=== PATIENT | male | born 1940 | race Caucasian/White ===

== ENCOUNTER 2023-02-27 12:58 | Observation (INO) | payer MEDICARE, SELFPAY ==
[2023-02-27] VITALS (31 sets, daily range): BP systolic 67–111; BP diastolic 37–73; PULSE 59–76; RESP 12–28; TEMP 36.7–37; O2SAT 77–100; BMI 24.9; BMI 25.5
--- NOTE | 2023-02-27 13:19 | XR_ITS ---
The [address] [address] Patient Name: JESÚS BARR MRN: [id number] date: 1940 Sex: M Assigned Patient Location: ER Current Patient Location: ER Accession/Order Number: [id number] Exam Date: 02/27/2023 13:30 Report Date: 02/27/2023 13:47 At the request of: SRINIVASAN SALDANA Procedure: XR chest 1V EXAM: XR chest 1V HISTORY: Dizziness COMPARISON: None. TECHNIQUE: Chest X-ray, 1 view. FINDINGS: Support devices: None. Lungs/pleura: No radiographic evidence of edema or infiltrate. No consolidation, effusion, or pneumothorax. Heart and mediastinum: Normal contours. Bones: No acute abnormality identified. XR/XR chest 1V IMPRESSION: No active disease. Electronically authenticated by: DENNIS SANABRIA Date: 02/27/2023 13:47
--- NOTE | 2023-02-27 13:19 | CT_ITS ---
The [address] [address] Patient Name: JESÚS BARR MRN: [id number] date: 1940 Sex: M Assigned Patient Location: ER Current Patient Location: ER Accession/Order Number: [id number] Exam Date: 02/27/2023 13:27 Report Date: 02/27/2023 13:48 At the request of: SRINIVASAN SALDANA Procedure: CT stroke head/brain wo con EXAM: CT stroke head/brain wo con; [id number] REASON FOR EXAM: Confusion COMPARISON: None. TECHNIQUE: Axial CT images of the head obtained without contrast. Multiplanar reformats generated at the scanner. Dose reduction technique used: Automated exposure control and/or adjustment of the mA and/or kV according to patient size and/or use of iterative reconstruction technique. FINDINGS: Parenchyma: -Mild generalized cerebral volume loss. -No midline shift or mass effect. Basilar cisterns are patent. -No acute intracranial hemorrhage. -No loss of cortical howell-white differentiation to indicate acute cortical infarct. -Moderate multifocal and bilateral periventricular white matter predominant hypoattenuation, nonspecific though commonly seen in the setting of chronic microvascular ischemic disease. Extra-axial spaces: No extra-axial fluid collection or hemorrhage. Ventricles: Normal in size and symmetric. Paranasal sinuses: Visualized paranasal sinuses are clear. Mastoid air cells: Visualized mastoids are clear. Orbits: No acute abnormality. Osseous: No acute findings. Soft tissues: No acute abnormality. CT/CT stroke head/brain wo con IMPRESSION: No acute intracranial abnormality. Electronically authenticated by: ZIA DENT Date: 02/27/2023 13:48
--- NOTE | 2023-02-27 13:24 | PC.NURSE ---
ortho BP standing 96/51, hr 68, pt denies dizziness with changing positions
--- NOTE | 2023-02-27 13:28 | PC.NURSE ---
reports low blood pressure started recently and it was reported that BP low this morning 1 - 1.5 hrs prior to feeling dizzy and confused
--- NOTE | 2023-02-27 13:35 | ED.GENADUL1 ---
Documented by User: MABEL Hilliard 02/27/23 15:11 HPI - General Adult General Chief complaint: Dizziness Stated complaint: DIZZINESS Time Seen by Provider: 02/27/23 13:18 Source: patient Mode of arrival: Wheelchair History of Present Illness HPI narrative: patient is an 82-year-old male who presents to the emergency department for dizziness and an episode of confusion at home prior to arrival. Patient had a colonoscopy yesterday at [facility]. He states he tolerated a colonoscopy well, he had a sandwich last night and had coffee and a doughnut this morning. He states he was feeling dizzy after taking his blood pressure medication this morning although dizziness is resolved at this time. He denies headache, visual changes. 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 He had an episode of confusion lasting approximately one hour at home, he states that he was blank and couldn't remember the name of his PCP who he has seen for many years or the name of his 's sister. believes that his speech may have been mildly slurred although he did not have any unilateral weakness or facial drooping. After the confusion resolved, the patient is at his baseline with no focal medical complaints at this time. he has no history of coronary artery disease, CVA. He does not take any blood thinners although his gave him a baby aspirin this morning. Related Data Home Medications Medication Instructions Recorded Confirmed aspirin 81 mg tablet,delayed 81 mg PO DAILY 02/27/23 02/27/23 release (Adult Aspirin Regimen) lisinopril 10 1 tab PO DAILY 02/27/23 02/27/23 mg-hydrochlorothiazide 12.5 mg tablet metoprolol succinate 25 mg 25 mg PO DAILY 02/27/23 02/27/23 tablet,extended release 24 hr multivitamin (Daily Multi-Vitamin 1 tab PO DAILY 02/27/23 02/27/23 tablet) omeprazole 40 mg capsule,delayed 40 mg PO DAILY 02/27/23 02/27/23 release saw palmetto 450 mg capsule 900 mg PO DAILY 02/27/23 02/27/23 tamsulosin 0.4 mg capsule 0.8 mg PO Q24H 02/27/23 02/27/23 Allergies Allergy/AdvReac Type Severity Reaction Status Date / Time ciprofloxacin [From Cipro] Allergy Severe Verified 02/27/23 13:05 Review of Systems ROS Constitutional Denies: fever or chills Eyes Denies: change in vision Ears, nose, mouth, and throat Denies: throat pain Cardiovascular Denies: chest pain Respiratory Denies: shortness of breath or cough Gastrointestinal Denies: abdominal pain, nausea or vomiting Genitourinary Reports: urinary dribbling; Denies: painful urination Musculoskeletal Denies: back pain or neck pain Integumentary/Breast Denies: rash Neurological Reports: numbness in extremities and dizziness; Denies: headache or weakness in extremities Psychiatric Denies: anxiety Allergic/Immunologic Denies: hives [facility] Medical History (Updated 02/27/23 @ 16:47 by Angely Tamayo) Surgical History (Updated 02/27/23 @ 16:43 by Angely Tamayo) (~02/26/23) (~02/26/23) Social History (Updated 02/27/23 @ 16:48 by Angely Tamayo) Within the past year, how often did you have a drink containing alcohol: monthly or less Smoking status: Current every day smoker What tobacco products do you use: cigars Non-prescribed substance use: denies use 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 Clear speech Respiratory: No respiratory distress, lungs clear bilaterally Cardio: Regular rate and rhythm Gastrointestinal: Abdomen is soft, nondistended and nontender to palpation Extremities: Moves extremities equally Psych: Normal mood and affect Neuro: No focal neuro deficit; NIH stroke scale is 0 at time of exam Skin: Warm, dry, intact Constitutional Vital Signs, click to edit/add: Last Vital Signs Temp 98.1 F 02/27/23 16:39 Pulse 66 02/27/23 19:42 Resp 18 02/27/23 16:39 BP 99/51 02/27/23 16:39 Pulse Ox 95 02/27/23 19:21 O2 Del Method Room Air 02/27/23 19:21 Course Vital Signs Vital signs: Vital Signs Temperature 98.1 F 02/27/23 13:05 Pulse Rate 70 02/27/23 13:05 Respiratory Rate 16 02/27/23 13:05 Blood Pressure 111/59 02/27/23 13:05 Pulse Oximetry 98 02/27/23 13:05 Oxygen Delivery Method Room Air 02/27/23 13:05 Temperature 98.1 F 02/27/23 16:39 Pulse Rate 66 02/27/23 19:42 Respiratory Rate 18 02/27/23 16:39 Blood Pressure 99/51 02/27/23 16:39 Pulse Oximetry 95 02/27/23 19:21 Oxygen Delivery Method Room Air 02/27/23 19:21 Medical Decision Making MDM Narrative Medical decision making narrative: patient was treated with IV fluids for hypotension, he has an NIH stroke scale of zero in the Emergency Room. CT of the brain was stroke protocol, chest x-ray are unremarkable. A 2nd liter of IV fluids were given for hypotension in the Emergency Room although the patient's mentation remained stable. Labs are grossly normal. Discussed with Dr. Salinas (1445pm) for admission to hospitalist service for transient ischemic attack/hypotension. patient requested medication for pain in the left arm, consistent with his chronic polyneuropathy. He was treated with Tylenol in the Emergency Room. Discussed the case with Dr. Lal (1500pm) for [facility] Neu[facility] who is in agreement with treatment plan and admission to this facility for further workup and teleneurology consult as needed. Patient is stable at time of admission, given 324mg of aspirin prior to admission. Blood pressure is 96/55. Patient reevaluated by attending physician prior to admission Medical Records Medical records reviewed: Yes I reviewed the patient's medical records Lab Data Lab results reviewed: Yes I reviewed the patient's lab results Labs: Lab Results 02/27/23 Range/Units 13:30 WBC 11.2 H (4.0-11.0) 10^3/uL RBC 4.02 L (4.70-6.10) 10^6/uL Hgb 12.8 L (14.0-18.0) g/dL Hct 38.4 L (42.0-54.0) % MCV 95.5 H (80.0-94.0) fL MCH 31.8 (25.9-34.0) pg MCHC 33.3 (29.9-35.2) g/dL RDW 13.3 (11.0-15.0) % Plt Count 187 (150-450) 10^3/uL MPV 10.8 (9.5-13.5) fL Neut % (Auto) 76.5 H (43.0-75.0) % Lymph % (Auto) 13.0 L (20.5-60.0) % [place] % (Auto) 8.9 (1.7-12.0) % Eos % (Auto) 0.8 L (0.9-7.0) % Baso % (Auto) 0.4 (0.2-2.0) % Neut # (Auto) 8.6 H (1.4-6.5) 10^3/uL Lymph # (Auto) 1.5 (1.2-3.8) 10^3/uL [place] # (Auto) 1.0 H (0.3-0.8) 10^3/uL Eos # (Auto) 0.1 (0.0-0.7) 10^3/uL Baso # (Auto) 0.0 (0.0-0.1) 10^3/uL Abs Immat Gran (auto) 0.04 H (0.00-0.03) 10^3/uL Imm/Tot Granulo (auto) 0.4 (0.0-0.5) % PT 10.9 (9.0-11.6) sec INR 1.03 Sodium 138 (136-145) mmol/L Potassium 3.6 (3.5-5.1) mmol/L Chloride 100 (98-107) mmol/L Carbon Dioxide 31.8 (21.0-32.0) mmol/L Anion Gap 9.8 BUN 19.0 H (7.0-18.0) mg/dL Creatinine 1.02 (0.70-1.30) mg/dL Est GFR ( Amer) >60 (>=60) Est GFR (Non-Af Amer) >60 (>=60) BUN/Creatinine Ratio 18.6 Glucose 103 (74-106) mg/dL Lactate 1.0 (0.4-2.0) mmol/L Calcium 9.0 (8.5-10.1) mg/dL Total Bilirubin 1.2 H (0.2-1.0) mg/dL AST 30 (15-37) U/L ALT 26 (16-63) U/L Alkaline Phosphatase 167 H (46-116) U/L Troponin I High Sens 7.2 (4.0-76.1) pg/mL Total Protein 6.7 (6.4-8.2) g/dL Albumin 3.5 (3.4-5.0) g/dL Globulin 3.2 g/dL Albumin/Globulin Ratio 1.1 TSH 1.203 (0.358-3.740) uIU/mL Imaging Data CT scan - head: Attestation: I have reviewed the pertinent imaging results. Radiologist's impression: Procedure: CT stroke head/brain wo con EXAM: CT stroke head/brain wo con; [id number] REASON FOR EXAM: Confusion COMPARISON: None. TECHNIQUE: Axial CT images of the head obtained without contrast. Multiplanar reformats generated at the scanner. Dose reduction technique used: Automated exposure control and/or adjustment of the mA and/or kV according to patient size and/or use of iterative reconstruction technique. FINDINGS: Parenchyma: -Mild generalized cerebral volume loss. -No midline shift or mass effect. Basilar cisterns are patent. -No acute intracranial hemorrhage. -No loss of cortical howell-white differentiation to indicate acute cortical infarct. -Moderate multifocal and bilateral periventricular white matter predominant hypoattenuation, nonspecific though commonly seen in the setting of chronic microvascular ischemic disease. Extra-axial spaces: No extra-axial fluid collection or hemorrhage. Ventricles: Normal in size and symmetric. Paranasal sinuses: Visualized paranasal sinuses are clear. Mastoid air cells: Visualized mastoids are clear. Orbits: No acute abnormality. Osseous: No acute findings. Soft tissues: No acute abnormality. IMPRESSION: No acute intracranial abnormality. Electronically authenticated by: ZIA DENT Date: 02/27/2023 13:48 Chest x-ray: Attestation: I have reviewed the pertinent imaging results. Radiologist's impression: Procedure: XR chest 1V EXAM: XR chest 1V HISTORY: Dizziness COMPARISON: None. TECHNIQUE: Chest X-ray, 1 view. FINDINGS: Support devices: None. Lungs/pleura: No radiographic evidence of edema or infiltrate. No consolidation, effusion, or pneumothorax. Heart and mediastinum: Normal contours. Bones: No acute abnormality identified. IMPRESSION: No active disease. Electronically authenticated by: DENNIS SANABRIA Date: 02/27/2023 13:47 ECG Data Attestation: I personally reviewed and interpreted this ECG as follows: (normal sinus rhythm at a rate of sixty, artifact noted with first-degree AV block and right bundle branch block. No acute ST elevation or ectopy. EKG is reviewed by attending physician) Discharge Plan Discharge Chief Complaint: Dizziness Clinical Impression: Acute hypotension, TIA (transient ischemic attack), Acute confusion Patient Disposition: Admitted as Observation Time of Disposition Decision: 14:53 Condition: Good Discharge Date/Time: 02/27/23 16:15 Documented by User: Joel Nayak MD 02/27/23 20:04 HPI - General Adult General Chief complaint: Dizziness Stated complaint: DIZZINESS Time Seen by Provider: 02/27/23 13:18 Related Data Home Medications Medication Instructions Recorded Confirmed aspirin 81 mg tablet,delayed 81 mg PO DAILY 02/27/23 02/27/23 release (Adult Aspirin Regimen) lisinopril 10 1 tab PO DAILY 02/27/23 02/27/23 mg-hydrochlorothiazide 12.5 mg tablet metoprolol succinate 25 mg 25 mg PO DAILY 02/27/23 02/27/23 tablet,extended release 24 hr multivitamin (Daily Multi-Vitamin 1 tab PO DAILY 02/27/23 02/27/23 tablet) omeprazole 40 mg capsule,delayed 40 mg PO DAILY 02/27/23 02/27/23 release saw palmetto 450 mg capsule 900 mg PO DAILY 02/27/23 02/27/23 tamsulosin 0.4 mg capsule 0.8 mg PO Q24H 02/27/23 02/27/23 Allergies Allergy/AdvReac Type Severity Reaction Status Date / Time ciprofloxacin [From Cipro] Allergy Severe Verified 02/27/23 13:05 [facility] Medical History (Updated 02/27/23 @ 16:47 by Angely Tamayo) Surgical History (Updated 02/27/23 @ 16:43 by Angely Tamayo) (~02/26/23) (~02/26/23) Social History (Updated 02/27/23 @ 16:48 by Angely Tamayo) Within the past year, how often did you have a drink containing alcohol: monthly or less Smoking status: Current every day smoker What tobacco products do you use: cigars Non-prescribed substance use: denies use 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 Highest level of school completed/degree received: high school graduate Exam Constitutional Vital Signs, click to edit/add: Last Vital Signs Temp 98.1 F 02/27/23 16:39 Pulse 66 02/27/23 19:42 Resp 18 02/27/23 16:39 BP 99/51 02/27/23 16:39 Pulse Ox 95 02/27/23 19:21 O2 Del Method Room Air 02/27/23 19:21 Course Vital Signs Vital signs: Vital Signs Temperature 98.1 F 02/27/23 13:05 Pulse Rate 70 02/27/23 13:05 Respiratory Rate 16 02/27/23 13:05 Blood Pressure 111/59 02/27/23 13:05 Pulse Oximetry 98 02/27/23 13:05 Oxygen Delivery Method Room Air 02/27/23 13:05 Temperature 98.1 F 02/27/23 16:39 Pulse Rate 66 02/27/23 19:42 Respiratory Rate 18 02/27/23 16:39 Blood Pressure 99/51 02/27/23 16:39 Pulse Oximetry 95 02/27/23 19:21 Oxygen Delivery Method Room Air 02/27/23 19:21 Medical Decision Making MDM Narrative Medical decision making narrative: patient was treated with IV fluids for hypotension, he has an NIH stroke scale of zero in the Emergency Room. CT of the brain was stroke protocol, chest x-ray are unremarkable. A 2nd liter of IV fluids were given for hypotension in the Emergency Room although the patient's mentation remained stable. Labs are grossly normal. Discussed with Dr. Salinas (1445pm) for admission to hospitalist service for transient ischemic attack/hypotension. patient requested medication for pain in the left arm, consistent with his chronic polyneuropathy. He was treated with Tylenol in the Emergency Room. Discussed the case with Dr. Lal (1500pm) for [facility] Neurology who is in agreement with treatment plan and admission to this facility for further workup and teleneurology consult as needed. Patient is stable at time of admission, given 324mg of aspirin prior to admission. Blood pressure is 96/55. Patient reevaluated by attending physician prior to admission I, Dr Nayak, have reviewed the above progress note and course of action in the ER; agree with the above. I have personally seen and evaluated this patient, gone over history and physical, and discussed disposition and treatment plan with the patient. Lab Data Labs: Lab Results 02/27/23 Range/Units 13:30 WBC 11.2 H (4.0-11.0) 10^3/uL RBC 4.02 L (4.70-6.10) 10^6/uL Hgb 12.8 L (14.0-18.0) g/dL Hct 38.4 L (42.0-54.0) % MCV 95.5 H (80.0-94.0) fL MCH 31.8 (25.9-34.0) pg MCHC 33.3 (29.9-35.2) g/dL RDW 13.3 (11.0-15.0) % Plt Count 187 (150-450) 10^3/uL MPV 10.8 (9.5-13.5) fL Neut % (Auto) 76.5 H (43.0-75.0) % Lymph % (Auto) 13.0 L (20.5-60.0) % [place] % (Auto) 8.9 (1.7-12.0) % Eos % (Auto) 0.8 L (0.9-7.0) % Baso % (Auto) 0.4 (0.2-2.0) % Neut # (Auto) 8.6 H (1.4-6.5) 10^3/uL Lymph # (Auto) 1.5 (1.2-3.8) 10^3/uL [place] # (Auto) 1.0 H (0.3-0.8) 10^3/uL Eos # (Auto) 0.1 (0.0-0.7) 10^3/uL Baso # (Auto) 0.0 (0.0-0.1) 10^3/uL Abs Immat Gran (auto) 0.04 H (0.00-0.03) 10^3/uL Imm/Tot Granulo (auto) 0.4 (0.0-0.5) % PT 10.9 (9.0-11.6) sec INR 1.03 Sodium 138 (136-145) mmol/L Potassium 3.6 (3.5-5.1) mmol/L Chloride 100 (98-107) mmol/L Carbon Dioxide 31.8 (21.0-32.0) mmol/L Anion Gap 9.8 BUN 19.0 H (7.0-18.0) mg/dL Creatinine 1.02 (0.70-1.30) mg/dL Est GFR ( Amer) >60 (>=60) Est GFR (Non-Af Amer) >60 (>=60) BUN/Creatinine Ratio 18.6 Glucose 103 (74-106) mg/dL Lactate 1.0 (0.4-2.0) mmol/L Calcium 9.0 (8.5-10.1) mg/dL Total Bilirubin 1.2 H (0.2-1.0) mg/dL AST 30 (15-37) U/L ALT 26 (16-63) U/L Alkaline Phosphatase 167 H (46-116) U/L Troponin I High Sens 7.2 (4.0-76.1) pg/mL Total Protein 6.7 (6.4-8.2) g/dL Albumin 3.5 (3.4-5.0) g/dL Globulin 3.2 g/dL Albumin/Globulin Ratio 1.1 TSH 1.203 (0.358-3.740) uIU/mL Discharge Plan Discharge Chief Complaint: Dizziness Clinical Impression: Acute hypotension, TIA (transient ischemic attack), Acute confusion Patient Disposition: Admitted as Observation Time of Disposition Decision: 14:53 Condition: Good Discharge Date/Time: 02/27/23 16:15
[2023-02-27 13:53] LABS: Basophils Percent Auto 0.4 % (0.2-2.0); Eosinophils Absolute Auto 0.1 10^3/uL (0.0-0.7); Eosinophils Percent Auto 0.8 % (0.9-7.0); Hematocrit 38.4 % (42.0-54.0); Hemoglobin 12.8 g/dL (14.0-18.0); Immature Granulocytes Abs Auto 0.04 10^3/uL (0.00-0.03); Immature Granulocytes Pct Auto 0.4 % (0.0-0.5); Lymphocytes Absolute Auto 1.5 10^3/uL (1.2-3.8); Mean Corpuscular HGB Conc 33.3 g/dL (29.9-35.2); Mean Corpuscular Hemoglobin 31.8 pg (25.9-34.0); Mean Corpuscular Volume 95.5 fL (80.0-94.0); Mean Platelet Volume 10.8 fL (9.5-13.5); Monocytes Percent Auto 8.9 % (1.7-12.0); Neutrophils Absolute Auto 8.6 10^3/uL (1.4-6.5); Neutrophils Percent Auto 76.5 % (43.0-75.0); Platelet Count 187 10^3/uL (150-450); Red Blood Count 4.02 10^6/uL (4.70-6.10); Red Cell Distribution Width 13.3 % (11.0-15.0); White Blood Count 11.2 10^3/uL (4.0-11.0)
[2023-02-27] MEDS: 0.9 % SODIUM CHLORIDE 1,000 ML 100 ML IV (13:57)
[2023-02-27 14:02] LABS: INR 1.03; Prothrombin Time 10.9 sec (9.0-11.6)
[2023-02-27 14:15] LABS: Alanine Aminotransferase 26 U/L (16-63); Albumin Globulin Ratio 1.1; Albumin Level 3.5 g/dL (3.4-5.0); Alkaline Phosphatase 167 U/L (46-116); Anion Gap 9.8; Aspartate Amino Transferase 30 U/L (15-37); BUN Creatinine Ratio 18.6; Bilirubin Total 1.2 mg/dL (0.2-1.0); Carbon Dioxide 31.8 mmol/L (21.0-32.0); Chloride 100 mmol/L (98-107); Estimated GFR (African America >60 (>=60); Estimated GFR (Non-African Ame >60 (>=60); Globulin 3.2 g/dL; Glucose 103 mg/dL (74-106); Potassium 3.6 mmol/L (3.5-5.1); Sodium 138 mmol/L (136-145); Thyroid Stimulating Hormone 1.203 uIU/mL (0.358-3.740); Total Protein 6.7 g/dL (6.4-8.2); Troponin I High Sensitivity 7.2 pg/mL (4.0-76.1)
[2023-02-27] MEDS: 0.9 % SODIUM CHLORIDE 1,000 ML 1000 ML IV (14:35)
--- NOTE | 2023-02-27 14:48 | ECG_ITS ---
The [facility] Test Date: 2023-02-27 Pat Name: JESÚS BARR Department: Room: - Gender: Male R And D Lab Technician: : 1940 Requested By: ARIELLA CHAMBERS Order Number: [id number] Reading MD: ARIELLA CHAMBERS Measurements Intervals [place] Rate: 60 P: 81 SD: 272 QRS: 84 QRSD: 148 T: 48 QT: 468 QTc: 468 Interpretive Statements 1100 Sinus rhythm 2231 First degree AV block 2450 Right bundle branch block 9150 abnormal ECG No previous ECG available for comparison Electronically Signed On 02-28-2023 7:09:04 EDT by ARIELLA CHAMBERS
[2023-02-27] MEDS: ACETAMINOPHEN 325 MG TABLET 650 MG PO (15:13)
[2023-02-27] MEDS: ASPIRIN 81 MG TAB.CHEW 324 MG PO (15:13)
[2023-02-27] MEDS: HYDROXYZINE PAMOATE 25 MG CAPSULE PO (15:47)
[2023-02-27] MEDS: GABAPENTIN 100 MG CAPSULE PO (15:47)
[2023-02-27] MEDS: LACTATED RINGER'S SOLUTION 1,000 ML 100 ML IV (18:19)
[2023-02-27 18:27] LABS: Anion Gap 7.3; BUN Creatinine Ratio 17.3; Calcium 8.5 mg/dL (8.5-10.1); Chloride 103 mmol/L (98-107); Estimated GFR (African America >60 (>=60); Estimated GFR (Non-African Ame >60 (>=60); Glucose 174 mg/dL (74-106); Potassium 3.3 mmol/L (3.5-5.1); Sodium 139 mmol/L (136-145)
[2023-02-27 18:50] LABS: Bilirubin Urine NEGATIVE (NEGATIVE); Blood Urine NEGATIVE (NEGATIVE); Clarity Urine CLEAR (CLEAR); Color Urine DK. YELLOW (YELLOW); Glucose Urine UA NEGATIVE (NEGATIVE); Ketones Urine 15 mg/dL (NEGATIVE); Leukocyte Esterase Urine NEGATIVE (NEGATIVE); Nitrite Urine NEGATIVE (NEGATIVE); Protein Urine NEGATIVE (NEG/TRACE); Specific Gravity Urine 1.015 (1.005-1.025); Urobilinogen Urine 0.2 EU/dL (0.2-1.0); pH Urine 6.5 (5.0-9.0)
[2023-02-27 18:57] LABS: Bacteria Urine TRACE #/HPF (NONE SEEN); Cast Seen? NONE SEEN #/LPF (NONE SEEN); Crystals Seen? None Seen #/HPF (None Seen); Mucus Urine LARGE (NONE SEEN); Squamous Epithelial Cell Urine FEW #/LPF (NONE/RARE); Urine Culture Indicated YES
[2023-02-28] VITALS (10 sets, daily range): BP systolic 130–143; BP diastolic 60–79; PULSE 57–92; RESP 18; TEMP 36.7; O2SAT 95–98
[2023-02-28] MEDS: LACTATED RINGER'S SOLUTION 1,000 ML 100 ML IV (04:01)
[2023-02-28 05:35] LABS: Basophils Percent Auto 0.5 % (0.2-2.0); Eosinophils Absolute Auto 0.2 10^3/uL (0.0-0.7); Hematocrit 34.5 % (42.0-54.0); Hemoglobin 11.6 g/dL (14.0-18.0); Immature Granulocytes Abs Auto 0.03 10^3/uL (0.00-0.03); Immature Granulocytes Pct Auto 0.4 % (0.0-0.5); Lymphocytes Absolute Auto 1.4 10^3/uL (1.2-3.8); Lymphocytes Percent Auto 16.6 % (20.5-60.0); Mean Corpuscular HGB Conc 33.6 g/dL (29.9-35.2); Mean Corpuscular Hemoglobin 32.1 pg (25.9-34.0); Mean Corpuscular Volume 95.6 fL (80.0-94.0); Mean Platelet Volume 11.3 fL (9.5-13.5); Monocytes Absolute Auto 0.9 10^3/uL (0.3-0.8); Monocytes Percent Auto 10.7 % (1.7-12.0); Neutrophils Absolute Auto 5.7 10^3/uL (1.4-6.5); Neutrophils Percent Auto 69.8 % (43.0-75.0); Platelet Count 167 10^3/uL (150-450); Red Blood Count 3.61 10^6/uL (4.70-6.10); Red Cell Distribution Width 13.5 % (11.0-15.0); White Blood Count 8.2 10^3/uL (4.0-11.0)
[2023-02-28] MEDS: OMEPRAZOLE 40 MG CAPSULE.DR PO (08:30)
[2023-02-28] MEDS: POTASSIUM CHLORIDE 10 MEQ ER TABLET 20 MEQ PO (08:30)
[2023-02-28] MEDS: TAMSULOSIN HCL 0.4 MG CAPSULE 0.8 MG PO (08:30)
[2023-02-28] MEDS: METOPROLOL SUCCINATE 25 MG TAB.ER.24H PO (08:30)
[2023-02-28] MEDS: ASPIRIN 81 MG TABLET.DR PO (08:31)
[2023-02-28] MEDS: MULTIVITAMIN TABLET 1 TAB PO (08:31)
--- NOTE | 2023-02-28 09:05 | P.HP_ITS ---
H&P: HPI History of Present Illness Chief complaint: DIZZINESS, TIA, Hypotension Narrative: Patient was admitted from the emergency room after near syncopal episode. Does not sound typical for TIA. No focal neurological deficits. Had recent procedure. Not taking good poor p.o. intake as he typically does not. This is a gentleman that I have met by accident in the past. 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 Highest level of school completed/degree received: high school graduate Meds Home Medications and Allergies Home Medications Medication Instructions Recorded Confirmed Type aspirin 81 mg tablet,delayed 81 mg PO DAILY 02/27/23 02/27/23 History release (Adult Aspirin Regimen) lisinopril 10 1 tab PO DAILY 02/27/23 02/27/23 History mg-hydrochlorothiazide 12.5 mg tablet metoprolol succinate 25 mg 25 mg PO DAILY 02/27/23 02/27/23 History tablet,extended release 24 hr multivitamin (Daily Multi-Vitamin 1 tab PO DAILY 02/27/23 02/27/23 History tablet) omeprazole 40 mg capsule,delayed 40 mg PO DAILY 02/27/23 02/27/23 History release saw palmetto 450 mg capsule 900 mg PO DAILY 02/27/23 02/27/23 History tamsulosin 0.4 mg capsule 0.8 mg PO Q24H 02/27/23 02/27/23 History Allergies Allergy/AdvReac Type Severity Reaction Status Date / Time ciprofloxacin [From Cipro] Allergy Severe Verified 02/27/23 13:05 Exam Constitutional Vital Signs, click to edit/add: Last Vital Signs Temp 98.1 F 02/28/23 05:00 Pulse 62 02/28/23 08:13 Resp 18 02/28/23 05:00 BP 130/60 02/28/23 05:00 Pulse Ox 95 02/28/23 05:00 O2 Del Method Room Air 02/28/23 05:00 Common normals: no apparent distress and average body habitus [facility] Common normals: normocephalic Respiratory Common normals: normal respiratory effort, no retractions and clear to auscultation bilaterally Cardio Common normals: regular rate and regular rhythm Neuro Common normals: oriented x3, CN's II-XII intact bilaterally, moves all extremities and no focal motor deficits Results Labs Labs: Short CBC 02/27/23 02/28/23 Range/Units 13:30 04:35 WBC 11.2 H 8.2 (4.0-11.0) 10^3/uL Hgb 12.8 L 11.6 L (14.0-18.0) g/dL Hct 38.4 L 34.5 L (42.0-54.0) % Plt Count 187 167 (150-450) 10^3/uL BMP 02/27/23 02/27/23 13:30 18:11 Sodium 138 139 Potassium 3.6 3.3 L Chloride 100 103 Carbon Dioxide 31.8 32.0 BUN 19.0 H 18.0 Creatinine 1.02 1.04 Glucose 103 174 H Calcium 9.0 8.5 Liver Function 02/27/23 Range/Units 13:30 Total Bilirubin 1.2 H (0.2-1.0) mg/dL AST 30 (15-37) U/L ALT 26 (16-63) U/L Alkaline Phosphatase 167 H (46-116) U/L Albumin 3.5 (3.4-5.0) g/dL Urine 02/27/23 Range/Units 18:30 Urine Color Dk. yellow (YELLOW) Urine Clarity Clear (CLEAR) Urine pH 6.5 (5.0-9.0) Ur Specific [place] 1.015 (1.005-1.025) Urine Protein Negative (NEG/TRACE) mg/dL Urine Glucose (UA) Negative (NEGATIVE) mg/dL Assessment and Plan Assessment and Plan (1) Acute hypotension: (2) Acute confusion: Plan Patient with altered mental status with hypotension this is likely secondary to fluid status. Medications were adjusted. He was given fluids overnight. He feels back to his baseline. At this point he prefer to be discharged home and continue with work-up as an outpatient, encourage p.o. intake, hold off on diuretics Iron deficiency anemia-this may supplement as an outpatient
--- NOTE | 2023-02-28 10:05 | CM.NOTE ---
Rounds made with Dr. Salinas. Plan for discharge today. Dr. Salinas will add an antacid to discharge medications. Mr. Babcock verbalizes understanding.
--- NOTE | 2023-02-28 12:02 | SWNOTE1 ---
SW met with pt to discuss dc needs. Pt was in bathroom, SW spoke with daughter and . Pt uses a rollator at home, it is a 1 story home. Daughter talks with pt and his daily. They have removed all rugs from the home as well. Nephew lives with pt and in the home. Pt is not current with Home health. SW did speak with physical therapy and no needs. At this time pt and family have no concerns about discharge. SW to follow as needed. SW reviewed [facility] form with family. voiced understanding, no questions. Pt's signed form, original given to pt and copy placed on chart.
--- NOTE | 2023-03-05 16:11 | CM.DCFOLLOWU ---
Person spoke with:patient How are you feeling? well How is your pain? no pain Did you understand your discharge instructions? yes Do you have any questions about your discharge instructions? no Were you given any prescriptions at discharge? no Were you able to get your prescriptions filled? N/A Do you understand how to take your medications as ordered? Yes, no new meds Do you have any questions about your follow up appointment and do you plan to keep your follow up appointment? follow up with PCP scheduled 03/08 Is there anything else that you would like to discuss? no Questions/Comments/Concerns/Other:
== END 2023-02-28 11:55 | disposition home or self-care (01) ==
LOC: ER 15:41 → MS 16:38
PROVIDERS: Physician Assistant; Admitting Provider Family Medicine; Emergency Provider Emergency Medicine; PCP Internal Medicine; Visit Provider Family Medicine
DX: I95.9 Hypotension, unspecified (principal); R41.0 Disorientation, unspecified; D50.9 Iron deficiency anemia, unspecified; Z79.82 Long term (current) use of aspirin; Z79.899 Other long term (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; F17.290 Nicotine dependence, other tobacco product, uncomplicated; G62.9 Polyneuropathy, unspecified
CPT/HCPCS: 36415; 70450; 71045; 80048; 80053; 81001; 81003; 83605; 84443; 84484; 85025; 85610; 87086; 87150; 87186; 93005; 94761; 96360; 96361; 97162; 99285; G0378

== ENCOUNTER 2023-11-28 14:10 | Emergency (ER) | payer MEDICARE, SELFPAY ==
[2023-11-28] VITALS (48 sets, daily range): BP systolic 129–148; BP diastolic 62–93; PULSE 67–92; TEMP 37.1; O2SAT 94–98; BMI 25.1
--- NOTE | 2023-11-28 14:30 | ECG_ITS ---
The [facility] Test Date: 2023-11-28 Pat Name: JESÚS BARR Department: Room: - Gender: Male Director Of Hospitality: : 1940 Requested By: Order Number: [id number] Reading MD: ARIELLA CHAMBERS Measurements Intervals [place] Rate: 78 P: 90 ND: 218 QRS: 88 QRSD: 150 T: 68 QT: 442 QTc: 475 Interpretive Statements 1100 Sinus rhythm 2231 First degree AV block 2450 Right bundle branch block 9150 abnormal ECG Compared to ECG 02/27/2023 13:14:16 No significant changes Electronically Signed On 11-29-2023 14:24:10 EDT by ARIELLA CHAMBERS
--- NOTE | 2023-11-28 14:37 | CT_ITS ---
The [address] [address] Patient Name: JESÚS BARR MRN: [id number] date: 1940 Sex: M Assigned Patient Location: ER Current Patient Location: ER Accession/Order Number: [id number] Exam Date: 11/28/2023 15:25 Report Date: 11/28/2023 15:59 At the request of: SRINIVASAN SALDANA Procedure: CT abdomen pelvis w con EXAMINATION: CT abdomen pelvis w con, 11/28/2023 12:25 PM PDT HISTORY: rectal bleeding COMPARISON: None. TECHNIQUE: CT scan of the abdomen and pelvis was performed with IV contrast. CT dose reduction technique was used, including Automated Exposure Control. FINDINGS: Lung: No significant finding. Liver: No significant finding. Gallbladder: Cholelithiasis. Spleen: No significant finding. Pancreas: No significant finding. Adrenal glands: No significant finding. Kidneys, ureters and bladder: Simple left renal cyst. No hydronephrosis. Mild circumferential bladder wall thickening. Bowel: Colonic diverticulosis without diverticulitis. Intraluminal contrast density involving a sigmoid colon diverticula and layering in the sigmoid colon, for example series 3 image 75 through 83. Normal appendix. Distal esophageal wall thickening. Peritoneum/retroperitoneum: No significant finding. Lymph nodes: No significant finding. Vessels: Mild scattered atherosclerotic calcification. Body wall: No significant finding. Reproductive: Markedly prostatomegaly. Bones: Bony enlargement, cortical thickening and increased trabeculation involving the sacrum and right pelvis, likely Paget's disease. CT/CT abdomen pelvis w con IMPRESSION: Colonic diverticulosis with evidence of active bleeding involving a sigmoid colon diverticula. Cholelithiasis. Markedly prostatomegaly and mild bladder wall hypertrophy. Distal esophageal wall thickening, likely esophagitis. Paget's disease of the pelvis. Critical findings discussed with Srinivasan MONROE 11/28/2023 at 12:58 PM PDT. Electronically authenticated by: LANEY SOSA Date: 11/28/2023 15:59
--- NOTE | 2023-11-28 14:38 | ED_ITS ---
HPI HPI - General Adult General Chief complaint: Abdominal Pain Stated complaint: BLEEDING FROM RECTUM AREA Time Seen by Provider: 11/28/23 14:13 Source: patient Source information: per pt he has had 5 bouts of rectal bleeding that started yesterday night around 2330 Mode of arrival: walk-in Limitations: no limitations History of Present Illness HPI narrative: Patient is an 83-year-old male who presents to the emergency department with his for the evaluation of rectal bleeding that began last night. Patient states initially he had a bowel movement and noted red blood, but he has continued to have multiple episodes today where he does not pass any stool but has the urge to have a bowel movement and passes only maroon blood. He has passed clots. He has saturated a diaper in the car on the way over to the hospital. He states he had a colonoscopy 1 year ago that was unremarkable. He takes an 81 mg aspirin daily, no other blood thinners. He denies any abdominal pain, fevers, chills, nausea, vomiting. He has never had similar symptoms previously. Related Data Home Medications ?Medication ?Instructions ?Recorded ?Confirmed aspirin 81 mg tablet,delayed 81 mg PO DAILY 02/27/23 11/28/23 release (Adult Aspirin Regimen) lisinopril 10 1 tab PO DAILY 02/27/23 11/28/23 mg-hydrochlorothiazide 12.5 mg tablet metoprolol succinate 25 mg 25 mg PO DAILY 02/27/23 11/28/23 tablet,extended release 24 hr multivitamin (Daily Multi-Vitamin 1 tab PO DAILY 02/27/23 11/28/23 tablet) omeprazole 40 mg capsule,delayed 40 mg PO DAILY 02/27/23 11/28/23 release saw palmetto 450 mg capsule 900 mg PO DAILY 02/27/23 11/28/23 tamsulosin 0.4 mg capsule 0.8 mg PO Q24H 02/27/23 11/28/23 Allergies Allergy/AdvReac Type Severity Reaction Status Date / Time ciprofloxacin [From Cipro] Allergy Severe Verified 11/28/23 14:29 Opioid HPI Opioid Management Most Recent Opioid Data: No Data to Display Review of Systems ROS Constitutional Denies: fever or chills Ears, nose, mouth, and throat Denies: throat pain or nasal congestion Cardiovascular Denies: chest pain Respiratory Denies: shortness of breath or cough Gastrointestinal Reports: blood in stool; Denies: abdominal pain, nausea or vomiting Musculoskeletal Denies: back pain Integumentary/Breast Denies: rash Neurological Denies: headache Hematologic/Lymphatic Denies: easy bruising or easy bleeding [facility] Medical History (Updated 11/28/23 @ 16:43 by MABEL Hilliard) Cervical vertebral collapse ?M48.52XA - Collapsed vertebra, not elsewhere classified, cervical region, initial encounter for fracture (ICD-10) Leg fracture, left ?S82.92XA - Unspecified fracture of left lower leg, initial encounter for closed fracture (ICD-10) GERD (gastroesophageal reflux disease) ?K21.9 - Gastro-esophageal reflux disease without esophagitis (ICD-10) Acute confusion ?R41.0 - Disorientation, unspecified (ICD-10) TIA (transient ischemic attack) ?G45.9 - Transient cerebral ischemic attack, unspecified (ICD-10) Hypertension ?I10 - Essential (primary) hypertension (ICD-10) Active Meniere's disease ?H81.09 - Meniere's disease, unspecified ear (ICD-10) Surgical History (Updated 02/27/23 @ 16:43 by Angely Tamayo) History of tonsillectomy ?Z90.89 - Acquired absence of other organs (ICD-10) H/O colonoscopy (~02/26/23) ?Z98.890 - Other specified postprocedural states (ICD-10) H/O esophagogastroduodenoscopy (~02/26/23) ?Z98.890 - Other specified postprocedural states (ICD-10) Social History Within the past year, how often did you have a drink containing alcohol: monthly or less Smoking status: Current every day smoker What tobacco products do you use: cigars Non-prescribed substance use: denies use 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 Small hemorrhoid that is not thrombosed or actively bleeding is noted, no stool noted. Extremities: Moves extremities equally Psych: Normal mood and affect Neuro: No focal neuro deficit Skin: Warm, dry, intact Constitutional Vital Signs, click to edit/add: Last Vital Signs Temp 98.8 F 11/28/23 14:25 Pulse 73 11/28/23 16:30 Resp 18 11/28/23 16:30 BP 148/79 H 11/28/23 16:30 Pulse Ox 98 11/28/23 16:30 O2 Del Method Room Air 11/28/23 16:30 Course Vital Signs Vital signs: Vital Signs Temperature 98.8 F 11/28/23 14:25 Pulse Rate 85 11/28/23 14:25 Respiratory Rate 18 11/28/23 14:25 Blood Pressure 132/64 11/28/23 14:25 Pulse Oximetry 97 11/28/23 14:25 Oxygen Delivery Method Room Air 11/28/23 14:25 Temperature 98.8 F 11/28/23 14:25 Pulse Rate 73 11/28/23 16:30 Respiratory Rate 18 11/28/23 16:30 Blood Pressure 148/79 H 11/28/23 16:30 Pulse Oximetry 98 11/28/23 16:30 Oxygen Delivery Method Room Air 11/28/23 16:30 Medical Decision Making MDM Narrative Medical decision making narrative: IV established, labs and type and screen were drawn for the patient. He is hemodynamically stable in the emergency department. He has no complaints of pain or nausea. Labs show the patient has hemoglobin 12.7 which is stable for him. BUN is mildly elevated at [address] with unremark[address] other labs. CT was reviewed by the radiologist who contacted the ER stating that the patient has a critical result of active bleeding from a sigmoid diverticula. There is no evidence of diverticulitis at this time. Discussed with general surgery, Dr. Jefferson who requested the patient be transferred where he has seen GI previously. Patient has been seen by Dr. Hall for GI at [facility]. I contacted Dr. Mathur who accepted the patient as a GI consult and the patient will be transferred to [facility] to the hospitalist service to Dr. Brasher. Medical Records Medical records reviewed: Yes I reviewed the patient's medical records Lab Data Lab results reviewed: Yes I reviewed the patient's lab results Labs: Lab Results 11/28/23 Range/Units 14:42 WBC 11.1 H (4.0-11.0) 10^3/uL RBC 3.93 L (4.70-6.10) 10^6/uL Hgb 12.7 L (14.0-18.0) g/dL Hct 38.0 L (42.0-54.0) % MCV 96.7 H (80.0-94.0) fL MCH 32.3 (25.9-34.0) pg MCHC 33.4 (29.9-35.2) g/dL RDW 13.3 (11.0-15.0) % Plt Count 223 (150-450) 10^3/uL MPV 10.4 (9.5-13.5) fL Neut % (Auto) 83.1 H (43.0-75.0) % Lymph % (Auto) 9.6 L (20.5-60.0) % Union % (Auto) 6.0 (1.7-12.0) % Eos % (Auto) 0.4 L (0.9-7.0) % Baso % (Auto) 0.4 (0.2-2.0) % Neut # (Auto) 9.2 H (1.4-6.5) 10^3/uL Lymph # (Auto) 1.1 L (1.2-3.8) 10^3/uL Union # (Auto) 0.7 (0.3-0.8) 10^3/uL Eos # (Auto) 0.0 (0.0-0.7) 10^3/uL Baso # (Auto) 0.0 (0.0-0.1) 10^3/uL Abs Immat Gran (auto) 0.06 H (0.00-0.03) 10^3/uL Imm/Tot Granulo (auto) 0.5 (0.0-0.5) % PT 10.8 (9.0-11.6) sec INR 1.02 Sodium 140 (136-145) mmol/L Potassium 3.9 (3.5-5.1) mmol/L Chloride 102 (98-107) mmol/L Carbon Dioxide 28.7 (21.0-32.0) mmol/L Anion Gap 13.2 BUN 23.0 H (7.0-18.0) mg/dL Creatinine 1.19 (0.70-1.30) mg/dL Est GFR ( Amer) >60 (>=60) Est GFR (Non-Af Amer) 58 L (>=60) BUN/Creatinine Ratio 19.3 Glucose 114 H (74-106) mg/dL Lactate 1.4 (0.4-2.0) mmol/L Calcium 9.4 (8.5-10.1) mg/dL Total Bilirubin 1.1 H (0.2-1.0) mg/dL AST 24 (15-37) U/L ALT 24 (16-63) U/L Alkaline Phosphatase 175 H (46-116) U/L Total Protein 6.7 (6.4-8.2) g/dL Albumin 3.7 (3.4-5.0) g/dL Globulin 3.0 g/dL Albumin/Globulin Ratio 1.2 Blood Type O Negative Antibody Screen Negative Imaging Data CT scan - abdomen: Attestation: I have reviewed the pertinent imaging results. Radiologist's impression: ITS Impressions Abdomen/Pelvis CT 11/28/23 14:37 IMPRESSION: Colonic diverticulosis with evidence of active bleeding involving a sigmoid colon diverticula. Cholelithiasis. Markedly prostatomegaly and mild bladder wall hypertrophy. Distal esophageal wall thickening, likely esophagitis. Paget's disease of the pelvis. Critical findings discussed with Catie MONROE 11/28/2023 at 12:58 PM PDT. Electronically authenticated by: LANEY SOSA Date: 11/28/2023 15:59 ECG Data Attestation: I personally reviewed and interpreted this ECG as follows: (Normal sinus rhythm at a rate of 78, first-degree AV block with right bundle branch block, no acute ST elevation. EKG reviewed by attending physician) Discharge Plan Discharge Chief Complaint: Abdominal Pain Clinical Impression: Rectal bleeding Patient Disposition: [facility] Time of Disposition Decision: 16:47 Discharge Location: [facility] Mode of Transportation: EMS
[2023-11-28 14:52] LABS: Basophils Percent Auto 0.4 % (0.2-2.0); Eosinophils Percent Auto 0.4 % (0.9-7.0); Hemoglobin 12.7 g/dL (14.0-18.0); Immature Granulocytes Abs Auto 0.06 10^3/uL (0.00-0.03); Immature Granulocytes Pct Auto 0.5 % (0.0-0.5); Lymphocytes Absolute Auto 1.1 10^3/uL (1.2-3.8); Lymphocytes Percent Auto 9.6 % (20.5-60.0); Mean Corpuscular HGB Conc 33.4 g/dL (29.9-35.2); Mean Corpuscular Hemoglobin 32.3 pg (25.9-34.0); Mean Corpuscular Volume 96.7 fL (80.0-94.0); Mean Platelet Volume 10.4 fL (9.5-13.5); Monocytes Absolute Auto 0.7 10^3/uL (0.3-0.8); Neutrophils Absolute Auto 9.2 10^3/uL (1.4-6.5); Neutrophils Percent Auto 83.1 % (43.0-75.0); Platelet Count 223 10^3/uL (150-450); Red Blood Count 3.93 10^6/uL (4.70-6.10); Red Cell Distribution Width 13.3 % (11.0-15.0); White Blood Count 11.1 10^3/uL (4.0-11.0)
[2023-11-28] MEDS: 0.9 % SODIUM CHLORIDE 1,000 ML 500 ML IV (14:54)
[2023-11-28 15:08] LABS: INR 1.02; Prothrombin Time 10.8 sec (9.0-11.6)
[2023-11-28 15:10] LABS: Alanine Aminotransferase 24 U/L (16-63); Albumin Globulin Ratio 1.2; Albumin Level 3.7 g/dL (3.4-5.0); Alkaline Phosphatase 175 U/L (46-116); Anion Gap 13.2; Aspartate Amino Transferase 24 U/L (15-37); BUN Creatinine Ratio 19.3; Bilirubin Total 1.1 mg/dL (0.2-1.0); Calcium 9.4 mg/dL (8.5-10.1); Carbon Dioxide 28.7 mmol/L (21.0-32.0); Chloride 102 mmol/L (98-107); Estimated GFR (African America >60 (>=60); Estimated GFR (Non-African Ame 58 (>=60); Glucose 114 mg/dL (74-106); Potassium 3.9 mmol/L (3.5-5.1); Sodium 140 mmol/L (136-145); Total Protein 6.7 g/dL (6.4-8.2)
[2023-11-28 15:15] LABS: Lactate/Lactic Acid 1.4 mmol/L (0.4-2.0)
[2023-11-28] MEDS: 0.9 % SODIUM CHLORIDE 1,000 ML 100 ML IV (16:29)
[2023-11-28 18:57] LABS: Basophils Absolute Auto 0.1 10^3/uL (0.0-0.1); Basophils Percent Auto 0.5 % (0.2-2.0); Eosinophils Percent Auto 0.3 % (0.9-7.0); Hematocrit 33.2 % (42.0-54.0); Hemoglobin 11.2 g/dL (14.0-18.0); Immature Granulocytes Abs Auto 0.04 10^3/uL (0.00-0.03); Immature Granulocytes Pct Auto 0.4 % (0.0-0.5); Lymphocytes Absolute Auto 1.4 10^3/uL (1.2-3.8); Lymphocytes Percent Auto 15.2 % (20.5-60.0); Mean Corpuscular HGB Conc 33.7 g/dL (29.9-35.2); Mean Corpuscular Hemoglobin 32.7 pg (25.9-34.0); Mean Corpuscular Volume 96.8 fL (80.0-94.0); Mean Platelet Volume 10.5 fL (9.5-13.5); Monocytes Absolute Auto 0.5 10^3/uL (0.3-0.8); Monocytes Percent Auto 5.8 % (1.7-12.0); Neutrophils Absolute Auto 7.2 10^3/uL (1.4-6.5); Neutrophils Percent Auto 77.8 % (43.0-75.0); Platelet Count 208 10^3/uL (150-450); Red Blood Count 3.43 10^6/uL (4.70-6.10); Red Cell Distribution Width 13.5 % (11.0-15.0); White Blood Count 9.2 10^3/uL (4.0-11.0)
== END 2023-11-28 21:30 | disposition short-term general hospital (02) ==
PROVIDERS: Physician Assistant; Emergency Provider Emergency Medicine; PCP Internal Medicine
DX: K62.5 Hemorrhage of anus and rectum (principal); K21.9 Gastro-esophageal reflux disease without esophagitis; I10 Essential (primary) hypertension; F17.290 Nicotine dependence, other tobacco product, uncomplicated; Z86.73 Personal history of transient ischemic attack (TIA), and cerebral infarction without residual deficits; Z98.890 Other specified postprocedural states; Z90.89 Acquired absence of other organs; Z79.82 Long term (current) use of aspirin; Z79.899 Other long term (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
CPT/HCPCS: 36415; 74177; 80053; 83605; 85025; 85610; 86850; 86900; 86901; 93005; 99285; G0328; Q9967

== ENCOUNTER 2023-12-11 12:10 | Outpatient (OUT) | payer MEDICARE, SELFPAY ==
--- NOTE | 2023-12-11 12:12 | US_ITS ---
The [address] [address] Patient Name: JESÚS BARR MRN: [id number] date: 1940 Sex: M Assigned Patient Location: US Current Patient Location: US Accession/Order Number: [id number] Exam Date: 12/11/2023 12:20 Report Date: 12/11/2023 12:49 At the request of: ARIELLA CHAMBERS Procedure: US right upper quadrant EXAM: US right upper quadrant HISTORY: Abdominal Pain R10.9 COMPARISON: CT abdomen and pelvis 11/28/2023. TECHNIQUE: Real-time Limited abdomen ultrasound. Findings: Evaluation of the pancreas is limited due to overlying bowel gas. The visualized portions are unremarkable. The hepatic parenchyma is coarsened. No focal intrahepatic mass. The main portal vein is patent and demonstrates hepatopedal flow. The gallbladder is fluid-filled. There are stones and sludge within the gallbladder lumen. No gallbladder wall thickening or pericholecystic fluid. The technologist reports a negative sonographic Ortez's sign. No biliary ductal dilatation. The common bile duct measures 0.5 cm. The right kidney measures 9.7 cm. There is good corticomedullary differentiation. No renal stones or collecting system dilatation. No focal mass or perinephric fluid collection. US/US right upper quadrant IMPRESSION: 1. Coarsened hepatic parenchymal echotexture as can be seen with diffuse hepatocellular disease such as fatty infiltration. 2. Stones and sludge within the gallbladder lumen. Electronically authenticated by: MARIBEL FIGUEROA Date: 12/11/2023 12:49
== END 2023-12-11 12:11 | disposition home or self-care (01) ==
LOC: US 12:10
PROVIDERS: PCP Internal Medicine; Visit Provider Internal Medicine
DX: R10.9 Unspecified abdominal pain (principal)
CPT/HCPCS: 76705

== ENCOUNTER 2024-01-02 15:30 | Outpatient (OUT) | payer MEDICARE, SELFPAY ==
[2024-01-02 15:49] LABS: Basophils Percent Auto 0.5 % (0.2-2.0); Eosinophils Absolute Auto 0.2 10^3/uL (0.0-0.7); Eosinophils Percent Auto 2.4 % (0.9-7.0); Hematocrit 35.6 % (42.0-54.0); Hemoglobin 11.7 g/dL (14.0-18.0); Immature Granulocytes Abs Auto 0.02 10^3/uL (0.00-0.03); Immature Granulocytes Pct Auto 0.3 % (0.0-0.5); Lymphocytes Absolute Auto 1.7 10^3/uL (1.2-3.8); Lymphocytes Percent Auto 22.4 % (20.5-60.0); Mean Corpuscular HGB Conc 32.9 g/dL (29.9-35.2); Mean Corpuscular Hemoglobin 32.7 pg (25.9-34.0); Mean Corpuscular Volume 99.4 fL (80.0-94.0); Mean Platelet Volume 10.6 fL (9.5-13.5); Monocytes Absolute Auto 0.6 10^3/uL (0.3-0.8); Neutrophils Percent Auto 66.4 % (43.0-75.0); Platelet Count 223 10^3/uL (150-450); Red Blood Count 3.58 10^6/uL (4.70-6.10); White Blood Count 7.5 10^3/uL (4.0-11.0)
[2024-01-02 16:29] LABS: Percent Iron Saturation 49.4 %
== END 2024-01-02 15:31 | disposition home or self-care (01) ==
LOC: LAB 15:31
PROVIDERS: PCP Internal Medicine; Visit Provider Internal Medicine
DX: D62 Acute posthemorrhagic anemia (principal)
CPT/HCPCS: 36415; 82728; 83540; 83550; 85025

== ENCOUNTER 2024-04-13 13:59 | Emergency (ER) | payer MEDICARE, SELFPAY ==
[2024-04-13 14:06] VITALS: BP 130/61; PULSE 66; TEMP 36.6; O2SAT 96; BMI 21.9
--- OUTSIDE RECORDS SUMMARY | 2024-04-13 14:09 | XMS_ITS | CCD ---
Author Organization [facility] Care Team Providers Care Television Technician Name Role Phone RuthHiren alonso Unavailable Cameron Gaming Unavailable MISC, DR SAMUEL Admitting Unavailable JENNIFER, RIVAS Consulting Unavailable MISC, DR SAMUEL Attending Unavailable BALL, DR KRISHNAN Primary Care Unavailable BALL, DR KRISHNAN Primary Care Unavailable JENNIFER, RIVAS Attending Unavailable JENNIFER, RIVAS Admitting Unavailable WEST, DR FRANKO Robles Consulting Unavailable JENNIFER, RIVAS Consulting Unavailable BALL, DR KRISHNAN Primary Care Unavailable BALL, DR KRISHNAN Admitting Unavailable BALL, DR KRISHNAN Attending Unavailable BALL, DR KRISHNAN Consulting Unavailable BALL, DR KRISHNAN Primary Care Unavailable BALL, DR KRISHNAN Admitting Unavailable BALL, DR KRISHNAN Attending Unavailable BALL, DR KRISHNAN Consulting Unavailable BALL, DR KRISHNAN Primary Care Unavailable BALL, DR KRISHNAN Admitting Unavailable BALL, DR KRISHNAN Attending Unavailable BALL, DR KRISHNAN Consulting Unavailable Asaad, Imad Unavailable DO Cameron Gaming Primary Care Provider MD Gene Nguyễn Attending Provider Asim Mathur Unavailable DO Cameron Gaming Primary Care Provider LUKE Noguera Attending Provider MD Sushil Goodman Attending Provider MD John Adam Attending Provider [phone] Carlos Admit Provider MD George Romero Attending Provider MD Asim Mathur Other Provider MD Syed Buchanan Other Provider Asaad, Imad Admitting Unavailable Asaad, Imad Attending Unavailable Mekhi, Cameron Primary Care Unavailable George Romero Attending Unavailable Asim Mathur Consulting Unavailable Mekhi, Cameron Primary Care Unavailable Lane Carlos Admitting Unavailabl e Syed Buchanan Consulting Unavailable Mekhi, Cameron Primary Care Unavailable Adam, John E Admitting Unavailable Adam, John E Attending Unavailable Sushil Goodman Admitting Sushil Arizmendi Attending Gene Gaming, Cameron Primary Care Unavailable Lesvia Noguera Admitting Unavailable Lesvia Noguera Attending Unavailable Mekhi, Cameron Primary Care Unavailable Mekhi, Cameron Primary Care Unavailable Adam, John E Admitting Unavailable Adam, John E Attending Unavailable Asaad, Imad Admitting Unavailable Asaad, Imad Attending Unavailable Mekhi, Cameron Primary Care Unavailable DO Cameron Gaming Primary Care Provider MD Syed Buchanan Other Provider Damon PATEL Attending Unavailable Syed Buchanan Referring Unavailanthony e Syed Buchanan Attending Unavailabl e Allergies Allergy Classification Reported Allergen(s) Allergy Type Date of Onset Reaction(s) Facility Quinolones (antibiotic) (1 source) Ciprofloxacin Drug Allergy 12-06-19 [facility] Repository (19 sources) Ciprofloxacin Drug Allergy 04-27-20 20 Unknown, Muscle Pain [facility] (2 sources) Ciprofloxacin; Translations: [Cipro] Drug Allergy 05-28-20 17 [facility] Repository (8 sources) HMG-CoA reductase inhibitor Drug allergy Unknown [employer] Other (9 sources) tamsulosin Drug Allergy 10-10-19 Unknown, Unknown Reaction [facility] (1 source) tamsulosin Drug Allergy Unknown [facility] [email or web address] Other (2 sources) Maqukeu-RQC-QkG Reductase Inhibitor Allergy to substance 10-10-19 Unknown Reaction [facility] Medications Current Medications Medication Drug Class(es) Dates Sig (Normalized) Sig (Original) aspirin 81 mg delayed release oral tablet (20 sources) Platelet Aggregation Inhibitor, Nonsteroidal Anti-inflammatory Drug Start: 09-26-2023 take 1 tablet by mouth once daily in the morning Aspirin (Adult Aspirin Regimen) 81 mg tablet,delayed release (DR/EC) Active 81 MG PO Every morning September 26, 2023 1:00am Start: 02-26-2023 End: 09-21-2023 take 81 mg by mouth once daily Aspirin Discontinued 81 MG PO Daily February 26, 2023 12:00am September 21, 2023 3:14pm Start: 04-22-2020 End: 02-26-2023 take 81 mg by mouth once daily Aspirin Discontinued 81 MG PO Daily April 22, 2020 12:00am February 26, 2023 8:03am take 1 tablet by galdino th once daily Aspirin 81 81 MG 1 tablet Orally Once a day Active dutasteride 0.5 mg oral capsule (4 sources) 5-alpha Reductase Inhibitor Start: 12-01-2023 take 0.5 mg by mouth once daily Dutasteride Active 0.5 MG PO Daily December 01, 2023 12:00am gabapentin 100 mg oral capsule (18 sources) Anti-epileptic Agent Start: 10-24-2023 take 200 mg by mouth once daily at bedtime Gabapentin Active 200 MG PO every day in the morning and at bedtime October 24, 2023 12:00am Start: 10-24-2023 take 300 mg by mouth once daily at bedtime Gabapentin Active 300 MG PO every day in the morning and at bedtime October 24, 2023 12:00am Start: 09-26-2023 End: 09-26-2023 take 100 mg by mouth three times daily Gabapentin Discontinued 100 MG PO Three times daily September 26, 2023 1:00am September 26, 2023 12:17pm hydroCHLOROthiazide 25 mg oral tablet (3 sources) Thiazide Diuretic Start: 02-04-2024 take 25 mg by mouth once daily in the morning Hydrochlorothiazide Active 25 MG PO Every morning February 04, 2024 12:39pm Start: 01-18-2024 End: 02-04-2024 take 25 mg by mouth once daily in the morning Hydrochlorothiazide Discontinued 25 MG PO Every morning January 18, 2024 4:23pm February 04, 2024 12:39pm Start: 01-15-2024 End: 01-18-2024 take 12.5 mg by mouth once daily in the morning Hydrochlorothiazide Discontinued 12.5 MG PO Every morning January 15, 2024 12:00am January 18, 2024 4:23pm hydroCHLOROthiazide 12.5 mg / lisinopril 10 mg oral tablet (20 sources) Thiazide Diuretic, Angiotensin Converting Enzyme Inhibitor Start: 04-22-2020 take 1 tablet by mouth once daily in the morning Lisinopril-Hydrochlorothiazide Active 1 TAB PO Every morning April 22, 2020 12:00am take 1 tablet by mouth every twe nty-four hours 24 hr metoprolol succinate 25 mg extended release oral tablet (20 sources) beta-Adrenergic Nav Start: 02-26-2023 take 25 mg by mouth once daily in the morning Metoprolol Succinate Active 25 MG PO Every morning February 26, 2023 12:00am Start: 04-22-2020 End: 02-26-2023 take 50 mg by mouth twice daily Metoprolol Tartrate Discontinued 50 MG PO Twice daily April 22, 2020 12:00am February 26, 2023 7:58am Multivitamin preparation (20 sources) Start: 09-26-2023 take 1 tablet by mouth once daily at bedtime Multivitamin Active 1 TAB PO Daily at bedtime September 26, 2023 1:00am Start: 09-26-2023 take 1 tablet by galdino th once daily Multivitamin Active 1 TAB PO Daily September 26, 2023 1:00am Start: 02-26-2023 End: 09-21-2023 take 1 tablet by mouth once daily Multivitamin Discontinued 1 TAB PO Daily February 26, 2023 12:00am September 21, 2023 3:15pm Start: 02-26-2023 take 1 tablet by galdino th once daily Multivitamin Active 1 TAB PO Daily February 26, 2023 12:00am mupirocin 0.02 mg/mg topical ointment (5 sources) RNA Synthetase Inhibitor Antibacterial Start: 02-13-2023 Mupirocin 2 % 1 application Externally Twice a day for 10 days Jan, Active omeprazole 40 mg delayed release oral capsule (20 sources) Proton Pump Inhibitor Start: 02-26-2023 End: 11-07-2023 take 40 mg by mouth once daily in the morning Omeprazole Active 40 MG PO Every morning November 07, 2023 12:00am ondansetron 4 mg disintegrating oral tablet (7 sources) Serotonin-3 Receptor Antagonist Start: 12-20-2023 End: 01-02-2024 take 1 tablet by mouth every six hours as needed for nausea and vomiting Ondansetron Active 0 .ROUTE .COMPLEX January 02, 2024 8:39pm DISSOLVE ONE TABLET BY MOUTH EVERY 6 HOURS NEEDED FOR NAUSEA AND/OR VOMITING FOR 5 DAYS Start: 12-06-2023 End: 12-20-2023 take 4 mg by mouth every six hours Ondansetron Discontinued 4 MG PO Every 6 hours 16 12December 06, 2023 12:00am December 20, 2023 3:36pm polyethylene glycol 3350 130546 mg / potassium chloride 2970 mg / sodium bicarbonate 6740 mg / sodium chloride 5860 mg / sodium sulfate 89026 mg powder for oral solution (6 sources) Osmotic Laxative Start: 01-16-2023 take 236 g by mouth once daily Golytely 236 GM 236 GM Orally THE DAY BEFORE THE COLONOSCOPY for 1 days Dec, Active Start: 01-16-2023 polysaccharide iron complex 150 mg oral capsule (4 sources) Start: 12-01-2023 Polysaccharide Iron Complex Active 150 MG PO Every 48 hours December 01, 2023 12:00am Saw Deeth (20 sources) Start: 09-26-2023 take 450 mg by mouth twice daily at mealtime Saw Deeth Active 450 MG PO Twice daily September 26, 2023 1:00am give with food (meal/snack) Start: 02-26-2023 End: 09-21-2023 take 450 mg by mouth twice daily at mealtime Saw Deeth Discontinued 450 MG PO Twice daily February 26, 2023 12:00am September 21, 2023 3:15pm give with food (meal/snack) Start: 02-26-2023 take 450 mg by mouth twice daily at mealtime Saw Deeth Active 450 MG PO Twice daily February 26, 2023 12:00am give with food (meal/snack) tamsulosin hydrochloride 0.4 mg oral capsule (20 sources) alpha-Adrenergic Nav Start: 02-26-2023 End: 03-04-2024 take 0.4 mg by mouth twice daily Tamsulosin Active 0.4 MG PO Twice daily 180 90 March 04, 2024 1:12pm Start: 11-01-2022 take 1 capsule by [facility] every twenty-four hours Tamsulosin HCl 0.4 MG 1 capsule Orally Once a day Oct, Active triamcinolone acetonide 1 mg/ml topical cream (1 source) Corticosteroid Start: 01-14-2024 Triamcinolone Acetonide Active 1 APPLIC TOPICAL Twice daily January 14, 2024 12:00am Completed/Discontinued Medications Medication Drug Class(es) Dates Sig (Normalized) Sig (Original) amoxicillin 875 mg / clavulanate 125 mg oral tablet (1 source) Penicillin-class Antibacterial Start: 01-23-2024 End: 03-28-2024 take 1 tablet by mouth every twelve hours Amoxicillin-Pot Clavulanate Discontinued 1 TAB PO Every 12 hours 14 January 23, 2024 12:00am March 28, 2024 12:01pm celecoxib 200 mg oral capsule (20 sources) Nonsteroidal Anti-inflammatory Drug Start: 09-26-2023 End: 11-28-2023 take 1 capsule by mouth once daily in the morning Celecoxib (Celebrex) 200 mg capsule Discontinued 200 MG PO Every morning September 26, 2023 1:00am November 28, 2023 11:15pm Start: 02-26-2023 End: 09-21-2023 take 200 mg by mouth once daily Celecoxib Discontinued 200 MG PO Daily February 26, 2023 12:00am September 21, 2023 3:14pm cephalexin 500 mg oral capsule (5 sources) Cephalosporin Antibacterial Start: 11-14-2023 End: 11-28-2023 take 500 mg by mouth three times daily Cephalexin Discontinued 500 MG PO Three times daily November 14, 2023 12:00am November 28, 2023 11:15pm diazePAM 5 mg oral tablet (11 sources) Benzodiazepine Start: 04-28-2020 End: 02-26-2023 take 5 mg by mouth four times daily Diazepam Discontinued 5 MG PO Four times daily 40 April 28, 2020 12:00am February 26, 2023 8:03am doxycycline hyclate 100 mg oral capsule (10 sources) Tetracycline-class Drug Start: 01-14-2024 End: 03-28-2024 take 100 mg by mouth twice daily Doxycycline Hyclate Discontinued 100 MG PO Twice daily 14 January 14, 2024 12:00am March 28, 2024 12:01pm Start: 02-13-2023 take 1 capsule by [facility] twice daily as needed Doxycycline Hyclate 100 MG 1 capsule Orally twice daily for 7 days Jan, Not-Taking/PRN lisinopril 5 mg oral tablet (1 source) Angiotensin Converting Enzyme Inhibitor Start: 01-18-2024 End: 01-21-2024 take 5 mg by mouth once daily Lisinopril Discontinued 5 MG PO Daily January 18, 2024 12:00am January 21, 2024 1:28pm meloxicam 15 mg oral tablet (15 sources) Nonsteroidal Anti-inflammatory Drug Start: 04-22-2020 End: 04-28-2020 take 15 mg by mouth once daily Meloxicam Discontinued 15 MG PO Daily April 22, 2020 12:00am April 28, 2020 8:30am Sglrflma-Lnd-Ciker-V it K-Lycop (Men's Multivitamin) 400-20-300 mcg Tablet (11 sources) Start: 04-22-2020 End: 02-26-2023 take 1 tablet by mouth once daily Whoawnnh-Wjj-Wdodd -Vit K-Lycop (Men's Multivitamin) 400-20-300 mcg Tablet Discontinued 1 TAB PO Daily April 22, 2020 12:00am February 26, 2023 8:03am oxyCODONE hydrochloride 5 mg oral tablet (16 sources) Opioid Agonist Start: 11-14-2023 End: 11-28-2023 take 5-10 mg by mouth every six hours Oxycodone Discontinued 5 - 10 MG PO Q6H 40 8 November 14, 2023 November 28, 2023 11:18pm Start: 04-28-2020 End: 02-26-2023 take 5 mg by mouth every four to six hours Oxycodone Discontinued 5 MG PO EVERY 4-6 HOURS 70 14 April 28, 2020 February 26, 2023 8:03am sulfamethoxazole 800 mg / trimethoprim 160 mg oral tablet (14 sources) Dihydrofolate Reductase Inhibitor Antibacterial, Sulfonamide Antimicrobial Start: 09-21-2023 End: 09-26-2023 take 1 tablet by mouth twice daily Sulfamethoxazole-Trimethoprim (Bactrim Ds) 800-160 mg tablet Discontinued 1 TAB PO Twice daily September 21, 2023 1:00am September 26, 2023 11:11am Start: 03-07-2023 take 1 tablet by galdino every twelve hours Bactrim DS 800-160 MG 1 tablet Orally Twice a day for 14 days Feb, Active Problems Active Problems Problem Classification Problem Date Documented Date Episodic/Chronic Abdominal pain (2 sources) Abdominal pain; Translations: [Unspecified abdominal pain] 12-06-2023 Episodic Acquired foot deformities (18 sources) Foot-drop; Translations: [Foot drop, left foot] 10-10-2023 Episodic Acute bronchitis (8 sources) Acute bronchitis due to other specified organisms; Translations: [Acute bronchitis] Episodic Acute posthemorrhagic anemia (7 sources) Acute posthemorrhagic anemia; Translations: [Acute posthemorrhagic anemia] 12-05-2023 Episodic Cardiac dysrhythmias (20 sources) Unspecified atrial flutter; Translations: [Supraventricular tachycardia] Onset: 4 10-24-2023 Chronic Chronic kidney disease (20 sources) Chronic kidney disease, unspecified; Translations: [Chronic kidney disease stage 3] Onset: 6 09-26-2023 Chronic Chronic kidney disease (5 sources) Chronic kidney disease; Translations: [CHRONIC KIDNEY DISEASE STAGE 3A] Onset: 6 Deficiency and other anemia (19 sources) Iron deficiency anemia due to blood loss; Translations: [Iron deficiency anemia secondary to blood loss (chronic)] 09-21-2023 Chronic Deficiency and other anemia (2 sources) Iron deficiency anemia secondary to blood loss (chronic) Chronic Deficiency and other anemia (1 source) Iron deficiency anemia secondary to blood loss (chronic); Translations: [Iron deficiency anemia secondary to blood loss (chronic)] Onset: 3 Chronic Deficiency and other anemia (5 sources) Anemia, unspecified; Translations: [ANEMIA UNSPECIFIED] Onset: 3 Episodic Deficiency and other anemia (2 sources) Anemia; Translations: [Anemia, unspecified] 12-05-2023 Episodic Diseases of mouth; excluding dental (16 sources) Lesion of tongue; Translations: [Other diseases of tongue] Episodic Disorders of lipid metabolism (20 sources) Familial hypercholesterolemia; 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] Onset: 6 09-26-2023 Chronic Diverticulosis and diverticulitis (17 sources) Diverticular disease; Translations: [Diverticulosis of intestine, part unspecified, without perforation or abscess without bleeding] Onset: 4 11-28-2023 Chronic E Codes: Natural/environment (1 source) Bitten or stung by nonvenomous insect and other nonvenomous arthropods, initial encounter Episodic Esophageal disorders (11 sources) Gastro-esophageal reflux disease with esophagitis; Translations: [Gastroesophageal reflux disease with esophagitis without hemorrhage] 09-21-2023 Chronic Essential hypertension (20 sources) Essential hypertension; Translations: [Essential (primary) hypertension] Onset: 4 Chronic Fluid and electrolyte disorders (1 source) Dehydration Episodic Gastritis and duodenitis (1 source) Acute gastritis with bleeding Episodic Gastrointestinal hemorrhage (11 sources) Acute lower gastrointestinal hemorrhage; Translations: [Gastrointestinal hemorrhage, unspecified] Onset: 4 11-28-2023 Episodic Genitourinary symptoms and ill-defined conditions (20 sources) Other retention of urine; Translations: [Finding of sensation of bladder] Onset: 4 Episodic Hyperplasia of prostate (20 sources) Benign prostatic hypertrophy with outflow obstruction; Translations: [Benign prostatic hyperplasia with lower urinary tract symptoms] Onset: 2 Chronic Hypertension with complications and secondary hypertension (12 sources) Hypertensive chronic kidney disease with stage 1 through stage 4 chronic kidney disease, or unspecified chronic kidney disease; Translations: [Malignant hypertensive chronic kidney disease] Onset: 2 Chronic Immunizations and screening for infectious disease (8 sources) Encounter for immunization; Translations: [Vaccination given] Episodic Inflammatory conditions of male genital organs (1 source) Acute prostatitis Episodic Nausea and vomiting (11 sources) Nausea; Translations: [Nausea] Resolved: 1 12-06-2023 Episodic Open wounds of head; neck; and trunk (8 sources) Laceration without foreign body of scalp, subsequent encounter; Translations: [Laceration of head without foreign body] Episodic Osteoarthritis (10 sources) Primary osteoarthritis, right shoulder; Translations: [Localized, primary osteoarthritis of the shoulder region] 03-27-2024 Chronic Other acquired deformities (16 sources) Spondylolisthesis; Translations: [Spondylolisthesis, cervical region] Episodic Other acquired deformities (9 sources) Lumbar spondylolisthesis; Translations: [Spondylolisthesis, lumbar region] 10-10-2023 Episodic Other acquired deformities (9 sources) Spondylolisthesis, lumbar region; Translations: [Acquired spondylolisthesis] Onset: 4 10-10-2023 Episodic Other aftercare (3 sources) Other [facility] (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; Translations: [OTH 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 DRUG THERAPY] Onset: 2 Episodic Other aftercare (6 sources) Long-term current use of drug therapy; Translations: [Other watermaster (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] Episodic Other gastrointestinal disorders (3 sources) Dysphagia, pharyngoesophageal phase; Translations: [Dysphagia, pharyngoesophageal phase] Episodic Other gastrointestinal disorders (5 sources) Pharyngeal dysphagia; Translations: [Dysphagia, pharyngoesophageal phase] Episodic Other hereditary and degenerative nervous system conditions (15 sources) Motor neuron disease; 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, unspecified] Chronic Other hereditary and degenerative nervous system conditions (1 source) Motor neuron disease, unspecified Onset: 2 Resolved: 2 Chronic Other injuries and conditions due to external causes (1 source) Other injury of unspecified body region, initial encounter Episodic Other injuries and conditions due to external causes (3 sources) History of falling; Translations: [History of falling] Episodic Other injuries and conditions due to external causes (5 sources) History of fall; Translations: [History of falling] Episodic Other nervous system disorders (20 sources) Idiopathic peripheral neuropathy; Translations: [Hereditary and idiopathic neuropathy, unspecified] 10-18-2023 Chronic Other nervous system disorders (4 sources) Hereditary and idiopathic neuropathy, unspecified; Translations: [Unspecified hereditary and idiopathic peripheral neuropathy] Onset: 2 Resolved: 2 Chronic Other nervous system disorders (15 sources) Neuropathy; Translations: [Idiopathic progressive neuropathy] Chronic Other nervous system disorders (2 sources) Idiopathic progressive neuropathy Onset: 2 Resolved: 2 Chronic Other nervous system disorders (4 sources) Polyneuropathy, unspecified; Translations: [POLYNEUROPATHY UNSPECIFIED] Onset: 2 Chronic Other nervous system disorders (20 sources) Carpal tunnel syndrome; Translations: [Carpal tunnel syndrome, unspecified upper limb] 09-26-2023 Chronic Other nervous system disorders (16 sources) Carpal tunnel syndrome, unspecified upper limb; Translations: [Carpal tunnel syndrome] Chronic Other nervous system disorders (9 sources) Carpal tunnel syndrome, left upper limb; Translations: [Carpal tunnel syndrome] Onset: 4 Chronic Other nervous system disorders (9 sources) Carpal tunnel syndrome of left wrist; Translations: [Carpal tunnel syndrome, left upper limb] 09-21-2023 Chronic Other nervous system disorders (15 sources) Carpal tunnel syndrome, bilateral upper limbs; Translations: [Carpal tunnel syndrome] 10-10-2023 Chronic Other non-traumatic joint disorders (3 sources) Pain in right shoulder; Translations: [Pain in right shoulder] Episodic Other non-traumatic joint disorders (5 sources) Shoulder joint pain; Translations: [Pain in right shoulder] Episodic Other non-traumatic joint disorders (2 sources) Pain in left shoulder; Translations: [Left shoulder pain] 03-27-2024 Episodic Other nutritional; endocrine; and metabolic disorders (3 sources) Overweight; Translations: [Overweight] Episodic Other nutritional; endocrine; and metabolic disorders (5 sources) Overweight; Translations: [Overweight] Episodic Other screening for suspected conditions (not mental disorders or infectious disease) (20 sources) Elevated prostate specific antigen [PSA]; Translations: [Raised prostate specific antigen] Onset: 6 Resolved: 0 Episodic Other skin disorders (2 sources) Other specified follicular disorders; Translations: [Other specified follicular disorders] Episodic Other skin disorders (6 sources) Hair follicle disorder; Translations: [Other specified follicular disorders] Episodic Paralysis (16 sources) Brown-Sequard syndrome; 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 Peripheral and visceral atherosclerosis (18 sources) Atherosclerosis of [place] arteries of extremities with intermittent claudication, left leg; Translations: [Intermittent claudication of left lower limb co-occurrent and due to atherosclerosis] 09-21-2023 Chronic Screening and history of mental health and substance abuse codes (2 sources) Encounter for screening for depression; Translations: [Encounter for screening for depression] Episodic Spondylosis; intervertebral disc disorders; other back problems (20 sources) Cervical spondylosis with myelopathy; Translations: [Other spondylosis with myelopathy, cervical region] Onset: 7 Resolved: 2 Chronic Substance-related disorders (8 sources) Nicotine dependence, cigarettes, in remission; Translations: [Tobacco user] Chronic Superficial injury; contusion (1 source) Insect bite (nonvenomous), right lower leg, initial encounter Episodic Unclassified (3 sources) Low back pain, unspecified; Translations: [Low back pain, unspecified] Onset: Past or Other Problems Problem Classification Problem Date Documented Da te Episodic/Chronic Deficiency and other anemia (1 source) Iron deficiency anemia, unspecified; Translations: [Iron deficiency anemia, unspecified] Onset: 02-26-2023 Episodic Esophageal disorders (1 source) Esophageal disorders Malaise and fatigue (8 sources) Chronic fatigue, unspecified; Translations: [Chronic fatigue syndrome] Resolved: 05-05-2020 Chronic Neoplasms of unspecified nature or uncertain behavior (8 sources) Neoplasm of uncertain behavior of skin; Translations: [Neoplasm of uncertain behavior of skin] Resolved: 03-24-2021 Episodic Other gastrointestinal disorders (2 sources) Drug induced constipation; Translations: [Drug induced constipation] Resolved: 03-24-2021 Episodic Other gastrointestinal disorders (6 sources) Drug-induced constipation; Translations: [Drug induced constipation] Resolved: 03-24-2021 Episodic Other nervous system disorders (4 sources) Paresthesia of skin; Translations: [PARESTHESIA OF SKIN] Onset: 12-27-2021 Episodic Other nervous system disorders (1 source) Other abnormalities of gait and mobility; Translations: [OTHER ABNORMALITIES GAIT AND MOBILITY] Onset: 01-03-2022 Episodic Spondylosis; intervertebral disc disorders; other back problems (14 sources) Spinal stenosis, lumbar region with neurogenic claudication; Translations: [Sciatica, left side] Onset: 04-05-2017 Resolved: 08-29-2021 Episodic Sprains and strains (8 sources) Sprain of left rotator cuff capsule, subsequent encounter; Translations: [Sprain of left rotator cuff capsule] Resolved: 03-24-2021 Episodic Results Test Name Value Interpretation Reference Range Facility Basophils Auto (Bld) [#/Vol] on 01-02-2024 Basophils (Bld) [#/Vol] 0.0 10 3/uL 0.0-0.1 [facility] Basophils/100 WBC Auto (Bld) on 01-02-2024 Basophils/100 WBC (Bld) 0.5 % 0.2-2.0 [facility] Eosinophils/100 WBC Auto (Bl d)on 01-02-2024 Eosinophils/100 WBC (Bld) 2.4 % 0.9-7.0 [facility] [facility] Erythrocyte distribution wid th Auto (RBC) [Ratio]on 01-02-2024 Erythrocyte distribution width (RBC) [Ratio] 14.0 % 11.0-15.0 [facility] Hematocrit Auto (Bld) [Volum e fraction]on 01-02-2024 Hematocrit (Bld) [Volume fraction] 35.6 % Low 42.0-54.0 [facility] Hemoglobin [Mass/volume] in Bloodon 01-02-2024 Hemoglobin (Bld) [Mass/Vol] 11.7 g/dL Low 14.0-18.0 [facility] Iron binding capacity [Mass/ volume] in Serum or Plasmaon 01-02-2024 Iron binding capacity [Mass/Vol] 330.0 ug/dL 250.0-450.0 [facility] Iron saturation [Mass Fracti on] in Serum or Plasmaon 01-02-2024 Iron saturation [Mass fraction] 49.4 % [facility] Laboratory - Chemistry and C hemistry - challengeon 01-02-2024 Ferritin [Mass/Vol] 81.0 ng/mL 26.0-388.0 [facility] Iron [Mass/Vol] 163.0 ug/dL 65.0-175.0 [facility] Laboratory - Hematology and Cell countson 01-02-2024 Immature granulocytes/100 WBC (Bld) 0.3 % 0.0-0.5 [facility] Leukocytes [#/volume] correc bekah for nucleated erythrocytes in Blood by Automated counon 01-02-2024 WBC corrected for nucl RBC Auto (Bld) [#/Vol] 7.5 10 3/uL 4.0-11.0 [facility] Lymphocytes Auto (Bld) [#/Vo l]on 01-02-2024 Lymphocytes (Bld) [#/Vol] 1.7 10 3/uL 1.2-3.8 [facility] Lymphocytes/100 WBC Auto (Bl d)on 01-02-2024 Lymphocytes/100 WBC (Bld) 22.4 % 20.5-60.0 [facility] MCH Auto (RBC) [Entitic mass ]on 01-02-2024 MCH (RBC) [Entitic mass] 32.7 pg 25.9-34.0 [facility] MCHC Auto (RBC) [Mass/Vol]on 01-02-2024 MCHC (RBC) [Mass/Vol] 32.9 g/dL 29.9-35.2 [facility] MCV Auto (RBC) [Entitic vol] on 01-02-2024 MCV (RBC) [Entitic vol] 99.4 fL High 80.0-94.0 [facility] Monocytes Auto (Bld) [#/Vol] on 01-02-2024 Monocytes (Bld) [#/Vol] 0.6 10 3/uL 0.3-0.8 [facility] Monocytes/100 WBC Auto (Bld) on 01-02-2024 Monocytes/100 WBC (Bld) 8.0 % 1.7-12.0 [facility] Neutrophils Auto (Bld) [#/Vo l]on 01-02-2024 Neutrophils (Bld) [#/Vol] 5.0 10 3/uL 1.4-6.5 [facility] Neutrophils/100 WBC Auto (Bl d)on 01-02-2024 Neutrophils/100 WBC (Bld) 66.4 % 43.0-75.0 [facility] No Panel Informationon 01-01 Eosinophils # (Auto) 0.2 10 3/uL 0.0-0.7 [facility] Immature Granulocyte # (Auto) 0.02 10 3/uL 0.00-0.03 [facility] Platelet mean volume Auto (B ld) [Entitic vol]on 01-02-2024 Platelet mean volume (Bld) [Entitic vol] 10.6 fL 9.5-13.5 [facility] Platelets Auto (Bld) [#/Vol] on 01-02-2024 Platelets (Bld) [#/Vol] 223 10 3/uL 150-450 [facility] RBC Auto (Bld) [#/Vol]on RBC (Bld) [#/Vol] 3.58 10 6/uL Low 4.70-6.10 [facility] Consultation Noteon 12-21-19 Consultation Note [id number] Normal [facility] RAD - CT Reporton 12-21-2023 RAD - CT Report [id number] Normal [facility] Basic Metabolic Panelon Creatinine Clr Calc Pharmacy 56.60 Normal [facility] Comment on above: Result Comment: PERF ORMED BY: [place] [address] PATHOLOGIST ASSEMBLER CHASSIS JAMISON ANDINO M.D. Performed By: #### JODY Cummings CBCNO #### [place] [address] [place] GFR/1.73 sq M.predicted MDRD (S/P/Bld) [Vol rate/Area] mL/min/{1.73_m2} Normal [facility] Comment on above: Performed By: #### JODY Cummings, CBCNO #### [facility] [address] [place] [address] [place] Calcium [Mass/volume] in Ser um or PlasmaOrdered By: George Romero on 12-01-2023 Calcium [Mass/Vol] 8.8 mg/dL 8.6-10.3 [facility] Comment on above: Performed By: #### JODY Cummings, CBCNO #### [facility] [address] [place] [address] [place] Carbon dioxide, total [Moles /volume] in Serum or PlasmaOrdered By: George Romero on 12-01-2023 CO2 [Moles/Vol] 28.2 mmol/L 21.0-31.0 [facility] Comment on above: Performed By: #### JODY Cummings, CBCNO #### [facility] [address] [place] [address] [place] Chloride [Moles/volume] in S jose or PlasmaOrdered By: George Romero on 12-01-2023 Chloride [Moles/Vol] 109 mmol/L 98-107 [facility] Comment on above: Performed By: #### M JODY Crenshaw, CBCNO #### [facility] [address] Creatinine [Mass/volume] in Serum or PlasmaOrdered By: George Romero on 12-01-2023 Creatinine [Mass/Vol] 0.94 mg/dL 0.70-1.30 [facility] Comment on above: Performed By: #### JODY Cummings, CBCNO #### [address] Erythrocyte distribution wid th [Ratio] by Automated countOrdered By: George Romero on 12-01-2023 Erythrocyte distribution width (RBC) [Ratio] 13.7 % 12.0-14.8 [facility] Comment on above: Performed By: #### JODY Cummings, CBCNO #### [address] Erythrocytes [#/volume] in B lood by Automated countOrdered By: George Romero on 12-01-2023 RBC (Bld) [#/Vol] 2.57 10*6/uL 3.90-5.60 [facility] Comment on above: Performed By: #### JODY Cummings, CBCNO #### [address] Glucose [Mass/volume] in Ser um or PlasmaOrdered By: George Romero on 12-01-2023 Glucose [Mass/Vol] 88 mg/dL 70-100 [facility] Comment on above: ADA recommended refe rence rangeRandom Glucose Reference Range is dependent on time and content of last meal. Glucose of more than 200 mg/dL in a nonstressed, ambulatory subject supports the diagnosis of Diabetes Mellitus. Result Comment: [place] om Glucose Reference Range is dependent on time and content of last meal. Glucose of more than 200 mg/dL in a nonstressed, ambulatory subject supports the diagnosis of Diabetes Mellitus. ADA recommended reference range Performed By: #### JODY Cummings, CBCNO #### [address] Hematocrit [Volume Fraction] of Blood by Automated countOrdered By: George Romero on 12-01-2023 Hematocrit (Bld) [Volume fraction] 24.8 % 38.8-50.0 [facility] Comment on above: Performed By: #### JODY Cummings, CBCNO #### [address] Hemoglobin [Mass/volume] in BloodOrdered By: George Romero on 12-01-2023 Hemoglobin (Bld) [Mass/Vol] 8.5 g/dL 13.0-17.0 [facility] Comment on above: Performed By: #### JODY Cummings, CBCNO #### [address] Hemogram CBC Without Diffon 12-01-2023 Mean Corpuscular HGB Conc 34.4 g/dL Normal 32.5-35.6 [facility] Comment on above: Performed By: #### JODY Cummings, CBCNO #### [address] WBC (Bld) [#/Vol] 5.0 10*3/uL Normal 4.1-10.5 [facility] Comment on above: Performed By: #### JODY Cummings, CBCNO #### [address] Leukocytes [#/volume] correc bekah for nucleated erythrocytes in Blood by Automated counOrdered By: George Romero on 12-01-2023 WBC corrected for nucl RBC Auto (Bld) [#/Vol] 5.0 10*3/uL 4.1-10.5 [facility] MCH [Entitic mass] by Automa bekah countOrdered By: George Romero on 12-01-2023 MCH (RBC) [Entitic mass] 33.2 pg 27.5-35.2 [facility] Comment on above: Performed By: #### JODY Cummings, CBCNO #### [address] MCHC Auto (RBC) [Mass/Vol]Or dered By: George Romero on 12-01-2023 MCHC (RBC) [Mass/Vol] 34.4 g/dL 32.5-35.6 [facility] MCV [Entitic volume] by Auto mated countOrdered By: George Romero on 12-01-2023 MCV (RBC) [Entitic vol] 96.7 fL 83.5-101 [facility] Comment on above: Performed By: #### JODY Cummings CBCNO #### [facility] [address] Magnesium [Mass/volume] in S jose or PlasmaOrdered By: George Romero on 12-01-2023 Magnesium [Mass/Vol] 1.6 mg/dL 1.9-2.7 [facility] Comment on above: Result Comment: PERF ORMED BY: [place] [address] PATHOLOGIST ASSEMBLER CHASSIS JAMISON ANDINO M.D. Performed By: #### JODY Cummings CBCNO #### [address] No Panel InformationOrdered By: George Romero on 12-01-2023 Estimated GFR (CKD-EPI) > 60.0 mL/Min [facility] Creatinine Clearance (Chem 56.60 [facility] Platelet mean volume [Entiti c volume] in Blood by Automated countOrdered By: George Romero on 12-01-2023 Platelet mean volume (Bld) [Entitic vol] 8.8 fL 6.6-10.1 [facility] Comment on above: Result Comment: PERF ORMED BY: [place] [address] PATHOLOGIST ASSEMBLER CHASSIS JAMISON ANDINO M.D. Performed By: #### JODY Cummings, CBCNO #### [facility] [address] [place] [address] [place] Platelets [#/volume] in Bloo d by Automated countOrdered By: George Romero on 12-01-2023 Platelets (Bld) [#/Vol] 208 10*3/uL 150-450 [facility] Comment on above: Performed By: #### JODY Cummings CBCNO #### [facility] [address] [place] [address] [place] Potassium [Moles/volume] in Serum or PlasmaOrdered By: George oRmero on 12-01-2023 Potassium [Moles/Vol] 3.7 mmol/L 3.5-5.1 [facility] Comment on above: Performed By: #### JODY Cummings, CBCNO #### [facility] [address] Serum or plasma anion gap de terminationOrdered By: George Romero on 12-01-2023 Anion gap [Moles/Vol] 7.5 mmol/L 6.0-15.0 [facility] Comment on above: Performed By: #### JODY Cummings CBCNO #### [facility] [address] [place] [address] [place] Sodium [Moles/volume] in Ser um or PlasmaOrdered By: George Romero on 12-01-2023 Sodium [Moles/Vol] 141 mmol/L 136-145 [facility] Comment on above: Performed By: #### JODY Cummings CBCNO #### [place] [address] [place] Urea nitrogen [Mass/volume] in Serum or PlasmaOrdered By: George Romero on 12-01-2023 Urea nitrogen [Mass/Vol] 9 mg/dL 7-25 [facility] Comment on above: Performed By: #### JODY Cummings, CBCNO #### [facility] [address] [place] [address] [place] Basic Metabolic Panelon Anion gap [Moles/Vol] 7.2 mmol/L Normal 6.0-15.0 [facility] Comment on above: Performed By: #### P SATOTAL #### [address] Calcium [Mass/Vol] 8.9 mg/dL Normal 8.6-10.3 [facility] Comment on above: Performed By: #### P SATOTAL #### [place] [address] [place] Chloride [Moles/Vol] 107 mmol/L Normal 98-107 [facility] Comment on above: Performed By: #### P SATOTAL #### [place] [address] [place] CO2 [Moles/Vol] 29.5 mmol/L Normal 21.0-31.0 [facility] Comment on above: Performed By: #### P SATOTAL #### [place] [address] [place] Creatinine [Mass/Vol] 0.88 mg/dL Normal 0.70-1.30 [facility] Comment on above: Performed By: #### P SATOTAL #### [place] [address] [place] Creatinine Clr Calc Pharmacy 60.45 Normal [facility] Comment on above: Result Comment: PERF ORMED BY: [place] [address] PATHOLOGIST ASSEMBLER CHASSIS JAMISON ANDINO M.D. Performed By: #### P SATOTAL #### [address] GFR/1.73 sq M.predicted MDRD (S/P/Bld) [Vol rate/Area] mL/min/{1.73_m2} Normal [facility] Comment on above: Performed By: #### P SATOTAL #### [address] Glucose [Mass/Vol] 93 mg/dL Normal 70-100 [facility] Comment on above: Result Comment: [place] Glucose Reference Range is dependent on time and content of last meal. Glucose of more than 200 mg/dL in a nonstressed, ambulatory subject supports the diagnosis of Diabetes Mellitus. ADA recommended reference range Performed By: #### P SATOTAL #### [place] [address] [place] Potassium [Moles/Vol] 3.7 mmol/L Normal 3.5-5.1 [facility] Comment on above: Performed By: #### P SATOTAL #### [address] Sodium [Moles/Vol] 140 mmol/L Normal 136-145 [facility] Comment on above: Performed By: #### P SATOTAL #### [address] Urea nitrogen [Mass/Vol] 13 mg/dL Normal 7-25 [facility] Comment on above: Performed By: #### P SATOTAL #### [address] Hemogram CBC Without Diffon 11-30-2023 Erythrocyte distribution width (RBC) [Ratio] 13.7 % Normal 12.0-14.8 [facility] Comment on above: Performed By: #### M Den CBCMAXIMO, BMP ####[address] Hematocrit (Bld) [Volume fraction] 26.4 % Low 38.8-50.0 [facility] Comment on above: Performed By: #### SAUL Cummings, BMP ####[address] Hemoglobin (Bld) [Mass/Vol] 9.1 g/dL Low 13.0-17.0 [facility] Comment on above: Performed By: #### Elaina Crenshaw CBCNO, BMP ####[address] MCH (RBC) [Entitic mass] 33.3 pg Normal 27.5-35.2 [facility] Comment on above: Performed By: #### M Den CBCNO, BMP ####[address] MCV (RBC) [Entitic vol] 96.3 fL Normal 83.5-101 [facility] Comment on above: Performed By: #### Elaina Crenshaw CBCNO, BMP ####[address] Mean Corpuscular HGB Conc 34.6 g/dL Normal 32.5-35.6 [facility] Comment on above: Performed By: #### SAUL Cummings, BMP ####[address] Platelet mean volume (Bld) [Entitic vol] 8.8 fL Normal 6.6-10.1 [facility] Comment on above: Result Comment: PERF ORMED BY: [place] [address] PATHOLOGIST ASSEMBLER CHASSIS JAMISON ANDINO M.D. Performed By: #### SAUL Cummings, BMP ####[address] Platelets (Bld) [#/Vol] 200 10*3/uL Normal 150-450 [facility] Comment on above: Performed By: #### SAUL Cummings, BMP ####[address] RBC (Bld) [#/Vol] 2.74 10*6/uL Low 3.90-5.60 [facility] Comment on above: Performed By: #### SAUL Cummings, BMP ####[address] WBC (Bld) [#/Vol] 5.6 10*3/uL Normal 4.1-10.5 [facility] Comment on above: Performed By: #### SAUL Cummings, BMP ####[address] Magnesiumon 11-30-2023 Magnesium [Mass/Vol] 1.7 mg/dL Low 1.9-2.7 [facility] Comment on above: Result Comment: PERF ORMED BY: [place] [address] PATHOLOGIST ASSEMBLER CHASSIS JAMISON ANDINO M.D. Performed By: #### P SATOTAL #### [address] PSA Total (Not a Screen)on 0 11-30-2023 PSA Total (Not a Screen) 18.310 ng/mL High 0.000-4.000 [facility] Comment on above: Result Comment: Seri al tumor marker results determined by assays using different manufacturers or methods may not be comparable. [facility] paperback machine operator and method: [employer] DXI, CHEMILUMINESCENT IMMUNOASSAY. PERFORMED BY: [place] [address] PATHOLOGIST ASSEMBLER CHASSIS JAMISON ANDINO M.D. Performed By: #### P SATOTAL #### [facility] [address] [place] [address] Prostate specific Ag [Mass/v olume] in Serum or PlasmaOrdered By: Syed Buchanan on 11-30-2023 Prostate specific Ag [Mass/Vol] 18.310 ng/mL 0.000-4.000 [facility] Comment on above: Serial tumor marker results determined by assays using different manufacturers or methods may not be comparable.[facility] paperback machine operator and method:[employer] DXI, CHEMILUMINESCENT IMMUNOASSAY. Urine Cultureon 11-30-2023 Bacteria identified Cx Nom (U) Comment clean catch <9,000 colonies/ml mixed bacterial skin contaminants 2 Days PERFORMED BY: [place] [address] PATHOLOGIST ASSEMBLER CHASSIS JAMISON ANDINO M.D. Normal [facility] Comment on above: Performed By: #### C UU #### [facility] [address] [place] [address] Urine culture routineOrdered By: Syed Buchanan on 11-30-2023 Bacteria identified Cx Nom (U) 2 Days [facility] ABO/Rh Retypeon 11-29-2023 ABO/RH Recheck Result Negative Normal [facility] Comment on above: Result Comment: PERF ORMED BY: [place] [address] PATHOLOGIST ASSEMBLER CHASSIS JAMISON ANDINO M.D. Activated partial thrombopla stin time (aPTT) in platelet poor plasma by coagulation aOrdered By: Bárbara Ramirez on 11-29-2023 aPTT Coag (PPP) [Time] 35.6 s 25.1-36.5 [facility] Comment on above: A hematocrit value g reater than 55% may lead to inaccurate results in coagulation testing. Patients having hematocrit values >55% require a special collection tube for coagulation studies. Please contact the laboratory at [phone] for redraw instructions. Alanine aminotransferase [En zymatic activity/volume] in Serum or PlasmaOrdered By: Bárbara Ramirez on 11-29-2023 ALT [Catalytic activity/Vol] 13 U/L 7-52 [facility] Comment on above: Performed By: #### P TT, HEPATIC, PT, CBC, MG, BMP ####[address] Albumin [Mass/volume] in Ser um or Plasma by Bromocresol green (BCG) dye binding methoOrdered By: Bárbara Ramirez on 11-29-2023 Albumin BCG dye [Mass/Vol] 3.6 g/dL 3.5-5.7 [facility] Alkaline phosphatase [Enzyma tic activity/volume] in Serum or PlasmaOrdered By: Bárbara Ramirez on 11-29-2023 ALP [Catalytic activity/Vol] 117 U/L 34-104 [facility] Comment on above: Performed By: #### P TT, HEPATIC, PT, CBC, MG, BMP ####[place] [id number] [facility] Aspartate aminotransferase [ Enzymatic activity/volume] in Serum or PlasmaOrdered By: Bárbara Ramirez on 11-29-2023 AST [Catalytic activity/Vol] 21 U/L 13-39 [facility] Comment on above: Performed By: #### P TT, HEPATIC, PT, CBC, MG, BMP ####[place] [id number] [facility] Automated basophil %Ordered By: Bárbara Ramirez on 11-29-2023 Basophils/100 WBC (Bld) 0.7 % . [facility] Comment on above: Performed By: #### P TT, HEPATIC, PT, CBC, MG, BMP ####[place] [id number] [facility] Automated basophil countOrde red By: Bárbara Ramirez on 11-29-2023 Basophils (Bld) [#/Vol] 0.0 10*3/uL 0.0-0.2 [facility] Comment on above: Result Comment: PERF ORMED BY: [facility] [address] [place] [address] PATHOLOGIST ASSEMBLER CHASSIS JAMISON ANDINO M.D. Performed By: #### P TT, HEPATIC, PT, CBC, MG, BMP ####[address] Automated blood monocyte cou ntOrdered By: Bárbara Ramirez on 11-29-2023 Monocytes (Bld) [#/Vol] 0.7 10*3/uL 0.0-0.8 [facility] Comment on above: Performed By: #### P TT, HEPATIC, PT, CBC, MG, BMP ####[address] Automated eosinophil %Ordere d By: Bárbara Ramirez on 11-29-2023 Eosinophils/100 WBC (Bld) 1.6 % . [facility] Comment on above: Performed By: #### P TT, HEPATIC, PT, CBC, MG, BMP ####[address] Automated eosinophil countOr dered By: Bárbara Ramirez on 11-29-2023 Eosinophils (Bld) [#/Vol] 0.1 10*3/uL 0.0-0.45 [facility] Comment on above: Performed By: #### P TT, HEPATIC, PT, CBC, MG, BMP ####[address] Automated monocyte %Ordered By: Bárbara Ramirez on 11-29-2023 Monocytes/100 WBC (Bld) 9.2 % . [facility] Comment on above: Performed By: #### P TT, HEPATIC, PT, CBC, MG, BMP ####[address] Automated neutrophil %Ordere d By: Bárbara Ramirez on 11-29-2023 Neutrophils/100 WBC (Bld) 65.8 % . [facility] Comment on above: Performed By: #### P TT, HEPATIC, PT, CBC, MG, BMP ####[address] Basic Metabolic Panelon 05 Anion gap [Moles/Vol] 10.8 mmol/L Normal 6.0-15.0 [facility] Comment on above: Performed By: #### P TT, HEPATIC, PT, CBC, MG, BMP ####[address] Calcium [Mass/Vol] 9.1 mg/dL Normal 8.6-10.3 [facility] Comment on above: Performed By: #### P TT, HEPATIC, PT, CBC, MG, BMP ####[address] Chloride [Moles/Vol] 105 mmol/L Normal 98-107 [facility] Comment on above: Performed By: #### P TT, HEPATIC, PT, CBC, MG, BMP ####[address] CO2 [Moles/Vol] 27.3 mmol/L Normal 21.0-31.0 [facility] Comment on above: Performed By: #### P TT, HEPATIC, PT, CBC, MG, BMP ####[address] Creatinine [Mass/Vol] 0.92 mg/dL Normal 0.70-1.30 [facility] Comment on above: Performed By: #### P TT, HEPATIC, PT, CBC, MG, BMP ####[address] Creatinine Clr Calc Pharmacy 57.83 Normal [facility] Comment on above: Performed By: #### P TT, HEPATIC, PT, CBC, MG, BMP ####[address] GFR/1.73 sq M.predicted MDRD (S/P/Bld) [Vol rate/Area] mL/min/{1.73_m2} Normal [facility] Comment on above: Performed By: #### P TT, HEPATIC, PT, CBC, MG, BMP ####[address] Glucose [Mass/Vol] 83 mg/dL Normal 70-100 [facility] Comment on above: Result Comment: [facility] Glucose Reference Range is dependent on time and content of last meal. Glucose of more than 200 mg/dL in a nonstressed, ambulatory subject supports the diagnosis of Diabetes Mellitus. ADA recommended reference range Performed By: #### P TT, HEPATIC, PT, CBC, MG, BMP ####[address] Potassium [Moles/Vol] 4.1 mmol/L Normal 3.5-5.1 [facility] Comment on above: Performed By: #### P TT, HEPATIC, PT, CBC, MG, BMP ####[address] Sodium [Moles/Vol] 139 mmol/L Normal 136-145 [facility] Comment on above: Performed By: #### P TT, HEPATIC, PT, CBC, MG, BMP ####[address] Urea nitrogen [Mass/Vol] 19 mg/dL Normal 7-25 [facility] Comment on above: Performed By: #### P TT, HEPATIC, PT, CBC, MG, BMP ####[address] Bilirubin.direct [Mass/volum e] in Serum or PlasmaOrdered By: Bárbara Ramirez on 11-29-2023 Bilirubin.direct [Mass/Vol] 0.20 mg/dL 0.03-0.18 [facility] Bilirubin.total [Mass/volume ] in Serum or PlasmaOrdered By: Bárbara Ramirez on 11-29-2023 Bilirubin [Mass/Vol] 1.4 mg/dL 0.3-1.0 [facility] Comment on above: Samples from patient s who have taken Naproxen have shown spurious elevation in Total Bilirubin levels. A metabolite of Naproxen, O-desmethylnaproxen, has been shown to interfere with the Jendrassik-Grof method for measuring Total Bilirubin. Result Comment: Samp les from patients who have taken Naproxen have shown spurious elevation in Total Bilirubin levels. A metabolite of Naproxen, O-desmethylnaproxen, has been shown to interfere with the Jendrassik-Grof method for measuring Total Bilirubin. Performed By: #### P TT, HEPATIC, PT, CBC, MG, BMP ####[address] Complete Blood Count Auto Di ffon 11-29-2023 Erythrocyte distribution width (RBC) [Ratio] 13.8 % Normal 12.0-14.8 [facility] Comment on above: Performed By: #### P TT, HEPATIC, PT, CBC, MG, BMP ####[address] Hematocrit (Bld) [Volume fraction] 30.3 % Low 38.8-50.0 [facility] Comment on above: Performed By: #### P TT, HEPATIC, PT, CBC, MG, BMP ####[address] Hemoglobin (Bld) [Mass/Vol] 10.4 g/dL Low 13.0-17.0 [facility] Comment on above: Performed By: #### P TT, HEPATIC, PT, CBC, MG, BMP ####[address] MCH (RBC) [Entitic mass] 33.1 pg Normal 27.5-35.2 [facility] Comment on above: Performed By: #### P TT, HEPATIC, PT, CBC, MG, BMP ####[address] MCV (RBC) [Entitic vol] 96.4 fL Normal 83.5-101 [facility] Comment on above: Performed By: #### P TT, HEPATIC, PT, CBC, MG, BMP ####[address] Mean Corpuscular HGB Conc 34.3 g/dL Normal 32.5-35.6 [facility] Comment on above: Performed By: #### P TT, HEPATIC, PT, CBC, MG, BMP ####[address] NRBC% 0.1 /100{WBC} Normal 0-0.5 [facility] Comment on above: Performed By: #### P TT, HEPATIC, PT, CBC, MG, BMP ####[address] Platelet mean volume (Bld) [Entitic vol] 9.1 fL Normal 6.6-10.1 [facility] Comment on above: Performed By: #### P TT, HEPATIC, PT, CBC, MG, BMP ####[address] Platelets (Bld) [#/Vol] 207 10*3/uL Normal 150-450 [facility] Comment on above: Performed By: #### P TT, HEPATIC, PT, CBC, MG, BMP ####[address] RBC (Bld) [#/Vol] 3.14 10*6/uL Low 3.90-5.60 [facility] Comment on above: Performed By: #### P TT, HEPATIC, PT, CBC, MG, BMP ####[address] ECG 12 lead ECGon 11-29-2023 ECG 12 lead ECG [facility] [address] [place] [address] [place] [address] Electrocardiograph Report Signed Patient: Rishi Babcock MR#: [id number] : 1940 Acct:[id number] Age/Sex: 83 / M ADM Date: 11/28/23 Loc: Room: [address] [place] [address] Type: ADM IN Attending Dr: George Romero MD Ordering Provider: Bárbara Ramirez APRN Date of Service: 11/29/2309/22/499 ECG/ECG 12 lead ECG: HTN, Hx of a-fib with ablation years ago Copies to: Test Reason : Blood Pressure : / mmHG Vent. Rate : 077 BPM Atrial Rate : 077 BPM P-R Int : 230 ms QRS Dur : 156 ms QT Int : 456 ms P-R-T Axes : 080 069 044 degrees QTc Int : 516 ms Sinus rhythm with 1st degree AV block Right bundle branch block Abnormal ECG When compared with ECG of 24-OCT-2023 10:22, No significant change was found Confirmed by SABI AKINS [facility], ANGELITA ([id number]) on 11/29/2023 4:13:14 PM Referred By: Electronically Signed By:ANGELITA ESCUDERO MD [facility] Transcribed By: MUS Signed By Angelita Escudero MD, FACC 11/29/23 1613 Normal [facility] Hepatic Panelon 11-29-2023 Albumin [Mass/Vol] 3.6 g/dL Normal 3.5-5.7 [facility] Comment on above: Performed By: #### P TT, HEPATIC, PT, CBC, MG, BMP ####[facility] Bilirubin,Indirect 1.2 mg/dL Normal [facility] Comment on above: Performed By: #### P TT, HEPATIC, PT, CBC, MG, BMP ####[facility] [place] [id number] [facility] Bilirubin.indirect [Mass/Vol] 0.20 mg/dL High 0.03-0.18 [facility] Comment on above: Performed By: #### P TT, HEPATIC, PT, CBC, MG, BMP ####[facility] [place] [id number] [facility] INR in Platelet poor plasma by Coagulation assayOrdered By: Bárbara Ramirez on 11-29-2023 INR Coag (PPP) [Relative time] 1.0 {INR} [facility] Comment on above: INR Therapeutic Rang e A) Pre- and Peroperative OAT started two weeks before surgery. NOT HIP SURGERY: 1.5 - 2.5 HIP SURGERY: 2 - 3B) Primary and secondary prevention of venous THROMBOSIS: 2 - 3C) Active venous thrombosis, pulmonary embolismand prevention of recurrent venous thrombosis: 2 - 3D) Prevention of arterial thromboembolismincluding patients with mechanical heart valves: 3 - 4.5 Result Comment: INR Therapeutic Range A) Pre- and Peroperative OAT started two weeks before surgery. NOT HIP SURGERY: 1.5 - 2.5 HIP SURGERY: 2 - 3 B) Primary and secondary prevention of venous THROMBOSIS: 2 - 3 C) Active venous thrombosis, pulmonary embolism and prevention of recurrent venous thrombosis: 2 - 3 D) Prevention of arterial thromboembolism including patients with mechanical heart valves: 3 - 4.5 Performed By: #### P TT, HEPATIC, PT, CBC, MG, BMP ####[place] [id number] [facility] Leukocytes [#/volume] in Blo od by Automated countOrdered By: Bárbara Ramirez on 11-29-2023 WBC (Bld) [#/Vol] 7.3 10*3/uL 4.1-10.5 [facility] Comment on above: Performed By: #### P TT, HEPATIC, PT, CBC, MG, BMP ####[place] [id number] [facility] Lymphocytes [#/volume] in Bl ood by Automated countOrdered By: Bárbara Ramirez on 11-29-2023 Lymphocytes (Bld) [#/Vol] 1.7 10*3/uL 1.00-4.8 [facility] Comment on above: Performed By: #### P TT, HEPATIC, PT, CBC, MG, BMP ####[place] [id number] [facility] Lymphocytes/100 leukocytes i n Blood by Automated countOrdered By: Bárbara Ramirez on 11-29-2023 Lymphocytes/100 WBC (Bld) 22.7 % . [facility] Comment on above: Performed By: #### P TT, HEPATIC, PT, CBC, MG, BMP ####[place] [id number] [facility] Magnesiumon 11-29-2023 Magnesium [Mass/Vol] 1.4 mg/dL Low 1.9-2.7 [facility] Comment on above: Result Comment: PERF ORMED BY: [facility] [address] [place] [id number] PATHOLOGIST ASSEMBLER CHASSIS JAMSION ANDINO M.D. Performed By: #### P TT, HEPATIC, PT, CBC, MG, BMP ####[place] [address] [place] [id number] [facility] Neutrophils [#/volume] in Bl ood by Automated countOrdered By: Bárbara Ramirez on 11-29-2023 Neutrophils (Bld) [#/Vol] 4.8 10*3/uL 1.8-7.7 [facility] Comment on above: Performed By: #### P TT, HEPATIC, PT, CBC, MG, BMP ####[place] [address] [place] [id number] [facility] Nucleated erythrocytes [Pres ence] in Blood by Automated countOrdered By: Bárbara Ramirez on 11-29-2023 Nucleated RBC Auto Ql (Bld) 0.1 /100{WBC} 0-0.5 [facility] Partial Thromboplastin Timeo n 11-29-2023 aPTT Coag (Bld) [Time] 35.6 s Normal 25.1-36.5 [facility] Comment on above: Result Comment: A he matocrit value greater than 55% may lead to inaccurate results in coagulation testing. Patients having hematocrit values >55% require a special collection tube for coagulation studies. Please contact the laboratory at [phone] for redraw instructions. PERFORMED BY: [facility] [address] [place] [phone] PATHOLOGIST ASSEMBLER CHASSIS JAMISON ANDINO M.D. Performed By: #### P TT, HEPATIC, PT, CBC, MG, BMP ####[place] [address] [place] [id number] [facility] Protein [Mass/volume] in Ser um or PlasmaOrdered By: Bárbara Ramirez on 11-29-2023 Protein [Mass/Vol] 5.4 g/dL 6.4-8.9 [facility] Comment on above: Performed By: #### P TT, HEPATIC, PT, CBC, MG, BMP ####[place] [address] [place] [phone] [facility] Prothrombin time (PT)Ordered By: Bárbara Ramirez on 11-29-2023 PT Coag (PPP) [Time] 11.5 s 9.0-12.9 [facility] Comment on above: A hematocrit value g reater than 55% may lead to inaccurate results in coagulation testing. Patients having hematocrit values >55% require a special collection tube for coagulation studies. Please contact the laboratory at [phone] for redraw instructions. Result Comment: A he matocrit value greater than 55% may lead to inaccurate results in coagulation testing. Patients having hematocrit values >55% require a special collection tube for coagulation studies. Please contact the laboratory at [phone] for redraw instructions. Performed By: #### P TT, HEPATIC, PT, CBC, MG, BMP ####[place] [address] [address] Serum globulin measurement b y calculation (mass/volume)Ordered By: Bárbara Ramirez on 11-29-2023 Globulin (S) [Mass/Vol] 1.8 g/dL [facility] Comment on above: Performed By: #### P TT, HEPATIC, PT, CBC, MG, BMP ####[address] Serum or plasma albumin/glob ulin mass ratioOrdered By: Bárbara Ramirez on 11-29-2023 Albumin/Globulin [Mass ratio] 2.0 {ratio} [facility] Comment on above: Performed By: #### P TT, HEPATIC, PT, CBC, MG, BMP ####[address] Serum or plasma non-glucuron idated bilirubin measurement (mass/volume)Ordered By: Bárbara Ramirez on 11-29-2023 Bilirubin.indirect [Mass/Vol] 1.2 mg/dL [facility] Type and Screenon 11-29-2023 ABO and Rh group Nom (Bld) Blood group O Rh(D) negative Normal [facility] Comment on above: Order Comment: Trans fuse now? N Result Comment: PERF ORMED BY: [facility] [address] [place] [address] PATHOLOGIST ASSEMBLER CHASSIS JAMISON ANDINO M.D. Basophils Auto (Bld) [#/Vol] on 11-28-2023 Basophils (Bld) [#/Vol] 0.1 10 3/uL 0.0-0.1 [facility] Basophils/100 WBC Auto (Bld) on 11-28-2023 Basophils/100 WBC (Bld) 0.5 % 0.2-2.0 [facility] Eosinophils/100 WBC Auto (Bl d)on 11-28-2023 Eosinophils/100 WBC (Bld) 0.3 % 0.9-7.0 [facility] Erythrocyte distribution wid th Auto (RBC) [Ratio]on 11-28-2023 Erythrocyte distribution width (RBC) [Ratio] 13.5 % 11.0-15.0 [facility] Estimated glomerular filtrat ion rate (GFR) non- Americanon 11-28-2023 GFR/1.73 sq M.predicted among non-blacks MDRD (S/P/Bld) [Vol rate/Area] 58 mL/min/{1.73_m2} >=60 [facility] Globulin Calc (S) [Mass/Vol] on 11-28-2023 Globulin (S) [Mass/Vol] 3.0 g/dL [facility] Hematocrit Auto (Bld) [Volum e fraction]on 11-28-2023 Hematocrit (Bld) [Volume fraction] 33.2 % 42.0-54.0 [facility] Hemoglobin [Mass/volume] in Bloodon 11-28-2023 Hemoglobin (Bld) [Mass/Vol] 11.2 g/dL 14.0-18.0 [facility] Hemoglobin and Hematocriton 11-28-2023 Hematocrit (Bld) [Volume fraction] 32.4 % Low 38.8-50.0 [facility] Comment on above: Result Comment: PERF ORMED BY: [facility] [address] [place] [address] PATHOLOGIST ASSEMBLER CHASSIS JAMISON ANDINO M.D. Performed By: #### H H #### [address] [address] [facility] Hemoglobin (Bld) [Mass/Vol] 11.0 g/dL Low 13.0-17.0 [facility] Comment on above: Performed By: #### H H #### [facility] [address] INR in Platelet poor plasma by Coagulation assayon 11-28-2023 INR Coag (PPP) [Relative time] 1.02 {INR} [facility] Comment on above: DESIRED INR:2.0-3.0 CONDITIONS NOT LISTED BELOW2.5-3.5 FOR PROSTHETIC HEART VALVE REPLACEMENT2.5-3.5 RECURRENT THROMBOSIS Laboratory - Chemistry and C hemistry - challengeon 11-28-2023 Albumin [Mass/Vol] 3.7 g/dL 3.4-5.0 [facility] ALP [Catalytic activity/Vol] 175 U/L 46-116 [facility] ALT [Catalytic activity/Vol] 24 U/L 16-63 [facility] AST [Catalytic activity/Vol] 24 U/L 15-37 [facility] Bilirubin [Mass/Vol] 1.1 mg/dL 0.2-1.0 [facility] Calcium [Mass/Vol] 9.4 mg/dL 8.5-10.1 [facility] Chloride [Moles/Vol] 102 mmol/L 98-107 [facility] CO2 [Moles/Vol] 28.7 mmol/L 21.0-32.0 [facility] Creatinine [Mass/Vol] 1.19 mg/dL 0.70-1.30 [facility] GFR/1.73 sq M.predicted MDRD (S/P/Bld) [Vol rate/Area] mL/min/{1.73_m2} >=60 [facility] Glucose [Mass/Vol] 114 mg/dL 74-106 [facility] Lactate [Moles/Vol] 1.4 mmol/L 0.4-2.0 [facility] Potassium [Moles/Vol] 3.9 mmol/L 3.5-5.1 [facility] Protein [Mass/Vol] 6.7 g/dL 6.4-8.2 [facility] Sodium [Moles/Vol] 140 mmol/L 136-145 [facility] Urea nitrogen [Mass/Vol] 23.0 mg/dL 7.0-18.0 [facility] Urea nitrogen/Creatinine [Mass ratio] 19.3 mg/mg [facility] Laboratory - Hematology and Cell countson 11-28-2023 Immature granulocytes/100 WBC (Bld) 0.4 % 0.0-0.5 [facility] LeukoReduced RBCon LeukoReduced RBC NOT AVAILABLE Normal [facility] Leukocytes [#/volume] correc bekah for nucleated erythrocytes in Blood by Automated counon 11-28-2023 WBC corrected for nucl RBC Auto (Bld) [#/Vol] 9.2 10 3/uL 4.0-11.0 [facility] Lymphocytes Auto (Bld) [#/Vo l]on 11-28-2023 Lymphocytes (Bld) [#/Vol] 1.4 10 3/uL 1.2-3.8 [facility] Lymphocytes/100 WBC Auto (Bl d)on 11-28-2023 Lymphocytes/100 WBC (Bld) 15.2 % 20.5-60.0 [facility] MCH Auto (RBC) [Entitic mass ]on 11-28-2023 MCH (RBC) [Entitic mass] 32.7 pg 25.9-34.0 [facility] MCHC Auto (RBC) [Mass/Vol]on 11-28-2023 MCHC (RBC) [Mass/Vol] 33.7 g/dL 29.9-35.2 [facility] MCV Auto (RBC) [Entitic vol] on 11-28-2023 MCV (RBC) [Entitic vol] 96.8 fL 80.0-94.0 [facility] Monocytes Auto (Bld) [#/Vol] on 11-28-2023 Monocytes (Bld) [#/Vol] 0.5 10 3/uL 0.3-0.8 [facility] Monocytes/100 WBC Auto (Bld) on 11-28-2023 Monocytes/100 WBC (Bld) 5.8 % 1.7-12.0 [facility] Neutrophils Auto (Bld) [#/Vo l]on 11-28-2023 Neutrophils (Bld) [#/Vol] 7.2 10 3/uL 1.4-6.5 [facility] Neutrophils/100 WBC Auto (Bl d)on 11-28-2023 Neutrophils/100 WBC (Bld) 77.8 % 43.0-75.0 [facility] No Panel Informationon 11-27 Eosinophils # (Auto) 0.0 10 3/uL 0.0-0.7 [facility] Immature Granulocyte # (Auto) 0.04 10 3/uL 0.00-0.03 [facility] Platelet mean volume Auto (B ld) [Entitic vol]on 11-28-2023 Platelet mean volume (Bld) [Entitic vol] 10.5 fL 9.5-13.5 [facility] Platelets Auto (Bld) [#/Vol] on 11-28-2023 Platelets (Bld) [#/Vol] 208 10 3/uL 150-450 [facility] Prothrombin time (PT)on PT Coag (PPP) [Time] 10.8 s 9.0-11.6 [facility] RBC Auto (Bld) [#/Vol]on RBC (Bld) [#/Vol] 3.43 10 6/uL 4.70-6.10 [facility] Serum or plasma albumin/glob ulin mass ratioon 11-28-2023 Albumin/Globulin [Mass ratio] 1.2 {ratio} [facility] Serum or plasma anion gap de terminationon 11-28-2023 Anion gap [Moles/Vol] 13.2 mmol/L [facility] Automated basophil %Ordered By: John Adam on 11-07-2023 Basophils/100 WBC (Bld) 0.4 % . [facility] Comment on above: Performed By: #### C BC, BMP #### [facility] [address] [place] [address] Automated basophil countOrde red By: John Adam on 11-07-2023 Basophils (Bld) [#/Vol] 0.0 10*3/uL 0.0-0.2 [facility] Comment on above: Result Comment: PERF ORMED BY: [place] [id number] PATHOLOGIST ASSEMBLER CHASSIS JAMISON ANDINO M.D. Performed By: #### C BC, BMP #### [address] Automated blood monocyte cou ntOrdered By: John Adam on 11-07-2023 Monocytes (Bld) [#/Vol] 0.5 10*3/uL 0.0-0.8 [facility] Comment on above: Performed By: #### C BC, BMP #### [address] Automated eosinophil %Ordere d By: John Adam on 11-07-2023 Eosinophils/100 WBC (Bld) 1.3 % . [facility] Comment on above: Performed By: #### C BC, BMP #### [address] Automated eosinophil countOr dered By: John Adam on 11-07-2023 Eosinophils (Bld) [#/Vol] 0.1 10*3/uL 0.0-0.45 [facility] Comment on above: Performed By: #### C BC, BMP #### [address] Automated monocyte %Ordered By: Jonh Adam on 11-07-2023 Monocytes/100 WBC (Bld) 7.0 % . [facility] Comment on above: Performed By: #### C BC, BMP #### [address] Automated neutrophil %Ordere d By: John Adam on 11-07-2023 Neutrophils/100 WBC (Bld) 70.6 % . [facility] Comment on above: Performed By: #### C BC, BMP #### [address] Basic Metabolic Panelon 10-28 GFR/1.73 sq M.predicted MDRD (S/P/Bld) [Vol rate/Area] mL/min/{1.73_m2} Normal [facility] Comment on above: Performed By: #### C BC, BMP #### [address] Calcium [Mass/volume] in Ser um or PlasmaOrdered By: John Adam on 11-07-2023 Calcium [Mass/Vol] 10.0 mg/dL 8.6-10.3 [facility] Comment on above: Result Comment: PERF ORMED BY: [place] [id number] PATHOLOGIST ASSEMBLER CHASSIS JAMISON ANDINO M.D. Performed By: #### C BC, BMP #### [address] Carbon dioxide, total [Moles /volume] in Serum or PlasmaOrdered By: John Adam on 11-07-2023 CO2 [Moles/Vol] 33.6 mmol/L 21.0-31.0 [facility] Comment on above: Performed By: #### C BC, BMP #### [place] [address] [place] Chloride [Moles/volume] in S jose or PlasmaOrdered By: John Adam on 11-07-2023 Chloride [Moles/Vol] 100 mmol/L 98-107 [facility] Comment on above: Performed By: #### C BC, BMP #### [address] Complete Blood Count Auto Di ffon 11-07-2023 Mean Corpuscular HGB Conc 33.9 g/dL Normal 32.5-35.6 [facility] Comment on above: Performed By: #### C BC, BMP #### [address] NRBC% 0.1 /100{WBC} Normal 0-0.5 [facility] Comment on above: Performed By: #### C BC, BMP #### [place] [address] [place] Creatinine [Mass/volume] in Serum or PlasmaOrdered By: John Adam on 11-07-2023 Creatinine [Mass/Vol] 1.05 mg/dL 0.70-1.30 [facility] Comment on above: Performed By: #### C ANAM, BMP #### [facility] [address] Erythrocyte distribution wid th [Ratio] by Automated countOrdered By: John Adam on 11-07-2023 Erythrocyte distribution width (RBC) [Ratio] 14.0 % 12.0-14.8 [facility] Comment on above: Performed By: #### C ANAM, BMP #### [facility] [address] Erythrocytes [#/volume] in B lood by Automated countOrdered By: John Adam on 11-07-2023 RBC (Bld) [#/Vol] 4.60 10*6/uL 3.90-5.60 [facility] Comment on above: Performed By: #### C ANAM, BMP #### [facility] [address] Glucose [Mass/volume] in Ser um or PlasmaOrdered By: John Adam on 11-07-2023 Glucose [Mass/Vol] 111 mg/dL 70-100 [facility] Comment on above: ADA recommended refe rence rangeRandom Glucose Reference Range is dependent on time and content of last meal. Glucose of more than 200 mg/dL in a nonstressed, ambulatory subject supports the diagnosis of Diabetes Mellitus. Result Comment: [place] om Glucose Reference Range is dependent on time and content of last meal. Glucose of more than 200 mg/dL in a nonstressed, ambulatory subject supports the diagnosis of Diabetes Mellitus. ADA recommended reference range Performed By: #### C ANAM, BMP #### [facility] [address] Hematocrit [Volume Fraction] of Blood by Automated countOrdered By: John Adam on 11-07-2023 Hematocrit (Bld) [Volume fraction] 44.3 % 38.8-50.0 [facility] Comment on above: Performed By: #### C BC, BMP #### [facility] [address] [place] [address] Hemoglobin [Mass/volume] in BloodOrdered By: John Adam on 11-07-2023 Hemoglobin (Bld) [Mass/Vol] 15.0 g/dL 13.0-17.0 [facility] Comment on above: Performed By: #### C BC, BMP #### [address] Leukocytes [#/volume] correc bekha for nucleated erythrocytes in Blood by Automated counOrdered By: John Adam on 11-07-2023 WBC corrected for nucl RBC Auto (Bld) [#/Vol] 7.5 10*3/uL 4.1-10.5 [facility] Leukocytes [#/volume] in Blo od by Automated countOrdered By: Jonh Adam on 11-07-2023 WBC (Bld) [#/Vol] 7.5 10*3/uL 4.1-10.5 [facility] Comment on above: Performed By: #### C ANAM, BMP #### [place] [address] [place] Lymphocytes [#/volume] in Bl ood by Automated countOrdered By: John Adam on 11-07-2023 Lymphocytes (Bld) [#/Vol] 1.6 10*3/uL 1.00-4.8 [facility] Comment on above: Performed By: #### C BC, BMP #### [facility] [address] [place] [address] [place] Lymphocytes/100 leukocytes i n Blood by Automated countOrdered By: John Adam on 11-07-2023 Lymphocytes/100 WBC (Bld) 20.7 % . [facility] Comment on above: Performed By: #### C BC, BMP #### [place] [address] [place] MCH [Entitic mass] by Automa bekah countOrdered By: John Adam on 11-07-2023 MCH (RBC) [Entitic mass] 32.7 pg 27.5-35.2 [facility] Comment on above: Performed By: #### C BC, BMP #### [facility] [address] [place] [address] MCHC Auto (RBC) [Mass/Vol]Or dered By: John Adam on 11-07-2023 MCHC (RBC) [Mass/Vol] 33.9 g/dL 32.5-35.6 [facility] MCV [Entitic volume] by Auto mated countOrdered By: John Adam on 11-07-2023 MCV (RBC) [Entitic vol] 96.3 fL 83.5-101 [facility] Comment on above: Performed By: #### C BC, BMP #### [facility] [address] [place] [address] Neutrophils [#/volume] in Bl ood by Automated countOrdered By: John Adam on 11-07-2023 Neutrophils (Bld) [#/Vol] 5.3 10*3/uL 1.8-7.7 [facility] Comment on above: Performed By: #### C BC, BMP #### [facility] [address] [place] [address] No Panel InformationOrdered By: John Adam on 11-07-2023 Estimated GFR (CKD-EPI) > 60.0 mL/Min [facility] Creatinine Clearance (Chem N/A [facility] Nucleated erythrocytes [Pres ence] in Blood by Automated countOrdered By: John Adam on 11-07-2023 Nucleated RBC Auto Ql (Bld) 0.1 /100{WBC} 0-0.5 [facility] Platelet mean volume [Entiti c volume] in Blood by Automated countOrdered By: John Adam on 11-07-2023 Platelet mean volume (Bld) [Entitic vol] 8.7 fL 6.6-10.1 [facility] Comment on above: Performed By: #### C BC, BMP #### [address] Platelets [#/volume] in Bloo d by Automated countOrdered By: John Adam on 11-07-2023 Platelets (Bld) [#/Vol] 228 10*3/uL 150-450 [facility] Comment on above: Performed By: #### C BC, BMP #### [address] Potassium [Moles/volume] in Serum or PlasmaOrdered By: John Adam on 11-07-2023 Potassium [Moles/Vol] 4.2 mmol/L 3.5-5.1 [facility] Comment on above: Performed By: #### C BC, BMP #### [facility] [address] [place] [address] Serum or plasma anion gap de terminationOrdered By: John Adam on 11-07-2023 Anion gap [Moles/Vol] 10.6 mmol/L 6.0-15.0 [facility] Comment on above: Performed By: #### C BC, BMP #### [address] Sodium [Moles/volume] in Ser um or PlasmaOrdered By: John Adam on 11-07-2023 Sodium [Moles/Vol] 140 mmol/L 136-145 [facility] Comment on above: Performed By: #### C BC, BMP #### [address] Urea nitrogen [Mass/volume] in Serum or PlasmaOrdered By: John Adam on 11-07-2023 Urea nitrogen [Mass/Vol] 21 mg/dL 7-25 [facility] Comment on above: Performed By: #### C BC, BMP #### [address] ECG 12 lead ECGon 10-24-2023 ECG 12 lead ECG [facility] [place] [address] [place] [address] Electrocardiograph Report Signed Patient: Rishi Babcock MR#: [id number] : 1940 Acct:[id number] Age/Sex: 83 / M ADM Date: 10/24/23 Loc: EKGCARDIO Room: Type: [facility] Attending Dr: Sushil Goodman MD Ordering Provider: Sushil Goomdan MD Date of Service: 10/24/23 ECG/ECG 12 lead ECG: I48.91 - Unspecified atrial fibrillation Copies to: Test Reason : Blood Pressure : / mmHG Vent. Rate : 076 BPM Atrial Rate : 076 BPM P-R Int : 238 ms QRS Dur : 162 ms QT Int : 448 ms P-R-T Axes : 074 083 048 degrees QTc Int : 504 ms Sinus rhythm with 1st degree AV block Right bundle branch block Abnormal ECG No previous ECGs available Confirmed by Sushil Goodman ([id number]) on 11/07/2023 5:45:22 PM Referred By: Electronically Signed By:Sushil Goodman Transcribed By: MUS Signed By Sushil Goodman MD 11/07/23 2526 Normal [facility] XR cerv spine AP/LAT/FLX/EXT on 10-11-2023 XR cerv spine AP/LAT/FLX/EXT [place] [address] XRay Report Signed Patient: Rishi Babcock MR#: [id number] : 1940 Acct:[id number] Age/Sex: 83 / M ADM Date: 10/11/23 Loc: XD Room: Type: [facility] Attending Dr: Lesvia BUTLER Copies to: LUKE Aaron Ordering Provider: LUKE Aaron Date of Service: 10/11/23 XR/XR cerv spine AP/LAT/FLX/EXT: 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 XR cerv spine AP/LAT/FLX/EXT 10/11/2023 12:38 PM SIGNS AND SYMPTOMS: Low back pain, bilateral foot numbness and hand numbness PROTOCOLS: Frontal and lateral radiograph of the cervical spine COMPARISON: 07/20/2020 FINDINGS: The bones are in anatomic alignment. There is preservation of the vertebral body. There is anterior and intervertebral fusion from C4 through C7. Facet hypertrophy is also present throughout. Flexion and extension views show no pathologic movement. There is no fracture or destructive lesion. XR/XR cerv spine AP/LAT/FLX/EXT IMPRESSION: Unchanged anterior and intervertebral fusion from C4 through C7. No pathologic movement. Impression dictated by: Waylon Whitfield M.D.10/11/2023 4:43 PM Dictation Location: [place] [address] Transcribed By: SYED 10/11/23 164 Dictated By: Waylon Whitfield II, MD 10/11/231640 Signed By: 10/11/231642 Normal [facility] XR lumbar spine 6V w bending on 10-11-2023 XR lumbar spine 6V w bending [facility] [place] [address] [place] [address] XRay Report Signed Patient: Rishi Babcock MR#: [id number] : 1940 Acct:[id number] Age/Sex: 83 / M ADM Date: 10/11/23 Loc: XD Room: Type: [facility] Attending Dr: Lesvia BUTLER Copies to: LUKE Aaron Ordering Provider: LUKE Aaron Date of Service: 10/11/23 XR/XR lumbar spine 6V w bending: M43.16 - Spondylolisthesis, lumbar region XR lumbar spine 6V w bending 10/11/2023 12:38 PM SIGNS AND SYMPTOMS: Low back pain with bilateral foot numbness PROTOCOLS: Frontal, lateral, and flexion-extension views of the lumbar spine COMPARISON: 08/17/2021 FINDINGS: 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 There is 9 mm of anterolisthesis of L5 upon S1 which is unchanged. There is moderate severe disc height loss with vacuum disc phenomena and endplate sclerosis at L1-L2, L2-L3, L3-4, L4-5, and L5-S1. There is accompanying anterior osteophyte formation. Facet degenerative changes are present throughout.. Degenerative changes are noted in the sacroiliac joints. 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 There is 9 mm of anterolisthesis of L5 upon S1 which is unchanged. Significant multifocal degenerative changes redemonstrated. No fracture. Impression dictated by: Waylon Whitfield M.D.10/11/2023 4:54 PM Dictation Location: RADIO--07 Transcribed By: PWS 10/11/231653 Dictated By: Waylon Whitfield II, MD 10/11/231651 Signed By: 10/11/231653 [facility] [place] 02-26-2023 L ------ Specimen: [id number] Received: 02/26/23 Status: RONALD Peralta Num: [id number] Spec Type: Surgical Subm Dr: Gene Nguyễn MD Tissues: A Duodenum - Biopsy (DUODENAL BX) B GASTRIC FOR HP (GASTRIC BX HP) Procedures: CORKY/Elder, Gross/Micro L4/3, H PYLORI Age/ Patient Sex Location Account Attending Physician Rishi Babcock 82/M [id number] Gene Nguyễn MD SPEC NUM: [id number] RECD: 02/26/23 STATUS: RONALD PERALTA NUM: [id number] LYNNE: 02/26/23- [facility] DR: Gene Nguyễn MD ENTERED: 02/26/23 [facility] DR: SPEC TYPE: Surgical DEPT: S ORDERED: HE/4, Gross/Micro L4/3, H PYLORI ORDERED: HE/4, Gross/Micro L4/3, H PYLORI Pathological Diagnosis A. Duodenum, biopsy: - Small intestinal mucosa within normal limits B. Stomach, biopsy: - Gastric fundic gland mucosa within normal limits - Negative for intestinal metaplasia or dysplasia - Negative for H. pylori (immunohistochemical staining) Clinical Information History of colon polyps, family history of colon cancer, iron deficiency anemia, rule out celiac, rule out H. pylori Gross Description A. Received in formalin labeled with the patient's name, date of and duodenal biopsy is one schmitt tissue measuring 0.5 x 0.3 x 0.2 cm. Entirely submitted in one cassette labeled A1. B. Received in formalin labeled with the patient's name, date of and gastric biopsy are two schmitt tissues averaging 0.4 x 0.2 x 0.2 cm. Entirely submitted in one cassette Specimen: [id number] Received: 02/26/23 Status: RONALD Peralta Num: [id number] Spec Type: Surgical Subm Dr: Gene Nguyễn MD Tissues: A Duodenum - Biopsy (DUODENAL BX) B GASTRIC FOR HP (GASTRIC BX HP) Procedures: HE/4, Gross/Micro L4/3, H PYLORI Patient: Rishi Babcock [id number] (Continued) Specimen: [id number] Received: 02/26/23 (Continued) Gross Description (Continued) Signed (signature on file) Darshan Fall MD 03/01/23 1727 Specimen: [id number] Received: 02/26/23 Status: RONALD Peralta Num: [id number] Spec Type: Surgical Subm Dr: Gene Nguyễn MD Tissues: A Duodenum - Biopsy (DUODENAL BX) B GASTRIC FOR HP (GASTRIC BX HP) Procedures: HE/4, Gross/Micro L4/3, H PYLORI Patient: Rishi Babcock [id number] (Continued) Specimen: [id number] Received: 02/26/23 (Continued) Gross Description (Continued) labeled B1. Microscopic Description A. Two H E slides reviewed. The microscopic examination confirms the diagnosis. B. Two H E slides reviewed. The microscopic examination confirms the diagnosis. CPT Codes 10011 x 2 Specimen: [id number] Received: 02/26/23 Status: RONALD Peralta Num: [id number] Spec Type: Surgical Subm Dr: Gene Nguyễn MD Tissues: A Duodenum - Biopsy (DUODENAL BX) B GASTRIC FOR HP (GASTRIC BX HP) Procedures: HE/4, Gross/Micro L4/3, H PYLORI Patient: Rishi Babcock [id number] (Continued) Signed (signature on file) Darshan Fall MD 03/01/23 1727 Normal [facility] FOLATE, RBCon 10-27-2022 Folate, Hemolysate 293.0 ng/mL Normal Not Estab. [facility] Comment on above: Performed By: #### C BC #### [facility] [address] [place] [address] Dr. Haile Omalley Folate, RBC 731 ng/mL Normal >498 [facility] Comment on above: Performed By: #### C BC #### [facility] [address] [place] [address] Dr. Haile Omalley Hematocrit (Bld) [Volume fraction] 40.1 % Normal 37.5-51.0 [facility] Comment on above: Performed By: #### C BC #### [facility] [address] [place] [address] Dr. Haile Omalley CBC AUTO DIFFon 10-25-2022 BASO # 0.0 103/ul Normal 0.0-0.1 [facility] Comment on above: Performed By: #### C BC #### [facility] [address] [place] [address] Dr. Haile Omalley Basophils/100 WBC (Bld) 0.3 % Normal 0.2-2.0 [facility] Comment on above: Performed By: #### C BC #### [facility] [address] [place] [address] Dr. Haile Omalley EO # 0.1 103/ul Normal 0.0-0.7 [facility] Comment on above: Performed By: #### C BC #### [facility] [address] [place] [address] Dr. Haile Omalley Eosinophils/100 WBC (Bld) 1.4 % Normal 0.9-7.0 [facility] Comment on above: Performed By: #### C BC #### [facility] [address] [place] [address] Dr. Haile Omalley Erythrocyte distribution width (RBC) [Ratio] 13.3 % Normal 11.0-15.0 [facility] Comment on above: Performed By: #### C BC #### [facility] [address] [place] [address] Dr. Haile Omalley Hematocrit (Bld) [Volume fraction] 40.8 % Critically low 42.0-54.0 [facility] Comment on above: Performed By: #### C BC #### [facility] [address] [place] [address] Dr. Haile Omalley Hemoglobin (Bld) [Mass/Vol] 13.8 g/dL Critically low 14.0-18.0 [facility] Comment on above: Performed By: #### C BC #### [facility] [address] [place] [address] Dr. Haile Omalley IG # 0.04 10e3/ul Critically high 0.00-0.03 [facility] Comment on above: Performed By: #### C BC #### [facility] [address] [place] [address] Dr. Haile Omalley IG % 0.5 % Normal 0.0-0.5 [facility] Comment on above: Performed By: #### C BC #### [facility] [address] [place] [address] Dr. Haile Omalley LYMPH # 1.4 103/ul Normal 1.2-3.8 [facility] Comment on above: Performed By: #### C BC #### [facility] [address] [place] [address] Dr. Haile Omalley Lymphocytes/100 WBC (Bld) 16.4 % Critically low 20.5-60.0 [facility] Comment on above: Performed By: #### C BC #### [facility] [address] [place] [address] Dr. Haile Omalley MANUAL DIFF REQ NO Normal [facility] Comment on above: Performed By: #### C BC #### [facility] [address] [place] [address] Dr. Haile Omalley MCH (RBC) [Entitic mass] 32.0 pg Normal 25.9-34.0 [facility] Comment on above: Performed By: #### C BC #### [facility] [address] [place] [address] Dr. Haile Omalley MCHC (RBC) [Mass/Vol] 33.8 g/dL Normal 29.9-35.2 [facility] Comment on above: Performed By: #### C BC #### [facility] [address] [place] [address] Dr. Haile Omalley MCV (RBC) [Entitic vol] 94.7 fL Critically high 80.0-94.0 [facility] Comment on above: Performed By: #### C BC #### [facility] [address] [place] [address] Dr. Haile Omalley MONO # 0.8 103/ul Normal 0.3-0.8 [facility] Comment on above: Performed By: #### C BC #### [facility] [address] [place] [address] Dr. Haile Omalley Monocytes/100 WBC (Bld) 9.6 % Normal 1.7-12.0 [facility] Comment on above: Performed By: #### C BC #### [facility] [address] [place] [address] Dr. Haile Omalley NEUT # 6.2 103/ul Normal 1.4-6.5 [facility] Comment on above: Performed By: #### C BC #### [facility] [address] [place] [address] Dr. Haile Omalley Neutrophils/100 WBC (Bld) 71.8 % Normal 43.0-75.0 [facility] Comment on above: Performed By: #### C BC #### [facility] [address] [place] [address] Dr. Haile Omalley Platelet mean volume (Bld) [Entitic vol] 10.6 fL Normal 9.5-13.5 [facility] Comment on above: Performed By: #### C BC #### [facility] [address] [place] [address] Dr. Haile Omalley PLT 212 103/ul Normal 150-450 [facility] Comment on above: Performed By: #### C BC #### [facility] [address] [place] [address] Dr. Haile Omalley RBC 4.31 106/ul Critically low 4.70-6.10 [facility] Comment on above: Performed By: #### C BC #### [facility] [address] [place] [address] Dr. Haile Omalley WBC 8.6 103/ul Normal 4.0-11.0 [facility] Comment on above: Performed By: #### C BC #### [facility] [address] [place] [address] Dr. Haile Omalley FERRITINon 10-25-2022 Ferritin [Mass/Vol] 395.0 ng/mL Critically high 26.0-388.0 [facility] Comment on above: Performed By: #### C BC #### [facility] [address] [place] [address] Dr. Haile Omalley IRON AND TIBCon 10-25-2022 % SATURATION 11.7 % Normal [facility] Comment on above: Performed By: #### C BC #### [facility] [address] [place] [address] Dr. Haile Omalley Iron [Mass/Vol] 31.0 ug/dL Critically low 65.0-175.0 [facility] Comment on above: Performed By: #### C BC #### [facility] [address] [place] [address] Dr. Haile Omalley TIBC DIRECT 264.0 ug/dL Normal 250.0-450.0 [facility] Comment on above: Performed By: #### C BC #### [facility] [address] [place] [address] Dr. Haile Omalley VITAMIN B12on 10-25-2022 Cobalamin (Vitamin B12) [Mass/Vol] 531.0 pg/mL Normal 193.0-986.0 [facility] Comment on above: Performed By: #### C BC #### [facility] [address] [place] [address] Dr. Haile Omalley UA RANDOM W/MICROSCOPICon BACTERIA NONE SEEN Normal NONE SEEN [facility] Comment on above: Performed By: #### U AMIC #### [facility] [address] [place] [address] Dr. Haile Omalley Bilirubin Ql (U) Negative Normal NEGATIVE [facility] Comment on above: Performed By: #### U AMIC #### [facility] [address] [place] [address] Dr. Haiel Omalley CAST NONE SEEN Normal NONE SEEN [facility] Comment on above: Performed By: #### U AMIC #### [facility] [address] [place] [address] Dr. Haile Omalley Clarity (U) CLEAR Normal CLEAR [facility] Comment on above: Performed By: #### U AMIC #### [facility] [address] [place] [address] Dr. Haile Omalley Color (U) YELLOW Normal YELLOW [facility] Comment on above: Performed By: #### U AMIC #### [facility] [address] [place] [address] Dr. Haile Omalley Crystals LM Nom (Urine sed) NONE SEEN Normal NONE SEEN [facility] Comment on above: Performed By: #### U AMIC #### [facility] [address] [place] [address] Dr. Haile Omalley Epithelial cells LM Ql (Urine sed) RARE Normal NONE SEEN /RARE [facility] Comment on above: Performed By: #### U AMIC #### [facility] [address] [place] [address] Dr. Haile Omalley Glucose Ql (U) Negative Normal NEGATIVE [facility] Comment on above: Performed By: #### U AMIC #### [facility] [address] [place] [address] Dr. Haile Omalley Hemoglobin Ql (U) Negative Normal NEGATIVE [facility] Comment on above: Performed By: #### U AMIC #### [facility] [address] [place] [address] [address] Haile Omalley Ketones Ql (U) Negative Normal NEGATIVE [facility] Comment on above: Performed By: #### U AMIC #### [facility] [address] [place] [address] [address] Haile Omalley LEUKOCYTES Negative Normal NEGATIVE [facility] Comment on above: Performed By: #### U AMIC #### [facility] [address] [place] [address] Dr. Haile Omalley MUCOUS NONE SEEN Normal NONE SEEN [facility] Comment on above: Performed By: #### U AMIC #### [facility] [address] [place] [address] Dr. Haile Omalley Nitrite Ql (U) Negative Normal NEGATIVE [facility] Comment on above: Performed By: #### U AMIC #### [facility] [address] [place] [address] Dr. Haile Omalley pH (U) 8.0 [pH] Normal 5-9 [facility] Comment on above: Performed By: #### U AMIC #### [facility] [address] [place] [address] Dr. Haile Omalley RBC NONE SEEN Abnormal 0-2 [facility] Comment on above: Performed By: #### U AMIC #### [facility] [address] [place] [address] [address] Haile Omalley SPEC GRAVITY 1.015 Normal 1.005-<=1.0 25 [facility] Comment on above: Performed By: #### U AMIC #### [facility] [address] [place] [address] Dr. Haile Omalley UA PROTEIN Negative Normal NEGATIVE/ TRACE [facility] Comment on above: Performed By: #### U AMIC #### [facility] [address] [place] [address] Dr. Haile Omalley Urobilinogen Qn (U) 4 {Michel'U}/dL Abnormal 0.2 - 1.0 [facility] Comment on above: Performed By: #### U AMIC #### [facility] [address] [place] [address] Dr. Haile Omalley WBC NONE SEEN Normal NONE SEEN [facility] Comment on above: Performed By: #### U AMIC #### [facility] [address] [place] [address] Dr. Haile Omalley CBC AUTO DIFFon 07-18-2022 BASO # 0.0 103/ul Normal 0.0-0.1 [facility] Comment on above: Performed By: #### C BC #### [facility] [address] [place] [address] Dr. Haile Omalley Basophils/100 WBC (Bld) 0.3 % Normal 0.2-2.0 [facility] Comment on above: Performed By: #### C BC #### [facility] [address] [place] [address] Dr. Haile Omalley EO # 0.1 103/ul Normal 0.0-0.7 [facility] Comment on above: Performed By: #### C BC #### [facility] [address] [place] [address] Dr. Haile Omalley Eosinophils/100 WBC (Bld) 1.0 % Normal 0.9-7.0 [facility] Comment on above: Performed By: #### C BC #### [facility] [address] [place] [address] Dr. Haile Omalley Erythrocyte distribution width (RBC) [Ratio] 13.3 % Normal 11.0-15.0 [facility] Comment on above: Performed By: #### C BC #### [facility] [address] [place] [address] Dr. Haile Omalley Hematocrit (Bld) [Volume fraction] 40.0 % Critically low 42.0-54.0 [facility] Comment on above: Performed By: #### C BC #### [facility] [address] [place] [address] Dr. Haile Omalley Hemoglobin (Bld) [Mass/Vol] 13.5 g/dL Critically low 14.0-18.0 [facility] Comment on above: Performed By: #### C BC #### [facility] [address] [place] [address] Dr. Haile Omalley IG # 0.02 10e3/ul Normal 0.00-0.03 [facility] Comment on above: Performed By: #### C BC #### [facility] [address] [place] [address] Dr. Haile Omalley IG % 0.3 % Normal 0.0-0.5 [facility] Comment on above: Performed By: #### C BC #### [facility] [address] [place] [address] Dr. Haile Omalley LYMPH # 1.5 103/ul Normal 1.2-3.8 [facility] Comment on above: Performed By: #### C BC #### [facility] [address] [place] [address] Dr. Haile Omalley Lymphocytes/100 WBC (Bld) 22.1 % Normal 20.5-60.0 [facility] Comment on above: Performed By: #### C BC #### [facility] [address] [place] [address] Dr. Haile Omalley MANUAL DIFF REQ NO Normal [facility] Comment on above: Performed By: #### C BC #### [facility] [address] [place] [address] Dr. Haile Omalley MCH (RBC) [Entitic mass] 33.0 pg Normal 25.9-34.0 [facility] Comment on above: Performed By: #### C BC #### [facility] [address] [place] [address] Dr. Haile Omalley MCHC (RBC) [Mass/Vol] 33.8 g/dL Normal 29.9-35.2 [facility] Comment on above: Performed By: #### C BC #### [facility] [id number] Haile Omalley MCV (RBC) [Entitic vol] 97.8 fL Critically high 80.0-94.0 [facility] Comment on above: Performed By: #### C BC #### [facility] [address] [place] [address] [address] Haile Omalley MONO # 0.7 103/ul Normal 0.3-0.8 [facility] Comment on above: Performed By: #### C BC #### [facility] [address] [address] [address] Haile Omalley Monocytes/100 WBC (Bld) 10.6 % Normal 1.7-12.0 [facility] Comment on above: Performed By: #### C BC #### [facility] [address] [place] [address] Dr. Haile Omalley NEUT # 4.6 103/ul Normal 1.4-6.5 [facility] Comment on above: Performed By: #### C BC #### [facility] [address] [place] [address] Dr. Haile Omalley Neutrophils/100 WBC (Bld) 65.7 % Normal 43.0-75.0 [facility] Comment on above: Performed By: #### C BC #### [facility] [address] [address] [address] Haile Omalley Platelet mean volume (Bld) [Entitic vol] 10.5 fL Normal 9.5-13.5 [facility] Comment on above: Performed By: #### C BC #### [facility] [address] [place] [address] Dr. Haile Omalley PLT 177 103/ul Normal 150-450 [facility] Comment on above: Performed By: #### C BC #### [facility] [id number] Haile Omalley RBC 4.09 106/ul Critically low 4.70-6.10 [facility] Comment on above: Performed By: #### C BC #### [facility] [address] [place] [address] Dr. Haile Omalley WBC 7.0 103/ul Normal 4.0-11.0 [facility] Comment on above: Performed By: #### C BC #### [facility] [address] [address] [address] Haile Omalley PROF CHEM 8 (BAS METB)on Anion gap [Moles/Vol] 6.9 mmol/L Normal [facility] Comment on above: Performed By: #### B MP #### [facility] [address] [place] [address] Dr. Haile Omalley Calcium [Mass/Vol] 9.0 mg/dL Normal 8.5-10.1 [facility] Comment on above: Performed By: #### B MP #### [facility] [address] [place] [address] Dr. Haile Omalley Chloride [Moles/Vol] 99 mmol/L Normal 98-107 [facility] Comment on above: Performed By: #### B MP #### [facility] [address] [place] [address] Dr. Haile Omalley CO2 [Moles/Vol] 35.8 mmol/L Critically high 21.0-32.0 [facility] Comment on above: Performed By: #### B MP #### [facility] [address] [place] [address] Dr. Haile Omalley Creatinine [Mass/Vol] 1.09 mg/dL Normal 0.70-1.30 [facility] Comment on above: Performed By: #### B MP #### [facility] [address] [place] [address] Dr. Haile Omalley EGFR-AF BERMUDIAN >60 Normal >=60 [facility] Comment on above: Performed By: #### B MP #### [facility] [address] [place] [address] Dr. Haile Omalley EGFR-NON AF BERMUDIAN >60 Normal >=60 [facility] Comment on above: Performed By: #### B MP #### [facility] [address] [place] [address] Dr. Haile Omalley Glucose [Mass/Vol] 114 mg/dL Critically high 74-106 [facility] Comment on above: Performed By: #### B MP #### [facility] [address] [address] [address] Haile Omalley Potassium [Moles/Vol] 3.7 mmol/L Normal 3.5-5.1 [facility] Comment on above: Performed By: #### B MP #### [facility] [address] [address] [address] Haile Omalley Sodium [Moles/Vol] 138 mmol/L Normal 136-145 [facility] Comment on above: Performed By: #### B MP #### [facility] [address] [place] [address] Dr. Haile Omalley Urea nitrogen [Mass/Vol] 27.0 mg/dL Critically high 7.0-18.0 [facility] Comment on above: Performed By: #### B MP #### [facility] [address] [place] [address] Dr. Haile Omalley Urea nitrogen/Creatinine [Mass ratio] 24.8 mg/mg Normal [facility] Comment on above: Performed By: #### B MP #### [facility] [address] [place] [address] Dr. Haile Omalley [facility] EXAMINATION: MRI BRA IN [facility], 12/27/2021 2:01 PM EDT HISTORY: Paresthesia , balance problems, abnormal gait COMPARISON: None. TECHNIQUE: MRI of the brain was performed without IV contrast. FINDINGS: CEREBRUM: No edema, hemorrhage, mass, acute infarction, or inappropriate atrophy. Moderate scattered hyperintense foci are present, typical for a patient of this age, most commonly caused by small vessel ischemic changes. CEREBELLUM: No edema, hemorrhage, mass, acute infarction, or inappropriate atrophy. BRAINSTEM: No edema, hemorrhage, mass, acute infarction, or inappropriate atrophy. CSF SPACES: Ventricles, cisterns, and sulci are appropriate for age. No hydrocephalus, subarachnoid hemorrhage, or mass. SKULL: No mass or other significant visible lesion. SINUSES: Limited views demonstrate no significant mucosal thickening or fluid. ORBITS: Limited views are unremarkable. OTHER: Negative. IMPRESSION: Moderate scattered white matter disease, nonspecific. Chronic small vessel ischemic changes are favored No acute infarct Electronically authenticated by: FRANKO JACOBS Date: 2021-12-27 18:17 Normal [facility] METHYLMALONIC ACID (MMA)on 0 12-23-2021 Methylmalonic Acid, Serum 282 nmol/L Normal 0-378 [facility] Comment on above: Performed By: #### M MA2 #### [facility] [address] [place] [address] Dr. Haile Omalley PROTEIN ELECTROPHERESISon Albumin [Mass/Vol] 4.0 g/dL Normal 2.9-4.4 [facility] Comment on above: Performed By: #### C BC #### [facility] [address] [place] [address] Dr. Haile Omalley Albumin/Globulin [Mass ratio] 1.5 {ratio} Normal 0.7-1.7 [facility] Comment on above: Performed By: #### C BC #### [facility] [address] [place] [address] Dr. Haile Omalley Bnqfn-9-Gxxlocqe 0.2 g/dL Normal 0.0-0.4 [facility] Comment on above: Performed By: #### C BC #### [facility] [address] [place] [address] Dr. Haile Omalley Ujiib-4-Dommjnzx 0.8 g/dL Normal 0.4-1.0 [facility] Comment on above: Performed By: #### C BC #### [facility] [address] [place] [address] Dr. Haile Omalley Beta Globulin 1.0 g/dL Normal 0.7-1.3 [facility] Comment on above: Performed By: #### C BC #### [facility] [address] [place] [address] Dr. Haile Omalley Gamma Globulin 0.6 g/dL Normal 0.4-1.8 [facility] Comment on above: Performed By: #### C BC #### [facility] [address] [place] [address] Dr. Haile Omalley Globulin (S) [Mass/Vol] 2.6 g/dL Normal 2.2-3.9 [facility] Comment on above: Performed By: #### C BC #### [facility] [address] [place] [address] Dr. Haile Omalley M-Danie Not Observed Normal Not Observed [facility] Comment on above: Performed By: #### C BC #### [facility] [address] [place] [address] Dr. Haile Omalley PDF . Normal [facility] Comment on above: Performed By: #### C BC #### [facility] [address] [place] [address] Dr. Haile Omalley Please note: Comment Normal [facility] Comment on above: Result Comment: Prot ein electrophoresis scan will follow via computer, mail, or shipping track supervisor delivery. Performed By: #### C BC #### [facility] [address] [place] [address] Dr. Haile Omalley Protein [Mass/Vol] 6.6 g/dL Normal 6.0-8.5 [facility] Comment on above: Performed By: #### C BC #### [facility] [address] [place] [address] Dr. Haile Omalley [facility] PROFILEon 12-17-2021 Anti-Centromere B Antibodies <0.2 Normal 0.0-0.9 [facility] Comment on above: Performed By: #### A NAPROF #### [facility] [address] [place] [address] Dr. Haile Omalley Anti-DNA (DS) Ab Qn 1 IU/mL Normal 0-9 [facility] Comment on above: Result Comment: Nega tive <5 Equivocal 5 - 9 Positive >9 Performed By: #### A NAPROF #### [facility] [address] [place] [address] Dr. Haile Omalley Anti-Avani-1 <0.2 Normal 0.0-0.9 [facility] Comment on above: Performed By: #### A NAPROF #### [facility] [address] [place] [address] Dr. Haile Omalley Antichromatin Antibodies <0.2 Normal 0.0-0.9 [facility] Comment on above: Performed By: #### A MELANIE #### [facility] [address] [address] [address] Haile Omalley ANTIRIBOSOMAL P AB <0.2 Normal 0.0-0.9 [facility] Comment on above: Performed By: #### A MELANIE #### [facility] [address] [place] [address] Dr. Haile Omalley Antiscleroderma-70 Antibodies <0.2 Normal 0.0-0.9 [facility] Comment on above: Performed By: #### A MELANIE #### [facility] [address] [place] [address] Dr. Haile Omalley COMMENT Comment Normal [facility] Comment on above: Result Comment: Auto antibody Disease Association Condition Frequency Antinuclear Antibody, SLE, mixed connective Direct (GILDA-D) tissue diseases dsDNA SLE 40 - 60% Chromatin Drug induced SLE 90% SLE 48 - 97% SSA (Ro) SLE 25 - 35% Sjogren's Syndrome 40 - 70% Lupus 100% SSB (La) SLE 10% Sjogren's Syndrome 30% Sm (anti-Ramirez) SLE 15 - 30% PIZZA DRIVER Mixed Connective Tissue Disease 95% (U1 nRNP, SLE 30 - 50% anti-ribonucleoprotein) Polymyositis and/or Dermatomyositis 20% Scl-70 (antiDNA Scleroderma (diffuse) 20 - 35% topoisomerase) Crest 13% Avani-1 Polymyositis and/or Dermatomyositis 20 - 40% Centromere B Scleroderma - Crest variant 80% Ribosomal P SLE 10 - 20% Performed By: #### A NAPROF #### [facility] [address] [place] [address] Dr. Haile Omalley PIZZA DRIVER Antibodies <0.2 Normal 0.0-0.9 [facility] Comment on above: Performed By: #### A NAPROF #### [facility] [address] [place] [address] Dr. Haile Omalley Sjogrcriss's Anti-SS-A <0.2 Normal 0.0-0.9 [facility] Comment on above: Performed By: #### A NAPROF #### [facility] [address] [place] [address] Dr. Haile Omalley Sjogrcirss'gavin Anti-SS-B <0.2 Normal 0.0-0.9 [facility] Comment on above: Performed By: #### A NAPROF #### [facility] [address] [place] [address] Dr. Haile Omalley Ramirez Antibodies <0.2 Normal 0.0-0.9 [facility] Comment on above: Performed By: #### A NAPROF #### [facility] [address] [place] [address] Dr. Haile Omalley Ramirez/PIZZA DRIVER Antibodies <0.2 Normal 0.0-0.9 [facility] Comment on above: Performed By: #### A NAPROF #### [facility] [address] [place] [address] Dr. Haile Omalley CRPon 12-16-2021 CRP [Mass/Vol] mg/L Normal <=1.0 [facility] Comment on above: Performed By: #### C BC #### [facility] [address] [place] [address] Dr. Haile Omalley GLYCOHEMOGLOBIN A1Con 2021 ADA RECOMMENDATION SEE BELOW Normal [facility] Comment on above: Result Comment: ADA RECOMMENDED LIMIT 4.0 - 6.0 ADA THERAPEUTIC TARGET < 7.0 ACTION SUGGESTED > 7.0 Performed By: #### A 1C #### [facility] [address] [place] [address] Dr. Haile Omalley Glucose [Mass/Vol] 105 mg/dL Normal [facility] Comment on above: Performed By: #### A 1C #### [facility] [address] [place] [address] Dr. Haile Omalley HbA1c (Bld) [Mass fraction] 5.3 % Normal 4.5-6.2 [facility] Comment on above: Performed By: #### A 1C #### [facility] [address] [place] [address] Dr. Haile Omalley PROF 14(COMP METB)on 022 Albumin [Mass/Vol] 4.0 g/dL Normal 3.4-5.0 [facility] Comment on above: Performed By: #### T SH, CRP, CMP #### [facility] [address] [place] [address] Dr. Haile Omalley Albumin/Globulin [Mass ratio] 1.3 {ratio} Normal [facility] Comment on above: Performed By: #### T SH, CRP, CMP #### [facility] [address] [place] [address] Dr. Haile Omalley ALP [Catalytic activity/Vol] 172 U/L Critically high 46-116 [facility] Comment on above: Performed By: #### T SH, CRP, CMP #### [facility] [address] [place] [address] Dr. Haile Omalley ALT [Catalytic activity/Vol] 25 U/L Normal 16-63 [facility] Comment on above: Performed By: #### T SH, CRP, CMP #### [facility] [address] [place] [address] Dr. Haile Omalley Anion gap [Moles/Vol] 13.1 mmol/L Normal [facility] Comment on above: Performed By: #### T SH, CRP, CMP #### [facility] [address] [place] [address] Dr. Haile Omalley AST [Catalytic activity/Vol] 21 U/L Normal 15-37 [facility] Comment on above: Performed By: #### T SH, CRP, CMP #### [facility] [address] [address] [address] Haile Omalley Bilirubin [Mass/Vol] 0.8 mg/dL Normal 0.2-1.0 [facility] Comment on above: Performed By: #### T SH, CRP, CMP #### [facility] [address] [place] [address] Dr. Haile Omalley Calcium [Mass/Vol] 9.5 mg/dL Normal 8.5-10.1 [facility] Comment on above: Performed By: #### T SH, CRP, CMP #### [facility] [address] [place] [address] Dr. Haile Omalley Chloride [Moles/Vol] 104 mmol/L Normal 98-107 [facility] Comment on above: Performed By: #### T SH, CRP, CMP #### [facility] [address] [place] [address] Dr. Haile Omalley CO2 [Moles/Vol] 31.5 mmol/L Normal 21.0-32.0 [facility] Comment on above: Performed By: #### T SH, CRP, CMP #### [facility] [address] [place] [address] Dr. Haile Omalley Creatinine [Mass/Vol] 1.14 mg/dL Normal 0.70-1.30 [facility] Comment on above: Performed By: #### T SH, CRP, CMP #### [facility] [address] [place] [address] Dr. Haile Omalley EGFR-AF BERMUDIAN >60 Normal >=60 [facility] Comment on above: Performed By: #### T SH, CRP, CMP #### [facility] [address] [place] [address] Dr. Haile Omalley EGFR-NON AF BERMUDIAN >60 Normal >=60 [facility] Comment on above: Performed By: #### T SH, CRP, CMP #### [facility] [address] [place] [address] Dr. Haile Omalley Globulin (S) [Mass/Vol] 3.1 g/dL Normal [facility] Comment on above: Performed By: #### T SH, CRP, CMP #### [facility] [address] [address] [address] Haile Omalley Glucose [Mass/Vol] 106 mg/dL Normal 74-106 [facility] Comment on above: Performed By: #### T SH, CRP, CMP #### [facility] [address] [place] [address] Dr. Haile Omalley Potassium [Moles/Vol] 4.6 mmol/L Normal 3.5-5.1 [facility] Comment on above: Performed By: #### T SH, CRP, CMP #### [facility] [address] [place] [address] Dr. Haile Omalley Protein [Mass/Vol] 7.1 g/dL Normal 6.4-8.2 [facility] Comment on above: Performed By: #### T SH, CRP, CMP #### [facility] [address] [place] [address] Dr. Haile Omalley Sodium [Moles/Vol] 144 mmol/L Normal 136-145 [facility] Comment on above: Performed By: #### T SH, CRP, CMP #### [facility] [address] [place] [address] Dr. Haile Omalley Urea nitrogen [Mass/Vol] 30.0 mg/dL Critically high 7.0-18.0 [facility] Comment on above: Performed By: #### T SH, CRP, CMP #### [facility] [address] [place] [address] Dr. Haile Omalley Urea nitrogen/Creatinine [Mass ratio] 26.3 mg/mg Normal [facility] Comment on above: Performed By: #### T SH, CRP, CMP #### [facility] [address] [place] [address] Dr. Haile Omalley [facility] 4 mm/hr Normal <=20 [facility] Comment on above: Performed By: #### S EDR #### [facility] [address] [place] [address] Dr. Haile Omalley TSHon 12-16-2021 TSH 1.097 uIU/mL Normal 0.358-3.740 [facility] Comment on above: Performed By: #### T SH, CRP, CMP #### [facility] [address] [place] [address] Dr. Haile Omalley TSH RANGE SEE BELOW Normal [facility] Comment on above: Result Comment: <0.3 4 UIU/ml HYPERTHYROID 0.34-5.60 UIU/ml EUTHYROID >5.60 UIU/ml HYPOTHYROID Performed By: #### T SH, CRP, CMP #### [facility] [address] [address] [address] Haile Omalley VIT B12 AND FOLATEon 022 Cobalamin (Vitamin B12) [Mass/Vol] 470.0 pg/mL Normal 193.0-986.0 [facility] Comment on above: Performed By: #### B 12FOL #### [facility] [address] [place] [address] Dr. Haile Omalley FOLATE 15.50 ng/mL Normal 8.60-58.90 [facility] Comment on above: Performed By: #### B 12FOL #### [facility] [address] [place] [address] Dr. Haile Omalley Vital Signs Date Time Vital Sign Value Performing Clinician Facility 03-28-2024 12:13 Body height 185.42 cm [facility] 03-28-2024 12:13 Body mass index (BMI) [Ratio] 20 kg/m2 [facility] 03-28-2024 12:13040 Body weight 69.11 kg [facility] 03-28-2024 12:13040 Diastolic blood pressure 65 mm[Hg] [facility] 03-28-2024 12:130400 Heart rate 76 /min [facility] 03-28-2024 12:13040 Respiratory rate 12 /min [facility] 03-28-2024 12:130400 Systolic blood pressure 116 mm[Hg] [facility] 01-11-2024 14:15040 Body height 185.42 cm DO Cameron Ball Work Phone: [facility] 01-11-2024 14:15-0400 Body mass index (BMI) [Ratio] 22.1 kg/m2 DO Cameron Ball Work Phone: [facility] 01-11-2024 14:15-0400 Body weight 75.97 kg DO Cameron Ball Work Phone: [facility] 01-11-2024 14:15-0400 Diastolic blood pressure 73 mm[Hg] DO Cameron Ball Work Phone: [facility] 01-11-2024 14:15-0400 Heart rate 66 /min DO Cameron Ball Work Phone: [facility] 01-11-2024 14:15-0400 Respiratory rate 12 /min DO Cameron Ball Work Phone: [facility] 01-11-2024 14:15-0400 Systolic blood pressure 153 mm[Hg] DO Cameron Ball Work Phone: [facility] 12-06-2023 10:28-0400 Body height 185.42 cm DO Cameron Ball Work Phone: [facility] 12-06-2023 10:28-0400 Body mass index (BMI) [Ratio] 21.5 kg/m2 DO Cameron Ball Work Phone: [facility] 12-06-2023 10:28-0400 Body weight 73.99 kg DO Cameron Ball Work Phone: [facility] 12-06-2023 10:28-0400 Diastolic blood pressure 65 mm[Hg] DO Cameron Ball Work Phone: [facility] 12-06-2023 10:28-0400 Heart rate 77 /min DO Cameron Ball Work Phone: [facility] 12-06-2023 10:28-0400 Respiratory rate 12 /min DO Cameron Ball Work Phone: [facility] 12-06-2023 10:28-0400 Systolic blood pressure 126 mm[Hg] DO Cameron Ball Work Phone: [facility] 12-01-2023 12:00-0400 Body temperature 97.6 [degF] DO Cameron Ball Work Phone: [facility] 12-01-2023 12:00-0400 Diastolic blood pressure 78 mm[Hg] DO Cameron Ball Work Phone: [facility] 12-01-2023 12:00-0400 Heart rate 64 /min DO Cameron Ball Work Phone: [facility] 12-01-2023 12:00-0400 Respiratory rate 16 /min DO Cameron Ball Work Phone: [facility] 12-01-2023 12:00-0400 SaO2% (BldA) [Mass fraction] 95 % DO Cameron Ball Work Phone: [facility] 12-01-2023 12:00-0400 Systolic blood pressure 155 mm[Hg] DO Cameron Ball Work Phone: [facility] 12-01-2023 06:00-0400 Body weight 78 kg DO Cameron Ball Work Phone: [facility] 11-29-2023 14:14-0400 Body height 172.72 cm DO Cameron Ball Work Phone: [facility] 11-14-2023 11:22-0400 Diastolic blood pressure 71 mm[Hg] DO Cameron Ball Work Phone: [facility] 11-14-2023 11:22-0400 Heart rate 70 /min DO Cameron Ball Work Phone: [facility] 11-14-2023 11:22-0400 Respiratory rate 16 /min DO Cameron Ball Work Phone: [facility] 11-14-2023 11:22-0400 SaO2% (BldA) [Mass fraction] 95 % DO Cameron Ball Work Phone: [facility] 11-14-2023 11:22-0400 Systolic blood pressure 115 mm[Hg] DO Cameron Ball Work Phone: [facility] 11-14-2023 09:55-0400 Body height 172.72 cm DO Cameron Ball Work Phone: [facility] 11-14-2023 09:55-0400 Body mass index (BMI) [Ratio] 25.6 kg/m2 DO Cameron Ball Work Phone: [facility] 11-14-2023 09:55-0400 Body weight 76.5 kg DO Cameron Ball Work Phone: [facility] 11-14-2023 09:11-0400 Body temperature 98.1 [degF] DO Cameron Ball Work Phone: [facility] 10-24-2023 11:28-0400 Body height 172.72 cm DO Cameron Ball Work Phone: [facility] 10-24-2023 11:28-0400 Body mass index (BMI) [Ratio] 24.9 kg/m2 DO Cameron Ball Work Phone: [facility] 10-24-2023 11:28-0400 Body weight 74.38 kg DO Cameron Ball Work Phone: [facility] 10-24-2023 11:28-0400 Diastolic blood pressure 80 mm[Hg] DO Cameron Ball Work Phone: [facility] 10-24-2023 11:28-0400 Heart rate 73 /min DO Cameron Ball Work Phone: [facility] 10-24-2023 11:28-0400 Respiratory rate 18 /min DO Cameron Ball Work Phone: [facility] 10-24-2023 11:28-0400 SaO2% (BldA) [Mass fraction] 96 % DO Cameron Ball Work Phone: [facility] 10-24-2023 11:28-0400 Systolic blood pressure 148 mm[Hg] DO Cameron Ball Work Phone: [facility] 10-18-2023 11:08-0400 Body height 172.72 cm DO Cameron Ball Work Phone: [facility] 10-18-2023 11:08-0400 Body mass index (BMI) [Ratio] 26.1 kg/m2 DO Cameron Ball Work Phone: [facility] 10-18-2023 11:08-0400 Body weight 78.01 kg DO Cameron Ball Work Phone: [facility] 10-10-2023 11:07-0400 Body height 172.72 cm DO Cameron Ball Work Phone: [facility] 10-10-2023 11:07-0400 Body mass index (BMI) [Ratio] 26.1 kg/m2 DO Cameron Ball Work Phone: [facility] 10-10-2023 11:07-0400 Body weight 78.01 kg DO Cameron Ball Work Phone: [facility] 09-26-2023 10:58-0500 Body height 172.72 cm DO Cameron Ball Work Phone: [facility] 09-26-2023 10:58-0500 Body mass index (BMI) [Ratio] 25.6 kg/m2 DO Cameron Ball Work Phone: [facility] 09-26-2023 10:58-0500 Body weight 76.37 kg DO Cameron Ball Work Phone: [facility] 09-26-2023 10:58-0500 Diastolic blood pressure 82 mm[Hg] DO Cameron Ball Work Phone: [facility] 09-26-2023 10:58-0500 Heart rate 72 /min DO Cameron Ball Work Phone: [facility] 09-26-2023 10:58-0500 Systolic blood pressure 140 mm[Hg] DO Cameron Ball Work Phone: [facility] 07-11-2023 13:30-0500 Body height 172.72 cm Cameron Ball Other [employer] Other 07-11-2023 13:30-0500 Body mass index (BMI) [Ratio] 25.91 kg/m2 Cameron Ball Other [employer] Other 07-11-2023 13:30-0500 Body weight 77.29 kg Cameron Ball Other [employer] Other 07-11-2023 13:30-0500 Diastolic blood pressure 83 mm[Hg] Cameron Ball Other [employer] Other 07-11-2023 13:30-0500 Respiratory rate 12 /min Cameron Ball Other [employer] Other 07-11-2023 13:30-0500 Systolic blood pressure 141 mm[Hg] Cameron Ball Other [employer] Other 03-07-2023 13:30-0400 Body height 172.72 cm Cameron Ball Other [employer] Other 03-07-2023 13:30-0400 Body mass index (BMI) [Ratio] 25.39 kg/m2 Cameron Ball Other [employer] Other 03-07-2023 13:30-0400 Body weight 75.75 kg Cameron Ball Other [employer] Other 03-07-2023 13:30-0400 Diastolic blood pressure 66 mm[Hg] Cameron Ball Other [employer] Other 03-07-2023 13:30-0400 Systolic blood pressure 149 mm[Hg] Cameron Ball Other [employer] Other 02-26-2023 10:24-0400 Diastolic blood pressure 67 mm[Hg] DO Cameron Ball Work Phone: [facility] 02-26-2023 10:24-0400 Heart rate 75 /min DO Cameron Ball Work Phone: [facility] 02-26-2023 10:24-0400 Respiratory rate 18 /min DO Cameron Ball Work Phone: [facility] 02-26-2023 10:24-0400 SaO2% (BldA) [Mass fraction] 98 % DO Cameron Ball Work Phone: [facility] 02-26-2023 10:24-0400 Systolic blood pressure 124 mm[Hg] DO Cameron Ball Work Phone: [facility] 02-26-2023 08:17-0400 Body height 172.72 cm DO Cameron Ball Work Phone: [facility] 02-26-2023 08:17-0400 Body weight 72.57 kg DO Cameron Ball Work Phone: [facility] 02-13-2023 09:30-0400 Body height 172.72 cm Cameron Ball Other [facility] [email or web address] Other 02-13-2023 09:30-0400 Body mass index (BMI) [Ratio] 24.78 kg/m2 Cameron Ball Other [facility] [email or web address] Other 02-13-2023 09:30-0400 Body weight 73.94 kg Cameron Ball Other [employer] Other 02-13-2023 09:30-0400 Diastolic blood pressure 63 mm[Hg] Cameron Ball Other [employer] Other 02-13-2023 09:30-0400 Respiratory rate 12 /min Cameron Ball Other [employer] Other 02-13-2023 09:30-0400 Systolic blood pressure 111 mm[Hg] Cameron Ball Other [employer] Other 01-02-2023 14:00-0400 Body height 172.72 cm Cameron Ball Other [employer] Other 01-02-2023 14:00-0400 Body mass index (BMI) [Ratio] 25.48 kg/m2 Cameron Ball Other [employer] Other 01-02-2023 14:00-0400 Body weight 76.02 kg Cameron Ball Other [employer] Other 01-02-2023 14:00-0400 Diastolic blood pressure 63 mm[Hg] Cameron Ball Other [employer] Other 01-02-2023 14:00-0400 Respiratory rate 12 /min Cameron Ball Other [employer] Other 01-02-2023 14:00-0400 Systolic blood pressure 118 mm[Hg] Cameron Ball Other [employer] Other 11-01-2022 15:45-0400 Body height 172.72 cm Cameron Ball Other [employer] Other 11-01-2022 15:45-0400 Body mass index (BMI) [Ratio] 25.91 kg/m2 Cameron Ball Other [employer] Other 11-01-2022 15:45-0400 Body weight 77.29 kg Cameron Ball Other [employer] Other 11-01-2022 15:45-0400 Diastolic blood pressure 74 mm[Hg] Cameron Ball Other [employer] Other 11-01-2022 15:45-0400 Respiratory rate 16 /min Cameron Ball Other [employer] Other 11-01-2022 15:45-0400 Systolic blood pressure 118 mm[Hg] [employer] Other [employer] Other 08-29-2021 15:00-0500 Body height 172.72 cm Hiren Da Silva Other [employer] Other 08-29-2021 15:00-0500 Body mass index (BMI) [Ratio] 28.28 kg/m2 Hiren Da Silva Other [employer] Other 08-29-2021 15:00-0500 Body weight 84.37 kg Hiren Elsnorma Other [employer] Other 08-03-2021 09:30-0500 Body height 172.72 cm Hiren Rekha Other [employer] Other 08-03-2021 09:30-0500 Body mass index (BMI) [Ratio] 28.28 kg/m2 Hiren Elsnorma Other [employer] Other 08-03-2021 09:30-0500 Body weight 84.37 kg Hiren Elsnorma Other [employer] Other Encounters Encounter Date Encounter Type Care Provider Facility Start: 03-28-2024 End: 03-28-2024 ambulatory [facility] Work Phone: Start: 03-28-2024 End: 03-28-2024 Patient encounter procedure [facility] Work Phone: Start: 01-11-2024 End: 01-11-2024 ambulatory DO Cameron Gaming Work Phone: [facility] Work Phone: Start: 01-11-2024 End: 01-11-2024 Patient encounter procedure DO Cameron Ball Work Phone: [facility] Work Phone: Start: 01-11-2024 ambulatory Damon PATEL Facility :[facility] Start: 01-02-2024 Non-patient / Non-visit DO Nestor carey Ball Work Phone: [facility] Work Phone: Start: 12-06-2023 End: 12-06-2023 ambulatory DO Cameron Ball Work Phone: [facility] Work Phone: Start: 12-06-2023 End: 12-06-2023 Patient encounter procedure DO Cameron Ball Work Phone: [facility] Work Phone: Start: 12-04-2023 Non-patient / Non-visit DO Nestor carey Ball Work Phone: [facility] Work Phone: Start: 11-30-2023 End: 11-30-2023 ambulatory Syed Buchanan Facility:[id number] Start: 11-29-2023 End: 12-01-2023 Non-patient / Non-visit DO Cameron Ball Work Phone: [facility] Gastroenterology Work Phone: Start: 11-28-2023 End: 12-01-2023 Evaluation and management of inpatient DO Cameron Ball Work Phone: [facility] [place] [facility] Work Phone: Start: 11-28-2023 Non-patient / Non-visit DO Nestor carey Ball Work Phone: [facility] Work Phone: Start: 11-14-2023 End: 11-14-2023 Admission to same day surgery center DO Cameron Ball Work Phone: [facility] [place] Start: 11-14-2023 End: 11-14-2023 ambulatory DO Cameron Ball Work Phone: [facility] Work Phone: Start: 11-14-2023 Non-patient / Non-visit DO Nestor cherry Ball Work Phone: [facility] Work Phone: Start: 11-07-2023 End: 11-07-2023 Patient encounter procedure DO Cameron Ball Work Phone: [facility] Work Phone: Start: 11-07-2023 End: 11-07-2023 ambulatory DO Cameron Ball Work Phone: [facility] Work Phone: Start: 11-07-2023 Encounter for preprocedural laboratory examination John Adam [facility] Start: 10-24-2023 Patient encounter status DO Cameron Ball Work Phone: [facility] Start: 10-24-2023 End: 10-24-2023 ambulatory DO Cameron Ball Work Phone: [facility] Work Phone: Start: 10-24-2023 End: 10-24-2023 Encounter for preprocedural cardiovascular examination DO Cameron Ball Work Phone: [facility] Start: 10-24-2023 End: 10-24-2023 Patient encounter procedure DO Cameron Ball Work Phone: [facility] Work Phone: Start: 10-18-2023 End: 10-18-2023 ambulatory DO Cameron Ball Work Phone: [facility] Work Phone: Start: 10-18-2023 End: 10-18-2023 Patient encounter procedure DO Cameron Ball Work Phone: [facility] Work Phone: Start: 10-11-2023 End: 10-11-2023 Patient encounter procedure DO Cameron Ball Work Phone: [facility] [place] Work Phone: Start: 10-11-2023 End: 10-11-2023 ambulatory DO Cameron Ball Work Phone: [facility] Work Phone: Start: 10-10-2023 End: 10-10-2023 Patient encounter procedure DO Cameron Ball Work Phone: [facility] Work Phone: Start: 09-26-2023 End: 09-26-2023 Patient encounter procedure DO Cameron Ball Work Phone: [facility] Work Phone: Start: 07-11-2023 End: 07-11-2023 ambulatory Cameron Gaming Other [employer] Other Start: 07-11-2023 Patient encounter procedure Cameron Gaming [facility] Start: 07-01-2023 End: 07-01-2023 ambulatory Cameron Gaming Other [employer] Other Start: 07-01-2023 Telephone encounter Cameron [facility] Start: 04-11-2023 End: 04-11-2023 ambulatory Imad Asaad Facility:[facility] Start: 03-30-2023 End: 03-30-2023 ambulatory Asim Mathur Other [employer] Other Start: 03-30-2023 Telephone encounter Asim C[facility] [employer] [facility] Start: 03-07-2023 End: 03-07-2023 ambulatory Cameron Gaming Other [employer] Other Start: 03-07-2023 Office outpatient vi sit 25 minutes Cameron Gaming [facility] Start: 03-05-2023 End: 03-05-2023 ambulatory Cameron Gaming Other [employer] Other Start: 03-05-2023 Telephone encounter Cameron Gaming [facility] Start: 02-26-2023 Telephone encounter Cameron Gaming [facility] Start: 02-26-2023 End: 02-26-2023 Admission to same day surgery center DO Cameron Gaming Work Phone: [facility] Work Phone: Start: 02-26-2023 End: 02-26-2023 ambulatory DO Cameron Gaming Work Phone: [facility] Work Phone: Start: 02-13-2023 End: 02-13-2023 ambulatory Cameron Gaming Other [employer] Other Start: 02-13-2023 Office outpatient vi sit 15 minutes Cameron Gaming [facility] Start: 01-10-2023 End: 01-10-2023 ambulatory Imad Asaad Other [employer] Other Start: 01-10-2023 Telephone encounter Imad Asaad [facility] Start: 01-02-2023 End: 01-02-2023 ambulatory Cameron Gaming Other [employer] Other Start: 01-02-2023 Office outpatient vi sit 25 minutes Cameron Gaming [facility] Start: 11-01-2022 End: 11-01-2022 ambulatory Cameron Gaming Other [employer] Other Start: 11-01-2022 Office outpatient vi sit 25 minutes Cameron Gaming [facility] Start: 10-25-2022 End: 10-26-[address] CAMERON GAMING Facility: Start: 10-20-2022 End: 10-20-2022 ambulatory Cameron Gaming Other [employer] Other Start: 10-20-2022 Telephone encounter Cameron [facility] Start: 10-18-2022 End: 10-18-2022 ambulatory Cameron Gaming Other [employer] Other Start: 10-18-2022 Telephone encounter Cameron [facility] Start: 07-20-2022 End: 07-20-[address] CAMERON GAMING Facility:[facility] Start: 07-18-2022 End: 07-19-[address] CAMERON GAMING Facility:[facility] Start: 07-04-2022 Adult health examination Imad Asaad Other [employer] Other Start: 07-04-2022 Encounter for genera l adult medical examination without abnormal findings Cameron Gaming Other [employer] Other Start: 12-27-2021 End: 12-28-[address] CAMERON GAMING Facility:[facility] Start: 12-16-2021 End: 12-17-[address] DOCTOR GLASS Facility:[facility] Start: 08-29-2021 End: 08-29-2021 ambulatory Hiren Da Silva Other [employer] Other Start: 08-29-2021 Office outpatient vi sit 15 minutes Hiren Da Silva [facility] Start: 08-03-2021 End: 08-03-2021 ambulatory Hiren Da Silva Other [employer] Other Start: 08-03-2021 Office outpatient vi sit 15 minutes Hiren Da Silva [facility] Procedures Date Procedure Procedure Detail Performing Clinician Start: 11-30-2023 Urine culture DO Cameron Gaming Work Phone: Start: 11-29-2023 Antibody screen Immeghan Nguyễn Comment on above: Order Comment: Transfuse now? N Result Comment: PERF ORMED BY: [facility] [address] [place] [address] PATHOLOGIST ASSEMBLER CHASSIS JAMISON ANDINO M.D. Start: 11-14-2023 Decompression of median nerve DO Sher Gaming Work Phone: Start: 10-11-2023 X-ray of lumbar spine, six views including bending views DO Cameron Gaming Work Phone: Start: 10-11-2023 X-ray of cervical spine DO Cameron Gaming Work Phone: Start: 02-26-2023 Esophagogastroduodenoscopy DO Cameron B all Work Phone: Start: 05-01-2016 Screening for malignant neoplasm of colon Imad Asaad Other Depression screening Imad As aad Other Plan of Treatment Date Care Activity Detail Author Start: 12-01-2023 [facility] Start: 11-30-2023 Bacteria identified in Urine by Culture Urine Culture [facility] Start: 11-30-2023 Referral to urologist [facility] Start: 11-28-2023 End: 11-28-2023 [facility] Start: 11-28-2023 Referral to design tech [facility] Start: 11-28-2023 Hospital admission [facility] Start: 11-14-2023 End: 11-14-2023 [facility] Start: 10-24-2023 EKG 12 channel panel [facility] Start: 10-19-2023 Patient referral [facility] Work Phone: Start: 02-26-2023 [facility] MR Cervical spine WO contrast [facility] MR Lumbar spine WO contrast [facility] Patient Education Diverticulosis (DC) Benign Prostatic Hyperplasia (Enlarged Prostate) (DC) Urinary Retention [facility] Work Phone: Patient referral [facility] Work Phone: Gallbladder [facility] Immunizations Immunization Date Immunization Notes Care Provider Fantasma yen 07-11-2023 Prevnar 20 Cameron Gaming Other [facility] 04-06-2023 influenza virus vaccine, unspecified formulation DO Cameron Gaming Work Phone: [facility] 04-06-2023 influenza, high dose seasonal, preservative-free Cameron Gaming Other [facility] [email or web address] Other 05-10-2022 influenza virus vaccine, split virus (incl. purified surface antigen) Cameron Gaming Other [facility] [email or web address] Other 05-10-2022 influenza virus vaccine, unspecified formulation DO Cameron Gaming Work Phone: [facility] 01-13-2022 tetanus toxoid, reduced diphtheria toxoid, and acellular pertussis vaccine, adsorbed DO Cameron Gaming Work Phone: [facility] 05-25-2021 COVID-19 mRNA-1273 (Moderna) DO Cameron Gaming Work Phone: [facility] 04-12-2021 influenza virus vaccine, split virus (incl. purified surface antigen) Cameron Gaming Other [facility] [email or web address] Other 04-12-2021 influenza virus vaccine, unspecified formulation DO Cameron Gaming Work Phone: [facility] 09-22-2020 COVID-19 Vaccine Moderna - Documentation Purposes Only Cameron Gaming Other [facility] 08-25-2020 COVID-19 Vaccine Moderna - Documentation Purposes Only Cameron Gaming Other [facility] 06-23-2020 influenza virus vaccine, split virus (incl. purified surface antigen) Cameron Gaming Other [facility] [email or web address] Other 06-23-2020 influenza virus vaccine, unspecified formulation DO Cmaeron Gaming Work Phone: [facility] 06-23-2020 Seasonal trivalent influenza vaccine, adjuvanted, preservative free DO Cameron Gaming Work Phone: [facility] 05-14-2019 influenza virus vaccine, split virus (incl. purified surface antigen) Cameron Gaming Other [facility] [email or web address] Other 05-14-2019 influenza virus vaccine, unspecified formulation DO Cameron Gaming Work Phone: [facility] 04-29-2019 influenza, high dose seasonal, preservative-free DO Cameron Gaming Work Phone: [facility] 05-15-2018 influenza virus vaccine, split virus (incl. purified surface antigen) Cameorn [employer] Other [facility] [email or web address] Other 05-15-2018 influenza virus vaccine, unspecified formulation DO Cameron Gaming Work Phone: [facility] 05-15-2018 Seasonal trivalent influenza vaccine, adjuvanted, preservative free DO Cameron Gaming Work Phone: [facility] 04-05-2017 influenza virus vaccine, split virus (incl. purified surface antigen) Cameron [employer] Other [facility] [email or web address] Other 04-05-2017 influenza virus vaccine, unspecified formulation DO Cameron Gaming Work Phone: [facility] 04-05-2017 influenza, high dose seasonal, preservative-free DO Cameron Gaming Work Phone: [facility] 05-01-2016 pneumococcal conjugate vaccine, 13 valent Cameron Gaming Other [facility] 04-27-2016 influenza virus vaccine, split virus (incl. purified surface antigen) Cameron Gaming Other [facility] [email or web address] Other 04-27-2016 influenza virus vaccine, unspecified formulation DO Cameron [employer] Work Phone: [facility] 04-27-2016 influenza, high dose seasonal, preservative-free DO Cameron [employer] Work Phone: [facility] NEGATED: Highlighted row has not occurred!04-09-2019 influenza, high dose seasonal, preservative-free Patient Objection Hiren Da Silva Other [facility] [email or web address] Other NEGATED: Highlighted row has not occurred!04-09-2019 influenza virus vaccine, unspecified formulation DO Cameron Gaming Work Phone: [facility] Payers Date Payer Category Payer Medicare [id number] 2023 Unknown [id number] 2023 Self-pay [id number] 2023 Unknown [id number] 2018 Medicare [id number] 1959 Medicare [id number] 2. [id number] 1940 Unknown [id number] 2.16.84 [id number] 1940 Unknown [id number] 2.16.84 0.1.066167.3.579.2.593 1940 Unknown [id number] 2.16.84 0.1.210924.3.579.2.593 1940 Unknown [id number] 2.16.84 0.1.109338.3.579.2.593 1940 Unknown [id number] 2.16.84 0.1.994601.3.579.2.593 1940 Unknown [id number] 2.16.8 40.1.625988.3.579.2.727 1940 Unknown [id number] 2.16.8 40.1.715088.3.579.2.727 Medicare [id number] 2.16.8 [id number] Unknown [id number] 2.16.8 40.1.245547.3.579.2.531 Unknown [id number] 2.16.8 40.1.644408.3.579.2.531 Unknown [id number] 2.16.8 40.1.907406.3.579.2.531 Unknown [id number] 2.16.8 40.1.742094.3.579.2.531 Unknown [id number] 2.16.8 40.1.707096.3.579.2.531 Unknown [id number] 2.16.8 40.1.426288.3.579.2.531 Unknown [id number] 2.16.8 40.1.281928.3.579.2.531 Social History Date Type Detail Facility Unknown if ever smoked [employer] Other Sex Assigned At Sex Assigned At Bir th [employer] Other Start: 02-26-2023 Tobacco smoking status [facility] Ex-smoker (finding) [facility] Start: 1940 Sex Assigned At Male F [facility] Start: 10-24-2023 End: 11-30-2023 Tobacco smoking status [facility] Smoker (finding) [facility] Medical Equipment Procedure Code Equipment Code Equipment Origin al Text Equipment Identifier Dates Capsule endoscopy, for patency of lumen evaluation Video capsule endoscopy system [id number] FDA Start: 04-11-2023 Spinal fixation plate, non-bioabsorbable ()[id number] FDA Start: 04-27-2020 Intervertebral-b od y internal spinal fixation system ()[id number] FDA Start: 04-27-2020 Intervertebral-b od y internal spinal fixation system ()[id number] FDA Start: 04-27-2020 Intervertebral-b od y internal spinal fixation system ()[id number] FDA Start: 04-27-2020 Bone-screw internal spinal fixation system, non-sterile ()[id number] FDA Start: 04-27-2020 Bone-screw internal spinal fixation system, non-sterile ()[id number] FDA Start: 04-27-2020 Goals Date Patient Goal Desired Activity /State Functional Status Date Assessment Result Facility 12-01-2023 Functional status Patient at Baseline [facility] Work Phone: Mental Status Date Assessment Result Facility 12-01-2023 Cognitive function Cognitive Sta tus Patient at Baseline [facility] Work Phone: Clinical Notes 08-03-2021 to 12-01-2023 Note Date & Type Note Facility 12-01-2023 Progress note Note Date/Time December 01, 2023 8:56am [facility] [address] [place] [address] Gastroenterology PN Signed Patient: Rishi Babcock MR#: [id number] : 1940 Acct:[id number] Age/Sex: 83 / M Adm Date: 4 Loc: Room: [address] [place] [address] Type: ADM IN Attending Dr: George Romero MD Copies to: MD Cameron Duffy,DO Asim Mathur MD~ Date of Service: 12/01/2023 Subjective Subjective Narrative: He continued to have a couple of bowel movements with blood the night before last, yesterday no further bowel movements with blood. Last evening he had a loose bowel movement at shift change he does not think there was blood in it, maybe a small amount, nursing in the room at the time of interview thinks there may have been a very small amount with the stool. He is not having tenesmus or significant frequent urge to have bowel movement. Exam Physical Exam Vital Signs: Temp Pulse Resp BP Pulse Ox O2 Del Method 98.4 F 82 12 92/58 L 98 Room Air 12/01/23 03:53 12/01/23 03:53 12/01/23 03:53 12/01/23 03:53 12/01/23 03:53 11/30/23 23:19 Objective Allergies and Medications Allergies/Adverse Reactions: Allergies Allergy/AdvReac Type Severity Reaction Status Date / Time ciprofloxacin [From Cipro] Allergy Unknown Muscle Pain Verified 11/29/23 12:51 Active Meds: Active Medications Generic Name Dose Route Start Last Admin Trade Name Freq PRN Reason Stop Dose Admin Acetaminophen 1,000 mg 11/28/23 22:58 12/01/23 08:15 Acetaminophen 500 Mg Tablet PO 11/27/24 22:57 1,000 mg Q6HR PRN Administration Pain Scale 1 - 3 or fever Gabapentin 200 mg 11/29/23 09:00 12/01/23 08:15 Gabapentin 100 Mg Capsule PO 11/28/24 08:59 200 mg BID SOFY Administration Hydromorphone HCl 0.5 mg 11/28/23 22:58 Hydromorphone 0.5 Mg/0.5 Ml Syringe IV-PUSH Q4H PRN Pain Scale 8 - 10 Ondansetron HCl 4 mg 11/28/23 22:58 Ondansetron 4 Mg/2 Ml Vial IV-PUSH 11/27/24 22:57 Q6H PRN Nausea And Vomiting Pantoprazole Sodium 40 mg 11/28/23 23:15 12/01/23 08:15 Pantoprazole 40 Mg Vial IV-PUSH 11/27/24 23:14 40 mg BID SOFY Administration Sodium Chloride 10 ml 11/28/23 22:58 11/29/23 21:50 Sodium Chloride 0.9 % 10 Ml Vial.Pf INJECTION 11/27/24 22:57 10 ml PRN PRN Administration Dilution Sodium Chloride 10 ml 11/28/23 22:58 Sodium Chloride 0.9 % 10 Ml Syringe IV-PUSH 11/27/24 22:57 PRN PRN Flush Sodium Chloride 0 ml 11/29/23 06:00 12/01/23 05:21 Sodium Chloride 0.9 % 10 Ml Syringe IV-PUSH 11/28/24 05:59 Not Given QSHIFT SOFY Tamsulosin HCl 0.4 mg 11/29/23 09:00 12/01/23 08:15 Tamsulosin 0.4 Mg Cap.Er.24h PO 11/28/24 08:59 0.4 mg BID SOFY Administration A&P - Gastroenterology Assessment/Plan (1) Diverticular hemorrhage: Plan His bloody bowel movements on night were likely old blood washing out still. It does not appear he is actively bleeding still. His hemoglobin is still equilibrating. -Resuscitation per primary team -If no further signs of overt GI bleeding he can be discharged from a GI standpoint tomorrow -He will not need GI office follow-up for a diverticular hemorrhage Thank you for this consult, I will peripherally follow Documented By: Asim Mathur MD 12/01/23 0853 Signed By: <Electronically signed by Asim Mathur MD> 12/01/23 0856 [facility] Work Phone: 1(654) 220-831105-03-2024 Progress note Author George Romero [facility] November 30, 2023 1:31pm Note Date/Time November 30, 2023 11:35a m [facility] [address] [place] [address] Hospitalist Progress Note Signed Patient: Rishi Babcock MR#: [id number] : 1940 Acct:[id number] Age/Sex: 83 / M Adm Date: 4 Loc: Room: [address] [place] [address] Type: ADM IN Attending Dr: George Romero MD Copies to: ~ Date of Service: 11/30/2023 Subjective Subjective Narrative: Attending note: I saw the patient personally on the day of encounter. I reviewed the relevant history, and performed the perla elements of the physical examination. I reviewedthe relevant laboratory workup, radiological studies and the current treatment plan. I formulated the plan of care and confirmed it with the resident/student/PERSONNEL OFFICER. Patient is seen and evaluated on 4 progressive. Patient states that he is not doing great this morning. He he noted some blood in his urine. It is unsure whether or not he showed this to nurses. He states this started yesterday and has continued into today. He denies any pain. [id number]-[id number] ultrasound was performed and demonstrated approximately 450 cc of urine. Otherwise, patient continues to have blood in the stool. According to nursing notes, patient has had 5 bowel movements since admission. With these bowel movements he is unable to make it to the commode in time. General: ANO x3, cooperative Cardiovascular: Regular rate and rhythm, no rubs murmurs or gallops, Respiratory: Clear to auscultation bilaterally, no rhonchi or wheezing, Abdomen: Soft, palpable distended bladder with minimal tenderness to palpation, denies left lower quadrant tenderness palpation Extremities: No edema Assessment and plan Acute lower GI bleed with chronic NSAID Diverticulosis Hemoglobin baseline close to 15, decreased to 9.1 Monitor H&H Continue Protonix 40 mg twice daily Start bowel prep today for possible colonoscopy tomorrow pending further bleeding Appreciate GI input Urinary retention/urinary overflow/prostamegaly Chronic prostamegaly with outpatient urologist in [place], has been recommended prostate procedure Currently on Flomax 0.4 twice daily 500 mL plus urinary retention currently with no signs of GERONIMO or infection Discussed in depth risk of persistent urinary retention including GERONIMO and infection. He declined for now Chaidez catheter to drain bladder. schedule bladder scan Monitor BMP Consult urology as patient now has hematuria with urinary retention. Hypomagnesemia Replacement given SCD DVT prophylaxis, Chronic conditions HTN?metoprolol, lisinopril/HCTZ Severe peripheral neuropathy?patient walks with walker due to numbness of bilateral feet History of A-fib?ablation?not on anticoagulation Exam Physical Exam Vital Signs: Temp Pulse Resp BP Pulse Ox O2 Del Method 98.4 F 71 16 150/70 H 98 Room Air 11/30/23 00:00 11/30/23 04:00 11/30/23 04:00 11/30/23 04:00 11/30/23 04:00 11/30/23 04:00 Objective Lab Results 11/30/23 04:44 11/30/23 04:44 Meds Allergies and Active Meds Allergies ciprofloxacin [From Cipro] Allergy (Unknown, Verified 11/29/23 12:51) Muscle Pain Active Meds: Active Medications Generic Name Dose Route Start Last Admin Trade Name Freq PRN Reason Stop Dose Admin Acetaminophen 1,000 mg 11/28/23 22:58 11/30/23 09:05 Acetaminophen 500 Mg Tablet PO 11/27/24 22:57 1,000 mg Q6HR PRN Administration Pain Scale 1 - 3 or fever Gabapentin 200 mg 11/29/23 09:00 11/30/23 09:05 Gabapentin 100 Mg Capsule PO 11/28/24 08:59 200 mg BID SOFY Administration Hydromorphone HCl 0.5 mg 11/28/23 22:58 Hydromorphone 0.5 Mg/0.5 Ml Syringe IV-PUSH Q4H PRN Pain Scale 8 - 10 Ondansetron HCl 4 mg 11/28/23 22:58 Ondansetron 4 Mg/2 Ml Vial IV-PUSH 11/27/24 22:57 Q6H PRN Nausea And Vomiting Pantoprazole Sodium 40 mg 11/28/23 23:15 11/30/23 09:05 Pantoprazole 40 Mg Vial IV-PUSH 11/27/24 23:14 40 mg BID SOFY Administration Sodium Chloride 10 ml 11/28/23 22:58 11/29/23 21:50 Sodium Chloride 0.9 % 10 Ml Vial.Pf INJECTION 11/27/24 22:57 10 ml PRN PRN Administration Dilution Sodium Chloride 10 ml 11/28/23 22:58 Sodium Chloride 0.9 % 10 Ml Syringe IV-PUSH 11/27/24 22:57 PRN PRN Flush Sodium Chloride 0 ml 11/29/23 06:00 11/30/23 09:05 Sodium Chloride 0.9 % 10 Ml Syringe IV-PUSH 11/28/24 05:59 10 ml QSHIFT SOFY Administration Tamsulosin HCl 0.4 mg 11/29/23 09:00 11/30/23 10:15 Tamsulosin 0.4 Mg Cap.Er.24h PO 11/28/24 08:59 0.4 mg BID SOFY Administration A&P - Hospitalist Assessment/Plan (1) Diverticulosis: (2) Acute lower GI bleeding: (3) Diverticular hemorrhage: (4) Benign prostatic hyperplasia with lower urinary tract symptoms: (5) Urinary retention due to benign prostatic hyperplasia: Plan l Documented By: George Romero MD 11/30/23 1128 Signed By: <Electronically signed by George Romero MD> 11/30/23 7877 [facility] Work Phone: 1(539) 986-624305-03-2024 Consult note Author Syed Buchanan [facility] November 30, 2023 12:18pm Note Date/Time November 30, 2023 12:18p m [facility] [address] [place] [address] Urology Consult Note Signed Patient: Rishi Babcock MR#: [id number] : 1940 Acct:[id number] Age/Sex: 83 / M Adm Date: 4 Loc: 4 Room: [address] [place] [address] Type: ADM IN Attending Dr: George Romero MD Copies to: MD Cameron Duffy DO Christopher S Reese, MD~ History of Present Illness Consult Details Consult Date: 11/30/2023 Reason for Urology Consult: Obstructive uropathy Requesting Provider: George Romero MD HPI: 83 yo long hx of bph and elevated psa sees dr kellogg in [place] on flomax daily and had a negative prostate biopsy a few yrs ago for psa 13 now adm with bloody stools and diahrrea and has incomplete emptying and is refusing chaidez asked to see Review of Systems Gastrointestinal Gastrointestinal: Reports diarrhea and Reports hematochezia Genitourinary Genitourinary: Reports difficulty urinating, Reports hematuria, Reports urinary frequency, Reports urinary incontinence and Reports urinary urgency [facility] Medical History (Updated 11/30/23 @ 12:17 by Syed Buchanan MD) Urinary retention due to benign prostatic hyperplasia pt refusing chaidez presently Hypertension Chronic kidney disease (CKD) Lumbar spondylosis Hypercholesterolemia Atherosclerosis of [place] arteries of extremities with intermittent claudication, bilateral legs Unspecified atrial flutter Tongue lesion Supraventricular tachycardia Spondylosis without myelopathy or radiculopathy, lumbar region (04/05/17) Other spondylosis with myelopathy, lumbar region Other spondylosis with myelopathy, cervical region Other mcfp (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 Motor neuron disease Iron deficiency anemia due to chronic blood loss 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 Gross hematuria Gastroesophageal reflux disease with esophagitis without hemorrhage Feeling of incomplete bladder emptying Elevated PSA CTS (carpal tunnel syndrome) Cervical spondylosis with radiculopathy Carpal tunnel syndrome of left wrist Benign prostatic hyperplasia with lower urinary tract symptoms Tongue abnormality s/p removal varicose vein BPH (benign prostatic hyperplasia) H/O falling Myelopathy Arthritis A-fib Surgical History History of carpal tunnel surgery of left wrist 10/2023 History of orthopedic surgery History of neck surgery History of tonsillectomy H/O prostate biopsy Status post middle ear reconstruction H/O removal of cyst History of cataract extraction H/O esophagogastroduodenoscopy History of cystoscopy History of colonoscopy History of ankle surgery right for fracture History of radiofrequency ablation procedure for cardiac arrhythmia Family History Mother Leukemia Cancer Father Heart problem Heart disease Brother Diabetes Sister Diabetes Brother Colon cancer Social History Smoking Status: Current every day smoker Tobacco Type: cigars Substance Use Type: None Substance Abuse Comment: mixed drink a couple times a week Meds Medications and Allergies Allergies ciprofloxacin [From Cipro] Allergy (Unknown, Verified 11/29/23 12:51) Muscle Pain Home Medications lisinopril 10 mg-hydrochlorothiazide 12.5 mg tablet 1 tab PO QAM htn 04/22/20 [History Confirmed 11/29/23] metoprolol succinate 25 mg tablet,extended release 24 hr 25 mg PO QAM 02/26/23 [History Confirmed 11/29/23] aspirin 81 mg tablet,delayed release (Adult Aspirin Regimen) 81 mg PO QAM 09/26/23 [History Confirmed 11/29/23] multivitamin 1 tab PO QHS 09/26/23 [History Confirmed 11/29/23] saw palmetto 450 mg capsule 450 mg PO BID 09/26/23 [History Confirmed 11/29/23] tamsulosin 0.4 mg capsule 0.4 mg PO BID 09/26/23 [History Confirmed 11/29/23] gabapentin 100 mg capsule 200 mg PO QAM AND QHS 10/24/23 [History Confirmed 11/29/23] omeprazole 40 mg capsule,delayed release 40 mg PO QAM 11/07/23 [History Confirmed 11/29/23] Exam Physical Exam Vital Signs: Temp Pulse Resp BP Pulse Ox O2 Del Method 98.2 F 95 18 139/68 92 L Room Air 11/30/23 12:06 11/30/23 12:06 11/30/23 12:06 11/30/23 12:06 11/30/23 12:06 11/30/23 12:06 Psych Mental Status: mental status grossly normal Results - Urology Labs 11/30/23 04:44 11/30/23 04:44 Labs: Laboratory Results - Last 48 hrs. 11/30/23 04:44: Magnesium Cancelled 11/30/23 04:44: Corrected WBC 5.6, RBC 2.74 L, Hgb 9.1 L, Hct 26.4 L, MCV 96.3, MCH 33.3, MCHC 34.6, RDW 13.7, Plt Count 200, MPV 8.8, PHA Creatinine Clear 60.45, Sodium 140, Potassium 3.7, Chloride 107, Carbon Dioxide 29.5, Anion Gap 7.2, BUN 13, Creatinine 0.88, Est GFR (CKD-EPI) > 60.0, Glucose 93, Calcium 8.9,Magnesium 1.7 L 11/29/23 04:08: Corrected WBC 7.3, Uncorrected WBC Count 7.3, RBC 3.14 L, Hgb 10.4 L, Hct 30.3 L, MCV 96.4, MCH 33.1, MCHC 34.3, RDW 13.8, Plt Count 207, MPV 9.1, Neut % (Auto) 65.8, Lymph % (Auto) 22.7, [place] % (Auto) 9.2, Eos % (Auto) 1.6, Baso % (Auto) 0.7, Nucleat RBC Rel Count 0.1, Neut # (Auto) 4.8, Lymph # (Auto) 1.7, [place] # (Auto) 0.7, Eos # (Auto) 0.1, Baso # (Auto) 0.0, PT 11.5, INR1.0, APTT 35.6, PHA Creatinine Clear 57.83, Sodium 139, Potassium 4.1, Chloride 105, Carbon Dioxide 27.3, Anion Gap 10.8, BUN 19, Creatinine 0.92, Est GFR (CKD-EPI) > 60.0, Glucose 83, Calcium 9.1, Magnesium 1.4 L, Total Bilirubin 1.4 H, Direct Bilirubin 0.20 H, Indirect Bilirubin 1.2, AST 21, ALT 13, Alkaline Phosphatase 117 H, Total Protein 5.4 L, Albumin 3.6, Globulin 1.8, Albumin/Globulin Ratio 2.0 11/29/23 01:16: Blood Type Recheck O Negative 11/28/23 23:36: Hgb 11.0 L, Hct 32.4 L 11/28/23 23:26: Blood Type O Negative, Antibody Screen Negative, Crossmatch (AHG) See Detail Imaging CT scan - abdomen: report reviewed Assessment/Plan (1) Urinary retention due to benign prostatic hyperplasia: Code(s): N40.1 - Benign prostatic hyperplasia with lower urinary tract symptoms; R33.8 - Other retention of urine (2) Diverticular hemorrhage: Code(s): K57.31 - Diverticulosis of large intestine without perforation or abscess with bleeding (3) Diverticulosis: Code(s): K57.90 - Diverticulosis of intestine, part unspecified, without perforation or abscess without bleeding (4) Acute lower GI bleeding: Code(s): K92.2 - Gastrointestinal hemorrhage, unspecified (5) A-fib: Code(s): I48.91 - Unspecified atrial fibrillation (6) Idiopathic peripheral neuropathy: Code(s): G60.9 - Hereditary and idiopathic neuropathy, unspecified (7) Chronic kidney disease (CKD): Qualifiers: Chronic kidney disease stage: stage 3 (moderate) Chronic kidney diseasestage 3 subtype: stage 3a (GFR 45-59) Qualified Code(s): N18.31 - Chronic kidney disease, stage 3a Code(s): N18.9 - Chronic kidney disease, unspecified (8) Elevated PSA: Code(s): R97.20 - Elevated prostate specific antigen [PSA] Plan will check urine cytology and culture and psa and will add dutasteride and up flomax to 0.8mg daily and needs out pt gu follow up Documented By: Syed Buchanan MD 11/30/23 1211 Signed By: <Electronically signed by Syed Buchanan MD> 11/30/23 1218 [facility] Work Phone: 1(545) 832-397105-02-2024 Progress note Author George Rmoero [facility] November 29, 2023 12:35pm Note Date/Time November 29, 2023 11:34a m [facility] [address] [place] [address] Hospitalist Progress Note Signed Patient: Rishi Babcock MR#: [id number] : 1940 Acct:[id number] Age/Sex: 83 / M Adm Date: 4 Loc: Room: 0C5151-4 Type: ADM IN Attending Dr: George Romero MD Copies to: ~ Date of Service: 11/29/2023 Subjective Subjective Narrative: Attending note: I saw the patient personally on the day of encounter. I reviewed the relevant history, and performed the perla elements of the physical examination. I reviewedthe relevant laboratory workup, radiological studies and the current treatment plan. I formulated the plan of care and confirmed it with the resident/student/PERSONNEL OFFICER. Evaluated at bedside. Continues to deny pain. Has had multiple bowel movementswhile here with blood clots present. 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 Bladder scan by nursing showed around 570 mL postvoid. [id number] ultrasound also showed 500 mL sometime later. Patient does have urologist outpatient who wants him to be seen in [place]. Currently denies dysuria, fever sweats or chills, worsening back pain. Discussed with the patient concern for prolonged urinary retention 500 mL plus and potential long-term damage to kidneys and possible infection. We recommended urinary Chaidez to drain the bladder, he refused the Chaidez and requested more time to think on accepting the Chaidez. Was transferred from [facility] overnight, no other events General: ANO x3, cooperative Cardiovascular: Regular rate and rhythm, no rubs murmurs or gallops, Respiratory: Clear to auscultation bilaterally, no rhonchi or wheezing, Abdomen: Soft, palpable distended bladder with minimal tenderness to palpation, denies left lower quadrant tenderness palpation Extremities: No edema Assessment and plan Acute lower GI bleed with chronic NSAID Diverticulosis Hemoglobin baseline close to 15, decreased to 10.4, Monitor H&H Continue Protonix 40 mg twice daily Start bowel prep today for possible colonoscopy tomorrow pending further bleeding Appreciate GI input Urinary retention/urinary overflow/prostamegaly Chronic prostamegaly with outpatient urologist in [place], has been recommended prostate procedure Currently on Flomax 0.4 twice daily 500 mL plus urinary retention currently with no signs of GERONIMO or infection Discussed in depth risk of persistent urinary retention including GERONIMO and infection. He declined for now Chaidez catheter to drain bladder. schedule bladder scan Monitor BMP Hypomagnesemia Replacement given SCD DVT prophylaxis, Chronic conditions HTN?metoprolol, lisinopril/HCTZ Severe peripheral neuropathy?patient walks with walker due to numbness of bilateral feet History of A-fib?ablation?not on anticoagulation Exam Physical Exam Vital Signs: Temp Pulse Resp BP Pulse Ox O2 Del Method 98.1 F 82 16 152/73 H 97 Room Air 11/29/23 08:00 11/29/23 08:00 11/29/23 08:00 11/29/23 08:00 11/29/23 08:00 11/29/23 08:00 Objective Lab Results 11/29/23 04:08 11/29/23 04:08 Meds Allergies and Active Meds Allergies ciprofloxacin [From Cipro] Allergy (Unknown, Verified 11/14/23 09:04) Muscle Pain Active Meds: Active Medications Generic Name Dose Route Start Last Admin Trade Name Freq PRN Reason Stop Dose Admin Acetaminophen 1,000 mg 11/28/23 22:58 Acetaminophen 500 Mg Tablet PO 11/27/24 22:57 Q6HR PRN Pain Scale 1 - 3 or fever Gabapentin 200 mg 11/29/23 09:00 11/29/23 08:34 Gabapentin 100 Mg Capsule PO 11/28/24 08:59 200 mg BID SOFY Administration Hydromorphone HCl 0.5 mg 11/28/23 22:58 Hydromorphone 0.5 Mg/0.5 Ml Syringe IV-PUSH Q4H PRN Pain Scale 8 - 10 Lactated Ringer's 1,000 mls @ 75 mls/hr 11/28/23 23:00 11/28/23 23:32 Lactated Ringers IV 11/30/23 01:39 75 mls/hr .[id number] SOFY Administration Ondansetron HCl 4 mg 11/28/23 22:58 Ondansetron 4 Mg/2 Ml Vial IV-PUSH 11/27/24 22:57 Q6H PRN Nausea And Vomiting Pantoprazole Sodium 40 mg 11/28/23 23:15 11/29/23 08:35 Pantoprazole 40 Mg Vial IV-PUSH 11/27/24 23:14 40 mg BID SOFY Administration Sodium Chloride 10 ml 11/28/23 22:58 11/29/23 08:35 Sodium Chloride 0.9 % 10 Ml Vial.Pf INJECTION 11/27/24 22:57 10 ml PRN PRN Administration Dilution Sodium Chloride 10 ml 11/28/23 22:58 Sodium Chloride 0.9 % 10 Ml Syringe IV-PUSH 11/27/24 22:57 PRN PRN Flush Sodium Chloride 0 ml 11/29/23 06:00 11/29/23 08:36 Sodium Chloride 0.9 % 10 Ml Syringe IV-PUSH 11/28/24 05:59 10 ml QSHIFT SOFY Administration Tamsulosin HCl 0.4 mg 11/29/23 09:00 11/29/23 08:35 Tamsulosin 0.4 Mg Cap.Er.24h PO 11/28/24 08:59 0.4 mg BID SOFY Administration A&P - Hospitalist Assessment/Plan (1) Diverticulosis: (2) Acute lower GI bleeding: (3) Diverticular hemorrhage: (4) Benign prostatic hyperplasia with lower urinary tract symptoms: (5) Urinary retention due to benign prostatic hyperplasia: Plan l Documented By: George Romero MD 11/29/23 1109 Signed By: <Electronically signed by George Romero MD> 11/29/23 1235 <Electronically signed by DO EVAN Brown> 11/29/23 1135 [facility] Work Phone: 1(935) 166-931505-02-2024 Progress note Author Asim Mathur [facility] November 29, 2023 12:29pm Note Date/Time November 29, 2023 12:29p [facility] [address] [place] [address] Gastroenterology PN Signed Patient: Rishi Babcock MR#: [id number] : 1940 Acct:[id number] Age/Sex: 83 / M Adm Date: 4 Loc: 4P Room: [address] [place] [address] Type: ADM IN Attending Dr: George Romero MD Copies to: MD Cameron Duffy DO Cameron J Ditty, MD~ Date of Service: 11/29/2023 Subjective Subjective Narrative: Patient has not had any further bowel movements. He is not having any urgency or tenesmus to go at all. It appears his bleeding has most likely stopped. We will hold off on a colonoscopy at this time. I would recommend monitoring his blood counts over night to make sure he does not equilibrate below 7, from a GI standpoint if he does not have any further bleeding he can be discharged tomorrow. We would recommend minimizing NSAID use as able as this increases risk for diverticular bleeding. He will not need an outpatient GI follow-up. Exam Physical Exam Vital Signs: Temp Pulse Resp BP Pulse Ox O2 Del Method 98.1 F 82 16 152/73 H 97 Room Air 11/29/23 08:00 11/29/23 08:00 11/29/23 08:00 11/29/23 08:00 11/29/23 08:00 11/29/23 08:00 Objective Allergies and Medications Allergies/Adverse Reactions: Allergies Allergy/AdvReac Type Severity Reaction Status Date / Time ciprofloxacin [From Cipro] Allergy Unknown Muscle Pain Verified 11/14/23 09:04 Active Meds: Active Medications Generic Name Dose Route Start Last Admin Trade Name Freq PRN Reason Stop Dose Admin Acetaminophen 1,000 mg 11/28/23 22:58 11/29/23 09:31 Acetaminophen 500 Mg Tablet PO 11/27/24 22:57 1,000 mg Q6HR PRN Administration Pain Scale 1 - 3 or fever Gabapentin 200 mg 11/29/23 09:00 11/29/23 08:34 Gabapentin 100 Mg Capsule PO 11/28/24 08:59 200 mg BID SOFY Administration Hydromorphone HCl 0.5 mg 11/28/23 22:58 Hydromorphone 0.5 Mg/0.5 Ml Syringe IV-PUSH Q4H PRN Pain Scale 8 - 10 Lactated Ringer's 1,000 mls @ 75 mls/hr 11/28/23 23:00 11/28/23 23:32 Lactated Ringers IV 11/30/23 01:39 75 mls/hr .[id number] SOFY Administration Magnesium Sulfate 4 gm in 100 mls @ 12.5 mls/hr 11/29/23 12:00 11/29/23 11:59 Magnesium Sulf 4 Gm-*Swfi* IV 11/29/23 19:59 12.5 mls/hr ONCE ONE Administration Ondansetron HCl 4 mg 11/28/23 22:58 Ondansetron 4 Mg/2 Ml Vial IV-PUSH 11/27/24 22:57 Q6H PRN Nausea And Vomiting Pantoprazole Sodium 40 mg 11/28/23 23:15 11/29/23 08:35 Pantoprazole 40 Mg Vial IV-PUSH 11/27/24 23:14 40 mg BID SOFY Administration Sodium Chloride 10 ml 11/28/23 22:58 11/29/23 08:35 Sodium Chloride 0.9 % 10 Ml Vial.Pf INJECTION 11/27/24 22:57 10 ml PRN PRN Administration Dilution Sodium Chloride 10 ml 11/28/23 22:58 Sodium Chloride 0.9 % 10 Ml Syringe IV-PUSH 11/27/24 22:57 PRN PRN Flush Sodium Chloride 0 ml 11/29/23 06:00 11/29/23 08:36 Sodium Chloride 0.9 % 10 Ml Syringe IV-PUSH 11/28/24 05:59 10 ml QSHIFT SOFY Administration Tamsulosin HCl 0.4 mg 11/29/23 09:00 11/29/23 08:35 Tamsulosin 0.4 Mg Cap.Er.24h PO 11/28/24 08:59 0.4 mg BID SOFY Administration A&P - Gastroenterology Assessment/Plan (1) Diverticular hemorrhage: Plan Patient has not had any further bowel movements. He is not having any urgency or tenesmus to go at all. It appears his bleeding has most likely stopped. We will hold off on a colonoscopy at this time. I would recommend monitoring his blood counts over night to make sure he does not equilibrate below 7, from a GI standpoint if he does not have any further bleeding he can be discharged tomorrow. We would recommend minimizing NSAID use as able as this increases risk for diverticular bleeding. He will not need an outpatient GI follow-up. You for this consult, I will peripherally follow Documented By: Asim Mathur MD 11/29/23 1226 Signed By: <Electronically signed by Asim Mathur MD> 11/29/23 9805 [facility] Work Phone: 1(202) 876-185005-02-2024 Consult note Author Asim Mathur [facility] November 29, 2023 8:31am Note Date/Time November 29, 2023 8:13am [facility] [address] [place] [address] Gastroenterology Consult Note Signed Patient: Rishi Babcock MR#: [id number] : 1940 Acct:[id number] Age/Sex: 83 / M Adm Date: 4 Loc: Room: [address] [place] [address] Type: ADM IN Attending Dr: George Romero MD Copies to: MD Cameron Duffy DO Cameron J Ditty, MD~ HPI Data of Consult Date of Consultation: 11/29/23 Requesting Physician: George Romero MD Consult Narrative History of present illness: Mr. Babcock is a 83 year old male who was transferred from outside hospital for diverticular bleed. Patient known to the GI service here and underwent a workupfor iron deficiency anemia by my partner Dr. Nguyễn last fall, only demonstratinggastric erosions, H. pylori negative. On Sunday night he noted urgency and hada bowel movement with maroon-colored blood. He continued to have several bowel movements with bright red and maroon-colored blood which prompted his visit to the ER. Ever had this before. He was having lots of urgency, some cramping andtenesmus. He was not having any other symptoms. Since arrival he has been hemodynamically stable. 4 to 5 g drop in hemoglobin from baseline. This morning he had 1 small bowel movement with a little bit of blood and formed stool. He is not having as much urgency and not having tenesmus at this time. cc:: CC: George Romero MD Review of Systems Constitutional Constitutional: Denies poor appetite and Denies weight loss Eyes Eyes: Denies change in vision and Denies eye discharge ENT Ears, Nose, Mouth, and Throat: Denies nasal discharge, Denies sore throat and Denies vertigo Cardiovascular Cardiovascular: Denies chest pain and Denies dyspnea on exertion Respiratory Respiratory: Denies chest congestion, Denies cough and Denies dyspnea on exertion Gastrointestinal Gastrointestinal: Reports as per HPI Musculoskeletal Musculoskeletal: Denies arthralgias, Denies muscle weakness and Denies numbness Integumentary/Breasts Skin/Breast: Denies change in pigmentation and Denies rash Neurologic Neurologic: Denies numbness and Denies vertigo Psychiatric Psychiatric: Denies anxiety and Denies depression Hematologic/Lymphatic Hematologic/Lymphatic: Denies easy bruising and Denies lymphadenopathy [facility] Medical History (Updated 11/29/23 @ 08:31 by Asim Mathur MD) Hypertension Chronic kidney disease (CKD) Lumbar spondylosis Hypercholesterolemia Atherosclerosis of [place] arteries of extremities with intermittent claudication, bilateral legs Unspecified atrial flutter Tongue lesion Supraventricular tachycardia Spondylosis without myelopathy or radiculopathy, lumbar region (04/05/17) Other spondylosis with myelopathy, lumbar region Other spondylosis with myelopathy, cervical region Other watermaster (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 Motor neuron disease Iron deficiency anemia due to chronic blood loss 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 Gross hematuria Gastroesophageal reflux disease with esophagitis without hemorrhage Feeling of incomplete bladder emptying Elevated PSA CTS (carpal tunnel syndrome) Cervical spondylosis with radiculopathy Carpal tunnel syndrome of left wrist Benign prostatic hyperplasia with lower urinary tract symptoms Tongue abnormality s/p removal varicose vein BPH (benign prostatic hyperplasia) H/O falling Myelopathy Arthritis A-fib Surgical History (Updated 11/28/23 @ 23:41 by Bárbara Ramirez APRN) History of carpal tunnel surgery of left wrist 10/2023 History of orthopedic surgery History of neck surgery History of tonsillectomy H/O prostate biopsy Status post middle ear reconstruction H/O removal of cyst History of cataract extraction H/O esophagogastroduodenoscopy History of cystoscopy History of colonoscopy History of ankle surgery right for fracture History of radiofrequency ablation procedure for cardiac arrhythmia Family History Mother Leukemia Cancer Father Heart problem Heart disease Brother Diabetes Sister Diabetes Brother Colon cancer Social History Smoking Status: Current every day smoker Tobacco Type: cigars Substance Use Type: None Substance Abuse Comment: mixed drink a couple times a week Meds Medications and Allergies Allergies ciprofloxacin [From Cipro] Allergy (Unknown, Verified 11/14/23 09:04) Muscle Pain Home Medications lisinopril 10 mg-hydrochlorothiazide 12.5 mg tablet 1 tab PO QAM htn 04/22/20 [History Confirmed 11/28/23] metoprolol succinate 25 mg tablet,extended release 24 hr 25 mg PO QAM 02/26/23 [History Confirmed 11/28/23] aspirin 81 mg tablet,delayed release (Adult Aspirin Regimen) 81 mg PO QAM 09/26/23 [History Confirmed 11/28/23] multivitamin 1 tab PO QHS 09/26/23 [History Confirmed 11/28/23] saw palmetto 450 mg capsule 450 mg PO BID 09/26/23 [History Confirmed 11/28/23] tamsulosin 0.4 mg capsule 0.4 mg PO BID 09/26/23 [History Confirmed 11/28/23] gabapentin 100 mg capsule 200 mg PO QAM AND QHS 10/24/23 [History Confirmed 11/28/23] omeprazole 40 mg capsule,delayed release 40 mg PO QAM 11/07/23 [History Confirmed 11/28/23] Exam Physical Exam Vital Signs: Temp Pulse Resp BP Pulse Ox O2 Del Method 98.4 F 77 18 128/61 97 Room Air 11/29/23 04:00 11/29/23 04:00 11/29/23 04:00 11/29/23 04:00 11/29/23 04:00 11/29/23 04:00 Const General: no acute distress and well developed HEENT Head: normocephalic and atraumatic Mouth: moist mucous membranes Eyes Sclera: sclerae normal (no scleral icterus) EOM: EOM intact bilaterally Neck Other: trachea midline Resp Effort & Inspection: normal respiratory effort and able to speak in complete sentences GI Inspection: normal to inspection and non-distended Palpation: soft and nontender Skin General: turgor normal and no jaundice Neuro General: patient alert and patient oriented x3 Psych Appearance: grossly normal Mental Status: mental status grossly normal Results - Gastroenterology Labs Labs: Laboratory Results - last 24 hr 11/28/23 11/28/23 11/29/23 23:26 23:36 01:16 Corrected WBC Uncorrected WBC Count RBC Hgb 11.0 L Hct 32.4 L MCV MCH MCHC RDW Plt Count MPV Neut % (Auto) Lymph % (Auto) [place] % (Auto) Eos % (Auto) Baso % (Auto) Nucleat RBC Rel Count Neut # (Auto) Lymph # (Auto) [place] # (Auto) Eos # (Auto) Baso # (Auto) PT INR APTT PHA Creatinine Clear Sodium Potassium Chloride Carbon Dioxide Anion Gap BUN Creatinine Est GFR (CKD-EPI) Glucose Calcium Magnesium Total Bilirubin Direct Bilirubin Indirect Bilirubin AST ALT Alkaline Phosphatase Total Protein Albumin Globulin Albumin/Globulin Ratio Blood Type O Negative Blood Type Recheck O Negative Antibody Screen Negative Crossmatch ([facility]) See Detail 11/29/23 04:08 Corrected WBC 7.3 Uncorrected WBC Count 7.3 RBC 3.14 L Hgb 10.4 L Hct 30.3 L MCV 96.4 MCH 33.1 MCHC 34.3 RDW 13.8 Plt Count 207 MPV 9.1 Neut % (Auto) 65.8 Lymph % (Auto) 22.7 [place] % (Auto) 9.2 Eos % (Auto) 1.6 Baso % (Auto) 0.7 Nucleat RBC Rel Count 0.1 Neut # (Auto) 4.8 Lymph # (Auto) 1.7 [place] # (Auto) 0.7 Eos # (Auto) 0.1 Baso # (Auto) 0.0 PT 11.5 INR 1.0 APTT 35.6 PHA Creatinine Clear 57.83 Sodium 139 Potassium 4.1 Chloride 105 Carbon Dioxide 27.3 Anion Gap 10.8 BUN 19 Creatinine 0.92 Est GFR (CKD-EPI) > 60.0 Glucose 83 Calcium 9.1 Magnesium 1.4 L Total Bilirubin 1.4 H Direct Bilirubin 0.20 H Indirect Bilirubin 1.2 AST 21 ALT 13 Alkaline Phosphatase 117 H Total Protein 5.4 L Albumin 3.6 Globulin 1.8 Albumin/Globulin Ratio 2.0 Blood Type Blood Type Recheck Antibody Screen Crossmatch ([facility]) A&P - Gastroenterology Assessment/Plan (1) Diverticulosis: (2) Acute lower GI bleeding: (3) Diverticular hemorrhage: Plan Presentation consistent with diverticular bleeding. He has a recent colonoscopyclearing him of other etiologies of lower GI bleeding such as malignancy. Bleeding has likely stopped already. -Resuscitation per primary team -Okay for clear liquid diet today, reevaluate for further bleeding later today -If he has continued bleeding we will plan to do prep and colonoscopy tomorrow Thank you for this consult, will follow Documented By: Asim Mathur MD 11/29/23 0811 Signed By: <Electronically signed by Asim Mathur MD> 11/29/23 0831 [facility] Work Phone: 1(175) 972-189305-02-2024 History and physical note Author Lane Carlos [facility] November 29, 2023 12:14am Note Date/Time November 28, 2023 11:13p m [facility] [facility] [address] [place] [address] Hospitalist H&P Signed Patient: Rishi Babcock MR#: [id number] : 1940 Acct:[id number] Age/Sex: 83 / M Adm Date: 4 Loc: 4 Room: [address] [place] [address] Type: ADM IN Attending Dr: Falguni Brasher MD Copies to: DO Lane Lundberg, MD Bárbara Adams, DETECTIVE~ HPI DATE OF EXAMINATION: 11/28/23 CHIEF COMPLAINT: bloody stools HISTORY OF PRESENT ILLNESS: Mr. Babcock is an 83-year-old male with a PMH of A-fib, abrasion years ago not on anticoagulation, severe polyneuropathy, HTN, iron deficiency anemia, GERD, SVT, spondylosis, tobacco dependence?daily cigar smoker that presented to the [facility] emergency room for bloody stools. Patient states that his bloody bowel movements began about 1130 last night, reports he went to have a bowel movement and noticed that the toilet was full of blood. He denies abdominal pain, chest pain, shortness of breath, fever or chills. Denies nauseaor vomiting. Reports she has had about 8-10 bloody bowel movements, they are loose with clots. He states he takes a baby aspirin every day and also uses ibuprofen 2-3 times a day, he reports usually 2 in the morning and 2 at night and sometimes will have 2 at lunch. He states he has never had a blood transfusion before, never had bloody bowel movements in the past. CT of the abdomen pelvis performed at the [facility] shows colonic diverticulosis with evidence of active bleeding involving the sigmoid colon diverticula, cholelithiasis, marked prostatomegaly and mild bladder wall hypertrophy, distal esophageal wall thickening, likely esophagitis, Paget's disease of the pelvis. EKG is sinus rhythm at 78 with a first-degree AVB, RBBB,no acute ST elevation. CBC with an H&H of 12.7/38, platelets 223. CBC was repeated at 1838, H&H 11.2/33.2, platelets 208. PT/INR was 10.8/1.02 CMP with aBUN of 23, creatinine 1.19, ALP 175. He was given a 1 L saline bolus over 2 hours and then saline was started at 100 mL an hour. GI was consulted here who accepted the patient as consult. Patient was transferred as inpatient to the floor progressive floor under the care of hospitalist team. Review of Systems Review of Systems Review of systems: A 10 point review of systems was obtained, negative unless noted in the HPI or below. [facility] Medical History (Updated 11/28/23 @ 23:36 by Bárbara Ramirez APRN) Hypertension Chronic kidney disease (CKD) Lumbar spondylosis Hypercholesterolemia Atherosclerosis of [place] arteries of extremities with intermittent claudication, bilateral legs Unspecified atrial flutter Tongue lesion Supraventricular tachycardia Spondylosis without myelopathy or radiculopathy, lumbar region (04/05/17) Other spondylosis with myelopathy, lumbar region Other spondylosis with myelopathy, cervical region Other mcfp (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 Motor neuron disease Iron deficiency anemia due to chronic blood loss 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 Gross hematuria Gastroesophageal reflux disease with esophagitis without hemorrhage Feeling of incomplete bladder emptying Elevated PSA CTS (carpal tunnel syndrome) Cervical spondylosis with radiculopathy Carpal tunnel syndrome of left wrist Benign prostatic hyperplasia with lower urinary tract symptoms Tongue abnormality s/p removal varicose vein BPH (benign prostatic hyperplasia) H/O falling Myelopathy Arthritis A-fib Surgical History (Updated 11/28/23 @ 23:41 by Bárbara Ramirez APRN) History of carpal tunnel surgery of left wrist 10/2023 History of orthopedic surgery History of neck surgery History of tonsillectomy H/O prostate biopsy Status post middle ear reconstruction H/O removal of cyst History of cataract extraction H/O esophagogastroduodenoscopy History of cystoscopy History of colonoscopy History of ankle surgery right for fracture History of radiofrequency ablation procedure for cardiac arrhythmia Family History Mother Leukemia Cancer Father Heart problem Heart disease Brother Diabetes Sister Diabetes Brother Colon cancer Social History Marital Status: Smoking Status: Current every day smoker Tobacco Type: cigars Substance Use Type: None Substance Abuse Comment: mixed drink a couple times a week Meds Medications and Allergies Allergies ciprofloxacin [From Cipro] Allergy (Unknown, Verified 11/14/23 09:04) Muscle Pain Home Medications lisinopril 10 mg-hydrochlorothiazide 12.5 mg tablet 1 tab PO QAM htn 04/22/20 [History Confirmed 11/28/23] metoprolol succinate 25 mg tablet,extended release 24 hr 25 mg PO QAM 02/26/23 [History Confirmed 11/28/23] aspirin 81 mg tablet,delayed release (Adult Aspirin Regimen) 81 mg PO QAM 09/26/23 [History Confirmed 11/28/23] multivitamin 1 tab PO QHS 09/26/23 [History Confirmed 11/28/23] saw palmetto 450 mg capsule 450 mg PO BID 09/26/23 [History Confirmed 11/28/23] tamsulosin 0.4 mg capsule 0.4 mg PO BID 09/26/23 [History Confirmed 11/28/23] gabapentin 100 mg capsule 200 mg PO QAM AND QHS 10/24/23 [History Confirmed 11/28/23] omeprazole 40 mg capsule,delayed release 40 mg PO QAM 11/07/23 [History Confirmed 11/28/23] Allergy/Medication Comments: Of note: The patient had been holding the aspirin 81 mg daily for about 2 weeks because of his recent carpal tunnel surgery. He took 1 dose of the aspirin and then began having the rectal bleeding. At home he also takes ibuprofen a couple pills 2 times a day fairly regularly. Exam Physical Exam Vital Signs: Temp Pulse Resp BP Pulse Ox O2 Del Method 98.6 F 82 16 136/68 95 Room Air 11/28/23 22:32 11/28/23 22:32 11/28/23 22:32 11/28/23 22:32 11/28/23 22:32 11/28/23 22:32 Narrative: CONST- Appears well -developed and well nourished. Pale HEAD - Normocephalic and atraumatic EENT-Sclera nonicteric, conjunctive are non-erythemic, moist oral mucosa, pharynx clear NECK-Supple, no cervical lymphadenopathy CARDIAC-normal rate, regular rhythm, S1 & S2. PULM-diminished without wheeze or rhonchi, RA, no accessory muscle use or cough noted ABD - Soft. Bowel sounds are normal. No distention. tenderness to lower abdomen, incontinent of moderate loose maroon stool with clots EXTREM-no edema BLE calves, nontender SKIN- W/D good turgor MS- MAEX4 spontaneously with equal with equal strength-generalized weakness, numbness to bilateral feet-walks with walker NEURO- A&Ox3 speech clear and tongue midline, equal facial symmetry, no focal motor deficits PSYCH-Mood, affect, and behavior appropriate Assessment & Plan Assessment/Plan (1) Acute lower GI bleeding: (2) Diverticulosis: (3) Idiopathic peripheral neuropathy: (4) Hypertension: Plan Acute lower GI bleed Diverticulosis ? Consult GI ? N.p.o. ? Protonix 40 mg IV twice daily ? Stat H&H ? CBC, BMP, hepatic panel, magnesium in a.m. ? No NSAIDs, hold low-dose aspirin Chronic conditions HTN?metoprolol, lisinopril/HCTZ BPH?tamsulosin Severe peripheral neuropathy?patient walks with walker due to numbness of bilateral feet History of A-fib?ablation?not on anticoagulation DVT PPx-SCDs, pharmacological therapy contraindicated due to GI bleed Diet order-n.p.o. CODE STATUS-DNR CCA without intubation as discussed with patient +++ +++ Of note: The patient tells me that he has had a lot of problems with neuropathy that affects both of his legs and this makes it difficult for him to control his defecation so he says that for many years he has been always having to contract his abdominal muscles in order to have a bowel movement. He believes that he had a colonoscopy within the last year or 2, and he describes getting an EGD and even a video capsule endoscopy. He cannot remember where he got them done but thinks it may have been in [place]. This patient was seen before midnight on November 27. My signature on this documentoccurred after midnight and in the database modeler hours of November 28 due to EHR document creation time. I personally saw this patient on the day of the encounter, reviewed the relevanthistory, performed the perla elements of the physical exam, and discussed and formulated the plan of care with the Nurse Practitioner, and I confirm the NursePractitioner's documentation as written. - - - Lane Carlos DO. Internal Medicine + Hospitalist attending physician. IP vs OBS Justification Based on differential dx, clinical care plan, and risk of adverse events, if untreated, in my clinical judgement this patient requires an acute care setting as: INPATIENT because of an expectation of an over 2 midnight stay. Estimated length of stay (# of days): 3 Documented By: Bárbara Ramirez APRN 11/28/23 2313 Signed By: <Electronically signed by AUSTEN Ramirez> 11/28/23 2357 <Electronically signed by Lane Carlos DO> 11/29/23 0014 [facility] Work Phone: 1(699) 147-291612-13-2023 Evaluation note* Encounter Date Diagnosis Assessment Notes Treatment Notes Treatment Clinical Notes Jun, Medicare annual wellness visit, subsequent (ICD-10 - Z00.00) Personalized health advice was given to the beneficiary including a written plan for screenings discussed and provided. Advanced care planning reviewed and/or information given as requested. Additional counseling was provided here today in regards to, [ ]. The above visit was performed by [ ], under direct supervision of [ ]. Document reviewed and amended by provider signed below. Jun, Primary hypertension (ICD-10 - I10) This patient is instructed to consume a healthy, low-fat, low-salt diet. They are also encouraged to continue exercise to achieve/maintain a normal BMI. Jun, Benign prostatic hyperplasia with lower urinary tract symptoms (ICD-10 - N40.1) Referred to - offered procedure but declined - symptoms tolerable at this time Jun, Feeling of incomplet e bladder emptying (ICD-10 - R39.14) Jun, Lumbosacral spondylosis with myelopathy (ICD-10 - M47.16) The patient is instructed to avoid bending, twisting or lifting. They are to use intermittent heat and ice as needed. They may schedule a massage or gentle manipulation. They may safely use Tylenol as needed. Jun, Cervical spondylosis with radiculopathy (ICD-10 - M47.22) ROM exercises, heat/ice and Tylenol. Jun, Gastroesophageal reflux disease with esophagitis without hemorrhage (ICD-10 - K21.00) Diet instructions: Smaller portions, avoid eating and laying flat, avoid eating or drinking prior to bedtime. Weight loss. PPI [employer] Other 12-03-2023 Evaluation note* Encounter Date Diagnosis Assessment Notes Treatment Notes Treatment Clinical Notes Jun, Primary hypertension (ICD-10 - I10) [employer] Other 2023 Evaluation note* Encounter Date Diagnosis Assessment Notes Treatment Notes Treatment Clinical Notes Feb, Dehydration (ICD-10 - E86.0) Instructed to increase fluid intake, minimum 48oz daily but closer to 64oz recommended. Monitor BP at home. Feb, Acute prostatitis without hematuria (ICD-10 - N41.0) He is experiencing symptoms that could be related to lower UTI Push fluids, minimum 48oz Initiate antibiotics Feb, Primary hypertension (ICD-10 - I10) This patient is instructed to consume a healthy, low-fat, low-salt diet. They are also encouraged to continue exercise to achieve/maintain a normal BMI. Restart Lisinopril and monitor BP at home. _update in couple weeks Feb, Acute superficial gastritis with hemorrhage (ICD-10 - K29.01) Completed EGD but report not available. d/c [place] 2 Instructed to avoid OTC NSAIDs Initiated on PPI by GI Feb, Benign prostatic hyperplasia with lower urinary tract symptoms (ICD-10 - N40.1) Continue treatment per Urology. f/u w/ Urology Feb, Feeling of incomplete bladder emptying (ICD-10 - R39.14) Continue Flomax and f/u w/ Urology Feb, Carpal tunnel syndrome of left wrist (ICD-10 - G56.02) Use cock up splints at night. Completed EMG w/ GILDA, recommend f/u appt. Gabapentin may be beneficial if not surgical condition Feb, Lumbosacral spondylosis with myelopathy (ICD-10 - M47.16) The patient is instructed to avoid bending, twisting or lifting. They are to use intermittent heat and ice as needed. They may schedule a massage or gentle manipulation. They may safely use Tylenol as needed. Fall precautions. Feb, Cervical spondylosis with radiculopathy (ICD-10 - M47.22) ROM exercises, heat/ice and Tylenol. f/u Neurology w/ suggestion w/ referral to Neurosurgery [facility] [email or web address] Other 07-31-2023 History and physical note Author Gene Nguyễn [facility] February 26, 2023 9:20am Note Date/Time February 26, 2023 9:20 am [facility] [address] [place] [address] Gastroenterology H&P Signed Patient: Rishi Babcock MR#: [id number] : 1940 Acct:[id number] Age/Sex: 82 / M Adm Date: 3 Loc: Room: Type: [facility] Attending Dr: Gene Nguyễn MD Copies to: Cameron Gaming,DO Gene Nguyễn MD~ Date of Service: 02/26/2023 HISTORY & PHYSICAL: Patient's history with special attention to the cardiovascular, pulmonary systems and the current problem was reviewed with the patient immediately prior to the procedure. Present medications and doses reviewed in the EMR. Allergies and pertinent laboratory tests were also reviewedat this time in the EMR. The physical examination, as below, was then performed. Indication, assessment and HPI: 82-year-old man with history of colonic polyps and family history of colon cancer( brother) here for EGD/colonoscopy for evaluation of iron deficiency anemia Family history of GI malignancy? Yes PHYSICAL EXAMINATION Mouth and Pharynx : Moist mucus membranes, normal dentition Cardiac: Regular rate, regular rhythm Pulmonary: Clear to auscultation bilaterally, no wheezing Neurological: Alert and oriented x3, no focal deficits noted Abdomen: Abdomen soft, non-tender REVIEW OF SYSTEMS Constitutional: Denies malaise, fevers Cardiovascular: Denies chest pain, palpitations Respiratory: Denies shortness of breath, wheezing Gastrointestinal: Per HPI Genitourinary: Denies dysuria, polyuria Musculoskeletal: Denies joint swelling, joint stiffness Neurological: Denies numbness, tingling Integumentary: Denies rashes, skin lesions Endocrine: Denies fatigue, weight loss Written informed consent obtained from the patient. Risks (including but not limited to perforation, infection, bloating, bleeding, need for emergent surgeryand loss of life), benefits and alternatives explained and questions answered. The patient verbalized understanding. Based on history patient is an appropriate candidate for the procedure. Gene Nguyễn M.D. Documented By: Gene Nguyễn MD 02/26/23918 Signed By: <Electronically signed by Gene Nguyễn MD> 02/26/23919 [facility] Work Phone: [phone]) 976-226007-31-2023 [facility] Evaluation note* Encounter Date Diagnosis Assessment Notes Treatment Notes Treatment Clinical Notes Jan, Superficial abrasion (ICD-10 - T14.8XXA) Keep clean Cleanse w/ soap and water Jan, Insect bite (nonvenomous), right lower leg, initial encounter (ICD-10 - S80.861A) Keep clean and dry Jan, Bitten or stung by nonvenomous insect and other nonvenomous arthropods, initial encounter (ICD-10 - W57.XXXA) Tick vs spider bite Treat w/ antibiotics for [employer] Other 06-06-2023 Evaluation note* Encounter Date Diagnosis Assessment Notes Treatment Notes Treatment Clinical Notes Dec, Primary hypertension (ICD-10 - I10) This patient is instructed to consume a healthy, low-fat, low-salt diet. They are also encouraged to continue exercise to achieve/maintain a normal BMI. Dec, Iron deficiency anemia due to chronic blood loss (ICD-10 - D50.0) No obvious source of bleeding. Overdue for screening colonoscopy - last scope in 2016 w/ recommendations to repeat in 5 years Recommend EGD to r/o PUD, gastritis or esophagitis Dec, Lumbosacral spondylosis with radiculopathy (ICD-10 - M47.27) f/u Neurology Completed MRI cervical/lumbar spine Completed UE/LE EMG/NCS Fall precautions, recommend use of cane/walker for stability Dec, Benign prostatic hyperplasia with lower urinary tract symptoms (ICD-10 - N40.1) Discussed increasing Flomax to bid. f/u Urology Dec, Feeling of incomplete bladder emptying (ICD-10 - R39.14) Discussed surgical treatment, which may result in worsening incontinence. Difficult decision. Dec, Gross hematuria (ICD-10 - R31.0) Completed cystoscopy, no explanation for gross hematuria Dec, Elevated PSA (ICD-10 - R97.20) MRI w/o suspicious nodule. 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 Trial of splints failed to control symptoms Experiencing weakness in spinning bath patroller Dec, Cervical spondylosis with radiculopathy (ICD-10 - M47.22) ROM exercises, heat/ice and Tylenol/Celebrex [employer] Other 04-05-2023 Evaluation note* Encounter Date Diagnosis Assessment Notes Treatment Notes Treatment Clinical Notes Oct, Iron deficiency anemia due to chronic blood loss (ICD-10 - D50.0) Monitor for s/s GI bleed. Plan EGD and colonoscopy later this summer. Recommend d/c NSAIDs and COX2 and use Tylenol for pain Oct, Primary hypertension (ICD-10 - I10) This patient is instructed to consume a healthy, low-fat, low-salt diet. They are also encouraged to continue exercise to achieve/maintain a normal BMI. Oct, Lumbosacral spondylosis with radiculopathy (ICD-10 - M47.27) The patient is instructed to avoid bending, twisting or lifting. They are to use intermittent heat and ice as needed. They may schedule a massage or gentle manipulation. They may safely use Tylenol as needed. Oct, Cervical spondylosis with myelopathy (ICD-10 - M47.12) ROM exercises, ice/heat and Tylenol Oct, Benign prostatic hyperplasia with lower urinary tract symptoms (ICD-10 - N40.1) Continue Flomax Awaiting MRI and cystoscopy report. Discussed BPH and treatment: Rx meds, Rezum, Urolift and TURP Discussed prostate cancer: MRI/bx and Meeteetse score/grouping and treatment options Oct, Elevated PSA (ICD-10 - R97.20) BPH vs Prostate cancer discussed. 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 His gait is antalgic he really clearly does not know where his feet are in space when he ambulates.We will send the patient back to Dr. Orellana for formal evaluation and continued treatment and then we can make a decision if he would benefit from a decompressive lumbar laminectomy. 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 Clearly this could be contributing to his lower extremity symptoms. 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 In addition to this the patient has evidence of a peripheral neuropathy with loss of vibratory sensation and position sense. Patient also relates feel like he cannot contract his anal sphincter although he has had no loss of bowel bladder function. Because of all those things I think it is imperative the patient have an EMG and nerve conduction study of the least of the left lower extremity as well as a lumbar MRI and we will see him back in the office at that time. Jul, Idiopathic peripheral neuropathy (ICD-10 - G60.9) [facility] [email or web address] Other evaluation noteNo InformationNortGeising[facility] [email or web address] Other Evaluation noteNo assessment information available [facility] Work Phone: Evaluation note* Diagnosis Onset Date Resolution Status Benign prostatic hyperplasia with lower urinary tract symptoms acute Cervical spondylosis with radiculopathy acute Chronic kidney disease (CKD) acute CTS (carpal tunnel syndrome) acute Left foot drop acute Lumbar spondylosis acute Sacroiliac inflammation acut e Severe carpal tunnel syndrome of both wrists acute Spondylolisthesis, lumbar region acute [facility] Work Phone: Evaluation note* Diagnosis Onset Date Resolution Status Benign prostatic hyperplasia with lower urinary tract symptoms acute Cervical spondylosis with radiculopathy acute Chronic kidney disease (CKD) acute CTS (carpal tunnel syndrome) acute Left foot drop acute Lumbar spondylosis acute Sacroiliac inflammation acut e Severe carpal tunnel syndrome of both wrists acute Spondylolisthesis, lumbar region acute CTS (carpal tunnel syndrome) acute Severe carpal tunnel syndrome of both wrists acute Carpal tunnel syndrome of left wrist acute Pre-operative cardiovascular examination acute [facility] Work Phone: Evaluation note* Diagnosis Onset Date Resolution Status Benign prostatic hyperplasia with lower urinary tract symptoms acute Cervical spondylosis with radiculopathy acute Chronic kidney disease (CKD) acute CTS (carpal tunnel syndrome) acute Left foot drop acute Lumbar spondylosis acute Sacroiliac inflammation acut e Severe carpal tunnel syndrome of both wrists acute Spondylolisthesis, lumbar region acute CTS (carpal tunnel syndrome) acute Severe carpal tunnel syndrome of both wrists acute Carpal tunnel syndrome of left wrist acute Pre-operative cardiovascular examination acute A-fib acute Acute lower GI bleeding acut e Benign prostatic hyperplasia with lower urinary tract symptoms acute Chronic kidney disease (CKD) acute Diverticular hemorrhage acut e Diverticulosis acute Elevated PSA acute Hypertension acute Idiopathic peripheral neuropathy acute Urinary retention due to benign prostatic hyperplasia acute [facility] Work Phone: Evaluation note* Diagnosis Onset Date Resolution Status Benign prostatic hyperplasia with lower urinary tract symptoms acute Cervical spondylosis with radiculopathy acute Chronic kidney disease (CKD) acute CTS (carpal tunnel syndrome) acute Left foot drop acute Lumbar spondylosis acute Sacroiliac inflammation acut e Severe carpal tunnel syndrome of both wrists acute Spondylolisthesis, lumbar region acute CTS (carpal tunnel syndrome) acute Severe carpal tunnel syndrome of both wrists acute Carpal tunnel syndrome of left wrist acute A-fib acute Acute lower GI bleeding acut e Benign prostatic hyperplasia with lower urinary tract symptoms acute Chronic kidney disease (CKD) acute Diverticular hemorrhage acut e Diverticulosis acute Elevated PSA acute Hypertension acute Idiopathic peripheral neuropathy acute Urinary retention due to benign prostatic hyperplasia acute Acute blood loss anemia acut e Benign prostatic hyperplasia with lower urinary tract symptoms acute Chronic kidney disease (CKD) acute Diverticular hemorrhage acut e Hypertension acute [facility] Work Phone: Evaluation note* Diagnosis Onset Date Resolution Status CTS (carpal tunnel syndrome) acute Severe carpal tunnel syndrome of both wrists acute Carpal tunnel syndrome of left wrist acute Acute lower GI bleeding reso lved Benign prostatic hyperplasia with lower urinary tract symptoms resolved Diverticular hemorrhage reso lved Acute blood loss anemia acut e Nausea & vomiting acute Benign prostatic hyperplasia with lower urinary tract symptoms resolved Diverticular hemorrhage reso lved Acute blood loss anemia acut e Nausea & vomiting acute Benign prostatic hyperplasia with lower urinary tract symptoms resolved [facility] Work Phone: Evaluation note* Diagnosis Onset Date Resolution Status Acute blood loss anemia acut e Benign prostatic hyperplasia with lower urinary tract symptoms acute Hypertension acute Lumbar spondylosis with myelopathy acute Hypertension acute Left shoulder pain acute Primary osteoarthritis, left shoulder acute [facility] Work Phone: History general Narrative - Reported* Type Description Date Medical History hypertension Medical History Arthritis Medical History Atrial fibrillation Surgical History cataract extraction Surgical History colonoscopy Surgical History cyst removal Surgical History prostate biopsy Surgical History ear reconstruction Surgical History leg surgery, fx RT distal tib/f ib Surgical History tonsillectomy Surgical History colonoscopy 05/2017 Surgical History e/o tongue lesion, Timmis 019 Hospitalization History See Above [facility] Other History general Narrative - Reported* Type Description Date Medical History hypertension Medical History Arthritis Medical History Atrial fibrillation Surgical History cataract extraction Surgical History colonoscopy Surgical History cyst removal Surgical History prostate biopsy Surgical History ear reconstruction Surgical History leg surgery, fx RT distal tib/f ib Surgical History tonsillectomy Surgical History colonoscopy 05/2017 Surgical History e/o tongue lesion, Timmis 019 Surgical History Cystoscopy 09/2022 Hospitalization History See Above [facility] Other [place] general Narrative - ReportedNort Gather Other Hisrebc general Narrative - Reported* Type Description Date Medical History hypertension Medical History Arthritis Medical History Atrial fibrillation Surgical History cataract extraction Surgical History colonoscopy Surgical History cyst removal Surgical History prostate biopsy Surgical History ear reconstruction Surgical History leg surgery, fx RT distal tib/f ib Surgical History tonsillectomy Surgical History colonoscopy 05/2017 Surgical History e/o tongue lesion, Timmis 019 Surgical History Cystoscopy 09/2022 Surgical History EGD 01/2023 Surgical History Colonoscopy 01/2023 Hospitalization History See Above [facility] Other Hospital Discharge instructions Additional Instructions DISCHARGE INSTRUCTIONS FOR UPPER ENDOSCOPY WHAT TO EXPECT: - You may feel full, gassy or cramping after your procedure. In some cases, this may be from a few hours to a day. Walking may help relieve the discomfort. - Your throat may feel sore today from the scope that the doctor passed through your throat to visualize your stomach. Take a throat lozenge or suck on ice to ease the discomfort. - You may notice some streaks of blood in your sputum if the doctor has taken a biopsy. - You should begin to recover from anesthesia within 1 hour of the procedure, however may feel groggy for the next 24 hours. DO's AND DON'Ts: - Call your doctor right away if you have a hard abdomen, severe pain, vomiting or if you cough up large amounts of blood. - Call your doctor if you develop any rashes, hives or difficulty breathing. - If you take 81 mg aspirin for your heart it is safe to resume this medication. - If you take other blood thinner medications your doctor will instruct you when these can safely be resumed. - Do NOT drive for 24 hours. - Do NOT operate machinery such as power tools, lawn mowers, snow blowers, sewing machines, etc. for 24 hours. - Avoid alcoholic beverages and drugs for allergies, nerves, or sleep. - Do NOT stay alone. Do NOT leave your child unattended. - Do NOT make important personal or business decisions or sign any legal documents. - Eat solid foods and drink liquids in smaller amounts than usual until normal appetite returns. If you should experience an upset stomach, liquids high in sugar content (soda, Supa-Aid, non-acid juices) are recommended. - Do NOT smoke. - Do take it easy today. You need not stay in bed, but avoid strenuous activities such as jogging or working out. DISCHARGE INSTRUCTIONS FOR COLONOSCOPY WHAT TO EXPECT: - You may feel full, gassy or cramping after your procedure. In some cases, this may be from a few hours to a day. Walking may help relieve the discomfort. - If you have polyp(s) removed you may note some minor bloody discharge after your first bowel movements. - You should begin to recover from anesthesia within 1 hour of the procedure, however may feel groggy for the next 24 hours. DO's AND DON'Ts: - Call your doctor right away if you have a hard abdomen, sever pain, are passing lots of bright red blood or clots. - Call your doctor if you develop any rashes, hives or difficulty breathing. - Let your doctor know if you have not had a bowel movement by 3 days after your procedure. - If you take 81 mg aspirin for your heart it is safe to resume this medication. - If you take other blood thinner medications your doctor will instruct you when these can safely be resumed. - Do NOT drive for 24 hours. - Do NOT operate machinery such as power tools, [employer] mowers, [employer], sewing machines, etc. for 24 hours. - Avoid alcoholic beverages and drugs for allergies, nerves, or sleep. - Do NOT stay alone. Do NOT leave your child unattended. - Do NOT make important personal or business decisions or sign any legal documents. - Eat solid foods and drink liquids in smaller amounts than usual until normal appetite returns. If you should experience an upset stomach, liquids high in sugar content (soda, Supa-Aid, non-acid juices) are recommended. - You can resume normal activities tomorrow. FOLLOW UP & RECOMMENDATIONS: -Notify the doctor if you have any problems. -Follow up pathology -Start omeprazole 40 mg daily 30 minutes before breakfast [facility] Work Phone: Hospital Discharge instructions Additional Instructions DISCHARGE INSTRUCTIONS FOR CARPAL TUNNEL RELEASE DIET -No restrictions unless diabetic or cardiac patient ACTIVITY -Activity as tolerated -Use hand is much as possible. -May drive in the a.m. as tolerated; may ride in car -Remove the white dressing 48 hours after surgery -Keep incision clean and dry, when showering place a bag with a rubber band over the operative area -Apply small amount of antibiotic ointment 1 time daily to wound after dressing is off OTHER -Call your physician's office for any fever, chills, nausea, vomiting, drainage, or headache. -Please call your physician's office and make an appointment to see your physician in two weeks. [ ][facility] Work Phone: Reason for referral (narrative)* Reason *Waiting for appt Referral for screening colonoscopy and EGD Diagnosis 1 Iron deficiency anem ia due to chronic blood loss (D50.0) Diagnosis 2 Colon cancer screeni ng (Z12.11) Referral Organization [facility] Referring Provider First Name Cameron Referring Provider Last Name Mekhi Referring Provider Specialty Internal Me dicine Referred Organization [facility] Referred Provider Gene Nguyễn Referred Address [address], [place],[address] Referred Provider Specialty Gastroentero logy Referral Priority Routine General Notes Patient being referr ed for colonoscopy and EGD. His last colonoscopy was in 2017 w/ polypectomy and recommendations for repeat colonoscopy in 5 years. He has mild iron deficiency anemia and am recommending EGD to r/o gastritis, PUD or esophagitis. He denies change in appetite, weight or bowel habits. He denies N/V, daily heartburn or dysphagia. He denies melena or hematochezia Dianna Weaver 01/03/2023 12:47:36 PM >received today, sent P2P Enjoy[facility] Other Reason for Referral Reason Evaluate LLE EM G Diagnosis 1 Idiopathic periphera l neuropathy (G60.9) Referral Organization [facility] u[facility] Referring Provider First Name Hiren Referring Provider Last Name Rekha Referring Provider Specialty Neurosurger y Referred Organization [facility] Referred Provider Syed Ireland Referred Address [address], [place],[address] Referred Provider Specialty Neurology Referral Priority Routine General Notes Geri Garayh 12/2021 11:59:35 AM >Received today will send once note is locked Reason Evaluate and Tr eat Diagnosis 1 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) Referral Organization [facility] Referring Provider First Name Hiren Referring Provider Last Name Raydesmondgavin Referring Provider Specialty Neurosurger y Referred Organization [facility] Referred Provider Raul Orellana Referred Address [address], [place],[address] Referred Provider Specialty Neurology Referral Priority Routine General Notes Chelle Garcia 022 02:51:14 PM >Received today and waiting for office notes to be locked Summary Purpose Family History Relationship Condition Age at Onset Recorded Date/T garcia Not Specified Leukemia Unknown father Heart problem Unknown brother Diabetes mellitus Unknown sister Diabetes mellitus Unknown brother Malignant neoplasm of colon Unknown Relationship Condition Age at Onset Recorded Date/T garcia Not Specified Leukemia Unknown father Heart problem Unknown brother Diabetes mellitus Unknown sister Diabetes mellitus Unknown brother Malignant neoplasm of colon Unknown father Heart disease Unknown Unknown Not Specified Unknown Malignant neoplasm Unknown Leukemia Unknown Relationship Condition Age at Onset Recorded Date/T garcia Not Specified Leukemia Unknown Malignant neoplasm Unknown Unknown father Heart problem Unknown Heart disease Unknown brother Diabetes mellitus Unknown sister Diabetes mellitus Unknown brother Malignant neoplasm of colon Unknown Relationship Condition Age at Onset Recorded Date/T garcia mother Leukemia Unknown Malignant neoplasm Unknown Unknown father Heart problem Unknown Heart disease Unknown brother Diabetes mellitus Unknown sister Diabetes mellitus Unknown brother Malignant neoplasm of colon Unknown Advance Directives Advance Directive Response Recorded Date/ Time Advance Directives No January 11 2:49pm Chief Complaint and Reason for Visit Chief Complaint Iron Deficiency Anem ia, Screening Chief Complaint Check Up Ref Dr Gaming, spondylosis and carpal tunnel m43.16 m47.816 Reason for Visit Benign prostatic hyp erplasia with lower urinary tract symptoms Cervical spondylosis with radiculopathy Chronic kidney disease (CKD) CTS (carpal tunnel syndrome) Left foot drop Lumbar spondylosis Sacroiliac inflammation Severe carpal tunnel syndrome of both wrists Spondylolisthesis, lumbar region Chief Complaint Check Up Ref Dr Gaming, spondylosis and carpal tunnel m43.16 m47.816 f/u left CTR Reason for Visit Benign prostatic hyp erplasia with lower urinary tract symptoms Cervical spondylosis with radiculopathy Chronic kidney disease (CKD) CTS (carpal tunnel syndrome) Left foot drop Lumbar spondylosis Sacroiliac inflammation Severe carpal tunnel syndrome of both wrists Spondylolisthesis, lumbar region Chief Complaint Check Up Ref Dr Gaming spondylosis and carpal tunnel m43.16 m47.816 f/u left CTR Surgical Clearance for Carpal Tunnel Surgery 11/15 Reason for Visit Benign prostatic hyp erplasia with lower urinary tract symptoms Cervical spondylosis with radiculopathy Chronic kidney disease (CKD) CTS (carpal tunnel syndrome) Left foot drop Lumbar spondylosis Sacroiliac inflammation Severe carpal tunnel syndrome of both wrists Spondylolisthesis, lumbar region CTS (carpal tunnel syndrome) Severe carpal tunnel syndrome of both wrists Carpal tunnel syndrome of left wrist Pre-operative cardiovascular examination Chief Complaint Check Up Ref Dr Gaming spondylosis and carpal tunnel m43.16 m47.816 f/u left CTR Surgical Clearance for Carpal Tunnel Surgery 11/15 Carpal Tunnel Syndrome Reason for Visit Benign prostatic hyp erplasia with lower urinary tract symptoms Cervical spondylosis with radiculopathy Chronic kidney disease (CKD) CTS (carpal tunnel syndrome) Left foot drop Lumbar spondylosis Sacroiliac inflammation Severe carpal tunnel syndrome of both wrists Spondylolisthesis, lumbar region CTS (carpal tunnel syndrome) Severe carpal tunnel syndrome of both wrists Carpal tunnel syndrome of left wrist Pre-operative cardiovascular examination Chief Complaint Check Up Ref Dr Gaming spondylosis and carpal tunnel m43.16 m47.816 f/u left CTR Surgical Clearance for Carpal Tunnel Surgery 11/15 Carpal Tunnel Syndrome Carpal Tunnel Syndrome Reason for Visit Benign prostatic hyp erplasia with lower urinary tract symptoms Cervical spondylosis with radiculopathy Chronic kidney disease (CKD) CTS (carpal tunnel syndrome) Left foot drop Lumbar spondylosis Sacroiliac inflammation Severe carpal tunnel syndrome of both wrists Spondylolisthesis, lumbar region CTS (carpal tunnel syndrome) Severe carpal tunnel syndrome of both wrists Carpal tunnel syndrome of left wrist Pre-operative cardiovascular examination Chief Complaint Check Up Ref Dr Gaming spondylosis and carpal tunnel m43.16 m47.816 f/u left CTR Surgical Clearance for Carpal Tunnel Surgery 11/15 Carpal Tunnel Syndrome Carpal Tunnel Syndrome Rectal bleed/divertivular bleed Rectal bleed/divertivular bleed Reason for Visit Benign prostatic hyp erplasia with lower urinary tract symptoms Cervical spondylosis with radiculopathy Chronic kidney disease (CKD) CTS (carpal tunnel syndrome) Left foot drop Lumbar spondylosis Sacroiliac inflammation Severe carpal tunnel syndrome of both wrists Spondylolisthesis, lumbar region CTS (carpal tunnel syndrome) Severe carpal tunnel syndrome of both wrists Carpal tunnel syndrome of left wrist Pre-operative cardiovascular examination A-fib Acute lower GI bleeding Benign prostatic hyperplasia with lower urinary tract symptoms Chronic kidney disease (CKD) Diverticular hemorrhage Diverticulosis Elevated PSA Hypertension Idiopathic peripheral neuropathy Urinary retention due to benign prostatic hyperplasia Chief Complaint Check Up Ref Dr Gaming, spondylosis and carpal tunnel m43.16 m47.816 f/u left CTR Surgical Clearance for Carpal Tunnel Surgery 11/15 Carpal Tunnel Syndrome Carpal Tunnel Syndrome Rectal bleed/divertivular bleed Rectal bleed/divertivular bleed Amb Documentation [facility] [place] Reason for Visit Benign prostatic hyp erplasia with lower urinary tract symptoms Cervical spondylosis with radiculopathy Chronic kidney disease (CKD) CTS (carpal tunnel syndrome) Left foot drop Lumbar spondylosis Sacroiliac inflammation Severe carpal tunnel syndrome of both wrists Spondylolisthesis, lumbar region CTS (carpal tunnel syndrome) Severe carpal tunnel syndrome of both wrists Carpal tunnel syndrome of left wrist A-fib Acute lower GI bleeding Benign prostatic hyperplasia with lower urinary tract symptoms Chronic kidney disease (CKD) Diverticular hemorrhage Diverticulosis Elevated PSA Hypertension Idiopathic peripheral neuropathy Urinary retention due to benign prostatic hyperplasia Acute blood loss anemia Benign prostatic hyperplasia with lower urinary tract symptoms Chronic kidney disease (CKD) Diverticular hemorrhage Hypertension Chief Complaint f/u left CTR Surgical Clearance for Carpal Tunnel Surgery 11/15 Carpal Tunnel Syndrome Carpal Tunnel Syndrome Rectal bleed/divertivular bleed Rectal bleed/divertivular bleed Amb Documentation [facility] 6 month follow up Reason for Visit CTS (carpal tunnel s yndrome) Severe carpal tunnel syndrome of both wrists Carpal tunnel syndrome of left wrist Acute lower GI bleeding Benign prostatic hyperplasia with lower urinary tract symptoms Diverticular hemorrhage Acute blood loss anemia Nausea & vomiting Benign prostatic hyperplasia with lower urinary tract symptoms Diverticular hemorrhage Acute blood loss anemia Nausea & vomiting Benign prostatic hyperplasia with lower urinary tract symptoms Chief Complaint 6 month follow up left shoulder injection Reason for Visit Acute blood loss ane kalen Benign prostatic hyperplasia with lower urinary tract symptoms Hypertension Lumbar spondylosis with myelopathy Hypertension Left shoulder pain Primary osteoarthritis, left shoulder Additional Source Comments REASON FOR VISIT (unrecogniz ed section and content) unsteady gait, pain in feet, numbness in toes and handsMRI AND EMG RESULTSLab WorkNo Informationlab results6 MONTH FOLLOW UPspot on legNo InformationNo InformationPosting sheetNo InformationTBHGASTRO UPDATENo Informationwellness (unrecognized sect ion and content) No Status Records FoundNo Status Records FoundNo Status Records Found INFORMATION SOURCE (unrecogn ized section and content) DATE CREATED AUTHOR 11/03/2022 [facility] DATE CREATED AUTHOR AUTHOR'S ORGANIZ ATION 01/05/2024 [facility] DATE CREATED AUTHOR 'S ORGANIZ ATION 02/13/2024 [facility] Care Teams (unrecognized sec tion and content) Team Status: Active Member Role Status Mariaelena Gaming DO Primary Care Provider Active Team Status: Active Member Role Status Mariaelena Gaming DO Primary Care Provide r, Attending Provider Active Start: January 02, 2024 Team Status: Inactive Member Role Status Mariaelena Gaming DO Primary Care Provide r, Attending Provider Active Start: January 11, 2024 End: January 11, 2024 Team Status: Inactive Member Role Status Mariaelena Gaming DO Primary Care Provide r, Attending Provider Active Start: March 28, 2024 End: March 28, 2024 Team Status: Active Member Role Status Mariaelena Gaming DO Primary Care Provider Active Team Status: Inactive Member Role Status Mariaelena Gaming DO Primary Care Provider Active Gene Nguyễn MD Attending Provider Active Team Status: Inactive Member Role Status Mariaelena Gaming DO Primary Care Provide r, Attending Provider Active Start: September 26, 2023 End: September 26, 2023 Team Status: Inactive Member Role Status Mariaelena Gaming DO Primary Care Provider Active Start: October 10, 2023 End: October 10, 2023 LUKE Patel Attending Provider Active Start: October 10, 2023 End: October 10, 2023 Team Status: Inactive Member Role Status Mariaelena Gaming DO Primary Care Provider Active Start: October 11, 2023 End: October 11, 2023 LUKE Patel Attending Provider Active Start: October 11, 2023 End: October 11, 2023 Team Status: Inactive Member Role Status Dates Cameron Gaming DO Primary Care Provider Active Start: October 18, 2023 End: October 18, 2023 John Adam MD Attending Provider Active Star t: October 18, 2023 End: October 18, 2023 Team Status: Inactive Member Role Status Dates Cameron Gaming DO Primary Care Provider Active Start: October 24, 2023 End: October 24, 2023 Sushil Goodman MD Attending Provider Activ e Start: October 24, 2023 End: October 24, 2023 John Adam MD Referring Provider Active Star t: October 24, 2023 End: October 24, 2023 Team Status: Active Member Role Status Mariaelena Gaming DO Primary Care Provider Active Start: October 24, 2023 Sushil Goodman MD Attending Provider Activ e Start: October 24, 2023 Team Status: Inactive Member Role Status Mariaelena Gaming DO Primary Care Provider Active Start: October 24, 2023 End: October 24, 2023 Sushil Goodman MD Attending Provider Activ e Start: October 24, 2023 End: October 24, 2023 Team Status: Inactive Member Role Status Mariaelena Gaming DO Primary Care Provider Active Start: November 07, 2023 End: November 07, 2023 John Adam MD Attending Provider Active Star t: November 07, 2023 End: November 07, 2023 Team Status: Inactive Member Role Status Mariaelena Gaming DO Primary Care Provider Active Start: November 14, 2023 End: November 14, 2023 John Adam MD Attending Provider Active Star t: November 14, 2023 End: November 14, 2023 Team Status: Active Member Role Status Mariaelena Gaming DO Primary Care Provider Active Start: November 14, 2023 John Adam MD Attending Provider, Other Provider A ctive Start: November 14, 2023 Team Status: Active Member Role Status Mariaelena Gaming DO Primary Care Provider Active Start: November 28, 2023 Catie Sanches PA-C Attending Provider Active Start: November 28, 2023 Team Status: Inactive Member Role Status Mariaelena Gaming DO Primary Care Provider Active Start: November 28, 2023 End: December 01, 2023 Lane Carlos , DO Admit Provider Active Start: November 28, 2023 End: December 01, 2023 George Romero MD Attending Provider Active St art: November 28, 2023 End: December 01, 2023 Asim Mathur MD Other Provider Active Start : November 28, 2023 End: December 01, 2023 Syed Buchanan MD Other Provider Active S tart: November 28, 2023 End: December 01, 2023 Team Status: Active Member Role Status Mariaelena Gaming DO Primary Care Provider Active Start: November 29, 2023 Lane Carlos , DO Admit Provider Active Start: November 29, 2023 George Romero MD Other Provider Active Start: November 29, 2023 Asim Mathur MD Attending Provider Active S tart: November 29, 2023 Team Status: Active Member Role Status Mariaelena Gaming DO Primary Care Provider Active Start: December 04, 2023 BRENT Calloway Attending Provider Active St art: December 04, 2023 Team Status: Inactive Member Role Status Mariaelena Gmaing DO Primary Care Provide r, Attending Provider Active Start: December 06, 2023 End: December 06, 2023 Team Status: Active Member Role Status Mariaelena Gaming DO Primary Care Provider Active Start: November 29, 2023 End: December 01, 2023 Lane Carlos , DO Admit Provider Active Start: November 29, 2023 End: December 01, 2023 George Romero MD Other Provider Active Start: November 29, 2023 End: December 01, 2023 Asim Mathur MD Attending Provider Active S tart: November 29, 2023 End: December 01, 2023 Team Status: Active Member Role Status Mariaelena Gaming DO Primary Care Provide r, Attending Provider Active Start: January 02, 2024 Team Status: Inactive Member Role Status Mariaelena Gaming DO Primary Care Provide r, Attending Provider Active Start: January 11, 2024 End: January 11, 2024 Team Status: Inactive Member Role Status Mariaelena Gaming DO Primary Care Provide r, Attending Provider Active Start: March 28, 2024 End: March 28, 2024 Goals (unrecognized section and content) Goals may be documented in a n alternate section FOR RECORDS PERTAINING TO PATIENTS WHO ARE OR HAVE BEEN ENROLLED IN A CHEMICAL DEPENDENCY/SUBSTANCEABUSE PROGRAM, SOME INFORMATION MAY BE OMITTED. This clinical summary was aggregated from multiple sources. Caution should be exercised in using it in the provision of clinical care. This summary normalizes information from multiple sources, and as a consequence, information in this document may materially change the coding, format and clinical context of patient data. In addition, data may be omitted in some cases. CLINICAL DECISIONS SHOULD BE BASED ON THE PRIMARY CLINICAL RECORDS. [facility]. provides no warranty or guarantee of the accuracy or completeness of information in this document.
--- NOTE | 2024-04-13 14:19 | CT_ITS ---
The [address] [address] Patient Name: JESÚS BARR MRN: [id number] date: 1940 Sex: M Assigned Patient Location: ER Current Patient Location: ER Accession/Order Number: [id number] Exam Date: 04/13/2024 15:05 Report Date: 04/13/2024 15:48 At the request of: AN MARINO Procedure: CT lumbar spine wo con CT LUMBAR SPINE WITHOUT CONTRAST. HISTORY: Left paralumbar back pain with history of Paget's COMPARISON: CT abdomen/pelvis dated 11/28/2023 TECHNIQUE: CT of the lumbar spine without contrast. Sagittal and coronal reformatted images created. FINDINGS: BONY ALIGNMENT: There is normal lumbar lordosis. Stable mild grade 1 anterolisthesis at L5-S1 secondary to chronic bilateral L5 pars defects. Redemonstrated sclerotic changes of the sacrum consistent with Paget's disease. VERTEBRAL BODY: No acute fracture of the lumbar vertebral bodies. There is severe multilevel degenerative spondylosis most notable at L2-3 similar to prior study. CENTRAL CANAL/NEURAL FORAMINA: Stable moderate to severe L2-3 and L3-4 central canal stenosis secondary to disc ossify complex and ligamentum flavum thickening. Stable moderate to severe multilevel bilateral neural foraminal stenosis most notable at L5-S1 bilaterally and L3-4 on the left. SOFT TISSUE: No mass or inflammation. VISUALIZED ABDOMEN/PELVIS: Cholelithiasis without evidence of acute cholecystitis. There is mild bladder wall thickening. CT/CT lumbar spine wo con IMPRESSION: 1. No acute osseous abnormality of the lumbar spine. 2. Stable moderate to severe L2-L3 4 central canal canal stenosis. 3. Stable moderate to severe multilevel neural foraminal stenosis. 4. Stable severe multilevel degenerative spondylosis.. 5. Mild bladder wall thickening is very secondary to bladder hypertrophy or cystitis. Electronically authenticated by: CRISTO SALAS Date: 04/13/2024 15:48
--- NOTE | 2024-04-13 16:27 | ED.BACK1 ---
HPI HPI - Back Pain/Injury General Chief Complaint: Back Pain/Injury Stated Complaint: LOWER BACK PAIN Time Seen by Provider: 04/13/24 14:10 Source: patient and family Mode of arrival: Wheelchair History of Present Illness HPI Narrative: This patient is here with his complaining of left flank pain. The pain does not radiate to the abdomen. He has not had surgery on his back but he said multiple episodes of back problems with diagnosis arthritis spinal stenosis. He has not seen any blood in his urine but he is also under the care of a urologist in [place]. He is already taking Flomax and saw palmetto. He has been told he has enlargement of the prostate. Today he has not voided since approximately 8:00 AM this morning. He is not running a fever. He is not on any antibiotics. He has not had any radiculopathy, no neurological symptoms are new. He says he does have ongoing neurological problems bladder control and has some dribbling with urination. Is been proposed that he have procedure on his prostate but has not been done at this time. Related Data Home Medications ?Medication ?Instructions ?Recorded ?Confirmed aspirin 81 mg tablet,delayed 81 mg PO DAILY 02/27/23 11/28/23 release (Adult Aspirin Regimen) lisinopril 10 1 tab PO DAILY 02/27/23 11/28/23 mg-hydrochlorothiazide 12.5 mg tablet metoprolol succinate 25 mg 25 mg PO DAILY 02/27/23 11/28/23 tablet,extended release 24 hr multivitamin (Daily Multi-Vitamin 1 tab PO DAILY 02/27/23 11/28/23 tablet) omeprazole 40 mg capsule,delayed 40 mg PO DAILY 02/27/23 11/28/23 release saw palmetto 450 mg capsule 900 mg PO DAILY 02/27/23 11/28/23 tamsulosin 0.4 mg capsule 0.8 mg PO Q24H 02/27/23 11/28/23 Allergies Allergy/AdvReac Type Severity Reaction Status Date / Time ciprofloxacin [From Cipro] Allergy Severe Verified 11/28/23 14:29 Opioid HPI Opioid Management Most Recent Opioid Data: No Data to Display [facility] Medical History (Updated 04/13/24 @ 17:19 by David Burleson MD) Cervical vertebral collapse ?M48.52XA - Collapsed vertebra, not elsewhere classified, cervical region, initial encounter for fracture (ICD-10) Leg fracture, left ?S82.92XA - Unspecified fracture of left lower leg, initial encounter for closed fracture (ICD-10) GERD (gastroesophageal reflux disease) ?K21.9 - Gastro-esophageal reflux disease without esophagitis (ICD-10) Acute confusion ?R41.0 - Disorientation, unspecified (ICD-10) TIA (transient ischemic attack) ?G45.9 - Transient cerebral ischemic attack, unspecified (ICD-10) Hypertension ?I10 - Essential (primary) hypertension (ICD-10) Active Meniere's disease ?H81.09 - Meniere's disease, unspecified ear (ICD-10) Surgical History (Updated 02/27/23 @ 16:43 by Angely Tamayo) History of tonsillectomy ?Z90.89 - Acquired absence of other organs (ICD-10) H/O colonoscopy (~02/26/23) ?Z98.890 - Other specified postprocedural states (ICD-10) H/O esophagogastroduodenoscopy (~02/26/23) ?Z98.890 - Other specified postprocedural states (ICD-10) Social History Within the past year, how often did you have a drink containing alcohol: monthly or less Smoking status: Current every day smoker What tobacco products do you use: cigars Non-prescribed substance use: denies use 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 His through an X on his back is adjacent to the transverse process of L4 on the left. There is no gross kyphoscoliosis. Patient has no respiratory distress and pulse oximetry is normal. He has negative straight leg raising test. Extensor houses longus is strong and equal bilaterally. Deep tendon reflexes at patella are 3/4 and equal bilaterally. He has no fever shakes or chills. We asked him to void as noted below. Constitutional Vital Signs, click to edit/add: Last Vital Signs Temp 98 F 04/13/24 14:06 Pulse 66 04/13/24 14:06 Resp 18 04/13/24 14:06 BP 130/61 09/15/24 14:06 Pulse Ox 96 04/13/24 14:06 O2 Del Method Room Air 04/13/24 14:06 Course Vital Signs Vital signs: Vital Signs Temperature 98 F 04/13/24 14:06 Pulse Rate 66 04/13/24 14:06 Respiratory Rate 18 04/13/24 14:06 Blood Pressure 130/61 04/13/24 14:06 Pulse Oximetry 96 04/13/24 14:06 Oxygen Delivery Method Room Air 04/13/24 14:06 Temperature 98 F 04/13/24 14:06 Pulse Rate 66 04/13/24 14:06 Respiratory Rate 18 04/13/24 14:06 Blood Pressure 130/61 04/13/24 14:06 Pulse Oximetry 96 04/13/24 14:06 Oxygen Delivery Method Room Air 04/13/24 14:06 MDM - Back Pain/Injury MDM Narrative Medical decision making narrative: This patient was asked to void but he was not able to void any urine. We did a bladder scan and he has almost 500 cc of residual urine. He has been told he has an enlarged prostate and has been told that he might need laser surgery. He is already on 2 meds. I do not believe the issue today is from spinal cord compromise or problems. 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 Today we have done a CT scan of his lumbar spine and it confirms severe spinal stenosis and degenerative changes. At this time we will, after discussing with him, pass a Wiley catheter. Will then check the urine for any type of infectious process We were able to pass a Wiley catheter. The urinalysis does not suggest any urinary tract infection. Small amount of RBCs are noted. At this stage we will show him how to use the catheter apparatus at home. He is to call his urologist first thing tomorrow. I believe most of his pain is from his lumbar area and not necessarily any other pathology. Lab Data Labs: Lab Results 04/13/24 Range/Units 16:36 Urine Color Yellow (YELLOW) Urine Clarity Clear (CLEAR) Urine pH 6.0 (5.0-9.0) Ur Specific Rudy 1.020 (1.005-1.025) Urine Protein Negative (NEG/TRACE) mg/dL Urine Glucose (UA) Negative (NEGATIVE) mg/dL Urine Ketones Negative (NEGATIVE) mg/dL Urine Occult Blood Large A (NEGATIVE) Urine Nitrite Negative (NEGATIVE) Urine Bilirubin Negative (NEGATIVE) Urine Urobilinogen 1.0 (0.2-1.0) EU/dL Ur Leukocyte Esterase Negative (NEGATIVE) Urine RBC 20-50 A (0-2) #/HPF Urine WBC None seen (NONE SEEN) #/HPF Ur Squamous Epith Cells Rare (NONE/RARE) #/LPF Urine Crystals None seen (None Seen) #/HPF Urine Bacteria Trace A (NONE SEEN) #/HPF Urine Casts None seen (NONE SEEN) #/LPF Urine Mucus None seen (NONE SEEN) Ur Culture Indicated? No Discharge Plan Discharge Chief Complaint: Back Pain/Injury Clinical Impression: Acute urinary obstruction Patient Disposition: Home, Self-Care Time of Disposition Decision: 17:19 Prescriptions / Home Meds: No Action lisinopril-hydrochlorothiazide 10-12.5 mg tablet 1 tab PO DAILY Hold Instructions: Resume on 03/07/23. hold this till See PCP Rx Instructions: PER RETAIL FILL HX - LAST FILLED 12/23/22 #90 FOR A 90 DAY SUPPLY metoprolol succinate 25 mg tablet extended release 24 hr 25 mg PO DAILY Rx Instructions: PER RETAIL FILL HX - LAST FILLED 02/24/23 #30 FOR A 30 DAY SUPPLY omeprazole 40 mg capsule,delayed release(DR/EC) 40 mg PO DAILY Rx Instructions: PER RETAIL FILL HX - LAST FILLED 02/26/23 #90 FOR A 90 DAY SUPPLY tamsulosin 0.4 mg capsule 0.8 mg PO Q24H Rx Instructions: PER RETAIL FILL HX - LAST FILLED 12/22/22 #180 FOR A 90 DAY SUPPLY aspirin [Adult Aspirin Regimen] 81 mg tablet,delayed release (DR/EC) 81 mg PO DAILY Hold Instructions: Doctor's Order Patient Comments: carpal tunnel surgery, asa on hold multivitamin [Daily Multi-Vitamin] Tablet 1 tab PO DAILY saw palmetto 450 mg capsule 900 mg PO DAILY Rx Instructions: give with food (meal/snack) Print Language: Portuguese Additional Instructions: Follow-up with your urologist tomorrow. Empty Wiley catheter bag as necessary. Central as necessary for back pain Referrals: Cameron Gaming DO [Primary Care Provider] - 1 week
[2024-04-13 16:43] LABS: Bilirubin Urine NEGATIVE (NEGATIVE); Blood Urine LARGE (NEGATIVE); Clarity Urine CLEAR (CLEAR); Color Urine YELLOW (YELLOW); Glucose Urine UA NEGATIVE (NEGATIVE); Ketones Urine NEGATIVE (NEGATIVE); Leukocyte Esterase Urine NEGATIVE (NEGATIVE); Nitrite Urine NEGATIVE (NEGATIVE); Protein Urine NEGATIVE (NEG/TRACE)
[2024-04-13 16:46] LABS: Urine Microscopic Indicated YES
[2024-04-13 16:50] LABS: Bacteria Urine TRACE #/HPF (NONE SEEN); Cast Seen? NONE SEEN #/LPF (NONE SEEN); Crystals Seen? None Seen #/HPF (None Seen); Mucus Urine NONE SEEN (NONE SEEN); RBC Urine 20-50 #/HPF (0-2); Squamous Epithelial Cell Urine RARE #/LPF (NONE/RARE); WBC Urine NONE SEEN #/HPF (NONE SEEN)
[2024-04-13 16:51] LABS: Urine Culture Indicated NO
== END 2024-04-13 17:52 | disposition home or self-care (01) ==
PROVIDERS: Emergency Provider Emergency Medicine Emergency Medical Services; PCP Internal Medicine
DX: N13.9 Obstructive and reflux uropathy, unspecified (principal); N40.0 Benign prostatic hyperplasia without lower urinary tract symptoms; R39.198 Other difficulties with micturition; Z79.899 Other long term (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; F17.290 Nicotine dependence, other tobacco product, uncomplicated
CPT/HCPCS: 51702; 51798; 72131; 81001; 99284

== ENCOUNTER 2024-05-15 12:45 | Outpatient (OUT) | payer MEDICARE, SELFPAY ==
--- NOTE | 2024-05-15 12:55 | FL_ITS ---
The [address] [address] Patient Name: JESÚS BARR MRN: [id number] date: 1940 Sex: M Assigned Patient Location: [place] Current Patient Location: [place] Accession/Order Number: [id number] Exam Date: 05/15/2024 13:00 Report Date: 05/15/2024 13:44 At the request of: ALEXANDER DAMON Procedure: FL barium swallow EXAMINATION: FL barium swallow, FL cineradiography HISTORY: Globus sensation, Dysphagia, R13.14 FLUORO DOSE: unknown. 45 seconds of fluoroscopy COMPARISON: No relevant comparison available. TECHNIQUE: A swallowing evaluation was performed with fluoroscopy in the usual manner. Standard level fluoroscopic mode of operation utilized. FINDINGS: ORAL PHASE: Normal deglutition. PHARYNGEAL PHASE: Normal swallowing. ASPIRATION: None. STRUCTURE: Dilation of the proximal to mid esophagus with no filling defects. Tertiary nonpropulsive contractions of the mid to distal esophagus with vert (appearance of the distal esophagus but not occlusion. Small stream of contrast seen passing through the gastroesophageal junction into the gastric lumen OTHER: Negative. FL/FL barium swallow IMPRESSION: High-grade stenosis of the distal esophagus. While of unknown etiology, the overall configuration suggests achalasia. This results in backup of food stuffs and tertiary nonpropulsive contractions Electronically authenticated by: FRANKO JACOBS Date: 05/15/2024 13:44
--- NOTE | 2024-05-15 12:55 | FL_ITS ---
The [address] [address] Patient Name: JESÚS BARR MRN: [id number] date: 1940 Sex: M Assigned Patient Location: [place] Current Patient Location: [place] Accession/Order Number: [id number] Exam Date: 05/15/2024 13:00 Report Date: 05/15/2024 13:44 At the request of: ALEXANDER DAMON Procedure: FL cineradiography EXAMINATION: FL barium swallow, FL cineradiography HISTORY: Globus sensation, Dysphagia, R13.14 FLUORO DOSE: unknown. 45 seconds of fluoroscopy COMPARISON: No relevant comparison available. TECHNIQUE: A swallowing evaluation was performed with fluoroscopy in the usual manner. Standard level fluoroscopic mode of operation utilized. FINDINGS: ORAL PHASE: Normal deglutition. PHARYNGEAL PHASE: Normal swallowing. ASPIRATION: None. STRUCTURE: Dilation of the proximal to mid esophagus with no filling defects. Tertiary nonpropulsive contractions of the mid to distal esophagus with vert (appearance of the distal esophagus but not occlusion. Small stream of contrast seen passing through the gastroesophageal junction into the gastric lumen OTHER: Negative. FL/FL cineradiography IMPRESSION: High-grade stenosis of the distal esophagus. While of unknown etiology, the overall configuration suggests achalasia. This results in backup of food stuffs and tertiary nonpropulsive contractions Electronically authenticated by: FRANKO JACOBS Date: 05/15/2024 13:44
--- OUTSIDE RECORDS SUMMARY | 2024-05-15 12:58 | XMS_ITS | CCD ---
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 Name Role Phone RuthHiren alonso Unavailable Cameron Gaming Unavailable MISC, DR SAMUEL Admitting Unavailable JENNIFER, RIVAS Consulting Unavailable MISC, DR SAMUEL Attending Unavailable BALL, DR KRISHNAN Primary Care Unavailable BALL, DR KRISHNAN Primary Care Unavailable JENNIFER, RIVAS Attending Unavailable JENNIFER, RIVAS Admitting Unavailable WEST, DR FRNAKO Robles Consulting Unavailable JENNIFER, RIVAS Consulting Unavailable [...] Attending Unavailable BALL, DR KRISHNAN Consulting Unavailable Gene Nguyễn Unavailable DO Cameron Gaming Primary Care Provider MD Gene Nguyễn Attending Provider Asim Mathur Unavailable DO Cameron Gaming Primary Care Provider LUKE Noguera Attending Provider MD Sushil Goodman Attending Provider MD John Adam Attending Provider DO Lane Carlos Admit Provider [phone] MD George Romero Attending Provider MD Asim Mathur Other Provider MD Syed Buchanan Other Provider [phone] DO Cameron Gaming Primary Care Provider MD Syed Buchanan Other Provider Damon PATEL Attending Unavailable Syed Buchanan Referring Unavailanthony e Syed Buchanan. Attending Unavailabl e Ball, DO Cameron Primary Care Provider [phone] MD Nhan Ramirez Emergency Provider [phone] Nhan Ramirez Admitting Unavailable Nhan Ramirez Attending Unavailable Ball, Cameron Primary Care Unavailable Koromia, Sushil Boss Admitting Unavai lable Koromia, Sushil Boss Attending Unavai lable Ball, Cameron Primary Care Unavailable Lesvia Noguera Admitting Unavailable Noguera, Lsevia Attending Unavailable Ball, Cameron Primary Care Unavailable Adam, John E Attending Unavailable Ball, Cameron Primary Care Unavailable Adam, John E Admitting Unavailable NickGeorge Attending Unavailable Lane Carlos Admitting Unavailabl e Asim Mathur Consulting Unavailable Ball, Cameron Primary Care Unavailable DewayneSyed Consulting Unavailable Ball, Cameron Primary Care Unavailable Adam, John E Admitting Unavailable Adam, John E Attending Unavailable ULISES KELLOGG JR Attending Unavailable ULISES KELLOGG JR Referring Unavailable BALL, CAMERON E Primary Care Unavailable BALL, CAMERON E Referring Unavailable BALL, CAMERON E Primary Care Unavailable BALL, CAMERON E Referring Unavailable BALL, CAMERON E Primary Care Unavailable ULISES KELLOGG JR Attending Unavailable BALL, CAMERON E Referring Unavailable BALL, CAMERON E Primary Care Unavailable Ball DO, Cameron E Primary Care Provider ALEXANDER DAMON Attending Unavailable Allergies Allergy Classification Reported Allergen(s) Allergy Type Date of Onset Reaction(s) Facility (20 sources) Ciprofloxacin; Translations: [CIPROFLOXACIN] Drug Allergy 03-01-20 19 Unknown, Muscle Pain [facility] (2 sources) Ciprofloxacin; Translations: [Cipro] Drug Allergy 05-28-20 17 [facility] (8 sources) HMG-CoA reductase inhibitor Drug allergy Unknown [employer] Other (9 sources) tamsulosin Drug Allergy 10-10-19 24 Unknown, Unknown Reaction [facility] (1 source) tamsulosin Drug Allergy Unknown [employer] Other (2 sources) Vwigjuh-AVX-MzK Reductase Inhibitor Allergy to substance 10-10-19 Unknown Reaction [facility] (1 source) Ciprofloxacin Drug Allergy 04-18-20 [facility] Medications Current Medications Medication Drug Class(es) Dates [...] 1 tablet Orally Once a day Active baclofen 10 mg oral tablet (3 sources) gamma-Aminobutyric Acid-ergic Agonist take 1 tablet by mouth in the morning baclofen (LIORESAL) 10 mg tablet Take 1 tablet (10 mg total) by mouth in the morning. Active cephalexin 500 mg oral capsule (11 sources) Cephalosporin Antibacterial Start: 04-14-20 take 500 mg by mouth every eight hours Cephalexin Active 500 MG PO Every 8 hours 16 02April 14, 2024 12:00am Start: 11-14-2023 End: 11-28-2023 take 500 mg by mouth three times daily Cephalexin Discontinued 500 MG PO Three times daily November 14, 2023 12:00am November 28, 2023 11:15pm dutasteride 0.5 mg oral capsule (10 sources) 5-alpha Reductase Inhibitor Start: 12-01-2023 take 1 capsule by mouth in the morning dutasteride (AVODART) 0.5 mg capsule Take 1 capsule (0.5 mg total) by mouth in the morning. 90 capsule 3 04/24/2024 Active gabapentin 100 mg oral capsule (20 sources) Anti-epileptic Agent Start: 10-24-2023 take 200 mg by mouth once daily at bedtime Gabapentin Active 200 MG PO every day in the morning and at bedtime October 24, 2023 12:00am Start: 10-24-2023 take 300 mg by mouth once daily at bedtime Gabapentin Active 300 MG PO every day in the morning and at bedtime October 24, 2023 12:00am Start: 12-13-2022 End: 09-26-2023 gabapentin (NEURONTIN) 100 m g capsule 12/13/2022 Active hydroCHLOROthiazide 25 mg oral tablet (12 sources) Thiazide Diuretic Start: 02-04-2024 take 25 [...] Thiazide Diuretic, Angiotensin Converting Enzyme Inhibitor Start: 06-26-2022 lisinopril-hydroCHLOROthiazi de (PRINZIDE,ZESTORETIC) 10-12.5 mg per tablet 06/26/2022 Active Start: 04-22-2020 take 1 tablet by galdino th once daily in the morning Lisinopril-Hydrochlorothiazide Active 1 TAB PO Every morning April 22, 2020 12:00am take 1 tablet by galdino th every twenty-four hours 24 hr metoprolol succinate 25 mg extended release oral tablet (20 sources) beta-Adrenergic Nav Start: 02-26-2023 take 25 mg by mouth once daily in the morning Metoprolol Succinate Active 25 MG PO Every morning February 26, 2023 12:00am Start: 04-22-2020 End: 02-26-2023 take 50 mg by mouth twice daily Metoprolol Tartrate Di scontinued 50 MG PO Twice daily April 22, 2020 12:00am February 26, 2023 7:58am take 1 tablet by galdino th every twenty-four hours in the morning metoprolol succinate XL (TOPROL XL) 50 mg 24 hr tablet Take 1 tablet (50 mg total) by mouth in the morning. Active hxffdaxw-migr-LN-calcium &mi ns (THERAGRAN-M) 9 mg iron-400 mcg tablet (3 sources) ojyxpbci-ijmm-IQ -calcium &mins (THERAGRAN-M) 9 mg iron-400 mcg tablet Take 1 tablet by mouth in the morning. Active Multivitamin preparation (20 sources) Start: take 1 tablet by mouth once daily [...] Proton Pump Inhibitor Start: 02-26-2023 End: 11-07-2023 omeprazole (PriLOSEC) 40 mg capsule Every morning 11/07/2023 Active ondansetron 4 mg disintegrating oral tablet (16 sources) Serotonin-3 Receptor Antagonist Start: 12-20-2023 End: [...] December 20, 2023 3:36pm polyethylene glycol 3350 [id number] mg / potassium chloride 2970 mg / sodium bicarbonate 6740 mg / sodium chloride 5860 mg / sodium sulfate 27290 mg powder for oral solution (6 sources) Osmotic Laxative Start: 01-16-2023 take 236 g by mouth once daily Golytely 236 GM 236 GM Orally THE DAY BEFORE THE COLONOSCOPY for 1 days Dec, Active Start: 01-16-2023 polysaccharide iron complex 150 mg oral capsule (7 sources) Start: 12-01-2023 Polysaccharide Iron Complex Active 150 MG PO Every 48 hours December 01, 2023 12:00am [place] (20 sources) Start: 09-26-2023 take 450 mg by mouth twice daily at mealtime Saw [place] Active 450 MG PO Twice daily September 26, 2023 1:00am give with food (meal/snack) Start: 02-26-2023 End: 09-21-2023 take 450 mg by mouth twice daily at mealtime Saw [place] Discontinued 450 MG PO Twice daily February 26, 2023 12:00am September 21, 2023 3:15pm give with food (meal/snack) Start: 02-26-2023 take 450 mg by mouth twice daily at mealtime [place] Active 450 MG PO Twice daily February 26, 2023 12:00am give with food (meal/snack) triamcinolone acetonide 1 mg/ml topical cream (4 sources) Corticosteroid Start: 01-14-2024 Triamcinolone Acetonide Active 1 APPLIC TOPICAL Twice daily January 14, 2024 12:00am vitamin b12 1 mg oral tablet (3 sources) Vitamin B12 take 1 tablet by mouth in the morning cyanocobalamin 1000 MCG tablet Take 1 tablet (1,000 mcg total) by mouth in the morning. Active Completed/Discontinued Medications Medication Drug Class(es) Dates Sig (Normalized) Sig (Original) amoxicillin 875 mg / clavulanate 125 mg oral tablet (4 sources) Penicillin-class Antibacterial Start: 01-23-2024 End: 03-28-2024 take 1 tablet by mouth every twelve hours Amoxicillin-Pot Clavulanate Discontinued 1 TAB PO Every 12 hours 14 7 January 23, 2024 12:00am March 28, 2024 [...] 26, 2023 12:00am September 21, 2023 3:14pm diazePAM 5 mg oral tablet (14 sources) Benzodiazepine Start: 04-28-2020 End: 02-26-2023 take 5 mg by mouth four times daily Diazepam Discontinued 5 MG PO Four times daily 40 April 28, 2020 12:00am February 26, 2023 8:03am doxycycline hyclate 100 mg oral capsule (13 sources) Tetracycline-class Drug Start: 01-14-2024 End: 03-28-2024 take 100 mg by mouth twice daily Doxycycline Hyclate Discontinued 100 MG PO Twice daily 14 January 14, 2024 12:00am March 28, 2024 12:01pm Start: 02-13-2023 take 1 capsule by [facility] twice daily as needed Doxycycline Hyclate 100 MG 1 capsule Orally twice daily for 7 days Jan, Not-Taking/PRN lisinopril 5 mg oral tablet (4 sources) Angiotensin Converting Enzyme Inhibitor Start: 01-18-2024 End: 01-21-2024 take 5 mg by mouth once daily Lisinopril Discontinued 5 MG PO Daily January 18, 2024 12:00am January 21, 2024 1:28pm meloxicam 15 mg oral tablet (18 sources) Nonsteroidal Anti-inflammatory Drug Start: 04-22-2020 End: 04-28-2020 take 15 mg by mouth once daily Meloxicam Discontinued 15 MG PO Daily April 22, 2020 12:00am April 28, 2020 8:30am Okyzofss-Whj-Nvrwc-V it K-Lycop (Men's Multivitamin) 400-20-300 mcg Tablet (14 sources) Start: 04-22-2020 End: 02-26-2023 take 1 tablet by mouth once daily Qglkspow-Gjl-Smhwp -Vit K-Lycop (Men's Multivitamin) 400-20-300 mcg Tablet Discontinued 1 TAB PO Daily April 22, 2020 12:00am February 26, 2023 8:03am oxyCODONE hydrochloride 5 mg oral tablet (20 sources) Opioid Agonist Start: 11-14-2023 End: 11-28-2023 [...] mg / trimethoprim 160 mg oral tablet (17 sources) Dihydrofolate Reductase Inhibitor Antibacterial, Sulfonamide Antimicrobial Start: 09-21-2023 End: 09-26-2023 take 1 tablet by mouth twice daily Sulfamethoxazole-Trimethoprim (Bactrim Ds) 800-160 mg tablet Discontinued 1 TAB PO Twice daily September 21, 2023 1:00am September 26, 2023 11:11am Start: 03-07-2023 take 1 tablet by galdino every twelve hours Bactrim DS 800-160 MG 1 tablet Orally Twice a day for 14 days Feb, Active tamsulosin hydrochloride 0.4 mg oral capsule (20 sources) alpha-Adrenergic Nav Start: 02-26-2023 End: 03-04-2024 take 0.4 mg by mouth twice daily Tamsulosin Discontinued 0.4 MG PO Twice daily September 26, 2023 12:17pm March 04, 2024 1:13pm Start: 12-22-2022 End: 05-09-2024 take 2 capsules by mouth once daily tamsulosin (FLOMAX) 0.4 mg capsule Take 2 capsules (0.8 mg total) by mouth nightly. 180 capsule 3 04/24/2024 05/09/2024 Discontinued (Alternate therapy) Start: 11-01-2022 take 1 capsule by mo uth every twenty-four hours Tamsulosin HCl 0.4 MG 1 capsule Orally Once a day Oct, Active Problems Active Problems Problem Classification Problem Date Documented Date Episodic/Chronic Abdominal pain (3 sources) Abdominal pain; Translations: [Unspecified abdominal pain] Onset: 4 12-06-2023 Episodic Acquired foot deformities (20 sources) Foot-drop; Translations: [Foot drop, left foot] 10-10-2023 Episodic Acute bronchitis (8 sources) Acute bronchitis due to other specified organisms; Translations: [Acute bronchitis] Episodic Acute posthemorrhagic anemia (10 sources) Acute posthemorrhagic anemia; Translations: [Acute posthemorrhagic [...] loss (chronic) Chronic Deficiency and other anemia (5 sources) Anemia, unspecified; Translations: [ANEMIA UNSPECIFIED] Onset: 3 Episodic Deficiency and other anemia (2 sources) Anemia; Translations: [Anemia, unspecified] 12-05-2023 Episodic Diseases of mouth; excluding dental (16 sources) Lesion of tongue; Translations: [Other diseases of tongue] Episodic Disorders of lipid metabolism (20 sources) Familial hypercholesterolemia; 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] Onset: 6 09-26-2023 Chronic Diverticulosis and diverticulitis (20 sources) Diverticular disease; Translations: [Diverticulosis of intestine, part unspecified, without perforation or abscess without bleeding] Onset: 4 11-28-2023 Chronic E Codes: Natural/environment (1 source) Bitten or stung by nonvenomous insect and other nonvenomous arthropods, initial encounter Episodic Esophageal disorders (15 sources) Gastro-esophageal reflux disease with esophagitis; Translations: [Gastroesophageal reflux disease with esophagitis without hemorrhage] 09-21-2023 Chronic Essential hypertension (20 sources) Essential hypertension; Translations: [Essential (primary) hypertension] Onset: 4 Chronic Fluid and electrolyte disorders (1 source) Dehydration Episodic Gastritis and duodenitis (1 source) Acute gastritis with bleeding Episodic Genitourinary symptoms and ill-defined conditions (20 sources) Other retention of urine; Translations: [Finding of sensation of bladder] Onset: 3 Episodic Hyperplasia of prostate (20 sources) Benign [...] of head without foreign body] Episodic Osteoarthritis (16 sources) Primary osteoarthritis, right shoulder; Translations: [Localized, primary osteoarthritis of the shoulder region] 03-27-2024 Chronic Other acquired deformities (16 sources) Spondylolisthesis; Translations: [Spondylolisthesis, cervical region] Episodic Other acquired deformities (9 sources) Lumbar spondylolisthesis; Translations: [Spondylolisthesis, lumbar region] 10-10-2023 Episodic Other aftercare (3 sources) 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 block 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 (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; Translations: [OTH MOTHER HELPER CURRENT DRUG THERAPY] Onset: 2 Episodic Other aftercare (6 sources) Long-term current use of drug therapy; Translations: [Other retirement (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] Episodic Other gastrointestinal disorders (3 sources) Dysphagia, pharyngoesophageal phase; Translations: [Dysphagia, pharyngoesophageal phase] Episodic Other gastrointestinal disorders (5 sources) Pharyngeal dysphagia; Translations: [Dysphagia, pharyngoesophageal phase] Episodic Other gastrointestinal disorders (1 source) Dysphagia; Translations: [Dysphagia, unspecified] 04-24-2024 Episodic Other hereditary and degenerative nervous system [...] right shoulder] Episodic Other non-traumatic joint disorders (8 sources) Pain in left shoulder; Translations: [Left shoulder pain] 03-27-2024 Episodic Other nutritional; endocrine; and metabolic disorders (3 sources) Overweight; Translations: [Overweight] Episodic Other nutritional; endocrine; and metabolic disorders (5 sources) Overweight; Translations: [Overweight] Episodic Other skin disorders (2 sources) Other specified follicular disorders; Translations: [Other specified follicular disorders] Episodic Other skin disorders (6 sources) Hair follicle disorder; Translations: [Other specified follicular disorders] Episodic Paralysis (16 sources) Brown-Sequard syndrome; 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 Peripheral and visceral atherosclerosis (20 sources) Atherosclerosis of [place] arteries of extremities with intermittent claudication, left leg; Translations: [Intermittent claudication of left lower limb co-occurrent and due to atherosclerosis] 09-21-2023 Chronic Residual codes; unclassified (3 sources) Edema of lower extremity; Translations: [Localized edema] 03-28-2024 Episodic Residual codes; unclassified (3 sources) Localized edema; Translations: [Edema] 03-28-2024 Episodic Residual codes; unclassified (1 source) Pain, unspecified; Translations: [Pain, unspecified] Onset: 4 Episodic Screening and history of mental health and substance abuse codes (2 sources) Encounter for screening for depression; Translations: [Encounter for screening for depression] Episodic Spondylosis; intervertebral disc disorders; other back problems (20 sources) Cervical spondylosis with myelopathy; Translations: [Other spondylosis with myelopathy, cervical region] Onset: 7 Resolved: 2 Chronic Spondylosis; intervertebral disc disorders; other back problems (17 sources) Spinal stenosis, lumbar region with neurogenic claudication; Translations: [Sciatica, left side] Onset: 7 Resolved: 2 Episodic Substance-related disorders (8 sources) Nicotine dependence, cigarettes, in remission; Translations: [Tobacco user] Chronic Superficial injury; contusion (1 source) Insect bite (nonvenomous), right lower leg, initial encounter Episodic Unclassified (3 sources) Low back pain, unspecified; Translations: [Low back pain, unspecified] Onset: 7 Past or Other Problems Problem Classification Problem Date Documented Da te Episodic/Chronic Esophageal disorders (1 source) Esophageal disorders Gastrointestinal hemorrhage (17 sources) Acute lower gastrointestinal hemorrhage; Translations: [Gastrointestinal hemorrhage, unspecified] Onset: 4 11-28-2023 Episodic Malaise and fatigue (8 sources) Chronic fatigue, unspecified; Translations: [Chronic fatigue syndrome] Resolved: 0 Chronic Neoplasms of unspecified nature or uncertain behavior (8 sources) Neoplasm of uncertain behavior of skin; Translations: [Neoplasm of uncertain behavior of skin] Resolved: 1 Episodic Other acquired deformities (9 sources) Spondylolisthesis, lumbar region; Translations: [Acquired spondylolisthesis] Onset: 4 10-10-2023 Episodic Other gastrointestinal disorders (2 sources) Drug induced constipation; Translations: [Drug induced constipation] Resolved: 1 Episodic Other gastrointestinal disorders (6 sources) Drug-induced constipation; Translations: [Drug induced constipation] Resolved: 1 Episodic Other nervous system disorders (4 sources) Paresthesia of skin; Translations: [PARESTHESIA OF SKIN] Onset: 2 Episodic Other nervous system disorders (1 source) Other abnormalities of gait and mobility; Translations: [OTHER ABNORMALITIES GAIT AND MOBILITY] Onset: 2 Episodic Other screening for suspected conditions (not mental disorders or infectious disease) (20 sources) Elevated prostate specific antigen [PSA]; Translations: [Raised prostate specific antigen] Onset: 6 Resolved: 0 Episodic Sprains and strains (8 sources) Sprain of left rotator cuff capsule, subsequent encounter; Translations: [Sprain of left rotator cuff capsule] Resolved: 1 Episodic Results Test Name Value Interpretation Reference Range Facility Automated basophil %Ordered By: PROVIDER TEMP on 04-14-2024 Basophils/100 WBC (Bld) 0.2 % Normal . [facility] Comment on above: Performed By: #### C BC, BMP #### [address] Automated basophil countOrde red By: PROVIDER TEMP on 04-14-2024 Basophils (Bld) [#/Vol] 0.0 10*3/uL Normal 0.0-0.2 [facility] Comment on above: Result Comment: PERF ORMED BY: [place] [address] PATHOLOGIST SYSTEM SAFETY MANAGER JAMISON ANDINO M.D. Performed By: #### C BC, BMP #### [address] Automated blood monocyte cou ntOrdered By: PROVIDER TEMP on 04-14-2024 Monocytes (Bld) [#/Vol] 0.9 10*3/uL High 0.0-0.8 [facility] Comment on above: Performed By: #### C BC, BMP #### [address] Automated eosinophil %Ordere d By: PROVIDER TEMP on 04-14-2024 Eosinophils/100 WBC (Bld) 0.1 % Normal . [facility] Comment on above: Performed By: #### C BC, BMP #### [address] Automated eosinophil countOr dered By: PROVIDER TEMP on 04-14-2024 Eosinophils (Bld) [#/Vol] 0.0 10*3/uL Normal 0.0-0.45 [facility] Comment on above: Performed By: #### C BC, BMP #### [address] Automated monocyte %Ordered By: PROVIDER TEMP on 04-14-2024 Monocytes/100 WBC (Bld) 7.0 % Normal . [facility] Comment on above: Performed By: #### C BC, BMP #### [address] Automated neutrophil %Ordere d By: PROVIDER TEMP on 04-14-2024 Neutrophils/100 WBC (Bld) 86.5 % Normal . [facility] Comment on above: Performed By: #### C BC, BMP #### [address] Bacteria [Presence] in Urine by AutomatedOrdered By: PROVIDER TEMP on 04-14-2024 Bacteria Auto Ql (U) None seen [HPF] None Seen [facility] Basic Metabolic Panelon 03-30 Creatinine Clr Calc Pharmacy 52.92 Normal [facility] Comment on above: Result Comment: PERF ORMED BY: [place] [address] PATHOLOGIST SYSTEM SAFETY MANAGER JAMISON ANDINO M.D. Performed By: #### C BC, BMP #### [facility] [address] [place] [address] [place] GFR/1.73 sq M.predicted MDRD (S/P/Bld) [Vol rate/Area] mL/min/{1.73_m2} Normal [facility] Comment on above: Performed By: #### C BC, BMP #### [place] [id number] [facility] Bilirubin Test strip Ql (U)O rdered By: PROVIDER TEMP on 04-14-2024 Bilirubin Ql (U) Negative Negative [facility] CT abdomen pelvis wo conon 0 04-14-2024 CT abdomen pelvis wo con [facility] Main [place] [address] [place] [address] CT Scan Report Signed Patient: Jesús Babcock MR#: [id number] : 1940 Acct:[id number] Age/Sex: 83 / M ADM Date: 04/14/24 Loc: ER Room: Type: [facility] ER Attending Dr: Copies to: Nhan Ramirez MD Ordering Provider: Nhan Ramirez MD Date of Service: 04/14/24 CT/CT abdomen pelvis wo con: n.m/, CT ABDOMEN AND PELVIS WITHOUT INTRAVENOUS CONTRAST: CLINICAL HISTORY: Back and flank pain for 2 days. COMPARISON: CT abdomen and pelvis 11/28/2023 TECHNIQUE: Spiral images were obtained through the abdomen and pelvis without intravenous contrast. This CT exam was performed using one or more following dose reduction techniques: Automated exposure control, adjustment of the mA and/or kV according to patient size, or use of iterative reconstruction technique. FINDINGS: Lung Bases: [Minimal scarring.] Organs:Suboptimal evaluation due to lack of IV contrast. Cholelithiasis. Liver pancreas spleen and adrenal glands appear unremarkable. Kidneys demonstrate no stones or hydronephrosis. Small cyst inferior pole left kidney. Abdominal aorta appears normal in caliber.[ GI: Fluid is seen involving the distal esophagus. Stomach is grossly unremarkable. Small bowel appears nondilated. Moderate stool burden. Left colon diverticulosis.[ Pelvis:[Chaidez catheter is in place. There appears be diffuse urinary bladder wall thickening with prostatomegaly. Left-sided fat filled inguinal hernia.] Peritoneum/Retroperitoneum :No free air, free fluid or lymphadenopathy.[ Abd wall/Bones:Abdominal wall demonstrates no acute findings. Fat filled umbilical hernia. Osseous structures demonstrate degenerative change. Grade 1 spondylolisthesis of L5 on S1 due to bilateral pars defects.[Increased sclerosis and trabeculation involving the sacrum and pelvis similar to the prior study possibly relating to underlying Paget's disease. CT/CT abdomen pelvis wo con IMPRESSION: 1. No acute process is seen. 2. Cholelithiasis. 3. Fluid is seen within the distal esophagus. Underlying esophagitis/wall thickening involving the distal esophagus cannot BE excluded and this can be further evaluated by endoscopy. 4. Evidence of bladder outlet obstruction with prostatomegaly and diffuse urinary bladder wall thickening. Impression dictated by: Sanchez Zamora Jr., D.O.04/14/2024 5:25 PM Dictation Location: [place] [address] Transcribed By: [facility] 04/14/241724 Dictated By: Sanchez Zamora Jr, DO 04/14/24 172 Signed By: 04/14/24 172 Normal [facility] Calcium [Mass/volume] in Ser um or PlasmaOrdered By: Nhan Ramirez on 04-14-2024 Calcium [Mass/Vol] 9.9 mg/dL Normal 8.6-10.3 [facility] Comment on above: Performed By: #### C BC, BMP #### [address] Carbon dioxide, total [Moles /volume] in Serum or PlasmaOrdered By: Nhan Ramirez on 04-14-2024 CO2 [Moles/Vol] 35.1 mmol/L High 21.0-31.0 [facility] Comment on above: Performed By: #### C BC, BMP #### [facility] [address] [place] [address] [place] Chloride [Moles/volume] in S jose or PlasmaOrdered By: Nhan Ramirez on 04-14-2024 Chloride [Moles/Vol] 93 mmol/L Low 98-107 [facility] Comment on above: Performed By: #### C BC, BMP #### [address] Color of Urine by AutoOrdere d By: PROVIDER TEMP on 04-14-2024 Color (U) Light-orange Critically abnormal Yellow [facility] Comment on above: Order Comment: Name Collection Type:: Chaidez Catheter Performed By: #### C UU, ADDONUAPLUS #### [address] Complete Blood Count Auto Di ffon 04-14-2024 Mean Corpuscular HGB Conc 33.9 g/dL Normal 32.5-35.6 [facility] Comment on above: Performed By: #### C BC, BMP #### [address] Monocytes/100 WBC (Bld) 21.04 % High 0.00-20.00 [facility] Comment on above: Result Comment: For adults in ED, MDW > 20.0 may be associated with a higher risk of sepsis during the first 12 hrs of hospital admission Performed By: #### C BC, BMP #### [facility] [address] [place] [address] NRBC% 0.0 /100{WBC} Normal 0-0.5 [facility] Comment on above: Performed By: #### C BC, BMP #### [place] [address] [place] Creatinine [Mass/volume] in Serum or PlasmaOrdered By: Nhan Ramirez on 04-14-2024 Creatinine [Mass/Vol] 0.90 mg/dL Normal 0.70-1.30 [facility] Comment on above: Performed By: #### C BC, BMP #### [facility] [address] [place] [address] [place] Dipstick and Microscopicon 0 04-14-2024 Bacteria,Urine None Seen Normal None Seen [facility] Comment on above: Order Comment: Name Collection Type:: Chaidez Catheter Performed By: #### C UU, ADDONUAPLUS #### [place] [address] [place] Bilirubin,Urine Negative Normal Negative [facility] Comment on above: Order Comment: Name Collection Type:: Chaidez Catheter Performed By: #### C UU, ADDONUAPLUS #### [address] Glucose Ql (U) Normal Normal Normal [facility] Comment on above: Order Comment: Name Collection Type:: Chaidez Catheter Performed By: #### C UU, ADDONUAPLUS #### [place] [address] [place] Hyaline Casts,Urine None Normal 0-8 [facility] Comment on above: Order Comment: Name Collection Type:: Chaidez Catheter Performed By: #### C UU, ADDONUAPLUS #### [place] [address] [place] Mucus,Urine 2+ Critically abnormal [facility] Comment on above: Order Comment: Name Collection Type:: Chaidez Catheter Result Comment: PERF ORMED BY: [place] [address] PATHOLOGIST SYSTEM SAFETY MANAGER JAMISON ANDINO M.D. Performed By: #### C UU, ADDONUAPLUS #### [place] [address] [place] Nitrite,Urine Negative Normal Negative [facility] Comment on above: Order Comment: Name Collection Type:: Chaidez Catheter Performed By: #### C UU, ADDONUAPLUS #### [place] [address] [place] Occult Blood,Urine Normal Negative [facility] Comment on above: Order Comment: Name Collection Type:: Chaidez Catheter Result Comment: Unab le to obtain accurate result due to color interference. Performed By: #### C UU, ADDONUAPLUS #### [address] RBC,Urine Innumerable High 0-4 [facility] Comment on above: Order Comment: Name Collection Type:: Chaidez Catheter Performed By: #### C UU, ADDONUAPLUS #### [address] Specificy Upatoi,Urine 1.024 Normal 1.001-1.030 [facility] Comment on above: Order Comment: Name Collection Type:: Chaidez Catheter Performed By: #### C UU, ADDONUAPLUS #### [address] Squamous Epithelial Cell,Urine 1-2 Normal 0-2 [facility] Comment on above: Order Comment: Name Collection Type:: Chaidez Catheter Performed By: #### C UU, ADDONUAPLUS #### [address] Urobilinogen,Urine 2 mg/dL High Normal [facility] Comment on above: Order Comment: Name Collection Type:: Chaidez Catheter Performed By: #### C UU, ADDONUAPLUS #### [address] WBC,Urine 10-19 High 0-4 [facility] Comment on above: Order Comment: Name Collection Type:: Chaidez Catheter Performed By: #### C UU, ADDONUAPLUS #### [address] Epithelial cells.squamous [# /area] in Urine sediment by Automated countOrdered By: PROVIDER TEMP on 04-14-2024 Epithelial cells.squamous Auto (Urine sed) [#/Area] 1-2 [HPF] 0-2 [facility] Erythrocyte distribution wid th [Ratio] by Automated countOrdered By: PROVIDER TEMP on 04-14-2024 Erythrocyte distribution width (RBC) [Ratio] 15.6 % High 12.0-14.8 [facility] Comment on above: Performed By: #### C BC, BMP #### [address] [place] [address] [place] Erythrocytes [#/area] in Uri ne sediment by Automated countOrdered By: PROVIDER TEMP on 04-14-2024 RBC Auto (Urine sed) [#/Area] Innumerable [HPF] High 0-4 [facility] Erythrocytes [#/volume] in B lood by Automated countOrdered By: PROVIDER TEMP on 04-14-2024 RBC (Bld) [#/Vol] 4.50 10*6/uL Normal 3.90-5.60 [facility] Comment on above: Performed By: #### C BC, BMP #### [facility] [address] [place] [address] [place] Glucose [Mass/volume] in Ser um or PlasmaOrdered By: Nhan Ramirez on 04-14-2024 Glucose [Mass/Vol] 101 mg/dL High 70-100 [facility] Comment on above: ADA recommended refe rence rangeRandom Glucose Reference Range is dependent on time and content of last meal. Glucose of more than 200 mg/dL in a nonstressed, ambulatory subject supports the diagnosis of Diabetes Mellitus. Result Comment: Orange om Glucose Reference Range is dependent on time and content of last meal. Glucose of more than 200 mg/dL in a nonstressed, ambulatory subject supports the diagnosis of Diabetes Mellitus. ADA recommended reference range Performed By: #### C BC, BMP #### [facility] [address] [place] [address] [place] Glucose [Mass/volume] in Uri ne by Test stripOrdered By: PROVIDER TEMP on 04-14-2024 Glucose Test strip (U) [Mass/Vol] Normal mg/dL Normal [facility] Hematocrit [Volume Fraction] of Blood by Automated countOrdered By: PROVIDER TEMP on 04-14-2024 Hematocrit (Bld) [Volume fraction] 41.0 % Normal 38.8-50.0 [facility] Comment on above: Performed By: #### C BC, BMP #### [facility] [address] [place] [id number] [facility] Hemoglobin Test strip Ql (U) Ordered By: PROVIDER TEMP on 04-14-2024 Hemoglobin Ql (U) See comment Negative [facility] Comment on above: Unable to obtain acc urate result due to color interference. Hemoglobin [Mass/volume] in BloodOrdered By: PROVIDER TEMP on 04-14-2024 Hemoglobin (Bld) [Mass/Vol] 13.9 g/dL Normal 13.0-17.0 [facility] Comment on above: Performed By: #### C BC, BMP #### [facility] [address] [place] [address] [place] Hyaline casts [#/area] in Ur ine sediment by Automated countOrdered By: PROVIDER TEMP on 04-14-2024 Hyaline casts Auto (Urine sed) [#/Area] None [LPF] 0-8 [facility] Ketones [Presence] in Urine by Test stripOrdered By: PROVIDER TEMP on 04-14-2024 Ketones Ql (U) Trace High Negative [facility] Comment on above: Order Comment: Name Collection Type:: Chaidez Catheter Performed By: #### C UU, ADDONUAPLUS #### [facility] [address] [place] [address] [place] Leukocyte esterase [Presence ] in Urine by Test stripOrdered By: PROVIDER TEMP on 04-14-2024 Leukocyte esterase Test strip Ql (U) 4+ High Negative [facility] Comment on above: Order Comment: Name Collection Type:: Chaidez Catheter Performed By: #### C UU, ADDONUAPLUS #### [facility] [address] [place] [address] [place] Leukocytes [#/area] in Urine sediment by Automated countOrdered By: PROVIDER TEMP on 04-14-2024 WBC Auto (Urine sed) [#/Area] 10-19 [HPF] High 0-4 [facility] Leukocytes [#/volume] correc bekah for nucleated erythrocytes in Blood by Automated counOrdered By: PROVIDER TEMP on 04-14-2024 WBC corrected for nucl RBC Auto (Bld) [#/Vol] 13.5 10*3/uL High 4.1-10.5 [facility] Leukocytes [#/volume] in Blo od by Automated countOrdered By: PROVIDER TEMP on 04-14-2024 WBC (Bld) [#/Vol] 13.5 10*3/uL High 4.1-10.5 [facility] Comment on above: Performed By: #### C ANAM, BMP #### [address] Lymphocytes [#/volume] in Bl ood by Automated countOrdered By: PROVIDER TEMP on 04-14-2024 Lymphocytes (Bld) [#/Vol] 0.8 10*3/uL Low 1.00-4.8 [facility] Comment on above: Performed By: #### C ANAM, BMP #### [address] Lymphocytes/100 leukocytes i n Blood by Automated countOrdered By: PROVIDER TEMP on 04-14-2024 Lymphocytes/100 WBC (Bld) 6.2 % Normal . [facility] Comment on above: Performed By: #### C ANAM, BMP #### [address] MCH [Entitic mass] by Automa bekah countOrdered By: PROVIDER TEMP on 04-14-2024 MCH (RBC) [Entitic mass] 30.9 pg Normal 27.5-35.2 [facility] Comment on above: Performed By: #### C ANAM, BMP #### [address] MCHC Auto (RBC) [Mass/Vol]Or dered By: PROVIDER TEMP on 04-14-2024 MCHC (RBC) [Mass/Vol] 33.9 g/dL 32.5-35.6 [facility] MCV [Entitic volume] by Auto mated countOrdered By: PROVIDER TEMP on 04-14-2024 MCV (RBC) [Entitic vol] 91.2 fL Normal 83.5-101 [facility] Comment on above: Performed By: #### C ANAM, BMP #### [address] Monocyte distribution width [Entitic volume] in Blood by AutomatedOrdered By: PROVIDER TEMP on 04-14-2024 Monocyte distribution width Auto (Bld) [Entitic vol] 21.04 % High 0.00-20.00 [facility] Comment on above: For adults in ED, MD W > 20.0 may be associated with a higher risk of sepsis during the first 12 hrs of hospital admission Mucus [Presence] in Urine by AutomatedOrdered By: PROVIDER TEMP on 04-14-2024 Mucus Auto Ql (U) 2+ [LPF] Abnormal [facility] Neutrophils [#/volume] in Bl ood by Automated countOrdered By: PROVIDER TEMP on 04-14-2024 Neutrophils (Bld) [#/Vol] 11.6 10*3/uL High 1.8-7.7 [facility] Comment on above: Performed By: #### C ANAM, BMP #### [facility] [address] Nitrite Test strip Ql (U)Ord ered By: PROVIDER TEMP on 04-14-2024 Nitrite Ql (U) Negative Negative [facility] No Panel InformationOrdered By: Nhan Ramirez on 04-14-2024 Estimated GFR (CKD-EPI) > 60.0 mL/Min [facility] Creatinine Clearance (Chem 52.92 [facility] Nucleated erythrocytes [Pres ence] in Blood by Automated countOrdered By: PROVIDER TEMP on 04-14-2024 Nucleated RBC Auto Ql (Bld) 0.0 /100{WBC} 0-0.5 [facility] Platelet mean volume [Entiti c volume] in Blood by Automated countOrdered By: PROVIDER TEMP on 04-14-2024 Platelet mean volume (Bld) [Entitic vol] 8.8 fL Normal 6.6-10.1 [facility] Comment on above: Performed By: #### C ANAM, BMP #### [facility] [address] [place] [address] [place] Platelets [#/volume] in Bloo d by Automated countOrdered By: PROVIDER TEMP on 04-14-2024 Platelets (Bld) [#/Vol] 225 10*3/uL Normal 150-450 [facility] Comment on above: Performed By: #### C ANAM, BMP #### [facility] [address] [place] [address] [place] Potassium [Moles/volume] in Serum or PlasmaOrdered By: Nhan Ramirez on 04-14-2024 Potassium [Moles/Vol] 3.4 mmol/L Low 3.5-5.1 [facility] Comment on above: Performed By: #### C BC, BMP #### [facility] [address] [place] [address] [place] Protein [Mass/volume] in Uri ne by Test stripOrdered By: PROVIDER TEMP on 04-14-2024 Protein (U) [Mass/Vol] 100 mg/dL High Negative [facility] Comment on above: Order Comment: Name Collection Type:: Chaidez Catheter Performed By: #### C UU, ADDONUAPLUS #### [address] Serum or plasma anion gap de terminationOrdered By: Nhan Ramirez on 04-14-2024 Anion gap [Moles/Vol] 12.3 mmol/L Normal 6.0-15.0 [facility] Comment on above: Performed By: #### C BC, BMP #### [address] Sodium [Moles/volume] in Ser um or PlasmaOrdered By: Nhan Ramirez on 04-14-2024 Sodium [Moles/Vol] 137 mmol/L Normal 136-145 [facility] Comment on above: Performed By: #### C BC, BMP #### [facility] [address] [place] [address] Specific gravity Test strip (U) [Rel density]Ordered By: PROVIDER TEMP on 04-14-2024 Specific gravity (U) [Rel density] 1.024 1.001-1.030 [facility] Urea nitrogen [Mass/volume] in Serum or PlasmaOrdered By: Nhan Ramirez on 04-14-2024 Urea nitrogen [Mass/Vol] 20 mg/dL Normal 7-25 [facility] Comment on above: Performed By: #### C BC, BMP #### [facility] [address] [place] [address] Urine Cultureon 04-14-2024 Bacteria identified Cx Nom (U) No Growth 2 Days PERFORMED BY: [place] [address] PATHOLOGIST SYSTEM SAFETY MANAGER JAMISON ANDINO M.D. Normal [facility] Comment on above: Performed By: #### C UU, ADDONUAPLUS #### [facility] [address] [place] [address] Urine appearanceOrdered By: PROVIDER TEMP on 04-14-2024 Appearance (U) Turbid Critically abnormal Clear [facility] Comment on above: Order Comment: Name Collection Type:: Chaidez Catheter Performed By: #### C UU, ADDONUAPLUS #### [facility] [address] [place] [address] Urine culture routineOrdered By: PROVIDER TEMP on 04-14-2024 Bacteria identified Cx Nom (U) No Growth 2 Days [facility] Urobilinogen Test strip (U) [Mass/Vol]Ordered By: PROVIDER TEMP on 04-14-2024 Urobilinogen (U) [Mass/Vol] 2 mg/dL High Normal [facility] pH of Urine by Test stripOrd ered By: PROVIDER TEMP on 04-14-2024 pH (U) 5.5 [pH] Normal 5.0-9.0 [facility] Comment on above: Order Comment: Name Collection Type:: Chaidez Catheter Performed By: #### C UU, ADDONUAPLUS #### [facility] [address] [place] [address] Laboratory - Chemistry and C hemistry - challengeon 04-13-2024 Bilirubin Ql (U) Negative NEGATIVE [facility] Glucose (U) [Mass/Vol] Negative NEGATIVE [facility] Ketones Ql (U) Negative NEGATIVE [facility] pH (U) 6.0 [pH] 5.0-9.0 [facility] Specific gravity (U) [Rel density] 1.020 1.005-1.025 [facility] Urobilinogen Qn (U) 1.0 {Michel'U}/dL 0.2-1.0 [facility] Laboratory - Specimen inform ationon 04-13-2024 Appearance (U) CLEAR CLEAR [facility] Color (U) YELLOW YELLOW [facility] Laboratory - Urinalysison Leukocyte esterase Test strip Ql (U) Negative NEGATIVE [facility] Mucus Ql (Urine sed) NONE SEEN NONE SEEN [facility] Nitrite Ql (U) Negative NEGATIVE [facility] Protein Ql (U) Negative NEG/TRACE [facility] No Panel Informationon 04-13 Urine Bacteria TRACE #/HPF Abnormal NONE SEEN [facility] Urine Culture Reflexed NO [facility] Urine Microscopic Review YES [facility] Urine Occult Blood LARGE Abnormal NEGATIVE [facility] Urine Other Casts NONE SEEN #/LPF NONE SEEN [facility] Urine Other Crystals None Seen #/HPF None Seen [facility] Urine RBC 20-50 #/HPF Abnormal 0-2 [facility] Urine Squamous Epithelial Cells RARE #/LPF NONE/RARE [facility] Urine WBC NONE SEEN #/HPF NONE SEEN [facility] Basophils Auto (Bld) [#/Vol] on 01-02-2024 Basophils (Bld) [#/Vol] 0.0 10 3/uL 0.0-0.1 [facility] Basophils/100 WBC Auto (Bld) on 01-02-2024 Basophils/100 WBC (Bld) 0.5 % 0.2-2.0 [facility] Eosinophils/100 WBC Auto (Bl d)on 01-02-2024 Eosinophils/100 WBC (Bld) 2.4 % 0.9-7.0 [facility] Erythrocyte distribution wid th Auto (RBC) [Ratio]on 01-02-2024 Erythrocyte distribution width (RBC) [Ratio] 14.0 % 11.0-15.0 [facility] Hematocrit Auto (Bld) [Volum e fraction]on 01-02-2024 Hematocrit (Bld) [Volume fraction] 35.6 % Low 42.0-54.0 [facility] Hemoglobin [Mass/volume] in Bloodon 01-02-2024 Hemoglobin (Bld) [Mass/Vol] 11.7 g/dL Low 14.0-18.0 [facility] Iron binding capacity [Mass/ volume] in Serum or Plasmaon 01-02-2024 Iron binding capacity [Mass/Vol] 330.0 ug/dL 250.0-450.0 [facility] Iron saturation [Mass Fracti on] in Serum or Plasmaon 01-02-2024 Iron saturation [Mass fraction] 49.4 % [facility] Laboratory - Chemistry and C hemistry - challengeon 01-02-2024 Ferritin [Mass/Vol] 81.0 ng/mL 26.0-388.0 [facility] Iron [Mass/Vol] 163.0 ug/dL 65.0-175.0 [facility] Laboratory - Hematology and Cell countson 01-02-2024 Immature granulocytes/100 WBC (Bld) 0.3 % 0.0-0.5 [facility] Leukocytes [#/volume] correc bekah for nucleated erythrocytes in Blood by Automated counon 01-02-2024 WBC corrected for nucl RBC Auto (Bld) [#/Vol] 7.5 10 3/uL 4.0-11.0 [facility] Lymphocytes Auto (Bld) [#/Vo l]on 01-02-2024 Lymphocytes (Bld) [#/Vol] 1.7 10 3/uL 1.2-3.8 [facility] Lymphocytes/100 WBC Auto (Bl d)on 01-02-2024 Lymphocytes/100 WBC (Bld) 22.4 % 20.5-60.0 [facility] MCH Auto (RBC) [Entitic mass ]on 01-02-2024 MCH (RBC) [Entitic mass] 32.7 pg 25.9-34.0 [facility] MCHC Auto (RBC) [Mass/Vol]on 01-02-2024 MCHC (RBC) [Mass/Vol] 32.9 g/dL 29.9-35.2 [facility] MCV Auto (RBC) [Entitic vol] on 01-02-2024 MCV (RBC) [Entitic vol] 99.4 fL High 80.0-94.0 [facility] Monocytes Auto (Bld) [#/Vol] on 01-02-2024 Monocytes (Bld) [#/Vol] 0.6 10 3/uL 0.3-0.8 [facility] Monocytes/100 WBC Auto (Bld) on 01-02-2024 Monocytes/100 WBC (Bld) 8.0 % 1.7-12.0 [facility] Neutrophils Auto (Bld) [#/Vo l]on 01-02-2024 Neutrophils (Bld) [#/Vol] 5.0 10 3/uL 1.4-6.5 [facility] Neutrophils/100 WBC Auto (Bl d)on 01-02-2024 Neutrophils/100 WBC (Bld) 66.4 % 43.0-75.0 [facility] No Panel Informationon 01-01 Eosinophils # (Auto) 0.2 10 3/uL 0.0-0.7 [facility] Immature Granulocyte # (Auto) 0.02 10 3/uL 0.00-0.03 [facility] Platelet mean volume Auto (B ld) [Entitic vol]on 01-02-2024 Platelet mean volume (Bld) [Entitic vol] 10.6 fL 9.5-13.5 [facility] Platelets Auto (Bld) [#/Vol] on 01-02-2024 Platelets (Bld) [#/Vol] 223 10 3/uL 150-450 [facility] RBC Auto (Bld) [#/Vol]on RBC (Bld) [#/Vol] 3.58 10 6/uL Low 4.70-6.10 [facility] Consultation Noteon 12-21-19 Consultation Note [id number] Normal [facility] RAD - CT Reporton 12-21-2023 RAD - CT Report [id number]#[id number] Normal [facility] Basic Metabolic Panelon Creatinine Clr Calc Pharmacy 56.60 Normal [facility] Comment on above: Result Comment: PERF ORMED BY: [facility] [address] [address] PATHOLOGIST SYSTEM SAFETY MANAGER JAMISON ANDINO M.D. Performed By: #### P TT, HEPATIC, PT, CBC, MG, BMP #### [facility] [address] GFR/1.73 sq M.predicted MDRD (S/P/Bld) [Vol rate/Area] mL/min/{1.73_m2} Normal [facility] Comment on above: Performed By: #### P TT, HEPATIC, PT, CBC, MG, BMP #### [facility] [address] [place] [address] [place] Calcium [Mass/volume] in Ser um or PlasmaOrdered By: George Romero on 12-01-2023 Calcium [Mass/Vol] 8.8 mg/dL Normal 8.6-10.3 [facility] Comment on above: Performed By: #### P TT, HEPATIC, PT, CBC, MG, BMP #### [address] Carbon dioxide, total [Moles /volume] in Serum or PlasmaOrdered By: George Romero on 12-01-2023 CO2 [Moles/Vol] 28.2 mmol/L Normal 21.0-31.0 [facility] Comment on above: Performed By: #### P TT, HEPATIC, PT, CBC, MG, BMP #### [address] Chloride [Moles/volume] in S jose or PlasmaOrdered By: George Romero on 12-01-2023 Chloride [Moles/Vol] 109 mmol/L High 98-107 [facility] Comment on above: Performed By: #### P TT, HEPATIC, PT, CBC, MG, BMP #### [facility] [address] Creatinine [Mass/volume] in Serum or PlasmaOrdered By: George Romero on 12-01-2023 Creatinine [Mass/Vol] 0.94 mg/dL Normal 0.70-1.30 [facility] Comment on above: Performed By: #### P TT, HEPATIC, PT, CBC, MG, BMP #### [facility] [address] [place] [address] [place] Erythrocyte distribution wid th [Ratio] by Automated countOrdered By: George Romero on 12-01-2023 Erythrocyte distribution width (RBC) [Ratio] 13.7 % Normal 12.0-14.8 [facility] Comment on above: Performed By: #### P TT, HEPATIC, PT, CBC, MG, BMP #### [facility] [address] Erythrocytes [#/volume] in B lood by Automated countOrdered By: George Romero on 12-01-2023 RBC (Bld) [#/Vol] 2.57 10*6/uL Low 3.90-5.60 [facility] Comment on above: Performed By: #### P TT, HEPATIC, PT, CBC, MG, BMP #### [address] Glucose [Mass/volume] in Ser um or PlasmaOrdered By: George Romero on 12-01-2023 Glucose [Mass/Vol] 88 mg/dL Normal 70-100 [facility] Comment on above: ADA recommended refe rence rangeRandom Glucose Reference Range is dependent on time and content of last meal. Glucose of more than 200 mg/dL in a nonstressed, ambulatory subject supports the diagnosis of Diabetes Mellitus. Result Comment: [place] om Glucose Reference Range is dependent on time and content of last meal. Glucose of more than 200 mg/dL in a nonstressed, ambulatory subject supports the diagnosis of Diabetes Mellitus. ADA recommended reference range Performed By: #### P TT, HEPATIC, PT, CBC, MG, BMP #### [facility] [address] [place] [id number] [place] Hematocrit [Volume Fraction] of Blood by Automated countOrdered By: George Romero on 12-01-2023 Hematocrit (Bld) [Volume fraction] 24.8 % Low 38.8-50.0 [facility] Comment on above: Performed By: #### P TT, HEPATIC, PT, CBC, MG, BMP #### [place] [address] [place] Hemoglobin [Mass/volume] in BloodOrdered By: George Romero on 12-01-2023 Hemoglobin (Bld) [Mass/Vol] 8.5 g/dL Low 13.0-17.0 [facility] Comment on above: Performed By: #### P TT, HEPATIC, PT, CBC, MG, BMP #### [facility] [address] Hemogram CBC Without Diffon 12-01-2023 Mean Corpuscular HGB Conc 34.4 g/dL Normal 32.5-35.6 [facility] Comment on above: Performed By: #### P TT, HEPATIC, PT, CBC, MG, BMP #### [address] WBC (Bld) [#/Vol] 5.0 10*3/uL Normal 4.1-10.5 [facility] Comment on above: Performed By: #### P TT, HEPATIC, PT, CBC, MG, BMP #### [address] Leukocytes [#/volume] correc bekah for nucleated erythrocytes in Blood by Automated counOrdered By: George Romero on 12-01-2023 WBC corrected for nucl RBC Auto (Bld) [#/Vol] 5.0 10*3/uL 4.1-10.5 [facility] MCH [Entitic mass] by Automa bekah countOrdered By: George Romero on 12-01-2023 MCH (RBC) [Entitic mass] 33.2 pg Normal 27.5-35.2 [facility] Comment on above: Performed By: #### P TT, HEPATIC, PT, CBC, MG, BMP #### [address] MCHC Auto (RBC) [Mass/Vol]Or dered By: George Romero on 12-01-2023 MCHC (RBC) [Mass/Vol] 34.4 g/dL 32.5-35.6 [facility] MCV [Entitic volume] by Auto mated countOrdered By: George Romero on 12-01-2023 MCV (RBC) [Entitic vol] 96.7 fL Normal 83.5-101 [facility] Comment on above: Performed By: #### P TT, HEPATIC, PT, CBC, MG, BMP #### [facility] [address] [place] [address] Magnesium [Mass/volume] in S jose or PlasmaOrdered By: George Romero on 12-01-2023 Magnesium [Mass/Vol] 1.6 mg/dL Low 1.9-2.7 [facility] Comment on above: Result Comment: PERF ORMED BY: [place] [address] PATHOLOGIST SYSTEM SAFETY MANAGER JAMISON ANDINO M.D. Performed By: #### P TT, HEPATIC, PT, CBC, MG, BMP #### [address] No Panel InformationOrdered By: George Romero on 12-01-2023 Estimated GFR (CKD-EPI) > 60.0 mL/Min [facility] Creatinine Clearance (Chem 56.60 [facility] Platelet mean volume [Entiti c volume] in Blood by Automated countOrdered By: George Romero on 12-01-2023 Platelet mean volume (Bld) [Entitic vol] 8.8 fL Normal 6.6-10.1 [facility] Comment on above: Result Comment: PERF ORMED BY: [place] [address] PATHOLOGIST SYSTEM SAFETY MANAGER JAMISON ANDINO M.D. Performed By: #### P TT, HEPATIC, PT, CBC, MG, BMP #### [facility] [address] [place] [address] [place] Platelets [#/volume] in Bloo d by Automated countOrdered By: George Romero on 12-01-2023 Platelets (Bld) [#/Vol] 208 10*3/uL Normal 150-450 [facility] Comment on above: Performed By: #### P TT, HEPATIC, PT, CBC, MG, BMP #### [facility] [address] [place] [address] Potassium [Moles/volume] in Serum or PlasmaOrdered By: George Romero on 12-01-2023 Potassium [Moles/Vol] 3.7 mmol/L Normal 3.5-5.1 [facility] Comment on above: Performed By: #### P TT, HEPATIC, PT, CBC, MG, BMP #### [address] Serum or plasma anion gap de terminationOrdered By: George Romero on 12-01-2023 Anion gap [Moles/Vol] 7.5 mmol/L Normal 6.0-15.0 [facility] Comment on above: Performed By: #### P TT, HEPATIC, PT, CBC, MG, BMP #### [address] Sodium [Moles/volume] in Ser um or PlasmaOrdered By: George Romero on 12-01-2023 Sodium [Moles/Vol] 141 mmol/L Normal 136-145 [facility] Comment on above: Performed By: #### P TT, HEPATIC, PT, CBC, MG, BMP #### [address] Urea nitrogen [Mass/volume] in Serum or PlasmaOrdered By: George Romero on 12-01-2023 Urea nitrogen [Mass/Vol] 9 mg/dL Normal 7-25 [facility] Comment on above: Performed By: #### P TT, HEPATIC, PT, CBC, MG, BMP #### [facility] [address] [place] [address] Basic Metabolic Panelon 05 Anion gap [Moles/Vol] 7.2 mmol/L Normal 6.0-15.0 [facility] Comment on above: Performed By: #### C BC, BMP #### [address] Calcium [Mass/Vol] 8.9 mg/dL Normal 8.6-10.3 [facility] Comment on above: Performed By: #### C BC, BMP #### [place] [address] [place] Chloride [Moles/Vol] 107 mmol/L Normal 98-107 [facility] Comment on above: Performed By: #### C BC, BMP #### [address] CO2 [Moles/Vol] 29.5 mmol/L Normal 21.0-31.0 [facility] Comment on above: Performed By: #### C BC, BMP #### [address] Creatinine [Mass/Vol] 0.88 mg/dL Normal 0.70-1.30 [facility] Comment on above: Performed By: #### C BC, BMP #### [place] [address] [place] Creatinine Clr Calc Pharmacy 60.45 Normal [facility] Comment on above: Result Comment: PERF ORMED BY: [place] [address] PATHOLOGIST SYSTEM SAFETY MANAGER JAMISON ANDINO M.D. Performed By: #### C BC, BMP #### [place] [address] [place] GFR/1.73 sq M.predicted MDRD (S/P/Bld) [Vol rate/Area] mL/min/{1.73_m2} Normal [facility] Comment on above: Performed By: #### C BC, BMP #### [address] Glucose [Mass/Vol] 93 mg/dL Normal 70-100 [facility] Comment on above: Result Comment: [place] Glucose Reference Range is dependent on time and content of last meal. Glucose of more than 200 mg/dL in a nonstressed, ambulatory subject supports the diagnosis of Diabetes Mellitus. ADA recommended reference range Performed By: #### C BC, BMP #### [address] Potassium [Moles/Vol] 3.7 mmol/L Normal 3.5-5.1 [facility] Comment on above: Performed By: #### C BC, BMP #### [address] Sodium [Moles/Vol] 140 mmol/L Normal 136-145 [facility] Comment on above: Performed By: #### C BC, BMP #### [address] Urea nitrogen [Mass/Vol] 13 mg/dL Normal 7-25 [facility] Comment on above: Performed By: #### C BC, BMP #### [address] Hemogram CBC Without Diffon 11-30-2023 Erythrocyte distribution width (RBC) [Ratio] 13.7 % Normal 12.0-14.8 [facility] Comment on above: Performed By: #### C BC, BMP #### [address] Hematocrit (Bld) [Volume fraction] 26.4 % Low 38.8-50.0 [facility] Comment on above: Performed By: #### C BC, BMP #### [address] Hemoglobin (Bld) [Mass/Vol] 9.1 g/dL Low 13.0-17.0 [facility] Comment on above: Performed By: #### C BC, BMP #### [address] MCH (RBC) [Entitic mass] 33.3 pg Normal 27.5-35.2 [facility] Comment on above: Performed By: #### C BC, BMP #### [address] MCV (RBC) [Entitic vol] 96.3 fL Normal 83.5-101 [facility] Comment on above: Performed By: #### C BC, BMP #### [address] Mean Corpuscular HGB Conc 34.6 g/dL Normal 32.5-35.6 [facility] Comment on above: Performed By: #### C BC, BMP #### [address] Platelet mean volume (Bld) [Entitic vol] 8.8 fL Normal 6.6-10.1 [facility] Comment on above: Result Comment: PERF ORMED BY: [place] [address] PATHOLOGIST SYSTEM SAFETY MANAGER JAMISON ANDINO M.D. Performed By: #### C BC, BMP #### [address] Platelets (Bld) [#/Vol] 200 10*3/uL Normal 150-450 [facility] Comment on above: Performed By: #### C BC, BMP #### [address] RBC (Bld) [#/Vol] 2.74 10*6/uL Low 3.90-5.60 [facility] Comment on above: Performed By: #### C BC, BMP #### [address] WBC (Bld) [#/Vol] 5.6 10*3/uL Normal 4.1-10.5 [facility] Comment on above: Performed By: #### C BC, BMP #### [address] Magnesiumon 11-30-2023 Magnesium [Mass/Vol] 1.7 mg/dL Low 1.9-2.7 [facility] Comment on above: Result Comment: PERF ORMED BY: [place] [address] PATHOLOGIST SYSTEM SAFETY MANAGER JAMISON ANDINO M.D. Performed By: #### P TT, HEPATIC, PT, CBC, MG, BMP #### [address] PSA Total (Not a Screen)on 0 11-30-2023 PSA Total (Not a Screen) 18.310 ng/mL High 0.000-4.000 [facility] Comment on above: Result Comment: Seri al tumor marker results determined by assays using different manufacturers or methods may not be comparable. [facility] documentation nurse and method: NeurolinkEL DXI, CHEMILUMINESCENT IMMUNOASSAY. PERFORMED BY: [place] [address] PATHOLOGIST SYSTEM SAFETY MANAGER JAMISON ANDINO M.D. Performed By: #### C BC, BMP #### [address] Prostate specific Ag [Mass/v olume] in Serum or PlasmaOrdered By: Syed Buchanan on 11-30-2023 Prostate specific Ag [Mass/Vol] 18.310 ng/mL 0.000-4.000 [facility] Comment on above: Serial tumor marker results determined by assays using different manufacturers or methods may not be comparable.[facility] documentation nurse and method:NeurolinkEL DXI, CHEMILUMINESCENT IMMUNOASSAY. Urine Cultureon 11-30-2023 Bacteria identified Cx Nom (U) Comment clean catch <9,000 colonies/ml mixed bacterial skin contaminants 2 Days PERFORMED BY: [place] [address] PATHOLOGIST SYSTEM SAFETY MANAGER JAMISON ANDINO M.D. Normal [facility] Comment on above: Performed By: #### C BC, BMP #### [address] Urine culture routineOrdered By: Syed Buchanan on 11-30-2023 Bacteria identified Cx Nom (U) 2 Days [facility] ABO/Rh Retypeon 11-29-2023 ABO/RH Recheck Result Negative Normal [facility] Comment on above: Result Comment: PERF ORMED BY: [place] [address] PATHOLOGIST SYSTEM SAFETY MANAGER JAMISON ANDINO M.D. Activated partial thrombopla stin time (aPTT) in platelet poor plasma by coagulation aOrdered By: Bárbara Ramirez on 11-29-2023 aPTT Coag (PPP) [Time] 35.6 s 25.1-36.5 [facility] Comment on above: A hematocrit value g reater than 55% may lead to inaccurate results in coagulation testing. Patients having hematocrit values >55% require a special collection tube for coagulation studies. Please contact the laboratory at [phone] for redraw instructions. Alanine aminotransferase [En zymatic activity/volume] in Serum or PlasmaOrdered By: Bárbara Ramirez on 11-29-2023 ALT [Catalytic activity/Vol] 13 U/L Normal 7-52 [facility] Comment on above: Performed By: #### P TT, HEPATIC, PT, CBC, MG, BMP #### [place] [address] [place] Albumin [Mass/volume] in Ser um or Plasma by Bromocresol green (BCG) dye binding methoOrdered By: Bárbara Ramirez on 11-29-2023 Albumin BCG dye [Mass/Vol] 3.6 g/dL 3.5-5.7 [facility] Alkaline phosphatase [Enzyma tic activity/volume] in Serum or PlasmaOrdered By: Bárbara Ramirez on 11-29-2023 ALP [Catalytic activity/Vol] 117 U/L High 34-104 [facility] Comment on above: Performed By: #### P TT, HEPATIC, PT, CBC, MG, BMP #### [place] [address] [place] Aspartate aminotransferase [ Enzymatic activity/volume] in Serum or PlasmaOrdered By: Bárbara Ramirez on 11-29-2023 AST [Catalytic activity/Vol] 21 U/L Normal 13-39 [facility] Comment on above: Performed By: #### P TT, HEPATIC, PT, CBC, MG, BMP #### [place] [address] [place] Automated basophil %Ordered By: Bárbara Ramirez on 11-29-2023 Basophils/100 WBC (Bld) 0.7 % Normal . [facility] Comment on above: Performed By: #### P TT, HEPATIC, PT, CBC, MG, BMP #### [place] [address] [place] Automated basophil countOrde red By: Bárbara Ramirez on 11-29-2023 Basophils (Bld) [#/Vol] 0.0 10*3/uL Normal 0.0-0.2 [facility] Comment on above: Result Comment: PERF ORMED BY: [place] [address] PATHOLOGIST SYSTEM SAFETY MANAGER JAMISON ANDINO M.D. Performed By: #### P TT, HEPATIC, PT, CBC, MG, BMP #### [address] Automated blood monocyte cou ntOrdered By: Bárbara Ramirez on 11-29-2023 Monocytes (Bld) [#/Vol] 0.7 10*3/uL Normal 0.0-0.8 [facility] Comment on above: Performed By: #### P TT, HEPATIC, PT, CBC, MG, BMP #### [address] Automated eosinophil %Ordere d By: Bárbara Ramirez on 11-29-2023 Eosinophils/100 WBC (Bld) 1.6 % Normal . [facility] Comment on above: Performed By: #### P TT, HEPATIC, PT, CBC, MG, BMP #### [address] Automated eosinophil countOr dered By: Bárbara Ramirez on 11-29-2023 Eosinophils (Bld) [#/Vol] 0.1 10*3/uL Normal 0.0-0.45 [facility] Comment on above: Performed By: #### P TT, HEPATIC, PT, CBC, MG, BMP #### [address] Automated monocyte %Ordered By: Bárbara Ramirez on 11-29-2023 Monocytes/100 WBC (Bld) 9.2 % Normal . [facility] Comment on above: Performed By: #### P TT, HEPATIC, PT, CBC, MG, BMP #### [address] Automated neutrophil %Ordere d By: Bárbara Ramirez on 11-29-2023 Neutrophils/100 WBC (Bld) 65.8 % Normal . [facility] Comment on above: Performed By: #### P TT, HEPATIC, PT, CBC, MG, BMP #### [address] Basic Metabolic Panelon 05-0 Anion gap [Moles/Vol] 10.8 mmol/L Normal 6.0-15.0 Th e [facility] Comment on above: Performed By: #### P TT, HEPATIC, PT, CBC, MG, BMP #### [facility] [address] Calcium [Mass/Vol] 9.1 mg/dL Normal 8.6-10.3 [facility] Comment on above: Performed By: #### P TT, HEPATIC, PT, CBC, MG, BMP #### [facility] [address] Chloride [Moles/Vol] 105 mmol/L Normal 98-107 [facility] Comment on above: Performed By: #### P TT, HEPATIC, PT, CBC, MG, BMP #### [address] CO2 [Moles/Vol] 27.3 mmol/L Normal 21.0-31.0 [facility] Comment on above: Performed By: #### P TT, HEPATIC, PT, CBC, MG, BMP #### [place] [address] [place] Creatinine [Mass/Vol] 0.92 mg/dL Normal 0.70-1.30 [facility] Comment on above: Performed By: #### P TT, HEPATIC, PT, CBC, MG, BMP #### [place] [address] [place] Creatinine Clr Calc Pharmacy 57.83 Normal [facility] Comment on above: Performed By: #### P TT, HEPATIC, PT, CBC, MG, BMP #### [place] [address] [place] GFR/1.73 sq M.predicted MDRD (S/P/Bld) [Vol rate/Area] mL/min/{1.73_m2} Normal [facility] Comment on above: Performed By: #### P TT, HEPATIC, PT, CBC, MG, BMP #### [place] [address] [place] Glucose [Mass/Vol] 83 mg/dL Normal 70-100 [facility] Comment on above: Result Comment: [facility] Glucose Reference Range is dependent on time and content of last meal. Glucose of more than 200 mg/dL in a nonstressed, ambulatory subject supports the diagnosis of Diabetes Mellitus. ADA recommended reference range Performed By: #### P TT, HEPATIC, PT, CBC, MG, BMP #### [facility] [address] Potassium [Moles/Vol] 4.1 mmol/L Normal 3.5-5.1 [facility] Comment on above: Performed By: #### P TT, HEPATIC, PT, CBC, MG, BMP #### [facility] [address] Sodium [Moles/Vol] 139 mmol/L Normal 136-145 [facility] Comment on above: Performed By: #### P TT, HEPATIC, PT, CBC, MG, BMP #### [facility] [address] Urea nitrogen [Mass/Vol] 19 mg/dL Normal 7-25 [facility] Comment on above: Performed By: #### P TT, HEPATIC, PT, CBC, MG, BMP #### [facility] [address] Bilirubin.direct [Mass/volum e] in Serum or PlasmaOrdered By: Bárbara Ramirez on 11-29-2023 Bilirubin.direct [Mass/Vol] 0.20 mg/dL 0.03-0.18 [facility] Bilirubin.total [Mass/volume ] in Serum or PlasmaOrdered By: Bárbara Ramirez on 11-29-2023 Bilirubin [Mass/Vol] 1.4 mg/dL High 0.3-1.0 [facility] Comment on above: Samples from patient s who have taken Naproxen have shown spurious elevation in Total Bilirubin levels. A metabolite of Naproxen, O-desmethylnaproxen, has been shown to interfere with the Jenthaoik-Charles method for measuring Total Bilirubin. Result Comment[facility] who have taken Naproxen have shown spurious elevation in Total Bilirubin levels. A metabolite of Naproxen, O-desmethylnaproxen, has been shown to interfere with the Jendrartiik-Grof method for measuring Total Bilirubin. Performed By: #### P TT, HEPATIC, PT, CBC, MG, BMP #### [address] Complete Blood Count Auto Di ffon 11-29-2023 Erythrocyte distribution width (RBC) [Ratio] 13.8 % Normal 12.0-14.8 [facility] Comment on above: Performed By: #### P TT, HEPATIC, PT, CBC, MG, BMP #### [address] Hematocrit (Bld) [Volume fraction] 30.3 % Low 38.8-50.0 [facility] Comment on above: Performed By: #### P TT, HEPATIC, PT, CBC, MG, BMP #### [address] Hemoglobin (Bld) [Mass/Vol] 10.4 g/dL Low 13.0-17.0 [facility] Comment on above: Performed By: #### P TT, HEPATIC, PT, CBC, MG, BMP #### [address] MCH (RBC) [Entitic mass] 33.1 pg Normal 27.5-35.2 [facility] Comment on above: Performed By: #### P TT, HEPATIC, PT, CBC, MG, BMP #### [address] MCV (RBC) [Entitic vol] 96.4 fL Normal 83.5-101 [facility] Comment on above: Performed By: #### P TT, HEPATIC, PT, CBC, MG, BMP #### [address] Mean Corpuscular HGB Conc 34.3 g/dL Normal 32.5-35.6 [facility] Comment on above: Performed By: #### P TT, HEPATIC, PT, CBC, MG, BMP #### [address] NRBC% 0.1 /100{WBC} Normal 0-0.5 [facility] Comment on above: Performed By: #### P TT, HEPATIC, PT, CBC, MG, BMP #### [address] Platelet mean volume (Bld) [Entitic vol] 9.1 fL Normal 6.6-10.1 [facility] Comment on above: Performed By: #### P TT, HEPATIC, PT, CBC, MG, BMP #### [address] Platelets (Bld) [#/Vol] 207 10*3/uL Normal 150-450 [facility] Comment on above: Performed By: #### P TT, HEPATIC, PT, CBC, MG, BMP #### [address] RBC (Bld) [#/Vol] 3.14 10*6/uL Low 3.90-5.60 [facility] Comment on above: Performed By: #### P TT, HEPATIC, PT, CBC, MG, BMP #### [address] ECG 12 lead ECGon 11-29-2023 ECG 12 lead ECG [facility] [place] [address] Electrocardiograph Report Signed Patient: Jesús Babcock MR#: [id number] : 1940 Acct:[id number] Age/Sex: 83 / M ADM Date: 11/28/23 Loc: Room: [address] [place] [address] Type: ADM IN Attending Dr: George Romero [...] change was found Confirmed by SABI AKINS [facility], ANGELITA ([id number]) on 11/29/2023 4:13:14 PM Referred By: Electronically Signed By:ANGELITA ESCUDERO MD [facility] Transcribed By: MUS Signed By Angelita Escudero MD, [facility] 11/29/23 1613 Normal [facility] Hepatic Panelon 11-29-2023 Albumin [Mass/Vol] 3.6 g/dL Normal 3.5-5.7 [facility] Comment on above: Performed By: #### P TT, HEPATIC, PT, CBC, MG, BMP #### [facility] [address] [place] [address] [place] Bilirubin,Indirect 1.2 mg/dL Normal [facility] Comment on above: Performed By: #### P TT, HEPATIC, PT, CBC, MG, BMP #### [facility] [address] [place] [address] [place] Bilirubin.indirect [Mass/Vol] 0.20 mg/dL High 0.03-0.18 [facility] Comment on above: Performed By: #### P TT, HEPATIC, PT, CBC, MG, BMP #### [facility] [address] INR in Platelet poor plasma by Coagulation assayOrdered By: Bárbara Ramirez on 11-29-2023 INR Coag (PPP) [Relative time] 1.0 {INR} Normal [facility] Comment on above: INR Therapeutic Rang [...] P TT, HEPATIC, PT, CBC, MG, BMP #### [address] Leukocytes [#/volume] in Blo od by Automated countOrdered By: Bárbara Ramirez on 11-29-2023 WBC (Bld) [#/Vol] 7.3 10*3/uL Normal 4.1-10.5 [facility] Comment on above: Performed By: #### P TT, HEPATIC, PT, CBC, MG, BMP #### [address] Lymphocytes [#/volume] in Bl ood by Automated countOrdered By: Bárbara Ramirez on 11-29-2023 Lymphocytes (Bld) [#/Vol] 1.7 10*3/uL Normal 1.00-4.8 [facility] Comment on above: Performed By: #### P TT, HEPATIC, PT, CBC, MG, BMP #### [address] Lymphocytes/100 leukocytes i n Blood by Automated countOrdered By: Bárbara Ramirez on 11-29-2023 Lymphocytes/100 WBC (Bld) 22.7 % Normal . [facility] Comment on above: Performed By: #### P TT, HEPATIC, PT, CBC, MG, BMP #### [address] Magnesiumon 11-29-2023 Magnesium [Mass/Vol] 1.4 mg/dL Low 1.9-2.7 [facility] Comment on above: Result Comment: PERF ORMED BY: [place] [address] PATHOLOGIST SYSTEM SAFETY MANAGER JAMISON ANDINO M.D. Performed By: #### P TT, HEPATIC, PT, CBC, MG, BMP #### [place] [address] [place] Neutrophils [#/volume] in Bl ood by Automated countOrdered By: Bárbara Ramirez on 11-29-2023 Neutrophils (Bld) [#/Vol] 4.8 10*3/uL Normal 1.8-7.7 [facility] Comment on above: Performed By: #### P TT, HEPATIC, PT, CBC, MG, BMP #### [facility] [address] [place] [id number] [facility] Nucleated erythrocytes [Pres ence] in Blood by Automated countOrdered By: Bárbara Ramirez on 11-29-2023 Nucleated RBC Auto Ql (Bld) 0.1 /100{WBC} 0-0.5 [facility] Partial Thromboplastin Timeo n 11-29-2023 aPTT Coag (Bld) [Time] 35.6 s Normal 25.1-36.5 Th e [facility] Comment on above: Result Comment: A he matocrit value greater than 55% may lead to inaccurate results in coagulation testing. Patients having hematocrit values >55% require a special collection tube for coagulation studies. Please contact the laboratory at [phone] for redraw instructions. PERFORMED BY: [address] [place] [address] PATHOLOGIST SYSTEM SAFETY MANAGER JAMISON ANDINO M.D. Performed By: #### P TT, HEPATIC, PT, CBC, MG, BMP #### [facility] [address] [place], [place] [id number] [facility] Protein [Mass/volume] in Ser um or PlasmaOrdered By: Bárbara Ramirez on 11-29-2023 Protein [Mass/Vol] 5.4 g/dL Low 6.4-8.9 [facility] Comment on above: Performed By: #### P TT, HEPATIC, PT, CBC, MG, BMP #### [facility] [address] [place], [place] [id number] [facility] Prothrombin time (PT)Ordered By: Bárbara Ramirez on 11-29-2023 PT Coag (PPP) [Time] 11.5 s Normal 9.0-12.9 [facility] Comment on above: A hematocrit value g reater than 55% may lead to inaccurate results in coagulation testing. Patients having hematocrit values >55% require a special collection tube for coagulation studies. Please contact the laboratory at [phone] for redraw instructions. Result Comment: A he matocrit value greater than 55% may lead to inaccurate results in coagulation testing. Patients having hematocrit values >55% require a special collection tube for coagulation studies. Please contact the laboratory at [phone] for redraw instructions. Performed By: #### P TT, HEPATIC, PT, CBC, MG, BMP #### [address] Serum globulin measurement b y calculation (mass/volume)Ordered By: Bárbara Ramirez on 11-29-2023 Globulin (S) [Mass/Vol] 1.8 g/dL Normal [facility] Comment on above: Performed By: #### P TT, HEPATIC, PT, CBC, MG, BMP #### [address] Serum or plasma albumin/glob ulin mass ratioOrdered By: Bárbara Ramirez on 11-29-2023 Albumin/Globulin [Mass ratio] 2.0 {ratio} Normal [facility] Comment on above: Performed By: #### P TT, HEPATIC, PT, CBC, MG, BMP #### [address] Serum or plasma non-glucuron idated bilirubin measurement (mass/volume)Ordered By: Bárbara Ramirez on 11-29-2023 Bilirubin.indirect [Mass/Vol] 1.2 mg/dL [facility] Type and Screenon 11-29-2023 ABO and Rh group Nom (Bld) Blood group O Rh(D) negative Normal [facility] Comment on above: Order Comment: Trans fuse now? N Result Comment: PERF ORMED BY: [place] [address] PATHOLOGIST SYSTEM SAFETY MANAGER JAMISON ANDINO M.D. Basophils Auto (Bld) [#/Vol] on 11-28-2023 Basophils (Bld) [#/Vol] 0.1 10 3/uL 0.0-0.1 [facility] Basophils/100 WBC Auto (Bld) on 11-28-2023 Basophils/100 WBC (Bld) 0.5 % 0.2-2.0 [facility] Eosinophils/100 WBC Auto (Bl d)on 11-28-2023 Eosinophils/100 WBC (Bld) 0.3 % 0.9-7.0 [facility] Erythrocyte distribution wid th Auto (RBC) [Ratio]on 11-28-2023 Erythrocyte distribution width (RBC) [Ratio] 13.5 % 11.0-15.0 [facility] Estimated glomerular filtrat ion rate (GFR) non- Americanon 11-28-2023 GFR/1.73 sq M.predicted among non-blacks MDRD (S/P/Bld) [Vol rate/Area] 58 mL/min/{1.73_m2} >=60 [facility] Globulin Calc (S) [Mass/Vol] on 11-28-2023 Globulin (S) [Mass/Vol] 3.0 g/dL [facility] Hematocrit Auto (Bld) [Volum e fraction]on 11-28-2023 Hematocrit (Bld) [Volume fraction] 33.2 % 42.0-54.0 [facility] Hemoglobin [Mass/volume] in Bloodon 11-28-2023 Hemoglobin (Bld) [Mass/Vol] 11.2 g/dL 14.0-18.0 [facility] Hemoglobin and Hematocriton 11-28-2023 Hematocrit (Bld) [Volume fraction] 32.4 % Low 38.8-50.0 [facility] Comment on above: Result Comment: PERF ORMED BY: [facility] [address] [place] [address] PATHOLOGIST SYSTEM SAFETY MANAGER JAMISON ANDINO M.D. Performed By: #### C ANAM, BMP #### [facility] [address] Hemoglobin (Bld) [Mass/Vol] 11.0 g/dL Low 13.0-17.0 [facility] Comment on above: Performed By: #### C BC, BMP #### [facility] [address] [place] [id number] [place] INR in Platelet poor plasma by Coagulation assayon 11-28-2023 INR Coag (PPP) [Relative time] 1.02 {INR} [facility] Comment on above: DESIRED INR:2.0-3.0 CONDITIONS NOT LISTED BELOW2.5-3.5 FOR PROSTHETIC HEART VALVE REPLACEMENT2.5-3.5 RECURRENT THROMBOSIS Laboratory - Chemistry and C hemistry - challengeon 11-28-2023 Albumin [Mass/Vol] 3.7 g/dL 3.4-5.0 [facility] ALP [Catalytic activity/Vol] 175 U/L 46-116 [facility] ALT [Catalytic activity/Vol] 24 U/L 16-63 [facility] AST [Catalytic activity/Vol] 24 U/L 15-37 [facility] Bilirubin [Mass/Vol] 1.1 mg/dL 0.2-1.0 [facility] Calcium [Mass/Vol] 9.4 mg/dL 8.5-10.1 [facility] Chloride [Moles/Vol] 102 mmol/L 98-107 [facility] CO2 [Moles/Vol] 28.7 mmol/L 21.0-32.0 [facility] Creatinine [Mass/Vol] 1.19 mg/dL 0.70-1.30 [facility] GFR/1.73 sq M.predicted MDRD (S/P/Bld) [Vol rate/Area] mL/min/{1.73_m2} >=60 [facility] Glucose [Mass/Vol] 114 mg/dL 74-106 [facility] Lactate [Moles/Vol] 1.4 mmol/L 0.4-2.0 [facility] Potassium [Moles/Vol] 3.9 mmol/L 3.5-5.1 [facility] Protein [Mass/Vol] 6.7 g/dL 6.4-8.2 [facility] Sodium [Moles/Vol] 140 mmol/L 136-145 [facility] Urea nitrogen [Mass/Vol] 23.0 mg/dL 7.0-18.0 [facility] Urea nitrogen/Creatinine [Mass ratio] 19.3 mg/mg [facility] Laboratory - Hematology and Cell countson 11-28-2023 Immature granulocytes/100 WBC (Bld) 0.4 % 0.0-0.5 [facility] LeukoReduced RBCon LeukoReduced RBC NOT AVAILABLE Normal [facility] Leukocytes [#/volume] correc bekah for nucleated erythrocytes in Blood by Automated counon 11-28-2023 WBC corrected for nucl RBC Auto (Bld) [#/Vol] 9.2 10 3/uL 4.0-11.0 [facility] Lymphocytes Auto (Bld) [#/Vo l]on 11-28-2023 Lymphocytes (Bld) [#/Vol] 1.4 10 3/uL 1.2-3.8 [facility] Lymphocytes/100 WBC Auto (Bl d)on 11-28-2023 Lymphocytes/100 WBC (Bld) 15.2 % 20.5-60.0 [facility] MCH Auto (RBC) [Entitic mass ]on 11-28-2023 MCH (RBC) [Entitic mass] 32.7 pg 25.9-34.0 [facility] MCHC Auto (RBC) [Mass/Vol]on 11-28-2023 MCHC (RBC) [Mass/Vol] 33.7 g/dL 29.9-35.2 [facility] MCV Auto (RBC) [Entitic vol] on 11-28-2023 MCV (RBC) [Entitic vol] 96.8 fL 80.0-94.0 [facility] Monocytes Auto (Bld) [#/Vol] on 11-28-2023 Monocytes (Bld) [#/Vol] 0.5 10 3/uL 0.3-0.8 [facility] Monocytes/100 WBC Auto (Bld) on 11-28-2023 Monocytes/100 WBC (Bld) 5.8 % 1.7-12.0 [facility] Neutrophils Auto (Bld) [#/Vo l]on 11-28-2023 Neutrophils (Bld) [#/Vol] 7.2 10 3/uL 1.4-6.5 [facility] Neutrophils/100 WBC Auto (Bl d)on 11-28-2023 Neutrophils/100 WBC (Bld) 77.8 % 43.0-75.0 [facility] No Panel Informationon 11-27 Eosinophils # (Auto) 0.0 10 3/uL 0.0-0.7 [facility] Immature Granulocyte # (Auto) 0.04 10 3/uL 0.00-0.03 [facility] Platelet mean volume Auto (B ld) [Entitic vol]on 11-28-2023 Platelet mean volume (Bld) [Entitic vol] 10.5 fL 9.5-13.5 [facility] Platelets Auto (Bld) [#/Vol] on 11-28-2023 Platelets (Bld) [#/Vol] 208 10 3/uL 150-450 [facility] Prothrombin time (PT)on PT Coag (PPP) [Time] 10.8 s 9.0-11.6 [facility] RBC Auto (Bld) [#/Vol]on RBC (Bld) [#/Vol] 3.43 10 6/uL 4.70-6.10 [facility] Serum or plasma albumin/glob ulin mass ratioon 11-28-2023 Albumin/Globulin [Mass ratio] 1.2 {ratio} [facility] Serum or plasma anion gap de terminationon 11-28-2023 Anion gap [Moles/Vol] 13.2 mmol/L [facility] Automated basophil %Ordered By: John Adam on 11-07-2023 Basophils/100 WBC (Bld) 0.4 % Normal . [facility] Comment on above: Performed By: #### C ANAM, BMP #### [facility] [address] [place] [address] Automated basophil countOrde red By: John Adam on 11-07-2023 Basophils (Bld) [#/Vol] 0.0 10*3/uL Normal 0.0-0.2 [facility] Comment on above: Result Comment: PERF ORMED BY: [place] [address] PATHOLOGIST SYSTEM SAFETY MANAGER JAMISON ANDINO M.D. Performed By: #### C BC, BMP #### [facility] [address] [place] [address] Automated blood monocyte cou ntOrdered By: John Adam on 11-07-2023 Monocytes (Bld) [#/Vol] 0.5 10*3/uL Normal 0.0-0.8 [facility] Comment on above: Performed By: #### C BC, BMP #### [address] Automated eosinophil %Ordere d By: John Adam on 11-07-2023 Eosinophils/100 WBC (Bld) 1.3 % Normal . [facility] Comment on above: Performed By: #### C BC, BMP #### [address] Automated eosinophil countOr dered By: John Adam on 11-07-2023 Eosinophils (Bld) [#/Vol] 0.1 10*3/uL Normal 0.0-0.45 [facility] Comment on above: Performed By: #### C ANAM, BMP #### [address] Automated monocyte %Ordered By: John Adam on 11-07-2023 Monocytes/100 WBC (Bld) 7.0 % Normal . [facility] Comment on above: Performed By: #### C BC, BMP #### [address] Automated neutrophil %Ordere d By: John Adam on 11-07-2023 Neutrophils/100 WBC (Bld) 70.6 % Normal . [facility] Comment on above: Performed By: #### C BC, BMP #### [address] Basic Metabolic Panelon 10-28 GFR/1.73 sq M.predicted MDRD (S/P/Bld) [Vol rate/Area] mL/min/{1.73_m2} Normal [facility] Comment on above: Performed By: #### C BC, BMP #### [address] Calcium [Mass/volume] in Ser um or PlasmaOrdered By: John Adam on 11-07-2023 Calcium [Mass/Vol] 10.0 mg/dL Normal 8.6-10.3 [facility] Comment on above: Result Comment: PERF ORMED BY: [place] [address] PATHOLOGIST SYSTEM SAFETY MANAGER JAMISON ANDINO M.D. Performed By: #### C BC, BMP #### [address] Carbon dioxide, total [Moles /volume] in Serum or PlasmaOrdered By: John Adam on 11-07-2023 CO2 [Moles/Vol] 33.6 mmol/L High 21.0-31.0 [facility] Comment on above: Performed By: #### C BC, BMP #### [address] Chloride [Moles/volume] in S jose or PlasmaOrdered By: John Adam on 11-07-2023 Chloride [Moles/Vol] 100 mmol/L Normal 98-107 [facility] Comment on above: Performed By: #### C BC, BMP #### [address] Complete Blood Count Auto Di ffon 11-07-2023 Mean Corpuscular HGB Conc 33.9 g/dL Normal 32.5-35.6 [facility] Comment on above: Performed By: #### C BC, BMP #### [address] NRBC% 0.1 /100{WBC} Normal 0-0.5 [facility] Comment on above: Performed By: #### C BC, BMP #### [address] Creatinine [Mass/volume] in Serum or PlasmaOrdered By: John Adam on 11-07-2023 Creatinine [Mass/Vol] 1.05 mg/dL Normal 0.70-1.30 [facility] Comment on above: Performed By: #### C BC, BMP #### [address] [address] [place] Erythrocyte distribution wid th [Ratio] by Automated countOrdered By: John Adam on 11-07-2023 Erythrocyte distribution width (RBC) [Ratio] 14.0 % Normal 12.0-14.8 [facility] Comment on above: Performed By: #### C ANAM, BMP #### [address] Erythrocytes [#/volume] in B lood by Automated countOrdered By: John Adam on 11-07-2023 RBC (Bld) [#/Vol] 4.60 10*6/uL Normal 3.90-5.60 [facility] Comment on above: Performed By: #### C ANAM, BMP #### [address] Glucose [Mass/volume] in Ser um or PlasmaOrdered By: John Adam on 11-07-2023 Glucose [Mass/Vol] 111 mg/dL High 70-100 [facility] Comment on above: ADA recommended refe rence rangeRandom Glucose Reference Range is dependent on time and content of last meal. Glucose of more than 200 mg/dL in a nonstressed, ambulatory subject supports the diagnosis of Diabetes Mellitus. Result Comment: [place] om Glucose Reference Range is dependent on time and content of last meal. Glucose of more than 200 mg/dL in a nonstressed, ambulatory subject supports the diagnosis of Diabetes Mellitus. ADA recommended reference range Performed By: #### C BC, BMP #### [address] Hematocrit [Volume Fraction] of Blood by Automated countOrdered By: John Adam on 11-07-2023 Hematocrit (Bld) [Volume fraction] 44.3 % Normal 38.8-50.0 [facility] Comment on above: Performed By: #### C ANAM, BMP #### [address] Hemoglobin [Mass/volume] in BloodOrdered By: John Adam on 11-07-2023 Hemoglobin (Bld) [Mass/Vol] 15.0 g/dL Normal 13.0-17.0 [facility] Comment on above: Performed By: #### C BC, BMP #### [address] Leukocytes [#/volume] correc bekah for nucleated erythrocytes in Blood by Automated counOrdered By: John Adam on 11-07-2023 WBC corrected for nucl RBC Auto (Bld) [#/Vol] 7.5 10*3/uL 4.1-10.5 [facility] Leukocytes [#/volume] in Blo od by Automated countOrdered By: John Adam on 11-07-2023 WBC (Bld) [#/Vol] 7.5 10*3/uL Normal 4.1-10.5 [facility] Comment on above: Performed By: #### C ANAM, BMP #### [address] Lymphocytes [#/volume] in Bl ood by Automated countOrdered By: John Adam on 11-07-2023 Lymphocytes (Bld) [#/Vol] 1.6 10*3/uL Normal 1.00-4.8 [facility] Comment on above: Performed By: #### C ANAM, BMP #### [place] [address] [place] Lymphocytes/100 leukocytes i n Blood by Automated countOrdered By: John Adam on 11-07-2023 Lymphocytes/100 WBC (Bld) 20.7 % Normal . [facility] Comment on above: Performed By: #### C ANAM, BMP #### [place] [address] [place] MCH [Entitic mass] by Automa bekah countOrdered By: John Adam on 11-07-2023 MCH (RBC) [Entitic mass] 32.7 pg Normal 27.5-35.2 [facility] Comment on above: Performed By: #### C BC, BMP #### [address] MCHC Auto (RBC) [Mass/Vol]Or dered By: John Adam on 11-07-2023 MCHC (RBC) [Mass/Vol] 33.9 g/dL 32.5-35.6 [facility] MCV [Entitic volume] by Auto mated countOrdered By: John Adam on 11-07-2023 MCV (RBC) [Entitic vol] 96.3 fL Normal 83.5-101 [facility] Comment on above: Performed By: #### C BC, BMP #### [address] Neutrophils [#/volume] in Bl ood by Automated countOrdered By: John Adam on 11-07-2023 Neutrophils (Bld) [#/Vol] 5.3 10*3/uL Normal 1.8-7.7 [facility] Comment on above: Performed By: #### C ANAM, BMP #### [address] No Panel InformationOrdered By: John Adam on 11-07-2023 Estimated GFR (CKD-EPI) > 60.0 mL/Min [facility] Creatinine Clearance (Chem N/A [facility] Nucleated erythrocytes [Pres ence] in Blood by Automated countOrdered By: John Adam on 11-07-2023 Nucleated RBC Auto Ql (Bld) 0.1 /100{WBC} 0-0.5 [facility] Platelet mean volume [Entiti c volume] in Blood by Automated countOrdered By: John Adam on 11-07-2023 Platelet mean volume (Bld) [Entitic vol] 8.7 fL Normal 6.6-10.1 [facility] Comment on above: Performed By: #### C BC, BMP #### [facility] [address] [place] [address] Platelets [#/volume] in Bloo d by Automated countOrdered By: John Adam on 11-07-2023 Platelets (Bld) [#/Vol] 228 10*3/uL Normal 150-450 [facility] Comment on above: Performed By: #### C BC, BMP #### [address] Potassium [Moles/volume] in Serum or PlasmaOrdered By: John Adam on 11-07-2023 Potassium [Moles/Vol] 4.2 mmol/L Normal 3.5-5.1 [facility] Comment on above: Performed By: #### C BC, BMP #### [address] Serum or plasma anion gap de terminationOrdered By: John Adam on 11-07-2023 Anion gap [Moles/Vol] 10.6 mmol/L Normal 6.0-15.0 [facility] Comment on above: Performed By: #### C BC, BMP #### [address] Sodium [Moles/volume] in Ser um or PlasmaOrdered By: John Adam on 11-07-2023 Sodium [Moles/Vol] 140 mmol/L Normal 136-145 [facility] Comment on above: Performed By: #### C BC, BMP #### [address] Urea nitrogen [Mass/volume] in Serum or PlasmaOrdered By: John Adam on 11-07-2023 Urea nitrogen [Mass/Vol] 21 mg/dL Normal 7-25 [facility] Comment on above: Performed By: #### C BC, BMP #### [address] ECG 12 lead ECGon 10-24-2023 ECG 12 lead ECG [facility] [place] [address] [place] [address] Electrocardiograph Report Signed Patient: Jesús Babcock MR#: [id number] : 1940 Acct:[id number] Age/Sex: 83 / M ADM Date: 10/24/23 Loc: EKGCARDIO Room: Type: [facility] Attending Dr: Sushil Goodman MD Ordering Provider: Sushil Goodman MD Date of Service: 10/24/23 ECG/ECG 12 [...] previous ECGs available Confirmed by Sushil Goodman ([id number]) on 11/07/2023 5:45:22 PM Referred By: Electronically Signed By:Sushil Goodman Transcribed By: MUS Signed By Sushil Goodman MD 11/07/23 4056 Normal [facility] XR cerv spine AP/LAT/FLX/EXT on 10-11-2023 XR cerv spine AP/LAT/FLX/EXT [facility] Main [place] [address] [place] [address] XRay Report Signed Patient: Jesús Babcock MR#: [id number] : 1940 Acct:[id number] Age/Sex: 83 / M ADM Date: 10/11/23 Loc: D Room: Type: [facility] Attending Dr: Lesvia VIRAMONTESC Copies to: LUKE Aaron Ordering Provider: LUKE [...] Waylon Whitfield M.D.10/11/2023 4:43 PM Dictation Location: [place] [address] Transcribed By: SYED 10/11/23 8566 Dictated By: Waylon Whitfield II, MD 10/11/23 164 Signed By: 10/11/23 164 Normal [facility] XR lumbar spine 6V w bending on 10-11-2023 XR lumbar spine 6V w bending [facility] Main [address] [address] XRay Report Signed Patient: Jesús Babcock MR#: [id number] : 1940 Acct:[id number] Age/Sex: 83 / M ADM Date: 10/11/23 Loc: XD Room: Type: [facility] Attending Dr: Lesvia Noguera NP-C Copies to: LUKE Aaron Ordering Provider: LUKE [...] Waylon Whitfield M.D.10/11/2023 4:54 PM Dictation Location: [place] [address] Transcribed By: SYED 10/11/231653 Dictated By: Waylon Whitfield II, MD 10/11/231651 Signed By: 03/14/24 1654 Normal [facility] FOLATE, RBCon 10-27-2022 Folate, Hemolysate 293.0 ng/mL Normal Not Estab. [facility] Comment on above: Performed By: #### C BC #### [facility] [address] [place] [address] Dr. Haile Omalley Folate, RBC 731 ng/mL Normal >498 [facility] Comment on above: Performed By: #### C BC #### [facility] [address] [place] [address] Dr. Haile Omalley Hematocrit (Bld) [Volume fraction] 40.1 % Normal 37.5-51.0 [facility] Comment on above: Performed By: #### C BC #### [facility] [address] [place] [address] Dr. Haile Omalley CBC AUTO DIFFon 10-25-2022 BASO # 0.0 103/ul Normal 0.0-0.1 [facility] Comment on above: Performed By: #### C BC #### [facility] [address] [place] [address] Dr. Haile Omalley Basophils/100 WBC (Bld) 0.3 % Normal 0.2-2.0 [facility] Comment on above: Performed By: #### C BC #### [facility] [address] [place] [address] Dr. Haile Omalley EO # 0.1 103/ul Normal 0.0-0.7 [facility] Comment on above: Performed By: #### C BC #### [facility] [address] [place] [address] Dr. Haile Omalley Eosinophils/100 WBC (Bld) 1.4 % Normal 0.9-7.0 [facility] Comment on above: Performed By: #### C BC #### [facility] [address] [place] [address] Dr. Haile Omalley Erythrocyte distribution width (RBC) [Ratio] 13.3 % Normal 11.0-15.0 [facility] Comment on above: Performed By: #### C BC #### [facility] [address] [place] [address] Dr. Haile Omalley Hematocrit (Bld) [Volume fraction] 40.8 % Critically low 42.0-54.0 [facility] Comment on above: Performed By: #### C BC #### [facility] [address] [place] [address] Dr. Haile Omalley Hemoglobin (Bld) [Mass/Vol] 13.8 g/dL Critically low 14.0-18.0 [facility] Comment on above: Performed By: #### C BC #### [facility] [address] [place] [address] Dr. Haile Omalley IG # 0.04 10e3/ul Critically high 0.00-0.03 [facility] Comment on above: Performed By: #### C BC #### [facility] [address] [place] [address] Dr. Haile Omalley IG % 0.5 % Normal 0.0-0.5 [facility] Comment on above: Performed By: #### C BC #### [facility] [address] [place] [address] Dr. Haile Omalley LYMPH # 1.4 103/ul Normal 1.2-3.8 [facility] Comment on above: Performed By: #### C BC #### [facility] [address] [place] [address] Dr. Haile Omalley Lymphocytes/100 WBC (Bld) 16.4 % Critically low 20.5-60.0 [facility] Comment on above: Performed By: #### C BC #### [facility] [address] [place] [address] Dr. Haile Omalley MANUAL DIFF REQ NO Normal [facility] Comment on above: Performed By: #### C BC #### [facility] [address] [place] [address] Dr. Haile Omalley MCH (RBC) [Entitic mass] 32.0 pg Normal 25.9-34.0 [facility] Comment on above: Performed By: #### C BC #### [facility] [address] [place] [address] Dr. Haile Omalley MCHC (RBC) [Mass/Vol] 33.8 g/dL Normal 29.9-35.2 [facility] Comment on above: Performed By: #### C BC #### [facility] [address] [place] [address] [address] Haile Omalley MCV (RBC) [Entitic vol] 94.7 fL Critically high 80.0-94.0 [facility] Comment on above: Performed By: #### C BC #### [facility] [address] [place] [address] [address] Haile Omalley MONO # 0.8 103/ul Normal 0.3-0.8 [facility] Comment on above: Performed By: #### C BC #### [facility] [address] [place] [address] Dr. Haile Omalley Monocytes/100 WBC (Bld) 9.6 % Normal 1.7-12.0 [facility] Comment on above: Performed By: #### C BC #### [facility] [address] [place] [address] Dr. Haile Omalley NEUT # 6.2 103/ul Normal 1.4-6.5 [facility] Comment on above: Performed By: #### C BC #### [facility] [address] [place] [address] Dr. Haile Omalley Neutrophils/100 WBC (Bld) 71.8 % Normal 43.0-75.0 [facility] Comment on above: Performed By: #### C BC #### [facility] [address] [place] [address] Dr. Haile Omalley Platelet mean volume (Bld) [Entitic vol] 10.6 fL Normal 9.5-13.5 [facility] Comment on above: Performed By: #### C BC #### [facility] [address] [place] [address] Dr. Haile Omalley PLT 212 103/ul Normal 150-450 [facility] Comment on above: Performed By: #### C BC #### [facility] [address] [place] [address] Dr. Haile Omalley RBC 4.31 106/ul Critically low 4.70-6.10 [facility] Comment on above: Performed By: #### C BC #### [facility] [address] [place] [address] Dr. Haile Omalley WBC 8.6 103/ul Normal 4.0-11.0 [facility] Comment on above: Performed By: #### C BC #### [facility] [address] [place] [address] Dr. Haile Omalley FERRITINon 10-25-2022 Ferritin [Mass/Vol] 395.0 ng/mL Critically high 26.0-388.0 [facility] Comment on above: Performed By: #### C BC #### [facility] [address] [place] [address] Dr. Haile Omalley IRON AND TIBCon 10-25-2022 % SATURATION 11.7 % Normal [facility] Comment on above: Performed By: #### C BC #### [facility] [address] [place] [address] Dr. Haile Omalley Iron [Mass/Vol] 31.0 ug/dL Critically low 65.0-175.0 [facility] Comment on above: Performed By: #### C BC #### [facility] [address] [place] [address] Dr. Haile Omalley TIBC DIRECT 264.0 ug/dL Normal 250.0-450.0 [facility] Comment on above: Performed By: #### C BC #### [facility] [address] [place] [address] Dr. Haile Omalley VITAMIN B12on 10-25-2022 Cobalamin (Vitamin B12) [Mass/Vol] 531.0 pg/mL Normal 193.0-986.0 [facility] Comment on above: Performed By: #### C BC #### [facility] [address] [place] [address] Dr. Haile Omalley UA RANDOM W/MICROSCOPICon BACTERIA NONE SEEN Normal NONE SEEN [facility] Comment on above: Performed By: #### U AMIC #### [facility] [address] [place] [address] Dr. Haile Omalley Bilirubin Ql (U) Negative Normal NEGATIVE [facility] Comment on above: Performed By: #### U AMIC #### [facility] [address] [place] [address] Dr. Haile Omalley CAST NONE SEEN Normal NONE SEEN [facility] Comment on above: Performed By: #### U AMIC #### [facility] [address] [place] [address] Dr. Haile Omalley Clarity (U) CLEAR Normal CLEAR [facility] Comment on above: Performed By: #### U AMIC #### [facility] [address] [place] [address] Dr. Haile Omalley Color (U) YELLOW Normal YELLOW [facility] Comment on above: Performed By: #### U AMIC #### [facility] [address] [place] [address] Dr. Haile Omalley Crystals LM Nom (Urine sed) NONE SEEN Normal NONE SEEN [facility] Comment on above: Performed By: #### U AMIC #### [facility] [address] [place] [address] Dr. Haile Omalley Epithelial cells LM Ql (Urine sed) RARE Normal NONE SEEN /RARE [facility] Comment on above: Performed By: #### U AMIC #### [facility] [address] [place] [address] Dr. Haile Omalley Glucose Ql (U) Negative Normal NEGATIVE [facility] Comment on above: Performed By: #### U AMIC #### [facility] [address] [place] [address] Dr. Haile Omalley Hemoglobin Ql (U) Negative Normal NEGATIVE [facility] Comment on above: Performed By: #### U AMIC #### [facility] [address] [place] [address] Dr. Haile Omalley Ketones Ql (U) Negative Normal NEGATIVE [facility] Comment on above: Performed By: #### U AMIC #### [facility] [address] [place] [address] Dr. Haile Omalley LEUKOCYTES Negative Normal NEGATIVE [facility] Comment on above: Performed By: #### U AMIC #### [facility] [address] [address] [address] Haile Omalley MUCOUS NONE SEEN Normal NONE SEEN [facility] Comment on above: Performed By: #### U AMIC #### [facility] [address] [place] [address] Dr. Haile Omalley Nitrite Ql (U) Negative Normal NEGATIVE [facility] Comment on above: Performed By: #### U AMIC #### [facility] [address] [place] [address] Dr. Haile Omalley pH (U) 8.0 [pH] Normal 5-9 [facility] Comment on above: Performed By: #### U AMIC #### [facility] [address] [place] [address] Dr. Haile Omalley RBC NONE SEEN Abnormal 0-2 [facility] Comment on above: Performed By: #### U AMIC #### [facility] [address] [place] [address] Dr. Haile Omalley SPEC GRAVITY 1.015 Normal 1.005-<=1.0 25 [facility] Comment on above: Performed By: #### U AMIC #### [facility] [address] [place] [address] Dr. Haile Omalley UA PROTEIN Negative Normal NEGATIVE/ TRACE [facility] Comment on above: Performed By: #### U AMIC #### [facility] [address] [place] [address] Dr. Haile Omalley Urobilinogen Qn (U) 4 {Michel'U}/dL Abnormal 0.2 - 1.0 [facility] Comment on above: Performed By: #### U AMIC #### [facility] [address] [place] [address] Dr. Haile Omalley WBC NONE SEEN Normal NONE SEEN [facility] Comment on above: Performed By: #### U AMIC #### [facility] [address] [place] [address] Dr. Haile Omalley CBC AUTO DIFFon 07-18-2022 BASO # 0.0 103/ul Normal 0.0-0.1 [facility] Comment on above: Performed By: #### C BC #### [facility] [address] [address] [address] Haile Omalley Basophils/100 WBC (Bld) 0.3 % Normal 0.2-2.0 [facility] Comment on above: Performed By: #### C BC #### [facility] [address] [address] [address] Haile Omalley EO # 0.1 103/ul Normal 0.0-0.7 [facility] Comment on above: Performed By: #### C BC #### [facility] [address] [address] [address] Haile Omalley Eosinophils/100 WBC (Bld) 1.0 % Normal 0.9-7.0 [facility] Comment on above: Performed By: #### C BC #### [facility] [address] [place] [address] Dr. Haile Omalley Erythrocyte distribution width (RBC) [Ratio] 13.3 % Normal 11.0-15.0 [facility] Comment on above: Performed By: #### C BC #### [facility] [address] [place] [address] Dr. Haile Omalley Hematocrit (Bld) [Volume fraction] 40.0 % Critically low 42.0-54.0 [facility] Comment on above: Performed By: #### C BC #### [facility] [address] [place] [address] Dr. Haile Omalley Hemoglobin (Bld) [Mass/Vol] 13.5 g/dL Critically low 14.0-18.0 [facility] Comment on above: Performed By: #### C BC #### [facility] [address] [place] [address] Dr. Haile Omalley IG # 0.02 10e3/ul Normal 0.00-0.03 [facility] Comment on above: Performed By: #### C BC #### [facility] [address] [address] [address] Haile Omalley IG % 0.3 % Normal 0.0-0.5 [facility] Comment on above: Performed By: #### C BC #### [facility] [address] [place] [address] Dr. Haile Omalley LYMPH # 1.5 103/ul Normal 1.2-3.8 [facility] Comment on above: Performed By: #### C BC #### [facility] [address] [place] [address] Dr. Haile Omalley Lymphocytes/100 WBC (Bld) 22.1 % Normal 20.5-60.0 [facility] Comment on above: Performed By: #### C BC #### [facility] [address] [place] [address] Dr. Haile Omalley MANUAL DIFF REQ NO Normal [facility] Comment on above: Performed By: #### C BC #### [facility] [address] [place] [address] Dr. Haile Omalley MCH (RBC) [Entitic mass] 33.0 pg Normal 25.9-34.0 [facility] Comment on above: Performed By: #### C BC #### [facility] [address] [place] [address] Dr. Haile Omalley MCHC (RBC) [Mass/Vol] 33.8 g/dL Normal 29.9-35.2 [facility] Comment on above: Performed By: #### C BC #### [facility] [address] [place] [address] Dr. Haile Omalley MCV (RBC) [Entitic vol] 97.8 fL Critically high 80.0-94.0 [facility] Comment on above: Performed By: #### C BC #### [facility] [address] [place] [address] Dr. Haile Omalley MONO # 0.7 103/ul Normal 0.3-0.8 [facility] Comment on above: Performed By: #### C BC #### [facility] [address] [place] [address] Dr. Haile Omalley Monocytes/100 WBC (Bld) 10.6 % Normal 1.7-12.0 [facility] Comment on above: Performed By: #### C BC #### [facility] [address] [place] [address] Dr. Haile Omalely NEUT # 4.6 103/ul Normal 1.4-6.5 [facility] Comment on above: Performed By: #### C BC #### [facility] [address] [place] [address] Dr. Haile Omalley Neutrophils/100 WBC (Bld) 65.7 % Normal 43.0-75.0 [facility] Comment on above: Performed By: #### C BC #### [facility] [address] [place] [address] Dr. Haile Omalley Platelet mean volume (Bld) [Entitic vol] 10.5 fL Normal 9.5-13.5 [facility] Comment on above: Performed By: #### C BC #### [facility] [address] [place] [address] Dr. Haile Omalley PLT 177 103/ul Normal 150-450 [facility] Comment on above: Performed By: #### C BC #### [facility] [address] [place] [address] Dr. Haile Omalley RBC 4.09 106/ul Critically low 4.70-6.10 [facility] Comment on above: Performed By: #### C BC #### [facility] [address] [place] [address] Dr. Haile Omalley WBC 7.0 103/ul Normal 4.0-11.0 [facility] Comment on above: Performed By: #### C BC #### [facility] [address] [place] [address] Dr. Haile Omalley PROF CHEM 8 (BAS METB)on Anion gap [Moles/Vol] 6.9 mmol/L Normal [facility] Comment on above: Performed By: #### B MP #### [facility] [address] [place] [address] Dr. Haile Omalley Calcium [Mass/Vol] 9.0 mg/dL Normal 8.5-10.1 [facility] Comment on above: Performed By: #### B MP #### [facility] [address] [address] [address] Haile Omalley Chloride [Moles/Vol] 99 mmol/L Normal 98-107 [facility] Comment on above: Performed By: #### B MP #### [facility] [address] [address] [address] Haile Omalley CO2 [Moles/Vol] 35.8 mmol/L Critically high 21.0-32.0 [facility] Comment on above: Performed By: #### B MP #### [facility] [address] [address] [address] Haile Omalley Creatinine [Mass/Vol] 1.09 mg/dL Normal 0.70-1.30 [facility] Comment on above: Performed By: #### B MP #### [facility] [address] [place] [address] Dr. Haile Omalley EGFR-AF SAMOAN >60 Normal >=60 [facility] Comment on above: Performed By: #### B MP #### [facility] [address] [place] [address] Dr. Haile Omalley EGFR-NON AF SAMOAN >60 Normal >=60 [facility] Comment on above: Performed By: #### B MP #### [facility] [address] [place] [address] Dr. Haile Omalley Glucose [Mass/Vol] 114 mg/dL Critically high 74-106 [facility] Comment on above: Performed By: #### B MP #### [facility] [address] [address] [address] Haile Omalley Potassium [Moles/Vol] 3.7 mmol/L Normal 3.5-5.1 [facility] Comment on above: Performed By: #### B MP #### [facility] [address] [place] [address] Dr. Haile Omalley Sodium [Moles/Vol] 138 mmol/L Normal 136-145 [facility] Comment on above: Performed By: #### B MP #### [facility] [address] [place] [address] Dr. Haile Omalley Urea nitrogen [Mass/Vol] 27.0 mg/dL Critically high 7.0-18.0 [facility] Comment on above: Performed By: #### B MP #### [facility] [address] [place] [address] Dr. Haile Omalley Urea nitrogen/Creatinine [Mass ratio] 24.8 mg/mg Normal [facility] Comment on above: Performed By: #### B MP #### [facility] [address] [address] [address] Haile Omalley MRI BRAIN WO CONon 2 MRI BRAIN WO CON EXAMINATION: MRI BRA IN WO CON, 12/27/2021 2:01 PM EDT HISTORY: Paresthesia , [...] FRANKO JACOBS Date: 2021-12-27 18:17 Normal [facility] METHYLMALONIC ACID (MMA)on 0 12-23-2021 Methylmalonic Acid, Serum 282 nmol/L Normal 0-378 [facility] Comment on above: Performed By: #### M MA2 #### [facility] [address] [place] [address] Dr. Haile Omalley PROTEIN ELECTROPHERESISon Albumin [Mass/Vol] 4.0 g/dL Normal 2.9-4.4 [facility] Comment on above: Performed By: #### C BC #### [facility] [address] [place] [address] Dr. Haile Omalley Albumin/Globulin [Mass ratio] 1.5 {ratio} Normal 0.7-1.7 [facility] Comment on above: Performed By: #### C BC #### [facility] [address] [place] [address] Dr. Haile Omalley Cvnjv-1-Gntatahs 0.2 g/dL Normal 0.0-0.4 [facility] Comment on above: Performed By: #### C BC #### [facility] [address] [address] [address] Haile Omalley Arqke-6-Wyvdcqnr 0.8 g/dL Normal 0.4-1.0 [facility] Comment on above: Performed By: #### C BC #### [facility] [address] [place] [address] Dr. Haile Omalley Beta Globulin 1.0 g/dL Normal 0.7-1.3 [facility] Comment on above: Performed By: #### C BC #### [facility] [address] [place] [address] Dr. Haile Omalley Gamma Globulin 0.6 g/dL Normal 0.4-1.8 [facility] Comment on above: Performed By: #### C BC #### [facility] [address] [place] [address] Dr. Haile Omalley Globulin (S) [Mass/Vol] 2.6 g/dL Normal 2.2-3.9 [facility] Comment on above: Performed By: #### C BC #### [facility] [address] [place] [address] Dr. Haile Omalley M-Danie Not Observed Normal Not Observed [facility] Comment on above: Performed By: #### C BC #### [facility] [address] [place] [address] Dr. Haile Omalley PDF . Normal [facility] Comment on above: Performed By: #### C BC #### [facility] [address] [place] [address] Dr. Haile Omalley Please note: Comment Normal [facility] Comment on above: Result Comment: Prot ein electrophoresis scan will follow via computer, mail, or crystal attacher delivery. Performed By: #### C BC #### [facility] [address] [place] [address] Dr. Haile Omalley Protein [Mass/Vol] 6.6 g/dL Normal 6.0-8.5 [facility] Comment on above: Performed By: #### C BC #### [facility] [address] [place] [address] Dr. Haile Omalley GILDA COMPREHENSIVE PROFILEon 12-17-2021 Anti-Centromere B Antibodies <0.2 Normal 0.0-0.9 [facility] Comment on above: Performed By: #### A NAPROF #### [facility] [address] [place] [address] Dr. Haile Omalley Anti-DNA (DS) Ab Qn 1 IU/mL Normal 0-9 [facility] Comment on above: Result Comment: Nega tive <5 Equivocal 5 - 9 Positive >9 Performed By: #### A NAPROF #### [facility] [address] [place] [address] Dr. Haile Omalley Anti-Avani-1 <0.2 Normal 0.0-0.9 [facility] Comment on above: Performed By: #### A NAPROF #### [facility] [address] [place] [address] Dr. Haile Omalley Antichromatin Antibodies <0.2 Normal 0.0-0.9 [facility] Comment on above: Performed By: #### A NAPROF #### [facility] [address] [place] [address] Dr. Haile Omalley ANTIRIBOSOMAL P AB <0.2 Normal 0.0-0.9 [facility] Comment on above: Performed By: #### A NAPROF #### [facility] [address] [place] [address] Dr. Haile Omalley Antiscleroderma-70 Antibodies <0.2 Normal 0.0-0.9 [facility] Comment on above: Performed By: #### A NAPROF #### [facility] [address] [place], [place] [address] Dr. Yilan Omalley COMMENT Comment Normal [facility] [facility] Comment on above: Result Comment: Auto antibody Disease Association Condition Frequency Antinuclear Antibody, SLE, mixed connective Direct (GILDA-D) tissue diseases dsDNA SLE 40 - 60% Chromatin Drug induced SLE 90% SLE 48 - 97% SSA (Ro) SLE 25 - 35% Sjogren's Syndrome 40 - 70% Lupus 100% SSB ([place]) SLE 10% Sjogren's Syndrome 30% Sm (anti-Ramirez) SLE 15 - 30% [employer] Mixed Connective Tissue Disease 95% (U1 nRNP, SLE 30 - 50% anti-ribonucleoprotein) Polymyositis and/or Dermatomyositis 20% Scl-70 (antiDNA Scleroderma (diffuse) 20 - 35% topoisomerase) Crest 13% Avani-1 Polymyositis and/or Dermatomyositis 20 - 40% Centromere B Scleroderma - Crest variant 80% Ribosomal P SLE 10 - 20% Performed By: #### A NAPROF #### [facility] [address] [place] [address] Dr. Haile Omalley [employer] Antibodies <0.2 Normal 0.0-0.9 [facility] Comment on above: Performed By: #### A NAPROF #### [facility] [address] [place] [address] Dr. Haile Omalley Sjogren's Anti-SS-A <0.2 Normal 0.0-0.9 [facility] Comment on above: Performed By: #### A NAPROF #### [facility] [address] [place] [address] Dr. Haile Omalley Sjogren's Anti-SS-B <0.2 Normal 0.0-0.9 [facility] Comment on above: Performed By: #### A DARROF #### [facility] [address] [place] [address] Dr. Haile Omalley Ramirez Antibodies <0.2 Normal 0.0-0.9 [facility] Comment on above: Performed By: #### A NAPROF #### [facility] [address] [place] [address] Dr. Haile Omalley Ramirez/[employer] Antibodies <0.2 Normal 0.0-0.9 [facility] Comment on above: Performed By: #### A MELANIE #### [facility] [address] [place] [address] Dr. Haile Omalley CRPon 12-16-2021 CRP [Mass/Vol] mg/L Normal <=1.0 [facility] Comment on above: Performed By: #### C BC #### [facility] [address] [place] [address] Dr. Haile Omalley GLYCOHEMOGLOBIN A1Con 2021 ADA RECOMMENDATION SEE BELOW Normal [facility] Comment on above: Result Comment: ADA RECOMMENDED LIMIT 4.0 - 6.0 ADA THERAPEUTIC TARGET < 7.0 ACTION SUGGESTED > 7.0 Performed By: #### A 1C #### [facility] [address] [place] [address] Dr. Haile Omalley Glucose [Mass/Vol] 105 mg/dL Normal [facility] Comment on above: Performed By: #### A 1C #### [facility] [address] [place] [address] Dr. Haile Omalley HbA1c (Bld) [Mass fraction] 5.3 % Normal 4.5-6.2 [facility] Comment on above: Performed By: #### A 1C #### [facility] [address] [place] [address] Dr. Haile Omalley PROF 14(COMP METB)on 022 Albumin [Mass/Vol] 4.0 g/dL Normal 3.4-5.0 [facility] Comment on above: Performed By: #### T SH, CRP, CMP #### [facility] [address] [address] [address] Haile Omalley Albumin/Globulin [Mass ratio] 1.3 {ratio} Normal [facility] Comment on above: Performed By: #### T SH, CRP, CMP #### [facility] [address] [address] [address] Haile Omalley ALP [Catalytic activity/Vol] 172 U/L Critically high 46-116 [facility] Comment on above: Performed By: #### T SH, CRP, CMP #### [facility] [address] [address] [address] Haile Omalley ALT [Catalytic activity/Vol] 25 U/L Normal 16-63 [facility] Comment on above: Performed By: #### T SH, CRP, CMP #### [facility] [address] [address] [address] Haile Omalley Anion gap [Moles/Vol] 13.1 mmol/L Normal [facility] Comment on above: Performed By: #### T SH, CRP, CMP #### [facility] [address] [address] [address] Haile Omalley AST [Catalytic activity/Vol] 21 U/L Normal 15-37 [facility] Comment on above: Performed By: #### T SH, CRP, CMP #### [facility] [address] [address] [address] Haile Omalley Bilirubin [Mass/Vol] 0.8 mg/dL Normal 0.2-1.0 [facility] Comment on above: Performed By: #### T SH, CRP, CMP #### [facility] [address] [address] [address] Haile Omalley Calcium [Mass/Vol] 9.5 mg/dL Normal 8.5-10.1 [facility] Comment on above: Performed By: #### T SH, CRP, CMP #### [facility] [address] [address] [address] Haile Omalley Chloride [Moles/Vol] 104 mmol/L Normal 98-107 [facility] Comment on above: Performed By: #### T SH, CRP, CMP #### [facility] [address] [address] [address] Haile Omalley CO2 [Moles/Vol] 31.5 mmol/L Normal 21.0-32.0 [facility] Comment on above: Performed By: #### T SH, CRP, CMP #### [facility] [address] [address] [address] Haile Omalley Creatinine [Mass/Vol] 1.14 mg/dL Normal 0.70-1.30 [facility] Comment on above: Performed By: #### T SH, CRP, CMP #### [facility] [address] [place] [address] Dr. Haile Omalley EGFR-AF SAMOAN >60 Normal >=60 [facility] Comment on above: Performed By: #### T SH, CRP, CMP #### [facility] [address] [place] [address] Dr. Haile Omalley EGFR-NON AF SAMOAN >60 Normal >=60 [facility] Comment on above: Performed By: #### T SH, CRP, CMP #### [facility] [address] [place] [address] Dr. Haile mOalley Globulin (S) [Mass/Vol] 3.1 g/dL Normal [facility] Comment on above: Performed By: #### T SH, CRP, CMP #### [facility] [address] [place] [address] Dr. Haile Omalley Glucose [Mass/Vol] 106 mg/dL Normal 74-106 [facility] Comment on above: Performed By: #### T SH, CRP, CMP #### [facility] [address] [place] [address] Dr. Haile Omalley Potassium [Moles/Vol] 4.6 mmol/L Normal 3.5-5.1 [facility] Comment on above: Performed By: #### T SH, CRP, CMP #### [facility] [address] [place] [address] Dr. Haile Omalley Protein [Mass/Vol] 7.1 g/dL Normal 6.4-8.2 [facility] Comment on above: Performed By: #### T SH, CRP, CMP #### [facility] [address] [place] [address] Dr. Haile Omalley Sodium [Moles/Vol] 144 mmol/L Normal 136-145 [facility] Comment on above: Performed By: #### T SH, CRP, CMP #### [facility] [address] [place] [address] Dr. Haile Omalley Urea nitrogen [Mass/Vol] 30.0 mg/dL Critically high 7.0-18.0 [facility] Comment on above: Performed By: #### T IDALIA CRP, CMP #### [facility] [address] [place] [address] Dr. Haile Omalley Urea nitrogen/Creatinine [Mass ratio] 26.3 mg/mg Normal [facility] Comment on above: Performed By: #### T IDALIA CRP, CMP #### [facility] [address] [place] [address] Dr. Haile Omalley [facility]ATE 4 mm/hr Normal <=20 [facility] Comment on above: Performed By: #### S EDR #### [facility] [address] [place] [address] Dr. Haile Omalley TSHon 12-16-2021 TSH 1.097 uIU/mL Normal 0.358-3.740 [facility] Comment on above: Performed By: #### T SH, CRP, CMP #### [facility] [address] [place] [address] Dr. Haile Omalley TSH RANGE SEE BELOW Normal [facility] Comment on above: Result Comment: <0.3 4 UIU/ml HYPERTHYROID 0.34-5.60 UIU/ml EUTHYROID >5.60 UIU/ml HYPOTHYROID Performed By: #### T SH, CRP, CMP #### [facility] [address] [place] [address] Dr. Haile Omalley VIT B12 AND FOLATEon 022 Cobalamin (Vitamin B12) [Mass/Vol] 470.0 pg/mL Normal 193.0-986.0 [facility] Comment on above: Performed By: #### B 12FOL #### [facility] [address] [place], [place] [address] Dr. Haile Omalley FOLATE 15.50 ng/mL Normal 8.60-58.90 [facility] Comment on above: Performed By: #### B 12FOL #### [facility] [address], [place] [address] Dr. Haile Omalley Vital Signs Date Time Vital Sign Value Performing Clinician Facility 05-09-2024 08:29-0400 Body height 172.7 cm Ulises Kellogg Jr., MD Work Phone: [facility] 05-09-2024 08:29-0400 Body mass index (BMI) [Ratio] 24.33 kg/m2 Ulises Kellogg Jr., MD Work Phone: [facility] 05-09-2024 08:29-0400 Body weight 72.58 kg Ulises Kellogg Jr., MD Work Phone: [facility] 05-09-2024 08:29-0400 Diastolic blood pressure 76 mm[Hg] Ulises Kellogg Jr., MD Work Phone: [facility] 05-09-2024 08:29-0400 Heart rate 66 /min Ulises Kellogg Jr., MD Work Phone: [facility] 05-09-2024 08:29-0400 Systolic blood pressure 118 mm[Hg] Ulises Kellogg Jr., MD Work Phone: [facility] 04-18-2024 14:55-0400 Body height 170.18 cm DO Cameron Ball Work Phone: [facility] 04-18-2024 14:55-0400 Body mass index (BMI) [Ratio] 22.6 kg/m2 DO Cameron Ball Work Phone: [facility] 04-18-2024 14:55-0400 Body weight 65.48 kg DO Cameron Ball Work Phone: [facility] 04-18-2024 14:55-0400 Diastolic blood pressure 54 mm[Hg] DO Cameron Ball Work Phone: [facility] 04-18-2024 14:55-0400 Heart rate 88 /min DO Cameron Ball Work Phone: [facility] 04-18-2024 14:55-0400 Respiratory rate 12 /min DO Cameron Ball Work Phone: [facility] 04-18-2024 14:55-0400 Systolic blood pressure 95 mm[Hg] DO Cameron Ball Work Phone: [facility] 04-14-2024 17:56-0400 Diastolic blood pressure 75 mm[Hg] DO Cameron Ball Work Phone: [facility] 04-14-2024 17:56-0400 Heart rate 65 /min DO Cameron Ball Work Phone: [facility] 04-14-2024 17:56-0400 Respiratory rate 16 /min DO Cameron Ball Work Phone: [facility] 04-14-2024 17:56-0400 SaO2% (BldA) [Mass fraction] 98 % DO Cameron Ball Work Phone: [facility] 04-14-2024 17:56-0400 Systolic blood pressure 132 mm[Hg] DO Cameron Ball Work Phone: [facility] 04-14-2024 15:17-0400 Body temperature 98.5 [degF] DO Cameron Ball Work Phone: [facility] 04-14-2024 13:23-0400 Body height 170.18 cm DO Cameron Ball Work Phone: [facility] 04-14-2024 13:23-0400 Body weight 61.23 kg DO Cameron Ball Work Phone: [facility] 03-28-2024 12:13-0400 Body height 185.42 cm [facility] 03-28-2024 12:13-0400 Body mass index (BMI) [Ratio] 20 kg/m2 [facility] 03-28-2024 12:13-0400 Body weight 69.11 kg [facility] 03-28-2024 12:13-0400 Diastolic blood pressure 65 mm[Hg] [facility] 03-28-2024 12:13-0400 Heart rate 76 /min [facility] 03-28-2024 12:13-0400 Respiratory rate 12 /min [facility] 03-28-2024 12:13-0400 Systolic blood pressure 116 mm[Hg] [facility] 01-11-2024 14:15-0400 Body height 185.42 cm DO Cameron Ball Work Phone: [facility] 01-11-2024 14:15-0400 Body mass index (BMI) [Ratio] 22.1 kg/m2 DO Cameron Ball Work Phone: [facility] 01-11-2024 14:15-0400 Body weight 75.97 kg DO Cameron Ball Work Phone: [facility] 01-11-2024 14:15-0400 Diastolic blood pressure 73 mm[Hg] DO Cameron Ball Work Phone: [facility] 01-11-2024 14:15-0400 Heart rate 66 /min DO Cameron Ball Work Phone: [facility] 01-11-2024 14:15-0400 Respiratory rate 12 /min DO Cameron Ball Work Phone: [facility] 01-11-2024 14:15-0400 Systolic blood pressure 153 mm[Hg] DO Cameron Ball Work Phone: [facility] 12-06-2023 10:28-0400 Body height 185.42 cm DO Cameron Ball Work Phone: [facility] 12-06-2023 10:28-0400 Body mass index (BMI) [Ratio] 21.5 kg/m2 DO Cameron Ball Work Phone: [facility] 12-06-2023 10:28-0400 Body weight 73.99 kg DO Cameron Ball Work Phone: [facility] 12-06-2023 10:28-0400 Diastolic blood pressure 65 mm[Hg] DO Cameron Ball Work Phone: [facility] 12-06-2023 10:28-0400 Heart rate 77 /min DO Cameron Ball Work Phone: [facility] 12-06-2023 10:28-0400 Respiratory rate 12 /min DO Cameron Ball Work Phone: [facility] 12-06-2023 10:28-0400 Systolic blood pressure 126 mm[Hg] DO Cameron Ball Work Phone: [facility] 12-01-2023 12:00-0400 Body temperature 97.6 [degF] DO Cameron Ball Work Phone: [facility] 12-01-2023 12:00-0400 Diastolic blood pressure 78 mm[Hg] DO Cameron Ball Work Phone: [facility] 12-01-2023 12:00-0400 Heart rate 64 /min DO Cameron Ball Work Phone: [facility] 12-01-2023 12:00-0400 Respiratory rate 16 /min DO Cameron Ball Work Phone: [facility] 12-01-2023 12:00-0400 SaO2% (BldA) [Mass fraction] 95 % DO Cameron Ball Work Phone: [facility] 12-01-2023 12:00-0400 Systolic blood pressure 155 mm[Hg] DO Cameron Ball Work Phone: [facility] 12-01-2023 06:00-0400 Body weight 78 kg DO Cameron Ball Work Phone: [facility] 11-29-2023 14:14-0400 Body height 172.72 cm DO Cameron Ball Work Phone: [facility] 11-14-2023 11:22-0400 Diastolic blood pressure 71 mm[Hg] DO Cameron Ball Work Phone: [facility] 11-14-2023 11:22-0400 Heart rate 70 /min DO Cameron Ball Work Phone: [facility] 11-14-2023 [id number] Respiratory rate 16 /min DO Cameron Ball Work Phone: [facility] 11-14-2023 11:22-0400 SaO2% (BldA) [Mass fraction] 95 % DO Cameron Ball Work Phone: [facility] 11-14-2023 [id number] Systolic blood pressure 115 mm[Hg] DO Cameron Ball Work Phone: [facility] 11-14-2023 09:55-0400 Body height 172.72 cm DO Cameron Ball Work Phone: [facility] 11-14-2023 09:55-0400 Body mass index (BMI) [Ratio] 25.6 kg/m2 DO Cameron Ball Work Phone: [facility] 11-14-2023 09:55-0400 Body weight 76.5 kg DO Cameron Ball Work Phone: [facility] 11-14-2023 09:11-0400 Body temperature 98.1 [degF] DO Cameron Ball Work Phone: [facility] 10-24-2023 11:28-0400 Body height 172.72 cm DO Cameron Ball Work Phone: [facility] 10-24-2023 11:28-0400 Body mass index (BMI) [Ratio] 24.9 kg/m2 DO Cameron Ball Work Phone: [facility] 10-24-2023 11:28-0400 Body weight 74.38 kg DO Cameron Ball Work Phone: [facility] 10-24-2023 11:28-0400 Diastolic blood pressure 80 mm[Hg] DO Cameron Ball Work Phone: [facility] 10-24-2023 11:28-0400 Heart rate 73 /min DO Cameron Ball Work Phone: [facility] 10-24-2023 11:28-0400 Respiratory rate 18 /min DO Cameron Ball Work Phone: [facility] 10-24-2023 11:28-0400 SaO2% (BldA) [Mass fraction] 96 % DO Cameron Ball Work Phone: [facility] 10-24-2023 11:28-0400 Systolic blood pressure 148 mm[Hg] DO Cameron Ball Work Phone: [facility] 10-18-2023 11:08-0400 Body height 172.72 cm DO Cameron Ball Work Phone: [facility] 10-18-2023 11:08-0400 Body mass index (BMI) [Ratio] 26.1 kg/m2 DO Cameron Ball Work Phone: [facility] 10-18-2023 11:08-0400 Body weight 78.01 kg DO Cameron Ball Work Phone: [facility] 10-10-2023 11:07-0400 Body height 172.72 cm DO Cameron Ball Work Phone: [facility] 10-10-2023 11:07-0400 Body mass index (BMI) [Ratio] 26.1 kg/m2 DO Cameron Ball Work Phone: [facility] 10-10-2023 11:07-0400 Body weight 78.01 kg DO Cameron Ball Work Phone: [facility] 09-26-2023 10:58-0500 Body height 172.72 cm DO Cameron Ball Work Phone: [facility] 09-26-2023 10:58-0500 Body mass index (BMI) [Ratio] 25.6 kg/m2 DO Cameron Ball Work Phone: [facility] 09-26-2023 10:58-0500 Body weight 76.37 kg DO Cameron Ball Work Phone: [facility] 09-26-2023 10:58-0500 Diastolic blood pressure 82 mm[Hg] DO Cameron Ball Work Phone: [facility] 09-26-2023 10:58-0500 Heart rate 72 /min DO Cameron Ball Work Phone: [facility] 09-26-2023 10:58-0500 Systolic blood pressure 140 mm[Hg] DO Cameron Ball Work Phone: [facility] 07-11-2023 13:30-0500 Body height 172.72 cm Cameron Ball Other [facility] [email or web address] Other 07-11-2023 13:30-0500 Body mass index (BMI) [Ratio] 25.91 kg/m2 Cameron Ball Other [employer] Other 07-11-2023 13:30-0500 Body weight 77.29 kg Cameron Ball Other [employer] Other 07-11-2023 13:30-0500 Diastolic blood pressure 83 mm[Hg] Cameron Ball Other [employer] Other 07-11-2023 13:30-0500 Respiratory rate 12 /min Cameron Ball Other [employer] Other 07-11-2023 13:30-0500 Systolic blood pressure 141 mm[Hg] Cameron Ball Other [employer] Other 03-07-2023 13:30-0400 Body height 172.72 cm Cameron Ball Other [employer] Other 03-07-2023 13:30-0400 Body mass index (BMI) [Ratio] 25.39 kg/m2 Cameron Ball Other [employer] Other 03-07-2023 13:30-0400 Body weight 75.75 kg Cameron Ball Other [employer] Other 03-07-2023 13:30-0400 Diastolic blood pressure 66 mm[Hg] Cameron Ball Other [employer] Other 03-07-2023 13:30-0400 Systolic blood pressure 149 mm[Hg] Cameron Ball Other [employer] Other 02-26-2023 10:24-0400 Diastolic blood pressure 67 mm[Hg] DO Cameron Ball Work Phone: [facility] 02-26-2023 10:24-0400 Heart rate 75 /min DO Cameron Ball Work Phone: [facility] 02-26-2023 10:24-0400 Respiratory rate 18 /min DO Cameron Ball Work Phone: [facility] 02-26-2023 10:24-0400 SaO2% (BldA) [Mass fraction] 98 % DO Cameron Ball Work Phone: [facility] 02-26-2023 10:24-0400 Systolic blood pressure 124 mm[Hg] DO Cameron Ball Work Phone: [facility] 02-26-2023 08:17-0400 Body height 172.72 cm DO Cameron Ball Work Phone: [facility] 02-26-2023 08:17-0400 Body weight 72.57 kg DO Cameron Ball Work Phone: [facility] 02-13-2023 09:30-0400 Body height 172.72 cm Cameron Ball Other [facility] [email or web address] Other 02-13-2023 09:30-0400 Body mass index (BMI) [Ratio] 24.78 kg/m2 Cameron Ball Other [employer] Other 02-13-2023 09:30-0400 Body weight 73.94 kg Cameron Ball Other [employer] Other 02-13-2023 09:30-0400 Diastolic blood pressure 63 mm[Hg] Cameron Ball Other [employer] Other 02-13-2023 09:30-0400 Respiratory rate 12 /min Cameron Ball Other [employer] Other 02-13-2023 09:30-0400 Systolic blood pressure 111 mm[Hg] Cameron Ball Other [employer] Other 01-02-2023 14:00-0400 Body height 172.72 cm Cameron Ball Other [employer] Other 01-02-2023 14:00-0400 Body mass index (BMI) [Ratio] 25.48 kg/m2 Cameron Ball Other [employer] Other 01-02-2023 14:00-0400 Body weight 76.02 kg Cameron Ball Other [employer] Other 01-02-2023 14:00-0400 Diastolic blood pressure 63 mm[Hg] Cameron Ball Other [employer] Other 01-02-2023 14:00-0400 Respiratory rate 12 /min Cameron Ball Other [employer] Other 01-02-2023 14:00-0400 Systolic blood pressure 118 mm[Hg] Cameron Ball Other [employer] Other 11-01-2022 15:45-0400 Body height 172.72 cm Cameron Ball Other [employer] Other 11-01-2022 15:45-0400 Body mass index (BMI) [Ratio] 25.91 kg/m2 Cameron Ball Other [employer] Other 11-01-2022 15:45-0400 Body weight 77.29 kg Cameron Ball Other [employer] Other 11-01-2022 15:45-0400 Diastolic blood pressure 74 mm[Hg] Cameron Ball Other [employer] Other 11-01-2022 15:45-0400 Respiratory rate 16 /min Cameron Ball Other [employer] Other 11-01-2022 15:45-0400 Systolic blood pressure 118 mm[Hg] Cameron Ball Other [employer] Other 08-29-2021 15:00-0500 Body height 172.72 cm Hiren Da Silva Other [employer] Other 08-29-2021 15:00-0500 Body mass index (BMI) [Ratio] 28.28 kg/m2 Hiren Da Silva Other [employer] Other 08-29-2021 15:00-0500 Body weight 84.37 kg Hiren Da Silva Other [employer] Other 08-03-2021 09:30-0500 Body height 172.72 cm Hiren Da Silva Other [employer] Other 08-03-2021 09:30-0500 Body mass index (BMI) [Ratio] 28.28 kg/m2 Hiren DaS ilva Other [employer] Other 08-03-2021 09:30-0500 Body weight 84.37 kg Hiren Da Silva Other [facility] [email or web address] Other Encounters Encounter Date Encounter Type Care Provider Facility Start: 05-13-2024 End: 05-13-2024 ambulatory ALEXANDER DAMON Not Available Start: 05-09-2024 End: 05-09-2024 Office outpatient visit 25 minutes Ulises Kellogg MD Work Phone: [facility] Comment on above: Urologic disorders ( Primary Dx); Benign prostatic hyperplasia with urinary hesitancy; Elevated PSA Start: 05-09-2024 End: 05-09-2024 ambulatory ULISES KELLOGG [facility] Start: 05-06-2024 End: 05-06-2024 Telephone encounter Ulises Kellogg MD Work Phone: [facility] Start: 05-06-2024 End: 05-06-2024 ambulatory ULISES KELLOGG [facility] Start: 04-24-2024 ambulatory DO Cameron jimenez Work Phone: [facility] Work Phone: Start: 04-24-2024 Non-patient / Non-visit DO Nestor Gaming Work Phone: [facility] Work Phone: Start: 04-19-2024 ambulatory CAMERON GAMING [facility] Start: 04-18-2024 End: 04-18-2024 ambulatory DO Cameron Gaming Work Phone: [facility] Work Phone: Start: 04-18-2024 End: 04-18-2024 Patient encounter procedure DO Cameron Gaming Work Phone: [facility] Work Phone: Start: 04-14-2024 End: 04-14-2024 Emergency department patient visit DO Cameron Gaming Work Phone: [facility] Work Phone: Start: 04-13-2024 Non-patient / Non-visit DO Nestor carey Ball Work Phone: [facility] Work Phone: Start: 03-28-2024 End: 03-28-2024 ambulatory [facility] Work Phone: Start: 03-28-2024 End: 03-28-2024 Patient encounter procedure [facility] Work Phone: Start: 01-11-2024 End: 01-11-2024 ambulatory DO Cameron Ball Work Phone: [facility] Work Phone: Start: 01-11-2024 End: 01-11-2024 Patient encounter procedure DO Cameron Ball Work Phone: [facility] Work Phone: Start: 01-11-2024 ambulatory Damon oFx PATEL Facility :[place] Start: 01-02-2024 Non-patient / Non-visit DO Nestor carey Ball Work Phone: [facility] Work Phone: Start: 12-06-2023 End: 12-06-2023 ambulatory DO Cameron Ball Work Phone: [facility] Work Phone: Start: 12-06-2023 End: 12-06-2023 Patient encounter procedure DO Cameron Ball Work Phone: [facility] Work Phone: Start: 12-04-2023 Non-patient / Non-visit DO Nestor carey Ball Work Phone: [facility] Work Phone: Start: 11-30-2023 End: 11-30-2023 ambulatory Syed Buchanan Facility:[id number] Start: 11-29-2023 End: 12-01-2023 Non-patient / Non-visit DO Cameron Ball Work Phone: [facility] Gastroenterology Work Phone: Start: 11-28-2023 End: 12-01-2023 Evaluation and management of inpatient DO Cameron Ball Work Phone: [facility] [facility] Work Phone: Start: 11-28-2023 Non-patient / Non-visit DO Nestor cherry Ball Work Phone: [facility] Work Phone: Start: 11-14-2023 End: 11-14-2023 Admission to same day surgery center DO Cameron Ball Work Phone: [facility] [place] Start: 11-14-2023 End: 11-14-2023 ambulatory DO Cameron Ball Work Phone: [facility] Work Phone: Start: 11-14-2023 Non-patient / Non-visit DO Nestor cherry Ball Work Phone: [facility] Neurosurgery Work Phone: Start: 11-07-2023 End: 11-07-2023 Patient encounter procedure DO Cameron Ball Work Phone: [facility]-Pre-Surgical Testing Work Phone: Start: 11-07-2023 End: 11-07-2023 ambulatory DO Cameron Ball Work Phone: [facility] Work Phone: Start: 11-07-2023 Encounter for preprocedural laboratory examination John Adam [facility] Start: 10-24-2023 Patient encounter status DO Cameron Ball Work Phone: [facility] Start: 10-24-2023 End: 10-24-2023 ambulatory DO Cameron Ball Work Phone: [facility] Work Phone: Start: 10-24-2023 End: 10-24-2023 Encounter for preprocedural cardiovascular examination DO Cameron Ball Work Phone: [facility] Start: 10-24-2023 End: 10-24-2023 Patient encounter procedure DO Cameron Ball Work Phone: [facility] Cardiology Work Phone: Start: 10-18-2023 End: 10-18-2023 ambulatory DO Cameron Ball Work Phone: [facility] Work Phone: Start: 10-18-2023 End: 10-18-2023 Patient encounter procedure DO Cameron Ball Work Phone: [facility] Neurosurgery Work Phone: Start: 10-11-2023 End: 10-11-2023 Patient encounter procedure DO Cameron Ball Work Phone: [facility] [place] Work Phone: Start: 10-11-2023 End: 10-11-2023 ambulatory DO Cameron Ball Work Phone: [facility] Work Phone: Start: 10-10-2023 End: 10-10-2023 Patient encounter procedure DO Cameron Ball Work Phone: [facility] Neurosurgery Work Phone: Start: 09-26-2023 End: 09-26-2023 Patient encounter procedure DO Cameron Ball Work Phone: [facility] Work Phone: Start: 07-11-2023 End: 07-11-2023 ambulatory Cameron Ball Other [employer] Other Start: 07-11-2023 Patient encounter procedure Cameron Ball [facility] Start: 07-01-2023 End: 07-01-2023 ambulatory Cameron Ball Other [employer] Other Start: 07-01-2023 Telephone encounter Cameron PAGE G [facility] Start: 03-30-2023 End: 03-30-2023 ambulatory Asim Mathur Other [employer] Other Start: 03-30-2023 Telephone encounter Asim Mathur CAMIL[employer] Start: 03-07-2023 End: 03-07-2023 ambulatory Cameron Gaming Other [employer] Other Start: 03-07-2023 Office outpatient vi sit 25 minutes Cameron Ball [facility] Start: 03-05-2023 End: 03-05-2023 ambulatory Cameron Gaming Other [employer] Other Start: 03-05-2023 Telephone encounter Cameron PAGE G [facility] Start: 02-26-2023 Telephone encounter Cameron PAGE G [facility] Start: 02-26-2023 End: 02-26-2023 Admission to same day surgery center DO Cameron Gaming Work Phone: [facility] Work Phone: Start: 02-26-2023 End: 02-26-2023 ambulatory DO Cameron Gaming Work Phone: [facility] Work Phone: Start: 02-13-2023 End: 02-13-2023 ambulatory Cameron Gaming Other [employer] Other Start: 02-13-2023 Office outpatient vi sit 15 minutes Cameron Ball [facility] Start: 01-10-2023 End: 01-10-2023 ambulatory Imad Asaad Other [employer] Other Start: 01-10-2023 Telephone encounter Imad Asaad [facility] Start: 01-02-2023 End: 01-02-2023 ambulatory Cameron Gaming Other [employer] Other Start: 01-02-2023 Office outpatient vi sit 25 minutes Cameron Gaming [facility] Start: 11-01-2022 End: 11-01-2022 ambulatory Cameron Gaming Other [employer] Other Start: 11-01-2022 Office outpatient vi sit 25 minutes Cameron Gaming [facility] Start: 10-25-2022 End: 10-26-[address] CAMERON GAMING Facility:[facility] Start: 10-20-2022 End: 10-20-2022 ambulatory Cameron Gaming Other [employer] Other Start: 10-20-2022 Telephone encounter Cameron Gaming [facility] Start: 10-18-2022 End: 10-18-2022 ambulatory Cameron Gaming Other [employer] Other Start: 10-18-2022 Telephone encounter Cameron Gaming [facility] Start: 07-20-2022 End: 07-20-[address] CAMERON GAMING Facility:[facility] Start: 07-18-2022 End: 07-19-[address] CAMERON GAMING Facility:[facility] Start: 07-04-2022 Adult health examination Imad Asaad Other [employer] Other Start: 07-04-2022 Encounter for genera l adult medical examination without abnormal findings Cameron Gaming Other [employer] Other Start: 12-27-2021 End: 12-28-[address] CAMERON GAMING Facility:[facility] Start: 12-16-2021 End: 12-17-[address] DOCTOR GLASS Facility:[facility] Start: 08-29-2021 End: 08-29-2021 ambulatory Hiren Da Silva Other [employer] Other Start: 08-29-2021 Office outpatient vi sit 15 minutes Hiren Da Silva [facility] Neuro[facility] Start: 08-03-2021 End: 08-03-2021 ambulatory Hiren Da Silva Other [facility] [email or web address] Other Start: 08-03-2021 Office outpatient vi sit 15 minutes Hiren Da Silva [facility] Neuro[facility] Procedures Date Procedure Procedure Detail Performing Clinician Start: 05-09-2024 Follow-up visit Follow-up ULISES KELLOGG JR Start: 04-14-2024 CT of abdomen and pelvis without contrast DO Cameron Ball Work Phone: Start: 04-14-2024 Urine culture DO Cameron Ball Work Phone: Start: 11-30-2023 Urine culture DO Cameron Ball Work Phone: Start: 11-29-2023 Antibody screen Nhan Ramirez Comment on above: Order Comment: Transfuse now? N Result Comment: PERF ORMED BY: [address] [place] [address] PATHOLOGIST SYSTEM SAFETY MANAGER JAMISON ANDINO M.D. Start: 11-14-2023 Decompression of median nerve DO Benjami n Ball Work Phone: Start: 10-11-2023 X-ray of lumbar spine, six views including bending views DO Cameron Ball Work Phone: Start: 10-11-2023 X-ray of cervical spine DO Cameron Ball Work Phone: Start: 02-26-2023 Esophagogastroduodenoscopy DO Cameron B all Work Phone: Start: 05-01-2016 Screening for malignant neoplasm of colon Imad Asaad Other Depression screening Imad As aad Other Plan of Treatment Date Care Activity Detail Author Start: 01-14-2032 DTaP,Tdap and Td Vac cines (2 - Td or Tdap) DTaP,Tdap and Td Vaccines (2 - Td or Tdap) [facility] Start: 05-09-2025 Adult BMI Screening Adult BMI Screen ing [facility] Start: 05-09-2025 Tobacco Screening Tobacco Screening [facility] Start: 04-24-2025 Adult BMI Screening Adult BMI Screen ing [facility] Start: 04-24-2025 Tobacco Screening Tobacco Screening [facility] Start: 06-20-2024 End: 06-20-2024 Patient encounter procedure 06/20/2024 8:45 AM EST Office Visit [facility] [address] [place] [address] [phone] Ulises Kellogg Jr., MD [address] [place] [id number] [facility] Start: 05-30-2024 End: 05-09-2025 Prostatic specific antigen, diagnostic Prostatic specific antigen, diagnostic Lab Routine Benign prostatic hyperplasia with urinary hesitancy Elevated PSA Expected: 05/30/2024 (Approximate), Expires: 05/09/2025 [facility] Work Phone: Comment on above: Expected: 05/30/2024 (Approximate), Expires: 05/09/2025 Start: 05-09-2024 End: 05-09-2024 Patient encounter procedure 05/09/2024 8:30 AM EDT Office Visit [facility] [address] [place] [phone] Ulises Kellogg Jr., MD [address] [place] [id number] [facility] Start: 04-24-2024 Patient referral [facility] Work Phone: Start: 04-14-2024 Bacteria identified in Urine by Culture [facility] Start: 03-30-2024 COVID-19 Vaccine ( season) COVID-19 Vaccine ( season) [facility] Start: 03-30-2024 Influenza vaccination Influenza Vacc ine [facility] Start: 12-01-2023 [facility] Start: 11-30-2023 Bacteria identified in Urine by Culture Urine Culture [facility] Start: 11-30-2023 Referral to urologist [facility] Start: 11-28-2023 End: 11-28-2023 [facility] Start: 11-28-2023 Referral to community affairs director [facility] Start: 11-28-2023 Hospital admission [facility] Start: 11-14-2023 End: 11-14-2023 [facility] Start: 10-24-2023 EKG 12 channel panel [facility] Start: 10-19-2023 Patient referral [facility] Work Phone: Start: 02-26-2023 [facility] Start: 05-10-2016 Administration of va ricella zoster vaccine Zoster (Shingles) Vaccine (2 of 3) [employer] Start: 2004 Fall Risk Screening Fall Risk Screen ing [employer] [facility] Start: 1951 Depression Screening Depression Scre ening [facility] [employer] ([employer]) Start: 1940 Medicare Annual Well ness Visit Medicare Annual Wellness Visit [facility] Start: 1940 Tobacco Counseling Tobacco Counselin g [facility] MR Cervical spine WO contrast [facility] MR Lumbar spine WO contrast [facility] Patient Education [facility] Work Phone: Patient referral [facility] Work Phone: [facility] Immunizations Immunization Date Immunization Notes Care Provider Fantasma yen 07-11-2023 Prevnar 20 [employer] Other [facility] 04-06-2023 influenza virus vaccine, unspecified formulation DO [employer] Work Phone: [facility] 04-06-2023 influenza, high dose seasonal, preservative-free [employer] Other [employer] Other 05-10-2022 influenza virus vaccine, split virus (incl. purified surface antigen) [employer] Other [employer] Other 05-10-2022 influenza virus vaccine, unspecified formulation DO [employer] Work Phone: [facility] 01-13-2022 tetanus toxoid, reduced diphtheria toxoid, and acellular pertussis vaccine, adsorbed DO [employer] Work Phone: [facility] 05-25-2021 COVID-19 mRNA-1273 (Moderna) DO [employer] Work Phone: [facility] 04-12-2021 influenza virus vaccine, split virus (incl. purified surface antigen) [employer] Other [facility] [email or web address] Other 04-12-2021 influenza virus vaccine, unspecified formulation DO [employer] Work Phone: [facility] 09-22-2020 COVID-19 Vaccine Moderna - Documentation Purposes Only [employer] Other [facility] 08-25-2020 COVID-19 Vaccine Moderna - Documentation Purposes Only [employer] Other [facility] 06-23-2020 influenza virus vaccine, split virus (incl. purified surface antigen) [employer] Other [facility] [email or web address] Other 06-23-2020 influenza virus vaccine, unspecified formulation DO [employer] Work Phone: [facility] 06-23-2020 Seasonal trivalent influenza vaccine, adjuvanted, preservative free DO [employer] Work Phone: [facility] 05-14-2019 influenza virus vaccine, split virus (incl. purified surface antigen) [employer] Other [facility] [email or web address] Other 05-14-2019 influenza virus vaccine, unspecified formulation DO [employer] Work Phone: [facility] 04-29-2019 influenza, high dose seasonal, preservative-free DO [employer] Work Phone: [facility] 05-15-2018 influenza virus vaccine, split virus (incl. purified surface antigen) [employer] Other [facility] [email or web address] Other 05-15-2018 influenza virus vaccine, unspecified formulation DO [employer] Work Phone: [facility] 05-15-2018 Seasonal trivalent influenza vaccine, adjuvanted, preservative free DO [employer] Work Phone: [facility] 04-05-2017 influenza virus vaccine, split virus (incl. purified surface antigen) [employer] Other [facility] [email or web address] Other 04-05-2017 influenza virus vaccine, unspecified formulation DO [employer] Work Phone: [facility] 04-05-2017 influenza, high dose seasonal, preservative-free DO [employer] Work Phone: [facility] 05-01-2016 pneumococcal conjugate vaccine, 13 valent [employer] Other [facility] 04-27-2016 influenza virus vaccine, split virus (incl. purified surface antigen) [employer] Other [facility] [email or web address] Other 04-27-2016 influenza virus vaccine, unspecified formulation DO [employer] Work Phone: [facility] 04-27-2016 influenza, high dose seasonal, preservative-free DO [employer] Work Phone: [facility] 03-15-2016 zoster vaccine, unspecified formulation Ulises Kellogg Jr., MD Work Phone: [facility] [employer] [facility] NEGATED: Highlighted row has not occurred!04-09-2019 influenza, high dose seasonal, preservative-free Patient Objection Hiren Da Silva Other [facility] [email or web address] Other NEGATED: Highlighted row has not occurred!04-09-2019 influenza virus vaccine, unspecified formulation DO [employer] Work Phone: [facility] Payers Date Payer Category Payer Medicare [id number] 2023 Self-pay [id number] 2023 Unknown [id number] 2021 Medicare AETNA MEDICARE A ETNA MEDICARE PLAN (PPO) [id number] 2021-Present [phone] [address] [place] [address] [id number] 2018 Medicare [id number] 2018 Medicare [id number] 1960 Medicare [id number] 1939 Unknown [id number] 2.16.840.1.297849.3.579.2.593 1939 Unknown [id number] 2.16.840.1.925162.3.579.2.593 1939 Unknown [id number] 2.16.840.1.940648.3.579.2.593 1939 Unknown [id number] 2.16.840.1.829584.3.579.2.593 1939 Unknown [id number] 2.16.840.1.296480.3.579.2.593 1939 Unknown [id number] 2.16.840.1.139182.3.579.2.727 1939 Unknown [id number] 2.16.840.1.632265.3.579.2.727 1939 Unknown [id number] 2.16.840.1.779845.3.579.2.1286 1939 Unknown [id number] 2.16.840.1.047709.3.579.2.1286 1939 Unknown [id number] 2.16.840.1.104488.3.579.2.1286 1939 Unknown [id number] 2.16.840.1.346360.3.579.2.1286 1939 Unknown [id number] 2.16.840.1.705835.3.579.2.1259 Unknown HCAP/HFA/FAP Active [id number] Unknown [id number] 2.16.840.1.111247.3.579.2.531 Unknown [id number] 2.16.840.1.667227.3.579.2.531 Unknown [id number] 2.16.840.1.885867.3.579.2.531 Unknown [id number] 2.16.840.1.737244.3.579.2.531 Unknown [id number] 2.16.840.1.504515.3.579.2.531 Unknown [id number] 2.16.840.1.116897.3.579.2.531 Social History Date Type Detail Facility Unknown if ever smoked [employer] Other Start: 09-09-2020 End: 04-24-2024 Sex Assigned At [facility] [employer] Other Start: 02-26-2023 Tobacco smoking stat us SCIS Ex-smoker (finding) [facility] Start: 1940 Sex Assigned At Male [facility] Start: 10-24-2023 End: 04-14-2024 Tobacco smoking status NHIS Smoker (finding) [facility] Start: 08-25-2022 Tobacco smoking stat [facility] Smokes tobacco daily [facility] History of tobacco use Cigar Smoker [facility] Start: 08-25-2022 Tobacco use and exposure Smokeless tobacco non-user [facility] [employer] [facility] Start: 04-24-2024 End: 05-09-2024 Alcoholic beverage intake Current drinker of alcohol (finding) [facility] [employer] System Start: 09-09-2020 End: 04-24-2024 Alcoholic beverage intake [facility] Childcare Unknown [facility] Start: 03-01-2019 Alcohol Comment daily [facility] [employer] System Start: 1940 Sex assigned at Not on file [employer] Medical Equipment Procedure Code Equipment Code Equipment Origin al Text Equipment Identifier Dates Capsule endoscopy, for patency of lumen evaluation Video capsule endoscopy system ()[id number] FDA Start: 04-11-2023 Spinal fixation plate, non-bioabsorbable ()[id number] FDA Start: 04-27-2020 Intervertebral-b od y internal spinal fixation system ()[id number] FDA Start: 04-27-2020 Intervertebral-b od y internal spinal fixation system ()[id number] FDA Start: 04-27-2020 Intervertebral-b od y internal spinal fixation system ()[id number] FDA Start: 04-27-2020 Bone-screw internal spinal fixation system, non-sterile ()[id number] FDA Start: 04-27-2020 Bone-screw internal spinal fixation system, non-sterile ()[id number] FDA Start: 04-27-2020 Goals Date Patient Goal Desired Activity /State Functional Status Date Assessment Result Facility 12-01-2023 Functional status Patient at [facility] Work Phone: Mental Status Date Assessment Result Facility 12-01-2023 Cognitive function Cognitive Sta tus Patient at [facility] Work Phone: Clinical Notes 08-03-2021 to 05-09-2024 Ulises Kellogg Jr., MD - 05/09/2024 8:30 AM EDTTelephone Encounter - Ulises Kellogg Jr., MD - 05/06/2024 5:31 PM EDTTelephone Encounter - Ulises Kellogg Jr., MD - 05/06/2024 5:31 PM EDT Note Date & Type Note Facility 05-09-2024 History of Presen t illness Narrative Images from the original note were not included. [address] [place] [address] [address] [facility] [phone] Patient: Jesús Babcock Date of : 1940 Encounter Date: 05/09/2024 History of Present Illness: Chief Complaint: Follow up benign prostatic hyperplasia with retention and elevated PSA. See below Urinalysis today: No results for input(s): EXTPOCURCO , EXTPOCURCH , EXTPOCAPP , EXTPOCURBS , EXTPOCURBIL , EXTPOCUKET , EXTPOCUSPG , EXTPOCUHGB , EXTPOCUPRO , EXTPOCUURO , EXTPOCULEU , EXTPOCUNIT , EXTPOCUWBC , EXTPOCUBLD , EXTPOCURBC , EXTPOCUCRY , EXTPOCUBAC , EXTPOCUTREP , EXTPOCUPH , EXTPOCULEE in the last 72 hours. Last BUN and creatinine: No results found for: BUN No results found for: CREATININE Last PSA: Lab Results Component Value Date PSA 10.58 (H) 10/04/2022 PSA 13.26 (H) 09/07/2022 No results found for: PROSTATICSP Past Medical, Family, and Social History Update: The following portions of the patient's history were reviewed and updated as appropriate: allergies, current medications, past family history, past medical history, past social history, past surgical history and problem list. 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 EAR RECONSTRUCTION LEG SURGERY PROSTATE BIOPSY 2018 TONSILLECTOMY History reviewed. No pertinent family history. Current Outpatient Medications Medication Sig Dispense Refill aspirin 81 mg Take 1 tablet (81 mg total) by mouth in the morning. baclofen (LIORESAL) 10 mg tablet Take 1 tablet (10 mg total) by mouth in the morning. celecoxib (CeleBREX) 200 mg capsule Take 1 capsule (200 mg total) by mouth in the morning and 1 capsule (200 mg total) before bedtime. cyanocobalamin 1000 MCG tablet Take 1 tablet (1,000 mcg total) by mouth in the morning. dutasteride (AVODART) 0.5 mg capsule Take 1 capsule (0.5 mg total) by mouth in the morning. 90 capsule 3 gabapentin (NEURONTIN) 100 mg capsule metoprolol succinate XL (TOPROL XL) 50 mg 24 hr tablet Take 1 tablet (50 mg total) by mouth in the morning. ixwipwdu-incz-IE-calcium &mins (THERAGRAN-M) 9 mg iron-400 mcg tablet Take 1 tablet by mouth in the morning. omeprazole (PriLOSEC) 40 mg capsule Every morning lisinopril-hydroCHLOROthiazide (PRINZIDE,ZESTORETIC) 10-12.5 mg per tablet (Patient not taking: Reported on 04/24/2024) No current facility-administered medications for this visit. (All medications reviewed and updated by provider since last office visit or hospitalization) Allergies: Ciprofloxacin Tobacco History: Social History Tobacco Use Smoking Status Every Day Types: Cigars Smokeless Tobacco Never (If patient a smoker, smoking cessation counseling offered) Social History: Social History Substance and Sexual Activity Alcohol Use Yes Alcohol/week: 1.0 standard drink of alcohol Types: 1 Shots of liquor per week Comment: daily Review of Systems: General: Negative for chills and fever. Cardiovascular: Negative for chest pain and shortness of breath. Gastrointestinal: Negative for constipation, diarrhea, nausea, and vomitting. -per HPI Physical Exam: BP 118/76 Pulse 66 Ht 172.7 cm (5' 8 ) Wt 72.6 kg (160 lb) BMI 24.33 kg/m Alert, pleasant, without signs of acute illness, and in no distress. Respirations unlabored . Skin dry on examination now. Assessment and Plan: Jesús was seen today for follow-up. Diagnoses and all orders for this visit: Urologic disorders Benign prostatic hyperplasia with urinary hesitancy - Prostatic specific antigen, diagnostic; Future Elevated PSA - Prostatic specific antigen, diagnostic; Future Problem List Unprioritized Urologic disorders - Primary Overview 1. Concern for bleeding tendency without formal evaluation with benign prostatic hyperplasia with difficulty voiding, hesitancy, postvoid dribble, and occasional urge incontinence all progressive since onset of severe polyneuropathy 2021 with marginal help with Flomax 0.4 mg primary care; Urinary retention 500 mL catheterization [facility] 04/13/2024 with subsequent hematuria gross; Vira 2. elevated PSA negative ultrasound prostate biopsy Dr. Christoph Miranda 08/08/2016 with focal acute/chronic inflammation for PSA there peak 7.68 on 05/03/2016; peak PSA 13.26 on 09/07/2022; PI-RADS level 2 lesion MRI 10/29/2022, volume 92 mL, density 0.14; ultrasound prostate biopsy declined 12/22/2022. 3. Patient requested prostate cancer screening 08/25/2022. 4. Elevated postvoid residual 319 mL without hydronephrosis with significant benign prostatic hyperplasia with intravesical extension ultrasound 09/07/2022 5. Initial gross hematuria immediately following performance of retroperitoneal ultrasound 09/07/2022-resolved 6. Flow 10/04/2022 low voided volume, peak and mean 4.4 in 2.1, PVR 325 mL without hydronephrosis 7. Large epigastric hernia with benign prostatic hyperplasia with 100 g resectable tissue obstruction with large intravesical median lobe cystoscopy 10/20/2022 8. Left lower pole simple renal cyst report [facility] CT 04/14/2024 9. Absent from requested 3 months follow-up from 12/22/2022 until 04/24/2024 10. Urodynamics unobtainable 05/06/2024 secondary to inability to catheterize patient with that catheter Elevated PSA Relevant Orders Prostatic specific antigen, diagnostic Benign prostatic hyperplasia with urinary hesitancy Relevant Orders Prostatic specific antigen, diagnostic Follow-up: Patient returns, again with his , much calmer today but with continued retention with his catheter draining well with elimination of the gross hematuria. I REVIEWED THE FOLLOWING: Multiple electronic records regarding urodynamic studies, which could not be completed 05/06/[address] the urodynamics catheter by staff. They were able to place a Chaidez catheter which is draining appropriately. We discussed the urodynamics could theoretically give insight as to whether not trans urethral ablation of his obstructing prostate would successfully relieve his urinary retention, but his 's spoke up and commented that he is actually just incontinence continuously all day long, and that is actually resolved with his indwelling Chaidez. I did discuss option of intermittent self catheterization, although I commented if he really has continued urinary incontinence, likely that would not be successful therapy. We did discuss the possibility of endoscopic treatment of his prostate to try to fix the retention, but again, we also reviewed given his incontinence situation, such a procedure could actually make the incontinence worse. I think he is leaning toward management with chronic indwelling Chaidez which could be per urethra we discussed changed monthly. We did not discussed today possibility of suprapubic tube. Return 1 month with repeat catheter change and PSA to follow up as elevated PSA. Urology service is the sole provider for the patient's ongoing management of benign prostatic hyperplasia with urinary retention, which is a chronic condition requiring ongoing follow-up. Today I did discontinued his Flomax, as he certainly does not needed anymore. Continue dutasteride 0.5 mg daily to prevent prostatic bleeding. ULISES KELLOGG JR, MD This note was created with the assistance of a speech recognition program. While intending to generate a timely document that accurately reflects the content of the visit, no guarantee can be provided that every grammatical or spelling mistake has been or will be identified or corrected. Thank you for your understanding. documented in this encounter [facility] 05-06-2024 Miscellaneous Notes Formattin g of this note is different from the original. Images from the original note were not included. Excellent! Thanks Patient Calls (Newest Message First) View All Conversations on this Encounter BRENT Gee routed conversation to You48 minutes ago (4:43 PM) TSERING Gee8 minutes ago (4:43 PM) MH I spoke with pt and he said they placed a new chaidez. He said his urine is on the darker side. I told him to push the water and that should help. Pt said he has an appointment with you on Sunday. Note documented in this encounter [facility] 05-06-2024 Telephone encount er Note Images from the original note were not included. Excellent! Thanks Patient Calls (Newest Message First) View All Conversations on this Encounter BRENT Gee routed conversation to You48 minutes ago (4:43 PM) JOSE GeeA48 minutes ago (4:43 PM) MH I spoke with pt and he said they placed a new chaidez. He said his urine is on the darker side. I told him to push the water and that should help. Pt said he has an appointment with you on Sunday. Note [facility] 05-06-2024 Miscellaneous Notes Formattin g of this note is different from the original. I need to be provided more complete information then this. Did they get a catheter back in him successfully and is he doing okay? Did he just leave without a catheter in place? Thank you. Please let me know. Patient Calls (Newest Message First) View All Conversations on this Encounter BRENT Gee routed conversation to You2 hours ago (1:34 PM) JOSE GeeA2 hours ago (1:34 PM) from [facility] calls because pt wasn't able to finish his flow study because they had trouble with the catheter and it started bleeding. I spoke with pt and he said they placed a new chaidez. He said his urine is on the darker side. I told him to push the water and that should help. Pt said he has an appointment with you on Sunday. documented in this encounter [facility] 05-06-2024 Telephone encount er Note I need to be provided more complete information then this. Did they get a catheter back in him successfully and is he doing okay? Did he just leave without a catheter in place? Thank you. Please let me know. Patient Calls (Newest Message First) View All Conversations on this Encounter BRENT Gee routed conversation to You2 hours ago (1:34 PM) MARY Gee hours ago (1:34 PM) from [facility] calls because pt wasn't able to finish his flow study because they had trouble with the catheter and it started bleeding. [facility] 05-06-2024 Telephone encount er Note I spoke with pt and he said they placed a new chaidez. He said his urine is on the darker side. I told him to push the water and that should help. Pt said he has an appointment with you on Sunday. [facility] 12-01-2023 Progress note Note Date/Time December 01, 2023 8:56am [facility] [address] [place] [address] Gastroenterology PN Signed Patient: Jesús Babcock MR#: [id number] : 1940 Acct:[id number] Age/Sex: 83 / M Adm Date: 4 Loc: Room: [address] [place] [address] Type: ADM IN Attending Dr: George Romero MD Copies to: MD Cameron Duffy DO Cameron J Ditty, MD~ Date of Service: 12/01/2023 Subjective Subjective [...] signed by Asim Mathur MD> 12/01/[address] [facility] Work Phone: 1(216) 956-289205-03-2024 Progress note Author George Romero [facility] November 30, 2023 1:31pm Note Date/Time November 30, 2023 11:35a m [facility] [address] [place] [address] Hospitalist Progress Note Signed Patient: Jesús Babcock MR#: [id number] : 1940 Acct:[id number] Age/Sex: 83 / M Adm Date: 4 Loc: Room: [address] [place] [address] Type: ADM IN Attending Dr: George Romero [...] of care and confirmed it with the resident/student/MANAGER OF INVESTIGATIONS. Patient is seen and evaluated on 4 progressive. Patient states that he is not doing great this morning. He he noted some blood in his urine. It is unsure whether or not he showed this to nurses. He states this started yesterday and has continued into today. He denies any pain. Znxji-gq-btha ultrasound was performed and demonstrated approximately 450 [...] overflow/prostamegaly Chronic prostamegaly with outpatient urologist in [place], has been recommended prostate procedure Currently on [...] <Electronically signed by George Romero MD> 11/30/23 1331 [facility] Work Phone: 1(175) 287-994905-03-2024 Consult note Author Syed Buchanan [facility] November 30, 2023 12:18pm Note Date/Time November 30, 2023 12:18p m [facility] [address] [place] [address] Urology Consult Note Signed Patient: Jesús Babcock MR#: [id number] : 1940 Acct:[id number] Age/Sex: 83 / M Adm Date: 4 Loc: Room: [address] [place] [address] Type: ADM IN Attending Dr: George Romero MD Copies to: MD Cameron Duffy DO Christopher S Reese, MD~ History of Present Illness Consult Details Consult Date: 11/30/2023 Reason for Urology Consult: Obstructive uropathy Requesting Provider: George Romero MD HPI: 83 yo long hx of bph and elevated psa sees dr kellogg in [place] on flomax daily and had a negative prostate biopsy a few yrs ago for psa 13 now adm with bloody stools and diahrrea and has incomplete emptying and is refusing chaidez asked to see Review of Systems Gastrointestinal Gastrointestinal: Reports diarrhea and Reports hematochezia Genitourinary Genitourinary: Reports difficulty urinating, Reports hematuria, Reports urinary frequency, Reports urinary incontinence and Reports urinary urgency [facility] Medical History (Updated 11/30/23 @ 12:17 by Syed Buchanan MD) Urinary retention due to benign prostatic hyperplasia pt refusing chaidez presently Hypertension Chronic kidney disease (CKD) Lumbar spondylosis Hypercholesterolemia Atherosclerosis of [place] arteries of extremities with intermittent claudication, bilateral legs Unspecified atrial flutter Tongue lesion Supraventricular tachycardia Spondylosis without myelopathy or radiculopathy, lumbar region (04/05/17) Other spondylosis with myelopathy, lumbar region Other spondylosis with myelopathy, cervical region Other retirement (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 Motor neuron disease Iron [...] % (Auto) 65.8, Lymph % (Auto) 22.7, Thomas % (Auto) 9.2, Eos % (Auto) 1.6, Baso % (Auto) 0.7, Nucleat RBC Rel Count 0.1, Neut # (Auto) 4.8, Lymph # (Auto) 1.7, Thomas # (Auto) 0.7, Eos # (Auto) 0.1, [...] signed by Syed Buchanan MD> 11/30/[address] 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 Evaluated at bedside. Continues to deny pain. Has had multiple bowel movementswhile here with blood clots present. 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 Bladder scan by nursing showed around 570 mL postvoid. Ikghm-qu-tpco ultrasound also showed 500 mL sometime later. Patient does have urologist outpatient who wants him to be seen in [place]. Currently denies dysuria, fever sweats or chills, worsening back pain. Discussed with the patient concern for prolonged urinary retention 500 mL plus and potential long-term damage to kidneys and possible infection. We recommended urinary Chaidez to drain the bladder, he refused the Chaidez and requested more time to think on accepting the Chaidez. Was transferred from [facility] overnight, no other events General: ANO x3, [...] overflow/prostamegaly Chronic prostamegaly with outpatient urologist in [place], has been recommended prostate procedure Currently on [...] Lactated Ringers IV 11/30/23 01:39 75 mls/hr .[id number] SOFY Administration Ondansetron HCl 4 mg 11/28/23 [...] <Electronically signed by DO EVAN Brown> 11/29/[address] [facility] Work Phone: 1(444) 680-399905-02-2024 Progress note Author Asim Mathur [facility] November 29, 2023 12:29pm Note Date/Time November 29, 2023 12:29p [facility] [address] [place] [address] Gastroenterology PN Signed Patient: Jesús Babcock MR#: [id number] : 1940 Acct:[id number] Age/Sex: 83 / M Adm Date: 4 Loc: Room: [address] [place] [address] Type: ADM IN Attending Dr: George Romero MD Copies to: MD Cameron Duffy,DO Asim Mathur MD~ Date of Service: 11/29/2023 Subjective Subjective [...] Lactated Ringers IV 11/30/23 01:39 75 mls/hr .[id number] SOFY Administration Magnesium Sulfate 4 gm in [...] <Electronically signed by Asim Mathur MD> 11/29/23 1229 [facility] Work Phone: 1(901) 975-553605-02-2024 Consult note Author Asim Mathur [facility] November 29, 2023 8:31am Note Date/Time November 29, 2023 8:13am [facility] [address] [place] [address] Gastroenterology Consult Note Signed Patient: Jesús Babcock MR#: [id number] : 1940 Acct:[id number] Age/Sex: 83 / M Adm Date: 4 Loc: Room: [address] [place] [address] Type: ADM IN Attending Dr: George Romero [...] Hematologic/Lymphatic: Denies easy bruising and Denies lymphadenopathy [facility] Medical History (Updated 11/29/23 @ 08:31 by Asim Mathur MD) Hypertension Chronic kidney disease (CKD) Lumbar spondylosis Hypercholesterolemia Atherosclerosis of [place] arteries of extremities with intermittent claudication, bilateral legs Unspecified atrial flutter Tongue lesion Supraventricular tachycardia Spondylosis without myelopathy or radiculopathy, lumbar region (04/05/17) Other spondylosis with myelopathy, lumbar region Other spondylosis with myelopathy, cervical region Other retirement (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 Motor neuron disease Iron [...] MPV Neut % (Auto) Lymph % (Auto) Thomas % (Auto) Eos % (Auto) Baso % (Auto) Nucleat RBC Rel Count Neut # (Auto) Lymph # (Auto) Thomas # (Auto) Eos # (Auto) Baso # (Auto) PT INR APTT PHA Creatinine Clear Sodium Potassium Chloride Carbon Dioxide Anion Gap BUN Creatinine Est GFR (CKD-EPI) Glucose Calcium Magnesium Total Bilirubin Direct Bilirubin Indirect Bilirubin AST ALT Alkaline Phosphatase Total Protein Albumin Globulin Albumin/Globulin Ratio Blood Type O Negative Blood Type Recheck O Negative Antibody Screen Negative Crossmatch ([facility]) See Detail 11/29/23 04:08 Corrected WBC 7.3 Uncorrected WBC Count 7.3 RBC 3.14 L Hgb 10.4 L Hct 30.3 L MCV 96.4 MCH 33.1 MCHC 34.3 RDW 13.8 Plt Count 207 MPV 9.1 Neut % (Auto) 65.8 Lymph % (Auto) 22.7 Thomas % (Auto) 9.2 Eos % (Auto) 1.6 Baso % (Auto) 0.7 Nucleat RBC Rel Count 0.1 Neut # (Auto) 4.8 Lymph # (Auto) 1.7 Thomas # (Auto) 0.7 Eos # (Auto) 0.1 [...] Type Blood Type Recheck Antibody Screen Crossmatch ([facility]) A&P - Gastroenterology Assessment/Plan (1) Diverticulosis: (2) [...] signed by Asim Mathur MD> 11/29/23 0831 [facility] Work Phone: 1(458) 305-807605-02-2024 History and physical note Author Lane Carlos [facility] November 29, 2023 12:14am Note Date/Time November 28, 2023 11:13p m [facility] [address] [place] [address] Hospitalist H&P Signed Patient: Jesús Babcock MR#: [id number] : 1940 Acct:[id number] Age/Sex: 83 / M Adm Date: 4 Loc: 4 Room: [address] [place] [address] Type: ADM IN Attending Dr: Falguni Brasher MD Copies to: DO Lane Lundberg DO Obaydah M Daromar, MD Paula G Smith, FIELD RESEARCH ASSOCIATE~ HPI DATE OF EXAMINATION: 11/28/23 CHIEF COMPLAINT: bloody stools HISTORY OF PRESENT ILLNESS: Mr. Babcock is an 83-year-old male with a PMH of A-fib, abrasion years ago not on anticoagulation, severe polyneuropathy, HTN, iron deficiency anemia, GERD, SVT, spondylosis, tobacco dependence?daily cigar smoker that presented to the [facility] emergency room for bloody stools. Patient states [...] of the abdomen pelvis performed at the [facility] shows colonic diverticulosis with evidence of active [...] unless noted in the HPI or below. [facility] Medical History (Updated 11/28/23 @ 23:36 by Bárbara Ramirez APRN) Hypertension Chronic kidney disease (CKD) Lumbar spondylosis Hypercholesterolemia Atherosclerosis of [place] arteries of extremities with intermittent claudication, bilateral legs Unspecified atrial flutter Tongue lesion Supraventricular tachycardia Spondylosis without myelopathy or radiculopathy, lumbar region (04/05/17) Other spondylosis with myelopathy, lumbar region Other spondylosis with myelopathy, cervical region Other retirement (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 Motor neuron disease Iron [...] but thinks it may have been in [place]. This patient was seen before midnight on November 27. My signature on this documentoccurred after midnight and in the group segment consultant hours of November 28 due to EHR [...] By: <Electronically signed by AUSTEN Ramirez> 11/28/23 7114 <Electronically signed by Lane Carlos DO> 11/29/[address] [facility] Work Phone: 1(570) 348-108012-13-2023 Evaluation note* Encounter Date Diagnosis Assessment Notes [...] drinking prior to bedtime. Weight loss. PPI [employer] Other 12-03-2023 Evaluation note* Encounter Date Diagnosis Assessment Notes Treatment Notes Treatment Clinical Notes Jun, Primary hypertension (ICD-10 - I10) [employer] Other 2023 Evaluation note* Encounter Date Diagnosis [...] Neurology w/ suggestion w/ referral to Neurosurgery [facility] [email or web address] Other 07-31-2023 History and physical note Author Gene Nguyễn [facility] February 26, 2023 9:20am Note Date/Time February 26, 2023 9:20 am [facility] [address] [place] [address] Gastroenterology H&P Signed Patient: Jesús Babcock MR#: [id number] : 1940 Acct:[id number] Age/Sex: 82 / M Adm Date: 3 Loc: Room: Type: [facility] Attending Dr: Gene Nguyễn MD Copies to: DO Gene Lundberg MD~ Date of Service: 02/26/2023 HISTORY & [...] <Electronically signed by Gene Nguyễn MD> 02/26/23919 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 MRI pending Decision on MRI/fusion bx pending Oct, Other retention of urine (ICD-10 - R33.8) [employer] Other 03-22-2023 Evaluation note* Encounter Date Diagnosis Assessment Notes Treatment Notes Treatment Clinical Notes Sep, Anemia, unspecified type (ICD-10 - D64.9) [employer] Other 01-31-2022 Evaluation note* Encounter Date Diagnosis [...] region with neurogenic claudication (ICD-10 - M48.062) [employer] Other 01-05-2022 Evaluation note* Encounter Date Diagnosis [...] Jul, Idiopathic peripheral neuropathy (ICD-10 - G60.9) [facility] [email or web address] Other evaluation noteNo InformationNortEncompass Health [email or web address] Other Evaluation noteNo assessment information available [facility] Work Phone: Evaluation note* Diagnosis Onset Date Resolution Status Benign prostatic hyperplasia with lower urinary tract symptoms acute Cervical spondylosis with radiculopathy acute Chronic kidney disease (CKD) acute CTS (carpal tunnel syndrome) acute Left foot drop acute Lumbar spondylosis acute Sacroiliac inflammation acut e Severe carpal tunnel syndrome of both wrists acute Spondylolisthesis, lumbar region acute [facility] Work Phone: Evaluation note* Diagnosis Onset Date [...] left wrist acute Pre-operative cardiovascular examination acute [facility] Work Phone: Evaluation note* Diagnosis Onset Date [...] retention due to benign prostatic hyperplasia acute [facility] Work Phone: Evaluation note* Diagnosis Onset Date [...] acute Diverticular hemorrhage acut e Hypertension acute [facility] Work Phone: Evaluation note* Diagnosis Onset Date [...] hyperplasia with lower urinary tract symptoms resolved [facility] Work Phone: Evaluation note* Diagnosis Onset Date Resolution Status Acute blood loss anemia acut e Benign prostatic hyperplasia with lower urinary tract symptoms acute Hypertension acute Lumbar spondylosis with myelopathy acute Hypertension acute Left shoulder pain acute Primary osteoarthritis, left shoulder acute [facility] Work Phone: Evaluation note* Diagnosis Onset Date Resolution Status Hypertension acute Left shoulder pain acute Lower extremity edema acute Primary osteoarthritis, left shoulder acute [facility] Work Phone: Evaluation note* Diagnosis Onset Date Resolution Status Hypertension acute Left shoulder pain acute Lower extremity edema acute Primary osteoarthritis, left shoulder acute Benign prostatic hyperplasia with lower urinary tract symptoms acute Hypertension acute Lumbar spondylosis with myelopathy acute [facility] Work Phone: Evaluation note* Diagnosis Onset Date Resolution Status Hypertension acute Left shoulder pain acute Lower extremity edema acute Primary osteoarthritis, left shoulder acute Benign prostatic hyperplasia with lower urinary tract symptoms acute Gastroesophageal reflux dise ase with esophagitis without hemorrhage acute Hematuria acute Hypertension acute Lumbar spondylosis with myelopathy acute [facility] Work Phone: Evaluation note* Diagnosis Urologic disorders- Primary Unspecified disorder of urethra and urinary tract Benign prostatic hyperplasia with urinary hesitancy Elevated PSA Elevated prostate specific antigen (PSA) documented [facility] this [facility] - [facility]* Type Description Date Medical History hypertension Medical History Arthritis Medical History Atrial fibrillation Surgical History cataract extraction Surgical History colonoscopy Surgical History cyst removal Surgical History prostate biopsy Surgical History ear reconstruction Surgical History leg surgery, fx RT distal tib/f ib Surgical History tonsillectomy Surgical History colonoscopy 05/2017 Surgical History e/o tongue lesion, Timmis 019 Hospitalization History See Above [employer] Other History general Narrative - Reported* Type [...] History Cystoscopy 09/2022 Hospitalization History See Above [employer] Other History [facility] Other History general Narrative - Reported* Type [...] History Colonoscopy 01/2023 Hospitalization History See Above [employer] Other Hospital Discharge instructions Additional Instructions DISCHARGE [...] NOT operate machinery such as power tools, [employer] mowers, snow blowers, sewing machines, etc. for [...] 40 mg daily [address] [facility] Work Phone: Hospital Discharge instructions Additional Instructions [...] see your physician in two weeks. [ ][facility] Work Phone: Hospital Discharge instructions Additional Instructions Follow-up with your urologist Return as needed Take your Vicodin prescription and get it filled and take as needed for pain [facility] Work Phone: Hospital Discharge instructionsAmbulatory Orders* Referral to ENT Time Frame: 04/24/24, Location: None Selected [facility] Work Phone: InstructionsNot on filedocumented in this encounter [facility]Not on filedocumented in this encounter [facility] SystemInstructionsNot on filedocumented in this encounter [facility] SystemReason for referral (narrative)* Reason *Waiting for appt Referral for screening colonoscopy and EGD Diagnosis 1 Iron deficiency anem ia due to chronic blood loss (D50.0) Diagnosis 2 Colon cancer screeni ng (Z12.11) Referral Organization [facility] mónica Referring Provider First Name Cameron Referring Provider Last Name Mekhi Referring Provider Specialty Internal Me dicine Referred Organization [facility] Referred Provider Gene Nguyễn Referred Address [address] [place],[address] Referred Provider Specialty Gastroentero logy Referral Priority [...] 01/03/2023 12:47:36 PM >received today, sent P2P [employer] Other Reason for Referral Reason Evaluate LLE EM G Diagnosis 1 Idiopathic periphera l neuropathy (G60.9) Referral Organization [facility] urosurgery Referring Provider First Name Hiren Referring Provider Last Name Rekha Referring Provider Specialty Neurosurger y Referred Organization [facility] Referred Provider Syed Ireland Referred Address [address] [place],[address] Referred Provider Specialty Neurology Referral Priority Routine General Notes Deatrick, Mei 12/2021 11:59:35 AM >Received today will send once note is locked Reason Evaluate and Tr eat Diagnosis 1 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) Referral Organization [facility] urosurgery Referring Provider First Name Hiren Referring Provider Last Name Rekha Referring Provider Specialty Neurosurger y Referred Organization [facility] Referred Provider Raul Orellana Referred Address [address], [place],[address] Referred Provider Specialty Neurology Referral Priority Routine General Notes Chelle Garcia 022 02:51:14 PM >Received today and waiting for office notes to be locked Summary Purpose Family History No Family History Records Found Relationship Condition Age at Onset Recorded Date/T [...] Malignant neoplasm of colon Unknown Advance Directives No Advanced Directives Records Found Advance Directive Response Recorded Date/ Time Advance [...] examination Chief Complaint Check Up Ref Dr Gaming, [...] examination Chief Complaint Check Up Ref Dr Gaming, [...] bleed/divertivular bleed Rectal bleed/divertivular bleed Amb Documentation [facility] follow up Reason for Visit Benign prostatic [...] bleed/divertivular bleed Rectal bleed/divertivular bleed Amb Documentation [facility] follow up 6 month follow up Reason [...] Reason for Visit Acute blood loss ane kalne Benign prostatic hyperplasia with lower urinary tract symptoms Hypertension Lumbar spondylosis with myelopathy Hypertension Left shoulder pain Primary osteoarthritis, left shoulder Chief Complaint left shoulder inject ion cath issues Reason for Visit Hypertension Left shoulder pain Lower extremity edema Primary osteoarthritis, left shoulder Chief Complaint left shoulder inject ion cath issues back pain Reason for Visit Hypertension Left shoulder pain Lower extremity edema Primary osteoarthritis, left shoulder Benign prostatic hyperplasia with lower urinary tract symptoms Hypertension Lumbar spondylosis with myelopathy Chief Complaint left shoulder inject ion cath issues back pain Reason for Visit Hypertension Left shoulder pain Lower extremity edema Primary osteoarthritis, left shoulder Benign prostatic hyperplasia with lower urinary tract symptoms Gastroesophageal reflux disease with esophagitis without hemorrhage Hematuria Hypertension Lumbar spondylosis with myelopathy Additional Source Comments REASON FOR VISIT (unrecogniz ed section and content) Reason Comments Follow-up 2 week f/u per (unrecognized sect ion and content) No Status Records FoundNo Status Records FoundNo Status Records FoundNo Status Records FoundNo Status Records FoundNo Status Records Found INFORMATION SOURCE (unrecogn ized section and content) DATE CREATED AUTHOR 11/03/2022 [facility] DATE CREATED AUTHOR AUTHOR'S ORGANIZ ATION 02/13/2024 [facility] DATE CREATED AUTHOR AUTHOR'S ORGANIZ ATION 04/25/2024 [facility] DATE CREATED AUTHOR AUTHOR'S ORGANIZ ATION 05/08/2024 [facility] DATE CREATED AUTHOR AUTHOR'S ORGANIZ ATION 05/11/2024 [facility] DATE CREATED AUTHOR AUTHOR'S ORGANIZ ATION 05/15/2024 [facility] Care Teams (unrecognized sec tion and content) Team Status: Active Member Role Status Dates Cameron Gaming DO Primary Care Provider Active Team Status: Inactive Member Role Status Dates Cameron Gaming DO Primary Care Provide r, Attending Provider Active Start: March 28, 2024 End: March 28, 2024 Team Status: Active Member Role Status Dates Cameron Gaming DO Primary Care Provider Active Start: April 13, 2024 David Burleson Attending Provider Active Start: April 13, 2024 Team Status: Inactive Member Role Status Dates Cameron Gaming DO Primary Care Provider Active Start: April 14, 2024 End: April 14, 2024 Nhan Ramirez MD Emergency Provider Active Star t: April 14, 2024 End: April 14, 2024 Team Status: Active Member Role Status [...] 2023 Team Status: Inactive Member Role Status Maraielena Gaming DO Primary Care Provider Active Start: [...] 2023 Team Status: Active Member Role Status Dates Cameron Gaming DO Primary Care Provider Active Start: November 14, 2023 John Adam MD Attending Provider, Other Provider A ctive Start: November 14, 2023 Team Status: Active Member Role Status Dates Cameron Gaming DO Primary Care Provider Active Start: November 28, 2023 Catie Sanches PA-C Attending Provider Active Start: November 28, 2023 Team Status: Inactive Member Role Status Dates Cameron Gaming DO Primary Care Provider Active Start: November 28, 2023 End: December 01, 2023 Lane Carlos DO Admit Provider Active Start: November 28, 2023 End: December 01, 2023 George Romero MD Attending Provider Active St art: November 28, 2023 End: December 01, 2023 Asim Mathur MD Other Provider Active Start : November 28, 2023 End: December 01, 2023 Syed Buchanan MD Other Provider Active S tart: November 28, 2023 End: December 01, 2023 Team Status: Active Member Role Status Dates Cameron Gaming DO Primary Care Provider Active Start: November 29, 2023 Lane Carlos DO Admit Provider Active Start: November 29, 2023 George Romero MD Other Provider Active Start: November 29, 2023 Asim Mathur MD Attending Provider Active S tart: November 29, 2023 Team Status: Active Member Role Status Dates Cameron Gaming DO Primary Care Provider Active Start: December 04, 2023 BRENT Calloway Attending Provider Active St art: December 04, 2023 Team Status: Inactive Member Role Status Dates Cameron Gaming DO Primary Care Provide r, Attending Provider Active Start: December 06, 2023 End: December 06, 2023 Team Status: Active Member Role Status Dates Cameron Ball , DO Primary Care Provider Active Start: November 29, 2023 End: December 01, 2023 Lane Carlos DO Admit Provider Active Start: November 29, 2023 End: December 01, 2023 George Romero MD Other Provider Active Start: November 29, 2023 End: December 01, 2023 Asim Mathur MD Attending Provider Active S tart: November 29, 2023 End: December 01, 2023 Team Status: Inactive Member Role Status Dates Cameron Gaming DO Primary Care Provide r, Attending Provider Active Start: April 18, 2024 End: April 18, 2024 Team Status: Active Member Role Status Dates Cameron Gaming DO Primary Care Provide r, Attending Provider Active Start: April 24, 2024 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 Relationship Specialty Start Date End Date Cameron Gaming DO [address] [place] [id number] PCP - General Internal Medicine 03/01/19 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 [facility]. provides no warranty or guarantee of the accuracy or completeness of information in this document.
== END 2024-05-15 12:46 | disposition home or self-care (01) ==
LOC: FL 12:46
PROVIDERS: PCP Internal Medicine; Visit Provider Otolaryngology
DX: R13.14 Dysphagia, pharyngoesophageal phase (principal); K22.2 Esophageal obstruction
CPT/HCPCS: 74220; 76120

== ENCOUNTER 2024-08-25 13:16 | Outpatient (OUT) | payer MEDICARE, SELFPAY ==
[2024-08-25 13:53] LABS: Basophils Percent Auto 0.5 % (0.2-2.0); Eosinophils Absolute Auto 0.2 10^3/uL (0.0-0.7); Eosinophils Percent Auto 2.2 % (0.9-7.0); Hematocrit 40.7 % (42.0-54.0); Hemoglobin 13.8 g/dL (14.0-18.0); Immature Granulocytes Abs Auto 0.02 10^3/uL (0.00-0.03); Immature Granulocytes Pct Auto 0.3 % (0.0-0.5); Lymphocytes Absolute Auto 1.4 10^3/uL (1.2-3.8); Lymphocytes Percent Auto 19.2 % (20.5-60.0); Mean Corpuscular HGB Conc 33.9 g/dL (29.9-35.2); Mean Corpuscular Hemoglobin 32.3 pg (25.9-34.0); Mean Corpuscular Volume 95.3 fL (80.0-94.0); Mean Platelet Volume 9.7 fL (9.5-13.5); Monocytes Absolute Auto 0.6 10^3/uL (0.3-0.8); Monocytes Percent Auto 8.6 % (1.7-12.0); Neutrophils Absolute Auto 5.1 10^3/uL (1.4-6.5); Neutrophils Percent Auto 69.2 % (43.0-75.0); Platelet Count 281 10^3/uL (150-450); Red Blood Count 4.27 10^6/uL (4.70-6.10); Red Cell Distribution Width 13.4 % (11.0-15.0); White Blood Count 7.4 10^3/uL (4.0-11.0)
[2024-08-25 14:05] LABS: Alanine Aminotransferase 21 U/L (16-63); Albumin Level 3.5 g/dL (3.4-5.0); Alkaline Phosphatase 170 U/L (46-116); Anion Gap 8.3; Aspartate Amino Transferase 22 U/L (15-37); BUN Creatinine Ratio 18.6; Bilirubin Total 0.6 mg/dL (0.2-1.0); Calcium 9.4 mg/dL (8.5-10.1); Carbon Dioxide 36.5 mmol/L (21.0-32.0); Chloride 98 mmol/L (98-107); Estimated GFR (African America >60 (>=60 mL/min/1.73m^2); Estimated GFR (Non-African Ame >60 (>=60 mL/min/1.73m^2); Globulin 3.4 g/dL; Glucose 97 mg/dL (74-106); Potassium 3.8 mmol/L (3.5-5.1); Sodium 139 mmol/L (136-145); Total Protein 6.9 g/dL (6.4-8.2)
== END 2024-08-25 13:17 | disposition home or self-care (01) ==
LOC: LAB 13:18
PROVIDERS: PCP Internal Medicine; Visit Provider Internal Medicine
DX: E78.00 Pure hypercholesterolemia, unspecified (principal); I10 Essential (primary) hypertension; M47.16 Other spondylosis with myelopathy, lumbar region
CPT/HCPCS: 36415; 80053; 85025

== ENCOUNTER 2024-11-04 12:53 | Outpatient (OUT) | payer MEDICARE, SELFPAY ==
--- NOTE | 2024-11-04 13:00 | CA_ITS ---
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 Interpretive Statements Summary of the findings: Right leg: LEAH= 0.98; TBI= 0.51. Doppler waveforms demonstrate monophasic flow at the posterior tibial and dorsalis pedis arteries. Left leg: LEAH= 0.81; TBI= 0.44. Doppler waveforms demonstrate monophasic flow at the posterior tibial and dorsalis pedis arteries. Segmental pressures: Segmental pressures show evidence of significant left femoropopliteal and infrapopliteal disease. Pulse volume recordings: PVRs show reduced perfusion at the right ankle level and at the left below knee and ankle levels. Conclusion: Right and left ankle-brachial indices are suggestive of borderline right-sided and mildly reduced left-sided overall arterial flow at rest. Toe-brachial indices are suggestive of PAD. Segmental pressures show evidence of significant left femoropopliteal and infrapopliteal disease. Pulse volume recordings indicate reduced perfusion at the right ankle level and at the left below knee and ankle levels. The study shows evidence of PAD with reduced overall arterial flow at rest, mostly involving the left leg. Electronically Signed On 11-04-2024 20:12:45 EDT by KMUAR KRAUSE M.D.
== END 2024-11-04 12:54 | disposition home or self-care (01) ==
LOC: CARD 12:53
PROVIDERS: PCP Internal Medicine; Visit Provider Internal Medicine
DX: I73.9 Peripheral vascular disease, unspecified (principal)
CPT/HCPCS: 93923

== ENCOUNTER 2024-11-07 15:02 | Outpatient (OUT) | payer MEDICARE, SELFPAY ==
--- OUTSIDE RECORDS SUMMARY | 2024-11-07 15:17 | XMS_ITS | CCD ---
Author Organization [facility] Care Team Providers Care Swimming Teacher Name Role Phone Hiren Da Silva Unavailable Cameron Chambers Unavailable MISC, DR SAMUEL Admitting Unavailable JENNIFER, [...] Consulting Unavailable Gene Nguyễn Unavailable DO Cameron Chambers Primary Care Provider MD Gene Nguyễn Attending Provider Asim Mathur Unavailable DO Cameron Chambers Primary Care Provider LUKE Noguera Attending Provider MD Sushil Goodman Attending Provider MD John Adam Attending Provider [phone] Admit Provider MD George Romero Attending Provider MD Asim Mathur Other Provider [phone] MD Syed Buchanan Other Provider DO Cameron Chambers Primary Care Provider MD Syed Buchanan Other Provider Damon PATEL Attending Unavailable Syed Buchanan Referring Unavailabl e Syed Buchanan Attending Unavailabl e Ball, DO Cameron Primary Care Provider [phone] MD Nhan Ramirez Emergency Provider ALEXANDER DAMON Attending Unavailable Cameron Chambers MD Primary Care Provider Ball DO, Cameron Primary Care Provider Nhan Ramirez MD Emergency Provider [phone] Gopi AKINS, Immeghan Attending Provider ULISES GOETZ JR Attending Unavailable ULISES GOETZ JR Referring Unavailable BALL, CAMERON E Primary Care Unavailable BALL, CAMERON E Referring Unavailable BALL, CAMERON E Primary Care Unavailable Ball DO, Cameron E Primary Care Provider Trish RAMOS, Cameron Primary Care Provider Trish, Cameron Primary Care Unavailable Adam, John E Admitting Unavailable Adam, John E Attending Unavailable Asim Mathur Consulting Unavailable Ball, Cameron Primary Care Unavailable George Romero Attending Unavailable Lane Carlos Admitting Unavailabl e Syed Buchanan Consulting Unavailable Asaad, Imad Admitting Unavailable Asaad, Imad Attending Unavailable Ball, Cameron Primary Care Unavailable Nhan Ramirez Admitting Unavailable Nhan Ramirez Attending Unavailable Trish, Cameron Primary Care Unavailable Sushil Goodman Admitting Unavai lable Sushil Goodman Attending Unavai lable Ball, Cameron Primary Care Unavailable Lesvia Noguera Admitting Unavailable Lesvia Noguera Attending Unavailable Ball, Cameron Primary Care Unavailable Ball, Cameron Primary Care Unavailable Adam, John E Admitting Unavailable Adam, John E Attending Unavailable BALL, CAMERON E Referring Unavailable BALL, CAMERON E Primary Care Unavailable BALL, CAMERON E Referring Unavailable BALL, CAMERON E Primary Care Unavailable ULISES GOETZ JR Attending Unavailable BALL, CAMERON E Referring Unavailable BALL, CAMERON E Primary Care Unavailable ULISES GOETZ JR Attending Unavailable BALL, CAMERON E Referring Unavailable BALL, CAMERON E Primary Care Unavailable RALPH, HARSHIL G Attending Unavailable BALL, CAMERON E Referring Unavailable BALL, CAMERON E Primary Care Unavailable LISA WALTER Attending Unavailable BALL, CAMERON E Referring Unavailable BALL, CAMERON E Primary Care Unavailable ULISES GOETZ JR Attending Unavailable TRISH, CAMERON E Referring Unavailable BALL, CAMERON E Primary Care Unavailable ULISES GOETZ JR Attending Unavailable BALL, CAMERON E Referring Unavailable BALL, CAMERON E Primary Care Unavailable Allergies Allergy Classification Reported Allergen(s) Allergy Type Date of Onset Reaction(s) Facility (20 sources) Ciprofloxacin; Translations: [CIPROFLOXACIN] Drug Allergy 04-30-20 15 Hives, Itching [facility] (2 sources) Ciprofloxacin; Translations: [Cipro] Drug Allergy 05-28-20 17 [facility] Repository (8 sources) HMG-CoA reductase inhibitor Drug allergy Unknown [facility] Spark Authors Other (9 sources) tamsulosin Drug Allergy 10-10-19 24 Unknown, Unknown Reaction [facility] (1 source) tamsulosin Drug Allergy Unknown [facility] Spark Authors Other (2 sources) Obwrzph-PXD-PfT Reductase Inhibitor Allergy to substance 10-10-19 Unknown Reaction [facility] (1 source) Ciprofloxacin Drug Allergy 08-25-19 [facility] Repository [...] 1:00am Start: 02-26-2023 End: 09-21-2023 take 1 capsule by mouth once daily Aspirin 81 mg Capsule Discontinued 81 MG PO Daily February 26, 2023 12:00am September 21, 2023 3:14pm Start: 04-22-2020 End: 02-26-2023 take 1 tablet by mouth once daily Aspirin 81 mg Tablet,Delayed Release (Dr/Ec) Discontinued 81 MG PO Daily April 22, 2020 12:00am February 26, 2023 8:03am On Hold: hold until Dr Da Silva resumes take 1 tablet by once daily Aspirin 81 81 MG 1 tablet Orally Once a day Active baclofen 10 mg oral tablet (12 sources) gamma-Aminobutyric Acid-ergic Agonist take 1 tablet by mouth in the morning baclofen (LIORESAL) 10 mg tablet Take 1 tablet (10 mg total) by mouth in the morning. Active cefadroxil 500 mg oral capsule (1 source) Cephalosporin Antibacterial Start: 04-24-20 End: 04-24-20 take 1 capsule by mouth every hour cefaDROXil (DURICEF) 500 mg capsule Take 1 capsule by mouth 1 hour prior to bladder testing 1 capsule 04/24/2024 04/24/2024 Active dutasteride 0.5 mg oral capsule (20 sources) 5-alpha Reductase Inhibitor Start: 12-01-19 End: 05-29-20 take 1 capsule by mouth in the morning dutasteride (AVODART) 0.5 mg capsule Take 1 capsule (0.5 mg total) by mouth in the morning. 90 capsule 3 04/24/2024 Active famotidine 20 mg oral tablet (6 sources) Histamine-2 Receptor Antagonist Start: 05-29-20 take 1 tablet by mouth once daily Famotidine (Acid Controller) 20 mg tablet Active 20 MG PO Daily May 29, 2024 12:00am famotidine (Pepc id) 10 MG tablet Take 20 mg by mouth Active hydroCHLOROthiazide 25 mg oral tablet (20 sources) Thiazide Diuretic Start: 02-04-2024 End: 07-14-2024 take 1 tablet by mouth once daily hydroCHLOROthiazide (HYDRODIURIL) 25 mg tablet Take 1 tablet (25 mg total) by mouth daily. 02/04/2024 Active Start: 01-18-2024 End: 02-04-2024 take 2 tablets by mouth once daily in the morning Hydrochlorothiazide 12.5 mg tablet Discontinued 25 MG PO Every morning 60 January 18, 2024 4:23pm February 04, 2024 12:39pm Start: 01-18-2024 End: 02-04-2024 take 25 mg by mouth once daily in the morning Hydrochlorothiazide Discontinued 25 MG PO Every morning 60 January 18, 2024 4:23pm February 04, 2024 12:39pm Start: 01-15-2024 End: 01-18-2024 take 1 tablet by mouth once daily in the morning Hydrochlorothiazide 12.5 mg tablet Discontinued 12.5 MG PO Every morning January 15, 2024 12:00am January 18, 2024 4:23pm hydroCHLOROthiazide 12.5 mg / lisinopril 10 mg oral tablet (20 sources) Thiazide Diuretic, Angiotensin Converting Enzyme Inhibitor Start: 06-26-2022 End: 06-20-2024 lisinopril-hydroCHLOROthiazi de (PRINZIDE,ZESTORETIC) 10-12.5 mg per tablet 06/26/2022 06/20/2024 Discontinued (Discontinued by another clinician) Start: 04-22-2020 End: 05-29-2024 take 1 tablet by mouth once daily in the morning Lisinopril-Hydrochlorothiazide 10-12.5 m g tablet Discontinued 1 TAB PO Every morning April 22, 2020 12:00am May 29, 2024 9:23am On Hold: Resume on 12/04/23. take 1 tablet by galdino th every twenty-four hours 24 hr metoprolol succinate 25 mg extended release oral tablet (20 sources) beta-Adrenergic Nav Start: 07-07-2024 End: 07-14-2024 take 1 tablet by mouth once daily Metoprolol Succinate 25 mg tablet extended release 24 hr Active 25 MG PO Daily 90 90 July 14, 2024 4:34pm Start: 07-07-2024 End: 07-07-2024 take 1 tablet by mouth once daily Metoprolol Succinate 50 mg tablet extended release 24 hr Discontinued 50 MG PO Daily July 07, 2024 1:00am July 07, 2024 5:19pm Start: 03-29-2024 End: 05-13-2024 metoprolol succinate XL (Top rol-XL) 25 MG 24 hr tablet 03/29/2024 05/13/2024 Discontinued (Therapy completed) Start: 02-26-2023 End: 05-29-2024 take 1 tablet by mouth once daily in the morning Metoprolol Succinate 25 mg tablet extended release 24 hr Discontinued 25 MG PO Every morning February 26, 2023 12:00am May 29, 2024 9:23am Start: 04-22-2020 End: 02-26-2023 take 1 tablet by mouth twice daily Metoprolol Tartrate 50 mg tablet Discontinued 50 MG PO Twice daily April 22, 2020 12:00am February 26, 2023 7:58am take 1 tablet by galdino th every twenty-four hours in the morning metoprolol succinate XL (TOPROL XL) 50 mg 24 hr tablet Take 1 tablet (50 mg total) by mouth in the morning. Active fwsbyiyo-frdf-KX-calcium &mi ns (THERAGRAN-M) 9 mg iron-400 mcg tablet (12 sources) xnosxswh-obic-MF -calcium &mins (THERAGRAN-M) 9 mg iron-400 mcg [...] TAB PO Daily February 26, 2023 12:00am Multivitamin tablet (3 sources) Start: 09-26-2023 take 1 tablet by mouth once daily at bedtime Multivitamin tablet Active 1 TAB PO Daily at bedtime September 26, 2023 1:00am Start: 09-26-2023 take 1 tablet by galdino th once daily at bedtime Multivitamin tablet Active 1 TAB PO Daily at bedtime September 26, 2023 12:00am mupirocin 0.02 mg/mg topical ointment (5 sources) RNA Synthetase Inhibitor Antibacterial Start: 02-13-2023 Mupirocin 2 % 1 application Externally Twice a day for 10 days Jan, Active omeprazole 40 mg delayed release oral capsule (20 sources) Proton Pump Inhibitor Start: 02-26-2023 End: 07-14-2024 omeprazole (PriLOSEC) 40 mg capsule Every morning 11/07/2023 Active ondansetron 4 mg disintegrating oral tablet (20 sources) Serotonin-3 Receptor Antagonist Start: 01-02-2024 ondansetron ODT (Zofran-ODT) 4 MG disintegrating tablet .COMPLEX 01/02/2024 Active Start: 12-20-2023 End: 01-02-2024 take 1 tablet by mouth every six hours as needed for nausea and vomiting Ondansetron 4 mg tablet,disintegrating Active 0 .ROUTE .COMPLEX January 02, 2024 8:39pm DISSOLVE ONE TABLET BY MOUTH EVERY 6 HOURS NEEDED FOR NAUSEA AND/OR VOMITING FOR 5 DAYS Start: 12-06-2023 End: 12-20-2023 take 1 tablet by mouth every six hours as needed for nausea and vomiting Ondansetron 4 mg tablet,disintegrating Discontinued 4 MG PO Every 6 hours as needed for nausea and vomiting 16 12December 06, 2023 12:00am December 20, 2023 3:36pm polyethylene glycol 3350 [id number] mg / potassium chloride 2970 mg / sodium bicarbonate 6740 mg / sodium chloride 5860 mg / sodium sulfate 96522 mg powder for oral solution (6 sources) Osmotic Laxative Start: 01-16-2023 take 236 g by mouth once daily Golytely 236 GM 236 GM Orally THE DAY BEFORE THE COLONOSCOPY for 1 days Dec, Active Start: 01-16-2023 saw palmetto (Serenoa repens) 450 MG capsule (4 sources) Start: 09-26-2023 saw palmetto (Serenoa repens) 450 MG capsule Twice daily 09/26/2023 Active tamsulosin hydrochloride 0.4 mg oral capsule (20 sources) alpha-Adrenerg ic Nav Start: 04-24-2024 End: 05-13-2024 take 1 capsule by mouth every twenty-four hours at bedtime tamsulosin (Flomax) 0.4 MG 24 hr capsule Take 0.8 mg by mouth at bedtime 04/24/2024 05/13/2024 Discontinued (Therapy completed) Start: 02-26-2023 End: 05-29-2024 take 1 capsule by mouth twice daily Tamsulosin 0.4 mg capsule Discontinued 0.4 MG PO Twice daily September 26, 2023 12:17pm March 04, 2024 1:13pm Start: 12-22-2022 End: 05-09-2024 take 2 capsules by mouth once daily tamsulosin (FLOMAX) 0.4 mg capsule Take 2 capsules (0.8 mg total) by mouth nightly. 180 capsule 3 04/24/2024 Active Start: 11-01-2022 take 1 capsule by [facility] every twenty-four hours Tamsulosin HCl 0.4 MG 1 capsule Orally Once a day Oct, Active traMADol hydrochloride 50 mg oral tablet (2 sources) Opioid Agonist Start: 08-25-2024 take 1 tablet by mouth twice daily as needed for pain Tramadol 50 mg tablet Active 50 MG PO Twice daily as needed for pain 14 August 25, 2024 1:00am triamcinolone acetonide 1 mg/ml topical cream (11 sources) Corticosteroid Start: 01-14-2024 End: 05-13-2024 triamcinolone (Kenalog) 0.1 % cream Twice daily 01/14/2024 05/13/2024 Discontinued (Therapy completed) Start: 01-14-2024 End: 05-29-2024 Triamcinolone Acetonide 0.1 % cream Discontinued 1 APPLIC TOPICAL Twice daily January 14, 2024 12:00am May 29, 2024 9:24am vitamin b12 1 mg oral tablet (12 sources) Vitamin B12 take 1 tablet by mouth in the morning cyanocobalamin 1000 MCG tablet Take 1 tablet (1,000 mcg total) by mouth in the morning. Active Completed/Discontinued Medications Medication Drug Class(es) Dates Sig (Normalized) Sig (Original) amoxicillin 875 mg / clavulanate 125 mg oral tablet (8 sources) Penicillin-class Antibacterial Start: 01-23-2024 End: 03-28-2024 take 1 tablet by mouth every twelve hours Amoxicillin-Pot Clavulanate 875-125 mg tablet Discontinued 1 TAB PO Every 12 hours 09 02January 23, 2024 12:00am March 28, 2024 12:01pm celecoxib 200 mg oral capsule (20 sources) Nonsteroidal Anti-inflammatory Drug Start: 09-26-2023 End: 11-28-2023 take 1 capsule by mouth once daily in the morning Celecoxib (Celebrex) 200 mg capsule Discontinued 200 MG PO Every morning September 26, 2023 1:00am November 28, 2023 11:15pm Start: 02-26-2023 End: 09-21-2023 take 1 capsule by mouth once daily Celecoxib 200 mg Capsule Discontinued 200 MG PO Daily February 26, 2023 12:00am September 21, 2023 3:14pm cephalexin 500 mg oral capsule (20 sources) Cephalosporin Antibacterial Start: 04-14-2024 End: 05-29-2024 take 1 capsule by mouth every eight hours Cephalexin 500 mg Capsule Discontinued 500 MG PO Every 8 hours 16 02April 14, 2024 12:00am May 29, 2024 9:22am Start: 11-14-2023 End: 11-28-2023 take 1 capsule by mouth three times daily Cephalexin 500 mg capsule Discontinued 500 MG PO Three times daily November 14, 2023 12:00am November 28, 2023 11:15pm diazePAM 5 mg oral tablet (18 sources) Benzodiazepine Start: 04-28-2020 End: 02-26-2023 take 1 tablet by mouth four times daily as needed for muscle spasms Diazepam 5 mg Tablet Discontinued 5 MG PO Four times daily as needed for Muscle Spasm 40 April 28, 2020 12:00am February 26, 2023 8:03am doxycycline hyclate 100 mg oral capsule (17 sources) Tetracycline-class Drug Start: 01-14-2024 End: 03-28-2024 take 1 capsule by mouth twice daily Doxycycline Hyclate 100 mg capsule Discontinued 100 MG PO Twice daily 14 January 14, 2024 12:00am March 28, 2024 12:01pm Start: 02-13-2023 take 1 capsule by [facility] twice daily as needed Doxycycline Hyclate 100 MG 1 capsule Orally twice daily for 7 days Jan, Not-Taking/PRN gabapentin 100 mg oral capsule (20 sources) Anti-epileptic Agent Start: 10-24-2023 End: 05-29-2024 take 2 capsules by mouth once daily at bedtime Gabapentin 100 mg capsule Discontinued 200 MG PO every day in the morning and at bedtime October 24, 2023 12:00am May 29, 2024 9:23am Start: 10-24-2023 take 200 mg by mouth [...] (NEURONTIN) 100 m g capsule 12/13/2022 Active Start: 12-13-2022 End: 07-06-2024 take 1 capsule by mouth once daily in the morning, then take 3 capsules by mouth once daily at bedtime gabapentin (Neurontin) 100 MG capsule Indications: Polyneuropathy TAKE 1 CAPSULE BY MOUTH EVERY MORNING AND TAKE THREE CAPSULES BY MOUTH EVERY NIGHT AT BEDTIME 120 capsule 2 04/07/2024 05/13/2024 Discontinued (Therapy completed) lisinopril 5 mg oral tablet (8 sources) Angiotensin Converting Enzyme Inhibitor Start: 01-18-2024 End: 01-21-2024 take 1 tablet by mouth once daily Lisinopril 5 mg tablet Discontinued 5 MG PO Daily January 18, 2024 12:00am January 21, 2024 1:28pm meloxicam 15 mg oral tablet (20 sources) Nonsteroidal Anti-inflammatory Drug Start: 04-22-2020 End: 04-28-2020 take 1 tablet by mouth once daily Meloxicam 15 mg tablet Discontinued 15 MG PO Daily April 22, 2020 12:00am April 28, 2020 8:30am Zlldwlwo-Dip-Klvw c-Vit K-Lycop (Men's Multivitamin) 400-20-300 mcg Tablet (18 sources) Start: 04-22-2020 End: 02-26-2023 take 1 tablet by mouth once daily Zvzanhko-Tdy-Zkkcd- Vit K-Lycop (Men's Multivitamin) 400-20-300 mcg Tablet Discontinued 1 TAB PO Daily April 21, 2020 11:00pm February 26, 2023 7:03am Start: 04-22-2020 End: 02-26-2023 take 1 tablet by mouth once daily Wymamdhj-Egc-Jnrld-Vit K-Lycop (Men's Multivitamin) 400-20-300 mcg Tablet Discontinued 1 TAB PO Daily April 22, 2020 12:00am February 26, 2023 8:03am Multivitamin Tablet (3 sources) Start: 02-26-2023 End: 09-21-2023 take 1 tablet by mouth once daily Multivitamin Tablet Discontinued 1 TAB PO Daily February 26, 2023 12:00am September 21, 2023 3:15pm Start: 02-26-2023 End: 09-21-2023 take 1 tablet by mouth once daily Multivitamin Tablet Discontinued 1 TAB PO Daily February 25, 2023 11:00pm September 21, 2023 2:15pm oxyCODONE hydrochloride 5 mg oral tablet (20 sources) Opioid Agonist Start: 11-14-2023 End: 11-28-2023 take 5-10 mg by mouth every six hours as needed for pain Oxycodone 5 mg tablet Discontinued 5 - 10 MG PO Q6H as needed for Pain 40 8 November 14, 2023 November 28, 2023 11:18pm Start: 04-28-2020 End: 02-26-2023 take 1 tablet by mouth every four to six hours as needed for pain Oxycodone 5 mg Tablet Discontinued 5 MG PO EVERY 4-6 HOURS as needed for Pain Scale 1 - 5 70 14 April 28, 2020 February 26, 2023 8:03am polysaccharide iron complex 150 mg oral capsule (14 sources) Start: 12-01-2023 End: 05-29-2024 Polysaccharide Iron Complex 150 mg iron capsule Discontinued 150 MG PO Every 48 hours December 01, 2023 12:00am May 29, 2024 9:24am [place] (20 sources) Start: 09-26-2023 End: 05-29-2024 take 1 capsule by mouth twice daily at mealtime [place] 450 mg capsule Discontinued 450 MG PO Twice daily September 26, 2023 1:00am May 29, 2024 9:24am give with food (meal/snack) Start: 09-26-2023 End: 05-29-2024 take 1 capsule by mouth twice daily at mealtime [place] 450 mg capsule Discontinued 450 MG PO Twice daily September 26, 2023 12:00am May 29, 2024 8:24am give with food (meal/snack) Start: 09-26-2023 take 450 mg by mouth twice daily at mealtime [place] Active 450 MG PO Twice daily September 26, 2023 1:00am give with food (meal/snack) Start: 02-26-2023 End: 09-21-2023 take 1 capsule by mouth twice daily at mealtime [place] 450 mg Capsule Discontinued 450 MG PO Twice daily February 26, 2023 12:00am September 21, 2023 3:15pm give with food (meal/snack) Start: 02-26-2023 End: 09-21-2023 take 1 capsule by mouth twice daily at mealtime [place] 450 mg Capsule Discontinued 450 MG PO Twice daily February 25, 2023 11:00pm September 21, 2023 2:15pm give with food (meal/snack) Start: 02-26-2023 End: 09-21-2023 take 450 mg by mouth twice daily at mealtime [place] Discontinued 450 MG PO Twice daily February 26, 2023 12:00am September 21, 2023 3:15pm give with food (meal/snack) Start: 02-26-2023 take 450 mg by mouth twice daily at mealtime [place] Active 450 MG PO Twice daily February 26, 2023 12:00am give with food (meal/snack) sulfamethoxazole 800 mg / trimethoprim 160 mg oral tablet (20 sources) Dihydrofolate Reductase Inhibitor Antibacterial, Sulfonamide Antimicrobial Start: 09-21-2023 End: 09-26-2023 take 1 tablet by mouth twice daily Sulfamethoxazole-Trimethoprim (Bactrim Ds) 800-160 mg tablet Discontinued 1 TAB PO Twice daily September 21, 2023 1:00am September 26, 2023 11:11am Start: 03-07-2023 take 1 tablet by galdino th every twelve hours Bactrim DS 800-160 MG 1 tablet Orally Twice a day for 14 days Feb, Active Problems Active Problems Problem Classification Problem Date Documented Date Episodic/Chronic Acquired foot deformities (20 sources) Foot-drop; Translations: [Foot drop, left foot] Onset: 4 10-10-2023 Episodic Acute bronchitis (8 sources) Acute bronchitis due to other specified organisms; Translations: [Acute bronchitis] Episodic Acute posthemorrhagic anemia (16 sources) Acute posthemorrhagic anemia; Translations: [Acute posthemorrhagic anemia] Onset: 4 12-05-2023 Episodic Cardiac dysrhythmias (20 sources) Unspecified [...] nonvenomous arthropods, initial encounter Episodic Esophageal disorders (20 sources) Gastro-esophageal reflux disease with esophagitis; Translations: [Gastroesophageal reflux disease with esophagitis without hemorrhage] Onset: 4 09-21-2023 Chronic Esophageal disorders (5 sources) Achalasia of esophagus; Translations: [Achalasia of cardia] 05-18-2024 Episodic Essential hypertension (20 sources) Essential hypertension; Translations: [Essential (primary) hypertension] Onset: 4 Chronic Fluid and electrolyte disorders (1 source) Dehydration Episodic Gastritis and duodenitis (1 source) Acute gastritis with bleeding Episodic Gastrointestinal hemorrhage (20 sources) Acute lower gastrointestinal hemorrhage; Translations: [Gastrointestinal hemorrhage, unspecified] Onset: 4 11-28-2023 Episodic Hyperplasia of prostate (20 sources) Benign prostatic hypertrophy with outflow obstruction; Translations: [Benign prostatic hyperplasia with lower urinary tract symptoms] Onset: 2 Chronic Comment on above: pt refusing [facility]iley pr esently Hypertension with complications and secondary hypertension (12 [...] of head without foreign body] Episodic Osteoarthritis (20 sources) Primary osteoarthritis, right shoulder; Translations: [Localized, primary osteoarthritis of the shoulder region] Onset: 4 03-27-2024 Chronic Other acquired deformities (16 sources) Spondylolisthesis; Translations: [Spondylolisthesis, cervical region] Episodic Other acquired deformities (9 sources) Lumbar spondylolisthesis; Translations: [Spondylolisthesis, lumbar region] 10-10-2023 Episodic Other aftercare (3 sources) 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; Translations: [OTH LONG-TERM CURRENT DRUG THERAPY] Onset: 2 Episodic Other aftercare (6 sources) Long-term current use of drug therapy; Translations: [Other jail (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] Episodic Other aftercare (1 source) Drug therapy finding; Translations: [roasterman (current) use of opiate analgesic] 08-25-2024 Episodic Other aftercare (1 source) roasterman (current) use of opiate analgesic; Translations: [Long-term (current) use of other medications] 08-25-2024 Episodic Other gastrointestinal disorders (3 sources) Dysphagia, pharyngoesophageal phase; Translations: [Dysphagia, pharyngoesophageal phase] Episodic Other gastrointestinal disorders (5 sources) Pharyngeal dysphagia; Translations: [Dysphagia, pharyngoesophageal phase] Episodic Other gastrointestinal disorders (9 sources) Dysphagia; Translations: [Dysphagia, unspecified] Onset: 4 04-24-2024 Episodic Other gastrointestinal disorders (2 sources) Esophageal dysphagia; Translations: [Other dysphagia] 05-18-2024 Episodic Other gastrointestinal disorders (2 sources) Other dysphagia; Translations: [Other dysphagia] 05-21-2024 Episodic Other gastrointestinal disorders (1 source) Dysphagia, unspecified; Translations: [Dysphagia, unspecified] Onset: 4 Episodic Other hereditary and degenerative nervous system [...] neuropathy; Translations: [Hereditary and idiopathic neuropathy, unspecified] Onset: 4 10-18-2023 Chronic Other nervous system disorders (4 [...] Translations: [Carpal tunnel syndrome, unspecified upper limb] Onset: 4 09-26-2023 Chronic Other nervous system disorders (16 [...] right shoulder] Episodic Other non-traumatic joint disorders (17 sources) Pain in left shoulder; Translations: [Left shoulder pain] Onset: 4 03-27-2024 Episodic Other nutritional; endocrine; and metabolic [...] and visceral atherosclerosis (20 sources) Atherosclerosis of [place] arteries of extremities with intermittent claudication, left leg; Translations: [Intermittent claudication of left lower limb co-occurrent and due to atherosclerosis] Onset: 4 09-21-2023 Chronic Residual codes; unclassified (11 sources) Edema of lower extremity; Translations: [Localized edema] Onset: 4 03-28-2024 Episodic Residual codes; unclassified (5 sources) Localized edema; Translations: [Edema] 03-28-2024 Episodic Screening and history of mental health and substance abuse codes (2 sources) Encounter for screening for depression; Translations: [Encounter for screening for depression] Episodic Spondylosis; intervertebral disc disorders; other back problems (20 sources) Cervical spondylosis with myelopathy; Translations: [Other spondylosis with myelopathy, cervical region] Onset: 7 Resolved: 2 Chronic Comment on above: Problem List clean-u p per request of Phys. EHR Cmte Spondylosis; intervertebral disc disorders; other back problems (20 sources) Spinal stenosis, lumbar region with neurogenic claudication; Translations: [Sciatica, left side] Onset: 7 Resolved: 2 Episodic Substance-related disorders (8 sources) Nicotine dependence, cigarettes, in remission; Translations: [Tobacco user] Chronic Superficial injury; contusion (1 source) Insect bite (nonvenomous), right lower leg, initial encounter Episodic Unclassified (3 sources) Low back pain, unspecified; Translations: [Low back pain, unspecified] Onset: 7 Unclassified (1 source) Bladder Problem Onset: 4 Past or Other Problems Problem Classification Problem Date Documented Da te Episodic/Chronic Abdominal pain (3 sources) Abdominal pain; Translations: [Unspecified abdominal pain] Onset: 04-14-2024 12-06-2023 Episodic Esophageal disorders (1 source) Esophageal disorders Genitourinary symptoms and ill-defined conditions (20 sources) Other retention of urine; Translations: [Finding of sensation of bladder] Onset: 08-25-2022 Episodic Malaise and fatigue (8 sources) Chronic fatigue, unspecified; Translations: [Chronic fatigue syndrome] Resolved: 05-05-2020 Chronic Neoplasms of unspecified nature or uncertain behavior (8 sources) Neoplasm of uncertain behavior of skin; Translations: [Neoplasm of uncertain behavior of skin] Resolved: 03-24-2021 Episodic Other acquired deformities (9 sources) Spondylolisthesis, lumbar region; Translations: [Acquired spondylolisthesis] Onset: 10-11-2023 10-10-2023 Episodic Other gastrointestinal disorders (2 sources) [...] ABNORMALITIES GAIT AND MOBILITY] Onset: 01-03-2022 Episodic Other screening for suspected conditions (not mental disorders or infectious disease) (20 sources) Elevated prostate specific antigen [PSA]; Translations: [Raised prostate specific antigen] Onset: 05-01-2016 Resolved: 05-05-2020 Episodic Residual codes; unclassified (1 source) Pain, unspecified; Translations: [Pain, unspecified] Onset: 04-18-2024 Episodic Sprains and strains (8 sources) Sprain of left rotator cuff capsule, subsequent encounter; Translations: [Sprain of left rotator cuff capsule] Resolved: 03-24-2021 Episodic Results Test Name Value Interpretation Reference Range Facility Basophils Auto (Bld) [#/Vol] on 08-25-2024 Basophils (Bld) [#/Vol] Automated basophil count 0.0-0.1 [facility] Basophils/100 WBC Auto (Bld) on 08-25-2024 Basophils/100 WBC (Bld) Automated basophil % 0.2-2.0 [facility] Eosinophils/100 WBC Auto (Bl d)on 08-25-2024 Eosinophils/100 WBC (Bld) Automated eosinophil % 0.9-7.0 [facility] Erythrocyte distribution wid th Auto (RBC) [Ratio]on 08-25-2024 Erythrocyte distribution width (RBC) [Ratio] Erythrocyte distribution width [Ratio] by Automated count 11.0-15.0 [facility] Estimated glomerular filtrat ion rate (GFR) non- Americanon 08-25-2024 GFR/1.73 sq M.predicted among non-blacks MDRD (S/P/Bld) [Vol rate/Area] Estimated glomerular filtration rate (GFR) non- >=60 mL/min/1.73 m 2 [facility] Globulin Calc (S) [Mass/Vol] on 08-25-2024 Globulin (S) [Mass/Vol] Serum globulin measurement by calculation (mass/volume) [facility] Hematocrit Auto (Bld) [Volum e fraction]on 08-25-2024 Hematocrit (Bld) [Volume fraction] Hematocrit [Volume Fraction] of Blood by Automated count Low 42.0-54.0 [facility] Hemoglobin [Mass/volume] in Bloodon 08-25-2024 Hemoglobin (Bld) [Mass/Vol] Hemoglobin [Mass/volume] in Blood Low 14.0-18.0 [facility] Laboratory - Chemistry and C hemistry - challengeon 08-25-2024 Albumin [Mass/Vol] 3.5 g/dL 3.4-5.0 [facility] ALP [Catalytic activity/Vol] 170 U/L High 46-116 [facility] ALT [Catalytic activity/Vol] 21 U/L 16-63 [facility] AST [Catalytic activity/Vol] 22 U/L 15-37 [facility] Bilirubin [Mass/Vol] 0.6 mg/dL 0.2-1.0 [facility] Calcium [Mass/Vol] 9.4 mg/dL 8.5-10.1 [facility] Chloride [Moles/Vol] 98 mmol/L 98-107 [facility] CO2 [Moles/Vol] 36.5 mmol/L High 21.0-32.0 [facility] Creatinine [Mass/Vol] 1.02 mg/dL 0.70-1.30 [facility] GFR/1.73 sq M.predicted MDRD (S/P/Bld) [Vol rate/Area] mL/min/{1.73_m2} >=60 mL/min/1.73 m 2 [facility] Glucose [Mass/Vol] 97 mg/dL 74-106 [facility] Potassium [Moles/Vol] 3.8 mmol/L 3.5-5.1 [facility] Protein [Mass/Vol] 6.9 g/dL 6.4-8.2 [facility] Sodium [Moles/Vol] 139 mmol/L 136-145 [facility] Urea nitrogen [Mass/Vol] 19.0 mg/dL High 7.0-18.0 [facility] Urea nitrogen/Creatinine [Mass ratio] 18.6 mg/mg [facility] Laboratory - Hematology and Cell countson 08-25-2024 Immature granulocytes/100 WBC (Bld) 0.3 % 0.0-0.5 [facility] Leukocytes [#/volume] correc bekah for nucleated erythrocytes in Blood by Automated counon 08-25-2024 WBC corrected for nucl RBC Auto (Bld) [#/Vol] Leukocytes [#/volume] corrected for nucleated erythrocytes in Blood by Automated coun 4.0-11.0 [facility] Lymphocytes Auto (Bld) [#/Vo l]on 08-25-2024 Lymphocytes (Bld) [#/Vol] Lymphocytes [#/volume] in Blood by Automated count 1.2-3.8 [facility] Lymphocytes/100 WBC Auto (Bl d)on 08-25-2024 Lymphocytes/100 WBC (Bld) Lymphocytes/100 leukocytes in Blood by Automated count Low 20.5-60.0 [facility] MCH Auto (RBC) [Entitic mass ]on 08-25-2024 MCH (RBC) [Entitic mass] MCH [Entitic mass] by Automated count 25.9-34.0 [facility] MCHC Auto (RBC) [Mass/Vol]on 08-25-2024 MCHC (RBC) [Mass/Vol] MCHC [Mass/volume] by Automated count 29.9-35.2 [facility] MCV Auto (RBC) [Entitic vol] on 08-25-2024 MCV (RBC) [Entitic vol] MCV [Entitic volume] by Automated count High 80.0-94.0 [facility] Monocytes Auto (Bld) [#/Vol] on 08-25-2024 Monocytes (Bld) [#/Vol] Automated blood monocyte count 0.3-0.8 [facility] Monocytes/100 WBC Auto (Bld) on 08-25-2024 Monocytes/100 WBC (Bld) Automated monocyte % 1.7-12.0 [facility] Neutrophils Auto (Bld) [#/Vo l]on 08-25-2024 Neutrophils (Bld) [#/Vol] Neutrophils [#/volume] in Blood by Automated count 1.4-6.5 [facility] Neutrophils/100 WBC Auto (Bl d)on 08-25-2024 Neutrophils/100 WBC (Bld) Automated neutrophil % 43.0-75.0 [facility] No Panel Informationon 08-25 Eosinophils # (Auto) 0.2 10 3/uL 0.0-0.7 [facility] Immature Granulocyte # (Auto) 0.02 10 3/uL 0.00-0.03 [facility] Platelet mean volume Auto (B ld) [Entitic vol]on 08-25-2024 Platelet mean volume (Bld) [Entitic vol] Platelet mean volume [Entitic volume] in Blood by Automated count 9.5-13.5 [facility] Platelets Auto (Bld) [#/Vol] on 08-25-2024 Platelets (Bld) [#/Vol] Platelets [#/volume] in Blood by Automated count 150-450 [facility] RBC Auto (Bld) [#/Vol]on RBC (Bld) [#/Vol] Erythrocytes [#/volu me] in Blood by Automated count Low 4.70-6.10 [facility] Serum or plasma albumin/glob ulin mass ratioon 08-25-2024 Albumin/Globulin [Mass ratio] Serum or plasma albumin/globulin mass ratio [facility] Serum or plasma anion gap de terminationon 08-25-2024 Anion gap [Moles/Vol] Serum or plasma an ion gap determination [facility] Prostate specific Ag [Mass/V ol]on 06-18-2024 PROSTATIC SPEC ANT 9.30 ng/mL High 0.00-4.00 [facility] Comment on above: Result Comment: The method used for this test is Tania Tony DXI chemiluminescent immunoassay. Values obtained by different assay methods cannot be used interchangeably. Performed By: #### 2 [id number] #### [facility] ([id number]) [address], [address] [place] [address] Pathology study report docum entOrdered By: Ronal Nesbitt on 06-13-2024 Pathology study [facility] Other Phone: Bradley 06-12-2024 L ------ Specimen: [id number] Received: 06/12/24 Status: RONALD Peralta Num: [id number] Spec Type: Surgical Subm Dr: Gene Nguyễn MD Tissues: A GASTRIC FOR HP (GASTRIC BX'S R/O H PYLORI) Procedures: HE/2, Gross/Micro L4, H PYLORI Age/ Patient Sex Location Account Attending Physician Rishi Babcock /[facility] [id number] Gene Nguyễn MD SPEC NUM: [id number] RECD: 06/12/24 STATUS: RONALD VALENTE NUM: [id number] LYNNE: 06/12/[address] [facility] [address]: Gene Nguyễn MD ENTERED: 06/12/[address]: CORNELIO TYPE: Surgical DEPT: S ENTERED BY: [id number] RECV BY: [id number] ORDERED: HE/2, Gross/Micro L4, H PYLORI ORDERED: HE/2, Gross/Micro L4, H PYLORI Pathological Diagnosis Stomach, biopsy: - Antral and oxyntic-type 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 - No Helicobacter pylori microorganisms identified with immunohistochemical stain. Clinical Information Dysplasia. Rule out H. pylori Gross Description Received in formalin labeled with the patients name, date of , and gastric BX are three schmitt-ohwell, focally erythematous, friable, 0.2, 0.4, and 0.7 cm tissue fragments. The specimen is entirely submitted in a single cassette. (1, ns, [id number]) LUKASZ Microscopic Description Microscopic examination is performed. CPT Codes 97086, 80021 Specimen: [id number] Received: 06/12/24 Status: RONADL Peralta Num: [id number] Spec Type: Surgical Subm Dr: Gene Nguyễn MD Tissues: A GASTRIC FOR HP (GASTRIC BX'S R/O H PYLORI) Procedures: HE/2, Gross/Micro L4, H PYLORI Patient: Rishi Babcock [id number] (Continued) Signed (signature on file) Ronal Nesbitt MD 06/13/24 1359 Normal [facility] Appearance of UrineOrdered B y: PROVIDER TEMP on 04-14-2024 Appearance (U) Urine appearance Abnormal Clear [facility] Automated basophil %Ordered By: PROVIDER TEMP on 04-14-2024 Basophils/100 WBC (Bld) 0.2 % Normal . [facility] Comment on above: Performed By: #### B MP, CBC ####[place] [id number] [address] Automated basophil countOrde red By: PROVIDER TEMP on 04-14-2024 Basophils (Bld) [#/Vol] 0.0 10*3/uL Normal 0.0-0.2 [facility] Comment on above: Result Comment: PERF ORMED BY: [facility] [address] [place] [address] PATHOLOGIST [employer] JAMISON ANDINO M.D. Performed By: #### B MP, CBC ####[address] Automated blood monocyte cou ntOrdered By: PROVIDER TEMP on 04-14-2024 Monocytes (Bld) [#/Vol] 0.9 10*3/uL High 0.0-0.8 [facility] Comment on above: Performed By: #### B MP, CBC ####[address] Automated eosinophil %Ordere d By: PROVIDER TEMP on 04-14-2024 Eosinophils/100 WBC (Bld) 0.1 % Normal . [facility] Comment on above: Performed By: #### B MP, CBC ####[address] Automated eosinophil countOr dered By: PROVIDER TEMP on 04-14-2024 Eosinophils (Bld) [#/Vol] 0.0 10*3/uL Normal 0.0-0.45 [facility] Comment on above: Performed By: #### B MP, CBC ####[place] [id number] [facility] Automated monocyte %Ordered By: PROVIDER TEMP on 04-14-2024 Monocytes/100 WBC (Bld) 7.0 % Normal . [facility] Comment on above: Performed By: #### B MP, CBC ####[place] [id number] [address] Automated neutrophil %Ordere d By: PROVIDER TEMP on 04-14-2024 Neutrophils/100 WBC (Bld) 86.5 % Normal . [facility] Comment on above: Performed By: #### B MP, CBC ####[place] [id number] [place] [id number] [facility] Bacteria [Presence] in Urine by AutomatedOrdered By: PROVIDER TEMP on 04-14-2024 Bacteria Auto Ql (U) None seen [HPF] None Seen [facility] Bacteria Auto Ql (U) Bacteria [Presence] in Urine by Automated None Seen [facility] Basic Metabolic Panelon 03-30 Creatinine Clr Calc Pharmacy 52.92 Normal [facility] Comment on above: Result Comment: PERF ORMED BY: [facility] [address] [place] [id number] PATHOLOGIST [employer] JAMISON ANDINO M.D. Performed By: #### B MP, CBC ####[place] [id number] [place] [phone] [facility] GFR/1.73 sq M.predicted MDRD (S/P/Bld) [Vol rate/Area] mL/min/{1.73_m2} Normal [facility] Comment on above: Performed By: #### B MP, CBC ####[place] [id number] [place] [phone] [facility] Basophils Auto (Bld) [#/Vol] Ordered By: PROVIDER TEMP on 04-14-2024 Basophils (Bld) [#/Vol] Automated basophil count 0.0-0.2 [facility] Basophils/100 WBC Auto (Bld) Ordered By: PROVIDER TEMP on 04-14-2024 Basophils/100 WBC (Bld) Automated basophil % . [facility] Bilirubin Test strip Ql (U)O rdered By: PROVIDER TEMP on 04-14-2024 Bilirubin Ql (U) Negative Negative [facility] Bilirubin Ql (U) Bilirubin.total [Pre sence] in Urine by Test strip Negative [facility] CT abdomen pelvis wo conon 0 04-14-2024 CT abdomen pelvis wo con [facility] Main [place] [address] [place], [place] [id number] CT Scan Report Signed Patient: Rishi Babcock MR#: [id number] : 1940 Acct:[id number] Age/Sex: 83 / M ADM Date: 04/14/24 Loc: ER Room: Type: [facility] ER Attending Dr: Copies to: Nhan [...] nondilated. Moderate stool burden. Left colon diverticulosis.[ Pelvis:[Wiley catheter is in place. There appears be [...] Zamora Jr., D.O.04/14/2024 5:25 PM Dictation Location: [facility]15 Transcribed By: [facility] 04/14/24 172 Dictated By: Sanchez Zamora Jr, DO 04/14/24 172 Signed By: 04/14/24 172 Normal [facility] Calcium [Mass/volume] in Ser um or PlasmaOrdered By: Nhan Ramirez on 04-14-2024 Calcium [Mass/Vol] 9.9 mg/dL Normal 8.6-10.3 [facility] Comment on above: Performed By: #### B SINDY, CBC ####[place] [id number] [facility] Calcium [Mass/Vol] Calcium [Mass/volume ] in Serum or Plasma 8.6-10.3 [facility] Carbon dioxide, total [Moles /volume] in Serum or PlasmaOrdered By: Nhan Ramirez on 04-14-2024 CO2 [Moles/Vol] 35.1 mmol/L High 21.0-31.0 [facility] Comment on above: Performed By: #### B MP, CBC ####[place] [id number] [facility] CO2 [Moles/Vol] Carbon dioxide, tota l [Moles/volume] in Serum or Plasma High 21.0-31.0 [facility] Chloride [Moles/volume] in S jose or PlasmaOrdered By: Nhan Ramirez on 04-14-2024 Chloride [Moles/Vol] 93 mmol/L Low 98-107 [facility] Comment on above: Performed By: #### B MP, CBC ####[facility] [address] [place] [address] [facility] Chloride [Moles/Vol] Chloride [Moles/vol ume] in Serum or Plasma Low 98-107 [facility] Color Auto (U)Ordered By: JOCELYN MCMAHAN TEMP on 04-14-2024 Color (U) Color of Urine by Auto Abnormal Yellow [facility] Color of Urine by AutoOrdere d By: JUANCHO TEMP on 04-14-2024 Color (U) Light-orange Critically abnormal Yellow [facility] Comment on above: Order Comment: Name Collection Type:: Wiley Catheter Performed By: #### C UU, ADDONUAPLUS #### [facility] [address] Complete Blood Count Auto Di ffon 04-14-2024 Mean Corpuscular HGB Conc 33.9 g/dL Normal 32.5-35.6 [facility] Comment on above: Performed By: #### B MP, CBC ####[place] [id number] [address] Monocytes/100 WBC (Bld) 21.04 % High 0.00-20.00 [facility] Comment on above: Result Comment: For adults in ED, MDW > 20.0 may be associated with a higher risk of sepsis during the first 12 hrs of hospital admission Performed By: #### B MP, CBC ####[place] [id number] [address] NRBC% 0.0 /100{WBC} Normal 0-0.5 [facility] Comment on above: Performed By: #### B MP, CBC ####[place] [id number] [address] Creatinine [Mass/volume] in Serum or PlasmaOrdered By: Nhan Ramirez on 04-14-2024 Creatinine [Mass/Vol] 0.90 mg/dL Normal 0.70-1.30 [facility] Comment on above: Performed By: #### B MP, CBC ####[address] Creatinine [Mass/Vol] Creatinine [Mass/v olume] in Serum or Plasma 0.70-1.30 [facility] Dipstick and Microscopicon 0 04-14-2024 Bacteria,Urine None Seen Normal None Seen [facility] Comment on above: Order Comment: Name Collection Type:: Wiley Catheter Performed By: #### C UU, ADDONUAPLUS #### [address] Bilirubin,Urine Negative Normal Negative [facility] Comment on above: Order Comment: Name Collection Type:: Wiley Catheter Performed By: #### C UU, ADDONUAPLUS #### [address] Glucose Ql (U) Normal Normal Normal [facility] Comment on above: Order Comment: Name Collection Type:: Wiley Catheter Performed By: #### C UU, ADDONUAPLUS #### [address] Hyaline Casts,Urine None Normal 0-8 [facility] Comment on above: Order Comment: Name Collection Type:: Wiley Catheter Performed By: #### C UU, ADDONUAPLUS #### [address] Mucus,Urine 2+ Critically abnormal [facility] Comment on above: Order Comment: Name Collection Type:: Wiley Catheter Result Comment: PERF ORMED BY: [place] [address] PATHOLOGIST [employer] JAMISON ANDINO M.D. Performed By: #### C UU, ADDONUAPLUS #### [address] Nitrite,Urine Negative Normal Negative [facility] Comment on above: Order Comment: Name Collection Type:: Wiley Catheter Performed By: #### C UU, ADDONUAPLUS #### [address] Occult Blood,Urine Normal Negative [facility] Comment on above: Order Comment: Name Collection Type:: Wiley Catheter Result Comment: Unab le to obtain accurate result due to color interference. Performed By: #### C UU, ADDONUAPLUS #### [address] RBC,Urine Innumerable High 0-4 [facility] Comment on above: Order Comment: Name Collection Type:: Wiley Catheter Performed By: #### C UU, ADDONUAPLUS #### [facility] [address] [place] [address] Specificy [place],Urine 1.024 Normal 1.001-1.030 [facility] Comment on above: Order Comment: Name Collection Type:: Wiley Catheter Performed By: #### C UU, ADDONUAPLUS #### [address] Squamous Epithelial Cell,Urine 1-2 Normal 0-2 [facility] Comment on above: Order Comment: Name Collection Type:: Wiley Catheter Performed By: #### C UU, ADDONUAPLUS #### [address] Urobilinogen,Urine 2 mg/dL High Normal [facility] Comment on above: Order Comment: Name Collection Type:: Wiley Catheter Performed By: #### C UU, ADDONUAPLUS #### [address] WBC,Urine 10-19 High 0-4 [facility] Comment on above: Order Comment: Name Collection Type:: Wiley Catheter Performed By: #### C UU, ADDONUAPLUS #### [address] Eosinophils Auto (Bld) [#/Vo l]Ordered By: PROVIDER TEMP on 04-14-2024 Eosinophils (Bld) [#/Vol] Automated eosinophil count 0.0-0.[address] [facility] Eosinophils/100 WBC Auto (Bl d)Ordered By: PROVIDER TEMP on 04-14-2024 Eosinophils/100 WBC (Bld) Automated eosinophil % . [facility] Epithelial cells.squamous [# /area] in Urine sediment by Automated countOrdered By: PROVIDER TEMP on 04-14-2024 Epithelial cells.squamous Auto (Urine sed) [#/Area] 1-2 [HPF] 0-2 [facility] Epithelial cells.squamous Auto (Urine sed) [#/Area] Epithelial cells.squamous [#/area] in Urine sediment by Automated count 0-2 [facility] Erythrocyte distribution wid th Auto (RBC) [Ratio]Ordered By: PROVIDER TEMP on 04-14-2024 Erythrocyte distribution width (RBC) [Ratio] Erythrocyte distribution width [Ratio] by Automated count High 12.0-14.8 [facility] Erythrocyte distribution wid th [Ratio] by Automated countOrdered By: PROVIDER TEMP on 04-14-2024 Erythrocyte distribution width (RBC) [Ratio] 15.6 % High 12.0-14.8 [facility] Comment on above: Performed By: #### B MP, CBC ####[facility] [id number] [place] [address] [facility] Erythrocytes [#/area] in Uri ne sediment by Automated countOrdered By: PROVIDER TEMP on 04-14-2024 RBC Auto (Urine sed) [#/Area] Innumerable [HPF] High 0-4 [facility] RBC Auto (Urine sed) [#/Area] Erythrocytes [#/area] in Urine sediment by Automated count High 0-4 [facility] Erythrocytes [#/volume] in B lood by Automated countOrdered By: PROVIDER TEMP on 04-14-2024 RBC (Bld) [#/Vol] 4.50 10*6/uL Normal 3.90-5.[address] [facility] Comment on above: Performed By: #### B MP, CBC ####[facility] [address] [place] [address] [facility] Glucose [Mass/volume] in Ser um or PlasmaOrdered By: Nhan Ramirez on 04-14-2024 Glucose [Mass/Vol] 101 mg/dL High 70-100 [facility] Comment on above: ADA recommended refe rence rangeRandom Glucose Reference Range is dependent on time and content of last meal. Glucose of more than 200 mg/dL in a nonstressed, ambulatory subject supports the diagnosis of Diabetes Mellitus. Result Comment: [place] om Glucose Reference Range is dependent on time and content of last meal. Glucose of more than 200 mg/dL in a nonstressed, ambulatory subject supports the diagnosis of Diabetes Mellitus. ADA recommended reference range Performed By: #### B MP, CBC ####[facility] [place] [id number] [facility] Glucose [Mass/Vol] Glucose [Mass/volume ] in Serum or Plasma High 70-100 [facility] Comment on above: ADA recommended refe rence rangeRandom Glucose Reference Range is dependent on time and content of last meal. Glucose of more than 200 mg/dL in a nonstressed, ambulatory subject supports the diagnosis of Diabetes Mellitus. Glucose [Mass/volume] in Uri ne by Test stripOrdered By: PROVIDER TEMP on 04-14-2024 Glucose Test strip (U) [Mass/Vol] Normal mg/dL Normal [facility] Glucose Test strip (U) [Mass/Vol] Glucose [Mass/volume] in Urine by Test strip Normal [facility] Hematocrit Auto (Bld) [Volum e fraction]Ordered By: PROVIDER TEMP on 04-14-2024 Hematocrit (Bld) [Volume fraction] Hematocrit [Volume Fraction] of Blood by Automated count 38.8-50.0 [facility] Hematocrit [Volume Fraction] of Blood by Automated countOrdered By: PROVIDER TEMP on 04-14-2024 Hematocrit (Bld) [Volume fraction] 41.0 % Normal 38.8-50.0 [facility] Comment on above: Performed By: #### B MP, CBC ####[place] [id number] [place] [id number] [facility] Hemoglobin Test strip Ql (U) Ordered By: PROVIDER TEMP on 04-14-2024 Hemoglobin Ql (U) See comment Negative [facility] Comment on above: Unable to obtain acc urate result due to color interference. Hemoglobin Ql (U) Hemoglobin [Presence ] in Urine by Test strip Negative [facility] Comment on above: Unable to obtain acc urate result due to color interference. Hemoglobin [Mass/volume] in BloodOrdered By: PROVIDER TEMP on 04-14-2024 Hemoglobin (Bld) [Mass/Vol] 13.9 g/dL Normal 13.0-17.0 [facility] Comment on above: Performed By: #### B MP, CBC ####[place] [id number] [place] [id number] [facility] Hemoglobin (Bld) [Mass/Vol] Hemoglobin [Mass/volume] in Blood 13.0-17.0 [facility] Hyaline casts [#/area] in Ur ine sediment by Automated countOrdered By: PROVIDER TEMP on 04-14-2024 Hyaline casts Auto (Urine sed) [#/Area] None [LPF] 0-8 [facility] Hyaline casts Auto (Urine sed) [#/Area] Hyaline casts [#/area] in Urine sediment by Automated count 0-8 [facility] Ketones Test strip Ql (U)Ord ered By: PROVIDER TEMP on 04-14-2024 Ketones Ql (U) Ketones [Presence] i n Urine by Test strip High Negative [facility] Ketones [Presence] in Urine by Test stripOrdered By: PROVIDER TEMP on 04-14-2024 Ketones Ql (U) Trace High Negative [facility] Comment on above: Order Comment: Name Collection Type:: Wiley Catheter Performed By: #### C UU, ADDONUAPLUS #### [facility] [address] [place] [address] [place] Leukocyte esterase [Presence ] in Urine by Test stripOrdered By: PROVIDER TEMP on 04-14-2024 Leukocyte esterase Test strip Ql (U) 4+ [facility] Negative [facility] Comment on above: Order Comment: Name Collection Type:: Wiley Catheter Performed By: #### C UU, ADDONUAPLUS #### [facility] [address] [place] [address] Leukocyte esterase Test strip Ql (U) Leukocyte esterase [Presence] in Urine by Test strip High Negative [facility] Leukocytes [#/area] in Urine sediment by Automated countOrdered By: PROVIDER TEMP on 04-14-2024 WBC Auto (Urine sed) [#/Area] 10-19 [HPF] High 0-4 [facility] WBC Auto (Urine sed) [#/Area] Leukocytes [#/area] in Urine sediment by Automated count High 0-4 [facility] Leukocytes [#/volume] correc bekah for nucleated erythrocytes in Blood by Automated counOrdered By: PROVIDER TEMP on 04-14-2024 WBC corrected for nucl RBC Auto (Bld) [#/Vol] 13.5 10*3/uL High 4.1-10.5 [facility] WBC corrected for nucl RBC Auto (Bld) [#/Vol] Leukocytes [#/volume] corrected for nucleated erythrocytes in Blood by Automated coun High 4.1-10.5 [facility] Leukocytes [#/volume] in Blo od by Automated countOrdered By: PROVIDER TEMP on 04-14-2024 WBC (Bld) [#/Vol] 13.5 10*3/uL High 4.1-10.[address] [facility] Comment on above: Performed By: #### B MP, CBC ####[facility] [id number] [address] Lymphocytes Auto (Bld) [#/Vo l]Ordered By: PROVIDER TEMP on 04-14-2024 Lymphocytes (Bld) [#/Vol] Lymphocytes [#/volume] in Blood by Automated count Low 1.00-4.8 [facility] Lymphocytes [#/volume] in Bl ood by Automated countOrdered By: PROVIDER TEMP on 04-14-2024 Lymphocytes (Bld) [#/Vol] 0.8 10*3/uL Low 1.00-4.8 [facility] Comment on above: Performed By: #### B MP, CBC ####[facility] [id number] [place] [address] Lymphocytes/100 WBC Auto (Bl d)Ordered By: PROVIDER TEMP on 04-14-2024 Lymphocytes/100 WBC (Bld) Lymphocytes/100 leukocytes in Blood by Automated count . [facility] Lymphocytes/100 leukocytes i n Blood by Automated countOrdered By: PROVIDER TEMP on 04-14-2024 Lymphocytes/100 WBC (Bld) 6.2 % Normal . [facility] Comment on above: Performed By: #### B MP, CBC ####[facility] [id number] [place] [address] MCH Auto (RBC) [Entitic mass ]Ordered By: PROVIDER TEMP on 04-14-2024 MCH (RBC) [Entitic mass] MCH [Entitic mass] by Automated count 27.5-35.2 [facility] MCH [Entitic mass] by Automa bekah countOrdered By: PROVIDER TEMP on 04-14-2024 MCH (RBC) [Entitic mass] 30.9 pg Normal 27.5-35.2 [facility] Comment on above: Performed By: #### B MP, CBC ####[facility] [id number] MCHC Auto (RBC) [Mass/Vol]Or dered By: PROVIDER TEMP on 04-14-2024 MCHC (RBC) [Mass/Vol] 33.9 g/dL 32.5-35.6 [facility] MCHC (RBC) [Mass/Vol] MCHC [Mass/volume] by Automated count 32.5-35.6 [facility] MCV Auto (RBC) [Entitic vol] Ordered By: PROVIDER TEMP on 04-14-2024 MCV (RBC) [Entitic vol] MCV [Entitic volume] by Automated count 83.5-101 [facility] MCV [Entitic volume] by Auto mated countOrdered By: PROVIDER TEMP on 04-14-2024 MCV (RBC) [Entitic vol] 91.2 fL Normal 83.5-101 [facility] Comment on above: Performed By: #### B MP, CBC ####[facility] [id number] [address] Monocyte distribution width [Entitic volume] in Blood by AutomatedOrdered By: PROVIDER TEMP on 04-14-2024 Monocyte distribution width Auto (Bld) [Entitic vol] 21.04 % High 0.00-20.00 [facility] Comment on above: For adults in ED, MD W > 20.0 may be associated with a higher risk of sepsis during the first 12 hrs of hospital admission Monocyte distribution width Auto (Bld) [Entitic vol] Monocyte distribution width [Entitic volume] in Blood by Automated High 0.00-20.00 [facility] Comment on above: For adults in ED, MD W > 20.0 may be associated with a higher risk of sepsis during the first 12 hrs of hospital admission Monocytes Auto (Bld) [#/Vol] Ordered By: PROVIDER TEMP on 04-14-2024 Monocytes (Bld) [#/Vol] Automated blood monocyte count High 0.0-0.8 [facility] Monocytes/100 WBC Auto (Bld) Ordered By: PROVIDER TEMP on 04-14-2024 Monocytes/100 WBC (Bld) Automated monocyte % . [facility] Mucus [Presence] in Urine by AutomatedOrdered By: PROVIDER TEMP on 04-14-2024 Mucus Auto Ql (U) 2+ [LPF] Abnormal [facility] Mucus Auto Ql (U) Mucus [Presence] in Urine by Automated Abnormal [facility] Neutrophils Auto (Bld) [#/Vo l]Ordered By: PROVIDER TEMP on 04-14-2024 Neutrophils (Bld) [#/Vol] Neutrophils [#/volume] in Blood by Automated count High 1.8-7.7 [facility] Neutrophils [#/volume] in Bl ood by Automated countOrdered By: PROVIDER TEMP on 04-14-2024 Neutrophils (Bld) [#/Vol] 11.6 10*3/uL High 1.8-7.7 [facility] Comment on above: Performed By: #### B MP, CBC ####[facility] [id number] [place] [id number] [facility] Neutrophils/100 WBC Auto (Bl d)Ordered By: PROVIDER TEMP on 04-14-2024 Neutrophils/100 WBC (Bld) Automated neutrophil % . [facility] Nitrite Test strip Ql (U)Ord ered By: PROVIDER TEMP on 04-14-2024 Nitrite Ql (U) Negative Negative [facility] Nitrite Ql (U) Nitrite [Presence] i n Urine by Test strip Negative [facility] [...] 0-0.5 [facility] Nucleated RBC Auto Ql (Bld) Nucleated erythrocytes [Presence] in Blood by Automated count 0-0.5 [facility] Platelet mean volume Auto (B ld) [Entitic vol]Ordered By: PROVIDER TEMP on 04-14-2024 Platelet mean volume (Bld) [Entitic vol] Platelet mean volume [Entitic volume] in Blood by Automated count 6.6-10.1 [facility] Platelet mean volume [Entiti c volume] in Blood by Automated countOrdered By: PROVIDER TEMP on 04-14-2024 Platelet mean volume (Bld) [Entitic vol] 8.8 fL Normal 6.6-10.1 [facility] Comment on above: Performed By: #### B MP, CBC ####[facility] [id number] [place] [address] [facility] Platelets Auto (Bld) [#/Vol] Ordered By: PROVIDER TEMP on 04-14-2024 Platelets (Bld) [#/Vol] Platelets [#/volume] in Blood by Automated count 150-450 [facility] Platelets [#/volume] in Bloo d by Automated countOrdered By: PROVIDER TEMP on 04-14-2024 Platelets (Bld) [#/Vol] 225 10*3/uL Normal 150-450 [facility] Comment on above: Performed By: #### B MP, CBC ####[facility] [id number] [place] [address] [facility] Potassium [Moles/volume] in Serum or PlasmaOrdered By: Nhan Ramirez on 04-14-2024 Potassium [Moles/Vol] 3.4 mmol/L Low 3.5-5.1 [facility] Comment on above: Performed By: #### B MP, CBC ####[address] [address] [facility] Potassium [Moles/Vol] Potassium [Moles/v olume] in Serum or Plasma Low 3.5-5.1 [facility] Protein Test strip (U) [Mass /Vol]Ordered By: PROVIDER TEMP on 04-14-2024 Protein (U) [Mass/Vol] Protein [Mass/vol ume] in Urine by Test strip High Negative [facility] Protein [Mass/volume] in Uri ne by Test stripOrdered By: PROVIDER TEMP on 04-14-2024 Protein (U) [Mass/Vol] 100 mg/dL High Negative [facility] Comment on above: Order Comment: Name Collection Type:: Wiley Catheter Performed By: #### C UU, ADDONUAPLUS #### [facility] [address] RBC Auto (Bld) [#/Vol]Ordere d By: PROVIDER TEMP on 04-14-2024 RBC (Bld) [#/Vol] Erythrocytes [#/volu me] in Blood by Automated count 3.90-5.60 [facility] Serum or plasma anion gap de terminationOrdered By: Nhan Ramirez on 04-14-2024 Anion gap [Moles/Vol] 12.3 mmol/L Normal 6.0-15.0 [facility] Comment on above: Performed By: #### B SINDY, CBC ####[facility] Anion gap [Moles/Vol] Serum or plasma an ion gap determination 6.0-15.0 [facility] Sodium [Moles/volume] in Ser um or PlasmaOrdered By: Nhan Ramirez on 04-14-2024 Sodium [Moles/Vol] 137 mmol/L Normal 136-145 [facility] Comment on above: Performed By: #### B SINDY, CBC ####[address] Sodium [Moles/Vol] Sodium [Moles/volume ] in Serum or Plasma 136-145 [facility] Specific gravity Test strip (U) [Rel density]Ordered By: PROVIDER TEMP on 04-14-2024 Specific gravity (U) [Rel density] 1.024 1.001-1.030 [facility] Specific gravity (U) [Rel density] Specific gravity of Urine by Test strip 1.001-1.030 [facility] Urea nitrogen [Mass/volume] in Serum or PlasmaOrdered By: Nhan Ramirez on 04-14-2024 Urea nitrogen [Mass/Vol] 20 mg/dL Normal 7-25 [facility] Comment on above: Performed By: #### B MP, CBC ####[address] Urea nitrogen [Mass/Vol] Urea nitrogen [Mass/volume] in Serum or Plasma 7-25 [facility] Urine Cultureon 04-14-2024 Bacteria identified Cx Nom (U) No Growth 2 Days PERFORMED BY: [place] [address] PATHOLOGIST [employer] JAMISON ANDINO M.D. Normal [facility] Comment on above: Performed By: #### C UU, ADDONUAPLUS #### [facility] [address] [place] [address] Urine appearanceOrdered By: PROVIDER TEMP on 04-14-2024 Appearance (U) Turbid Critically abnormal Clear [facility] Comment on above: Order Comment: Name Collection Type:: Wiley Catheter Performed By: #### C UU, ADDONUAPLUS #### [facility] [address] [place] [address] Urine cultureOrdered By: PRO VIDER TEMP on 04-14-2024 Bacteria identified Cx Nom (U) Urine culture [facility] Urine culture routineOrdered By: PROVIDER TEMP on 04-14-2024 Bacteria identified Cx Nom (U) No Growth 2 Days [facility] Urobilinogen Test strip (U) [Mass/Vol]Ordered By: PROVIDER TEMP on 04-14-2024 Urobilinogen (U) [Mass/Vol] 2 mg/dL High Normal [facility] Urobilinogen (U) [Mass/Vol] Urobilinogen [Mass/volume] in Urine by Test strip High Normal [facility] WBC Auto (Bld) [#/Vol]Ordere d By: PROVIDER TEMP on 04-14-2024 WBC (Bld) [#/Vol] Leukocytes [#/volume ] in Blood by Automated count High 4.1-10.5 [facility] pH Test strip (U)Ordered By: PROVIDER TEMP on 04-14-2024 pH (U) pH of Urine by Test strip 5.0-9.0 [facility] pH of Urine by Test stripOrd ered By: PROVIDER TEMP on 04-14-2024 pH (U) 5.5 [pH] Normal 5.0-9.0 [facility] Comment on above: Order Comment: Name Collection Type:: Wiley Catheter Performed By: #### C UU, ADDSARANYAUAAMOS #### [facility] [address] Laboratory - Chemistry and C hemistry - challengeon 04-13-2024 Bilirubin Ql (U) Negative NEGATIVE [facility] Glucose (U) [Mass/Vol] Negative NEGATIVE [facility] Ketones Ql (U) Negative NEGATIVE [facility] [...] Ql (Urine sed) NONE SEEN NONE SEEN [facility] Nitrite Ql (U) Negative NEGATIVE [facility] Protein Ql (U) Negative NEG/TRACE [facility] No Panel Informationon 04-13 Urine Bacteria TRACE #/HPF Abnormal NONE SEEN [facility] Urine Culture Reflexed NO [facility] Urine Microscopic Review YES [facility] Urine Occult Blood LARGE Abnormal NEGATIVE [facility] Urine Other Casts NONE SEEN #/LPF NONE SEEN [facility] Urine Other Crystals None Seen #/HPF None [...] challengeon 01-02-2024 Ferritin [Mass/Vol] 81.0 ng/mL 26.0-388.[address] [facility] Iron [Mass/Vol] 163.0 ug/dL 65.0-175.0 [facility] Laboratory - Hematology and Cell countson 01-02-2024 [...] 01-02-2024 MCHC (RBC) [Mass/Vol] 32.9 g/dL 29.9-35.2 [facility] MCV Auto (RBC) [Entitic vol] on 01-02-2024 MCV (RBC) [Entitic vol] 99.4 fL High 80.0-94.0 [facility] Monocytes Auto (Bld) [#/Vol] on 01-02-2024 Monocytes (Bld) [#/Vol] 0.6 10 3/uL 0.3-0.8 [facility] Monocytes/100 WBC Auto (Bld) on 01-02-2024 [...] Eosinophils # (Auto) 0.2 10 3/uL 0.0-0.7 [facility] Immature Granulocyte # (Auto) 0.02 10 3/uL [...] (Bld) [#/Vol] 3.58 10 6/uL Low 4.70-6.[address] [facility] Consultation Noteon 12-21-19 Consultation Note [id number] Normal [facility] RAD - CT Reporton 12-21-2023 RAD - CT Report [id number]#[id number] Normal [facility] Basic Metabolic Panelon Creatinine Clr Calc Pharmacy 56.60 Normal [facility] Comment on above: Result Comment: PERF ORMED BY: [place] [address] PATHOLOGIST [employer] JAMISON ANDINO M.D. Performed By: #### P TT, HEPATIC, PT, CBC, MG, BMP #### [address] GFR/1.73 sq M.predicted MDRD (S/P/Bld) [Vol rate/Area] mL/min/{1.73_m2} Normal [facility] Comment on above: Performed By: #### P TT, HEPATIC, PT, CBC, MG, BMP #### [facility] [address] [place] [address] Calcium [Mass/volume] in Ser um or PlasmaOrdered By: George Romero on 12-01-2023 Calcium [Mass/Vol] 8.8 mg/dL Normal 8.6-10.3 [facility] Comment on above: Performed By: #### P TT, HEPATIC, PT, CBC, MG, BMP #### [facility] [address] [place] [address] [place] Carbon dioxide, total [Moles /volume] in Serum or PlasmaOrdered By: George Romero on 12-01-2023 CO2 [Moles/Vol] 28.2 mmol/L Normal 21.0-31.0 [facility] Comment on above: Performed By: #### P TT, HEPATIC, PT, CBC, MG, BMP #### [address] [address] [place] Chloride [Moles/volume] in S jose or PlasmaOrdered By: George Romero on 12-01-2023 Chloride [Moles/Vol] 109 mmol/L High 98-107 [facility] Comment on above: Performed By: #### P TT, HEPATIC, PT, CBC, MG, BMP #### [facility] [address] Creatinine [Mass/volume] in Serum or PlasmaOrdered By: George Romero on 12-01-2023 Creatinine [Mass/Vol] 0.94 mg/dL Normal 0.70-1.30 [facility] Comment on above: Performed By: #### P TT, HEPATIC, PT, CBC, MG, BMP #### [facility] [address] Erythrocyte distribution wid th [Ratio] by Automated countOrdered By: George Romero on 12-01-2023 Erythrocyte distribution width (RBC) [Ratio] 13.7 % Normal 12.0-14.8 [facility] Comment on above: Performed By: #### B MP, CBCNO, MG ####[facility] [id number] [address] Erythrocytes [#/volume] in B lood by Automated countOrdered By: George Romero on 12-01-2023 RBC (Bld) [#/Vol] 2.57 10*6/uL Low 3.90-5.[address] [facility] Comment on above: Performed By: #### B MP, CBCNO, MG ####[facility] Ext0031 [address] Glucose [Mass/volume] in Ser um or PlasmaOrdered By: George Romero on 12-01-2023 Glucose [Mass/Vol] 88 mg/dL Normal 70-100 [facility] Comment on above: ADA recommended refe rence rangeRandom Glucose Reference Range is dependent on time and content of last meal. Glucose of more than 200 mg/dL in a nonstressed, ambulatory subject supports the diagnosis of Diabetes Mellitus. Result Comment: [place] om Glucose Reference Range is dependent on time and content of last meal. Glucose of more than 200 mg/dL in a nonstressed, ambulatory subject supports the diagnosis of Diabetes Mellitus. ADA recommended reference range Performed By: #### P TT, HEPATIC, PT, CBC, MG, BMP #### [facility] [address] Hematocrit [Volume Fraction] of Blood by Automated countOrdered By: George Romero on 12-01-2023 Hematocrit (Bld) [Volume fraction] 24.8 % Low 38.8-50.0 [facility] Comment on above: Performed By: #### B MP, CBCNO, MG ####[facility] Hemoglobin [Mass/volume] in BloodOrdered By: George Romero on 12-01-2023 Hemoglobin (Bld) [Mass/Vol] 8.5 g/dL Low 13.0-17.0 [facility] Comment on above: Performed By: #### B MP, CBCNO, MG ####[facility] Hemogram CBC Without Diffon 12-01-2023 Mean Corpuscular HGB Conc 34.4 g/dL Normal 32.5-35.6 [facility] Comment on above: Performed By: #### B MP, CBCNO, MG ####[place] [id number] WBC (Bld) [#/Vol] 5.0 10*3/uL Normal 4.1-10.5 [facility] Comment on above: Performed By: #### B MP, CBCNO, MG ####[address] Leukocytes [#/volume] correc bekah for nucleated [...] Comment on above: Performed By: #### B MP, CBCNO, MG ####[facility] MCHC Auto (RBC) [Mass/Vol]Or dered By: George Romero on 12-01-2023 MCHC (RBC) [Mass/Vol] 34.4 g/dL 32.5-35.6 [facility] MCV [Entitic volume] by Auto mated countOrdered By: George Romero on 12-01-2023 MCV (RBC) [Entitic vol] 96.7 fL Normal 83.5-101 [facility] Comment on above: Performed By: #### B MP, CBCNO, MG ####[address] Magnesium [Mass/volume] in S jose or PlasmaOrdered By: George Romero on 12-01-2023 Magnesium [Mass/Vol] 1.6 mg/dL Low 1.9-2.7 [facility] Comment on above: Result Comment: PERF ORMED BY: [place] [address] PATHOLOGIST [employer] JAMISON ANDINO M.D. Performed By: #### P TT, HEPATIC, PT, CBC, MG, BMP #### [facility] [address] No Panel InformationOrdered By: George Romero [...] on above: Result Comment: PERF ORMED BY: [facility] [address] [facility] [place] [address] PATHOLOGIST [employer] JAMISON ANDINO M.D. Performed By: #### B MP, CBCNO, MG ####[facility] [id number] [address] Platelets [#/volume] in Bloo d by Automated countOrdered By: George Romero on 12-01-2023 Platelets (Bld) [#/Vol] 208 10*3/uL Normal 150-450 [facility] Comment on above: Performed By: #### B MP, CBCNO, MG ####[facility] [id number] [address] Potassium [Moles/volume] in Serum or PlasmaOrdered By: George Romero on 12-01-2023 Potassium [Moles/Vol] 3.7 mmol/L Normal 3.5-5.1 [facility] Comment on above: Performed By: #### P TT, HEPATIC, PT, CBC, MG, BMP #### [facility] [address] Serum or plasma anion gap de terminationOrdered By: George Romero on 12-01-2023 Anion gap [Moles/Vol] 7.5 mmol/L Normal 6.0-15.0 [facility] Comment on above: Performed By: #### P TT, HEPATIC, PT, CBC, MG, BMP #### [facility] [address] [place] [address] [place] Sodium [Moles/volume] in Ser um or PlasmaOrdered By: George Romero on 12-01-2023 Sodium [Moles/Vol] 141 mmol/L Normal 136-145 [facility] Comment on above: Performed By: #### P TT, HEPATIC, PT, CBC, MG, BMP #### [facility] [address] [place] [address] [place] Urea nitrogen [Mass/volume] in Serum or PlasmaOrdered By: George Romero on 12-01-2023 Urea nitrogen [Mass/Vol] 9 mg/dL Normal 7-25 [facility] Comment on above: Performed By: #### P TT, HEPATIC, PT, CBC, MG, BMP #### [facility] [address] Basic Metabolic Panelon 05-0 Anion gap [Moles/Vol] 7.2 mmol/L Normal 6.0-15.0 [facility] Comment on above: Performed By: #### B MP, MG, CBCNO ####[place] [id number] Calcium [Mass/Vol] 8.9 mg/dL Normal 8.6-10.3 [facility] Comment on above: Performed By: #### B MP, MG, CBCNO ####[place] [address] Chloride [Moles/Vol] 107 mmol/L Normal 98-107 [facility] Comment on above: Performed By: #### B MP, MG, CBCNO ####[place] [address] CO2 [Moles/Vol] 29.5 mmol/L Normal 21.0-31.0 [facility] Comment on above: Performed By: #### B MP, MG, CBCNO ####[address] Creatinine [Mass/Vol] 0.88 mg/dL Normal 0.70-1.30 [facility] Comment on above: Performed By: #### B MP, MG, CBCNO ####[place] [address] [place] Creatinine Clr Calc Pharmacy 60.45 Normal [facility] Comment on above: Result Comment: PERF ORMED BY: [facility] [address] [place] [address] PATHOLOGIST [employer] JAMISON ANDINO M.D. Performed By: #### B MP, MG, CBCNO ####[place] [id number] GFR/1.73 sq M.predicted MDRD (S/P/Bld) [Vol rate/Area] mL/min/{1.73_m2} Normal [facility] Comment on above: Performed By: #### B MP, MG, CBCNO ####[place] [id number] [facility] Glucose [Mass/Vol] 93 mg/dL Normal 70-100 [facility] Comment on above: Result Comment: [place] Glucose Reference Range is dependent on time and content of last meal. Glucose of more than 200 mg/dL in a nonstressed, ambulatory subject supports the diagnosis of Diabetes Mellitus. ADA recommended reference range Performed By: #### B MP, MG, CBCNO ####[place] [id number] [facility] Potassium [Moles/Vol] 3.7 mmol/L Normal 3.5-5.1 [facility] Comment on above: Performed By: #### B MP, MG, CBCNO ####[address] Sodium [Moles/Vol] 140 mmol/L Normal 136-145 [facility] Comment on above: Performed By: #### B MP, MG, CBCNO ####[place] [id number] [facility] Urea nitrogen [Mass/Vol] 13 mg/dL Normal 7-25 [facility] Comment on above: Performed By: #### B MP, MG, CBCNO ####[place] [id number] [facility] Hemogram CBC Without Diffon 11-30-2023 Erythrocyte distribution width (RBC) [Ratio] 13.7 % Normal 12.0-14.8 [facility] Comment on above: Performed By: #### B MP, MG, CBCNO ####[place] [id number] [facility] Hematocrit (Bld) [Volume fraction] 26.4 % Low 38.8-50.0 [facility] Comment on above: Performed By: #### B MP, MG, CBCNO ####[place] [id number] [facility] Hemoglobin (Bld) [Mass/Vol] 9.1 g/dL Low 13.0-17.0 [facility] Comment on above: Performed By: #### B MP, MG, CBCNO ####[address] MCH (RBC) [Entitic mass] 33.3 pg Normal 27.5-35.2 [facility] Comment on above: Performed By: #### B MP, MG, CBCNO ####[address] MCV (RBC) [Entitic vol] 96.3 fL Normal 83.5-101 [facility] Comment on above: Performed By: #### B MP, MG, CBCNO ####[address] Mean Corpuscular HGB Conc 34.6 g/dL Normal 32.5-35.6 [facility] Comment on above: Performed By: #### B MP, MG, CBCNO ####[address] Platelet mean volume (Bld) [Entitic vol] 8.8 fL Normal 6.6-10.1 [facility] Comment on above: Result Comment: PERF ORMED BY: [facility] [address] [facility] [place] [address] PATHOLOGIST [employer] JAMISON ANDINO M.D. Performed By: #### B MP, MG, CBCNO ####[address] Platelets (Bld) [#/Vol] 200 10*3/uL Normal 150-450 [facility] Comment on above: Performed By: #### B MP, MG, CBCNO ####[address] RBC (Bld) [#/Vol] 2.74 10*6/uL Low 3.90-5.60 [facility] Comment on above: Performed By: #### B MP, MG, CBCNO ####[address] WBC (Bld) [#/Vol] 5.6 10*3/uL Normal 4.1-10.5 [facility] Comment on above: Performed By: #### B MP, MG, CBCNO ####[place] [id number] [place] [address] [facility] Magnesiumon 11-30-2023 Magnesium [Mass/Vol] 1.7 mg/dL Low 1.9-2.7 [facility] Comment on above: Result Comment: PERF ORMED BY: [facility] [address] [place] [id number] PATHOLOGIST [employer] JAMISON ANDINO M.D. Performed By: #### B MP, MG, CBCNO ####[place] [id number] [place] [id number] [facility] PSA Total (Not a Screen)on 0 11-30-2023 PSA Total (Not a Screen) 18.310 ng/mL High 0.000-4.000 [facility] Comment on above: Result Comment: Seri al tumor marker results determined by assays using different manufacturers or methods may not be comparable. [facility] medical assistant ob gyn and method: [employer] DXI, CHEMILUMINESCENT IMMUNOASSAY. PERFORMED BY: [facility] [address] [place] [address] PATHOLOGIST IN[employer] JAMISON ANDINO M.D. Performed By: #### P SATOTAL ####[place] [id number] [facility] Prostate specific Ag [Mass/v olume] in Serum or PlasmaOrdered By: Syed Buchanan on 11-30-2023 Prostate specific Ag [Mass/Vol] 18.310 ng/mL 0.000-4.000 [facility] Comment on above: Serial tumor marker results determined by assays using different manufacturers or methods may not be comparable.[facility] medical assistant ob gyn and method:[employer] DXI, CHEMILUMINESCENT IMMUNOASSAY. Urine Cultureon 11-30-2023 Bacteria identified Cx Nom (U) Comment clean catch <9,000 colonies/ml mixed bacterial skin contaminants 2 Days PERFORMED BY: [facility] [address] [place] [id number] PATHOLOGIST IN[employer]CTOR [employer] JAMISON ANDINO M.D. Normal [facility] Comment on above: Performed By: #### C UU ####[facility] [id number] [place] [id number] [facility] Urine culture routineOrdered By: Syed Buchanan on 11-30-2023 Bacteria identified Cx Nom (U) 2 Days [facility] ABO/Rh Retypeon 11-29-2023 ABO/RH Recheck Result Negative Normal [facility] Comment on above: Result Comment: PERF ORMED BY: [facility] [address] [place] [address] PATHOLOGIST IN[employer] JAMISON ANDINO M.D. Activated partial thrombopla stin time (aPTT) in platelet poor plasma by coagulation aOrdered By: Bárbara Ramirez on 11-29-2023 aPTT Coag (PPP) [Time] 35.6 s 25.1-36.5 [facility] Comment on above: A hematocrit value g reater than 55% may lead to inaccurate results in coagulation testing. Patients having hematocrit values >55% require a special collection tube for coagulation studies. Please contact the laboratory at [phone] for redraw instructions. Alanine aminotransferase [En zymatic activity/volume] in Serum or PlasmaOrdered By: Bárbara Ramirez on 11-29-2023 ALT [Catalytic activity/Vol] 13 U/L Normal 7-52 [facility] Comment on above: Performed By: #### P TT, HEPATIC, PT, CBC, MG, BMP #### [facility] [address] [place] [id number] [place] Albumin [Mass/volume] in Ser um or [...] TT, HEPATIC, PT, CBC, MG, BMP #### [facility] [address] [place] [address] Aspartate aminotransferase [ Enzymatic activity/volume] in Serum or PlasmaOrdered By: Bárbara Ramirez on 11-29-2023 AST [Catalytic activity/Vol] 21 U/L Normal 13-39 [facility] Comment on above: Performed By: #### P TT, HEPATIC, PT, CBC, MG, BMP #### [address] Automated basophil %Ordered By: Bárbara Ramirez on 11-29-2023 Basophils/100 WBC (Bld) 0.7 % Normal . [facility] Comment on above: Performed By: #### P TT, HEPATIC, PT, CBC, MG, BMP #### [address] Automated basophil countOrde red By: Bárbara Ramirez on 11-29-2023 Basophils (Bld) [#/Vol] 0.0 10*3/uL Normal 0.0-0.2 [facility] Comment on above: Result Comment: PERF ORMED BY: [place] [address] PATHOLOGIST [employer] JAMISON ANDINO M.D. Performed By: #### P TT, HEPATIC, PT, CBC, MG, BMP #### [address] Automated blood monocyte cou ntOrdered By: Bárbara Ramirez on 11-29-2023 Monocytes (Bld) [#/Vol] 0.7 10*3/uL Normal 0.0-0.8 [facility] Comment on above: Performed By: #### P TT, HEPATIC, PT, CBC, MG, BMP #### [address] Automated eosinophil %Ordere d By: Bárbara Ramirez on 11-29-2023 Eosinophils/100 WBC (Bld) 1.6 % Normal . [facility] Comment on above: Performed By: #### P TT, HEPATIC, PT, CBC, MG, BMP #### [address] Automated eosinophil countOr dered By: Bárbara Ramirez on 11-29-2023 Eosinophils (Bld) [#/Vol] 0.1 10*3/uL Normal 0.0-0.45 [facility] Comment on above: Performed By: #### P TT, HEPATIC, PT, CBC, MG, BMP #### [address] Automated monocyte %Ordered By: Bárbara Ramirez on 11-29-2023 Monocytes/100 WBC (Bld) 9.2 % Normal . [facility] Comment on above: Performed By: #### P TT, HEPATIC, PT, CBC, MG, BMP #### [address] Automated neutrophil %Ordere d By: Bárbara Ramirez on 11-29-2023 Neutrophils/100 WBC (Bld) 65.8 % Normal . [facility] Comment on above: Performed By: #### P TT, HEPATIC, PT, CBC, MG, BMP #### [address] Basic Metabolic Panelon 05 Anion gap [Moles/Vol] 10.8 mmol/L Normal 6.0-15.0 [facility] e [facility] Comment on above: Performed By: #### P TT, HEPATIC, PT, CBC, MG, BMP #### [address] Calcium [Mass/Vol] 9.1 mg/dL Normal 8.6-10.3 [facility] Comment on above: Performed By: #### P TT, HEPATIC, PT, CBC, MG, BMP #### [address] Chloride [Moles/Vol] 105 mmol/L Normal 98-107 [facility] Comment on above: Performed By: #### P TT, HEPATIC, PT, CBC, MG, BMP #### [address] CO2 [Moles/Vol] 27.3 mmol/L Normal 21.0-31.0 [facility] Comment on above: Performed By: #### P TT, HEPATIC, PT, CBC, MG, BMP #### [facility] [address] Creatinine [Mass/Vol] 0.92 mg/dL Normal 0.70-1.30 [facility] Comment on above: Performed By: #### P TT, HEPATIC, PT, CBC, MG, BMP #### [facility] [address] [place] [address] [place] Creatinine Clr Calc Pharmacy 57.83 Normal [facility] Comment on above: Performed By: #### P TT, HEPATIC, PT, CBC, MG, BMP #### [facility] [address] [place] [address] [place] GFR/1.73 sq M.predicted MDRD (S/P/Bld) [Vol rate/Area] mL/min/{1.73_m2} Normal [facility] Comment on above: Performed By: #### P TT, HEPATIC, PT, CBC, MG, BMP #### [facility] [address] [place] [address] [place] Glucose [Mass/Vol] 83 mg/dL Normal 70-100 [facility] Comment on above: Result Comment: [facility] Glucose Reference Range is dependent on time and content of last meal. Glucose of more than 200 mg/dL in a nonstressed, ambulatory subject supports the diagnosis of Diabetes Mellitus. ADA recommended reference range Performed By: #### P TT, HEPATIC, PT, CBC, MG, BMP #### [facility] [address] [place] [address] [place] Potassium [Moles/Vol] 4.1 mmol/L Normal 3.5-5.1 [facility] Comment on above: Performed By: #### P TT, HEPATIC, PT, CBC, MG, BMP #### [facility] [address] [place] [address] [place] Sodium [Moles/Vol] 139 mmol/L Normal 136-145 [facility] Comment on above: Performed By: #### P TT, HEPATIC, PT, CBC, MG, BMP #### [facility] [address] [place] [address] [place] Urea nitrogen [Mass/Vol] 19 mg/dL Normal 7-25 [facility] Comment on above: Performed By: #### P TT, HEPATIC, PT, CBC, MG, BMP #### [address] Bilirubin.direct [Mass/volum e] in Serum or PlasmaOrdered By: Bárbara Ramirez on 11-29-2023 Bilirubin.direct [Mass/Vol] 0.20 mg/dL 0.03-0.18 [facility] Bilirubin.total [Mass/volume ] in Serum or PlasmaOrdered By: Bárbara Ramirez on 11-29-2023 Bilirubin [Mass/Vol] 1.4 mg/dL High 0.3-1.0 [facility] Comment on above: Samples from patient s [...] TT, HEPATIC, PT, CBC, MG, BMP #### [address] Complete Blood Count Auto Di ffon 11-29-2023 Erythrocyte distribution width (RBC) [Ratio] 13.8 % Normal 12.0-14.8 [facility] Comment on above: Performed By: #### P TT, HEPATIC, PT, CBC, MG, BMP #### [address] Hematocrit (Bld) [Volume fraction] 30.3 % Low 38.8-50.0 [facility] Comment on above: Performed By: #### P TT, HEPATIC, PT, CBC, MG, BMP #### [address] Hemoglobin (Bld) [Mass/Vol] 10.4 g/dL Low 13.0-17.0 [facility] Comment on above: Performed By: #### P TT, HEPATIC, PT, CBC, MG, BMP #### [address] MCH (RBC) [Entitic mass] 33.1 pg Normal 27.5-35.2 [facility] Comment on above: Performed By: #### P TT, HEPATIC, PT, CBC, MG, BMP #### [address] MCV (RBC) [Entitic vol] 96.4 fL Normal 83.5-101 [facility] Comment on above: Performed By: #### P TT, HEPATIC, PT, CBC, MG, BMP #### [address] Mean Corpuscular HGB Conc 34.3 g/dL Normal 32.5-35.6 [facility] Comment on above: Performed By: #### P TT, HEPATIC, PT, CBC, MG, BMP #### [address] NRBC% 0.1 /100{WBC} Normal 0-0.5 [facility] Comment on above: Performed By: #### P TT, HEPATIC, PT, CBC, MG, BMP #### [address] Platelet mean volume (Bld) [Entitic vol] 9.1 fL Normal 6.6-10.1 [facility] Comment on above: Performed By: #### P TT, HEPATIC, PT, CBC, MG, BMP #### [address] Platelets (Bld) [#/Vol] 207 10*3/uL Normal 150-450 [facility] Comment on above: Performed By: #### P TT, HEPATIC, PT, CBC, MG, BMP #### [address] RBC (Bld) [#/Vol] 3.14 10*6/uL Low 3.90-5.60 [facility] Comment on above: Performed By: #### P TT, HEPATIC, PT, CBC, MG, BMP #### [facility] [address] [place] [address] [place] ECG 12 lead ECGon 11-29-2023 ECG 12 lead ECG [facility] Main [address] [address] Electrocardiograph Report Signed Patient: Rishi Babcock MR#: [id number] : 1940 Acct:[id number] Age/Sex: 83 / M ADM Date: 11/28/23 Loc: Room: [address] [place] [address] Type: ADM IN Attending Dr: George Romero [...] 4:13:14 PM Referred By: Electronically Signed By:ANGELITA CELESTIN MD [facility] Transcribed By: MUS Signed By Angelita Celestin MD, FACC 11/29/23 1613 Normal [facility] Hepatic Panelon 11-29-2023 Albumin [Mass/Vol] 3.6 g/dL Normal 3.5-5.7 [facility] Comment on above: Performed By: #### P TT, HEPATIC, PT, CBC, MG, BMP #### [facility] [address] [place] [id number] [place] Bilirubin,Indirect 1.2 mg/dL Normal [facility] Comment on above: Performed By: #### P TT, HEPATIC, PT, CBC, MG, BMP #### [facility] [address] [place] [address] [place] Bilirubin.indirect [Mass/Vol] 0.20 mg/dL High 0.03-0.18 [facility] Comment on above: Performed By: #### P TT, HEPATIC, PT, CBC, MG, BMP #### [address] INR in Platelet poor plasma by [...] TT, HEPATIC, PT, CBC, MG, BMP #### [address] Leukocytes [#/volume] in Blo od by Automated countOrdered By: Bárbara Ramirez on 11-29-2023 WBC (Bld) [#/Vol] 7.3 10*3/uL Normal 4.1-10.5 [facility] Comment on above: Performed By: #### P TT, HEPATIC, PT, CBC, MG, BMP #### [facility] [address] [place] [address] [place] Lymphocytes [#/volume] in Bl ood by Automated countOrdered By: Bárbara Ramirez on 11-29-2023 Lymphocytes (Bld) [#/Vol] 1.7 10*3/uL Normal 1.00-4.8 [facility] Comment on above: Performed By: #### P TT, HEPATIC, PT, CBC, MG, BMP #### [address] Lymphocytes/100 leukocytes i n Blood by Automated countOrdered By: Bárbara Ramirez on 11-29-2023 Lymphocytes/100 WBC (Bld) 22.7 % Normal . [facility] Comment on above: Performed By: #### P TT, HEPATIC, PT, CBC, MG, BMP #### [facility] [address] [place] [address] Magnesiumon 11-29-2023 Magnesium [Mass/Vol] 1.4 mg/dL Low 1.9-2.7 [facility] Comment on above: Result Comment: PERF ORMED BY: [place] [address] PATHOLOGIST [employer] JAMISON ANDINO M.D. Performed By: #### P TT, HEPATIC, PT, CBC, MG, BMP #### [address] Neutrophils [#/volume] in Bl ood by Automated countOrdered By: Bárbara Ramirez on 11-29-2023 Neutrophils (Bld) [#/Vol] 4.8 10*3/uL Normal 1.8-7.7 [facility] Comment on above: Performed By: #### P TT, HEPATIC, PT, CBC, MG, BMP #### [facility] [address] [place] [address] Nucleated erythrocytes [Pres ence] in Blood by Automated countOrdered By: Bárbara Ramirez on 11-29-2023 Nucleated RBC Auto Ql (Bld) 0.1 /100{WBC} 0-0.5 [facility] Partial Thromboplastin Timeo n 11-29-2023 aPTT Coag (Bld) [Time] 35.6 s Normal 25.1-36.5 [facility] Comment on above: Result Comment: A he matocrit value greater than 55% may lead to inaccurate results in coagulation testing. Patients having hematocrit values >55% require a special collection tube for coagulation studies. Please contact the laboratory at [phone] for redraw instructions. PERFORMED BY: [place] [address] PATHOLOGIST [employer] JAMISON ANDINO M.D. Performed By: #### P TT, HEPATIC, PT, CBC, MG, BMP #### [address] Protein [Mass/volume] in Ser um or PlasmaOrdered By: Bárbara Ramirez on 11-29-2023 Protein [Mass/Vol] 5.4 g/dL Low 6.4-8.9 [facility] Comment on above: Performed By: #### P TT, HEPATIC, PT, CBC, MG, BMP #### [address] Prothrombin time (PT)Ordered By: Bárbara Ramirez on 11-29-2023 PT Coag (PPP) [Time] 11.5 s Normal 9.0-12.9 [facility] Comment on above: A hematocrit value g reater than 55% may lead to inaccurate results in coagulation testing. Patients having hematocrit values >55% require a special collection tube for coagulation studies. Please contact the laboratory at [phone] for redraw instructions. Result Comment: A he matocrit value greater than 55% may lead to inaccurate results in coagulation testing. Patients having hematocrit values >55% require a special collection tube for coagulation studies. Please contact the laboratory at [phone] for redraw instructions. Performed By: #### P TT, HEPATIC, PT, CBC, MG, BMP #### [address] Serum globulin measurement b y calculation (mass/volume)Ordered By: Bárbara Ramirez on 11-29-2023 Globulin (S) [Mass/Vol] 1.8 g/dL [facility] Comment on above: Performed By: #### P TT, HEPATIC, PT, CBC, MG, BMP #### [address] Serum or plasma albumin/glob ulin mass ratioOrdered By: Bárbara Ramirez on 11-29-2023 Albumin/Globulin [Mass ratio] 2.0 {ratio} [facility] Comment on above: Performed By: #### P TT, HEPATIC, PT, CBC, MG, BMP #### [facility] [address] Serum or plasma non-glucuron idated bilirubin measurement (mass/volume)Ordered By: Bárbara Ramirez on 11-29-2023 Bilirubin.indirect [Mass/Vol] 1.2 mg/dL [facility] Type and Screenon 11-29-2023 ABO and Rh group Nom (Bld) Blood group O Rh(D) negative Normal [facility] Comment on above: Order Comment: Trans fuse now? N Result Comment: PERF ORMED BY: [facility] [address] [place] [address] PATHOLOGIST IN[employer] JAMISON ANDINO M.D. Basophils Auto (Bld) [#/Vol] [...] [Volume fraction] 32.4 % Low 38.8-50.0 [facility] Comment on above: Result Comment: PERF ORMED BY: [facility] [address] [facility] [place] [id number] PATHOLOGIST IN[employer] JAMISON ANDINO M.D. Performed By: #### H H ####[place] [address] [place] [address] [facility] Hemoglobin (Bld) [Mass/Vol] 11.0 g/dL Low 13.0-17.0 [facility] Comment on above: Performed By: #### H H ####[place] [id number] [place] [id number] [facility] INR in Platelet poor plasma by Coagulation assayon 11-28-2023 INR Coag (PPP) [Relative time] 1.02 {INR} [facility] Comment on above: DESIRED INR:2.0-3.0 CONDITIONS NOT LISTED BELOW2.5-3.5 FOR PROSTHETIC HEART VALVE REPLACEMENT2.5-3.5 RECURRENT THROMBOSIS Laboratory - Chemistry and C hemistry - challengeon 11-28-2023 Albumin [Mass/Vol] 3.7 g/dL 3.4-5.0 [facility] ALP [Catalytic activity/Vol] 175 U/L 46-116 [facility] ALT [Catalytic activity/Vol] 24 U/L 16-63 [facility] AST [Catalytic activity/Vol] 24 U/L 15-37 [facility] Bilirubin [Mass/Vol] 1.1 mg/dL 0.2-1.0 [facility] Calcium [Mass/Vol] 9.4 mg/dL 8.5-10.1 [facility] Chloride [Moles/Vol] 102 mmol/L 98-107 [facility] CO2 [Moles/Vol] 28.7 mmol/L 21.0-32.0 [facility] Creatinine [Mass/Vol] 1.19 mg/dL 0.70-1.30 [facility] GFR/1.73 sq M.predicted MDRD (S/P/Bld) [Vol rate/Area] mL/min/{1.73_m2} >=60 [facility] Glucose [Mass/Vol] 114 mg/dL 74-106 [facility] Lactate [Moles/Vol] 1.4 mmol/L 0.4-2.[address] [facility] Potassium [Moles/Vol] 3.9 mmol/L 3.5-5.1 [facility] Protein [Mass/Vol] 6.7 g/dL 6.4-8.2 [facility] Sodium [Moles/Vol] 140 mmol/L 136-145 [facility] Urea nitrogen [Mass/Vol] 23.0 mg/dL 7.0-18.0 [facility] Urea nitrogen/Creatinine [Mass ratio] 19.3 mg/mg [facility] Laboratory - Hematology and Cell countson 11-28-2023 Immature granulocytes/100 WBC (Bld) 0.4 % 0.0-0.5 [facility] LeukoReduced RBCon LeukoReduced RBC NOT AVAILABLE Normal [facility] Leukocytes [#/volume] correc bekah for [...] 11-28-2023 MCHC (RBC) [Mass/Vol] 33.7 g/dL 29.9-35.2 [facility] MCV Auto (RBC) [Entitic vol] on 11-28-2023 [...] Eosinophils # (Auto) 0.0 10 3/uL 0.0-0.7 [facility] Immature Granulocyte # (Auto) 0.04 10 3/uL [...] PT Coag (PPP) [Time] 10.8 s 9.0-11.6 [facility] RBC Auto (Bld) [#/Vol]on RBC (Bld) [#/Vol] 3.43 10 6/uL 4.70-6.[address] [facility] Serum or plasma albumin/glob ulin mass ratioon 11-28-2023 Albumin/Globulin [Mass ratio] 1.2 {ratio} [facility] Serum or plasma anion gap de terminationon 11-28-2023 Anion gap [Moles/Vol] 13.2 mmol/L [facility] Automated basophil %Ordered By: John Adam on 11-07-2023 Basophils/100 WBC (Bld) 0.4 % Normal . [facility] Comment on above: Performed By: #### P TT, HEPATIC, PT, CBC, MG, BMP #### [address] Automated basophil countOrde red By: John Adam on 11-07-2023 Basophils (Bld) [#/Vol] 0.0 10*3/uL Normal 0.0-0.2 [facility] Comment on above: Result Comment: PERF ORMED BY: [place] [address] PATHOLOGIST [employer] JAMISON ANDINO M.D. Performed By: #### P TT, HEPATIC, PT, CBC, MG, BMP #### [address] Automated blood monocyte cou ntOrdered By: John Adam on 11-07-2023 Monocytes (Bld) [#/Vol] 0.5 10*3/uL Normal 0.0-0.8 [facility] Comment on above: Performed By: #### P TT, HEPATIC, PT, CBC, MG, BMP #### [address] Automated eosinophil %Ordere d By: John Adam on 11-07-2023 Eosinophils/100 WBC (Bld) 1.3 % Normal . [facility] Comment on above: Performed By: #### P TT, HEPATIC, PT, CBC, MG, BMP #### [address] Automated eosinophil countOr dered By: John Adam on 11-07-2023 Eosinophils (Bld) [#/Vol] 0.1 10*3/uL Normal 0.0-0.45 [facility] Comment on above: Performed By: #### P TT, HEPATIC, PT, CBC, MG, BMP #### [facility] [address] Automated monocyte %Ordered By: John Adam on 11-07-2023 Monocytes/100 WBC (Bld) 7.0 % Normal . [facility] Comment on above: Performed By: #### P TT, HEPATIC, PT, CBC, MG, BMP #### [facility] [address] Automated neutrophil %Ordere d By: John Adam on 11-07-2023 Neutrophils/100 WBC (Bld) 70.6 % Normal . [facility] Comment on above: Performed By: #### P TT, HEPATIC, PT, CBC, MG, BMP #### [address] Basic Metabolic Panelon 10-28 GFR/1.73 sq M.predicted MDRD (S/P/Bld) [Vol rate/Area] mL/min/{1.73_m2} Normal [facility] Comment on above: Performed By: #### P TT, HEPATIC, PT, CBC, MG, BMP #### [address] Calcium [Mass/volume] in Ser um or PlasmaOrdered By: John Adam on 11-07-2023 Calcium [Mass/Vol] 10.0 mg/dL Normal 8.6-10.3 [facility] Comment on above: Result Comment: PERF ORMED BY: [address] [place] [address] PATHOLOGIST [employer] JAMISON ANDINO M.D. Performed By: #### P TT, HEPATIC, PT, CBC, MG, BMP #### [address] Carbon dioxide, total [Moles /volume] in Serum or PlasmaOrdered By: John Adam on 11-07-2023 CO2 [Moles/Vol] 33.6 mmol/L High 21.0-31.0 [facility] Comment on above: Performed By: #### P TT, HEPATIC, PT, CBC, MG, BMP #### [address] Chloride [Moles/volume] in S jose or PlasmaOrdered By: John Adam on 11-07-2023 Chloride [Moles/Vol] 100 mmol/L Normal 98-107 [facility] Comment on above: Performed By: #### P TT, HEPATIC, PT, CBC, MG, BMP #### [address] Complete Blood Count Auto Di ffon 11-07-2023 Mean Corpuscular HGB Conc 33.9 g/dL Normal 32.5-35.6 [facility] Comment on above: Performed By: #### P TT, HEPATIC, PT, CBC, MG, BMP #### [address] NRBC% 0.1 /100{WBC} Normal 0-0.5 [facility] Comment on above: Performed By: #### P TT, HEPATIC, PT, CBC, MG, BMP #### [address] Creatinine [Mass/volume] in Serum or PlasmaOrdered By: John Adam on 11-07-2023 Creatinine [Mass/Vol] 1.05 mg/dL Normal 0.70-1.30 [facility] Comment on above: Performed By: #### P TT, HEPATIC, PT, CBC, MG, BMP #### [address] Erythrocyte distribution wid th [Ratio] by Automated countOrdered By: John Adam on 11-07-2023 Erythrocyte distribution width (RBC) [Ratio] 14.0 % Normal 12.0-14.8 [facility] Comment on above: Performed By: #### P TT, HEPATIC, PT, CBC, MG, BMP #### [address] Erythrocytes [#/volume] in B lood by Automated countOrdered By: John Adam on 11-07-2023 RBC (Bld) [#/Vol] 4.60 10*6/uL Normal 3.90-5.[address] [facility] Comment on above: Performed By: #### P TT, HEPATIC, PT, CBC, MG, BMP #### [facility] [address] Glucose [Mass/volume] in Ser um or PlasmaOrdered By: John Adam on 11-07-2023 Glucose [Mass/Vol] 111 mg/dL High 70-100 [facility] Comment on above: ADA recommended refe rence rangeRandom Glucose Reference Range is dependent on time and content of last meal. Glucose of more than 200 mg/dL in a nonstressed, ambulatory subject supports the diagnosis of Diabetes Mellitus. Result Comment: [place] om Glucose Reference Range is dependent on time and content of last meal. Glucose of more than 200 mg/dL in a nonstressed, ambulatory subject supports the diagnosis of Diabetes Mellitus. ADA recommended reference range Performed By: #### P TT, HEPATIC, PT, CBC, MG, BMP #### [facility] [address] Hematocrit [Volume Fraction] of Blood by Automated countOrdered By: John Adam on 11-07-2023 Hematocrit (Bld) [Volume fraction] 44.3 % Normal 38.8-50.0 [facility] Comment on above: Performed By: #### P TT, HEPATIC, PT, CBC, MG, BMP #### [facility] [address] Hemoglobin [Mass/volume] in BloodOrdered By: John Adam on 11-07-2023 Hemoglobin (Bld) [Mass/Vol] 15.0 g/dL Normal 13.0-17.0 [facility] Comment on above: Performed By: #### P TT, HEPATIC, PT, CBC, MG, BMP #### [facility] [address] [place] [address] [place] Leukocytes [#/volume] correc bekah for nucleated erythrocytes in Blood by Automated counOrdered By: John Adam on 11-07-2023 WBC corrected for nucl RBC Auto (Bld) [#/Vol] 7.5 10*3/uL 4.1-10.5 [facility] Leukocytes [#/volume] in Blo od by Automated countOrdered By: John Adam on 11-07-2023 WBC (Bld) [#/Vol] 7.5 10*3/uL Normal 4.1-10.5 [facility] Comment on above: Performed By: #### P TT, HEPATIC, PT, CBC, MG, BMP #### [facility] [address] [place] [address] Lymphocytes [#/volume] in Bl ood by Automated countOrdered By: John Adam on 11-07-2023 Lymphocytes (Bld) [#/Vol] 1.6 10*3/uL Normal 1.00-4.8 [facility] Comment on above: Performed By: #### P TT, HEPATIC, PT, CBC, MG, BMP #### [facility] [address] [place] [address] Lymphocytes/100 leukocytes i n Blood by Automated countOrdered By: John Adam on 11-07-2023 Lymphocytes/100 WBC (Bld) 20.7 % Normal . [facility] Comment on above: Performed By: #### P TT, HEPATIC, PT, CBC, MG, BMP #### [facility] [address] [place] [address] MCH [Entitic mass] by Automa bekah countOrdered By: John Adam on 11-07-2023 MCH (RBC) [Entitic mass] 32.7 pg Normal 27.5-35.2 [facility] Comment on above: Performed By: #### P TT, HEPATIC, PT, CBC, MG, BMP #### [facility] [address] [place] [address] MCHC Auto (RBC) [Mass/Vol]Or dered By: John Adam on 11-07-2023 MCHC (RBC) [Mass/Vol] 33.9 g/dL 32.5-35.6 [facility] MCV [Entitic volume] by Auto mated countOrdered By: John Adam on 11-07-2023 MCV (RBC) [Entitic vol] 96.3 fL Normal 83.5-101 [facility] Comment on above: Performed By: #### P TT, HEPATIC, PT, CBC, MG, BMP #### [facility] [address] Neutrophils [#/volume] in Bl ood by Automated countOrdered By: John Adam on 11-07-2023 Neutrophils (Bld) [#/Vol] 5.3 10*3/uL Normal 1.8-7.7 [facility] Comment on above: Performed By: #### P TT, HEPATIC, PT, CBC, MG, BMP #### [facility] [address] No Panel InformationOrdered By: John Adam [...] TT, HEPATIC, PT, CBC, MG, BMP #### [facility] [address] [place] [address] Platelets [#/volume] in Bloo d by Automated countOrdered By: John Adam on 11-07-2023 Platelets (Bld) [#/Vol] 228 10*3/uL Normal 150-450 [facility] Comment on above: Performed By: #### P TT, HEPATIC, PT, CBC, MG, BMP #### [facility] [address] [place] [address] Potassium [Moles/volume] in Serum or PlasmaOrdered By: John Adam on 11-07-2023 Potassium [Moles/Vol] 4.2 mmol/L Normal 3.5-5.1 [facility] Comment on above: Performed By: #### P TT, HEPATIC, PT, CBC, MG, BMP #### [facility] [address] [place] [address] [place] Serum or plasma anion gap de terminationOrdered By: John Adam on 11-07-2023 Anion gap [Moles/Vol] 10.6 mmol/L Normal 6.0-15.0 [facility] Comment on above: Performed By: #### P TT, HEPATIC, PT, CBC, MG, BMP #### [place] [address] [place] Sodium [Moles/volume] in Ser um or PlasmaOrdered By: John Adam on 11-07-2023 Sodium [Moles/Vol] 140 mmol/L Normal 136-145 [facility] Comment on above: Performed By: #### P TT, HEPATIC, PT, CBC, MG, BMP #### [place] [address] [place] Urea nitrogen [Mass/volume] in Serum or PlasmaOrdered By: John Adam on 11-07-2023 Urea nitrogen [Mass/Vol] 21 mg/dL Normal 7-25 [facility] Comment on above: Performed By: #### P TT, HEPATIC, PT, CBC, MG, BMP #### [address] ECG 12 lead ECGon 10-24-2023 ECG 12 lead ECG [facility] [place] [address] [place] [address] Electrocardiograph Report Signed Patient: Rishi Babcock MR#: [id number] : 1940 Acct:[id number] Age/Sex: 83 / M ADM Date: 10/24/23 Loc: EKGCARDIO Room: Type: [facility] Attending Dr: Sushil Goodman MD Ordering [...] previous ECGs available Confirmed by Sushil Goodman ([id number]) on 11/07/2023 5:45:22 PM Referred By: Electronically Signed By:Sushil Goodman Transcribed By: MUS Signed By Sushil Goodman MD 11/07/23 6766 Normal [facility] XR cerv spine AP/LAT/FLX/EXT on 10-11-2023 XR cerv spine AP/LAT/FLX/EXT [facility] [place] [address] [place] [address] XRay Report Signed Patient: Rishi Babcock MR#: [id number] : 1940 Acct:[id number] Age/Sex: 83 / M ADM Date: 10/11/23 Loc: XD Room: Type: [facility] Attending Dr: Lesvia BUTLER Copies to: LUKE [...] Waylon Whitfield M.D.10/11/2023 4:43 PM Dictation Location: [place] [address] Transcribed By: [facility] 10/11/23 3030 Dictated By: Waylon Whitfield II, MD 10/11/23 1641 Signed By: 10/11/23 164 Normal [facility] XR lumbar spine 6V w bending on 10-11-2023 XR lumbar spine 6V w bending [facility] [place] [address] [place], [place] [id number] XRay Report Signed Patient: Rishi Babcock MR#: [id number] : 1940 Acct:[id number] Age/Sex: 83 / M ADM Date: 10/11/23 Loc: XD Room: Type: [facility] Attending Dr: Lesvia VIRAMONTESC Copies to: LUKE [...] Waylon Whitfield M.D.10/11/2023 4:54 PM Dictation Location: [place] [address] Transcribed By: [facility] 10/11/231653 Dictated By: Waylon Whitfield II, MD 10/11/231651 Signed By: 10/11/231653 Normal [facility] FOLATE, RBCon 10-27-2022 Folate, Hemolysate 293.0 ng/mL Normal Not Estab. [facility] Comment on above: Performed By: #### C BC #### [facility] [address] [place] [address] Dr. Haile Omalley Folate, RBC 731 ng/mL Normal >498 [facility] Comment on above: Performed By: #### C BC #### [facility] [address] [place] [address] Dr. Haile Omalley Hematocrit (Bld) [Volume fraction] 40.1 % Normal 37.5-51.0 [facility] Comment on above: Performed By: #### C BC #### [facility] [address] [place] [address] Dr. Haile Omalley CBC AUTO DIFFon 10-25-2022 BASO # 0.0 103/ul Normal 0.0-0.1 [facility] Comment on above: Performed By: #### C BC #### [facility] [address] [place] [address] Dr. Haile Omalley Basophils/100 WBC (Bld) 0.3 % Normal 0.2-2.0 [facility] Comment on above: Performed By: #### C BC #### [facility] [address] [place] [address] Dr. Haile Omalley EO # 0.1 103/ul Normal 0.0-0.7 [facility] Comment on above: Performed By: #### C BC #### [facility] [address] [place] [address] Dr. Haile Omalley Eosinophils/100 WBC (Bld) 1.4 % Normal 0.9-7.0 [facility] Comment on above: Performed By: #### C BC #### [facility] [address] [place] [address] Dr. Haile Omalley Erythrocyte distribution width (RBC) [Ratio] 13.3 % Normal 11.0-15.0 [facility] Comment on above: Performed By: #### C BC #### [facility] [address] [place] [address] Dr. Haile Omalley Hematocrit (Bld) [Volume fraction] 40.8 % Critically low 42.0-54.0 [facility] Comment on above: Performed By: #### C BC #### [facility] [address] [place] [address] Dr. Haile Omalley Hemoglobin (Bld) [Mass/Vol] 13.8 g/dL Critically low 14.0-18.0 [facility] Comment on above: Performed By: #### C BC #### [facility] [address] [place] [address] Dr. Hiale Omalley IG # 0.04 10e3/ul Critically high 0.00-0.03 [facility] Comment on above: Performed By: #### C BC #### [facility] [address] [place] [address] Dr. Haile Omalley IG % 0.5 % Normal 0.0-0.5 [facility] Comment on above: Performed By: #### C BC #### [facility] [address] [place] [address] Dr. Haile Omalley LYMPH # 1.4 103/ul Normal 1.2-3.8 [facility] Comment on above: Performed By: #### C BC #### [facility] [address] [place] [address] Dr. Haile Omalley Lymphocytes/100 WBC (Bld) 16.4 % Critically low 20.5-60.0 [facility] Comment on above: Performed By: #### C BC #### [facility] [address] [place] [address] Dr. Haile Omalley MANUAL DIFF REQ NO Normal [facility] Comment on above: Performed By: #### C BC #### [facility] [address] [place] [address] Dr. Haile Omalley MCH (RBC) [Entitic mass] 32.0 pg Normal 25.9-34.0 [facility] Comment on above: Performed By: #### C BC #### [facility] [address] [place] [address] Dr. Haile Omalley MCHC (RBC) [Mass/Vol] 33.8 g/dL Normal 29.9-35.2 [facility] Comment on above: Performed By: #### C BC #### [facility] [address] [place] [address] Dr. Haile Omalley MCV (RBC) [Entitic vol] 94.7 fL Critically high 80.0-94.0 [facility] Comment on above: Performed By: #### C BC #### [facility] [address] [place] [address] Dr. Haile Omalley MONO # 0.8 103/ul Normal 0.3-0.8 [facility] Comment on above: Performed By: #### C BC #### [facility] [address] [place] [address] Dr. Haile Omalley Monocytes/100 WBC (Bld) 9.6 % Normal 1.7-12.0 [facility] Comment on above: Performed By: #### C BC #### [facility] [address] [place] [address] Dr. Haile Omalley NEUT # 6.2 103/ul Normal 1.4-6.5 [facility] Comment on above: Performed By: #### C BC #### [facility] [address] [place] [address] Dr. Haile Omalley Neutrophils/100 WBC (Bld) 71.8 % Normal 43.0-75.0 [facility] Comment on above: Performed By: #### C BC #### [facility] [address] [place] [address] Dr. Haile Omalley Platelet mean volume (Bld) [Entitic vol] 10.6 fL Normal 9.5-13.5 [facility] Comment on above: Performed By: #### C BC #### [facility] [address] [place] [address] Dr. Haile Omalley PLT 212 103/ul Normal 150-450 [facility] Comment on above: Performed By: #### C BC #### [facility] [address] [place] [address] Dr. Haile Omalley RBC 4.31 106/ul Critically low 4.70-6.10 [facility] Comment on above: Performed By: #### C BC #### [facility] [address] [place] [address] Dr. Haile Omalley WBC 8.6 103/ul Normal 4.0-11.0 [facility] Comment on above: Performed By: #### C BC #### [facility] [address] [place] [address] Dr. Haile Omalley FERRITINon 10-25-2022 Ferritin [Mass/Vol] 395.0 ng/mL Critically high 26.0-388.0 [facility] Comment on above: Performed By: #### C BC #### [facility] [address] [place] [address] Dr. Haile Omalley IRON AND TIBCon 10-25-2022 % SATURATION 11.7 % Normal [facility] Comment on above: Performed By: #### C BC #### [facility] [address] [place] [address] Dr. Haile Omalley Iron [Mass/Vol] 31.0 ug/dL Critically low 65.0-175.0 [facility] Comment on above: Performed By: #### C BC #### [facility] [address] [place] [address] Dr. Haile Omalley TIBC DIRECT 264.0 ug/dL Normal 250.0-450.0 [facility] Comment on above: Performed By: #### C BC #### [facility] [address] [place] [address] Dr. Haile Omalley VITAMIN B12on 10-25-2022 Cobalamin (Vitamin B12) [Mass/Vol] 531.0 pg/mL Normal 193.0-986.0 [facility] Comment on above: Performed By: #### C BC #### [facility] [address] [place] [address] Dr. Haile Omalley UA RANDOM W/MICROSCOPICon BACTERIA NONE SEEN Normal NONE SEEN [facility] Comment on above: Performed By: #### U AMIC #### [facility] [address] [place] [address] Dr. Haile Omalley Bilirubin Ql (U) Negative Normal NEGATIVE [facility] Comment on above: Performed By: #### U AMIC #### [facility] [address] [place] [address] [address] Haile Omalley CAST NONE SEEN Normal NONE SEEN [facility] Comment on above: Performed By: #### U AMIC #### [facility] [address] [place] [address] [address] Haile Omalley Clarity (U) CLEAR Normal CLEAR [facility] Comment on above: Performed By: #### U AMIC #### [facility] [address] [place] [address] [address] Haile Omalley Color (U) YELLOW Normal YELLOW [facility] Comment on above: Performed By: #### U AMIC #### [facility] [address] [place] [address] Dr. Haile Omalley Crystals LM Nom (Urine sed) NONE SEEN Normal NONE SEEN [facility] Comment on above: Performed By: #### U AMIC #### [facility] [address] [place] [address] [address] Haile Omalley Epithelial cells LM Ql (Urine sed) RARE Normal NONE SEEN /RARE [facility] Comment on above: Performed By: #### U AMIC #### [facility] [address] [place] [address] [address] Haile Omalley Glucose Ql (U) Negative Normal NEGATIVE [facility] Comment on above: Performed By: #### U AMIC #### [facility] [address] [place] [address] [address] Haile Omalley Hemoglobin Ql (U) Negative Normal NEGATIVE [facility] Comment on above: Performed By: #### U AMIC #### [facility] [address] [place] [address] [address] Haile Omalley Ketones Ql (U) Negative Normal NEGATIVE [facility] Comment on above: Performed By: #### U AMIC #### [facility] [address] [place] [address] [address] Haile Omalley LEUKOCYTES Negative Normal NEGATIVE [facility] Comment on above: Performed By: #### U AMIC #### [facility] [address] [place] [address] Dr. Haile Omalley MUCOUS NONE SEEN Normal NONE SEEN [facility] Comment on above: Performed By: #### U AMIC #### [facility] [address] [place] [address] Dr. Haile Omalley Nitrite Ql (U) Negative Normal NEGATIVE [facility] Comment on above: Performed By: #### U AMIC #### [facility] [address] [place] [address] Dr. Haile Omalley pH (U) 8.0 [pH] Normal 5-9 [facility] Comment on above: Performed By: #### U AMIC #### [facility] [address] [place] [address] Dr. Haile Omalley RBC NONE SEEN Abnormal 0-2 [facility] Comment on above: Performed By: #### U AMIC #### [facility] [address] [place] [address] Dr. Haile Omalley SPEC GRAVITY 1.015 Normal 1.005-<=1.0 25 [facility] Comment on above: Performed By: #### U AMIC #### [facility] [address] [place] [address] Dr. Haile Omalley UA PROTEIN Negative Normal NEGATIVE/ TRACE [facility] Comment on above: Performed By: #### U AMIC #### [facility] [address] [place] [address] Dr. Haile Omalley Urobilinogen Qn (U) 4 {Michel'U}/dL Abnormal 0.2 - 1.0 [facility] Comment on above: Performed By: #### U AMIC #### [facility] [address] [place] [address] Dr. Haile Omalley WBC NONE SEEN Normal NONE SEEN [facility] Comment on above: Performed By: #### U AMIC #### [facility] [address] [place] [address] Dr. Haile Omalley CBC AUTO DIFFon 07-18-2022 BASO # 0.0 103/ul Normal 0.0-0.1 [facility] Comment on above: Performed By: #### C BC #### [facility] [address] [place] [address] Dr. Haile Omalley Basophils/100 WBC (Bld) 0.3 % Normal 0.2-2.0 [facility] Comment on above: Performed By: #### C BC #### [facility] [address] [place] [address] Dr. Haile Omalley EO # 0.1 103/ul Normal 0.0-0.7 [facility] Comment on above: Performed By: #### C BC #### [facility] [address] [place] [address] Dr. Haile Omalley Eosinophils/100 WBC (Bld) 1.0 % Normal 0.9-7.0 [facility] Comment on above: Performed By: #### C BC #### [facility] [address] [place] [address] Dr. Haile Omalley Erythrocyte distribution width (RBC) [Ratio] 13.3 % Normal 11.0-15.0 [facility] Comment on above: Performed By: #### C BC #### [facility] [address] [place] [address] Dr. Haile Omalley Hematocrit (Bld) [Volume fraction] 40.0 % Critically low 42.0-54.0 [facility] Comment on above: Performed By: #### C BC #### [facility] [address] [place] [address] Dr. Haile Omalley Hemoglobin (Bld) [Mass/Vol] 13.5 g/dL Critically low 14.0-18.0 [facility] Comment on above: Performed By: #### C BC #### [facility] [address] [place] [address] Dr. Haile Omalley IG # 0.02 10e3/ul Normal 0.00-0.03 [facility] Comment on above: Performed By: #### C BC #### [facility] [address] [place] [address] Dr. Haile Omalley IG % 0.3 % Normal 0.0-0.5 [facility] Comment on above: Performed By: #### C BC #### [facility] [address] [place] [address] Dr. Haile Omalley LYMPH # 1.5 103/ul Normal 1.2-3.8 [facility] Comment on above: Performed By: #### C BC #### [facility] [address] [place] [address] Dr. Haile Omalley Lymphocytes/100 WBC (Bld) 22.1 % Normal 20.5-60.0 [facility] Comment on above: Performed By: #### C BC #### [facility] [address] [place] [address] Dr. Haile Omalley MANUAL DIFF REQ NO Normal [facility] Comment on above: Performed By: #### C BC #### [facility] [address] [place] [address] Dr. Haile Omalley MCH (RBC) [Entitic mass] 33.0 pg Normal 25.9-34.0 [facility] Comment on above: Performed By: #### C BC #### [facility] [address] [place] [address] Dr. Haile Omalley MCHC (RBC) [Mass/Vol] 33.8 g/dL Normal 29.9-35.2 [facility] Comment on above: Performed By: #### C BC #### [facility] [address] [place] [address] Dr. Haile Omalley MCV (RBC) [Entitic vol] 97.8 fL Critically high 80.0-94.0 [facility] Comment on above: Performed By: #### C BC #### [facility] [address] [place] [address] Dr. Haile Omalley MONO # 0.7 103/ul Normal 0.3-0.8 [facility] Comment on above: Performed By: #### C BC #### [facility] [address] [place] [address] Dr. Haile Omalley Monocytes/100 WBC (Bld) 10.6 % Normal 1.7-12.0 [facility] Comment on above: Performed By: #### C BC #### [facility] [address] [place] [address] Dr. Haile Omalley NEUT # 4.6 103/ul Normal 1.4-6.5 [facility] Comment on above: Performed By: #### C BC #### [facility] [address] [place] [address] Dr. Haile Omalley Neutrophils/100 WBC (Bld) 65.7 % Normal 43.0-75.0 [facility] Comment on above: Performed By: #### C BC #### [facility] [address] [place] [address] Dr. Haile Omalley Platelet mean volume (Bld) [Entitic vol] 10.5 fL Normal 9.5-13.5 [facility] Comment on above: Performed By: #### C BC #### [facility] [address] [place] [address] Dr. Haile Omalley PLT 177 103/ul Normal 150-450 [facility] Comment on above: Performed By: #### C BC #### [facility] [address] [place] [address] Dr. Haile Omalley RBC 4.09 106/ul Critically low 4.70-6.10 [facility] Comment on above: Performed By: #### C BC #### [facility] [address] [place] [address] Dr. Haile Omalley WBC 7.0 103/ul Normal 4.0-11.0 [facility] Comment on above: Performed By: #### C BC #### [facility] [address] [place] [address] Dr. Haile Omalley PROF CHEM 8 (BAS METB)on Anion gap [Moles/Vol] 6.9 mmol/L Normal [facility] Comment on above: Performed By: #### B MP #### [facility] [address] [place] [address] Dr. Haile Omalley Calcium [Mass/Vol] 9.0 mg/dL Normal 8.5-10.1 [facility] Comment on above: Performed By: #### B MP #### [facility] [address] [place], [place] [id number] Dr. Haile Omalley Chloride [Moles/Vol] 99 mmol/L Normal 98-107 [facility] Comment on above: Performed By: #### B MP #### [facility] [address] [place] [address] Dr. Haile Omalley CO2 [Moles/Vol] 35.8 mmol/L Critically high 21.0-32.0 [facility] Comment on above: Performed By: #### B MP #### [facility] [address] [place] [address] Dr. Haile Omalley Creatinine [Mass/Vol] 1.09 mg/dL Normal 0.70-1.30 [facility] Comment on above: Performed By: #### B MP #### [facility] [address] [place] [address] Dr. Haile Omalley EGFR-AF TRINIDADIAN >60 Normal >=60 [facility] Comment on above: Performed By: #### B MP #### [facility] [address] [place] [address] Dr. Haile Omalley EGFR-NON AF TRINIDADIAN >60 Normal >=60 [facility] Comment on above: Performed By: #### B MP #### [facility] [address] [place] [address] Dr. Haile Omalley Glucose [Mass/Vol] 114 mg/dL Critically high 74-106 [facility] Comment on above: Performed By: #### B MP #### [facility] [address] [place] [address] Dr. Haile Omalley Potassium [Moles/Vol] 3.7 mmol/L Normal 3.5-5.1 [facility] Comment on above: Performed By: #### B MP #### [facility] [address] [place] [address] Dr. Haile Omalley Sodium [Moles/Vol] 138 mmol/L Normal 136-145 [facility] Comment on above: Performed By: #### B MP #### [facility] [address] [place] [address] Dr. Haile Omalley Urea nitrogen [Mass/Vol] 27.0 mg/dL Critically high 7.0-18.0 [facility] Comment on above: Performed By: #### B MP #### [facility] [address] [address] [address] Haile Omalley Urea nitrogen/Creatinine [Mass ratio] 24.8 mg/mg Normal [facility] Comment on above: Performed By: #### B MP #### [facility] [address] [address] [address] Haile Omalley MRI BRAIN WO CONon [...] FRANKO JACOBS Date: 2021-12-27 18:17 Normal [facility] METHYLMALONIC ACID (MMA)on 0 12-23-2021 Methylmalonic Acid, Serum 282 nmol/L Normal 0-378 [facility] Comment on above: Performed By: #### M MA2 #### [facility] [address] [address] [address] Haile Omalley PROTEIN ELECTROPHERESISon Albumin [Mass/Vol] 4.0 g/dL Normal 2.9-4.4 [facility] Comment on above: Performed By: #### C BC #### [facility] [address] [address] [address] Haile Omalley Albumin/Globulin [Mass ratio] 1.5 {ratio} Normal 0.7-1.7 [facility] Comment on above: Performed By: #### C BC #### [facility] [address] [place] [address] Dr. Haile Omalley Yyivq-7-Uaxhskjm 0.2 g/dL Normal 0.0-0.4 [facility] Comment on above: Performed By: #### C BC #### [facility] [address] [place] [address] Dr. Haile Omalley Ujepa-9-Qwezqzrh 0.8 g/dL Normal 0.4-1.0 [facility] Comment on above: Performed By: #### C BC #### [facility] [address] [place] [address] Dr. Haile Omalley Beta Globulin 1.0 g/dL Normal 0.7-1.3 [facility] Comment on above: Performed By: #### C BC #### [facility] [address] [place] [address] Dr. Haile Omalley Gamma Globulin 0.6 g/dL Normal 0.4-1.8 [facility] Comment on above: Performed By: #### C BC #### [facility] [address] [place] [address] Dr. Haile Omalley Globulin (S) [Mass/Vol] 2.6 g/dL Normal 2.2-3.9 [facility] Comment on above: Performed By: #### C BC #### [facility] [address] [place] [address] Dr. Haile Omalley M-Danie Not Observed Normal Not Observed [facility] Comment on above: Performed By: #### C BC #### [facility] [address] [place] [address] Dr. Haiel Omalley PDF . Normal [facility] Comment on above: Performed By: #### C BC #### [facility] [address] [place] [address] Dr. Haile Omalley Please note: Comment Normal [facility] Comment on above: Result Comment: Prot ein electrophoresis scan will follow via computer, mail, or services rep delivery. Performed By: #### C BC #### [facility] [address] [place] [address] Dr. Haile Omalley Protein [Mass/Vol] 6.6 g/dL Normal 6.0-8.5 [facility] Comment on above: Performed By: #### C BC #### [facility] [address] [place] [address] Dr. Haile Omalley GILDA COMPREHENSIVE PROFILEon 12-17-2021 Anti-Centromere B Antibodies <0.2 Normal 0.0-0.9 [facility] Comment on above: Performed By: #### A NAPROF #### [facility] [address] [place] [address] Dr. Haile Omalley Anti-DNA (DS) Ab Qn 1 IU/mL Normal 0-9 [facility] Comment on above: Result Comment: Nega tive <5 Equivocal 5 - 9 Positive >9 Performed By: #### A NAPROF #### [facility] [address] [place] [address] Dr. Haile Omalley Anti-Avani-1 <0.2 Normal 0.0-0.9 [facility] Comment on above: Performed By: #### A NAPROF #### [facility] [address] [place] [address] Dr. Haile Omalley Antichromatin Antibodies <0.2 Normal 0.0-0.9 [facility] Comment on above: Performed By: #### A NAPROF #### [facility] [address] [place] [address] Dr. Haile Omalley ANTIRIBOSOMAL P AB <0.2 Normal 0.0-0.9 [facility] Comment on above: Performed By: #### A NAPROF #### [facility] [address] [place] [address] Dr. Haile Omalley Antiscleroderma-70 Antibodies <0.2 Normal 0.0-0.9 [facility] Comment on above: Performed By: #### A NAPROF #### [facility] [address] [place] [address] Dr. Haile Omalley COMMENT Comment Normal [facility] Comment on above: Result Comment: Auto antibody Disease Association Condition Frequency Antinuclear Antibody, SLE, mixed connective Direct (GILDA-D) tissue diseases dsDNA SLE 40 - 60% Chromatin Drug induced SLE 90% SLE 48 - 97% SSA (Ro) SLE 25 - 35% Sjogren's Syndrome 40 - 70% Lupus 100% SSB (La) SLE 10% Sjogren's Syndrome 30% Sm (anti-Ramirez) SLE 15 - 30% TECHNOLOGY SUPPORT ANALYST Mixed Connective Tissue Disease 95% (U1 nRNP, SLE 30 - 50% anti-ribonucleoprotein) Polymyositis and/or Dermatomyositis 20% Scl-70 (antiDNA Scleroderma (diffuse) 20 - 35% topoisomerase) Crest 13% Avani-1 Polymyositis and/or Dermatomyositis 20 - 40% Centromere B Scleroderma - Crest variant 80% Ribosomal P SLE 10 - 20% Performed By: #### A NAPROF #### [facility] [address] [place] [address] Dr. Haile Oamlley TECHNOLOGY SUPPORT ANALYST Antibodies <0.2 Normal 0.0-0.9 [facility] Comment on above: Performed By: #### A NAPROF #### [facility] [address] [place] [address] Dr. Haile Wilderogrcriss'gavin Anti-SS-A <0.2 Normal 0.0-0.9 [facility] Comment on above: Performed By: #### A NAPROF #### [facility] [address] [place] [address] Dr. Haile Wilderogrcriss's Anti-SS-B <0.2 Normal 0.0-0.9 [facility] Comment on above: Performed By: #### A DARROF #### [facility] [address] [place] [address] Dr. Haile Ramirez Antibodies <0.2 Normal 0.0-0.9 [facility] Comment on above: Performed By: #### A NAPROF #### [facility] [address] [place] [address] Dr. Haile Omalley Ramirez/TECHNOLOGY SUPPORT ANALYST Antibodies <0.2 Normal 0.0-0.9 [facility] Comment on above: Performed By: #### A DARROF #### [facility] [address] [place] [address] Dr. Haile Omalley CRPon 12-16-2021 CRP [Mass/Vol] mg/L Normal <=1.0 [facility] Comment on above: Performed By: #### C BC #### [facility] [address] [place] [address] Dr. Haile Omalley GLYCOHEMOGLOBIN A1Con 2021 ADA RECOMMENDATION SEE BELOW Normal [facility] Comment on above: Result Comment: ADA RECOMMENDED LIMIT 4.0 - 6.0 ADA THERAPEUTIC TARGET < 7.0 ACTION SUGGESTED > 7.0 Performed By: #### A 1C #### [facility] [address] [place] [address] Dr. Haile Omalley Glucose [Mass/Vol] 105 mg/dL Normal [facility] Comment on above: Performed By: #### A 1C #### [facility] [address] [place] [address] Dr. Haile Omalley HbA1c (Bld) [Mass fraction] 5.3 % Normal 4.5-6.2 [facility] Comment on above: Performed By: #### A 1C #### [facility] [address] [place] [address] Dr. Haile Omalley PROF 14(COMP METB)on 022 Albumin [Mass/Vol] 4.0 g/dL Normal 3.4-5.0 [facility] Comment on above: Performed By: #### T SH, CRP, CMP #### [facility] [address] [address] [address] Haile Omalley Albumin/Globulin [Mass ratio] 1.3 {ratio} Normal [facility] Comment on above: Performed By: #### T SH, CRP, CMP #### [facility] [address] [address] [address] Haile Omalley ALP [Catalytic activity/Vol] 172 U/L Critically high 46-116 [facility] Comment on above: Performed By: #### T SH, CRP, CMP #### [facility] [address] [address] [address] Haile Omalley ALT [Catalytic activity/Vol] 25 U/L Normal 16-63 [facility] Comment on above: Performed By: #### T SH, CRP, CMP #### [facility] [address] [address] [address] Haile Omalley Anion gap [Moles/Vol] 13.1 mmol/L Normal [facility] Comment on above: Performed By: #### T SH, CRP, CMP #### [facility] [address] [address] [address] Haile Omalley AST [Catalytic activity/Vol] 21 U/L Normal 15-37 [facility] Comment on above: Performed By: #### T SH, CRP, CMP #### [facility] [address] [address] [address] Haile Omalley Bilirubin [Mass/Vol] 0.8 mg/dL Normal 0.2-1.0 [facility] Comment on above: Performed By: #### T SH, CRP, CMP #### [facility] [address] [address] [address] Haile Omalley Calcium [Mass/Vol] 9.5 mg/dL Normal 8.5-10.1 [facility] Comment on above: Performed By: #### T SH, CRP, CMP #### [facility] [address] [address] [address] Haile Omalley Chloride [Moles/Vol] 104 mmol/L Normal 98-107 [facility] Comment on above: Performed By: #### T SH, CRP, CMP #### [facility] [address] [address] [address] Haile Omalley CO2 [Moles/Vol] 31.5 mmol/L Normal 21.0-32.0 [facility] Comment on above: Performed By: #### T SH, CRP, CMP #### [facility] [address] [address] [address] Haile Omalley Creatinine [Mass/Vol] 1.14 mg/dL Normal 0.70-1.30 [facility] Comment on above: Performed By: #### T SH, CRP, CMP #### [facility] [address] [address] [address] Haile Omalley EGFR-AF TRINIDADIAN >60 Normal >=60 [facility] Comment on above: Performed By: #### T SH, CRP, CMP #### [facility] [address] [place] [address] Dr. Haile Omalley EGFR-NON AF TRINIDADIAN >60 Normal >=60 [facility] Comment on above: Performed By: #### T SH, CRP, CMP #### [facility] [address] [address] [address] Haile Omalley Globulin (S) [Mass/Vol] 3.1 g/dL Normal [facility] Comment on above: Performed By: #### T SH, CRP, CMP #### [facility] [address] [address] [address] Haile Omalley Glucose [Mass/Vol] 106 mg/dL Normal 74-106 [facility] Comment on above: Performed By: #### T SH, CRP, CMP #### [facility] [address] [address] [address] Haile Omalley Potassium [Moles/Vol] 4.6 mmol/L Normal 3.5-5.1 [facility] Comment on above: Performed By: #### T SH, CRP, CMP #### [facility] [address] [address] [address] Haile Omalley Protein [Mass/Vol] 7.1 g/dL Normal 6.4-8.2 [facility] Comment on above: Performed By: #### T SH, CRP, CMP #### [facility] [address] [place] [address] Dr. Haile Omalley Sodium [Moles/Vol] 144 mmol/L Normal 136-145 [facility] Comment on above: Performed By: #### T SH, CRP, CMP #### [facility] [address] [place] [address] Dr. Haile Omalley Urea nitrogen [Mass/Vol] 30.0 mg/dL Critically high 7.0-18.0 [facility] Comment on above: Performed By: #### T SH, CRP, CMP #### [facility] [address] [place] [address] Dr. Haile Omalley Urea nitrogen/Creatinine [Mass ratio] 26.3 mg/mg Normal [facility] Comment on above: Performed By: #### T SH CRP, CMP #### [facility] [address] [place] [address] Dr. Haile Omal[facility] 4 mm/hr Normal <=20 [facility] Comment on above: Performed By: #### S EDR #### [facility] [address] [place] [address] Dr. Haile Omalley TSHon 12-16-2021 TSH 1.097 uIU/mL Normal 0.358-3.740 [facility] Comment on above: Performed By: #### T SH, CRP, CMP #### [facility] [address] [place] [address] Dr. Hiale Omalley TSH RANGE SEE BELOW Normal [facility] Comment on above: Result Comment: <0.3 4 UIU/ml HYPERTHYROID 0.34-5.60 UIU/ml EUTHYROID >5.60 UIU/ml HYPOTHYROID Performed By: #### T SH, CRP, CMP #### [facility] [address] [place] [address] Dr. Haile Omalley VIT B12 AND FOLATEon 022 Cobalamin (Vitamin B12) [Mass/Vol] 470.0 pg/mL Normal 193.0-986.0 [facility] Comment on above: Performed By: #### B 12FOL #### [facility] [address] [place], [place] [address] Dr. Haile Omalley FOLATE 15.50 ng/mL Normal 8.60-58.90 [facility] Comment on above: Performed By: #### B 12FOL #### [facility] [address] [id number] [address] Haile Omalley Vital Signs Date Time Vital Sign Value Performing Clinician Facility 10-17-2024 13:31-0400 Body height 170.18 cm [facility] 10-17-2024 13:31-0400 Body mass index (BMI) [Ratio] 23 kg/m2 [facility] 10-17-2024 13:31-0400 Body weight 66.67 kg [facility] 10-17-2024 13:31-0400 Diastolic blood pressure 91 mm[Hg] [facility] 10-17-2024 13:31-0400 Heart rate 76 /min [facility] 10-17-2024 13:31-0400 Respiratory rate 12 /min [facility] 10-17-2024 13:31-0400 Systolic blood pressure 133 mm[Hg] [facility] 08-25-2024 14:07-0500 Body height 170.18 cm Cameron Ball DO Work Phone: [facility] 08-25-2024 14:07-0500 Body mass index (BMI) [Ratio] 23.1 kg/m2 Cameron Ball DO Work Phone: [facility] 08-25-2024 14:07-0500 Body weight 66.79 kg Cameron Ball DO Work Phone: [facility] 08-25-2024 14:07-0500 Diastolic blood pressure 69 mm[Hg] Cameron Ball DO Work Phone: [facility] 08-25-2024 14:07-0500 Heart rate 82 /min Cameron Ball DO Work Phone: [facility] 08-25-2024 14:07-0500 Respiratory rate 12 /min Cameron Ball DO Work Phone: [facility] 08-25-2024 14:07-0500 Systolic blood pressure 121 mm[Hg] Cameron Ball DO Work Phone: [facility] 07-14-2024 14:48-0500 Body height 170.18 cm Cameron Ball DO Work Phone: [facility] 07-14-2024 14:48-0500 Body mass index (BMI) [Ratio] 23.2 kg/m2 Cameron Ball DO Work Phone: [facility] 07-14-2024 14:48-0500 Body weight 67.3 kg Cameron Ball DO Work Phone: [facility] 07-14-2024 14:48-0500 Diastolic blood pressure 68 mm[Hg] Cameron Ball DO Work Phone: [facility] 07-14-2024 14:48-0500 Heart rate 81 /min Cameron Ball DO Work Phone: [facility] 07-14-2024 14:48-0500 Respiratory rate 12 /min Cameron Ball DO Work Phone: [facility] 07-14-2024 14:48-0500 Systolic blood pressure 144 mm[Hg] Cameron Ball DO Work Phone: [facility] 06-20-2024 09:07-0500 Body height 172.7 cm Ulises Goetz Jr., MD Work Phone: [facility] 06-20-2024 09:07-0500 Body mass index (BMI) [Ratio] 24.33 kg/m2 Ulises Goetz Jr., MD Work Phone: [facility] 06-20-2024 09:07-0500 Body weight 72.58 kg Ulises Goetz Jr., MD Work Phone: [facility] 06-20-2024 09:07-0500 Diastolic blood pressure 61 mm[Hg] Ulises Goetz Jr., MD Work Phone: [facility] 06-20-2024 09:07-0500 Heart rate 72 /min Ulises Goetz Jr., MD Work Phone: [facility] 06-20-2024 09:07-0500 Systolic blood pressure 151 mm[Hg] Ulises Goetz Jr., MD Work Phone: [facility] 06-12-2024 15:10-0500 Diastolic blood pressure 56 mm[Hg] Cameron Ball DO Work Phone: [facility] 06-12-2024 15:10-0500 Heart rate 60 /min Cameron Ball DO Work Phone: [facility] 06-12-2024 15:10-0500 Respiratory rate 16 /min Cameron Ball DO Work Phone: [facility] 06-12-2024 15:10-0500 SaO2% (BldA) [Mass fraction] 97 % Cameron Ball DO Work Phone: [facility] 06-12-2024 15:10-0500 Systolic blood pressure 114 mm[Hg] Cameron Ball DO Work Phone: [facility] 06-12-2024 13:41-0500 Body height 170.18 cm Cameron Ball DO Work Phone: [facility] 06-12-2024 13:41-0500 Body weight 63.5 kg Cameron Ball DO Work Phone: [facility] 05-21-2024 11:45-0400 Body height 170.18 cm DO Cameron Ball Work Phone: [facility] 05-21-2024 11:45-0400 Body mass index (BMI) [Ratio] 22.6 kg/m2 DO Cameron Ball Work Phone: [facility] 05-21-2024 11:45-0400 Body weight 65.43 kg DO Cameron Ball Work Phone: [facility] 05-21-2024 11:45-0400 Diastolic blood pressure 62 mm[Hg] DO Cameron Ball Work Phone: [facility] 05-21-2024 11:45-0400 Heart rate 76 /min DO Cameron Ball Work Phone: [facility] 05-21-2024 11:45-0400 Respiratory rate 12 /min DO Cameron Ball Work Phone: [facility] 05-21-2024 11:45-0400 Systolic blood pressure 111 mm[Hg] DO Cameron Ball Work Phone: [facility] 05-13-2024 10:49-0400 Body height 170.2 cm Alexander Damon MD Work Phone: [facility] 05-13-2024 10:49-0400 Body mass index (BMI) [Ratio] 23.02 kg/m2 Alexander Damon MD Work Phone: [facility] 05-13-2024 10:49-0400 Body weight 66.68 kg Alexander Damon MD Work Phone: [facility] 05-13-2024 10:49-0400 Diastolic blood pressure 68 mm[Hg] Alexander Damon MD Work Phone: [facility] 05-13-2024 10:49-0400 Systolic blood pressure 131 mm[Hg] Alexander Damon MD Work Phone: [facility] 05-09-2024 08:29-0400 Body height 172.7 cm Ulises Goetz Jr., MD Work Phone: [facility] 05-09-2024 08:29-0400 Body mass index (BMI) [Ratio] 24.33 kg/m2 Ulises Goetz Jr., MD Work Phone: [facility] 05-09-2024 08:29-0400 Body weight 72.58 kg Ulises Goetz Jr., MD Work Phone: [facility] 05-09-2024 08:29-0400 Diastolic blood pressure 76 mm[Hg] Ulises Goetz Jr., MD Work Phone: [facility] 05-09-2024 08:29-0400 Heart rate 66 /min Ulises Goetz Jr., MD Work Phone: [facility] 05-09-2024 08:29-0400 Systolic blood pressure 118 mm[Hg] Ulises Goetz Jr., MD Work Phone: [facility] 04-24-2024 14:38-0400 Body height 172.7 cm Ulises Goetz Jr., MD Work Phone: [facility] 04-24-2024 14:38-0400 Body mass index (BMI) [Ratio] 24.33 kg/m2 Ulises Goetz Jr., MD Work Phone: [facility] 04-24-2024 14:38-0400 Body weight 72.58 kg Ulises Goetz Jr., MD Work Phone: [facility] 04-24-2024 14:38-0400 Diastolic blood pressure 80 mm[Hg] Ulises Goetz Jr., MD Work Phone: [facility] 04-24-2024 14:38-0400 Heart rate 70 /min Ulises Goetz Jr., MD Work Phone: [facility] 04-24-2024 14:38-0400 Systolic blood pressure 132 mm[Hg] Ulises Goetz Jr., MD Work Phone: [facility] 04-18-2024 14:55-0400 Body height 170.18 cm [...] 04-14-2024 17:56-0400 Respiratory rate 16 /min DO Cmaeron Ball Work Phone: [facility] 03-28-2024 12:13-0400 Body height 185.42 cm [facility] 03-28-2024 12:13-0400 Body mass index (BMI) [Ratio] 20 kg/m2 [facility] 03-28-2024 12:13-0400 Body weight 69.11 kg [facility] 03-28-2024 12:13-0400 Diastolic blood pressure 65 mm[Hg] [facility] 03-28-2024 12:13-0400 Heart rate 76 /min [facility] 03-28-2024 12:13-0400 Respiratory rate 12 /min [facility] 03-28-2024 12:13-0400 Systolic blood pressure 116 mm[Hg] [facility] 11-14-2023 11:22-0400 Respiratory rate 16 /min DO Cameron Ball Work Phone: [facility] 11-14-2023 11:22-0400 SaO2% (BldA) [Mass fraction] 95 % DO Cameron Ball Work Phone: [facility] 11-14-2023 [id number] Systolic blood pressure 115 mm[Hg] DO Cameron [...] [facility] 10-24-2023 [id number] Body height 172.72 cm DO Cameron Ball Work Phone: [facility] 10-24-2023 11:28-0400 Body mass index (BMI) [Ratio] 24.9 kg/m2 DO Cameron Ball Work Phone: [facility] 10-24-2023 [id number] Body weight 74.38 kg DO Cameron Ball [...] Body height 172.72 cm Cameron Ball Other [facility] [employer] Other 07-11-2023 13:30-0500 Body mass index (BMI) [Ratio] 25.91 kg/m2 Cameron Ball Other [employer] Other 07-11-2023 13:30-0500 Body weight 77.29 kg Cameron Ball Other [employer] Other 07-11-2023 13:30-0500 Diastolic blood pressure 83 mm[Hg] Cameron Ball Other [employer] Other 07-11-2023 13:30-0500 Respiratory rate 12 /min Cameron Ball Other [employer] Other 07-11-2023 13:30-0500 Systolic blood pressure 141 mm[Hg] Cameron Ball Other [employer] Other 03-07-2023 13:30-0400 Body height 172.72 cm Cameron Ball Other [employer] Other 03-07-2023 13:30-0400 Body mass index (BMI) [Ratio] 25.39 kg/m2 Cameron Ball Other [employer] Other 03-07-2023 13:30-0400 Body weight 75.75 kg Cameron Ball Other [facility] [employer] Other 03-07-2023 13:30-0400 Diastolic blood pressure 66 mm[Hg] Cameron Ball Other [facility] [employer] Other 03-07-2023 13:30-0400 Systolic blood pressure 149 mm[Hg] Cameron Ball Other [facility] [employer] Other 02-26-2023 10:24-0400 Diastolic blood pressure 67 [...] Body height 172.72 cm Cameron Ball Other [facility] [employer] Other 02-13-2023 09:30-0400 Body mass index (BMI) [Ratio] 24.78 kg/m2 Cameron Ball Other [facility] [employer] Other 02-13-2023 09:30-0400 Body weight 73.94 kg Cameron Ball Other [employer] Other 02-13-2023 09:30-0400 Diastolic blood pressure 63 mm[Hg] Cameron Ball Other [employer] Other 02-13-2023 09:30-0400 Respiratory rate 12 /min Cmaeron Ball Other [employer] Other 02-13-2023 09:30-0400 Systolic blood pressure 111 mm[Hg] Cameron Ball Other [employer] Other 01-02-2023 14:00-0400 Body height 172.72 cm Cameron Ball Other [employer] Other 01-02-2023 14:00-0400 Body mass index (BMI) [Ratio] 25.48 kg/m2 Cameron Ball Other [employer] Other 01-02-2023 14:00-0400 Body weight 76.02 kg Cameron Ball Other [employer] Other 01-02-2023 14:00-0400 Diastolic blood pressure 63 mm[Hg] Cameron Ball Other [employer] Other 01-02-2023 14:00-0400 Respiratory rate 12 /min Cameron Ball Other [employer] Other 01-02-2023 14:00-0400 Systolic blood pressure 118 mm[Hg] Cameron Ball Other [employer] Other 11-01-2022 15:45-0400 Body height 172.72 cm Cameron Ball Other [employer] Other 11-01-2022 15:45-0400 Body mass index (BMI) [Ratio] 25.91 kg/m2 Cameron Ball Other [employer] Other 11-01-2022 15:45-0400 Body weight 77.29 kg Cameron Ball Other [employer] Other 11-01-2022 15:45-0400 Diastolic blood pressure 74 mm[Hg] Cameron Ball Other [employer] Other 11-01-2022 15:45-0400 Respiratory rate 16 /min Cameron Ball Other [employer] Other 11-01-2022 15:45-0400 Systolic blood pressure 118 mm[Hg] Cameron Ball Other [employer] Other 08-29-2021 15:00-0500 Body height 172.72 cm Hiren Da Silva Other [employer] Other 08-29-2021 15:00-0500 Body mass index (BMI) [Ratio] 28.28 kg/m2 Hiren Da Silva Other [employer] Other 08-29-2021 15:00-0500 Body weight 84.37 kg Hiren Da Silva Other [employer] Other 08-03-2021 09:30-0500 Body height 172.72 cm Hiren Da Silva Other [employer] Other 08-03-2021 09:30-0500 Body mass index (BMI) [Ratio] 28.28 kg/m2 Hiren Da Silva Other [employer] Other 08-03-2021 09:30-0500 Body weight 84.37 kg Hiren Da Silva Other [facility] [employer] Other Encounters Encounter Date Encounter Type Care Provider Facility Start: 10-24-2024 End: 10-24-2024 Telephone encounter Neeru Alcantar [facility] Start: 10-17-2024 End: 10-17-2024 ambulatory [facility] Work Phone: Start: 10-17-2024 End: 10-17-2024 Patient encounter procedure [facility] Work Phone: Start: 10-10-2024 End: 10-10-2024 Clinical Support [facility] Comment on above: Benign prostatic hyp erplasia with urinary hesitancy (Primary Dx) Start: 10-10-2024 End: 10-10-2024 amb[address] UL[address] GOETZ JR [facility] Start: 09-12-2024 End: 09-12-2024 Clinical Support Ulises Goetz MD Work Phone: [facility] Comment on above: Benign prostatic hyp erplasia with urinary hesitancy (Primary Dx) Start: 09-12-2024 End: 09-12-2024 [address] GOET[address] [facility] Start: 08-25-2024 End: 08-25-2024 ambulatory Camreon Ball DO Work Phone: [facility] Work Phone: Start: 08-25-2024 End: 08-25-2024 Patient encounter procedure Cameron Ball DO Work Phone: [facility] Work Phone: Start: 08-13-2024 End: 08-13-2024 ambulatory Lisa Walter MD Work Phone: [facility] Comment on above: Benign prostatic hyp erplasia with urinary hesitancy (Primary Dx) Start: 07-15-2024 End: 07-15-[address] [facility] Start: 07-14-2024 End: 07-14-2024 Patient encounter procedure Cameron Chambers DO Work Phone: [facility] Work Phone: Start: 07-12-2024 Patient encounter procedure Cameron Chambers DO Work Phone: [facility] Start: 07-11-2024 Non-patient / Non-visit Benjam in Trish DO Work Phone: [facility] Work Phone: Start: 06-20-2024 End: 06-20-2024 Office outpatient visit 15 minutes Ulises Goetz MD Work Phone: [facility] Comment on above: Elevated PSA (Primar y Dx); Benign prostatic hyperplasia with urinary hesitancy; Urologic disorders Start: 06-20-2024 End: 06-20-2024 ambulatory ULISES GOETZ [facility] Start: 06-18-2024 End: 06-18-2024 Telephone encounter Camila Kidd LPN [facility] Start: 06-18-2024 End: 06-18-2024 ambulatory CAMERON CHAMBERS [facility] Start: 06-12-2024 Non-patient / Non-visit Benjam in Trish DO Work Phone: [facility] G[facility] Work Phone: Start: 06-12-2024 End: 06-12-2024 Admission to same day surgery center Cameron Chambers DO Work Phone: [facility] Work Phone: Start: 06-12-2024 End: 06-12-2024 ambulatory Cameron Ball DO Work Phone: [facility] Work Phone: Start: 05-21-2024 End: 05-21-2024 ambulatory DO Cameron Chambers Work Phone: [facility] Work Phone: Start: 05-21-2024 End: 05-21-2024 Patient encounter procedure DO Cameron Chambers Work Phone: [facility] Work Phone: Start: 05-16-2024 End: 05-16-2024 Telephone encounter Alexander Damon MD Work Phone: [facility] Start: 05-13-2024 End: 05-13-2024 Bamboo flowsheet Alexander Damon MD Work Phone: [facility] Start: 05-13-2024 End: 05-13-2024 Bamboo flowsheet Alexander Damon MD Work Phone: [facility] Start: 05-13-2024 End: 05-13-2024 Office outpatient new 45 minutes Alexander Damon MD Work Phone: [facility] Comment on above: Pharyngoesophageal d ysphagia (Primary Dx) Start: 05-13-2024 End: 05-13-2024 ambulatory ALEXANDER DAMON Not Available Start: 05-09-2024 End: 05-09-2024 Office outpatient visit 25 minutes Ulises Goetz MD Work Phone: [facility] Comment on above: Urologic disorders ( Primary Dx); Benign prostatic hyperplasia with urinary hesitancy; Elevated PSA Start: 05-09-2024 End: 05-09-2024 [address] [facility] Start: 05-06-2024 End: 05-06-2024 Telephone encounter Ulises Goetz MD Work Phone: [facility] Start: 05-06-2024 End: 05-06-2024 ambulatory ULISES GOETZ JR [facility] Start: 04-24-2024 End: 04-24-2024 Office outpatient visit 25 minutes Ulises Goetz MD Work Phone: [facility] Comment on above: Urinary retention (P rimary Dx); Urologic disorders; Benign prostatic hyperplasia with urinary hesitancy; Elevated PSA Start: 04-24-2024 ambulatory DO Cameron jimenez Work Phone: [facility] Work Phone: Start: 04-24-2024 Non-patient / Non-visit DO Nestor Chambers Work Phone: [facility] Work Phone: Start: 04-19-2024 ambulatory CAMERON Khalif CHAMBERS [facility] Start: 04-18-2024 End: 04-18-2024 ambulatory DO Cameron Chambers Work Phone: [facility] Work Phone: Start: 04-18-2024 End: 04-18-2024 Patient encounter procedure DO Cameron Chambers Work Phone: [facility] Work Phone: Start: 04-18-2024 End: 04-18-2024 Telephone encounter [facility] Start: 04-17-2024 End: 04-17-2024 Telephone encounter Camila Kidd LPN [facility] Start: 04-14-2024 End: 04-14-2024 Emergency department patient visit DO Cameron Chambers Work Phone: [facility] Work Phone: Start: 04-13-2024 Non-patient / Non-visit DO Nestor Chambers Work Phone: [facility] Work Phone: Start: 03-28-2024 End: 03-28-2024 ambulatory [facility] Work Phone: Start: 03-28-2024 End: 03-28-2024 Patient encounter procedure [facility] Work Phone: Start: 01-11-2024 End: 01-11-2024 ambulatory DO Cameron Ball Work Phone: [facility] Work Phone: Start: 01-11-2024 End: 01-11-2024 Patient encounter procedure DO Cameron Ball Work Phone: [facility] Work Phone: Start: 01-11-2024 ambulatory Damon PATEL Facility :[facility] Start: 01-02-2024 Non-patient / Non-visit DO Nestor carey Ball Work Phone: [facility] Work Phone: Start: 12-06-2023 End: 12-06-2023 ambulatory DO Cameron Ball Work Phone: [facility] Work Phone: Start: 12-06-2023 End: 12-06-2023 Patient encounter procedure DO Cameron Ball Work Phone: [facility] [employer] [facility] Work Phone: Start: 12-04-2023 Non-patient / Non-visit DO Nestor carey Ball Work Phone: [facility] [employer] [facility] Work Phone: Start: 11-30-2023 End: 11-30-2023 ambulatory Syed Buchanan Facility:CD:[id number] Start: 11-29-2023 End: 12-01-2023 Non-patient / Non-visit DO Cameron Ball Work Phone: [facility] G[facility] Work Phone: Start: 11-28-2023 End: 12-01-2023 Evaluation and management of inpatient DO Cameron Ball Work Phone: [facility] Work Phone: Start: 11-28-2023 Non-patient / Non-visit DO Nestor carey Ball Work Phone: [facility] Work Phone: Start: 11-14-2023 End: 11-14-2023 Admission to same day surgery center DO Cameron Ball Work Phone: [facility] [place] Start: 11-14-2023 End: 11-14-2023 ambulatory DO Cameron Ball Work Phone: [facility] Work Phone: Start: 11-14-2023 Non-patient / Non-visit DO Nestor cherry Ball Work Phone: [facility] Neurosurgery Work Phone: Start: 11-07-2023 End: 11-07-2023 Patient encounter procedure DO Cameron Ball Work Phone: [facility]Pre-Surgical Testing Work Phone: Start: 11-07-2023 End: 11-07-2023 ambulatory DO Cameron Ball Work Phone: [facility] Work Phone: Start: 11-07-2023 Encounter for preprocedural laboratory examination John Adam [facility] Start: 10-24-2023 Patient encounter status DO Be njamin Ball Work Phone: [facility] Start: 10-24-2023 End: 10-24-2023 ambulatory DO Cameron Ball Work Phone: [facility] Work Phone: Start: 10-24-2023 End: 10-24-2023 Encounter for preprocedural cardiovascular examination DO Cameron Ball Work Phone: [facility] Start: 10-24-2023 End: 10-24-2023 Patient encounter procedure DO Cameron Ball Work Phone: [facility] Work Phone: Start: 10-18-2023 End: 10-18-2023 ambulatory DO Cameron Ball Work Phone: [facility] Work Phone: Start: 10-18-2023 End: 10-18-2023 Patient encounter procedure DO Cameron Ball Work Phone: [facility] Neuro[facility] Work Phone: Start: 10-11-2023 End: 10-11-2023 Patient encounter procedure DO Cameron Ball Work Phone: [facility] [place] Work Phone: Start: 10-11-2023 End: 10-11-2023 ambulatory DO Cameron Ball Work Phone: [facility] Work Phone: Start: 10-10-2023 End: 10-10-2023 Patient encounter procedure DO Cameron Ball Work Phone: [facility] Neuro[facility] Work Phone: Start: 09-26-2023 End: 09-26-2023 Patient encounter procedure DO Cameron Ball Work Phone: [facility] Work Phone: Start: 07-11-2023 End: 07-11-2023 ambulatory Cameron Chambers Other [employer] Other Start: 07-11-2023 Patient encounter procedure Cameron Chambers [facility] Start: 07-01-2023 End: 07-01-2023 ambulatory Cameron Chambers Other [employer] Other Start: 07-01-2023 Telephone encounter Cameron PAGE G [facility] Start: 03-30-2023 End: 03-30-2023 ambulatory Asim Mathur Other [employer] Other Start: 03-30-2023 Telephone encounter Asim Crenshaw [employer] Start: 03-07-2023 End: 03-07-2023 ambulatory Cameron Chambers Other [employer] Other Start: 03-07-2023 Office outpatient vi sit 25 minutes Cameron Ball [facility] Start: 03-05-2023 End: 03-05-2023 ambulatory Cameron Chambers Other [employer] Other Start: 03-05-2023 Telephone encounter Cameron Chambers [facility] Start: 02-26-2023 Telephone encounter Cameron Chambers [facility] Start: 02-26-2023 End: 02-26-2023 Admission to same day surgery center DO Cameron Chambers Work Phone: [facility] Work Phone: Start: 02-26-2023 End: 02-26-2023 ambulatory DO Cameron Chambers Work Phone: [facility] Work Phone: Start: 02-13-2023 End: 02-13-2023 ambulatory Cameron Chambers Other [employer] Other Start: 02-13-2023 Office outpatient vi sit 15 minutes Cameron Ball [facility] Start: 01-10-2023 End: 01-10-2023 ambulatory Imad Asaad Other [employer] Other Start: 01-10-2023 Telephone encounter Imad Asaad [facility] [employer] Start: 01-02-2023 End: 01-02-2023 ambulatory Cameron Chambers Other [employer] Other Start: 01-02-2023 Office outpatient vi sit 25 minutes Cameron Ball [facility] Start: 11-01-2022 End: 11-01-2022 ambulatory Cameron Chambers Other [employer] Other Start: 11-01-2022 Office outpatient vi sit 25 minutes Cameron Ball [facility] Start: 10-25-2022 End: 10-26-[address] CAMERON CHAMBERS Facility: Start: 10-20-2022 End: 10-20-2022 ambulatory Cameron Chambers Other [employer] Other Start: 10-20-2022 Telephone encounter [facility] Start: 10-18-2022 End: 10-18-2022 ambulatory Cameron Chambers Other [employer] Other Start: 10-18-2022 Telephone encounter [facility] Start: 07-20-2022 End: 07-20-[address] CAMERON CHAMBERS Facility:[facility] Start: 07-18-2022 End: 07-19-[address] CAMERON CHAMBERS Facility:[facility] Start: 07-04-2022 Adult health examination Imad Asaad Other [employer] Other Start: 07-04-2022 Encounter for genera l adult medical examination without abnormal findings Cameron Chambers Other [employer] Other Start: 12-27-2021 End: 12-28-[address] CAMERON CHAMBERS Facility:[facility] Start: 12-16-2021 End: 12-17-[address] DOCTOR GLASS Facility:[facility] Start: 08-29-2021 End: 08-29-2021 ambulatory Hiren Da Silva Other [employer] Other Start: 08-29-2021 Office outpatient vi sit [address] [facility] Neuro[facility] Start: 08-03-2021 End: 08-03-2021 ambulatory Hiren Da Silva Other [employer] Other Start: 08-03-2021 Office outpatient vi sit [address] [facility] Neuro[facility] Procedures Date Procedure Procedure Detail Performing Clinician Start: 06-12-2024 Esophagogastroduodenoscopy Cameron Chambers DO Work Phone: Start: 05-09-2024 Follow-up visit Follow-up ULISES GOETZ JR Start: 04-14-2024 CT of abdomen and pelvis without contrast DO Cameron Chambers Work Phone: Start: 04-14-2024 Bacteria identified in Urine by Culture DO Cameron Chambers Work Phone: Start: 04-14-2024 Urine culture DO Cameron Ball Work Phone: Start: 11-30-2023 Urine culture DO Cameron Ball Work Phone: Start: 11-29-2023 Antibody screen Cameron Chambers Comment on above: Order Comment: Transfuse now? N Result Comment: PERF ORMED BY: [facility] [address] [place] [address] PATHOLOGIST [employer] JAMISON ANDINO M.D. Start: 11-14-2023 Decompression of median nerve DO Sher n Ball Work Phone: Start: 10-11-2023 X-ray of lumbar spine, six views including bending views DO Cameron Chambers Work Phone: Start: 10-11-2023 X-ray of cervical spine DO Cameron Chambers Work Phone: Start: 02-26-2023 Esophagogastroduodenoscopy DO Cameron Morales all Work Phone: Start: 05-01-2016 Screening for malignant neoplasm of colon Imad Asaad Other Depression screening Imad As aad Other Plan of Treatment Date Care Activity Detail Author Start: 01-14-2032 DTaP,Tdap and Td Vaccines (2 - Td or Tdap) DTaP,Tdap and Td Vaccines (2 - Td or Tdap) [facility] Start: 06-20-2025 Tobacco Screening Tobacco Screening [facility] Start: 05-09-2025 Adult BMI Screening Adult BMI Screening [facility] Start: 05-09-2025 Tobacco Screening Tobacco Screening [facility] Start: 04-24-2025 Adult BMI Screening Adult BMI Screening [facility] Start: 04-24-2025 Tobacco Screening Tobacco Screening [facility] Start: 11-11-2024 End: 11-11-2024 Clinical Support 11/11/2024 10:30 AM EDT Clinical Support [facility] [address] [facility] [place] [address] Harshil Palencia MD [address] [place] [id number] [facility] Start: 11-07-2024 End: 11-07-2024 Patient encounter procedure 11/07/2024 9:30 AM EDT Office Visit [facility] [address] [place] [id number] Ulises Geotz Jr., MD [address] [place] [id number] [facility] Start: 10-10-2024 End: 10-10-2024 Clinical Support 10/10/2024 11:00 AM EDT Clinical Support [facility] [address] [place] [phone] Ulises Goetz Jr., MD [address] [place] [id number] [facility] Start: 09-12-2024 End: 09-12-2024 Clinical Support 09/12/2024 10:00 AM EST Clinical Support [facility] [address] [place] [phone] Ulises Goetz Jr., MD [address] [place] [id number] [facility] Start: 07-15-2024 End: 07-15-2024 ambulatory 07/15/2024 10:45 AM EST Support Visit [facility] [address] [place] [id number] Harshil Palencia MD [address] [place] [address] [facility] Start: 06-20-2024 End: 06-20-2024 Patient encounter procedure 06/20/2024 8:45 AM EST Office Visit [facility] [address] [place] [address] A [facility] [place] [id number] Ulises Goetz Jr., MD [facility] [place] [address] [facility] Start: 06-18-2024 End: 06-18-2024 Patient encounter procedure 06/18/2024 2:20 PM EST Office Visit [facility] [address] [place] [address] Alexander Damon MD [address] [place] [address] [facility] Start: 06-12-2024 [facility] Start: 05-30-2024 End: 05-09-2025 Prostatic specific antigen, diagnostic Prostatic specific antigen, diagnostic Lab Routine Benign prostatic hyperplasia with urinary hesitancy Elevated PSA Expected: 05/30/2024 (Approximate), Expires: 05/09/2025 [facility] Work Phone: Comment on above: Expected: 05/30/2024 (Approximate), Expi res: 05/09/2025 Start: 05-21-2024 Patient referral [facility] Work Phone: Start: 05-13-2024 End: 05-13-2024 Patient encounter procedure 05/13/2024 10:50 AM EDT Office Visit [facility] [address] [place] [phone] Alexander Damon MD [address] [place] [address] Arrived [facility] Comment on above: Arrived Start: 05-09-2024 End: 05-09-2024 Patient encounter procedure 05/09/2024 8:30 AM EDT Office Visit [facility] [address] [place] [address] [place] [address] Ulises Geotz Jr., MD [address] [place] [address] [facility] Start: 05-05-2024 Tobacco Counseling Tobacco Counseling [facility] Start: 04-24-2024 End: 04-24-2024 Patient encounter procedure 04/24/2024 2:15 PM EDT Office Visit [facility] [address] [place] [address] [address] [place] [address] Ulises Goetz Jr., MD [address] [place] [address] [facility] Start: 04-24-2024 End: 04-24-2025 Cystometrogram Cystometrogram Procedure Routine Urinary retention Expected: 04/24/2024 (Approximate), Expires: 04/24/2025 [facility] Work Phone: Comment on above: Expected: 04/24/2024 (Approximate), Expi res: 04/24/2025 Start: 04-24-2024 Patient referral [facility] Work Phone: Start: 04-14-2024 Bacteria identified in Urine by Culture [facility] Start: 03-30-2024 COVID-19 Vaccine ( season) COVID-19 Vaccine () [facility] Start: 03-30-2024 COVID-19 Vaccine ( season) COVID-19 Vaccine ( season) [facility] Start: 03-30-2024 Influenza vaccination [facility] Start: 12-23-2023 Adult BMI Screening Adult BMI Screening [facility] Start: 12-23-2023 Tobacco Screening Tobacco Screening [facility] Start: 12-01-2023 [facility] Start: 11-30-2023 Bacteria identified in Urine by Culture Urine Culture [facility] Start: 11-30-2023 Referral to urologist [facility] Start: 11-28-2023 End: 11-28-2023 [facility] Start: 11-28-2023 Referral to anglesmith [facility] Start: 11-28-2023 Hospital admission [facility] Start: 11-14-2023 End: 11-14-2023 [facility] Start: 10-24-2023 EKG 12 channel panel [facility] Start: 10-19-2023 Patient referral [facility] Work Phone: Start: 02-26-2023 [facility] Start: 05-10-2016 Administration of varicella zoster vaccine Zoster (Shingles) Vaccine (2 of 3) [email or web address] Start: 2004 Fall Risk Screening [facility] Start: 1989 Administration of varicella zoster vaccine Zoster (Shingles) Vaccine (1 of 2) [email or web address] Start: 1951 Depression Screening [facility]ening [email or web address] Start: 1940 Medicare Annual Wellness Visit Medicare Annual Wellness [facility] Start: 1940 Tobacco Counseling Tobacco Counseling [facility] INSERT,TEMP INDWELLI NG BLAD CATH,SIMPLE INSERT,TEMP INDWELLING BLAD CATH,SIMPLE Procedures Routine Benign prostatic hyperplasia with urinary hesitancy Ordered: 08/13/2024 [facility] Work Phone: Comment on above: Ordered: 08/13/2024 INSERT,TEMP INDWELLI NG BLAD CATH,SIMPLE INSERT,TEMP INDWELLING BLAD CATH,SIMPLE Procedures Routine Benign prostatic hyperplasia with urinary hesitancy Ordered: 09/12/2024 [facility] Work Phone: Comment on above: Ordered: 09/12/2024 INSERT,TEMP INDWELLI NG BLAD CATH,SIMPLE INSERT,TEMP INDWELLING BLAD CATH,SIMPLE Procedures Routine Benign prostatic hyperplasia with urinary hesitancy Ordered: 10/10/2024 [facility] Work Phone: Comment on above: Ordered: 10/10/2024 MR Cervical spine WO contrast [facility] MR Lumbar spine WO contrast [facility] Patient Education [facility] Work Phone: Patient referral [facility] Work Phone: [facility] Immunizations Immunization Date Immunization Notes Care Provider Fantasma yen 05-21-2024 influenza, high dose seasonal, preservative-free Cameron Ball DO Work Phone: [facility] 07-11-2023 Prevnar 20 Cameron Chambers Other [facility] 04-06-2023 influenza virus vaccine, unspecified formulation DO Cameron Chambers Work Phone: [facility] 04-06-2023 influenza, high dose seasonal, preservative-free Cameron Chambers Other [employer] [facility] [employer] Other 05-10-2022 influenza virus vaccine, split virus (incl. purified surface antigen) Cameron Chambers Other [employer] Other 05-10-2022 influenza virus vaccine, unspecified formulation DO Cameron Chambers Work Phone: [facility] 01-13-2022 tetanus toxoid, reduced diphtheria toxoid, and acellular pertussis vaccine, adsorbed DO Cameron Chambers Work Phone: [facility] 05-25-2021 COVID-19 mRNA-1273 (Moderna) DO Cameron Chambers Work Phone: [facility] 04-12-2021 influenza virus vaccine, split virus (incl. purified surface antigen) Cameron Chambers Other [employer] Other 04-12-2021 influenza virus vaccine, unspecified formulation DO Cameron Chambers Work Phone: [facility] 09-22-2020 COVID-19 Vaccine Moderna - Documentation Purposes Only Cameron Chambers Other [facility] 08-25-2020 COVID-19 Vaccine Moderna - Documentation Purposes Only Cameron Chambers Other [facility] 06-23-2020 influenza virus vaccine, split virus (incl. purified surface antigen) Cameron Chambers Other [facility] [employer] Other 06-23-2020 influenza virus vaccine, unspecified formulation DO Cameron Chambers Work Phone: [facility] 06-23-2020 Seasonal trivalent influenza vaccine, adjuvanted, preservative free DO Cameron Chambers Work Phone: [facility] 05-14-2019 influenza virus vaccine, split virus (incl. purified surface antigen) Cameron Chambers Other [facility] [employer] Other 05-14-2019 influenza virus vaccine, unspecified formulation DO Cameron Chambers Work Phone: [facility] 04-29-2019 influenza, high dose seasonal, preservative-free DO Cameron Chambers Work Phone: [facility] 05-15-2018 influenza virus vaccine, split virus (incl. purified surface antigen) Cameron Chambers Other [facility] [employer] Other 05-15-2018 influenza virus vaccine, unspecified formulation DO Cameron Chambers Work Phone: [facility] 05-15-2018 Seasonal trivalent influenza vaccine, adjuvanted, preservative free DO Cameron Chambers Work Phone: [facility] 04-17-2018 pneumococcal polysaccharide vaccine, 23 valent Alexander Damon MD Work Phone: [facility] 04-05-2017 influenza virus vaccine, split virus (incl. purified surface antigen) Cameron Chambers Other [facility] [employer] Other 04-05-2017 influenza virus vaccine, unspecified formulation DO Cameron Chambers Work Phone: [facility] 04-05-2017 influenza, high dose seasonal, preservative-free DO Cameron Chambers Work Phone: [facility] 05-01-2016 pneumococcal conjugate vaccine, 13 valent Cameron Chambers Other [facility] 04-27-2016 influenza virus vaccine, split virus (incl. purified surface antigen) Cameron Chambers Other [facility] [employer] Other 04-27-2016 influenza virus vaccine, unspecified formulation DO Cameron Chambers Work Phone: [facility] 04-27-2016 influenza, high dose seasonal, preservative-free DO Cameron Chambers Work Phone: [facility] 03-15-2016 zoster vaccine, live Alexander Damon MD Work Phone: [facility] [employer] 03-15-2016 zoster vaccine, unspecified formulation Ulises Goetz Jr., MD Work Phone: [facility] 04-30-2015 influenza, high dose seasonal, preservative-free Alexander Damon MD Work Phone: [facility] [employer] NEGATED: Highlighted row has not occurred! 9 influenza, high dose seasonal, preservative-free Patient Objection Hiren Da Silva Other [facility] [employer] Other NEGATED: Highlighted row has not occurred! 9 influenza virus vaccine, unspecified formulation DO Cameron Chambers Work Phone: [facility] Payers Date Payer Category Payer Medicare [id number] 2023 Self-pay [id number] 2023 Unknown [id number] 2021 Medicaid AETNA MEDICARE A DVANTAGE [id number] 2021 Medicare AETNA MEDICARE A ETNA MEDICARE PLAN (PPO) [id number] 2021-Present [phone] [address] [place] [address] [id number] 2021 Medicare HMO AETNA MEDICARE [id number] 2018 Medicare [id number] 2018 Medicare [id number] 1959 Medicare [id number] [id number] 1939 Unknown [id number] 2.16.840.1.087155.3.579.2.593 1939 Unknown [id number] 2.16.840.1.225423.3.579.2.593 1939 Unknown [id number] 2.16.840.1.261445.3.579.2.593 1939 Unknown [id number] 2.16.840.1.471264.3.579.2.593 1939 Unknown [id number] 2.16.840.1.104457.3.579.2.593 1939 Unknown [id number] 2.16.840.1.063512.3.579.2.727 1939 Unknown [id number] 2.16.840.1.003552.3.579.2.727 1939 Unknown [id number] 2.16.840.1.288937.3.579.2.1259 1939 Unknown [id number] 2.16.840.1.317845.3.579.2.1286 1939 Unknown [id number] 2.16.840.1.969366.3.579.2.1286 1939 Unknown [id number] 2.16.840.1.493604.3.579.2.1286 1939 Unknown [id number] 2.16.840.1.415021.3.579.2.1286 1939 Unknown [id number] 2.16.840.1.209943.3.579.2.1286 1939 Unknown [id number] 2.16.840.1.325971.3.579.2.1286 1939 Unknown [id number] 2.16.840.1.230330.3.579.2.1286 1939 Unknown [id number] 2.16.840.1.572426.3.579.2.1286 1939 Unknown [id number] 2.16.840.1.702074.3.579.2.1286 1939 Unknown [id number] 2.16.840.1.662714.3.579.2.1286 Unknown HCAP/HFA/FAP Active [id number] Unknown [id number] 2.16.840.1.776080.3.579.2.531 Unknown [id number] 2.16.840.1.685908.3.579.2.531 Unknown [id number] 2.16.840.1.503914.3.579.2.531 Unknown [id number] 2.16.840.1.905320.3.579.2.531 Unknown [id number] 2.16.840.1.823496.3.579.2.531 Unknown [id number] 2.16.840.1.387118.3.579.2.531 Unknown [id number] 2.16.840.1.943500.3.579.2.531 Social History Date Type Detail Facility Unknown if ever smoked [facility] Other Start: 09-09-2020 End: 05-13-2024 Sex Assigned At [facility] Start: 02-26-2023 Tobacco smoking status NVIS Ex-smoker (finding) [facility] Start: 1940 Sex Assigned At Male F [facility] Start: 10-24-2023 End: 06-12-2024 Tobacco smoking status NHIS Smoker (finding) [facility] Tobacco smoking status NVIS Tobacco smoking consumption unknown [facility] Start: 1940 Sex assigned at Not on file P [facility] Start: 08-25-2022 End: 05-13-2024 Tobacco smoking status NVIS Smokes tobacco daily [facility] History of tobacco use Cigar Smoker [facility] Start: 08-25-2022 End: 05-13-2024 Tobacco use and exposure Smokeless tobacco non-user [facility] Start: 05-13-2024 Alcoholic beverage intake Ex-drinker (finding) [facility] Start: 09-09-2020 End: 05-13-2024 History of Social function [facility] Start: 03-01-2019 End: 06-12-2024 Sex Male (finding) [facility] Start: 05-09-2024 End: 06-20-2024 Alcoholic beverage intake Current drinker of alcohol (finding) [facility] Childcare Unknown [facility] Start: 03-01-2019 Alcohol Comment daily [facility] Medical Equipment Procedure Code Equipment Code Equipment Origin al Text Equipment Identifier Dates Capsule endoscopy, for patency of lumen evaluation Video capsule endoscopy system ()[id number] FDA Start: 04-11-2023 Spinal fixation plate, non-bioabsorbable ()[id number] FDA Start: 04-27-2020 Intervertebral-b od y internal spinal fixation system ()[id number] FDA Start: 04-27-2020 Intervertebral-b od y internal spinal fixation system ()[id number] FDA Start: 04-27-2020 Intervertebral-b od y internal spinal fixation system ()[id number] FDA Start: 04-27-2020 Bone-screw internal spinal fixation system, non-sterile ()[id number] FDA Start: 04-27-2020 Bone-screw internal spinal fixation system, non-sterile ()[id number] FDA Start: 04-27-2020 Goals Date Patient Goal Desired Activity /State Functional Status Date Assessment Result Facility 12-01-2023 Functional status Patient at Baseline [facility] Work Phone: Mental Status Date Assessment Result Facility 12-01-2023 Cognitive function Cognitive Sta tus Patient at Baseline [facility] Work Phone: Clinical Notes 08-03-2021 to 10-24-2024 Telephone Encounter - Neeru Alcantar CMA - 10/24/2024 3:32 PM EDTTelephone Encounter - Gisella Stock APRN-UTILITY SYSTEM OPERATOR - 10/24/2024 3:32 PM EDTGregor Keyshawn Goetz Jr., MD - 10/10/2024 11:00 AM EDT Note Date & Type Note Facility 10-24-2024 Miscellaneous Notes Formattin g of this note might be different from the original. Pt's calls asking if there is anything that they can put on pt's penis since it is so sore. She says it is the tip of penis and over the foreskin. She says they have tried several things but nothing is really working. Not sure everything they have tried. They can do Vaseline or Aquaphor ointment. Sometimes this helps. It appears he was suppose to see Dr. Goetz back in 2 months after his last appointment 05/31/2024. He has been seen by treatment nurse for catheter exchange only. I would recommend he be seen in the office with Dr. Goetz. Please schedule him accordingly Pt's notified. Transferred [facility] [place] [facility] [place] appt. documented in this encounter [facility] 10-24-2024 Telephone encount er Note Pt's calls asking if there is anything that they can put on pt's penis since it is so sore. She says it is the tip of penis and over the foreskin. She says they have tried several things but nothing is really working. [facility] 10-24-2024 Telephone encount er Note Not sure everything they have tried. They can do Vaseline or Aquaphor ointment. Sometimes this helps. It appears he was suppose to see Dr. Goetz back in 2 months after his last appointment 05/31/2024. He has been seen by treatment nurse for catheter exchange only. I would recommend he be seen in the office with Dr. Goetz. Please schedule him accordingly [facility] Work Phone: 10-24-2024 Telephone encount er Note Pt's notified. Transferred her [place] [facility] [place] make appt. [facility] 10-10-2024 History of Presen t illness Narrative Pt. Arrived at this office for a regular monthly catheter change. Pt. Was prepped for catheter change with 10 mL NS being taken out of the balloon port, and 18 fr coude catheter being removed with no difficulties. Catheter tip is in tact. Pt.'s meatus was cleansed with betadine swabs and 2% lidocaine urojet instilled for comfort. #18 fr coude wiley catheter placed without difficulty draining clear yellow urine. 10 cc's to placement balloon. wiley catheter attached to leg bag. Night bag given. Camila Kidd LPN Ordering Physician: Dr. Colleen MD Supervising Physician: Dr. Colleen MD documented in this encounter [facility] 09-12-2024 History of Presen t illness Narrative Pt. Arrives at this office and states that he is not having any issues with his catheter at this time. Pt. Ambulated himself onto the treatment table. While taking the Pt.'s leg bag off of the right thigh, this nurse did notice that the tip of the penis is starting to get slightly pink. This nurse did suggest a thin layer of antibiotic ointment on the tip of the penis when he notices it starting to get like that. He stated he was going to ask, although he is not in pain, he noticed just the other day that he is starting to get irritated. Suggested if this doesn't help then to contact the office and we can send Dr. Colleen MD a message to see what he suggests. Pt. Stated he understood. 10 mL removed from the balloon port. 18 fr coude catheter removed with no difficulties. The meatus was cleansed with betadine swabs and 2% lidocaine urojet instilled for comfort. #18 fr coude catheter placed without difficulty draining yellow urine. 10 cc's to placement balloon. wiley catheter attached to leg bag. Night bag and leg bag given to take home. Camila Kidd LPN Ordering Physician: Dr. Colleen MD Supervising Physician: Dr. Colleen MD documented in this encounter [facility] 08-25-2024 Evaluation note Diagnosis Onset Date Resolution Cervical spondylosis with radiculopathy acute August 25, 2024 1:49pm Hypertension acute July 1:49pm Lumbar spondylosis with myelopathy acute August 25 1:49pm Opiate analgesic use agreement exists acute August 25, 2 025 1:49pm Primary osteoarthritis, left shoulder acute August 25 1:49pm Left shoulder pain deleted Januar y 2024 1:49pm Cervical spondylosis with radiculopathy acute October 17, 2 025 1:26pm Hypertension acute October 17, 2024 1:26pm [facility] Work Phone: 1(641) 754-813101-15-2025 History of Present illness Narrative* Sarita Leon - 08/13/2024 10:00 AM EST The meatus was cleansed with betadine swabs and 2% lidocaine urojet instilled for comfort. #18 f coude wiley catheter placed without difficulty draining clear yellow urine. 10 cc's to placement balloon. wiley catheter attached to leg bag. Night bag given. BRENT Jurado Ordering Physician Dr. Colleen MD Supervising physician Dr French MD [facility] [id number] Evaluation note* Diagnosis Onset Date Resolution Status Admit Date Benign prostatic hyperplasia with lower urinary tract symptoms acute Dec 2023 2:18pm Gastroesophageal reflux dise ase with esophagitis without hemorrhage acute July 14, 2 024 2:18pm Hypercholesterolemia acute Dece mb2023 2:18pm Hypertension acute June 2:18pm Lumbar spondylosis with myelopathy a cute July 14, 2024 2:18pm Medicare annual wellness vis it, subsequent acute July 14, 2 024 2:18pm Hypertension acute July 1:49pm Primary osteoarthritis, left shoulder acute August 25 1:49pm [facility] Work Phone: 1(242) 288-779511-22-2024 History of Present illness Narrative* Ulises Goetz Jr., MD - 06/20/2024 8:45 AM EST Images from the original note were not included. [address] [place] [address] A [facility] [address] Patient: Rishi Babcock Date of : 1940 Encounter Date: 06/20/2024 History of Present Illness: Chief Complaint: Follow up benign prostatic hyperplasia, retention, and elevated PSA. See below Urinalysis today: No results for input(s): EXTPOCURCO , EXTPOCURCH , EXTPOCAPP , EXTPOCURBS , EXTPOCURBIL , EXTPOCUKET , EXTPOCUSPG , EXTPOCUHGB , EXTPOCUPRO , EXTPOCUURO , EXTPOCULEU , EXTPOCUNIT , EXTPOCUWBC , EXTPOCUBLD , EXTPOCURBC , EXTPOCUCRY , EXTPOCUBAC , EXTPOCUTREP , EXTPOCUPH , EXTPOCUL EE in the last 72 hours. Last BUN and creatinine: No results found for: BUN No results found for: CREATININE Last PSA: Lab Results Component Value Date PSA 9.30 (H) 06/18/2024 PSA 10.58 (H) 10/04/2022 PSA 13.26 (H) 09/07/2022 No results found for: PROSTATICSP Past Medical, Family, and Social History Update: The following portions of the patient's history were reviewed and updated as appropriate: allergies, current medications, past family history, past medical history, past social history, past surgicalhistory and problem list. 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 (CMS-HCC) Atrial fibrillation (CMS-HCC) Cervical spondylosis with myelopathy Cholelithiasis Colon, diverticulosis HTN (hypertension) Hyperlipidemia Left inguinal hernia Lumbar spondylosis with myelopathy Osteoarthritis Polyneuropathy Umbilical hernia Past Surgical History: Procedure Laterality Date CATARACT EXTRACTION CYST REMOVAL CYSTOSCOPY N/A 10/20/2022 Performed by Ulises Goetz Jr., MD at [facility] EAR RECONSTRUCTION LEG SURGERY PROSTATE BIOPSY 2018 [...] capsule 3 gabapentin (NEURONTIN) 100 mg capsule hydroCHLOROthiazide (HYDRODIURIL) 25 mg tablet Take 1 tablet (25 mg total) by mouth daily. metoprolol succinate XL (TOPROL XL) 50 mg 24 hr tablet Take 1 tablet (50 mg total) by mouth in the morning. yydwmwjs-ooot-TT-calcium &mins (THERAGRAN-M) 9 mg iron-400 mcg tablet Take 1 tablet by mouth inthe morning. omeprazole (PriLOSEC) 40 mg capsule Every morning No current facility-administered medications for this visit. [...] and vomitting. -per HPI Physical Exam: BP 151/61 Pulse 72 Ht 172.7 cm (5' 8 ) Wt 72.6 kg (160 lb) BMI 24.33 kg/m Alert, pleasant, without signs of acute illness, and in no distress. Respirations unlabored Assessment and Plan: Rishi was seen today for bladder problem and follow-up. Diagnoses and all orders for this visit: Elevated PSA Benign prostatic hyperplasia with urinary hesitancy Urologic disorders Problem List Unprioritized Urologic disorders Overview 1. Concern for bleeding tendency without formal evaluation with benign prostatic hyperplasia with difficulty voiding, hesitancy, postvoid dribble, and occasional urge incontinence all progressive since onset of severe polyneuropathy 2021 with marginal help with Flomax 0.4 mg primary care; Urinary retention 500 mL catheterization [facility] 04/13/2024 with subsequent hematuria gross; Vira 2. elevated PSA negative ultrasound prostate biopsy Dr. Christoph Miranda 08/08/2016 with focal acute/chronic inflammation for PSA there peak 7.68 on 05/03/2016; peak PSA 13.26 on 09/07/2022; PI-RADS level 2 lesion MRI 10/29/2022, volume 92 mL, density 0.14; ultrasound prostate biopsy declined repeatedly starting 12/22/2022. 3. Patient requested prostate cancer screening [...] Left lower pole simple renal cyst report [facility] CT 04/14/2024 9. Absent from requested 3 months follow-up from 12/22/2022 until 04/24/2024 10. Urodynamics unobtainable 05/06/2024 secondary to inability to catheterize patient with that catheter Elevated PSA - Primary Benign prostatic hyperplasia with urinary hesitancy Follow-up: 1. Make appointment with treatment nurse for monthly catheter change starting 1 month from now 2. Follow-up appointment 2 months with me Patient returns, with his , with no new complaint in follow-up of his benign prostatic hyperplasia, retention, and elevated PSA. Catheter changed without difficulty today by my staff. We reviewedfollow-up abnormal PSA 9.3 improved actually from previously 10.58 and 13.26. This was reviewed in the context of his age 83 years, prior refusal prostate biopsy, and MRI failed to demonstrate a worrisome lesion. Given the above factors, he again declines biopsy, which I think is actually reasonable. We reviewed the standard screening recommendations do not include recommendation particularly to screen after age 70, although in my office that is a patient based decision we reviewed. We discussed management of his retention. I again reviewed option of endoscopic resection of the prostate but advised any surgical procedure given his substantial urinary incontinence certainly couldresult in worsening not improving or stabilization of the incontinence, and that would be a risk hewould need to accept. We also reviewed we could relieve him mechanical obstruction but still wind up with urinary retention. We again reviewed options of chronic indwelling Wiley catheter or intermittent catheterization. He will give all this consideration. Return for monthly catheter exchange with my staff. Return not until 2 months at his request to reconsider these issues with me. He will contact us in the meantime if he wishes to start intermittent catheterization. Please note we did not discuss surgical risks in full detail, so he would need to have that discussion with me at the office before proceeding with any surgical intervention for the retention. I would not recheck PSA for at least 6-12 months if he wishes to continue screening. Urology service is the sole provider for the patient's ongoing management of urinary retention, which is a chronic condition requiring ongoing follow-up. ULISES GOETZ JR, MD This note was created with the assistance of a speech recognition program. While intending to generate a timely document that accurately reflects the content of the visit, no guarantee can be provided that every grammatical or spelling mistake has been or will be identified or corrected. Thank you for your understanding. documented [facility] Miscellaneous Notes* Telephone Encounter - Camila Kidd LPN - 06/18/2024 12:41 PM EST Called Pt. To remind him to get his PSA drawn before his appt on Sunday with Dr. Colleen MD. Pt.States he forgot. This nurse told him it was okay, just head over to the hospital today or tomorrow, go into the main entrance and let them know at the desk that you need to get a blood test done andthey will direct him where to go to get that done. Pt. Stated he would get that done. No other quest ions at this time. documented in this encounterMer[facility]11-20-2024 Telephone encounter Note* Telephone Encounter - Camila Kidd LPN - 06/18/2024 12:41 PM EST Called Pt. To remind him to get his PSA drawn before his appt on Sunday with Dr. Colleen MD. Pt.States he forgot. This nurse told him it was okay, just head over to the hospital today or tomorrow, go into the main entrance and let them know at the desk that you need to get a blood test done andthey will direct him where to go to get that done. Pt. Stated he would get that done. No other quest ions at this time. [facility]11-14-2024 [place] [address] EGD Procedure Note Signed Patient: Rishi Babcock MR#: [id number] : 1940 Acct:[id number] Age/Sex: 83 / M Adm Date: 4 Loc: Room: Type: [facility] Attending Dr: Gene Nguyễn MD Copies to: DO Gene Lundberg MD~ Esophagogastroduodenoscopy Date/Provider Date: 06/12/2024 Gene Nguyễn MD Procedure Findings: Procedure: EGD with dilation with biopsy Indication: 83-year-old man here for EGD for evaluation of dysphagia and wall thickening in the distal esophagus seen on CT Pre-operative diagnosis: Dysphagia, wall thickening in the distal esophagus seenon CT Post-operative diagnosis: Esophageal stricture, gastritis Sedation: propofol per anesthesia dept O2 oximetry, hemodynamic monitoring was performed pre, during, and post procedure. Patient was identified, H&P completed, patient was given full explanation of the procedure as well as associatedrisks and written consent wasobtained prior to procedure. Patient expressed complete understanding of the procedure as well as alternatives to the procedure and to anesthesia and agreed to proceed with the procedure as indicated. Patient was immediately reassessed prior to IV sedation. Following IV sedation, patient was placed in the left lateral decubitus position. Bite block was inserted. Endoscope was passed through the mouth, into the esophagus. Endoscope was advanced into the stomach through the pyloricchannel and into the 2nd portion of duodenum by direct visualization. Endoscopewas withdrawn into the stomach and retroflexion was performed. The endoscope was straightened,the stomach was decompressed. Endoscope was withdrawn into the esophagus then completely removed with the findings as below. Findings: DUODENUM: bulb and descending portion appeared normal. STOMACH: Erythematous mucosa noted in the antrum and body otherwise pyloric channel, antrum, body, fundus and cardia, including retroflexed views appear normal. Gastric biopsies were done using biopsy forceps to assess for H. pylori. ESOPHAGUS: Esophageal stricture noted at 43 cm from incisors. A CRE balloon waspassed into scope and stricture dilated using 21 mm. No tear or perforation noted. Diaphragmatic hiatus was 43 cm from incisors and GE junction (upper margin of gastric folds) was at43 cm from incisors. Squamocolumnar junction was at 43 cmfrom incisors. Biopsy taken: Yes Complications: None EBL: Minimal Recommendations: -Continue omeprazole 40 mg daily. -Avoid NSAIDs. -Follow up pathology Following a period of recovery, patient was seen and given full explanation of the procedure. Patient tolerated the procedure well and will be discharged in satisfactory, stable condition. Gene Nguyễn M.D. Documented By: Gene Nguyễn MD 06/12/24 142 Signed By: 06/12/24 1438 [facility]11-14-2024 [place] [address] Gastroenterology H&P Signed Patient: Rishi Babcock MR#: [id number] : 1940 Acct:[id number] Age/Sex: 83 / M Adm Date: 4 Loc: Room: Type: [facility] Attending Dr: Gene Nguyễn MD Copies to: Cameron Chambers,DO Gene Nguyễn MD~ Date of Service: 06/12/2024 HISTORY & PHYSICAL: Patient's history with special attention to the cardiovascular, pulmonary systems and the current problem was reviewed with the patient immediately prior to the procedure. Present medications and doses reviewed in the EMR. Allergies and pertinent laboratory tests were also re viewedat this time in the EMR. The physical examination, as below, was then performed. Indication, assessment and HPI: 83-year-old man here for EGD for evaluation of dysphagia Family history of GI malignancy? No PHYSICAL EXAMINATION General appearance: NAD Skin: No jaundice Head: NC/AT Eyes: Anicteric Neck: Supple Lungs: Normal respiratory effort, no use of accessory muscles Abdomen: nondistended Neuro: Ox3. REVIEW OF SYSTEMS Constitutional: Denies malaise, fevers Cardiovascular: Denies chest pain, palpitations Respiratory: Denies shortness of breath, wheezing Gastrointestinal: As per HPI Genitourinary: Denies dysuria, polyuria Musculoskeletal: Denies joint swelling, joint stiffness Neurological: Denies confusion, numbness, tingling Endocrine: Denies fatigue Written informed consent obtained from the patient. Risks (including but not limited to perforation, infection, bloating, bleeding, need for emergent surgeryand loss of life), benefits and alternatives explained and questions answered. The patient verbalized understanding. Based on history patient is an appropriate candidate for the procedure. Gene Nguyễn M.D. Documented By: Gene Nguyễn MD 06/12/241421 Signed By: 06/12/24 142 [facility]10-18-2024 Telephone encounter Note* Telephone Encounter - Peyton Mendoza RN - 05/16/2024 10:45 AM EDT TC to pt, notified him the test can be canceled and he verbalized understanding. [facility] central scheduling notified. Order canceled. [facility] Work Phone: [phone]) 405-319110-18-2024 Miscellaneous Notes* Telephone Encounter - Peyton Mendoza RN - 05/16/2024 10:45 AM EDT TC to pt, notified him the test can be canceled and he verbalized understanding. [facility] central scheduling notified. Order canceled. * Telephone Encounter - Alexander Damon MD - 05/16/2024 9:09 AM EDT It can be cancelled * Telephone Encounter - Peyton Mendoza RN - 05/16/2024 8:46 AM EDT Pt notified and verbalized understanding. Pt states he has a second swallow test scheduled for 05/21 and is asking he needs to follow thru with it or if he can cancel it. * Telephone Encounter - Alexander Damon MD - 05/16/2024 8:29 AM EDT Advise pt I received his swallowing study reports and he has a severe esophageal narrowing near hisstomach. I spoke with Dr Chambers and Dr Chambers will be arranging for him to see a anglesmith. This is the cause of his sx. No need to F/U with me documented in this encounterSaint Alexius [id number] Telephone encounter Note* Telephone Encounter - Alexander Damon MD - 05/16/2024 9:09 AM EDT It can be cancelled [id number] Telephone encounter Note* Telephone Encounter - Peyton Mendoza RN - 05/16/2024 8:46 AM EDT Pt notified and verbalized understanding. Pt states he has a second swallow test scheduled for 05/21 and is asking he needs to follow thru with it or if he can cancel it. [facility] [id number] Telephone encounter Note* Telephone Encounter - Alexander Damon MD - 05/16/2024 8:29 AM EDT Advise pt I received his swallowing study reports and he has a severe esophageal narrowing near hisstomach. I spoke with Dr Chambers and Dr Chambers will be arranging for him to see a anglesmith. This is the cause of his sx. No need to F/U with me [facility] [id number] History of Present illness Narrative* Alexander Damon MD - 05/13/2024 10:50 AM EDT Subjective Patient ID: Rishi Babcock is a 83 y.o. male who presents for Dysphagia Pt states he is having trouble keeping food down . Brings food up after swallowing. Immediate at times, and up to an hour later. Has trouble with solids primarily. No throat pain. No imaging. Pt hasa H/O severe neuropathy. H/O GERD. Takes Pepcid BID. Has a hiatal hernia. Has lost 30# in 6 mo. [facility] EGD 01/2023 Review of Systems All other systems reviewed and are negative. Family History Problem Relation Name Age of Onset Cancer Mother Leukemia Mother Heart failure Father Active Ambulatory Problems Diagnosis Date Noted A-fib (CMS/HCC) 05/05/2024 Acute blood loss anemia 05/05/2024 Acute lower GI bleeding 05/05/2024 Diverticular hemorrhage 05/05/2024 Rectal bleeding 05/05/2024 Atherosclerosis of [place] arteries of extremities with intermittent claudication, bilateral legs (CMS/HCC) 05/05/2024 Back pain 05/05/2024 Benign prostatic hyperplasia with lower urinary tract symptoms 08/25/2022 Carpal tunnel syndrome 05/05/2024 Chronic kidney disease (CKD) 05/05/2024 Dysphagia 05/05/2024 Diverticulosis 05/05/2024 Elevated PSA 08/25/2022 Gastroesophageal reflux disease with esophagitis without hemorrhage 05/05/2024 Hematuria 05/05/2024 Hypercholesterolemia (CMS/HCC) 05/05/2024 Hypertension (CMS/HCC) 05/05/2024 Idiopathic peripheral neuropathy 05/05/2024 Left foot drop 05/05/2024 Left shoulder pain 05/05/2024 Spondylosis of cervical spine 05/05/2024 Lower extremity edema 05/05/2024 Primary osteoarthritis, left shoulder 05/05/2024 Sacroiliac inflammation ([facility]/HCC) 05/05/2024 Acute urinary retention 05/05/2024 Urologic disorders 08/25/2022 Urinary retention due to benign prostatic hyperplasia 05/05/2024 Resolved Ambulatory Problems Diagnosis Date Noted No Resolved Ambulatory Problems Past Medical History: Diagnosis Date Polyneuropathy, unspecified Past Surgical History: Procedure Laterality Date ANKLE FRACTURE SURGERY ATRIAL ABLATION SURGERY CARPAL TUNNEL RELEASE CATARACT EXTRACTION COLONOSCOPY CYST REMOVAL EAR RECONSTRUCTION middle ear ESOPHAGOGASTRODUODENOSCOPY NECK SURGERY PROSTATE BIOPSY TONSILLECTOMY Allergies Allergen Reactions Ciprofloxacin Hives and Itching Other Reaction(s): Muscle Pain Current Outpatient Medications on File Prior to Visit Medication Sig Dispense Refill aspirin 81 MG EC tablet Every morning famotidine (Pepcid) 10 MG tablet Take 20 mg by mouth ondansetron ODT (Zofran-ODT) 4 MG disintegrating tablet .COMPLEX saw palmetto (Serenoa repens) 450 MG capsule Twice daily [DISCONTINUED] cephalexin (Keflex) 500 MG capsule Every 8 hours [DISCONTINUED] dutasteride (Avodart) 0.5 MG capsule Take 0.5 mg by mouth in the morning. [DISCONTINUED] hydroCHLOROthiazide (HYDRODiuril) 25 MG tablet Every morning [DISCONTINUED] iron polysaccharides (Nu-Iron,Niferex) 150 MG capsule Every 48 hours [DISCONTINUED] metoprolol succinate XL (Toprol-XL) 25 MG 24 hr tablet [DISCONTINUED] tamsulosin (Flomax) 0.4 MG 24 hr capsule Take 0.8 mg by mouth at bedtime [DISCONTINUED] triamcinolone (Kenalog) 0.1 % cream Twice daily [DISCONTINUED] gabapentin (Neurontin) 100 MG capsule TAKE 1 CAPSULE BY MOUTH EVERY MORNING AND TAKETHREE CAPSULES BY MOUTH EVERY NIGHT AT BEDTIME 120 capsule 2 [DISCONTINUED] lisinopril-hydroCHLOROthiazide 10-12.5 MG tablet 1 (one) time each day at the same time No current facility-administered medications on file prior to visit. Objective Last Recorded Vitals Vitals: 05/13/24 1049 BP: 131/68 ENT Physical Exam Constitutional Appearance: patient appears well-developed and well-nourished, Head and Face Appearance: head appears normal and face appears atraumatic; Ear Ear comments: Satish ears normal Nose External Nose: nares patent bilaterally; external nose normal; Internal Nose: nasal mucosa normal; Oral Cavity/Oropharynx Lips: normal; Teeth: normal; Gums: gingiva normal; Tongue: normal; Oral mucosa: normal; Hard palate: normal; Base of Tongue: normal; OC/OP comments: IDL - no mass or ulcer Neck Neck: neck normal; neck palpation normal; Thyroid: thyroid normal; Respiratory Inspection: breathing unlabored; normal breathing rate; Auscultation: breath sounds are clear; Cardiovascular Inspection: extremities are warm and well perfused; no peripheral edema present; Auscultation: regular rate and rhythm; Assessment/Plan Diagnoses and all orders for this visit: Pharyngoesophageal dysphagia It is unclear whether pt having a functional or anatomic problem with swallowing. Some sx suggest aZenker's. I will check both an esophagram and a MBS to eval both. documented in this encounterSaint Alexius [id number] History of Present illness Narrative* Ulises Goetz Jr., MD - 05/09/2024 8:30 AM EDT Images from the original note were not included. [address] [place] [address] A [facility] [id number] Patient: Rishi Babcock Date of : 1940 Encounter Date: [...] , EXTPOCUBAC , EXTPOCUTREP , EXTPOCUPH , EXTPOCUL EE in the last 72 hours. Last BUN [...] past medical history, past social history, past surgicalhistory and problem list. 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 (CMS-HCC) Atrial fibrillation (CMS-HCC) Cervical spondylosis with myelopathy Cholelithiasis Colon, diverticulosis HTN (hypertension) Hyperlipidemia Left inguinal hernia Lumbar spondylosis with myelopathy Osteoarthritis Polyneuropathy Umbilical hernia Past Surgical History: Procedure Laterality Date CATARACT EXTRACTION CYST REMOVAL CYSTOSCOPY N/A 10/20/2022 Performed by Ulises Goetz Jr., MD at [facility] EAR RECONSTRUCTION LEG SURGERY PROSTATE BIOPSY 2018 [...] mg total) by mouth in the morning. ymipducd-levk-VB-calcium &mins (THERAGRAN-M) 9 mg iron-400 mcg tablet Take 1 tablet by mouth inthe morning. omeprazole (PriLOSEC) 40 mg capsule Every [...] dry on examination now. Assessment and Plan: Rishi was seen today for follow-up. Diagnoses and [...] primary care; Urinary retention 500 mL catheterization [facility] 04/13/2024 with subsequent hematuria gross; [...] Left lower pole simple renal cyst report [facility] CT 04/14/2024 9. Absent from requested [...] staff. They were able to place a Wiley catheter which is draining appropriately. We discussed the urodynamics could theoretically give insight as to whether not trans urethral ablation of his obstructing prostate would successfully relieve his urinary retention, but his 's spoke up and commented that he is actually just incontinence continuously all day long, and that is actually resolved with his indwelling Wiley. I did discuss option of intermittent self catheterization, although I commented if he really has continued urinary incontinence, likely that would not be successful therapy. We did discuss the possibility of endoscopic treatment of his prostate to try to fix the retention,but again, we also reviewed given his incontinence situation, such a procedure could actually make the incontinence worse. I think he is leaning toward management with chronic indwelling Wiley which could be per urethra wediscussed changed monthly. We did not discussed today possibility of suprapubic tube. Return 1 month with repeat catheter change and PSA to follow up as elevated PSA. Urology service isthe sole provider for the patient's ongoing management of benign prostatic hyperplasia with urinaryretention, which is a chronic condition requiring ongoing follow-up. Today I did discontinued his Flomax, as he certainly does not needed anymore. Continue dutasteride 0.5 mg daily to prevent prostatic bleeding. ULISES GOETZ JR, MD This note was created with the assistance of a speech recognition program. While intending to generate a timely document that accurately reflects the content of the visit, no guarantee can be provided that every grammatical or spelling mistake has been or will be identified or corrected. Thank you for your understanding. documented in this encounterMer[facility]10-08-2024 Miscellaneous Notes* Telephone Encounter - Ulises Goetz Jr., MD - 05/06/2024 5:31 PM EDT Images from the original note were not included. Excellent! Thanks Patient Calls (Newest Message First) View All Conversations on this Encounter BRENT Gee routed conversation to You48 minutes ago (4:43 PM) TSERING Gee8 minutes ago (4:43 PM) MH I spoke with pt and he said they placed a new wiley. He said his urine is on the darker side. I told him to push the water and that should help. Pt said he has an appointment with you on Sunday. Note documented in this encounterMer[facility]10-08-2024 Telephone encounter Note* Telephone Encounter - Ulises Goetz Jr., MD - 05/06/2024 5:31 PM EDT Images from the original note were not included. Excellent! Thanks Patient Calls (Newest Message First) View All Conversations on this Encounter BRENT Gee routed conversation to You48 minutes ago (4:43 PM) JOSE GeeA48 minutes ago (4:43 PM) MH I spoke with pt and he said they placed a new wiley. He said his urine is on the darker side. I told him to push the water and that should help. Pt said he has an appointment with you on Sunday. Note [facility]10-08-2024 Miscellaneous Notes* Telephone Encounter - Ulises Goetz Jr., MD - 05/06/2024 4:28 PM EDT I need to be provided more complete [...] JOSE GeeA2 hours ago (1:34 PM) from [facility] calls because pt wasn't able to finish his flow study because they had trouble with the catheter and it started bleeding. * Telephone Encounter - BRENT Gee - 05/06/2024 4:28 PM EDT I spoke with pt and he said they placed a new wiley. He said his urine is on the darker side. I told him to push the water and that should help. Pt said he has an appointment with you on Sunday. documented in this encounterMer[facility]10-08-2024 Telephone encounter Note* Telephone Encounter - Ulises Goetz Jr., MD - 05/06/2024 4:28 PM EDT I need to be provided more complete [...] JOSE GeeA2 hours ago (1:34 PM) from [facility] calls because pt wasn't able to finish his flow study because they had trouble with the catheter and it started bleeding. [employer]10-08-2024 Telephone encounter Note* Telephone Encounter - BRENT Gee - 05/06/2024 4:28 PM EDT I spoke with pt and he said they placed a new wiley. He said his urine is on the darker side. I told him to push the water and that should help. Pt said he has an appointment with you on Sunday. [facility] History of Present illness Narrative* Ulises Goetz Jr., MD - 04/24/2024 2:15 PM EDT Images from the original note were not included. [address] [place] [id number] Patient: Rishi Babcock Date of : 1940 Encounter Date: 04/24/2024 History of Present Illness: Chief Complaint: Follow up benign prostatic hyperplasia and elevated PSA. See below Urinalysis today: No results for input(s): EXTPOCURCO , EXTPOCURCH , EXTPOCAPP , EXTPOCURBS , EXTPOCURBIL , EXTPOCUKET , EXTPOCUSPG , EXTPOCUHGB , EXTPOCUPRO , EXTPOCUURO , EXTPOCULEU , EXTPOCUNIT , EXTPOCUWBC , EXTPOCUBLD , EXTPOCURBC , EXTPOCUCRY , EXTPOCUBAC , EXTPOCUTREP , EXTPOCUPH , EXTPOCUL EE in the last 72 hours. Last BUN [...] past medical history, past social history, past surgicalhistory and problem list. 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 gabapentin (NEURONTIN) 100 mg capsule metoprolol succinate XL (TOPROL XL) 50 mg 24 hr tablet Take 1 tablet (50 mg total) by mouth in the morning. mvborkup-zvzd-RH-calcium &mins (THERAGRAN-M) 9 mg iron-400 mcg tablet Take 1 tablet by mouth inthe morning. omeprazole (PriLOSEC) 40 mg capsule Every morning tamsulosin (FLOMAX) 0.4 mg capsule Take 2 capsules (0.8 mg total) by mouth nightly. 180 capsule 3 cefaDROXil (DURICEF) 500 mg capsule Take 1 capsule by mouth 1 hour prior to bladder testing 1 capsule 0 dutasteride (AVODART) 0.5 mg capsule Take 1 capsule (0.5 mg total) by mouth in the morning. 90 capsule 3 lisinopril-hydroCHLOROthiazide (PRINZIDE,ZESTORETIC) 10-12.5 mg per tablet (Patient not taking: Reported on 04/24/2024) tamsulosin (FLOMAX) 0.4 mg capsule Take 2 capsules (0.8 mg total) by mouth nightly. 180 capsule 3 No current facility-administered medications for this visit. [...] and vomitting. -per HPI Physical Exam: BP 132/80 Pulse 70 Ht 172.7 cm (5' 8 ) Wt 72.6 kg (160 lb) BMI 24.33 kg/m Very grumpy. No acute distress. Unlabored respirations. Requires 1-2 person assist for standing andwalking. Redundant foreskin. Penis without mass lesion or discharge. Prashant urine without clots in Wiley bag. Testicles descended bilaterally without mass or tenderness. Prostate 50 g nontender nonnodular Assessment and Plan: Rishi was seen today for follow-up. Diagnoses and all orders for this visit: Urinary retention - Cystometrogram; Future Urologic disorders Benign prostatic hyperplasia with urinary hesitancy Elevated PSA Other orders - cefaDROXil (DURICEF) 500 mg capsule; Take 1 capsule by mouth 1 hour prior to bladder testing - dutasteride (AVODART) 0.5 mg capsule; Take 1 capsule (0.5 mg total) by mouth in the morning. - tamsulosin (FLOMAX) 0.4 mg capsule; Take 2 capsules (0.8 mg total) by mouth nightly. Problem List Unprioritized Urologic disorders Overview 1. Concern for bleeding tendency without formal evaluation with benign prostatic hyperplasia with difficulty voiding, hesitancy, postvoid dribble, and occasional urge incontinence all progressive since onset of severe polyneuropathy 2021 with marginal help with Flomax 0.4 mg primary care; Urinary retention 500 mL catheterization [facility] 04/13/2024 with subsequent hematuria gross; [...] Left lower pole simple renal cyst report [facility] CT 04/14/2024 9. Absent from requested 3 months follow-up from 12/22/2022 until 04/24/2024 Elevated PSA Benign prostatic hyperplasia with urinary hesitancy Follow-up: 05/09/2024 830 a.m. appointment please Valeriy Patient and return, after extended absence since requested 3 months follow- up from 12/22/2022,now with the patient entering renata urinary retention as noted below with catheter placed 04/13/2024 with some hematuria understandably since. Catheterized for 500 mL on the . Final culture they are negative. Left simple renal cyst, bladder wall thickening, and benign prostatic hyperplasia withFoley catheter from a urologic standpoint on CT imaging on the and that 2 different emergency department. I REVIEWED THE FOLLOWIN. [facility] emergency department provider note 04/13/2024 lumbar and left-sided back pain with patient on Flomax and saw palmetto catheterized for [address] there indicated spinal stenosis.Urine 20 red cells 250 red cells trace leukocyte esterase. Afebrile. 2. [facility] emergency department provider note 04/14/2024 with complaints of continued left flank pain despite catheter placement today previously at the other ER. Report of lumbar spine CT showing chronic changes with a lot of back problems. Leg weakness which is chronic and unchanged. Noted he was on Cipro at the time. Comment made about present prior repeat catheter and hip grossly pyuria mild left flank tenderness noted. Urinalysis there 10-19 white cells, no bacteria, positive red cells. Noted to have normal renal function. Provided Dilaudid with pain improvement. Creatinine 0.9 specifically. Innumerable red cells on urinalysis. Final urine negative 04/14/2024.[facility] CT there small left renal cysts, left inguinal hernia, Wiley catheter, colonic diverticulosis, fluid in the distal esophagus, fat filled umbilical hernia, and benign or apparently benign multiple. Changes. Also cholelithiasis and diffuse bladder wall thickening as would be expected. 3. Negative urine culture 04/14/2024 I advised the patient to pursue the non urologic CT findings with primary care. CT report provided to the patient. Patient and today were very frustrated, and patient was angry about his catheter and wanting help right away. We reviewed he is absolutely been absent from requested follow-up for some time as noted above. We reviewed specifically also his history of elevated PSA, which based on age, morbidity, and ongoing events as now certainly a back burner issue. We will try to help I reviewed with the retention 1st. He did not understand why he was on the dutasteride her Flomax and wondered if he needed to still take them! I did renew today his Flomax 0.8 mg nightly and dutasteride 0.5 mg daily. 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 I prescribed Duricef 500 mg p.o. to take 1 hour prior to the urodynamics. We reviewed we may entertain voiding trial that morning. Advised he may benefit from surgery to help with his retention. Then entertain follow up PSA testing if he still wishes, pending clinical course. Urology service is the sole provider for the patient's ongoing management of Benign prostatic hyperplasia with retention and elevated PSA, which is a chronic condition requiring ongoing follow-up. ULISES GOETZ JR, MD This note was created with the assistance of a speech recognition program. While intending to generate a timely document that accurately reflects the content of the visit, no guarantee can be provided that every grammatical or spelling mistake has been or will be identified or corrected. Thank you for your understanding. [facility] Miscellaneous Notes* Telephone Encounter - Camila Kidd LPN - 04/18/2024 2:33 PM EDT In preparation for the Pt.'s visit with Dr. Colleen MD, this nurse contacted medical records andradiology departments at the [facility] to request all films and visit records. Waiting on records from both hospitals at this time. Films will also be pushed to the [facility] as well. documented in this encounterMer[facility]-2024 Telephone encounter Note* Telephone Encounter - Camila Kidd LPN - 04/18/2024 2:33 PM EDT In preparation for the Pt.'s visit with Dr. Colleen MD, this nurse contacted medical records andradiology departments at the [facility] to request all films and visit records. Waiting on records from both hospitals at this time. Films will also be pushed to the [facility] as well. [facility]09-19-2024 Miscellaneous Notes* Telephone Encounter - Camila Kidd LPN - 04/17/2024 4:39 PM EDT This nurse contacted the Pt. To see what ED's he was seen in to obtain the records for his appointment with Dr. Colleen MD. Pt. Stated he was seen in the [facility] and also [facility] ED. documented in this encounterMer[facility]-2024 Telephone encounter Note* Telephone Encounter - Camila Kidd LPN - 04/17/2024 4:39 PM EDT This nurse contacted the Pt. To see what ED's he was seen in to obtain the records for his appointment with Dr. Colleen MD. Pt. Stated he was seen in the [facility] ED and also [facility] ED. [facility]08-30-2024 Evaluation note* Diagnosis Onset Date Resolution Status Admit Date Hypertension acute March 28, 2024 11:23am Left shoulder pain acute March 28, 2024 11:23am Lower extremity edema acute Aug ust 2023 11:23am Primary osteoarthritis, left shoulder acute March 28 11:23am Benign prostatic hyperplasia with lower urinary tract symptoms acute April 18, 2024 2:49pm Gastroesophageal reflux dise ase with esophagitis without hemorrhage acute April 18, 2024 2:49pm Hematuria acute March 2:49pm Hypertension acute April 182023 2:49pm Lumbar spondylosis with myelopathy acute April 18, 2024 2:49pm Back pain inactive March 2:49pm Achalasia of esophagus acute Oc tober 2023 11:42am Esophageal dysphagia acute Octo alok 2023 11:42am Gastroesophageal reflux dise ase with esophagitis without hemorrhage acute May 21 11:42am Hypertension acute April 11:42am Lumbar spondylosis with myelopathy acute May 21 11:42am [facility] Work Phone: 1(778) 227-503105-04-2024 Progress note Author Asim Mathur [facility] December 01, 2023 8:56am Note Date/Time December 01, 2023 8:56am [facility] [address] [place] [address] Gastroenterology PN Signed Patient: Rishi Babcock MR#: [id number] : 1940 Acct:[id number] Age/Sex: 83 / M Adm Date: 4 Loc: Room: [address] [place] [address] Type: ADM IN Attending Dr: George Romero [...] signed by Asim Mathur MD> 12/01/23 0856 [facility] Work Phone: 1(417) 380-195905-03-2024 Progress note Author George Romero [facility] November 30, 2023 1:31pm Note Date/Time November 30, 2023 11:35a m [facility] [address] [place] [address] Hospitalist Progress Note Signed Patient: Rishi Babcock MR#: [id number] : 1940 Acct:[id number] Age/Sex: 83 / M Adm Date: Loc: 4 Room: [address] [place] [address] Type: ADM IN Attending Dr: George Romero [...] of care and 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 Patient is seen and evaluated on 4 progressive. Patient states that he is not doing great this morning. He he noted some blood in his urine. It is unsure whether or not he showed this to nurses. He states this started yesterday and has continued into today. He denies any pain. Otidt-om-tylq ultrasound was performed and demonstrated approximately 450 [...] overflow/prostamegaly Chronic prostamegaly with outpatient urologist in [place], has been recommended prostate procedure Currently on Flomax 0.4 twice daily 500 mL plus urinary retention currently with no signs of GERONIMO or infection Discussed in depth risk of persistent urinary retention including GERONIMO and infection. He declined for now Wiley catheter to drain bladder. schedule bladder scan [...] <Electronically signed by George Romero MD> 11/30/[address] [place] [address] Work Phone: 1(605) 889-875705-03-2024 Consult note Author Syed Buchanan [facility] November 30, 2023 12:18pm Note Date/Time November 30, 2023 12:18p m [facility] [address] [place] [address] Urology Consult Note Signed Patient: Rishi Babcock MR#: [id number] : 1940 Acct:[id number] Age/Sex: 83 / M Adm Date: 4 Loc: 4P Room: [address] [place] [address] Type: ADM IN Attending Dr: George Romero MD Copies to: MD Cameron Duffy DO Christopher S Reese, MD~ History of Present Illness Consult Details Consult Date: 11/30/2023 Reason for Urology Consult: Obstructive uropathy Requesting Provider: George Romero MD HPI: 83 yo long hx of bph and elevated psa sees dr goetz in [facility] on flomax daily and had a negative prostate biopsy a few yrs ago for psa 13 now adm with bloody stools and diahrrea and has incomplete emptying and is refusing wiley asked to see Review of Systems Gastrointestinal Gastrointestinal: Reports diarrhea and Reports hematochezia Genitourinary Genitourinary: Reports difficulty urinating, Reports hematuria, Reports urinary frequency, Reports urinary incontinence and Reports urinary urgency [facility] Medical History (Updated 11/30/23 @ 12:17 by Syed Buchanan MD) Urinary retention due to benign prostatic hyperplasia pt refusing wiley presently Hypertension Chronic kidney disease (CKD) Lumbar spondylosis Hypercholesterolemia Atherosclerosis of [place] arteries of extremities with intermittent claudication, bilateral legs Unspecified atrial flutter Tongue lesion Supraventricular tachycardia Spondylosis without myelopathy or radiculopathy, lumbar region (04/05/17) Other spondylosis with myelopathy, lumbar region Other spondylosis with myelopathy, cervical region Other jail (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 Motor neuron disease Iron [...] % (Auto) 65.8, Lymph % (Auto) 22.7, [place] % (Auto) 9.2, Eos % (Auto) 1.6, Baso % (Auto) 0.7, Nucleat RBC Rel Count 0.1, Neut # (Auto) 4.8, Lymph # (Auto) 1.7, [place] # (Auto) 0.7, Eos # (Auto) 0.1, [...] <Electronically signed by Syed Buchanan MD> 11/30/23 [facility]8 [facility] Work Phone: 1(157) 342-154405-02-2024 Progress note Author George Romero [facility] November 29, 2023 12:35pm Note Date/Time November 29, 2023 11:34a m [facility] [address] [place] [address] Hospitalist Progress Note Signed Patient: Rishi Babcock MR#: [id number] : 1940 Acct:[id number] Age/Sex: 83 / M Adm Date: 4 Loc: 4 Room: 5C4735-2 Type: ADM IN Attending Dr: George Romero [...] of care and 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 Evaluated at bedside. Continues to deny pain. Has had multiple bowel movementswhile here with blood clots present. 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 Bladder scan by nursing showed around 570 mL postvoid. Foboi-ah-wpla ultrasound also showed 500 mL sometime later. Patient does have urologist outpatient who wants him to be seen in [place]. Currently denies dysuria, fever sweats or chills, worsening back pain. Discussed with the patient concern for prolonged urinary retention 500 mL plus and potential long-term damage to kidneys and possible infection. We recommended urinary Wiley to drain the bladder, he refused the Wiley and requested more time to think on accepting the Wiley. Was transferred from [facility] overnight, no other events General: ANO x3, [...] overflow/prostamegaly Chronic prostamegaly with outpatient urologist in [place], has been recommended prostate procedure Currently on Flomax 0.4 twice daily 500 mL plus urinary retention currently with no signs of GERONIMO or infection Discussed in depth risk of persistent urinary retention including GERONIMO and infection. He declined for now Wiley catheter to drain bladder. schedule bladder scan [...] Lactated Ringers IV 11/30/23 01:39 75 mls/hr .[id number] SOFY Administration Ondansetron HCl 4 mg 11/28/23 [...] l Documented By: George Romero MD 11/29/23 1108 Signed By: <Electronically signed by George Romero MD> 11/29/23 1235 <Electronically signed by DO EVAN Brown> 11/29/23 1139 [facility] Work Phone: 1(883) 866-380705-02-2024 Progress note Author Asim Mathur [facility] November 29, 2023 12:29pm Note Date/Time November 29, 2023 12:29p [facility] [address] [place] [address] Gastroenterology PN Signed Patient: Rishi Babcock MR#: [id number] : 1940 Acct:[id number] Age/Sex: 83 / M Adm Date: 4 Loc: Room: [address] [place] [address] Type: ADM IN Attending Dr: George Romero [...] Lactated Ringers IV 11/30/23 01:39 75 mls/hr .[id number] SOFY Administration Magnesium Sulfate 4 gm in [...] peripherally follow Documented By: Asim Mathur MD 11/29/231225 Signed By: <Electronically signed by Asim Mathur MD> 11/29/23 1229 [facility] Work Phone: 1(749) 745-320005-02-2024 Consult note Author Asim Mathur [facility] November 29, 2023 8:31am Note Date/Time November 29, 2023 8:13am [facility] [address] [place], [place] [id number] Gastroenterology Consult Note Signed Patient: Rishi Babcock MR#: [id number] : 1940 Acct:[id number] Age/Sex: 83 / M Adm Date: 4 Loc: 4P Room: [address] [place] [address] Type: ADM IN Attending Dr: George Romero [...] Hematologic/Lymphatic: Denies easy bruising and Denies lymphadenopathy [facility] Medical History (Updated 11/29/23 @ 08:31 by Asim Mathur MD) Hypertension Chronic kidney disease (CKD) Lumbar spondylosis Hypercholesterolemia Atherosclerosis of [place] arteries of extremities with intermittent claudication, bilateral legs Unspecified atrial flutter Tongue lesion Supraventricular tachycardia Spondylosis without myelopathy or radiculopathy, lumbar region (04/05/17) Other spondylosis with myelopathy, lumbar region Other spondylosis with myelopathy, cervical region Other jail (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 Motor neuron disease Iron [...] MPV Neut % (Auto) Lymph % (Auto) [place] % (Auto) Eos % (Auto) Baso % (Auto) Nucleat RBC Rel Count Neut # (Auto) Lymph # (Auto) [place] # (Auto) Eos # (Auto) Baso # (Auto) PT INR APTT PHA Creatinine Clear Sodium Potassium Chloride Carbon Dioxide Anion Gap BUN Creatinine Est GFR (CKD-EPI) Glucose Calcium Magnesium Total Bilirubin Direct Bilirubin Indirect Bilirubin AST ALT Alkaline Phosphatase Total Protein Albumin Globulin Albumin/Globulin Ratio Blood Type O Negative Blood Type Recheck O Negative Antibody Screen Negative Crossmatch (AHG) See Detail 11/29/23 04:08 Corrected WBC 7.3 Uncorrected WBC Count 7.3 RBC 3.14 L Hgb 10.4 L Hct 30.3 L MCV 96.4 MCH 33.1 MCHC 34.3 RDW 13.8 Plt Count 207 MPV 9.1 Neut % (Auto) 65.8 Lymph % (Auto) 22.7 [place] % (Auto) 9.2 Eos % (Auto) 1.6 Baso % (Auto) 0.7 Nucleat RBC Rel Count 0.1 Neut # (Auto) 4.8 Lymph # (Auto) 1.7 [place] # (Auto) 0.7 Eos # (Auto) 0.1 [...] Type Blood Type Recheck Antibody Screen Crossmatch (AHG) A&P - Gastroenterology Assessment/Plan (1) Diverticulosis: (2) [...] signed by Asim Mathur MD> 11/29/23 0831 [facility] Work Phone: 1(362) 273-673005-02-2024 History and physical note Author Lane Carlos [facility] November 29, 2023 12:14am Note Date/Time November 28, 2023 11:13p m [facility] [address] [place] [address] Hospitalist H&P Signed Patient: Rishi Babcock MR#: [id number] : 1940 Acct:[id number] Age/Sex: 83 / M Adm Date: 4 Loc: 4 Room: [address] [place] [address] Type: ADM IN Attending Dr: Falguni Brasher MD Copies to: DO Lane Lundberg, DO Falguni Brasher MD Bárbara Ramirez, HIGH SCHOOL FOREIGN LANGUAGE TEACHER~ HPI DATE OF EXAMINATION: 11/28/23 CHIEF COMPLAINT: bloody stools HISTORY OF PRESENT ILLNESS: Mr. Babcock is an 83-year-old male with a PMH of A-fib, abrasion years ago not on anticoagulation, severe polyneuropathy, HTN, iron deficiency anemia, GERD, SVT, spondylosis, tobacco dependence?daily cigar smoker that presented to the [facility] emergency room for bloody stools. Patient states [...] of the abdomen pelvis performed at the [facility] shows colonic diverticulosis with evidence of active [...] unless noted in the HPI or below. [facility] Medical History (Updated 11/28/23 @ 23:36 by Bárbara Ramirez APRN) Hypertension Chronic kidney disease (CKD) Lumbar spondylosis Hypercholesterolemia Atherosclerosis of [place] arteries of extremities with intermittent claudication, bilateral legs Unspecified atrial flutter Tongue lesion Supraventricular tachycardia Spondylosis without myelopathy or radiculopathy, lumbar region (04/05/17) Other spondylosis with myelopathy, lumbar region Other spondylosis with myelopathy, cervical region Other jail (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 Motor neuron disease Iron [...] but thinks it may have been [place]. This patient was seen before midnight on November 27. 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 Weight loss. PPI [facility] Other 12-03-2023 Evaluation note* Encounter Date Diagnosis Assessment Notes Treatment Notes Treatment Clinical Notes Jun, Primary hypertension (ICD-10 - I10) [facility] Other 2023 Evaluation note* Encounter Date Diagnosis [...] Neurology w/ suggestion w/ referral to Neurosurgery [facility] [employer] Other 07-31-2023 History and physical note Author Gene [facility] February 26, 2023 9:20am Note Date/Time February 26, 2023 9:20 am [facility] [address] [place] [address] Gastroenterology H&P Signed Patient: YokoRishi MR#: [id number] : 1940 Acct:[id number] Age/Sex: 82 / M Adm Date: 3 Loc: Room: Type: [facility] Attending Dr: Gene Nguyễn MD Copies to: [...] <Electronically signed by Gene Nguyễn MD> 02/26/23919 [facility] Work Phone: 1(684) 606-305707-31-2023 [facility] Evaluation note* Encounter Date Diagnosis Assessment Notes Treatment Notes Treatment Clinical Notes 18 Dereje, 2023 Superficial abrasion (ICD-10 - T14.8XXA) Keep clean Cleanse w/ soap and water Jan, Insect bite (nonvenomous), right lower leg, initial encounter (ICD-10 - S80.861A) Keep clean and dry Jan, Bitten or stung by nonvenomous insect and other nonvenomous arthropods, initial encounter (ICD-10 - W57.XXXA) Tick vs spider bite Treat w/ antibiotics for now [facility] Other 06-06-2023 Evaluation note* Encounter Date Diagnosis [...] failed to control symptoms 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 MRI pending Decision on MRI/fusion bx pending Oct, Other retention of urine (ICD-10 - R33.8) [facility] Other 03-22-2023 Evaluation note* Encounter Date Diagnosis Assessment Notes Treatment Notes Treatment Clinical Notes Sep, Anemia, unspecified type (ICD-10 - D64.9) [facility] Other 01-31-2022 Evaluation note* Encounter Date Diagnosis [...] region with neurogenic claudication (ICD-10 - M48.062) [facility] Other 01-05-2022 Evaluation note* Encounter Date Diagnosis [...] Jul, Idiopathic peripheral neuropathy (ICD-10 - G60.9) [facility] Other evaluation noteNo InformationN[employer] Other Evaluation noteNo assessment information available [facility] Work Phone: Evaluation note* Diagnosis Onset Date Resolution Status Benign prostatic hyperplasia with lower urinary tract symptoms acute Cervical spondylosis with radiculopathy acute Chronic kidney disease (CKD) acute CTS (carpal tunnel syndrome) acute Left foot drop acute Lumbar spondylosis acute Sacroiliac inflammation acut e Severe carpal tunnel syndrome of both wrists acute Spondylolisthesis, lumbar region acute [facility] Work Phone: Evaluation note* Diagnosis Onset [...] left wrist acute Pre-operative cardiovascular examination acute [facility] Work Phone: Evaluation note* Diagnosis Onset [...] Urinary retention due to benign prostatic hyperplasia [facility] Work Phone: Evaluation note* Diagnosis Onset [...] acute Diverticular hemorrhage acut e Hypertension acute [facility] Work Phone: Evaluation note* Diagnosis Onset [...] hyperplasia with lower urinary tract symptoms resolved [facility] Work Phone: Evaluation note* Diagnosis Onset Date Resolution Status Acute blood loss anemia acut e Benign prostatic hyperplasia with lower urinary tract symptoms acute Hypertension acute Lumbar spondylosis with myelopathy acute Hypertension acute Left shoulder pain acute Primary osteoarthritis, left shoulder acute [facility] Work Phone: Evaluation note* Diagnosis Onset Date Resolution Status Hypertension acute Left shoulder pain acute Lower extremity edema acute Primary osteoarthritis, left shoulder acute [facility] Work Phone: Evaluation note* Diagnosis Onset Date Resolution Status Hypertension acute Left shoulder pain acute Lower extremity edema acute Primary osteoarthritis, left shoulder acute Benign prostatic hyperplasia with lower urinary tract symptoms acute Hypertension acute Lumbar spondylosis with myelopathy acute [facility] Work Phone: Evaluation note* Diagnosis Onset Date Resolution Status Hypertension acute Left shoulder pain acute Lower extremity edema acute Primary osteoarthritis, left shoulder acute Benign prostatic hyperplasia with lower urinary tract symptoms acute Gastroesophageal reflux dise ase with esophagitis without hemorrhage acute Hematuria acute Hypertension acute Lumbar spondylosis with myelopathy acute [facility] Work Phone: Evaluation note* Diagnosis Pharyngoesophageal dysphagia- Primary Dysphagia, pharyngoesophageal phase documented in this encounter [facility] Diagnosis Onset Date Resolution Status Hypertension acute Left shoulder pain acute Lower extremity edema acute Primary osteoarthritis, left shoulder acute Benign prostatic hyperplasia with lower urinary tract symptoms acute Gastroesophageal reflux dise ase with esophagitis without hemorrhage acute Hematuria acute Hypertension acute Lumbar spondylosis with myelopathy acute Benign prostatic hyperplasia with lower urinary tract symptoms acute Esophageal dysphagia acute Gastroesophageal reflux dise ase with esophagitis without hemorrhage acute Hypertension acute Lumbar spondylosis with myelopathy acute [facility] Work Phone: Evaluation note* Diagnosis Benign prostatic hyperplasia with urinary hesitancy- Primary [facility] this encounter [facility] Diagnosis Urologic disorders- Primary Unspecified disorder of urethra and urinary tract Benign prostatic hyperplasia with urinary hesitancy Elevated PSA Elevated prostate specific antigen (PSA) documented in this encounter [facility] Diagnosis Urinary retention- Primary Unspecified retention of urine Urologic disorders Unspecified disorder of urethra and urinary tract Benign prostatic hyperplasia with urinary hesitancy Elevated PSA Elevated prostate specific antigen (PSA) documented [facility] this [facility] Diagnosis Elevated PSA- Primary Elevated prostate specific antigen (PSA) Benign prostatic hyperplasia with urinary hesitancy Urologic disorders Unspecified disorder of urethra and urinary tract documented in this encounter [facility] Author Gene Nguyễn [facility] Note Date/Time June 12, 2024 2:23pm [facility] [address] [place] [address] Gastroenterology H&P Signed Patient: Rishi Babcock MR#: [id number] : 1940 Acct:[id number] Age/Sex: 83 / M Adm Date: 4 Loc: Room: Type: [facility] Attending Dr: Gene Nguyễn MD Copies to: Cameron Chambers,DO Gene Nguyễn MD~ Date of Service: 06/12/2024 HISTORY & PHYSICAL: Patient's history with special attention to the cardiovascular, pulmonary systems and the current problem was reviewed with the patient immediately prior to the procedure. Present medications and doses reviewed in the EMR. Allergies and pertinent laboratory tests were also reviewedat this time in the EMR. The physical examination, as below, was then performed. Indication, assessment and HPI: 83-year-old man here for EGD for evaluation of dysphagia Family history of GI malignancy? No PHYSICAL EXAMINATION General appearance: NAD Skin: No jaundice Head: NC/AT Eyes: Anicteric Neck: Supple Lungs: Normal respiratory effort, no use of accessory muscles Abdomen: nondistended Neuro: Ox3. REVIEW OF SYSTEMS Constitutional: Denies malaise, fevers Cardiovascular: Denies chest pain, palpitations Respiratory: Denies shortness of breath, wheezing Gastrointestinal: As per HPI Genitourinary: Denies dysuria, polyuria Musculoskeletal: Denies joint swelling, joint stiffness Neurological: Denies confusion, numbness, tingling Endocrine: Denies fatigue Written informed consent obtained from the patient. Risks (including but not limited to perforation, infection, bloating, bleeding, need for emergent surgeryand loss of life), benefits and alternatives explained and questions answered. The patient verbalized understanding. Based on history patient is an appropriate candidate for the procedure. Gene Nguyễn M.D. Documented By: Gene Nguyễn MD 06/12/24 142 Signed By: <Electronically signed by Gene Nguyễn MD> 06/12/24 1423 [facility] Work Phone: [facility] general Narrative - Reported* Type Description Date Medical History hypertension Medical History Arthritis Medical History Atrial fibrillation Surgical History cataract extraction Surgical History colonoscopy Surgical History cyst removal Surgical History prostate biopsy Surgical History ear reconstruction Surgical History leg surgery, fx RT distal tib/f ib Surgical History tonsillectomy Surgical History colonoscopy 05/2017 Surgical History e/o tongue lesion, Timmis 019 Hospitalization History See Above [facility]stream Other History general Narrative - Reported* Type [...] History Cystoscopy 09/2022 Hospitalization History See Above [facility] Other [facility] Other History general Narrative - Reported* Type Description Date Medical History hypertension Medical History Arthritis Medical History Atrial fibrillation Surgical History cataract extraction Surgical History colonoscopy Surgical History cyst removal Surgical History prostate biopsy Surgical History ear reconstruction Surgical History leg surgery, fx RT distal tib/f ib Surgical History tonsillectomy Surgical History colonoscopy 05/2017 Surgical History e/o tongue lesion, Timmis 9/3/2 019 Surgical History Cystoscopy 09/2022 Surgical History EGD 01/2023 Surgical History Colonoscopy 01/2023 Hospitalization History See Above Upstream Other Hospital Discharge instructions Additional Instructions DISCHARGE [...] NOT operate machinery such as power tools, [employer] mowers, [employer], sewing machines, etc. for 24 hours. - [...] NOT operate machinery such as power tools, [employer] mowers, [employer], sewing machines, etc. for 24 hours. - [...] 40 mg daily 30 minutes before breakfast [facility] Work Phone: Hospital Discharge instructions Additional [...] see your physician in two weeks. [ ][facility] Work Phone: Hospital Discharge instructions Additional Instructions Follow-up with your urologist Return as needed Take your Vicodin prescription and get it filled and take as needed for pain [facility] Work Phone: Hospital Discharge instructionsAmbulatory Orders* Referral to ENT Time Frame: 04/24/24, Location: None Selected [facility] Work Phone: InstructionsNot on filedocumented in this [...] Colon cancer screeni ng (Z12.11) Referral Organization [facility] linmadison Referring Provider First Name Cameron Referring Provider Last Name Trish Referring Provider Specialty Internal Me dicine Referred Organization [facility] Referred Provider Gene Nguyễn Referred Address [address] [place] [id number] Referred Provider Specialty Gastroentero logy Referral Priority [...] 01/03/2023 12:47:36 PM >received today, sent P2P Upstream Other Reason for Referral Reason Evaluate LLE EM G Diagnosis 1 Idiopathic periphera l neuropathy (G60.9) Referral Organization 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 urosurgery Referring Provider First Name Hiren Referring Provider Last Name Raydesmondgavin Referring Provider Specialty Neurosurger y Referred Organization [facility] Referred Provider Raul Orellana Referred Address [address] [place], [place],[address] Referred Provider Specialty Neurology Referral Priority Routine General Notes Chelle Garcia 022 02:51:14 PM >Received today and waiting for office notes to be locked Specialty Diagnoses / Procedures Referred By Cynthia hoffmann Referred To Contact Diagnoses Urinary retention Procedures Cystometrogram Ulises Goetz Jr., MD [address] [place] [id number] Referral ID Status Reason Start Date Expiration Date V isits Requested Visits Authorized [id number] Pending Review 04/24/2024 04/24/2025 1 1 Summary Purpose Family History Relationship Condition Age [...] Time Advance Directives No January 11 2:49pm Advance Directive Response Recorded Date/ Time Advance Directives No January 11 1:49pm Chief Complaint and Reason for Visit Chief Complaint Iron Deficiency Anem ia, Screening Chief Complaint Check Up Ref Dr Chambers, spondylosis and carpal tunnel m43.16 m47.816 Reason for Visit Benign prostatic hyp erplasia with lower urinary tract symptoms Cervical spondylosis with radiculopathy Chronic kidney disease (CKD) CTS (carpal tunnel syndrome) Left foot drop Lumbar spondylosis Sacroiliac inflammation Severe carpal tunnel syndrome of both wrists Spondylolisthesis, lumbar region Chief Complaint Check Up Ref Dr Chambers spondylosis and carpal tunnel m43.16 m47.816 f/u left CTR Reason for Visit Benign prostatic hyp erplasia with lower urinary tract symptoms Cervical spondylosis with radiculopathy Chronic kidney disease (CKD) CTS (carpal tunnel syndrome) Left foot drop Lumbar spondylosis Sacroiliac inflammation Severe carpal tunnel syndrome of both wrists Spondylolisthesis, lumbar region Chief Complaint Check Up Ref Dr Chambers spondylosis and carpal tunnel m43.16 m47.816 f/u [...] examination Chief Complaint Check Up Ref Dr Chambers spondylosis and carpal tunnel m43.16 m47.816 f/u [...] examination Chief Complaint Check Up Ref Dr Chambers spondylosis and carpal tunnel m43.16 m47.816 f/u [...] examination Chief Complaint Check Up Ref Dr Chambers spondylosis and carpal tunnel m43.16 m47.816 f/u [...] hyperplasia Chief Complaint Check Up Ref Dr Chambers spondylosis and carpal tunnel m43.16 m47.816 f/u left CTR Surgical Clearance for Carpal Tunnel Surgery 11/15 Carpal Tunnel Syndrome Carpal Tunnel Syndrome Rectal bleed/divertivular bleed Rectal bleed/divertivular bleed Amb Documentation [facility] follow up Reason for Visit Benign [...] bleed/divertivular bleed Rectal bleed/divertivular bleed Amb Documentation [facility] follow up 6 month follow up [...] hemorrhage Hematuria Hypertension Lumbar spondylosis with myelopathy Chief Complaint left shoulder inject ion cath issues back pain discuss recent testing results Reason for Visit Hypertension Left shoulder pain Lower extremity edema Primary osteoarthritis, left shoulder Benign prostatic hyperplasia with lower urinary tract symptoms Gastroesophageal reflux disease with esophagitis without hemorrhage Hematuria Hypertension Lumbar spondylosis with myelopathy Benign prostatic hyperplasia with lower urinary tract symptoms Esophageal dysphagia Gastroesophageal reflux disease with esophagitis without hemorrhage Hypertension Lumbar spondylosis with myelopathy Chief Complaint Admit Date left shoulder injection March 28 11:23am cath issues April 14, 2024 12:53pm back pain April 18, 2024 2:49pm discuss recent testing results April 302023 11:42am dysphagia, achalasia of cardia June 12, 2024 1:26pm dysphagia, achalasia of cardia June 12, 2024 2:22pm Reason for Visit Admit Date Hypertension March 28, 2024 11 :23am Left shoulder pain March 28, 2024 11 :23am Lower extremity edema March 28, 2024 11:23am Primary osteoarthritis, left shoulder Au germania 2023 11:23am Benign prostatic hyperplasia with lower urinary tract symptoms April 18, 2024 2:49pm Gastroesophageal reflux dise ase with esophagitis without hemorrhage April 18, 2024 2:49pm Hematuria April 18, 2024 2:49pm Hypertension April 18, 2024 2:49pm Lumbar spondylosis with myelopathy Rebecca carballo 2023 2:49pm Back pain April 18, 2024 2:49pm Achalasia of esophagus May 21 11:42am Esophageal dysphagia May 21, 2024 11:42am Gastroesophageal reflux dise ase with esophagitis without hemorrhage May 21, 2024 11:42am Hypertension May 21, 2024 1 1:42am Lumbar spondylosis with myelopathy Octob er 2023 11:42am Chief Complaint Admit Date dysphagia, achalasia of cardia June 12, 2024 1:26pm dysphagia, achalasia of cardia June 12, 2024 2:22pm CC Adult Risk Stratification July 112023 2:05pm wellness July 14, 2024 2:18pm shoulder injection August 25, 2024 1 :49pm Reason for Visit Admit Date Benign prostatic hyperplasia with lower urinary tract symptoms July 14, 2024 2:18pm Gastroesophageal reflux dise ase with esophagitis without hemorrhage July 14, 2024 2:18pm Hypercholesterolemia July 14, 2024 2:18pm Hypertension July 14, 2024 2:18pm Lumbar spondylosis with myelopathy Decem 2023 2:18pm Medicare annual wellness visit, leni salamanca July 14, 2024 2:18pm Hypertension August 25, 2024 1 :49pm Primary osteoarthritis, left shoulder Ted kim 2024 1:49pm Chief Complaint Admit Date shoulder injection August 25, 2024 1 :49pm 3 month f/u/discuss referral October 17, 2024 1:26pm Reason for Visit Admit Date Cervical spondylosis with radiculopathy August 25, 2024 1:49pm Hypertension August 25, 2024 1 :49pm Lumbar spondylosis with myelopathy Lavern arrington 2024 1:49pm Opiate analgesic use agreement exists Ted kim 2024 1:49pm Primary osteoarthritis, left shoulder Ted kim 2024 1:49pm Left shoulder pain August 25, 2024 1 :49pm Cervical spondylosis with radiculopathy October 17, 2024 1:26pm Hypertension October 17, 2024 1:2 6pm Additional Source Comments REASON FOR VISIT (unrecogniz ed section and content) Reason Comments Dysphagia Reason Comments Bladder Problem Reason Comments Follow-up 2 week f/u per Reason Comments Follow-up Urinary Retention an d Back pain, D/C with a [facility]. Reason Comments Bladder Problem Follow-up (unrecognized sect ion and content) No Status Records FoundNo Status Records FoundNo Status Records FoundNo Status Records FoundNo Status Records FoundNo Status Records Found INFORMATION SOURCE (unrecogn ized section and content) DATE CREATED AUTHOR 11/03/2022 [facility] DATE CREATED AUTHOR AUTHOR'S ORGANIZ ATION 02/13/2024 [facility] DATE CREATED AUTHOR AUTHOR'S ORGANIZ ATION 05/15/2024 [facility] EPIC DATE CREATED AUTHOR AUTHOR'S ORGANIZ ATION 06/21/2024 [facility] DATE CREATED AUTHOR AUTHOR'S ORGANIZ ATION 09/05/2024 [facility] DATE CREATED AUTHOR AUTHOR'S ORGANIZ ATION 10/13/2024 [facility] Care Teams (unrecognized sec tion and content) Team Status: Active Member Role Status Dates Cameron Chambers DO Primary Care Provider Active Team Status: Inactive Member Role Status Dates Cameron Chambers DO Primary Care Provide r, Attending Provider Active Start: March 28, 2024 End: March 28, 2024 Team Status: Active Member Role Status Dates Cameron Chambers DO Primary Care Provider Active Start: April 13, 2024 David Burleson Attending Provider Active Start: April 13, 2024 Team Status: Inactive Member Role Status Dates Cameron Chambers DO Primary Care Provider Active Start: April 14, 2024 End: April 14, 2024 Nhan Ramirez MD Emergency Provider Active Star t: April 14, 2024 End: April 14, 2024 Team Status: Active Member Role Status Dates Cameron Chambers DO Primary Care Provide r, Attending Provider Active Start: January 02, 2024 Team Status: Inactive Member Role Status Dates Cameron Chambers DO Primary Care Provide r, Attending Provider Active Start: January 11, 2024 End: January 11, 2024 Team Status: Inactive Member Role Status Mariaelena Chambers DO Primary Care Provider Active Gene Nguyễn MD Attending Provider Active Team Status: Inactive Member Role Status Mariaelena Cahmbers DO Primary Care Provide r, Attending Provider Active Start: September 26, 2023 End: September 26, 2023 Team Status: Inactive Member Role Status Mariaelena Chambers DO Primary Care Provider Active Start: October 10, 2023 End: October 10, 2023 LKUE Patel Attending Provider Active Start: October 10, 2023 End: October 10, 2023 Team Status: Inactive Member Role Status Mariaelena Chambers DO Primary Care Provider Active Start: October 11, 2023 End: October 11, 2023 LUKE Patel Attending Provider Active Start: October 11, 2023 End: October 11, 2023 Team Status: Inactive Member Role Status Mariaelena Chambers DO Primary Care Provider Active Start: October 18, 2023 End: October 18, 2023 John Adam MD Attending Provider Active Star t: October 18, 2023 End: October 18, 2023 Team Status: Inactive Member Role Status Mariaelena Chambers DO Primary Care Provider Active Start: October 24, 2023 End: October 24, 2023 Sushil Goodman MD Attending Provider Activ e Start: October 24, 2023 End: October 24, 2023 John Adam MD Referring Provider Active Star t: October 24, 2023 End: October 24, 2023 Team Status: Active Member Role Status Mariaelena Chambers DO Primary Care Provider Active Start: October 24, 2023 Sushil Goodman MD Attending Provider Activ e Start: October 24, 2023 Team Status: Inactive Member Role Status Mariaelena Chambers DO Primary Care Provider Active Start: October 24, 2023 End: October 24, 2023 Sushil Goodman MD Attending Provider Activ e Start: October 24, 2023 End: October 24, 2023 Team Status: Inactive Member Role Status Mariaelena Chambers DO Primary Care Provider Active Start: November 07, 2023 End: November 07, 2023 John Adam MD Attending Provider Active Star t: November 07, 2023 End: November 07, 2023 Team Status: Inactive Member Role Status Mariaelena Chambers DO Primary Care Provider Active Start: November 14, 2023 End: November 14, 2023 John Adam MD Attending Provider Active Star t: November 14, 2023 End: November 14, 2023 Team Status: Active Member Role Status Mariaelena Chambers DO Primary Care Provider Active Start: November 14, 2023 John Aadm MD Attending Provider, Other Provider A ctive Start: November 14, 2023 Team Status: Active Member Role Status Mariaelena Chambers DO Primary Care Provider Active Start: November 28, 2023 Catie Sanches PA-C Attending Provider Active Start: November 28, 2023 Team Status: Inactive Member Role Status Mariaelena Chambers DO Primary Care Provider Active Start: November [...] Team Status: Active Member Role Status Mariaelena Chambers DO Primary Care Provider Active Start: November 29, 2023 Lane Carlos DO Admit Provider Active Start: November 29, 2023 George Romero MD Other Provider Active Start: November 29, 2023 Asim Mathur MD Attending Provider Active S tart: November 29, 2023 Team Status: Active Member Role Status Mariaelena Chambers DO Primary Care Provider Active Start: December 04, 2023 BRENT Calloway Attending Provider Active St art: December 04, 2023 Team Status: Inactive Member Role Status Mariaelena Chambers DO Primary Care Provide r, Attending Provider Active Start: December 06, 2023 End: December 06, 2023 Team Status: Active Member Role Status Mariaelena Chambers DO Primary Care Provider Active Start: November [...] Status: Inactive Member Role Status Dates Cameron Chambers DO Primary Care Provide r, Attending Provider Active Start: April 18, 2024 End: April 18, 2024 Team Status: Active Member Role Status Dates Cameron Chambers DO Primary Care Provide r, Attending Provider Active Start: April 24, 2024 Swimming Teacher Relationship Specialty Start Date End Date Cameron Chambers MD [address] [place] [facility] [place] [address] PCP - General Internal Medicine 05/13/24 Swimming Teacher Relationship Specialty Start Date End Date Cameron Chambers MD [address] [place] [facility] [place] [address] PCP - General Internal Medicine 05/13/24 Swimming Teacher Relationship Specialty Start Date End Date Cameron Chambers MD [address] [place] [facility] [place] [address] PCP - General Internal Medicine 05/13/24 Team Status: Inactive Member Role Status Dates Cameron Chambers DO Primary Care Provide r, Attending Provider Active Start: May 21, 2024 End: May 21, 2024 Team Status: Inactive Member Role Status Dates Cameron Chambers DO Primary Care Provider Active Start: June 12, 2024 End: June 12, 2024 Gene Nguyễn MD Attending Provider Active Start: June 12, 2024 End: June 12, 2024 Team Status: Active Member Role Status Dates Cameron Chambers DO Primary Care Provider Active Start: June 12, 2024 Gene Nguyễn MD Attending Provider, Other Provider Active Start: June 12, 2024 Swimming Teacher Relationship Specialty Start Date End Date Cameron Chambers DO [address] [id number] PCP - General Internal Medicine 03/01/19 Team Status: Active Member Role Status Dates Cameron Chambers DO Primary Care Provide r, Attending Provider Active Start: July 11, 2024 Team Status: Inactive Member Role Status Dates Cameron Chambers DO Primary Care Provide r, Attending Provider Active Start: July 14, 2024 End: July 14, 2024 Team Status: Inactive Member Role Status Dates Cameron Chambers DO Primary Care Provide r, Attending Provider Active Start: August 25, 2024 End: August 25, 2024 Swimming Teacher Relationship Specialty Start Date End Date Cameron Chambers DO [address] [place] [address] PCP - General Internal Medicine 03/01/19 Swimming Teacher Relationship Specialty Start Date End Date Cameron Chambers DO [address] [place] [address] PCP - General Internal Medicine 03/01/19 Swimming Teacher Relationship Specialty Start Date End Date Cameron Chambers DO [address] [place] [address] PCP - General Internal Medicine 03/01/19 Swimming Teacher Relationship Specialty Start Date End Date Cameron Chambers DO [address] [place] [address] PCP - General Internal Medicine 03/01/19 Swimming Teacher Relationship Specialty Start Date End Date Cameron Chambers DO [address] [place] [address] PCP - General Internal Medicine 03/01/19 Swimming Teacher Relationship Specialty Start Date End Date Cameron Chambers DO [address] [place] [address] PCP - General Internal Medicine 03/01/19 Team Status: Inactive Member Role Status Dates Cameron Chambers DO Primary Care Provide r, Attending Provider Active Start: October 17, 2024 End: October 17, 2024 Swimming Teacher Relationship Specialty Start Date End Date Cameron Chambers DO [address] [place] [address] PCP - General Internal Medicine 03/01/19 Goals [...] BE BASED ON THE PRIMARY CLINICAL RECORDS. [employer] provides no warranty or guarantee of the accuracy or completeness of information in this document.
[2024-11-07 15:38] LABS: Basophils Absolute Auto 0.1 10^3/uL (0.0-0.1); Basophils Percent Auto 0.7 % (0.2-2.0); Eosinophils Absolute Auto 0.2 10^3/uL (0.0-0.7); Hematocrit 40.3 % (42.0-54.0); Hemoglobin 13.8 g/dL (14.0-18.0); Immature Granulocytes Abs Auto 0.03 10^3/uL (0.00-0.03); Immature Granulocytes Pct Auto 0.3 % (0.0-0.5); Lymphocytes Absolute Auto 1.6 10^3/uL (1.2-3.8); Mean Corpuscular HGB Conc 34.2 g/dL (29.9-35.2); Mean Corpuscular Hemoglobin 32.9 pg (25.9-34.0); Mean Corpuscular Volume 96.2 fL (80.0-94.0); Mean Platelet Volume 10.4 fL (9.5-13.5); Monocytes Absolute Auto 0.9 10^3/uL (0.3-0.8); Monocytes Percent Auto 9.7 % (1.7-12.0); Neutrophils Absolute Auto 6.5 10^3/uL (1.4-6.5); Neutrophils Percent Auto 70.3 % (43.0-75.0); Platelet Count 242 10^3/uL (150-450); Red Blood Count 4.19 10^6/uL (4.70-6.10); White Blood Count 9.2 10^3/uL (4.0-11.0)
[2024-11-07 15:56] LABS: Alanine Aminotransferase 23 U/L (16-63); Albumin Globulin Ratio 1.2; Albumin Level 3.7 g/dL (3.4-5.0); Alkaline Phosphatase 185 U/L (46-116); Aspartate Amino Transferase 19 U/L (15-37); BUN Creatinine Ratio 24.5; Bilirubin Total 0.6 mg/dL (0.2-1.0); Calcium 9.4 mg/dL (8.5-10.1); Carbon Dioxide 35.2 mmol/L (21.0-32.0); Chloride 100 mmol/L (98-107); Estimated GFR (African America >60 (>=60 mL/min/1.73m^2); Estimated GFR (Non-African Ame >60 (>=60 mL/min/1.73m^2); Globulin 3.2 g/dL; Glucose 106 mg/dL (74-106); Potassium 3.2 mmol/L (3.5-5.1); Sodium 142 mmol/L (136-145); Thyroid Stimulating Hormone 1.549 uIU/mL (0.358-3.740); Total Protein 6.9 g/dL (6.4-8.2)
[2024-11-08 04:07] LABS: Vitamin B12 >2000 pg/mL (232-1245)
[2024-11-11 14:10] LABS: Albumin 3.9 g/dL (2.9-4.4); Alpha-1-Globulin 0.3 g/dL (0.0-0.4); Alpha-2-Globulin 0.8 g/dL (0.4-1.0); Free Kappa Lt Chains,S 37.6 mg/L (3.3-19.4); Gamma Globulin 0.8 g/dL (0.4-1.8); Immunoglobulin A, Qn, Serum 146 mg/dL (61-437); Immunoglobulin G, Qn, Serum 858 mg/dL (603-1613); Immunoglobulin M, Qn, Serum 76 mg/dL (15-143); Kappa/Lambda Ratio,S 1.45 (0.26-1.65); Protein, Total 6.9 g/dL (6.0-8.5)
== END 2024-11-07 15:03 | disposition home or self-care (01) ==
LOC: LAB 15:11
PROVIDERS: PCP Internal Medicine; Visit Provider Internal Medicine
DX: R20.2 Paresthesia of skin (principal); R53.83 Other fatigue; I10 Essential (primary) hypertension; D64.9 Anemia, unspecified
CPT/HCPCS: 36415; 80053; 82607; 82728; 82784; 83521; 84155; 84165; 84443; 85025

== ENCOUNTER 2025-05-20 13:50 | Outpatient (OUT) | payer MEDICARE, SELFPAY ==
--- OUTSIDE RECORDS SUMMARY | 2025-05-20 13:59 | XMS_ITS | CCD ---
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 Name Role Phone Hiren Da Silva Unavailable Cameron Gaming Unavailable MISC, DR SAMUEL [...] Unavailable DO Cameron Gaming Primary Care Provider [phone] LUKE Noguera Attending Provider MD Sushil Goodman Attending Provider MD John Adam Attending Provider DO Lane Carlos Admit Provider [phone] MD George Romero Attending Provider [phone] MD Asim Mathur Other Provider MD Syed Buchanan Other Provider DO Cameron Gaming Primary Care Provider [phone] MD Syed Buchanan Other Provider Damon PATEL Attending Unavailable Syed Buchanan Referring Unavailanthony e Syed Buchanan Attending Unavailabl e Ball, DO Cameron Primary Care Provider MD Nhan Ramirez Emergency Provider ALEXANDER DAMON Attending Unavailable Cameron Gaming MD Primary Care Provider Ball DO, Cameron Primary Care Provider Nhan Ramirez MD Emergency Provider Gene Nguyễn MD Attending Provider [phone] Mekhi RAMOS, Cameron Cuadra Primary Care Provider Ball DO, Cameron Primary Care Provider BALL, CAMERON E Primary Care Unavailable JOHANNA RUSSELL Attending Unavailable BALL, CAMERON E Referring Unavailable BALL, CAMERON E Primary Care Unavailable ULISES GOETZ JR Attending Unavailable ULISES GOETZ JR Referring Unavailable BALL, CAMERON E Primary Care Unavailable Ball Cameron RAMOS Primary Care Provider John Adam MD Attending Provider [phone] Cameron Gaming Primary Care Unavailable Asaad, Imad Admitting Unavailable Asaad, Imad Attending Unavailable Mekhi, Cameron Primary Care Unavailable Nhan Ramirez Admitting Unavailable Nhan Ramirez Attending Unavailable Mekhi, Cameron Primary Care Unavailable Adam, John E Admitting Unavailable Adam, John E Attending Unavailable Adam, John E Admitting Unavailable Adam, John E Attending Unavailable Ball, Cameron Primary Care Unavailable Ball , Cameron Primary Care Provider John Adam MD Attending Provider Cameron Gaming DO Attending Provider [phone] ULISES GOETZ JR Attending Unavailable BALL, CAMERON E Referring Unavailable BALL, CAMERON E Primary Care Unavailable ULISES GOETZ JR Attending Unavailable BALL, CAMERON E Referring Unavailable BALL, CAMERON E Primary Care Unavailable HARSHIL PALENCIA G Attending Unavailable BALL, CAMERON E Referring Unavailable BALL, CAMERON E Primary Care Unavailable LISA WALTER Attending Unavailable BALL, CAMERON E Referring Unavailable BALL, CAMERON E Primary Care Unavailable ULISES GOETZ JR Attending Unavailable BALL, CAMERON E Referring Unavailable BALL, CAMERON E Primary Care Unavailable SOFY , ULISES Mahajan Attending Unavailable BALL, CAMERON E Referring Unavailable BALL, CAMERON E Primary Care Unavailable SOFY , ULISES Mahajan Attending Unavailable BALL, CAMERON E Referring Unavailable BALL, CAMERON E Primary Care Unavailable HARSHIL PALENCIA Attending Unavailable BALL, CAMERON E Referring Unavailable BALL, CAMERON E Primary Care Unavailable SOFY ULISES SHAW Attending Unavailable BALL, CAMERON E Referring Unavailable BALL, CAMERON E Primary Care Unavailable SOFY ULISES SHAW Attending Unavailable BALL, CAMERON E Referring Unavailable BALL, CAMERON E Primary Care Unavailable KEKE ORTEZ I Attending Unavailable BALL, CAMERON E Referring Unavailable BALL, CAMERON E Primary Care Unavailable WALTER LISA G Attending Unavailable BALL, CAMERON E Referring Unavailable BALL, CAMERON E Primary Care Unavailable SOFY , ULISES Mahajan Attending Unavailable BALL, CAMERON E Referring Unavailable BALL, CAMERON E Primary Care Unavailable KEKE ORTEZ I Attending Unavailable BALL, CAMERON E Referring Unavailable BALL, CAMERON E Primary Care Unavailable Allergies Allergy ClassificationReported Allergen(s)Allergy TypeDate of OnsetReaction(s) Facility (20 sources)Ciprofloxacin; Translations: [CIPROFLOXACIN]Drug [id number] [facility], [facility] ([facility])Ciprofloxacin; Translations: [Cipro]Drug [id number] (8 sources)HMG-CoA reductase inhibitorDrug allergyExchange CorporationSaint Joseph's Hospital [employer] Other (9 sources)tamsulosinDrug Awhbkam16-09-6371Pcpnfxc, Unknown ReactionAdena [facility] Medical Center (1 source)tamsulosinDrug AllergyExchange CorporationSaint Joseph's Hospital [employer] Other (2 sources)Hsdqizw-QBU-GpK Reductase InhibitorAllergy to iztfiiuun22-63-4035 Unknown ReactionAdena [facility] Center (1 source)CiprofloxacinDrug Zzjmkec47-65-7912VzenrzqhrAdena Regional [facility] Center Repository Medications Current Medications MedicationDrug Class(es)DatesSig (Normalized)Sig (Original)acetaminophen 325 mg / HYDROcodone bitartrate 5 mg oral tablet (3 sources)Opioid AgonistStart: 32-69-4044evaj 1 tablet by mouth every six hours as needed for painHydrocodone-Acetaminophen 5-325 mg tablet Active 1 - 2 TAB PO Q6H as needed for pain 20 December 05, 2024 Complies with drug therapyaspirin 81 mg delayed release oral tablet (20 sources)Platelet Aggregation Inhibitor, Nonsteroidal Anti-inflammatory Drug Start: 61-46-6065derm 1 tablet by mouth once daily in the morningAspirin (Adult Aspirin Regimen) 81 mg tablet,delayed release (DR/EC) Active 81 MG PO Every morning September 26, 2023 1:00am Complies with drug therapyStart: 02-26-2023 End: 16-65-0552oaio 1 capsule by mouth once dailyAspirin 81 mg Capsule Discontinued 81 MG PO Daily February 26, 2023 12:00am September 21, 2023 3:14pm Start: 04-22-2020 End: 15-93-8914waww 1 tablet by mouth once dailyAspirin 81 mg Tablet,Delayed Release (Dr/Ec) Discontinued 81 MG PO Daily April 22, 2020 12:00am February 26, 2023 8:03am On Hold: hold until Dr Da Silva resumestake 1 tablet by mouth once dailyAspirin 81 81 MG 1 tablet Orally Once a day Activebaclofen 10 mg oral tablet (20 sources)gamma-Aminobutyric Acid-ergic Agonisttake 1 tablet by mouth in the morningbaclofen (LIORESAL) 10 mg tablet Take 1 tablet (10 mg total) by mouth in the morning. Activecefadroxil 500 mg oral capsule (1 source)Cephalosporin AntibacterialStart: 04-24-2024 End: 05-76-2006efpx 1 capsule by mouth every hourcefaDROXil (DURICEF) 500 mg capsule Take 1 capsule by mouth 1 hour prior to bladder testing 1 capsule 04/24/2024 04/24/2024 Activecelecoxib 200 mg oral capsule (20 sources)Nonsteroidal Anti-inflammatory DrugStart: 71-80-8987llvx 1 capsule by mouth once daily in the morningCelecoxib (Celebrex) 200 mg capsule Active 200 MG PO Every morning November 21, 2024 12:00am Complies with drug therapyStart: 09-26-2023 End: 99-12-8471wtmd 1 capsule by mouth once daily in the morningCelecoxib (Celebrex) 200 mg capsule Discontinued 200 MG PO Every morning September 26, 2023 1:00amMa2023 11:15pmStart: 02-26-2023 End: 45-21-6805lfum 1 capsule by mouth once dailyCelecoxib 200 mg Capsule Discontinued 200 MG PO Daily February 26, 2023 12:00am September 21, 2023 3:14pm dutasteride 0.5 mg oral capsule (20 sources)5-alpha Reductase InhibitorStart: 20-15-9177ebjn 1 capsule by mouth in the morningdutasteride (AVODART) 0.5 mg capsule Take 1 capsule (0.5 mg total) by mouth in the morning. 90 capsule 3 04/10/2025 ActiveStart: 12-01-2023 End: 38-74-2633ieis 1 capsule by mouth in the morningdutasteride (AVODART) 0.5 mg capsule Take 1 capsule (0.5 mg total) by mouth in the morning. 90 capsule 3 11/07/2024 04/10/2025 Discontinued (Reorder)gabapentin 300 mg oral capsule (20 sources)Anti-epileptic AgentStart: 28-91-3656dure 1 capsule by mouth twice dailyGabapentin 300 mg capsule Active 300 MG PO Twice daily November 21, 2024 12:00am Complies with drug therapyStart: 10-24-2023 End: 61-97-9131erab 2 capsules by mouth once daily at bedtimeGabapentin 100 mg capsule Discontinued 200 MG PO every day in the morning and at bedtime October 24, 2023 12:00am May 29, 2024 9:23amStart: 55-48-7577zqcz 200 mg by mouth once daily at bedtimeGabapentin Active 200 MG PO every day in the morning and at bedtime October 24, 2023 12:00amStart: 86-36-1759wile 300 mg by mouth once daily at bedtimeGabapentin Active 300 MG PO every day in the morning and at bedtime October 24, 2023 12:00amStart: 12-13-2022 End: 02-45-2932gxuzlzcgpo (NEURONTIN) 100 mg capsule 12/13/2022 ActiveStart: 12-13-2022 End: 92-97-4970yosk 1 capsule by mouth once daily in the morning, then take 3 capsules by mouth once daily at bedtimegabapentin (Neurontin) 100 MG capsule Indications: Polyneuropathy TAKE 1 CAPSULE BY MOUTH EVERY MORNING AND TAKE THREE CAPSULES BY MOUTH EVERY NIGHT AT BEDTIME 120 capsule 2 04/07/2024 05/13/2024 Discontinued (Therapy completed)hydroCHLOROthiazide 25 mg oral tablet (20 sources)Thiazide DiureticStart: 20-01-3771mrtj 1 tablet by mouth once daily in the morningHydrochlorothiazide 25 mg tablet Active 0 .ROUTE .COMPLEX 90 February 01, 2025 7:43am TAKE 1 TABLET BYMOUTH EVERY MORNING Complies with drug therapy Start: 02-04-2024 End: 72-01-2517tbmy 1 tablet by mouth once dailyhydroCHLOROthiazide (HYDRODIURIL) 25 mg tablet Take 1 tablet (25 mg total) by mouth daily. ActiveStart: 01-18-2024 End: 57-17-5766paia 2 tablets by mouth once daily in the morning Hydrochlorothiazide 12.5 mg tablet Discontinued 25 MG PO Every morning 60 January 18, 2024 4:23pmJuly 2023 12:39pmStart: 01-18-2024 End: 71-18-0189dlxj 25 mg by mouth once daily in the morningHydrochlorothiazide Discontinued 25 MG PO Every morning 60 January 18, 2024 4:23pm February 04, 2024 12:39pmStart: 01-15-2024 End: 29-19-7961trsv 1 tablet by mouth once daily in the morning Hydrochlorothiazide 12.5 mg tablet Discontinued 12.5 MG PO Every morning January 15, 2024 12:00am January 18, 2024 4:23pmhydroCHLOROthiazide 12.5 mg / lisinopril 10 mg oral tablet (20 sources)Thiazide Diuretic, Angiotensin Converting Enzyme InhibitorStart: 06-26-2022 End: 93-24-8664zqkapfnphi-hydroCHLOROthiazide (PRINZIDE,ZESTORETIC) 10-12.5 mg per tablet 06/26/2022 06/20/2024 Discontinued (Discontinued by another clinician)Start: 04-22-2020 End: 77-69-2633hpeu 1 tablet by mouth once daily in the morningLisinopril- Hydrochlorothiazide 10-12.5 mg tablet Discontinued 1 TAB PO Every morning April 22, 2020 12:00am May 29, 2024 9:23am On Hold: Resume on 12/04/23.take 1 tablet by mouth every twenty-four ibhpalnymhftl-lgqs-CC-calcium &mins (THERAGRAN-M) 9 mg iron-400 mcg tablet (20 sources)dhcnozfh-jtib-EP-calcium &mins (THERAGRAN-M) 9 mg iron-400 mcg tablet Take 1 tablet by mouth inthe morning. ActiveMultivitamin preparation (20 sources)Start: 76-55-3193kvri 1 tablet by mouth once daily at bedtime Multivitamin Active 1 TAB PO Daily at bedtime September 26, 2023 1:00amStart: 63-53-9904qhai 1 tablet by mouth once dailyMultivitamin Active 1 TAB PO Daily September 26, 2023 1:00amStart: 02-26-2023 End: 75-88-2283yhnx 1 tablet by mouth once dailyMultivitamin Discontinued 1 TAB PO Daily February 26, 2023 12:00am September 21, 2023 3:15pmStart: 52-65-6559rkoc 1 tablet by mouth once dailyMultivitamin Active 1 TAB PO Daily February 26, 2023 12:00amMultivitamin tablet (8 sources)Start: 66-68-7084dgmf 1 tablet by mouth once daily in the evening Multivitamin tablet Active 1 TAB PO Every evening September 26, 2023 1:00am Complies with drug therapyStart: 43-20-2327lcod 1 tablet by mouth once daily in the eveningMultivitamin tablet Active 1 TAB PO Every evening September 26, 2023 1:00amStart: 86-90-7604gzjl 1 tablet by mouth once daily at bedtimeMultivitamin tablet Active 1 TAB PO Daily at bedtime September 26, 2023 1:00amStart: 27-24-5494gpqu 1 tablet by mouth once daily at bedtimeMultivitamin tablet Active 1 TAB PO Daily at bedtime September 26, 2023 12:00ammupirocin 0.02 mg/mg topical ointment (5 sources)RNA Synthetase Inhibitor AntibacterialStart: 34-82-4642Eksztnapn 2 % 1 application Externally Twice a day for 10 days 18 Dereje, 2023 Activeomeprazole 40 mg delayed release oral capsule (20 sources)Proton Pump InhibitorStart: 02-26-2023 End: 63-06-8484vpjowranry (PriLOSEC) 40 mg capsule 11/07/2023 Activepolyethylene glycol 3350 635168 mg / potassium chloride 2970 mg / sodium bicarbonate 6740 mg / sodium chloride 5860 mg / sodium sulfate 61100 mg powder for oral solution (6 sources)Osmotic LaxativeStart: 01-57-9700swsy 236 g by mouth once daily Golytely 236 GM 236 GM Orally THE DAY BEFORE THE COLONOSCOPY for 1 days Dec, ActiveStart: 12-83-0575zwa palmetto (Serenoa repens) 450 MG capsule (4 sources)Start: 27-93-6471glm palmetto (Serenoa repens) 450 MG capsule Twice daily 09/26/2023 Activetamsulosin hydrochloride 0.4 mg oral capsule (20 sources)alpha-Adrenergic BlockerStart: 11-07-2024 End: 81-23-4619turx 1 capsule by mouth once dailytamsulosin (FLOMAX) 0.4 mg capsule Take 1 capsule (0.4 mg total) by mouth nightly. 180 capsule 3 11/07/2024 04/10/2025 Discontinued (Alternate therapy)Start: 04-24-2024 End: 11-09-2425zvkg 1 capsule by mouth every twenty-four hours at bedtime tamsulosin (Flomax) 0.4 MG 24 hr capsule Take 0.8 mg by mouth at bedtime 04/24/2024 05/13/2024 Discontinued (Therapy completed)Start: 02-26-2023 End: 39-60-9550ihwe 1 capsule by mouth twice dailyTamsulosin 0.4 mg capsule Discontinued 0.4 MG PO Twice daily September 26, 2023 12:17pm March 04, 2024 1:13pmStart: 12-22-2022 End: 93-90-9400bmgq 2 capsules by mouth once dailytamsulosin (FLOMAX) 0.4 mg capsule Take 2 capsules (0.8 mg total) by mouth nightly. 180 capsule 3 ActiveStart: 11-01-2022 End: 49-98-2566Nztknbajlx 0.4 mg capsule Discontinued 0.4 MG PO February 26, 2023 12:00am September 26, 2023 12:19pmtraMADol hydrochloride 50 mg oral tablet (14 sources)Opioid AgonistStart: 33-97-0002ibjv 1 tablet by mouth every eight hours as needed for paintraMADoL (ULTRAM) 50 mg tablet Take 1 tablet (50 mg total) by mouth every 8 (eight) hours as neededfor pain (1 tab in the morning and 1 tablet in the evening before bed). 03/17/2025 ActiveStart: 11-25-2024 End: 57-91-7171hwnp 1 tablet by mouth twice daily as needed for painTramadol 50 mg tablet Active 50 MG PO Twice daily as needed for pain 60 March 16, 2025 2:20pmComplies with drug therapyStart: 08-25-2024 End: 31-49-2747vqze 1 tablet by mouth twice daily as needed for painTramadol 50 mg tablet Discontinued 50 MG PO Twice daily as needed for pain 14 August 25, 2024 1:00am November 21, 2024 11:48amtriamcinolone acetonide 1 mg/ml topical cream (16 sources)CorticosteroidStart: 01-14-2024 End: 10-70-3858prxolvipebdlt (Kenalog) 0.1 % cream Twice daily 01/14/2024 05/13/2024 Discontinued (Therapy completed)Start: 01-14-2024 End: 67-71-1915Qowdgspwvmeir Acetonide 0.1 % cream Discontinued 1 APPLIC TOPICAL Twice daily January 132:00am May 29, 2024 9:24amvitamin b12 1 mg oral tablet (20 sources)Vitamin W73qgjs 1 tablet by mouth in the morningcyanocobalamin 1000 MCG tablet Take 1 tablet (1,000 mcg total) by mouth in the morning. Active Completed/Discontinued Medications MedicationDrug Class(es)DatesSig (Normalized)Sig (Original)amoxicillin 875 mg / clavulanate 125 mg oral tablet (13 sources)Penicillin-class AntibacterialStart: 01-23-2024 End: 51-55-1479njts 1 tablet by mouth every twelve hoursAmoxicillin-Pot Clavulanate 875-125 mg tablet Discontinued 1 TAB PO Every 12 hours 14 January 23, 2024 12:00am March 28, 2024 12:01pmcephalexin 500 mg oral capsule (20 sources)Cephalosporin AntibacterialStart: 12-05-2024 End: 01-20-8249yqks 1 capsule by mouth three times dailyCephalexin 500 mg capsule Discontinued 500 MG PO Three times daily December 05, 2024 12:00am December 18, 2024 11:20amStart: 11-07-2024 End: 87-39-9897LOGQefgwim (KEFLEX) 500 mg capsule Take 1 capsule (500 mg total) by mouth in the morning and 1 capsule (500 mg total) at noon and 1 capsule (500 mg total) in the evening and 1 capsule (500 mg total) before bedtime. Do all this for 10 days. 40 capsule 11/07/2024 11/17/2024 ActiveStart: 04-14-2024 End: 37-83-2406abqa 1 capsule by mouth every eight hoursCephalexin 500 mg Capsule Discontinued 500 MG PO Every 8 hours 16 02April 14, 2024 12:00am May 29, 2024 9:22amStart: 11-14-2023 End: 95-04-8927uqzz 1 capsule by mouth three times dailyCephalexin 500 mg capsule Discontinued 500 MG PO Three times daily November 14, 2023 12:00am November 28, 2023 11:15pmdiazePAM 5 mg oral tablet (20 sources)BenzodiazepineStart: 04-28-2020 End: 33-39-2989mrku 1 tablet by mouth four times daily as needed for muscle spasmsDiazepam 5 mg Tablet Discontinued 5 MG PO Four times daily as needed for Muscle Spasm 40 April 28, 2020 12:00am February 26, 2023 8:03am doxycycline hyclate 100 mg oral capsule (20 sources)Tetracycline-class DrugStart: 01-14-2024 End: 27-52-2416stfl 1 capsule by mouth twice dailyDoxycycline Hyclate 100 mg capsule Discontinued 100 MG PO Twice daily 14 January 14, 2024 12:00am March 28, 2024 12:01pmStart: 80-42-1692cgkd 1 capsule by mouth twice daily as needed Doxycycline Hyclate 100 MG 1 capsule Orally twice daily for 7 days Jan, Not-Taking/PRNfamotidine 20 mg oral tablet (11 sources)Histamine-2 Receptor AntagonistStart: 05-29-2024 End: 72-26-3991axta 1 tablet by mouth once dailyFamotidine (Acid Controller) 20 mg tablet Discontinued 20 MG PO Daily May 29, 2024 12:00am November 21, 2024 11:47amfamotidine (Pepcid) 10 MG tablet Take 20 mg by mouth Active lisinopril 5 mg oral tablet (13 sources)Angiotensin Converting Enzyme InhibitorStart: 01-18-2024 End: 70-47-0449kmik 1 tablet by mouth once dailyLisinopril 5 mg tablet Discontinued 5 MG PO Daily January 18, 2024 12:00am January 21, 2024 1:28pm meloxicam 15 mg oral tablet (20 sources)Nonsteroidal Anti-inflammatory DrugStart: 04-22-2020 End: 70-67-2343awhr 1 tablet by mouth once dailyMeloxicam 15 mg tablet Discontinued 15 MG PO Daily April 22, 2020 12:00am April 28, 2020 8:30am24 hr metoprolol succinate 25 mg extended release oral tablet (20 sources)beta-Adrenergic BlockerStart: 07-07-2024 End: 14-18-6369pqzm 1 tablet by mouth once dailyMetoprolol Succinate 25 mg tablet extended release 24 hr Discontinued 25 MG PO Daily 90 2023 4:34pm November 21, 2024 11:50amStart: 07-07-2024 End: 55-17-2628lddk 1 tablet by mouth once dailyMetoprolol Succinate 50 mg tablet extended release 24 hr Discontinued 50 MG PO Daily July 07, 2024 1:00am July 07, 2024 5:19pmStart: 03-29-2024 End: 56-46-4497xogndfdyvq succinate XL (Toprol-XL) 25 MG 24 hr tablet 03/29/2024 05/13/2024 Discontinued (Therapy completed)Start: 02-26-2023 End: 84-02-3578eqqw 1 tablet by mouth once daily in the morningMetoprolol Succinate 25 mg tablet extended release 24 hr Discontinued 25 MG PO Every morning February 26, 2023 12:00am May 29, 2024 9:23amStart: 04-22-2020 End: 90-48-9120vvvx 1 tablet by mouth twice dailyMetoprolol Tartrate 50 mg tablet Discontinued 50 MG PO Twice daily April 22, 2020 12:00am February 26, 2023 7:58amtake 1 tablet by mouth every twenty-four hours in the morning metoprolol succinate XL (TOPROL XL) 50 mg 24 hr tablet Take 1 tablet (50 mg total) by mouth in the morning. YclkszVlqpirlc-Vrm-Vvdab-Vit K-Lycop (Men's Multivitamin) 400-20-300 mcg Tablet (20 sources)Start: 04-22-2020 End: 41-20-3789cyjm 1 tablet by mouth once fxbqmTihbjqng-Tvw-Jkoqz-Vit K-Lycop (Men's Multivitamin) 400-20-300 mcg Tablet Discontinued 1 TAB PO Daily April 21, 2020 11:00pm February 26, 2023 7:03amStart: 04-22-2020 End: 78-39-8520iwdg 1 tablet by mouth once vphqcIjrvdued-Nxt-Qxpgl-Vit K-Lycop (Men's Multivitamin) 400-20-300 mcg Tablet Discontinued 1 TAB PO Daily April 22, 2020 12:00am February 26, 2023 8:03amMultivitamin Tablet (8 sources)Start: 02-26-2023 End: 43-29-6251ppap 1 tablet by mouth once dailyMultivitamin Tablet Discontinued 1 TAB PO Daily February 26, 2023 12:00am September 21, 2023 3:15pmStart: 02-26-2023 End: 91-13-7902mqwv 1 tablet by mouth once dailyMultivitamin Tablet Discontinued 1 TAB PO Daily February 25, 2023 11:00pm September 21, 2023 2:15pmondansetron 4 mg disintegrating oral tablet (20 sources)Serotonin-3 Receptor AntagonistStart: 08-41-4960chxjhmsckfi ODT (Zofran-ODT) 4 MG disintegrating tablet .COMPLEX 01/02/2024 ActiveStart: 12-20-2023 End: 78-04-3314vswg 1 tablet by mouth every six hours as needed for nausea and vomitingOndansetron 4 mg tablet,disintegrating Discontinued 0 .ROUTE .COMPLEX January 02, 2024 8:39pm November 21, 2024 11:48am DISSOLVE ONE TABLET BY MOUTH EVERY 6 HOURS NEEDED FOR NAUSEA AND/OR VOMITINGFOR 5 DAYSStart: 12-06-2023 End: 95-46-7579aegs 1 tablet by mouth every six hours as needed for nausea and vomitingOndansetron 4 mg tablet,disintegrating Discontinued 4 MG PO Every 6 hours as needed for nausea and vomiting 20 December 06, 2023 12:00am December 20, 2023 3:36pmoxyCODONE hydrochloride 5 mg oral tablet (20 sources)Opioid AgonistStart: 11-14-2023 End: 76-32-4164ajjw 5-10 mg by mouth every six hours as needed for painOxycodone 5 mg tablet Discontinued 5 - 10 MG PO Q6H as needed for Pain 40 8 November 14, 2023 November 28, 2023 11:18pmStart: 04-28-2020 End: 98-37-6346qmzc 1 tablet by mouth every four to six hours as needed for pain Oxycodone 5 mg Tablet Discontinued 5 MG PO EVERY 4-6 HOURS as needed for Pain Scale 1 - 5 70 14 April 28, 2020 February 26, 2023 8:03ampolysaccharide iron complex 150 mg oral capsule (19 sources)Start: 12-01-2023 End: 30-10-3301Yobvwwbjdfrsud Iron Complex 150 mg iron capsule Discontinued 150 MG PO Every 48 hours December 01, 2023 12:00am May 29, 2024 9:24amSaw Keller (20 sources)Start: 09-26-2023 End: 75-03-9678vuys 1 capsule by mouth twice daily at mealtimeSaw Keller 450 mg capsule Discontinued 450 MG PO Twice daily September 26, 2023 1:00am May 29, 2024 9:24am give with food (meal/snack)Start: 09-26-2023 End: 29-45-3719kjgi 1 capsule by mouth twice daily at mealtimeSaw Keller 450 mg capsule Discontinued 450 MG PO Twice daily September 26, 2023 12:00am May 29, 2024 8:24am give with food (meal/snack)Start: 11-25-9353ksev 450 mg by mouth twice daily at mealtimeSaw Keller Active 450 MG PO Twice daily September 26, 2023 1:00am give with food (meal/snack)Start: 02-26-2023 End: 94-01-4771csfh 1 capsule by mouth twice daily at mealtimeSaw Keller 450 mg Capsule Discontinued 450 MG PO Twice daily February 26, 2023 12:00am September 21, 2023 3:15pm give with food (meal/snack)Start: 02-26-2023 End: 31-17-6692jpqf 1 capsule by mouth twice daily at mealtimeSaw Keller 450 mg Capsule Discontinued 450 MG PO Twice daily February 25, 2023 11:00pm September 21, 2023 2:15pm give with food (meal/snack)Start: 02-26-2023 End: 49-11-0632zfqy 450 mg by mouth twice daily at mealtimeSaw Keller Discontinued 450 MG PO Twice daily February 26, 2023 12:00am September 21, 2023 3:15pm give with food (meal/snack)Start: 41-89-1867omkj 450 mg by mouth twice daily at mealtimeSaw Keller Active 450 MG PO Twice daily February 26, 2023 12:00am give with food (meal/snack)sulfamethoxazole 800 mg / trimethoprim 160 mg oral tablet (20 sources)Dihydrofolate Reductase Inhibitor Antibacterial, Sulfonamide AntimicrobialStart: 09-21-2023 End: 64-14-1819eibp 1 tablet by mouth twice dailySulfamethoxazole-Trimethoprim (Bactrim Ds) 800-160 mg tablet Discontinued 1 TAB PO Twice daily September 21, 2023 1:00am September 26, 2023 11:11amStart: 54-01-1041ijoh 1 tablet by mouth every twelve hoursBactrim DS 800-160 MG 1 tablet Orally Twice a day for 14 days Feb, Active Problems Active Problems Problem ClassificationProblemDateDocumented DateEpisodic/ChronicAcquired foot deformities (20 sources)Foot-drop; Translations: [Foot drop, left foot]Onset: 05-05-2024 57-16-6572QqoymdlzWajpm bronchitis (8 sources)Acute bronchitis due to other specified organisms; Translations: [Acute bronchitis]EpisodicAcute posthemorrhagic anemia (16 sources)Acute posthemorrhagic anemia; Translations: [Acute posthemorrhagic anemia]Onset: [id number] dysrhythmias (20 sources)Unspecified atrial flutter; Translations: [Supraventricular tachycardia]Onset: [id number] kidney disease (20 sources)Chronic kidney disease, unspecified; Translations: [Chronic kidney disease stage 3]Onset: 955900-01-1321JsbzfvlAdqnzwz kidney disease (4 sources)Chronic kidney disease; Translations: [CHRONIC KIDNEY DISEASE STAGE 3A]Onset: 33-16-8051Qprzyclkvf and other anemia (19 sources)Iron deficiency anemia due to blood loss; Translations: [Iron deficiency anemia secondary to blood loss (chronic)]85-38-3098AlziavpDiidtzpqsu and other anemia (2 sources)Iron deficiency anemia secondary to blood loss (chronic)Chronic Deficiency and other anemia (5 sources)Anemia, unspecified; Translations: [ANEMIA UNSPECIFIED]Onset: 75-35-7219FcpxxlktFcbbwehjxb and other anemia (2 sources)Anemia; Translations: [Anemia, unspecified]14-04-2831OyinkzcaOagtgrce of mouth; excluding dental (16 sources)Lesion of tongue; Translations: [Other diseases of tongue]Episodic Disorders of lipid metabolism (20 sources)Familial hypercholesterolemia; 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] Onset: 745003-78-1810JqdhevcZlvrhptllqqqui and diverticulitis (20 sources)Diverticular disease; Translations: [Diverticulosis of intestine, part unspecified, without perforation or abscess without bleeding]Onset: 979732-02-1710BchweefB Codes: Natural/environment (1 source)Bitten or stung by nonvenomous insect and other nonvenomous arthropods, initial encounterEpisodicEsophageal disorders (20 sources)Gastro-esophageal reflux disease with esophagitis; Translations: [Gastroesophageal reflux disease with esophagitis without hemorrhage]Onset: 101499-69-2158YvxhowtKrwimjdqkb disorders (10 sources)Achalasia of esophagus; Translations: [Achalasia of cardia] 82-67-3100YgdvyencNqtmbkqtb hypertension (20 sources)Essential hypertension; Translations: [Essential (primary) hypertension]Onset: 83-63-6879EwwixiyGhqum and electrolyte disorders (1 source)DehydrationEpisodicGastritis and duodenitis (1 source)Acute gastritis with bleedingEpisodicGastrointestinal hemorrhage (20 sources)Acute lower gastrointestinal hemorrhage; Translations: [Gastrointestinal hemorrhage, unspecified]Onset: 646978-78-1089Yswocydy Genitourinary symptoms and ill-defined conditions (20 sources)Other retention of urine; Translations: [Finding of sensation of bladder]Onset: 19-31-9388HnwsxmekPunvmpkakmd of prostate (20 sources)Benign prostatic hypertrophy with outflow obstruction; Translations: [Benign prostatic hyperplasia with lower urinary tract symptoms]Onset: 12-87-5413IpcsgmbMczinqj on above:pt refusing wiley presentlyHypertension with complications and secondary hypertension (12 sources)Hypertensive chronic kidney disease with stage 1 through stage 4 chronic kidney disease, or unspecified chronic kidney disease; Translations: [Malignant hypertensive chronic kidney disease]Onset: 38-82-5828Rcjetck Immunizations and screening for infectious disease (8 sources)Encounter for immunization; Translations: [Vaccination given]Episodic Inflammatory conditions of male genital organs (1 source)Acute prostatitisEpisodicNausea and vomiting (11 sources)Nausea; Translations: [Nausea] Resolved: 146144-02-2788PdxxpczmPzgl wounds of head; neck; and trunk (8 sources)Laceration without foreign body of scalp, subsequent encounter; Translations: [Laceration of head without foreign body]EpisodicOsteoarthritis (20 sources)Primary osteoarthritis, right shoulder; Translations: [Localized, primary osteoarthritis of the shoulder region]Onset: 420425-58-7582Gngogif Other acquired deformities (16 sources)Spondylolisthesis; Translations: [Spondylolisthesis, cervical region]EpisodicOther acquired deformities (9 sources)Lumbar spondylolisthesis; Translations: [Spondylolisthesis, lumbar region]94-50-3945YkngpagpYljbm acquired deformities (8 sources)Spondylolisthesis, lumbar region; Translations: [Acquired spondylolisthesis]44-02-7910CuvsbtgpMjekn aftercare (3 sources)Other custodial (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; Translations: [OTH IT TELECOM TECHNICIAN CURRENT DRUG THERAPY]Onset: 89-42-6889JsdtdxhvXflnl aftercare (6 sources)Long-term current use of drug therapy; Translations: [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]EpisodicOther aftercare (7 sources)Drug therapy finding; Translations: [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 service 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 (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) use of opiate analgesic]39-16-9961OsejclobXvxhf aftercare (3 sources)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 service 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 (current) use of opiate analgesic; Translations: [Long-term (current) use of other medications]35-52-3085LuimcvpyNjwii connective tissue disease (4 sources)History of cervical spine fusion; Translations: [Arthrodesis status] 64-71-2353HitetmszBiopz connective tissue disease (3 sources)Arthrodesis status; Translations: [Arthrodesis status]11-13-2024 EpisodicOther gastrointestinal disorders (3 sources)Dysphagia, pharyngoesophageal phase; Translations: [Dysphagia, pharyngoesophageal phase]EpisodicOther gastrointestinal disorders (5 sources)Pharyngeal dysphagia; Translations: [Dysphagia, pharyngoesophageal phase]EpisodicOther gastrointestinal disorders (9 sources)Dysphagia; Translations: [Dysphagia, unspecified]Onset: 05-05-2024 29-22-2451ImjfyamdImwdm gastrointestinal disorders (2 sources)Esophageal dysphagia; Translations: [Other dysphagia]05-18-2024 EpisodicOther gastrointestinal disorders (2 sources)Other dysphagia; Translations: [Other dysphagia]03-92-1043Wanulxxe Other hereditary and degenerative nervous system conditions (15 sources)Motor neuron disease; 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, unspecified]ChronicOther hereditary and degenerative nervous system conditions (1 source)Motor neuron disease, unspecifiedOnset: 08-29-2021 Resolved: 44-05-2973PwpeoseRzjhw injuries and conditions due to external causes (1 source)Other injury of unspecified body region, initial encounterEpisodic Other injuries and conditions due to external causes (3 sources)History of falling; Translations: [History of falling]EpisodicOther injuries and conditions due to external causes (5 sources)History of fall; Translations: [History of falling]EpisodicOther nervous system disorders (20 sources)Idiopathic peripheral neuropathy; Translations: [Hereditary and idiopathic neuropathy, unspecified]Onset: 679734-05-0019HmqhwvvFwmtw nervous system disorders (3 sources)Hereditary and idiopathic neuropathy, unspecified; Translations: [Unspecified hereditary and idiopathic peripheral neuropathy]Onset: 08-03-2021 Resolved: 56-64-0329GwpmjczAquci nervous system disorders (15 sources)Neuropathy; Translations: [Idiopathic progressive neuropathy]Chronic Other nervous system disorders (2 sources)Idiopathic progressive neuropathyOnset: 08-29-2021 Resolved: 30-23-3295LnnvgomAkqdx nervous system disorders (4 sources)Polyneuropathy, unspecified; Translations: [POLYNEUROPATHY UNSPECIFIED]Onset: 68-57-0365OlqiswlSdtrv nervous system disorders (20 sources)Carpal tunnel syndrome; Translations: [Carpal tunnel syndrome, unspecified upper limb]Onset: 479457-71-6563MrljwxwQsoru nervous system disorders (20 sources)Carpal tunnel syndrome, unspecified upper limb; Translations: [Carpal tunnel syndrome]ChronicOther nervous system disorders (8 sources)Carpal tunnel syndrome, left upper limb; Translations: [Carpal tunnel syndrome]ChronicOther nervous system disorders (9 sources)Carpal tunnel syndrome of left wrist; Translations: [Carpal tunnel syndrome, left upper limb]14-98-0362NaejhauDrbov nervous system disorders (15 sources)Carpal tunnel syndrome, bilateral upper limbs; Translations: [Carpal tunnel syndrome]18-35-2092DyihzhcMscus nervous system disorders (5 sources)Carpal tunnel syndrome of right wrist; Translations: [Carpal tunnel syndrome, right upper limb]17-43-8829YgrqgjdOnxpk nervous system disorders (5 sources)Carpal tunnel syndrome, right upper limb; Translations: [Carpal tunnel syndrome]Onset: 777410-40-0191EasnqhdVqmhb non-traumatic joint disorders (3 sources)Pain in right shoulder; Translations: [Pain in right shoulder] EpisodicOther non-traumatic joint disorders (5 sources)Shoulder joint pain; Translations: [Pain in right shoulder]Episodic Other non-traumatic joint disorders (20 sources)Pain in left shoulder; Translations: [Left shoulder pain]Onset: 778367-49-7404MnzyzwbfQxcze nutritional; endocrine; and metabolic disorders (3 sources)Overweight; Translations: [Overweight]EpisodicOther nutritional; endocrine; and metabolic disorders (5 sources)Overweight; Translations: [Overweight]EpisodicOther skin disorders (2 sources)Other specified follicular disorders; Translations: [Other specified follicular disorders]EpisodicOther skin disorders (6 sources)Hair follicle disorder; Translations: [Other specified follicular disorders]EpisodicParalysis (16 sources)Brown-Sequard syndrome; 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Peripheral and visceral atherosclerosis (20 sources)Atherosclerosis of [place] arteries of extremities with intermittent claudication, left leg; Translations: [Intermittent claudication of left lower limb co-occurrent and due to atherosclerosis]Onset: 193440-24-1673Apqwypj Comment on above:LEAH: right 0.98, left 0.81 w/ left tibio-peroneal disease - 10/2024Residual codes; unclassified (16 sources)Edema of lower extremity; Translations: [Localized edema]Onset: 327788-75-9095UtxjlvbaDqfiiypj codes; unclassified (5 sources)Localized edema; Translations: [Edema]15-09-8001DaiptewoZifdktdnm and history of mental health and substance abuse codes (2 sources)Encounter for screening for depression; Translations: [Encounter for screening for depression]EpisodicSpondylosis; intervertebral disc disorders; other back problems (20 sources)Cervical spondylosis with myelopathy; Translations: [Other spondylosis with myelopathy, cervical region]Onset: 04-05-2017 Resolved: 31-80-6245GydfvowOvocjyw on above:Problem List clean-up per request of Phys. EHR CmteSpondylosis; intervertebral disc disorders; other back problems (20 sources)Spinal stenosis, lumbar region with neurogenic claudication; Translations: [Sciatica, left side]Onset: 04-05-2017 Resolved: 88-34-4866TbfjpikgWcwlsffsb-related disorders (8 sources)Nicotine dependence, cigarettes, in remission; Translations: [Tobacco user]ChronicSuperficial injury; contusion (1 source)Insect bite (nonvenomous), right lower leg, initial encounterEpisodic Unclassified (3 sources)Low back pain, unspecified; Translations: [Low back pain, unspecified]Onset: 34-48-7123Dpxroweaxrsb (1 source)Painful UrinationOnset: 52-98-3136Xpswekspbtfl (1 source)URINATION ISSUEOnset: 12-62-8272Ijkzenppcxvc (1 source)Bladder ProblemOnset: 94-64-8449Onyvnsr tract infections (1 source)Acute cystitis with hematuria; Translations: [Acute cystitis with hematuria]Onset: 96-11-1649Ryrbamcc Past or Other Problems Problem ClassificationProblemDateDocumented DateEpisodic/ChronicAbdominal pain (3 sources)Abdominal pain; Translations: [Unspecified abdominal pain]Onset: 419274-35-4484AzdzjeuwVghgqbhpdp disorders (1 source)Esophageal disordersMalaise and fatigue (8 sources)Chronic fatigue, unspecified; Translations: [Chronic fatigue syndrome] Resolved: 85-74-6135RfycnyaNnpmlukas of unspecified nature or uncertain behavior (8 sources)Neoplasm of uncertain behavior of skin; Translations: [Neoplasm of uncertain behavior of skin] Resolved: 71-77-0536EijuvvseSbaox gastrointestinal disorders (2 sources)Drug induced constipation; Translations: [Drug induced constipation] Resolved: 76-82-0844TpxvixjcMvskx gastrointestinal disorders (6 sources)Drug-induced constipation; Translations: [Drug induced constipation] Resolved: 26-24-9833MskirazoCgjsl gastrointestinal disorders (1 source)Dysphagia, unspecified; Translations: [Dysphagia, unspecified]Onset: 56-28-9833YdbnslsxMizlr nervous system disorders (4 sources)Paresthesia of skin; Translations: [PARESTHESIA OF SKIN]Onset: 14-28-2493FsckcreiKhkfx nervous system disorders (1 source)Other abnormalities of gait and mobility; Translations: [OTHER ABNORMALITIES GAIT AND MOBILITY]Onset: 10-24-9627SvzzvrabAjoma screening for suspected conditions (not mental disorders or infectious disease) (20 sources)Elevated prostate specific antigen [PSA]; Translations: [Raised prostate specific antigen]Onset: 05-01-2016 Resolved: 67-55-9970QguparzxCheixiw and strains (8 sources)Sprain of left rotator cuff capsule, subsequent encounter; Translations: [Sprain of left rotator cuff capsule] Resolved: 25-91-1361Zdzckmre Results Test NameValueInterpretationReference RangeFacilityECG 12 lead ECGon 11-21-2024 ECG 12 lead ECG[facility] [place] [address] [place] [address] Electrocardiograph Report Signed Patient: Rishi Babcock MR#: [id number] : 1940 Acct:[id number] Age/Sex: 84 / M ADM Date: 11/21/24 Loc: Room: Type: [facility] Attending Dr: John Adam MD Ordering Provider: John Adam MD Date of Service: 11/21/24 ECG/ECG 12 lead ECG: pre-op Copies to: Test Reason : Blood Pressure : */* mmHG Vent. Rate : 76 BPM Atrial Rate : 76 BPM P-R Int : 232 ms QRS Dur : 154 ms QT Int : 442 ms P-R-T Axes : 77 87 55 degrees QTcB Int : 497 ms Sinus rhythm with 1st degree AV block Right bundle branch block Abnormal ECG When compared with ECG of 29-Nov-2023 08:14, No significant change was found Confirmed by SABI AKINS [facility] ([id number]) on 11/21/2024 6:31:03 PM Referred By: Electronically Signed By: ANGELITA CELESTIN MD [facility] Transcribed By: MUS Signed By Angelita Celestin MD, [facility] 11/21/24 1831NoSandhills Regional Medical Center Physician GroupINR in Platelet poor plasma by Coagulation assayOrdered By: John Adam on 68-09-3609AJY Coag (PPP) [Relative time]INR in Platelet poor plasma by Coagulation assayAdena Regional Medical CenterComment on above:INR Therapeutic Range A) Pre- and Peroperative OAT started two weeks before surgery. NOT HIP SURGERY: 1.5 - 2.5 HIP SURGERY: 2 - 3B) Primary and secondary prevention of venous THROMBOSIS: 2 - 3C) Active venous thrombosis, pulmonary embolismand prevention of recurrent venous thrombosis: 2 - 3D) Prevention of arterial thromboembolismincluding patients with mechanical heart valves: 3 - 4.5Partial Thromboplastin Timeon 61-59-6680qWZO Coag (Bld) [Time]33.4 rLntdfj67.1-36.5ThCascade Medical Center Physician GroupComment on above:Result Comment: A hematocrit value greater than 55% may lead to inaccurate results in coagulation testing. Patients having hematocrit values >55% require a special collection tube for coagulation studies. Please contact the laboratory at [phone] for redraw instructions. PERFORMED BY: [place] [id number] PATHOLOGIST SOFTWARE PRODUCT MANAGER NORRIS CABALLERO M.D.Performed By: #### PTT, PT #### [address] [address] USAProthrombin Time INRon 06-49-8919CBW Coag (PPP) [Relative time]1.0 {INR}NormalThe Firsthealth Physician GroupComment on above:Result Comment: INR Therapeutic Range A) Pre- and [...] patients with mechanical heart valves: 3 - 4.5Performed By: #### PTT, PT #### [place] [id number] USAPT Coag (PPP) [Time]11.0 sNormal9.0-12.9[facility] Physician [facility] Medical CenterComment on above:Result Comment: A hematocrit value greater than 55% may lead to inaccurate results in coagulation testing. Patients having hematocrit values >55% require a special collection tube for coagulation studies. Please contact the laboratory at [phone] for redraw instructions.Performed By: #### PTT, PT #### [place] [id number] USAProthrombin time (PT)Ordered By: John Adam on 11-21-2024 PT Coag (PPP) [Time]Prothrombin time (PT)9.0-12.9[facility] Medical CenterComment on above:A hematocrit value greater than 55% may lead to inaccurate results in coagulation testing. Patientshaving hematocrit values >55% require a special collection tube for coagulation studies. Please contact the laboratory at [phone] for redraw instructions.aPTT in Platelet poor plasma by Coagulation assayOrdered By: John Adam on 61-03-8854uNPG Coag (PPP) [Time] Activated partial thromboplastin time (aPTT) in platelet poor plasma by coagulation a25.1-36.5FGrant HospitalComment on above:A hematocrit value greater than 55% may lead to inaccurate results in coagulation testing. Patientshaving hematocrit values >55% require a special collection tube for coagulation studies. Please contact the laboratory at [phone] for redraw instructions.Albumin [Mass/volume] in Serum or Plasmaon 98-01-1634Aknopbf [Mass/Vol]Albumin [Mass/volume] in Serum or Plasma2.9-4.4FGrant HospitalBasophils Auto (Bld) [#/Vol]on 01-92-0789Yagiepvbc (Bld) [#/Vol] Automated basophil count0.0-0.1FGrant HospitalBasophils/100 WBC Auto (Bld)on 22-01-4232Wdjaipqkl/100 WBC (Bld)Automated basophil %0.2-2.0 [facility] CenterEosinophils/100 WBC Auto (Bld)on 11-07-2024 Eosinophils/100 WBC (Bld)Automated eosinophil %0.9-7.0[facility] Medical CenterErythrocyte distribution width Auto (RBC) [Ratio]on 95-30-6369Rvevapwuted distribution width (RBC) [Ratio]Erythrocyte distribution width [Ratio] by Automated count11.0-15.0[facility] Medical CenterEstimated glomerular filtration rate (GFR) non- Americanon 37-53-7285CWP/1.73 sq M.predicted among non-blacks MDRD (S/P/Bld) [Vol rate/Area]Estimated glomerular filtration rate (GFR) non->=60 mL/min/1.73m 2FGrant HospitalGlobulin Calc (S) [Mass/Vol]on 17-87-3266Rmweftco (S) [Mass/Vol]Serum globulin measurement by calculation (mass/volume)[facility] Medical CenterHematocrit Auto (Bld) [Volume fraction]on 31-89-7112Muewiqmngv (Bld) [Volume fraction]Hematocrit [Volume Fraction] of Blood by Automated countLow 42.0-54.0[facility] Medical CenterHemoglobin [Mass/volume] in Bloodon 10-19-6640Plapkwqbjc (Bld) [Mass/Vol]Hemoglobin [Mass/volume] in BloodLow 14.0-18.0[facility] Medical CenterIgA [Mass/volume] in Serum or Plasmaon 00-55-4577QnK [Mass/Vol]IgA [Mass/volume] in Serum or Fcjdwj24-936TskfdxmngAdena Regional Medical CenterIgG [Mass/volume] in Serum or Plasmaon 28-32-3637NxH [Mass/Vol]IgG [Mass/volume] in Serum or Gyitby723-9956MglavsmnvAdena Regional Medical CenterIgM [Mass/volume] in Serum or Plasmaon 15-43-4356VeI [Mass/Vol]IgM [Mass/volume] in Serum or Yftkqh57-972CzgrremvlAdena Regional Medical Center Immunoglobulin light chains.kappa.free [Mass/volume] in Serumon 11-07-2024 Immunoglobulin light chains.kappa.free (S) [Mass/Vol]Immunoglobulin light chains.kappa.free [Mass/volume] in SerumAbnormal3.3-19.4FGrant HospitalImmunoglobulin light chains.kappa.free/Immunoglobulin light chains.lambda.free [Su 36-81-0884Dzgwxyjrvhgmei light chains.kappa.free/Immunoglobulin light chains.lambda.free (S) [Mass ratio] Immunoglobulin light chains.kappa.free/Immunoglobulin light chains.lambda.free [Mass0.26-1.65[facility] Medical CenterComment on above:Performed at: [facility] [id number] Director: Spencer Naik PhD, Phone: [phone] light chains.lambda.free [Mass/volume] in Serum or Plasmaon 85-22-8858Nowuiefotxzygp light chains.lambda.free [Mass/Vol]Immunoglobulin light chains.lambda.free [Mass/volume] in Serum or Plasma5.7-26.3FGrant Hospital Laboratory - Chemistry and Chemistry - challengeon 69-58-3388Kpukgso [Mass/Vol] 3.7 g/dL3.4-5.0[facility] CenterALP [Catalytic activity/Vol]185 U/MZivk44-952IzubnwxesAdena Regional Medical CenterALT [Catalytic activity/Vol]23 U/L 16-63[facility] CenterAST [Catalytic activity/Vol]19 U/L15-37 [facility] CenterBilirubin [Mass/Vol]0.6 mg/dL0.2-1.0[facility] CenterCalcium [Mass/Vol]9.4 mg/dL8.5-10.1FGrant HospitalChloride [Moles/Vol]100 mmol/F50-734YdoubcedfAdena Regional Medical CenterCO2 [Moles/Vol]35.2 mmol/LHigh21.0-32.0[facility] Creatinine [Mass/Vol]0.94 mg/dL0.70-1.30[facility] Ferritin [Mass/Vol]100.0 ng/mL26.0-388.0[facility] GFR/1.73 sq M.predicted MDRD (S/P/Bld) [Vol rate/Area]mL/min/{1.73_m2}>=60 mL/min/1.73m 2FGrant HospitalGlucose [Mass/Vol]106 mg/lG26-522 [facility] CenterPotassium [Moles/Vol]3.2 mmol/LLow3.5-5.1 [facility] CenterProtein [Mass/Vol]6.9 g/dL6.4-8.2FMcCullough-Hyde Memorial Hospitalodium [Moles/Vol]142 mmol/R667-672XnovaotujAdena Regional Medical CenterTSH Qn1.549 m[IU]/L0.358-3.740[facility] Urea nitrogen [Mass/Vol]23.0 mg/dLHigh7.0-18.0[facility] Urea nitrogen/Creatinine [Mass ratio]24.5 mg/mgAdena Regional Medical Center Laboratory - Hematology and Cell countson 28-52-8429Ouyjyqps granulocytes/100 WBC (Bld)0.3 %0.0-0.5FGrant HospitalLeukocytes [#/volume] corrected for nucleated erythrocytes in Blood by Automated counon 91-56-6915DWZ corrected for nucl RBC Auto (Bld) [#/Vol]Leukocytes [#/volume] corrected for nucleated erythrocytes in Blood by Automated coun4.0-11.0[facility] Medical CenterLymphocytes Auto (Bld) [#/Vol]on 87-56-6113Mvdhpyxbgst (Bld) [#/Vol]Lymphocytes [#/volume] in Blood by Automated count1.2-3.8[facility] Medical CenterLymphocytes/100 WBC Auto (Bld)on 11-07-2024 Lymphocytes/100 WBC (Bld)Lymphocytes/100 leukocytes in Blood by Automated count Low20.5-60.0[facility] HospitalH Auto (RBC) [Entitic mass]on 36-49-9631JOC (RBC) [Entitic mass]MCH [Entitic mass] by Automated count25.9-34.0 [facility] CenterMCHC Auto (RBC) [Mass/Vol]on 97-84-0974QDNR (RBC) [Mass/Vol]MCHC [Mass/volume] by Automated count29.9-35.2FGrant HospitalMCV Auto (RBC) [Entitic vol]on 88-95-8150QOE (RBC) [Entitic vol] MCV [Entitic volume] by Automated pijbdPuoh61.0-94.0[facility] CenterMonocytes Auto (Bld) [#/Vol]on 58-91-4132Zbfdvkkrf (Bld) [#/Vol]Automated blood monocyte countHigh0.3-0.8[facility] CenterMonocytes/100 WBC Auto (Bld)on 03-56-3752Mjnwclpmd/100 WBC (Bld)Automated monocyte %1.7-12.0 [facility] CenterNeutrophils Auto (Bld) [#/Vol]on 11-07-2024 Neutrophils (Bld) [#/Vol]Neutrophils [#/volume] in Blood by Automated count 1.4-6.5FGrant HospitalNeutrophils/100 WBC Auto (Bld)on 74-14-1183Akpolptotfh/100 WBC (Bld)Automated neutrophil %43.0-75.0[facility] CenterNo Panel Informationon 07-47-7251Zuuprdtkfyn # (Auto)0.2 10 3/uL0.0-0.7FGrant HospitalImmature Granulocyte # (Auto)0.03 10 3/uL0.00-0.03[facility] CenterProtein Electrophoresis M-SpikeNot Observed g/dLNot ObservedAdena Regional Medical CenterProtein Electrophoresis NoteComment.[facility] Medical CenterComment on above: Protein electrophoresis scan will follow via computer,mail, or machinist automotive delivery. Vitamin B12 Level>2000 pg/nINxxqmsue129-1957EsdruzqkoAdena Regional Medical Center Comment on above:Performed at: [facility] [id number] Director: Spencer Naik PhD, Phone: [phone] mean volume Auto (Bld) [Entitic vol]on 51-12-1154Iqoometu mean volume (Bld) [Entitic vol]Platelet mean volume [Entitic volume] in Blood by Automated count9.5-13.5 [facility] CenterPlatelets Auto (Bld) [#/Vol]on 11-07-2024 Platelets (Bld) [#/Vol]Platelets [#/volume] in Blood by Automated aqzys552-667 [facility] CenterProtein [Mass/volume] in Serum or Plasmaon 89-99-0191Hfbwkaw [Mass/Vol]Protein [Mass/volume] in Serum or Plasma6.0-8.5 [facility] CenterRBC Auto (Bld) [#/Vol]on 76-84-7599QLR (Bld) [#/Vol]Erythrocytes [#/volume] in Blood by Automated countLow4.70-6.10[facility] Hospitalerum globulin measurement (mass/volume)on 11-07-2024 Globulin (S) [Mass/Vol]Serum globulin measurement (mass/volume)2.2-3.9[facility] Hospitalerum or plasma albumin/globulin mass ratioon 11-07-2024 Albumin/Globulin [Mass ratio]Serum or plasma albumin/globulin mass ratio0.7-1.7 [facility] Hospitalerum or plasma alpha 1 globulin measurement by electrophoresis (mass/volume)on 19-56-9282Lyvbf 1 globulin Elph [Mass/Vol]Serum or plasma alpha 1 globulin measurement by electrophoresis (mass/volume)0.0-0.4 [facility] Hospitalerum or plasma alpha 2 globulin measurement by electrophoresis (mass/volume)on 29-05-9816Ezalj 2 globulin Elph [Mass/Vol]Serum or plasma alpha 2 globulin measurement by electrophoresis (mass/volume)0.4-1.0 [facility] Hospitalerum or plasma anion gap determinationon 93-78-8988Pzicb gap [Moles/Vol]Serum or plasma anion gap determinationFirCrystal Clinic Orthopedic Centererum or plasma beta globulin measurement by electrophoresis (mass/volume)on 42-69-2137Ztsv globulin Elph [Mass/Vol]Serum or plasma beta globulin measurement by electrophoresis (mass/volume)0.7-1.3 [facility] Hospitalerum or plasma gamma globulin measurement by electrophoresis (mass/volume)on 49-28-1332Pmsdg globulin Elph [Mass/Vol]Serum or plasma gamma globulin measurement by electrophoresis (mass/volume)0.4-1.8 [facility] Hospitalerum or plasma immunoelectrophoresis interpretationon 36-87-1694Clkoysxpucmcho IEP [Interp]Serum or plasma immunoelectrophoresis interpretation.[facility] Medical CenterComment on above:No monoclonality detected.URINALYSISon 09-21-8137Jnhsxyayd Ql (U)Negative NormalNEGWilson HealthComment on above:Performed By: #### UA #### [facility] ([id number]) [address] [place] [address] 69620ADYBO/HGBLargeAbnormalNEGWilson HealthComment on above:Performed By: #### UA #### [facility] ([id number]) [address] [place] [address] 12938Zqqkv (U)YELLOWNormalYELLOWWilson HealthComment on above:Performed By: #### UA #### [facility] ([id number]) [address] [place] [address] 57065Sqhalyd Ql (U)NegativeNormalNEGWilson Health Comment on above:Performed By: #### UA #### [facility] ([id number]) [address] [place] [address] 07858Qyuxrxj Ql (U)NegativeNormalNEGWilson Health Comment on above:Performed By: #### UA #### [facility] ([id number]) [address] [place] [address] 31707Zlqmchjbe esterase Test strip Ql (U)MODERATEAbnormalNEG Wilson HealthComment on above:Performed By: #### UA #### [facility] ([id number]) [address] [place] [address] 51853Sxytkdb Ql (U)NegativeNormalNEGWilson Health Comment on above:Performed By: #### UA #### [facility] ([id number]) [address] [place] [address] 60618mF (U)6.0 [pH]Normal5.0-8.5PKettering Health TroyComment on above:Performed By: #### UA #### [facility] ([id number]) [address] [place] [address] 88122Zaiaeoa Ql (U)100 mg/dLAbnormalNEGWilson Health Comment on above:Performed By: #### UA #### [facility] ([id number]) [address] [place] [address] 50224R.B.CELLS>555Irej5-5QvnUlkrncKettering Health TroyComment on above: Performed By: #### UA #### [facility] ([id number]) [address] [place] [address] 53711Guoblkoc gravity (U) [Rel density]1.454Kdjltc4.003-1.035 Wilson HealthComment on above:Performed By: #### UA #### [facility] ([id number]) [address] [place] [address] 70249DNEEYFDCGYLIQTfkhnxnwMASNLVqsDwnhfi Fremont HospitalComment on above:Performed By: #### UA #### [facility] ([id number]) [address] [place] [address] 57906Bnbhmdfvylod Qn (U)0.2 {Michel'U}/dLNormal<1.1PKettering Health TroyComment on above:Performed By: #### UA #### [facility] ([id number]) [address] [place] [address] 21759Y.B.CELLS6 /hpfHigh0-5PKettering Health TroyComment on above:Performed By: #### UA #### [facility] ([id number]) [address] [place] [address] 85419DMWXU CULTUREon 31-66-0443Pdqtkyfo identified Cx Nom (U) SPECIMEN NOTES URINE RECEIVED WITHOUT PRESERVATIVE CULTURE RESULTS >100,000 ORGANISMS/mL KLEBSIELLA (formerly ENTEROBACTER) AEROGENES URINE RECEIVED WITHOUT PRESERVATIVE-DELAYS IN TRANSPORT MAY AFFECT RESULTS.INTERPRET WITH CAUTION AND CLINICAL CORRELATION IS RECOMMENDED. [ S = SUSCEPTIBLE R = RESISTANT I = INTERMEDIATE S-DO = Susceptible-dose dependent NS = Non-suscceptible NO = No Interpretation ] Organism: KLEBSIELLA (formerly ENTEROBACTER) AEROGENES Antibiotic Interpretation DEANDRA Status CEFAZOLIN (non urinary) R >=32 F CEFAZOLIN (urinary) R >=32 F CEFEPIME S <=0.12 F CEFTRIAXONE S <=0.25 F CIPROFLOXACIN S <=0.06 F GENTAMICIN S <=1 F LEVOFLOXACIN S <=0.12 F NITROFURANTOIN I 64 F PIPERACIL/TAZOBACTAM S <=4 F TRIMETH/SULFAMETHOXAZOLE S <=/ FSusceptibleProMedica Resnick Neuropsychiatric Hospital At UclaComment on above:Performed By: #### 630-4 #### [facility] ([id number]) [address], [address] [place], [place] [address]Imuwldvlo Auto (Bld) [#/Vol]on 29-28-7259Gaujmjknv (Bld) [#/Vol] Automated basophil count0.0-0.1FGrant HospitalBasophils/100 WBC Auto (Bld)on 71-16-6782Wsqfzkojp/100 WBC (Bld)Automated basophil %0.2-2.0 [facility] CenterEosinophils/100 WBC Auto (Bld)on 08-25-2024 Eosinophils/100 WBC (Bld)Automated eosinophil %0.9-7.0[facility] CenterErythrocyte distribution width Auto (RBC) [Ratio]on 10-26-9965Uyzqoghdqmz distribution width (RBC) [Ratio]Erythrocyte distribution width [Ratio] by Automated count11.0-15.0[facility] CenterEstimated glomerular filtration rate (GFR) non- Americanon 63-64-1275LDI/1.73 sq M.predicted among non-blacks MDRD (S/P/Bld) [Vol rate/Area]Estimated glomerular filtration rate (GFR) non->=60 mL/min/1.73m 2FGrant HospitalGlobulin Calc (S) [Mass/Vol]on 42-56-6876Vzwqmhca (S) [Mass/Vol]Serum globulin measurement by calculation (mass/volume)[facility] Medical CenterHematocrit Auto (Bld) [Volume fraction]on 27-82-4486Upgkpvbhnj (Bld) [Volume fraction]Hematocrit [Volume Fraction] of Blood by Automated countLow 42.0-54.0[facility] Medical CenterHemoglobin [Mass/volume] in Bloodon 78-97-6935Cawwmstplk (Bld) [Mass/Vol]Hemoglobin [Mass/volume] in BloodLow 14.0-18.0[facility] CenterLaboratory - Chemistry and Chemistry - challengeon 76-20-7032Pcbghvu [Mass/Vol]3.5 g/dL3.4-5.0[facility] CenterALP [Catalytic activity/Vol]170 U/XStuz52-315OgbeenqnqAdena Regional Medical CenterALT [Catalytic activity/Vol]21 U/T35-02RjqbsfbpxAdena Regional Medical CenterAST [Catalytic activity/Vol]22 U/P06-15NzgpjzxgfAdena Regional Medical Center Bilirubin [Mass/Vol]0.6 mg/dL0.2-1.0[facility] CenterCalcium [Mass/Vol]9.4 mg/dL8.5-10.1FGrant HospitalChloride [Moles/Vol] 98 mmol/A61-368AsoiwadezAdena Regional Medical CenterCO2 [Moles/Vol]36.5 mmol/LHigh 21.0-32.0[facility] CenterCreatinine [Mass/Vol]1.02 mg/dL 0.70-1.30[facility] CenterGFR/1.73 sq M.predicted MDRD (S/P/Bld) [Vol rate/Area]mL/min/{1.73_m2}>=60 mL/min/1.73m 2FGrant HospitalGlucose [Mass/Vol]97 mg/mQ72-957WnwufplalAdena Regional Medical CenterPotassium [Moles/Vol]3.8 mmol/L3.5-5.1FGrant HospitalProtein [Mass/Vol] 6.9 g/dL6.4-8.2FMcCullough-Hyde Memorial Hospitalodium [Moles/Vol]139 mmol/L 136-145[facility] Medical CenterUrea nitrogen [Mass/Vol]19.0 mg/dLHigh 7.0-18.0[facility] CenterUrea nitrogen/Creatinine [Mass ratio] 18.6 mg/mgAdena Regional Medical CenterLaboratory - Hematology and Cell countson 38-39-4784Ptwyeulb granulocytes/100 WBC (Bld)0.3 %0.0-0.5FGrant HospitalLeukocytes [#/volume] corrected for nucleated erythrocytes in Blood by Automated counon 29-40-7690TUD corrected for nucl RBC Auto (Bld) [#/Vol]Leukocytes [#/volume] corrected for nucleated erythrocytes in Blood by Automated coun4.0-11.0[facility] Medical CenterLymphocytes Auto (Bld) [#/Vol]on 10-50-9095Fnrljuvhuzo (Bld) [#/Vol]Lymphocytes [#/volume] in Blood by Automated count1.2-3.8[facility] Medical CenterLymphocytes/100 WBC Auto (Bld)on 27-28-5666Frfgbbwwuqi/100 WBC (Bld)Lymphocytes/100 leukocytes in Blood by Automated xfdreGjl27.5-60.0[facility] Medical CenterMCH Auto (RBC) [Entitic mass]on 69-21-9804LJF (RBC) [Entitic mass]MCH [Entitic mass] by Automated count25.9-34.0[facility] Medical CenterMCHC Auto (RBC) [Mass/Vol]on 64-21-3467ALHB (RBC) [Mass/Vol]MCHC [Mass/volume] by Automated count29.9-35.2FGrant HospitalMCV Auto (RBC) [Entitic vol]on 08-72-6150PJX (RBC) [Entitic vol]MCV [Entitic volume] by Automated countHigh 80.0-94.0[facility] Medical CenterMonocytes Auto (Bld) [#/Vol]on 71-03-3814Cafqufyqy (Bld) [#/Vol]Automated blood monocyte count0.3-0.8[facility] CenterMonocytes/100 WBC Auto (Bld)on 75-57-9043Veydyajwu/100 WBC (Bld)Automated monocyte %1.7-12.0[facility] Neutrophils Auto (Bld) [#/Vol]on 83-82-8721Mwfbidtwzyb (Bld) [#/Vol]Neutrophils [#/volume] in Blood by Automated count1.4-6.5FGrant Hospital Neutrophils/100 WBC Auto (Bld)on 71-29-5077Tnrasnronaw/100 WBC (Bld)Automated neutrophil %43.0-75.0[facility] CenterNo Panel Informationon 82-32-1580Hqhxydxrrva # (Auto)0.2 10 3/uL0.0-0.7FGrant HospitalImmature Granulocyte # (Auto)0.02 10 3/uL0.00-0.03[facility] Medical CenterPlatelet mean volume Auto (Bld) [Entitic vol]on 92-71-5613Pcaqlqxd mean volume (Bld) [Entitic vol]Platelet mean volume [Entitic volume] in Blood by Automated count9.5-13.5FGrant HospitalPlatelets Auto (Bld) [#/Vol]on 36-13-4131Kkzrefkxw (Bld) [#/Vol]Platelets [#/volume] in Blood by Automated drolb815-343WzdrernkjAdena Regional Medical CenterRBC Auto (Bld) [#/Vol]on 45-56-7526MNV (Bld) [#/Vol]Erythrocytes [#/volume] in Blood by Automated count Low4.70-6.10Newark Hospitalerum or plasma albumin/globulin mass ratioon 60-57-4437Ptrtsfm/Globulin [Mass ratio]Serum or plasma albumin/globulin mass ratioNewark Hospitalerum or plasma anion gap determinationon 97-82-5350Elayj gap [Moles/Vol]Serum or plasma anion gap determinationAdena Regional Medical CenterProstate specific Ag [Mass/Vol]on 02-00-8916ZXHLGIJPN SPEC ANT9.30 ng/mLHigh0.00-4.00ProMediGreater El Monte Community HospitalComment on above:Result Comment: The method used for this test is [employer] DXI chemiluminescent immunoassay. 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 The specimen is entirely submitted in a single cassette. (1, ns, [id number]) Microscopic Description Microscopic examination is performed. 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) Procedures: CORKY/Melissa, Gross/Micro L4, H PYLORI Patient: Rishi Babcock [id number] (Continued) Signed (signature on file) Ronal Nesbitt MD 06/13/24 1359Normal [facility] Firsthealth Physician GroupAppearance of UrineOrdered By: PROVIDER TEMP on 20-45-3887Rbosjhlkhe (U)Urine appearanceAbnormalClearAdena Regional Medical CenterAutomated basophil %Ordered By: PROVIDER TEMP on 73-30-8617Ddrgkczzo/100 WBC (Bld)0.2 %Normal.[facility] Medical CenterComment on above:Performed By: #### BMP, CBC #### [place] [address] USAAutomated basophil countOrdered By: PROVIDER TEMP on 47-09-1531Bvvwcabkm (Bld) [#/Vol]0.0 10*3/uLNormal0.0-0.2FGrant HospitalComment on above:Result Comment: PERFORMED BY: [place] [address] PATHOLOGIST SOFTWARE PRODUCT MANAGER JAMISON ANDINO M.D.Performed By: #### BMP, CBC #### [place] [address] USAAutomated blood monocyte countOrdered By: PROVIDER TEMP on 91-18-3143Nmyasofkr (Bld) [#/Vol]0.9 10*3/uLHigh0.0-0.8[facility] Medical CenterComment on above:Performed By: #### BMP, CBC #### [facility] [address] [place] [address] USAAutomated eosinophil %Ordered By: PROVIDER TEMP on 35-55-4763Nbiwexgpgtf/100 WBC (Bld)0.1 %Normal.[facility] Comment on above:Performed By: #### BMP, CBC #### [place] [address] USAAutomated eosinophil countOrdered By: PROVIDER TEMP on 08-20-8152Kudjbhhjunj (Bld) [#/Vol]0.0 10*3/uLNormal0.0-0.45[facility] Medical CenterComment on above:Performed By: #### BMP, CBC #### [facility] [address] [place] [address] USAAutomated monocyte %Ordered By: PROVIDER TEMP on 25-58-9163Zborolxmd/100 WBC (Bld)7.0 %Normal.[facility] Comment on above:Performed By: #### BMP, CBC #### [facility] [address] [place] [address] USAAutomated neutrophil %Ordered By: PROVIDER TEMP on 50-92-8598Vlyvhoaxnuk/100 WBC (Bld)86.5 %Normal.[facility] Medical CenterComment on above:Performed By: #### BMP, CBC #### [place] [address] USABacteria [Presence] in Urine by AutomatedOrdered By: PROVIDER TEMP on 63-88-6012Ozlrxyzl Auto Ql (U)None seen [HPF]None [facility] CampusBacteria Auto Ql (U)Bacteria [Presence] in Urine by AutomatedNone [facility] CampusBasic Metabolic Panelon 13-41-1308Wauvnfkqox Clr Calc Eekcjkef11.92NormalThCascade Medical Center [facility] Comment on above:Result Comment: PERFORMED BY: [place] [address] PATHOLOGIST SOFTWARE PRODUCT MANAGER JAMISON ANDINO M.D.Performed By: #### BMP, CBC #### [place] [id number] USAGFR/1.73 sq M.predicted MDRD (S/P/Bld) [Vol rate/Area] mL/min/{1.73_m2}NormalThe Firsthealth Physician GroupComment on above:Performed By: #### BMP, CBC #### [facility] [address] [place] [address] USABasophils Auto (Bld) [#/Vol]Ordered By: PROVIDER TEMP on 04-34-1624Lqjljotrp (Bld) [#/Vol]Automated basophil count0.0-0.2FGrant HospitalBasophils/100 WBC Auto (Bld)Ordered By: PROVIDER TEMP on 19-01-9108Vnvjlshyf/100 WBC (Bld)Automated basophil %.[facility] Medical CenterBilirubin Test strip Ql (U)Ordered By: PROVIDER TEMP on 04-14-2024 Bilirubin Ql (U)NegativeNegativeAdena Regional Medical CenterBilirubin Ql (U)Bilirubin.total [Presence] in Urine by Test stripNegativeAdena Regional Medical CenterCT abdomen pelvis wo conon 23-84-8698KP abdomen pelvis wo con [facility] [place] [address] [place] [address] CT Scan Report Signed Patient: Rishi Babcock MR#: [id number] : 1940 Acct:[id number] Age/Sex: 83 / M ADM Date: 04/14/24 Loc: ER Room: Type: [facility] ER Attending Dr: Copies to: Nhan [...] with prostatomegaly. Left-sided fat filled inguinal hernia.] Peritoneum/Retroperitoneum:No free air, free fluid or lymphadenopathy.[ Abd [...] thickening. Impression dictated by: Sanchez Zamora Jr., Ras04/14/2024 5:25 PM Dictation Location: [facility] Transcribed By: [facility] 04/14/241724 Dictated By: Sanchez Zamora Jr, DO 04/14/241720 Signed By: 04/14/241724[facility] GroupCalcium [Mass/volume] in Serum or PlasmaOrdered By: Nhan Ramirez on 42-02-1349Zesdwkm [Mass/Vol]9.9 mg/dLNormal 8.6-10.3FGrant HospitalComment on above:Performed By: #### BMP, CBC #### [facility] [address] [place] [address] USACalcium [Mass/Vol]Calcium [Mass/volume] in Serum or Plasma 8.6-10.3FGrant HospitalCarbon dioxide, total [Moles/volume] in Serum or PlasmaOrdered By: Nhan Ramirez on 02-86-4121FD7 [Moles/Vol]35.1 mmol/L High21.0-31.0[facility] CenterComment on above:Performed By: #### BMP, CBC #### [facility] [address] [place] [address] USACO2 [Moles/Vol]Carbon dioxide, total [Moles/volume] in Serum or AvkgluUchh12.0-31.0[facility] Medical CenterChloride [Moles/volume] in Serum or PlasmaOrdered By: Nhan Ramirez on 12-22-6156Yqrweupd [Moles/Vol]93 mmol/WIhq68-139XzgqzkzbeAdena Regional Medical CenterComment on above: Performed By: #### BMP, CBC #### [facility] [address] [place] [id number] USAChloride [Moles/Vol]Chloride [Moles/volume] in Serum or HsvpafClq93-657BhfwmxzceAdena Regional Medical CenterColor Auto (U)Ordered By: PROVIDER TEMP on 39-09-4164Qmllg (U)Color of Urine by AutoAbnormalYMemorial Health SystemColor of Urine by AutoOrdered By: PROVIDER TEMP on 87-59-4358Gcnqx (U)Light-orangeCritically abnormalYellowAdena Regional Medical CenterComment on above:Order Comment: Name Collection Type:: Wiley CatheterPerformed By: #### ADDONUAPLUS, CUU #### [place] [address] USAComplete Blood Count Auto Diffon 51-43-2468Xalh Corpuscular HGB Conc33.9 g/mDEvzkhn83.5-35.6The Firsthealth Physician GroupComment on above:Performed By: #### BMP, CBC #### [place] [address] USAMonocytes/100 WBC (Bld)21.04 %High0.00-20.00The Firsthealth Physician GroupComment on above:Result Comment: For adults in ED, MDW > 20.0 may be associated with a higher risk of sepsis during the first 12 hrs of hospital admissionPerformed By: #### BMP, CBC #### [place] [address] USANRBC%0.0 /100{WBC}Normal0-0.5[facility] Comment on above:Performed By: #### BMP, CBC [address] [place] [address] USACreatinine [Mass/volume] in Serum or PlasmaOrdered By: Nhan Ramirez on 16-30-3728Aqpyhiigbs [Mass/Vol]0.90 mg/dLNormal0.70-1.30[facility] Medical CenterComment on above:Performed By: #### BMP, CBC [address] [place] [address] USACreatinine [Mass/Vol]Creatinine [Mass/volume] in Serum or Plasma0.70-1.30[facility] Medical CenterDipstick and Microscopicon 82-53-3890Fdasphls,UrineNone SeenNormalNone SeenThe Firsthealth Physician Group Comment on above:Order Comment: Name Collection Type:: Wiley CatheterPerformed By: #### ADDONUAPLUS, CUU #### [place] [address] USABilirubin,UrineNegativeNormalNegativeThe Firsthealth Physician GroupComment on above:Order Comment: Name Collection Type:: Wiley CatheterPerformed By: #### ADDONUAPLUS, CUU #### [place] [address] USAGlucose Ql (U)NormalNormalNormalThe Firsthealth Physician GroupComment on above:Order Comment: Name Collection Type:: Wiley Catheter Performed By: #### ADDONUAPLUS, CUU #### [place] [address] USAHyaline Casts,UrineNoneNormal0-8The Firsthealth Physician GroupComment on above:Order Comment: Name Collection Type:: Wiley Catheter Performed By: #### ADDONUAPLUS, CUU #### [place] [address] USAMucus,Urine2+Critically abnormalThe Firsthealth Physician GroupComment on above:Order Comment: Name Collection Type:: Wiley CatheterResult Comment: PERFORMED BY: [place] [address] PATHOLOGIST SOFTWARE PRODUCT MANAGER JAMISON ANDINO M.D.Performed By: #### ADDONUAPLUS, CUU #### [place] [address] USANitrite,UrineNegativeNormalNegativeBeraja Medical Institute Physician GroupComment on above:Order Comment: Name Collection Type:: Wiley Catheter Performed By: #### ADDONUAPLUS, CUU #### [place] [address] USAOccult Blood,UrineNormalNegativeThe Firsthealth Physician GroupComment on above:Order Comment: Name Collection Type:: Wiley CatheterResult Comment: Unable to obtain accurate result due to color interference.Performed By: #### ADDONUAPLUS, CUU #### [place] [address] USARBC,UrineInnumerableHigh0-4[facility] Comment on above:Order Comment: Name Collection Type:: Wiley CatheterPerformed By: #### ADDONUAPLUS, CUU #### [place] [address] USASpecificy Clayton,Urine1.131Tndlty9.001-1.030The Firsthealth Physician GroupComment on above:Order Comment: Name Collection Type:: Wiley CatheterPerformed By: #### ADDONUAPLUS, CUU #### [place] [address] USASquamous Epithelial Cell,Fmsne8-4Lxemvi9-2Kmc Firsthealth Physician GroupComment on above:Order Comment: Name Collection Type:: Wiley CatheterPerformed By: #### ADDONUAPLUS, CUU #### [place] [address] USAUrobilinogen,Urine2 mg/dLHighNormalThe Firsthealth Physician GroupComment on above:Order Comment: Name Collection Type:: Wiley Catheter Performed By: #### ADDONUAPLUS, CUU #### [place] [address] USAWBC,Gulcu85-02Nzev9-8Czr [facility] Physician GroupComment on above:Order Comment: Name Collection Type:: Wiley CatheterPerformed By: #### ADDONUAPLUS, CUU [address] [place] [address] USAEosinophils Auto (Bld) [#/Vol]Ordered By: PROVIDER TEMP on 09-87-5344Iwstodpfabz (Bld) [#/Vol]Automated eosinophil count0.0-0.45[facility] Medical CenterEosinophils/100 WBC Auto (Bld)Ordered By: PROVIDER TEMP on 88-72-4986Wtlvtublxon/100 WBC (Bld)Automated eosinophil %.[facility] Medical CenterEpithelial cells.squamous [#/area] in Urine sediment by Automated countOrdered By: PROVIDER TEMP on 09-62-6372Fjamtdnjmv cells.squamous Auto (Urine sed) [#/Area]1-2 [HPF]0-2FGrant HospitalEpithelial cells.squamous Auto (Urine sed) [#/Area]Epithelial cells.squamous [#/area] in Urine sediment by Automated count0-2FGrant HospitalErythrocyte distribution width Auto (RBC) [Ratio]Ordered By: PROVIDER TEMP on 04-14-2024 Erythrocyte distribution width (RBC) [Ratio]Erythrocyte distribution width [Ratio] by Automated eugnlEcmj75.0-14.8[facility] Erythrocyte distribution width [Ratio] by Automated countOrdered By: PROVIDER TEMP on 00-59-4748Vgbzeahfrbb distribution width (RBC) [Ratio]15.6 %High 12.0-14.8[facility] Medical CenterComment on above:Performed By: #### BMP, CBC #### [facility] [address] [place] [id number] USAErythrocytes [#/area] in Urine sediment by Automated count Ordered By: PROVIDER TEM on 32-47-1249YKF Auto (Urine sed) [#/Area]Innumerable [HPF]High0-4FGrant HospitalRBC Auto (Urine sed) [#/Area] Erythrocytes [#/area] in Urine sediment by Automated countHigh04FGrant HospitalErythrocytes [#/volume] in Blood by Automated count Ordered By: PROVIDER TEMP on 64-08-5932DWL (Bld) [#/Vol]4.50 10*6/uLNormal 3.90-5.60[facility] CenterComment on above:Performed By: #### BMP, CBC #### [facility] [address] [place] [id number] USAGlucose [Mass/volume] in Serum or PlasmaOrdered By: Nhan Ramirez on 29-39-2449Fwdrcmv [Mass/Vol]101 mg/pUMdqh02-203DjcoqdxuvAdena Regional Medical CenterComment on above:ADA recommended reference rangeRandom Glucose Reference Range is dependent on time and content of last meal. Glucose of more than 200 mg/dL in a nonstressed, ambulatory subject supports the diagnosisof Diabetes Mellitus.Result Comment: Random Glucose Reference Range is dependent on time and content of last meal. Glucose of more than 200 mg/dL in a nonstressed, ambulatory subject supports the diagnosis of Diabetes Mellitus. ADA recommended reference rangePerformed By: #### BMP, CBC #### [facility] [address] [place] [id number] USAGlucose [Mass/Vol]Glucose [Mass/volume] in Serum or Plasma Jyhc52-239YqyvwrsncAdena Regional Medical CenterComment on above:ADA recommended reference rangeRandom Glucose Reference Range is dependent on time and content of last meal. Glucose of more than 200 mg/dL in a nonstressed, ambulatory subject supports the diagnosisof Diabetes Mellitus.Glucose [Mass/volume] in Urine by Test stripOrdered By: PROVIDER TEMP on 73-32-3278Jkrhuou Test strip (U) [Mass/Vol]Normal mg/dLNoMiami Valley HospitalGlucose Test strip (U) [Mass/Vol]Glucose [Mass/volume] in Urine by Test stripNoMiami Valley HospitalHematocrit Auto (Bld) [Volume fraction]Ordered By: PROVIDER TEMP on 06-80-8067Rwkvomhzim (Bld) [Volume fraction]Hematocrit [Volume Fraction] of Blood by Automated count38.8-50.0[facility] Hematocrit [Volume Fraction] of Blood by Automated countOrdered By: PROVIDER TEMP on 72-51-9994Kgrpcmriyw (Bld) [Volume fraction]41.0 %Rdarcs51.8-50.0 [facility] CenterComment on above:Performed By: #### BMP, CBC #### [facility] [address] [place] [address] USAHemoglobin Test strip Ql (U)Ordered By: PROVIDER TEMP on 68-81-2701Tqmmvffbmo Ql (U)See commentNegLouis Stokes [facility] Comment on above:Unable to obtain accurate result due to color interference. Hemoglobin Ql (U)Hemoglobin [Presence] in Urine by Test stripNegativeAdena Regional Medical CenterComment on above:Unable to obtain accurate result due to color interference.Hemoglobin [Mass/volume] in BloodOrdered By: PROVIDER TEMP on 96-82-6199Fxzfulisod (Bld) [Mass/Vol]13.9 g/dNQyuzzx42.0-17.0[facility] CenterComment on above:Performed By: #### BMP, CBC #### [facility] [address] [place] [address] USAHemoglobin (Bld) [Mass/Vol]Hemoglobin [Mass/volume] in Blood13.0-17.0[facility] Medical CenterHyaline casts [#/area] in Urine sediment by Automated countOrdered By: PROVIDER TEMP on 21-05-3016Jfodxhl casts Auto (Urine sed) [#/Area]None [LPF]0-8[facility] Medical CenterHyaline casts Auto (Urine sed) [#/Area]Hyaline casts [#/area] in Urine sediment by Automated count0-8[facility] Medical CenterKetones Test strip Ql (U) Ordered By: PROVIDER TEMP on 99-46-4954Hhotqde Ql (U)Ketones [Presence] in Urine by Test stripHighNegLouis Stokes Cleveland VA Medical CenterKetones [Presence] in Urine by Test stripOrdered By: PROVIDER TEMP on 18-63-6757Iirznmj Ql (U)Trace [facility]an Private HospitalComment on above:Order Comment: Name Collection Type:: Wiley CatheterPerformed By: #### ADDSARANYAUAPLUS, CUU #### [facility] [address] [id number] USALeukocyte esterase [Presence] in Urine by Test strip Ordered By: PROVIDER TEMP on 76-97-3646Iquddtfgq esterase Test strip Ql (U)4+ [facility]an Private HospitalComment on above:Order Comment: Name Collection Type:: Wiley CatheterPerformed By: #### ADDONUAPLUS, CUU #### [facility] [address] [phone] USALeukocyte esterase Test strip Ql (U)Leukocyte esterase [Presence] in Urine by Test stripHighNegLouis Stokes Cleveland VA Medical Center Leukocytes [#/area] in Urine sediment by Automated countOrdered By: PROVIDER TEMP on 08-49-9500SZS Auto (Urine sed) [#/Area]10-19 [HPF]High0-4FGrant HospitalWBC Auto (Urine sed) [#/Area]Leukocytes [#/area] in Urine sediment by Automated countPleasant Valley Hospital04FGrant HospitalLeukocytes [#/volume] corrected for nucleated erythrocytes in Blood by Automated coun Ordered By: PROVIDER TEMP on 10-98-7011DFK corrected for nucl RBC Auto (Bld) [#/Vol]13.5 10*3/uLHigh4.1-10.5FGrant HospitalWBC corrected for nucl RBC Auto (Bld) [#/Vol]Leukocytes [#/volume] corrected for nucleated erythrocytes in Blood by Automated counHigh4.1-10.5FGrant HospitalLeukocytes [#/volume] in Blood by Automated countOrdered By: PROVIDER TEMP on 39-23-4384MFK (Bld) [#/Vol]13.5 10*3/uLHigh4.1-10.5FGrant HospitalComment on above:Performed By: #### BMP, CBC #### [facility] [address] [place] [address] USALymphocytes Auto (Bld) [#/Vol]Ordered By: PROVIDER TEMP on 69-24-1333Ojwjwecbwdt (Bld) [#/Vol]Lymphocytes [#/volume] in Blood by Automated countLow1.00-4.8[facility] Medical CenterLymphocytes [#/volume] in Blood by Automated countOrdered By: PROVIDER TEMP on 61-26-1766Drdzrfkhbyq (Bld) [#/Vol]0.8 10*3/uLLow1.00-4.8[facility] Medical CenterComment on above: Performed By: #### BMP, CBC #### [facility] [address] [id number] USALymphocytes/100 WBC Auto (Bld)Ordered By: PROVIDER TEMP on 32-76-0356Kitznataenu/100 WBC (Bld)Lymphocytes/100 leukocytes in Blood by Automated count.[facility] Medical CenterLymphocytes/100 leukocytes in Blood by Automated countOrdered By: PROVIDER TEMP on 08-42-0989Caodedlkljd/100 WBC (Bld)6.2 %Normal.[facility] Medical CenterComment on above:Performed By: #### BMP, CBC #### [facility] [address] Auto (RBC) [Entitic mass]Ordered By: PROVIDER TEMP on 48-33-8781CAW (RBC) [Entitic mass]MCH [Entitic mass] by Automated count27.5-35.2 [facility] [Entitic mass] by Automated countOrdered By: PROVIDER TEMP on 40-70-5304VXN (RBC) [Entitic mass]30.9 zvZhncrv76.5-35.2 [facility] CenterComment on above:Performed By: #### BMP, CBC #### [facility] [address] Auto (RBC) [Mass/Vol]Ordered By: PROVIDER TEMP on 53-20-0925CLGI (RBC) [Mass/Vol]33.9 g/dL32.5-35.6FSelect Medical Specialty Hospital - Cleveland-FairhillHC (RBC) [Mass/Vol]MCHC [Mass/volume] by Automated count32.5-35.6 [facility] Auto (RBC) [Entitic vol]Ordered By: PROVIDER TEMP on 73-71-9219QMG (RBC) [Entitic vol]MCV [Entitic volume] by Automated count83.5-101[facility] HospitalV [Entitic volume] by Automated countOrdered By: PROVIDER TEMP on 93-93-0460APH (RBC) [Entitic vol] 91.2 vUKoqiri99.5-101[facility] CenterComment on above:Performed By: #### BMP, CBC #### [facility] [address] [place] [address] USAMonocyte distribution width [Entitic volume] in Blood by AutomatedOrdered By: PROVIDER TEMP on 56-53-8547Zmflrxhh distribution width Auto (Bld) [Entitic vol]21.04 %High0.00-20.00[facility] Medical CenterComment on above:For adults in ED, MDW > 20.0 may be associated with a higher risk of sepsis during the first 12 hrs of hospital admissionMonocyte distribution width Auto (Bld) [Entitic vol]Monocyte distribution width [Entitic volume] in Blood by AutomatedHigh0.00-20.00[facility] Medical CenterComment on above:For adults in ED, MDW > 20.0 may be associated with a higher risk of sepsis during the first 12 hrs of hospital admissionMonocytes Auto (Bld) [#/Vol]Ordered By: PROVIDER TEMP on 89-00-1864Dokmnluqv (Bld) [#/Vol]Automated blood monocyte count High0.0-0.8[facility] CenterMonocytes/100 WBC Auto (Bld)Ordered By: PROVIDER TEMP on 10-64-9787Vpzimdjip/100 WBC (Bld)Automated monocyte %. [facility] CenterMucus [Presence] in Urine by AutomatedOrdered By: PROVIDER TEMP on 67-21-3862Dqqje Auto Ql (U)2+ [LPF]AbnormalAdena Regional Medical CenterMucus Auto Ql (U)Mucus [Presence] in Urine by Automated AbnormalAdena Regional Medical CenterNeutrophils Auto (Bld) [#/Vol]Ordered By: PROVIDER TEMP on 43-06-6887Quokhngeyxb (Bld) [#/Vol]Neutrophils [#/volume] in Blood by Automated countHigh1.8-7.7FGrant Hospital Neutrophils [#/volume] in Blood by Automated countOrdered By: PROVIDER TEMP on 74-24-0377Njlhlzqbdny (Bld) [#/Vol]11.6 10*3/uLHigh1.8-7.7FGrant HospitalComment on above:Performed By: #### BMP, CBC #### [facility] [address] [place] [address] USANeutrophils/100 WBC Auto (Bld)Ordered By: PROVIDER TEMP on 69-79-7548Rkrzksmqonr/100 WBC (Bld)Automated neutrophil %.[facility] Medical CenterNitrite Test strip Ql (U)Ordered By: PROVIDER TEMP on 04-14-2024 Nitrite Ql (U)NegativeNegativeAdena Regional Medical CenterNitrite Ql (U) Nitrite [Presence] in Urine by Test stripNegLouis Stokes Cleveland VA Medical CenterNo Panel InformationOrdered By: Nhan Ramirez on 85-57-7348Ticaakxwv GFR (CKD-EPI)> 60.0 mL/MinAdena Regional Medical CenterPharmacy Creatinine Clearance (Chem52.92[facility] Medical CenterNucleated erythrocytes [Presence] in Blood by Automated countOrdered By: PROVIDER TEMP on 04-14-2024 Nucleated RBC Auto Ql (Bld)0.0 /100{WBC}0-0.5FGrant Hospital Nucleated RBC Auto Ql (Bld)Nucleated erythrocytes [Presence] in Blood by Automated count0-0.5FGrant HospitalPlatelet mean volume Auto (Bld) [Entitic vol]Ordered By: PROVIDER TEMP on 23-52-0396Uvivztqe mean volume (Bld) [Entitic vol]Platelet mean volume [Entitic volume] in Blood by Automated count6.6-10.1FGrant HospitalPlatelet mean volume [Entitic volume] in Blood by Automated countOrdered By: PROVIDER TEMP on 04-14-2024 Platelet mean volume (Bld) [Entitic vol]8.8 fLNormal6.6-10.1FGrant HospitalComment on above:Performed By: #### BMP, CBC #### [facility] [address] [id number] USAPlatelets Auto (Bld) [#/Vol]Ordered By: PROVIDER TEMP on 25-85-0545Dhxqhxjod (Bld) [#/Vol]Platelets [#/volume] in Blood by Automated kfzou715-789PxmuelfsyAdena Regional Medical CenterPlatelets [#/volume] in Blood by Automated countOrdered By: PROVIDER TEMP on 95-36-4641Sgheqfloy (Bld) [#/Vol]225 10*3/oQKpenmt103-679Hgawxhjlk[address] [place], [place] [address]Comment on above:Performed By: #### BMP, CBC #### [facility] [address] [phone] USAPotassium [Moles/volume] in Serum or PlasmaOrdered By: Nhan Ramirez on 37-12-5549Nvsudcmmh [Moles/Vol]3.4 mmol/LLow3.5-5.1FGrant HospitalComment on above:Performed By: #### JODY, CBC #### [facility] [address] [phone] USAPotassium [Moles/Vol]Potassium [Moles/volume] in Serum or PlasmaLow3.5-5.1FGrant HospitalProtein Test strip (U) [Mass/Vol]Ordered By: PROVIDER TEMP on 62-48-0631Gxqwqtj (U) [Mass/Vol]Protein [Mass/volume] in Urine by Test stripHighNegLouis Stokes Cleveland VA Medical CenterProtein [Mass/volume] in Urine by Test stripOrdered By: PROVIDER TEMP on 62-61-9373Ibjnrko (U) [Mass/Vol]100 mg/dLHighNegLouis Stokes Cleveland VA Medical CenterComment on above:Order Comment: Name Collection Type:: Wiley Catheter Performed By: #### JAN TUCKERU #### [place] [id number] USARBC Auto (Bld) [#/Vol]Ordered By: PROVIDER TEMP on 00-94-1818NHR (Bld) [#/Vol]Erythrocytes [#/volume] in Blood by Automated count 3.90-5.60Newark Hospitalerum or plasma anion gap determinationOrdered By: Nhan Ramirez on 50-22-2686[place] gap [Moles/Vol]12.3 mmol/LNormal6.0-15.0[facility] CenterComment on above:Performed By: #### JODY, CBC #### [facility] [address] [place] [address] USAAnion gap [Moles/Vol]Serum or plasma anion gap determination6.0-15.0Newark Hospitalodium [Moles/volume] in Serum or PlasmaOrdered By: Nhan Ramirez on 27-73-1461Jmkpkp [Moles/Vol]137 mmol/L Cyaxxh679-632YbhuyjczqAdena Regional Medical CenterComment on above:Performed By: #### JODY, CBC #### [place] [id number] USASodium [Moles/Vol]Sodium [Moles/volume] in Serum or Plasma 136-145Newark Hospitalpecific gravity Test strip (U) [Rel density]Ordered By: PROVIDER TEMP on 32-26-3830Prxovrzp gravity (U) [Rel density]1.0241.001-1.030Newark Hospitalpecific gravity (U) [Rel density]Specific gravity of Urine by Test strip1.001-1.030[facility] Medical CenterUrea nitrogen [Mass/volume] in Serum or PlasmaOrdered By: Nhan Ramirez on 00-53-9397Egus nitrogen [Mass/Vol]20 mg/dLNormal02-20[facility] CenterComment on above:Performed By: #### BMP, CBC #### [facility] [address] [place] [address] USAUrea nitrogen [Mass/Vol]Urea nitrogen [Mass/volume] in Serum or Plasma02-20[facility] Medical CenterUrine Cultureon 04-14-2024 Bacteria identified Cx Nom (U)No Growth 2 Days PERFORMED BY: [place] [address] PATHOLOGIST SOFTWARE PRODUCT MANAGER JAMISON ANDINO M.D.[facility] Physician GroupComment on above:Performed By: #### CAITLIN, CUU #### [place] [id number] USAUrine appearanceOrdered By: PROVIDER TEMP on 04-14-2024 Appearance (U)TurbidCritically abnormalCleSycamore Medical Center Comment on above:Order Comment: Name Collection Type:: Wiley CatheterPerformed By: #### CAITLIN, CUU #### [facility] [address] [place], [place] [id number] USAUrine cultureOrdered By: PROVIDER TEMP on 04-14-2024 Bacteria identified Cx Nom (U)Urine cultureAdena Regional Medical Center Urine culture routineOrdered By: PROVIDER TEMP on 21-43-6723Mohhbypg identified Cx Nom (U)No Growth 2 DaysAdena Regional Medical CenterUrobilinogen Test strip (U) [Mass/Vol]Ordered By: PROVIDER TEMP on 53-76-6960Pumuebkziylw (U) [Mass/Vol]2 mg/dLHighNoMiami Valley HospitalUrobilinogen (U) [Mass/Vol]Urobilinogen [Mass/volume] in Urine by Test stripHighSt. Mary's Medical Center, Ironton CampusWBC Auto (Bld) [#/Vol]Ordered By: PROVIDER TEMP on 51-44-4055DXU (Bld) [#/Vol]Leukocytes [#/volume] in Blood by Automated countHigh 4.1-10.5FGrant HospitalpH Test strip (U)Ordered By: PROVIDER TEMP on 29-56-9565qK (U)pH of Urine by Test strip5.0-9.0[facility] CenterpH of Urine by Test stripOrdered By: PROVIDER TEMP on 08-59-0970tX (U)5.5 [pH]Normal5.0-9.0[facility] Medical CenterComment on above:Order Comment: Name Collection Type:: Wiley CatheterPerformed By: #### ADDONUAPLUS, CUU #### [place] [address] USALaboratory - Chemistry and Chemistry - challengeon 82-67-7310Yfkzktjmh Ql (U)NegativeNEGATIVEAdena Regional Medical Center Glucose (U) [Mass/Vol]NegativeNEGATIVEAdena Regional Medical CenterKetones Ql (U)NegativeNEGUniversity Hospitals Samaritan Medical CenterpH (U)6.0 [pH]5.0-9.0 Newark Hospitalpecific gravity (U) [Rel density]1.020 1.005-1.025[facility] Medical CenterUrobilinogen Qn (U)1.0 {Michel'U}/dL0.2-1.0[facility] CenterLaboratory - Specimen informationon 19-79-3647Ncqksvykcm (U)CLEARCLEARFGrant HospitalColor (U)YELLOWYELLOWAdena Regional Medical CenterLaboratory - Urinalysison 29-63-0836Gpjajojsa esterase Test strip Ql (U)NegativeNEGATIVE [facility] CenterMucus Ql (Urine sed)NONE SEENNONE SEENFirelands Regional Medical CenterNitrite Ql (U)NegativeNEGATIVEAdena Regional Medical CenterProtein Ql (U)NegativeNEG/TRACEAdena Regional Medical CenterNo Panel Informationon 05-92-8808Cwxar BacteriaTRACE #/HPFAbnormalNONE [facility] CenterUrine Culture ReflexedMercy Health Anderson Hospital Urine Microscopic ReviewYEAdena Health SystemUrine Occult Blood LARGEAbnormalNEGATIVEAdena Regional Medical CenterUrine Other CastsNONE SEEN #/LPFNONE [facility] CenterUrine Other CrystalsNone Seen #/HPFNone [facility] CampusUrine CSM36-83 #/HPFAbnormal0-2 [facility] CenterUrine Squamous Epithelial CellsRARE #/LPF NONE/RAREAdena Regional Medical CenterUrine WBCNONE SEEN #/HPFNONE SEEN [facility] CenterBasophils Auto (Bld) [#/Vol]on 01-02-2024 Basophils (Bld) [#/Vol]0.0 10 3/uL0.0-0.1FGrant Hospital Basophils/100 WBC Auto (Bld)on 44-05-4648Ucskfirbi/100 WBC (Bld)0.5 %0.2-2.0 [facility] CenterEosinophils/100 WBC Auto (Bld)on 01-02-2024 Eosinophils/100 WBC (Bld)2.4 %0.9-7.0[facility] Erythrocyte distribution width Auto (RBC) [Ratio]on 70-70-5209Yztlymcmilf distribution width (RBC) [Ratio]14.0 %11.0-15.0[facility] Hematocrit Auto (Bld) [Volume fraction]on 83-66-9467Djtiegvimp (Bld) [Volume fraction]35.6 %Low42.0-54.0[facility] CenterHemoglobin [Mass/volume] in Bloodon 58-31-7786Kxyzxsfbps (Bld) [Mass/Vol]11.7 g/dLLow 14.0-18.0[facility] CenterIron binding capacity [Mass/volume] in Serum or Plasmaon 01-41-8380Belv binding capacity [Mass/Vol]330.0 ug/dL 250.0-450.0[facility] CenterIron saturation [Mass Fraction] in Serum or Plasmaon 51-76-7644Ykin saturation [Mass fraction]49.4 %[facility] CenterLaboratory - Chemistry and Chemistry - challengeon 05-89-3749Hverhzuf [Mass/Vol]81.0 ng/mL26.0-388.0[facility] CenterIron [Mass/Vol]163.0 ug/dL65.0-175.0[facility] Laboratory - Hematology and Cell countson 18-00-5643Eiysbacu granulocytes/100 WBC (Bld)0.3 %0.0-0.5FGrant HospitalLeukocytes [#/volume] corrected for nucleated erythrocytes in Blood by Automated counon 55-38-8350MUN corrected for nucl RBC Auto (Bld) [#/Vol]7.5 10 3/uL4.0-11.0[facility] CenterLymphocytes Auto (Bld) [#/Vol]on 69-36-0035Xqjmvixczbl (Bld) [#/Vol]1.7 10 3/uL1.2-3.8[facility] CenterLymphocytes/100 WBC Auto (Bld)on 34-74-7382Xejwwvfgwow/100 WBC (Bld)22.4 %20.5-60.0[facility] HospitalH Auto (RBC) [Entitic mass]on 16-96-7058DRP (RBC) [Entitic mass]32.7 pg25.9-34.0[facility] Medical CenterMCHC Auto (RBC) [Mass/Vol]on 44-98-8284PIUR (RBC) [Mass/Vol]32.9 g/dL29.9-35.2FGrant HospitalMCV Auto (RBC) [Entitic vol]on 00-49-8451HVO (RBC) [Entitic vol] 99.4 gZYgwp49.0-94.0[facility] CenterMonocytes Auto (Bld) [#/Vol]on 80-80-2413Tfgcntljv (Bld) [#/Vol]0.6 10 3/uL0.3-0.8[facility] CenterMonocytes/100 WBC Auto (Bld)on 07-24-6880Lcjjsstcq/100 WBC (Bld) 8.0 %1.7-12.0[facility] CenterNeutrophils Auto (Bld) [#/Vol]on 37-91-5093Rgfwwimzkxh (Bld) [#/Vol]5.0 10 3/uL1.4-6.5FGrant HospitalNeutrophils/100 WBC Auto (Bld)on 77-84-2336Zzpdwwzzvto/100 WBC (Bld)66.4 % 43.0-75.0[facility] CenterNo Panel Informationon 01-02-2024 Eosinophils # (Auto)0.2 10 3/uL0.0-0.7FGrant HospitalImmature Granulocyte # (Auto)0.02 10 3/uL0.00-0.03[facility] Platelet mean volume Auto (Bld) [Entitic vol]on 08-22-8787Rvylogyd mean volume (Bld) [Entitic vol]10.6 fL9.5-13.5FGrant HospitalPlatelets Auto (Bld) [#/Vol]on 09-61-6751Rsawbyiql (Bld) [#/Vol]223 10 3/bA959-832 [facility] CenterRBC Auto (Bld) [#/Vol]on 31-44-8808XON (Bld) [#/Vol]3.58 10 6/uLLow4.70-6.10[facility] CenterConsultation Noteon 66-49-6673Auarddvzwkqf Note [id number]#1.00TIFFNormSelect Medical Specialty Hospital - YoungstownRAD - CT Reporton 81-10-6879CVC - CT Report [id number]#1.00TIFGalion HospitalCalcium [Mass/volume] in Serum or PlasmaOrdered By: George Romero on 73-39-2429Debinqz [Mass/Vol]8.8 mg/dL8.6-10.3FGrant Hospital Carbon dioxide, total [Moles/volume] in Serum or PlasmaOrdered By: George Romero on 01-89-2053KQ2 [Moles/Vol]28.2 mmol/L21.0-31.0[facility] CenterChloride [Moles/volume] in Serum or PlasmaOrdered By: George Romero on 00-70-3146Ylztxaxq [Moles/Vol]109 mmol/F57-742FtneulhzsAdena Regional Medical CenterCreatinine [Mass/volume] in Serum or PlasmaOrdered By: George Romero on 09-45-8097Jzwxncflrs [Mass/Vol]0.94 mg/dL0.70-1.30[facility] CenterErythrocyte distribution width Auto (RBC) [Ratio]Ordered By: George Romero on 04-92-1469Oedvqjthbjl distribution width (RBC) [Ratio]13.7 % 12.0-14.8[facility] CenterGlucose [Mass/volume] in Serum or PlasmaOrdered By: George Romero on 19-37-3162Crjddjv [Mass/Vol]88 mg/gY30-233 [facility] CenterComment on above:ADA recommended reference rangeRandom Glucose Reference Range is dependent on time and content of last meal. Glucose of more than 200 mg/dL in a nonstressed, ambulatory subject supports the diagnosisof Diabetes Mellitus.Hematocrit Auto (Bld) [Volume fraction]Ordered By: George Romero on 51-07-0271Qcieavnaju (Bld) [Volume fraction]24.8 %38.8-50.0[facility] CenterHemoglobin [Mass/volume] in BloodOrdered By: George Romero on 91-49-5344Tbfwmnmjig (Bld) [Mass/Vol]8.5 g/dL13.0-17.0[facility] CenterLeukocytes [#/volume] corrected for nucleated erythrocytes in Blood by Automated coun Ordered By: George Romero on 25-52-0274LFR corrected for nucl RBC Auto (Bld) [#/Vol]5.0 10*3/uL4.1-10.5FGrant HospitalMCH Auto (RBC) [Entitic mass]Ordered By: George Romero on 01-93-1287NWZ (RBC) [Entitic mass] 33.2 pg27.5-35.2FGrant HospitalMCHC Auto (RBC) [Mass/Vol] Ordered By: George Romero on 65-78-6191KIIQ (RBC) [Mass/Vol]34.4 g/dL32.5-35.6 [facility] CenterMCV Auto (RBC) [Entitic vol]Ordered By: George Romero on 22-02-8196ZHI (RBC) [Entitic vol]96.7 fL83.5-101[facility] CenterMagnesium [Mass/volume] in Serum or PlasmaOrdered By: George Romero on 58-89-8277Dufhncxfc [Mass/Vol]1.6 mg/dL1.9-2.7FGrant HospitalNo Panel InformationOrdered By: George Romero on 12-01-2023 Estimated GFR (CKD-EPI)> 60.0 mL/MinAdena Regional Medical CenterPharmacy Creatinine Clearance (Chem56.60[facility] CenterPlatelet mean volume Auto (Bld) [Entitic vol]Ordered By: George Romero on 60-80-1541Qukwntru mean volume (Bld) [Entitic vol]8.8 fL6.6-10.1FGrant Hospital Platelets Auto (Bld) [#/Vol]Ordered By: George Romero on 13-46-3747Mdzgoiksi (Bld) [#/Vol]208 10*3/mX018-687JkicgibkvAdena Regional Medical CenterPotassium [Moles/volume] in Serum or PlasmaOrdered By: George Romero on 12-01-2023 Potassium [Moles/Vol]3.7 mmol/L3.5-5.1FGrant HospitalRBC Auto (Bld) [#/Vol]Ordered By: George Romero on 44-53-1635QFG (Bld) [#/Vol]2.57 10*6/uL3.90-5.60Newark Hospitalerum or plasma anion gap determinationOrdered By: George Romero on 20-65-4799Uebxt gap [Moles/Vol]7.5 mmol/L6.0-15.0Newark Hospitalodium [Moles/volume] in Serum or PlasmaOrdered By: George Romero on 94-19-3362Feibnm [Moles/Vol]141 mmol/L 136-145[facility] CenterUrea nitrogen [Mass/volume] in Serum or PlasmaOrdered By: George Romero on 19-25-2703Dgtd nitrogen [Mass/Vol]9 mg/dL 7-25[facility] CenterProstate specific Ag [Mass/volume] in Serum or PlasmaOrdered By: Syed Buchanan on 62-87-6848Dcsldsie specific Ag [Mass/Vol]18.310 ng/mL0.000-4.000[facility] CenterComment on above:Serial tumor marker results determined by assays using different manufacturers or methods may not be comparable.[facility] information technology intern and method:ATEME DXI, CHEMILUMINESCENT IMMUNOASSAY.Urine culture routineOrdered By: Syed Buchanan on 53-01-6729Vrtqouvc identified Cx Nom (U) 2 DaysAdena Regional Medical CenterActivated partial thromboplastin time (aPTT) in platelet poor plasma by coagulation aOrdered By: Bárbara Ramirez on 91-62-3914oCFQ Coag (PPP) [Time]35.6 s25.1-36.5FGrant Hospital Comment on above:A hematocrit value greater than 55% may lead to inaccurate results in coagulation testing. Patientshaving hematocrit values >55% require a special collection tube for coagulation studies. Please contact the laboratory at [phone] for redraw instructions.Alanine aminotransferase [Enzymatic activity/volume] in Serum or PlasmaOrdered By: Bárbara Ramirez on 83-61-8488MBY [Catalytic activity/Vol]13 U/L7-52[facility] Medical CenterAlbumin [Mass/volume] in Serum or Plasma by Bromocresol green (BCG) dye binding metho Ordered By: Bárbara Ramirez on 90-35-9998Fvvatow BCG dye [Mass/Vol]3.6 g/dL3.5-5.7 [facility] CenterAlkaline phosphatase [Enzymatic activity/volume] in Serum or PlasmaOrdered By: Bárbara Ramirez on 90-94-2797MAQ [Catalytic activity/Vol]117 U/K65-819LsynkfcxhAdena Regional Medical CenterAspartate aminotransferase [Enzymatic activity/volume] in Serum or PlasmaOrdered By: Bárbara Ramirez on 53-87-8105KGV [Catalytic activity/Vol]21 U/T10-63RralvdaazAdena Regional Medical CenterBasophils Auto (Bld) [#/Vol]Ordered By: Bárbara Ramirez on 11-29-2023 Basophils (Bld) [#/Vol]0.0 10*3/uL0.0-0.2FGrant Hospital Basophils/100 WBC Auto (Bld)Ordered By: Bárbara Ramirez on 64-61-0129Pxxtoozzo/100 WBC (Bld)0.7 %.[facility] Medical CenterBilirubin.direct [Mass/volume] in Serum or PlasmaOrdered By: Bárbara Ramirez on 52-69-9749Tiuxzatso.direct [Mass/Vol]0.20 mg/dL0.03-0.18FGrant HospitalBilirubin.total [Mass/volume] in Serum or PlasmaOrdered By: Bárbara Ramirez on 61-01-7442Hqtbvoaho [Mass/Vol]1.4 mg/dL0.3-1.0[facility] CenterComment on above: Samples from patients who have taken Naproxen have shown spurious elevation in Total Bilirubin levels. A metabolite of Naproxen, O-desmethylnaproxen, has been shown to interfere with the Binta-Charles method for measuring Total Bilirubin.Eosinophils Auto (Bld) [#/Vol]Ordered By: Bárbara Ramirez on 11-29-2023 Eosinophils (Bld) [#/Vol]0.1 10*3/uL0.0-0.45[facility] Eosinophils/100 WBC Auto (Bld)Ordered By: Bárbara Ramirez on 11-29-2023 Eosinophils/100 WBC (Bld)1.6 %.[facility] Medical CenterGlobulin Calc (S) [Mass/Vol]Ordered By: Bárbara Ramirez on 20-15-9440Jnsuzxcb (S) [Mass/Vol]1.8 g/dLAdena Regional Medical CenterINR in Platelet poor plasma by Coagulation assayOrdered By: Bárbara Ramirez on 32-84-5418KWW Coag (PPP) [Relative time]1.0 {INR}[facility] CenterComment on above:INR Therapeutic Range A) Pre- and Peroperative OAT started two weeks before surgery. NOT HIP SURGERY: 1.5 - 2.5 HIP SURGERY: 2 - 3B) Primary and secondary prevention of venous THROMBOSIS: 2 - 3C) Active venous thrombosis, pulmonary embolismand prevention of recurrent venous thrombosis: 2 - 3D) Prevention of arterial thromboembolismincluding patients with mechanical heart valves: 3 - 4.5 Lymphocytes Auto (Bld) [#/Vol]Ordered By: Bárbara Ramirez on 99-72-5084Fgdjmajaexs (Bld) [#/Vol]1.7 10*3/uL1.00-4.8[facility] CenterLymphocytes/100 WBC Auto (Bld)Ordered By: Bárbara Ramirez on 20-12-1000Jrwxfxbmzhb/100 WBC (Bld) 22.7 %.[facility] CenterMonocytes Auto (Bld) [#/Vol]Ordered By: Bárbara Ramirez on 94-36-8471Zdfgimbtc (Bld) [#/Vol]0.7 10*3/uL0.0-0.8[facility] CenterMonocytes/100 WBC Auto (Bld)Ordered By: Bárbara Ramirez on 48-61-4026Wqtmjymse/100 WBC (Bld)9.2 %.[facility] Neutrophils Auto (Bld) [#/Vol]Ordered By: Bárbara Ramirez on 71-70-6203Bywowifjwpo (Bld) [#/Vol]4.8 10*3/uL1.8-7.7FGrant HospitalNeutrophils/100 WBC Auto (Bld)Ordered By: Bárbara Ramirez on 66-12-5160Dmttooyeged/100 WBC (Bld)65.8 %.[facility] CenterNucleated erythrocytes [Presence] in Blood by Automated countOrdered By: Bárbara Ramirez on [id number] RBC Auto Ql (Bld)0.1 /100{WBC}0-0.5FGrant HospitalProtein [Mass/volume] in Serum or PlasmaOrdered By: Bárbara Ramirez on [id number] [Mass/Vol]5.4 g/dL 6.4-8.9[facility] CenterProthrombin time (PT)Ordered By: Bárbara Ramirez on 54-11-3505GI Coag (PPP) [Time]11.5 s9.0-12.9[facility] CenterComment on above:A hematocrit value greater than 55% may lead to inaccurate results in coagulation testing. Patientshaving hematocrit values >55% require a special collection tube for coagulation studies. Please contact the laboratory at [phone] for redraw instructions.Serum or plasma albumin/globulin mass ratioOrdered By: Bárbara Ramirez on 28-63-5775Xbmfyfj/Globulin [Mass ratio]2.0 {ratio}[facility] Hospitalerum or plasma non- glucuronidated bilirubin measurement (mass/volume)Ordered By: Bárbara Ramirez on 47-36-8053Xcpqxspne.indirect [Mass/Vol]1.2 mg/dLAdena Regional Medical CenterWBC Auto (Bld) [#/Vol]Ordered By: Bárbara Ramirez on 04-95-2951FRE (Bld) [#/Vol]7.3 10*3/uL4.1-10.5FGrant HospitalBasophils Auto (Bld) [#/Vol]on 77-39-2763Tccljkjkt (Bld) [#/Vol]0.1 10 3/uL0.0-0.1FGrant HospitalBasophils/100 WBC Auto (Bld)on 81-99-6751Kcajyjhnr/100 WBC (Bld) 0.5 %0.2-2.0[facility] CenterEosinophils/100 WBC Auto (Bld)on 07-47-9688Mnvmnytvwim/100 WBC (Bld)0.3 %0.9-7.0[facility] Erythrocyte distribution width Auto (RBC) [Ratio]on 91-64-5513Rshecawsdwb distribution width (RBC) [Ratio]13.5 %11.0-15.0[facility] Estimated glomerular filtration rate (GFR) non- Americanon 11-28-2023 GFR/1.73 sq M.predicted among non-blacks MDRD (S/P/Bld) [Vol rate/Area]58 mL/min/{1.73_m2}>=60[facility] CenterGlobulin Calc (S) [Mass/Vol]on 66-57-6214Nfwwkxal (S) [Mass/Vol]3.0 g/dLAdena Regional Medical CenterHematocrit Auto (Bld) [Volume fraction]on 68-61-9640Tuqwaxtndk (Bld) [Volume fraction]33.2 %42.0-54.0[facility] CenterHemoglobin [Mass/volume] in Bloodon 14-87-9782Byewpztein (Bld) [Mass/Vol]11.2 g/dL14.0-18.0 [facility] CenterINR in Platelet poor plasma by Coagulation assayon 38-30-7026VCY Coag (PPP) [Relative time]1.02 {INR}[facility] CenterComment on above:DESIRED INR:2.0-3.0 CONDITIONS NOT LISTED BELOW2.5-3.5 FOR PROSTHETIC HEART VALVE REPLACEMENT2.5-3.5 RECURRENT THROMBOSIS Laboratory - Chemistry and Chemistry - challengeon 31-19-1369Qjbilmq [Mass/Vol] 3.7 g/dL3.4-5.0[facility] CenterALP [Catalytic activity/Vol]175 U/R36-235TocuqvswxAdena Regional Medical CenterALT [Catalytic activity/Vol]24 U/L 16-63[facility] CenterAST [Catalytic activity/Vol]24 U/L15-37 [facility] CenterBilirubin [Mass/Vol]1.1 mg/dL0.2-1.0[facility] CenterCalcium [Mass/Vol]9.4 mg/dL8.5-10.1FGrant HospitalChloride [Moles/Vol]102 mmol/X72-779UyhxbbabuAdena Regional Medical CenterCO2 [Moles/Vol]28.7 mmol/L21.0-32.0[facility] Creatinine [Mass/Vol]1.19 mg/dL0.70-1.30[facility] GFR/1.73 sq M.predicted MDRD (S/P/Bld) [Vol rate/Area]mL/min/{1.73_m2}>=60 [facility] CenterGlucose [Mass/Vol]114 mg/kP19-609NwleasregAdena Regional Medical CenterLactate [Moles/Vol]1.4 mmol/L0.4-2.0[facility] CenterPotassium [Moles/Vol]3.9 mmol/L3.5-5.1FGrant HospitalProtein [Mass/Vol]6.7 g/dL6.4-8.2FMcCullough-Hyde Memorial Hospitalodium [Moles/Vol]140 mmol/B033-469FczwajsgvAdena Regional Medical CenterUrea nitrogen [Mass/Vol]23.0 mg/dL7.0-18.0[facility] CenterUrea nitrogen/Creatinine [Mass ratio]19.3 mg/mgAdena Regional Medical Center Laboratory - Hematology and Cell countson 82-92-8187Ucobaszx granulocytes/100 WBC (Bld)0.4 %0.0-0.5FGrant HospitalLeukocytes [#/volume] corrected for nucleated erythrocytes in Blood by Automated counon 37-13-9881KPC corrected for nucl RBC Auto (Bld) [#/Vol]9.2 10 3/uL4.0-11.0[facility] CenterLymphocytes Auto (Bld) [#/Vol]on 30-32-3760Dbuemgmycva (Bld) [#/Vol]1.4 10 3/uL1.2-3.8[facility] CenterLymphocytes/100 WBC Auto (Bld)on 32-97-0796Nbqkexwwbcw/100 WBC (Bld)15.2 %20.5-60.0[facility] CenterMCH Auto (RBC) [Entitic mass]on 48-45-0930PTC (RBC) [Entitic mass]32.7 pg25.9-34.0[facility] CenterMCHC Auto (RBC) [Mass/Vol]on 94-63-4939CQWF (RBC) [Mass/Vol]33.7 g/dL29.9-35.2FGrant HospitalMCV Auto (RBC) [Entitic vol]on 60-20-7492UKB (RBC) [Entitic vol] 96.8 fL80.0-94.0[facility] CenterMonocytes Auto (Bld) [#/Vol]on 47-26-9808Qzisryfyq (Bld) [#/Vol]0.5 10 3/uL0.3-0.8[facility] CenterMonocytes/100 WBC Auto (Bld)on 11-16-9218Yfznhupou/100 WBC (Bld)5.8 % 1.7-12.0[facility] CenterNeutrophils Auto (Bld) [#/Vol]on 76-35-3693Jbsmxzoraat (Bld) [#/Vol]7.2 10 3/uL1.4-6.5FGrant HospitalNeutrophils/100 WBC Auto (Bld)on 72-82-6338Sczsrgedsej/100 WBC (Bld)77.8 % 43.0-75.0[facility] CenterNo Panel Informationon 11-28-2023 Eosinophils # (Auto)0.0 10 3/uL0.0-0.7FGrant HospitalImmature Granulocyte # (Auto)0.04 10 3/uL0.00-0.03[facility] Platelet mean volume Auto (Bld) [Entitic vol]on 54-70-1352Bzhxcodc mean volume (Bld) [Entitic vol]10.5 fL9.5-13.5FGrant HospitalPlatelets Auto (Bld) [#/Vol]on 85-68-3886Qhjufbmwb (Bld) [#/Vol]208 10 3/sC998-625 [facility] CenterProthrombin time (PT)on 45-08-7129CI Coag (PPP) [Time]10.8 s9.0-11.6FGrant HospitalRBC Auto (Bld) [#/Vol]on 21-16-0790CZL (Bld) [#/Vol]3.43 10 6/uL4.70-6.10[facility] Hospitalerum or plasma albumin/globulin mass ratioon 69-40-6920Dfxnpof/Globulin [Mass ratio]1.2 {ratio}[facility] Hospitalerum or plasma anion gap determinationon 74-16-2781Icvdo gap [Moles/Vol]13.2 mmol/LFGrant HospitalBasophils Auto (Bld) [#/Vol]Ordered By: John Adam on 11-07-2023 Basophils (Bld) [#/Vol]0.0 10*3/uL0.0-0.2FGrant Hospital Basophils/100 WBC Auto (Bld)Ordered By: John Adam on 74-54-5991Yiqizmkap/100 WBC (Bld)0.4 %.[facility] CenterCalcium [Mass/volume] in Serum or PlasmaOrdered By: John Adam on 46-19-9405Iqqchfb [Mass/Vol]10.0 mg/dL 8.6-10.3FGrant HospitalCarbon dioxide, total [Moles/volume] in Serum or PlasmaOrdered By: John Adam on 22-93-0659UJ9 [Moles/Vol]33.6 mmol/L 21.0-31.0[facility] CenterChloride [Moles/volume] in Serum or PlasmaOrdered By: John Adam on 18-90-1797Nlimyyzo [Moles/Vol]100 mmol/L98-107 [facility] CenterCreatinine [Mass/volume] in Serum or Plasma Ordered By: John Adam on 32-44-7355Qwbyvluhll [Mass/Vol]1.05 mg/dL0.70-1.30 [facility] CenterEosinophils Auto (Bld) [#/Vol]Ordered By: John Adam on 29-44-2391Ondlrkhyeby (Bld) [#/Vol]0.1 10*3/uL0.0-0.45[facility] CenterEosinophils/100 WBC Auto (Bld)Ordered By: John Adam on 95-47-5320Wfpwnlcsxfm/100 WBC (Bld)1.3 %.[facility] Erythrocyte distribution width Auto (RBC) [Ratio]Ordered By: John Adam on 03-90-1702Ekiwlkopzxp distribution width (RBC) [Ratio]14.0 %12.0-14.8[facility] CenterGlucose [Mass/volume] in Serum or PlasmaOrdered By: John Adam on 62-41-1766Rwitodq [Mass/Vol]111 mg/tS82-675OlkaiogplAdena Regional Medical CenterComment on above:ADA recommended reference rangeRandom Glucose Reference Range is dependent on time and content of last meal. Glucose of more than 200 mg/dL in a nonstressed, ambulatory subject supports the diagnosisof Diabetes Mellitus.Hematocrit Auto (Bld) [Volume fraction]Ordered By: John Adam on 57-19-3294Zcrtvdvlxg (Bld) [Volume fraction]44.3 %38.8-50.0[facility] CenterHemoglobin [Mass/volume] in BloodOrdered By: John Adam on 92-22-8744Sflubifdzz (Bld) [Mass/Vol]15.0 g/dL13.0-17.0[facility] CenterLeukocytes [#/volume] corrected for nucleated erythrocytes in Blood by Automated counOrdered By: John Adam on 26-89-6642USK corrected for nucl RBC Auto (Bld) [#/Vol]7.5 10*3/uL4.1-10.5FGrant Hospital Lymphocytes Auto (Bld) [#/Vol]Ordered By: John Adam on 73-44-4325Jjijwhapafp (Bld) [#/Vol]1.6 10*3/uL1.00-4.8[facility] CenterLymphocytes/100 WBC Auto (Bld)Ordered By: John Adam on 39-38-5365Cyrkksbghts/100 WBC (Bld)20.7 %.[facility] HospitalH Auto (RBC) [Entitic mass]Ordered By: John Adam on 47-88-5288GBD (RBC) [Entitic mass]32.7 pg27.5-35.2FGrant HospitalMCHC Auto (RBC) [Mass/Vol]Ordered By: John Adam on 77-59-7783JAYI (RBC) [Mass/Vol]33.9 g/dL32.5-35.6FGrant HospitalMCV Auto (RBC) [Entitic vol]Ordered By: John Adam on 96-90-7984NEE (RBC) [Entitic vol]96.3 fL83.5-101[facility] CenterMonocytes Auto (Bld) [#/Vol]Ordered By: John Adam on 72-83-6437Eqiezyzun (Bld) [#/Vol]0.5 10*3/uL0.0-0.8[facility] CenterMonocytes/100 WBC Auto (Bld) Ordered By: John Adam on 41-54-5300Ntoacuzbr/100 WBC (Bld)7.0 %.[facility] CenterNeutrophils Auto (Bld) [#/Vol]Ordered By: Jonh Adam on 39-53-8017Wzssuhlsily (Bld) [#/Vol]5.3 10*3/uL1.8-7.7FGrant HospitalNeutrophils/100 WBC Auto (Bld)Ordered By: John Adam on 11-07-2023 Neutrophils/100 WBC (Bld)70.6 %.[facility] CenterNo Panel InformationOrdered By: John Adam on 24-98-8775Uteztojho GFR (CKD-EPI)> 60.0 mL/MinAdena Regional Medical CenterPharmacy Creatinine Clearance (ChemN/A [facility] CenterNucleated erythrocytes [Presence] in Blood by Automated countOrdered By: John Adam on 93-42-2186Ecluunxvz RBC Auto Ql (Bld) 0.1 /100{WBC}0-0.5FGrant HospitalPlatelet mean volume Auto (Bld) [Entitic vol]Ordered By: John Adam on 14-39-9292Ulwsjfmr mean volume (Bld) [Entitic vol]8.7 fL6.6-10.1FGrant HospitalPlatelets Auto (Bld) [#/Vol]Ordered By: John Adam on 50-17-5124Kqcjtswpi (Bld) [#/Vol]228 10*3/vZ808-341GphsyumpkAdena Regional Medical CenterPotassium [Moles/volume] in Serum or PlasmaOrdered By: John Adam on 75-84-9182Rsksimtdm [Moles/Vol]4.2 mmol/L 3.5-5.1FGrant HospitalRBC Auto (Bld) [#/Vol]Ordered By: John Adam on 20-54-2975IFB (Bld) [#/Vol]4.60 10*6/uL3.90-5.60[facility] Hospitalerum or plasma anion gap determinationOrdered By: John Adam on 25-40-6920Drybk gap [Moles/Vol]10.6 mmol/L6.0-15.0[facility] Hospitalodium [Moles/volume] in Serum or PlasmaOrdered By: John Adam on 35-37-1709Ubtbsv [Moles/Vol]140 mmol/H248-003GrzkzqmucAdena Regional Medical Center Urea nitrogen [Mass/volume] in Serum or PlasmaOrdered By: John Adam on 51-07-2253Iksc nitrogen [Mass/Vol]21 mg/dL7-25[facility] WBC Auto (Bld) [#/Vol]Ordered By: John Adam on 04-22-9344IOA (Bld) [#/Vol]7.5 10*3/uL4.1-10.5FGrant HospitalFOLATE, RBCon 65-45-4484Convqd, Fisinkhpqm934.0 ng/mLNormalNot Estab.The [facility] CenterComment on above: Performed By: #### CBC #### [facility] [address] [address] [address] Haile OmalleyFolate, JLS118 ng/mLNormal>498The [facility] CenterComment on above:Performed By: #### CBC #### [facility] [address] [address] [address] Haile OmalleyHematocrit (Bld) [Volume fraction]40.1 %Aplliz21.5-51.0The [facility] CenterComment on above:Performed By: #### CBC #### [facility] [address] [address] [address] Haile OmalleyCBC AUTO DIFFon 90-80-2166KHMX #0.0 103/ulNormal0.0-0.1The [facility] CenterComment on above:Performed By: #### CBC #### [facility] [address] [place] [address] Dr. Haile OmalleyBasophils/100 WBC (Bld)0.3 %Normal0.2-2.0The [facility] Comment on above:Performed By: #### CBC #### [facility] [address] [place] [address] Dr. Haile Dominguez #0.1 103/ulNormal0.0-0.7The [facility] CenterComment on above: Performed By: #### CBC #### [facility] [address] [place] [address] Dr. Haile Rodriguezosinophils/100 WBC (Bld)1.4 %Normal0.9-7.0The [facility] Comment on above:Performed By: #### CBC #### [facility] [address] [place] [address] Dr. Haile Rodriguezrythrocyte distribution width (RBC) [Ratio]13.3 %Sgyzwu96.0-15.0 [facility] CenterComment on above:Performed By: #### CBC #### [facility] [address] [place] [address] Dr. Haile OmalleyHematocrit (Bld) [Volume fraction]40.8 %Critically low42.0-54.0 [facility] CenterComment on above:Performed By: #### CBC #### [facility] [address] [place] [address] Dr. Haile OmalleyHemoglobin (Bld) [Mass/Vol]13.8 g/dLCritically low14.0-18.0The [facility] CenterComment on above:Performed By: #### CBC #### [facility] [address] [place] [address] Dr. Haile Martinez #0.04 10e3/ulCritically high0.00-0.03The [facility] Comment on above:Performed By: #### CBC #### [facility] [address] [place] [address] Dr. Haile Martinez %0.5 %Normal0.0-0.5The [facility] CenterComment on above: Performed By: #### CBC #### [facility] [address] [place] [address] Dr. Haile Tinoco #1.4 103/ulNormal1.2-3.8The [facility] CenterComment on above:Performed By: #### CBC #### [facility] [address] [place] [address] Dr. Haile Menonmphocytes/100 WBC (Bld)16.4 %Critically low20.5-60.0The [facility] CenterComment on above:Performed By: #### CBC #### [facility] [address] [place] [address] Dr. Haile Goss DIFF REQNONormalThe Pearl City HospitalComment on above: Performed By: #### CBC #### [facility] [address] [place] [address] Dr. Haile Reese (RBC) [Entitic mass]32.0 jcSekkym18.9-34.0The [facility] CenterComment on above:Performed By: #### CBC #### [facility] [address] [place] [address] Dr. Haile Reese (RBC) [Mass/Vol]33.8 g/fQPkkeif20.9-35.2The [facility] CenterComment on above:Performed By: #### CBC #### [facility] [address] [place] [address] Dr. Haile Miranda (RBC) [Entitic vol]94.7 fLCritically high80.0-94.0The [facility] CenterComment on above:Performed By: #### CBC #### [facility] [address] [place] [address] Dr. Haile Varma #0.8 103/ulNormal0.3-0.8The [facility] CenterComment on above:Performed By: #### CBC #### [facility] [address] [place] [address] Dr. Haile Littleocytes/100 WBC (Bld)9.6 %Normal1.7-12.0[facility] Comment on above:Performed By: #### CBC #### [facility] [address] [place] [address] Dr. Haile Lau #6.2 103/ulNormal1.4-6.5The [facility] CenterComment on above:Performed By: #### CBC #### [facility] [address] [place] [address] Dr. Haile OmalleyNeutrophils/100 WBC (Bld)71.8 %Bcebta45.0-75.0The [facility] CenterComment on above:Performed By: #### CBC #### [facility] [address] [place] [address] Dr. Haile OmalleyPlatelet mean volume (Bld) [Entitic vol]10.6 fLNormal9.5-13.5The [facility] CenterComment on above:Performed By: #### CBC #### [facility] [address] [place] [address] Dr. Haile BrionesT212 103/iyPxzfsl978-088Mnh [facility] CenterComment on above: Performed By: #### CBC #### [facility] [address] [place] [address] Dr. Haile OmalleyRBC4.31 106/ulCritically low4.70-6.10The [facility] CenterComment on above:Performed By: #### CBC #### [facility] [address] [place] [address] Dr. Haile OmalleyWBC8.6 103/ulNormal4.0-11.0The [facility] CenterComment on above: Performed By: #### CBC #### [facility] [address] [place] [address] Dr. Haile OmalleyFERRITINon 16-81-3940Bsarjjrf [Mass/Vol]395.0 ng/mLCritically high26.0-388.0The [facility] CenterComment on above:Performed By: #### CBC #### [facility] [address] [place] [address] Dr. Haile Gallegos AND TIBCon 10-25-2022% CUCECPUKRT07.7 %NormalThe [facility] CenterComment on above:Performed By: #### CBC #### [facility] [address] [place] [address] Dr. Haile Gallegos [Mass/Vol]31.0 ug/dLCritically low65.0-175.0[facility] CenterComment on above:Performed By: #### CBC #### [facility] [address] [place] [address] Dr. Haile OmalleyTIBC TAVJPR400.0 ug/zUVhejzc583.0-450.0[facility] Comment on above:Performed By: #### CBC #### [facility] [address] [place] [address] Dr. Haile OmalleyVITAMIN B12on 34-89-4067Aczxuness (Vitamin B12) [Mass/Vol]531.0 pg/yVErrbjt394.0-986.0The [facility] CenterComment on above:Performed By: #### CBC #### [facility] [address] [place] [address] Dr. Haile OmalleyUA RANDOM W/MICROSCOPICon 95-14-3895PNXLKTSJPZFS SEENNormalNONE SEENSouthwest General Health CenterComment on above:Performed By: #### UAMIC #### [facility] [address] [place] [address] Dr. Haile Conley Ql (U)NegativeNormalNEGATIVESouthwest General Health Center Comment on above:Performed By: #### UAMIC #### [facility] [address] [place] [address] Dr. Haile OmalleyCASTNONE SEENNormalNONE SEENSouthwest General Health CenterComment on above:Performed By: #### UAMIC #### [facility] [address] [place] [address] Dr. Haile Ritter (U)CLEARNormalCLEARThe [facility] CenterComment on above: Performed By: #### UAMIC #### [facility] [address] [place] [address] Dr. Haile Wiley (U)YELLOWNormalYELLOWSouthwest General Health CenterComment on above: Performed By: #### UAMIC #### [facility] [address] [place] [address] Dr. Haile Stephensystals LM Nom (Urine sed)NONE SEENNormalNONE SEENSouthwest General Health CenterComment on above:Performed By: #### UAMIC #### [facility] [address] [address] [address] Haile Saavedrathelial cells LM Ql (Urine sed)RARENormalNONE SEEN /RARESouthwest General Health CenterComment on above:Performed By: #### UAMIC #### [facility] [address] [address] [address] Haile OmalleyGlucose Ql (U)NegativeNormalNEGATIVESouthwest General Health CenterComment on above:Performed By: #### UAMIC #### [facility] [address] [place] [address] Dr. Haile OmalleyHemoglobin Ql (U)NegativeNormalNEGATIVEAccess [facility] [place] on above:Performed By: #### UAMIC #### [facility] [address] [place] [address] Dr. Haile OmalleyKetones Ql (U)NegativeNormalNEGATIVESouthwest General Health CenterComment on above:Performed By: #### UAMIC #### [facility] [address] [place] [address] Dr. Haile OmalleyLEUKOCYTESNegativeNormalNEGATIVESouthwest General Health CenterComhavenwyck hospital on above:Performed By: #### UAMIC #### [facility] [address] [place] [address] Dr. Haile OmalleyMUCOUSNONE SEENNormalNONE SEENSouthwest General Health CenterComment on above:Performed By: #### UAMIC #### [facility] [address] [place] [address] Dr. Haile OmalleyNitrite Ql (U)NegativeNormalNEGATIVESouthwest General Health CenterComment on above:Performed By: #### UAMIC #### [facility] [address] [place] [address] Dr. Haile OmalleypH (U)8.0 [pH]Normal5-9[facility] CenterComment on above: Performed By: #### UAMIC #### [facility] [address] [place] [address] Dr. Haile JolleyCNONE SEENAbnormal0-2The [facility] CenterComment on above: Performed By: #### UAMIC #### [facility] [address] [place] [address] Dr. Haile OmalleySPEC GRAVITY1.057Olqphb7.005-<=1.025[facility] Health CenterComment on above:Performed By: #### UAMIC #### [facility] [address] [place] [address] Dr. Haile Neri PROTEINNegativeNormalNEGATIVE/ TRACEThe [facility] Comment on above:Performed By: #### UAMIC #### [facility] [address] [place] [address] Dr. Haile Albert Qn (U)4 {Michel'U}/dLAbnormal0.2 - 1.0[facility] CenterComment on above:Performed By: #### UAMIC #### [facility] [address] [place] [address] Dr. Haile OmalleyWBCNONE SEENNormalNONE SEENSouthwest General Health CenterComment on above: Performed By: #### UAMIC #### [facility] [address] [place] [address] Dr. Haile Mendieta AUTO DIFFon 02-03-8648EQHY #0.0 103/ulNormal0.0-0.1[facility] CenterComment on above:Performed By: #### CBC #### [facility] [address] [place] [address] Dr. Haile OmalleyBasophils/100 WBC (Bld)0.3 %Normal0.2-2.0[facility] Comment on above:Performed By: #### CBC #### [facility] [address] [place] [address] Dr. Haile Dominguez #0.1 103/ulNormal0.0-0.7The [facility] CenterComment on above: Performed By: #### CBC #### [facility] [address] [place] [address] Dr. Haile Rodriguezosinophils/100 WBC (Bld)1.0 %Normal0.9-7.0The [facility] Comment on above:Performed By: #### CBC #### [facility] [address] [place] [address] Dr. Haile Rodriguezrythrocyte distribution width (RBC) [Ratio]13.3 %Ziydlg39.0-15.0 The [facility] CenterComment on above:Performed By: #### CBC #### [facility] [address] [place] [address] Dr. Haile OmalleyHematocrit (Bld) [Volume fraction]40.0 %Critically low42.0-54.0 The [facility] CenterComment on above:Performed By: #### CBC #### [facility] [address] [place] [address] Dr. Haile OmalleyHemoglobin (Bld) [Mass/Vol]13.5 g/dLCritically low14.0-18.0The [facility] CenterComment on above:Performed By: #### CBC #### [facility] [address] [place] [address] Dr. Haile Martinez #0.02 10e3/ulNormal0.00-0.03The [facility] CenterComment on above:Performed By: #### CBC #### [facility] [address] [place] [address] Dr. Haile OmalleyIG %0.3 %Normal0.0-0.5The [facility] CenterComment on above: Performed By: #### CBC #### [facility] [address] [place] [address] Dr. Haile HoldenH #1.5 103/ulNormal1.2-3.8The [facility] CenterComment on above:Performed By: #### CBC #### [facility] [address] [place] [address] Dr. Haile Menonmphocytes/100 WBC (Bld)22.1 %Jjeldf46.5-60.0The [facility] CenterComment on above:Performed By: #### CBC #### [facility] [address] [place] [address] Dr. Haile Goss DIFF REQNONormalThe [facility] CenterComment on above: Performed By: #### CBC #### [facility] [address] [place] [address] Dr. Haile Reese (RBC) [Entitic mass]33.0 nlRjeswb86.9-34.0The [facility] CenterComment on above:Performed By: #### CBC #### [facility] [address] [place] [address] Dr. Haile Reese (RBC) [Mass/Vol]33.8 g/xGPapmlj12.9-35.2The [facility] CenterComment on above:Performed By: #### CBC #### [facility] [address] [place] [address] Dr. Haile Reese (RBC) [Entitic vol]97.8 fLCritically high80.0-94.0The [facility] CenterComment on above:Performed By: #### CBC #### [facility] [address] [place] [address] Dr. Haile Varma #0.7 103/ulNormal0.3-0.8The [facility] North Health CenterComment on above:Performed By: #### CBC #### [facility] [address] [place] [address] Dr. Haile Littleocytes/100 WBC (Bld)10.6 %Normal1.7-12.0The [facility] Comment on above:Performed By: #### CBC #### [facility] [address] [place] [address] Dr. Haile Lau #4.6 103/ulNormal1.4-6.5The [facility] CenterComment on above:Performed By: #### CBC #### [facility] [address] [place] [address] Dr. Haile Baumanutrophils/100 WBC (Bld)65.7 %Oetjrg90.0-75.0The [facility] CenterComment on above:Performed By: #### CBC #### [facility] [address] [place] [address] Dr. Haile OmalleyPlatelet mean volume (Bld) [Entitic vol]10.5 fLNormal9.5-13.5The [facility] CenterComment on above:Performed By: #### CBC #### [facility] [address] [place] [address] Dr. Haile OmalleyPLT177 103/ydEgyhjj104-934Wof [facility] CenterComment on above: Performed By: #### CBC #### [facility] [address] [place] [address] Dr. Haile OmalleyRBC4.09 106/ulCritically low4.70-6.10The [facility] CenterComment on above:Performed By: #### CBC #### [facility] [address] [place] [address] Dr. Haile OmalleyWBC7.0 103/ulNormal4.0-11.0The [facility] CenterComment on above: Performed By: #### CBC #### [facility] [address] [place] [address] Dr. Haile OmalleyPROF CHEM 8 (BAS METB)on [id number] gap [Moles/Vol]6.9 mmol/LNormalThe [facility] CenterComment on above:Performed By: #### BMP #### [facility] [address] [place] [address] Dr. Haile OmalleyCalcium [Mass/Vol]9.0 mg/dLNormal8.5-10.1[facility] Comment on above:Performed By: #### BMP #### [facility] [address] [place] [address] Dr. Haile OmalleyChloride [Moles/Vol]99 mmol/FXwjiiu26-915Xkm [facility] Comment on above:Performed By: #### BMP #### [facility] [address] [place] [address] Dr. Haile OmalleyCO2 [Moles/Vol]35.8 mmol/LCritically high21.0-32.0The [facility] CenterComment on above:Performed By: #### BMP #### [facility] [address] [address] [address] Haile OmalleyCreatinine [Mass/Vol]1.09 mg/dLNormal0.70-1.30The [facility] CenterComment on above:Performed By: #### BMP #### [facility] [address] [address] [address] Be ChangEGFR-AF PRYDEINIG>60Normal>=60The [facility] CenterComment on above:Performed By: #### BMP #### [facility] [address] [address] [address] Haile RodriguezGFR-NON AF PRYDEINIG>60Normal>=60The [facility] CenterComment on above:Performed By: #### BMP #### [facility] [address] [address] [address] Haile OmalleyGlucose [Mass/Vol]114 mg/dLCritically cxbg91-514Pej [facility] CenterComment on above:Performed By: #### BMP #### [facility] [address] [address] [address] Haile OmalleyPotassium [Moles/Vol]3.7 mmol/LNormal3.5-5.1The [facility] Comment on above:Performed By: #### BMP #### [facility] [address] [address] [address] Haile OmalleySodium [Moles/Vol]138 mmol/XNncdxz551-041Fbk [facility] Comment on above:Performed By: #### BMP #### [facility] [address] [address] [address] Haile OmalleyUrea nitrogen [Mass/Vol]27.0 mg/dLCritically high7.0-18.0The [facility] CenterComment on above:Performed By: #### BMP #### [facility] [address] [address] [address] Haile OmalleyUrea nitrogen/Creatinine [Mass ratio]24.8 mg/mgNormalThe [facility] CenterComment on above:Performed By: #### BMP #### [facility] [address] [address] [address] Haile OmalleyMRI BRAIN WO CONon [id number] BRAIN WO CONEXAMINATION: MRI BRAIN WO CON, 12/27/2021 2:01 PM EDT HISTORY: [...] Electronically authenticated by: FRANKO JACOBS Date: 2021-12-27 18:17NoPremier Health Atrium Medical CenterMETHYLMALONIC ACID (MMA)on [id number] Acid, Serum 282 nmol/LNormal0-378The [facility] Hospitalment on above:Performed By: #### MMA2 #### [facility] [address] [address] [address] Haile OmalleyPROTEIN ELECTROPHERESISon 06-17-9667Fxrdtzo [Mass/Vol]4.0 g/dL Normal2.9-4.4The [facility] CenterComment on above:Performed By: #### CBC #### [facility] [address] [address] [address] Haile OmalleyAlbumin/Globulin [Mass ratio]1.5 {ratio}Normal0.7-1.7The [facility] CenterComment on above:Performed By: #### CBC #### [facility] [address] [address] [address] Haile OmalleyLmxwjHtiyw-8-Uaoitalj9.2 g/dLNormal0.0-0.4The [facility] HospitalComment on above:Performed By: #### CBC #### [facility] [address] [address] [address] Haile OmalleyHutxsJkiue-6-Sfrrjkoy9.8 g/dLNormal0.4-1.0The [facility] Hospitalment on above:Performed By: #### CBC #### [facility] [address] [address] [address] Haile OmalleyBeta Globulin1.0 g/dLNormal0.7-1.3The [facility] CenterComment on above:Performed By: #### CBC #### [facility] [address] [address] [address] Haile OmalleyGamma Globulin0.6 g/dLNormal0.4-1.8The [facility] on above:Performed By: #### CBC #### [facility] [address] [address] [address] Haile OmalleyGlobulin (S) [Mass/Vol]2.6 g/dLNormal2.2-3.9The [facility] Comment on above:Performed By: #### CBC #### [facility] [address] [address] [address] Haile lFynn-SpikeNot ObservedNormalNot ObservedMarietta Osteopathic Clinic on above:Performed By: #### CBC #### [facility] [address] [address] [address] Haile OmalleyPDKetty.NormalThe [facility] on above:Performed By: #### CBC #### [facility] [address] [address] [address] Haile OmalleyPlease note:CommentNormalThe [facility] on above: Result Comment: Protein electrophoresis scan will follow via computer, mail, or machinist automotive delivery.Performed By: #### CBC #### [facility] [address] [address] [address] Haile OmalleyProtein [Mass/Vol]6.6 g/dLNormal6.0-8.5ThCincinnati [facility]rin[facility] Comment on above:Performed By: #### CBC #### [facility] [address] [place] [address] Dr. Haile Sol [facility]ITALon [id number]-Centromere B Antibodies<0.4Sayviw6.0-0.9The [facility] CenterComment on above:Performed By: #### ANAPROF #### [facility] [address] [place] [address] Dr. aHile Hernandez-DNA (DS) Ab Qn1 IU/mLNormal0-9[facility] CenterComment on above:Result Comment: Negative <5 Equivocal 5 - 9 Positive >9Performed By: #### ANAPROF #### [facility] [address] [place] [address] Dr. Haile RobertsJo-1<0.7Hlbsjm1.0-0.9[facility] on above: Performed By: #### ANAPROF #### [facility] [address] [place] [address] Dr. Haile Goodehromatin Antibodies<0.6Spyvui3.0-0.9[facility] Comment on above:Performed By: #### ANAPROF #### [facility] [address] [place] [address] Dr. Haile HernandezRIBOSOMAL P AB<0.2Jekony9.0-0.9The [facility] CenterComhavenwyck hospital on above:Performed By: #### ANAPROF #### [facility] [address] [place] [address] Dr. Haile Swansonoderma-70 Antibodies<0.5Vemytv1.0-0.9[facility] CenterComment on above:Performed By: #### ANAPROF #### [facility] [address] [place] [address] Dr. Haile VelaLicking Memorial HospitalComment on above:Result Comment: Autoantibody Disease Association Condition Frequency Antinuclear Antibody, SLE, mixed connective Direct (GILDA-D) tissue diseases dsDNA SLE 40 - 60% Chromatin Drug induced SLE 90% SLE 48 - 97% SSA (Ro) SLE 25 - 35% Sjogren's Syndrome 40 - 70% Lupus 100% SSB (La) SLE 10% Sjogren's Syndrome 30% Sm (anti-Ramirez) SLE 15 - 30% [employer] Mixed Connective Tissue Disease 95% (U1 nRNP, SLE 30 - 50% anti-ribonucleoprotein) Polymyositis and/or Dermatomyositis 20% Scl-70 (antiDNA Scleroderma (diffuse) 20 - 35% topoisomerase) Crest 13% Avani-1 Polymyositis and/or Dermatomyositis 20 - 40% Centromere B Scleroderma - Crest variant 80% Ribosomal P SLE 10 - 20%Performed By: #### ANAPROF #### [facility] [address] [place] [address] Dr. Haile Rosario Antibodies<0.0Gqomoz6.0-0.9[facility] CenterComment on above:Performed By: #### ANAPROF #### [facility] [address] [place] [address] Dr. Haile Lake Anti-SS-A<0.9Vohjmb9.0-0.9The [facility] CenterComment on above:Performed By: #### ANAPROF #### [facility] [address] [place] [address] Dr. Haile Lake Anti-SS-B<0.0Epvogt2.0-0.9The [facility] CenterComment on above:Performed By: #### ANAPROF #### [facility] [address] [place] [address] Dr. Haile Moore Antibodies<0.9Wsjggv1.0-0.9The [facility] on above:Performed By: #### ANAPROF #### [facility] [address] [place] [address] Dr. Haile Moore/[employer] Antibodies<0.9Hyvziy3.0-0.9The [facility] Hospitalment on above:Performed By: #### ANAPROF #### [facility] [address] [place] [address] Dr. Haile OmalleyCRFigueroa 88-23-5019KAR [Mass/Vol]mg/LNormal<=1.0The [facility] on above:Performed By: #### CBC #### [facility] [address] [place] [address] Dr. Haile OmalleyGLYCOHEMOGLOBIN A1Con [id number] RECOMMENDATIONSEE BELOWNormal The [facility] CenterComhavenwyck hospital on above:Result Comment: ADA RECOMMENDED LIMIT 4.0 - 6.0 ADA THERAPEUTIC TARGET < 7.0 ACTION SUGGESTED > 7.0Performed By: #### A1C #### [facility] [address] [place] [address] Dr. Haile OmalleyGlucose [Mass/Vol]105 mg/dLNormalThe [facility] on above:Performed By: #### A1C #### [facility] [address] [place] [address] Dr. Haile OmalleyHbA1c (Bld) [Mass fraction]5.3 %Normal4.5-6.2The [facility] on above:Performed By: #### A1C #### [facility] [address] [place] [address] Dr. Haile Patterson 14(COMP METB)on [id number] [Mass/Vol]4.0 g/dLNormal 3.4-5.0The [facility] on above:Performed By: #### TSH, CRP, CMP #### [facility] [address] [place] [address] Dr. Haile OmalleyAlbumin/Globulin [Mass ratio]1.3 {ratio}NormalThe [facility] CenterComment on above:Performed By: #### TSH, CRP, CMP #### [facility] [address] [address] [address] Haile Blanco [Catalytic activity/Vol]172 U/LCritically tomm12-500Gsv [facility] CenterComment on above:Performed By: #### TSH, CRP, CMP #### [facility] [address] [place] [address] Dr. Haile Estevez [Catalytic activity/Vol]25 U/MAersnl21-95Jyi [facility] CenterComment on above:Performed By: #### TSH, CRP, CMP #### [facility] [address] [place] [address] Dr. Haile Lizama gap [Moles/Vol]13.1 mmol/LNormalThe [facility] Comment on above:Performed By: #### TSH, CRP, CMP #### [facility] [address] [place] [address] Dr. Haile Payne [Catalytic activity/Vol]21 U/MUlwhho95-23Dus [facility] CenterComment on above:Performed By: #### TSH, CRP, CMP #### [facility] [address] [place] [address] Dr. Haile OmalleyBilirubin [Mass/Vol]0.8 mg/dLNormal0.2-1.0[facility] Comment on above:Performed By: #### TSH, CRP, CMP #### [facility] [address] [place] [address] Dr. Haile OmalleyCalcium [Mass/Vol]9.5 mg/dLNormal8.5-10.1[facility] Comment on above:Performed By: #### TSH, CRP, CMP #### [facility] [address] [place] [address] Dr. Haile OmalleyChloride [Moles/Vol]104 mmol/BXnsyzh83-968Ghs [facility] Comment on above:Performed By: #### TSH, CRP, CMP #### [facility] [address] [place] [address] Dr. Haile OmalleyCO2 [Moles/Vol]31.5 mmol/ZTpemfc51.0-32.0The [facility] Comment on above:Performed By: #### TSH, CRP, CMP #### [facility] [address] [place] [address] Dr. Haile OmalleyCreatinine [Mass/Vol]1.14 mg/dLNormal0.70-1.30The [facility] CenterComment on above:Performed By: #### TSH, CRP, CMP #### [facility] [address] [place] [address] Dr. Haile RodriguezGFR-AF PRYDEINIG>60Normal>=60The [facility] CenterComment on above:Performed By: #### TSH, CRP, CMP #### [facility] [address] [place] [address] Dr. Haile RodriguezGFR-NON AF PRYDEINIG>60Normal>=60The [facility] CenterComment on above:Performed By: #### TSH, CRP, CMP #### [facility] [address] [place] [address] Dr. Haile OmalleyGlobulin (S) [Mass/Vol]3.1 g/dLNormalThe [facility] CenterComment on above:Performed By: #### TSH, CRP, CMP #### [facility] [address] [place] [address] Dr. Haile OmalleyGlucose [Mass/Vol]106 mg/ySJuxbds99-319Ewe [facility] Comment on above:Performed By: #### TSH, CRP, CMP #### [facility] [address] [place] [address] Dr. Haile OmalleyPotassium [Moles/Vol]4.6 mmol/LNormal3.5-5.1The [facility] Comment on above:Performed By: #### TSH, CRP, CMP #### [facility] [address] [place] [address] Dr. Haile OmalleyProtein [Mass/Vol]7.1 g/dLNormal6.4-8.2The [facility] Comment on above:Performed By: #### TSH, CRP, CMP #### [facility] [address] [place] [address] Dr. Haile Hanleydium [Moles/Vol]144 mmol/JCeyciu511-396Ftb [facility] Comment on above:Performed By: #### TSH, CRP, CMP #### [facility] [address] [place] [address] Dr. Haile Don nitrogen [Mass/Vol]30.0 mg/dLCritically high7.0-18.0The [facility] CenterComment on above:Performed By: #### TSH, CRP, CMP #### [facility] [address] [place] [address] Dr. Haile Don nitrogen/Creatinine [Mass ratio]26.3 mg/mgNoPremier Health Atrium Medical CenterComment on above:Performed By: #### TSH, CRP, CMP #### [facility] [address] [place] [address] Dr. Haile Recinos RATE WESTERGRENon 47-99-0245JKI RATE4 mm/hrNormal<=20The [facility] CenterComment on above:Performed By: #### SEDR #### [facility] [address] [place] [address] Dr. Haile Ramos 84-63-0511LKR3.097 uIU/mLNormal0.358-3.740The [facility] CenterComment on above:Performed By: #### TSH, CRP, CMP #### [facility] [address] [place] [address] Dr. Haile Kingsley RANGESEE BELOWNoPremier Health Atrium Medical CenterComment on above: Result Comment: <0.34 UIU/ml HYPERTHYROID 0.34-5.60 UIU/ml EUTHYROID >5.60 UIU/ml HYPOTHYROIDPerformed By: #### TSH, CRP, CMP #### [facility] [address] [place] [address] Dr. Haile Parmar B12 AND FOLATEon 89-66-9546Riwmorwbp (Vitamin B12) [Mass/Vol] 470.0 pg/lUVkitku211.0-986.0The [facility] CenterComment on above:Performed By: #### B12FOL #### [facility] [address], [place] [address] Dr. Haile OmalleyFOLATE15.50 ng/mLNormal8.60-58.90The [facility] CenterComhavenwyck hospital on above:Performed By: #### B12FOL #### [facility] [address], [place] [address] Dr. Haile Omalley Vital Signs Date TimeVital SignValuePerforming KswpnshxfRpoejzia63-91-3201 09:59-0400Body .7 cmUlises Goetz Jr., MD Work Phone: [facility]09-12-2025 09:59-0400Body mass index (BMI) [Ratio]22.05 kg/x0SueqcoUlises Goetz Jr., MD Work Phone: [facility]09-12-2025 09:59-0400Body lrgyog25.77 kgUlises Goetz Jr., MD Work Phone: [facility]09-12-2025 09:59-0400Diastolic blood safuluhl96 mm[Hg]Ulises Goetz Jr., MD Work Phone: [facility]09-12-2025 09:59-0400Heart rate 84 /minUlises Goetz Jr., MD Work Phone: [facility]09-12-2025 09:59-0400Systolic blood gpssotvf162 mm[Hg]Ulises Goetz Jr., MD Work Phone: [facility]08-18-2025 13:45-0400Body evawgw325.72 cmBenjamin Ball DO Work Phone: [facility]08-18-2025 13:45-0400 Body mass index (BMI) [Ratio]21.7 kg/k3Kdydfffx Ball DO Work Phone: [facility]08-18-2025 13:45-0400 Body .86 kgBenjamin Ball DO Work Phone: [phone] [place], [place] 9457808-18-2025 13:45-0400 Diastolic blood hufrqyyl58 mm[Hg]Cameron Ball DO Work Phone: [phone] [place], [place] 9457808-18-2025 13:45-0400 Heart rate90 /minBenjamin Ball DO Work Phone: [phone] [place], [place] 9457808-18-2025 13:45-0400 Respiratory rate12 /minBenjamin Ball DO Work Phone: [phone] [place], [place] 9457808-18-2025 13:45-0400 Systolic blood kfhseqiu335 mm[Hg]Cameron Ball DO Work Phone: [phone] [place], [place] 9457805-22-2025 11:17-0400 Body qvexpy700.72 cmBenjamin Ball DO Work Phone: [phone] [place], [place] 9457805-22-2025 11:17-0400 Body mass index (BMI) [Ratio]22.9 kg/p3Wabfbgyd Ball DO Work Phone: [phone] [place], [place] 9457805-22-2025 11:17-0400 Body kylbdm21.5 kgBenjamin Ball DO Work Phone: [phone] [place], [place] 9457805-09-2025 08:30-0400 Diastolic blood gxauakan56 mm[Hg]Cameron Ball DO Work Phone: [phone] [place], [place] 9457805-09-2025 08:30-0400 Heart rate71 /minBenjamin Ball DO Work Phone: [phone] [place], [place] 9457805-09-2025 08:30-0400 Respiratory rate20 /minBenjamin Ball DO Work Phone: [phone] [place], [place] 9457805-09-2025 08:30-0400 SaO2% (BldA) [Mass fraction]97 %Cameron Ball DO Work Phone: [phone] [place], [place] 9457805-09-2025 08:30-0400 Systolic blood hoobecrb062 mm[Hg]Cameron Ball DO Work Phone: [facility]05-09-2025 07:58-0400 Body yshzffroxrz24.5 [degF]Cameron Ball DO Work Phone: [phone]05-09-2025 07:58-0400 Inhaled oxygen flow rate6 L/minBenjamin Ball DO Work Phone: [phone]05-09-2025 06:21-0400 Body pamycs665.18 cmBenjamin Ball DO Work Phone: [phone]05-09-2025 06:21-0400 Body prampn37.64 kgBenjamin Ball DO Work Phone: [phone]04-17-2025 10:31-0400 Diastolic blood zomgglvg38 mm[Hg]Cameron Ball DO Work Phone: [phone]04-17-2025 10:31-0400 Respiratory rate18 /minBenjamin Ball DO Work Phone: [phone]04-17-2025 10:31-0400 Systolic blood vovxlmsd308 mm[Hg]Cameron Ball DO Work Phone: [phone]04-15-2025 15:23-0400 Body emswkf160.18 cmAdena [facility] Medical Center04-15-2025 15:23-0400Body mass index (BMI) [Ratio]23 kg/p2FilgsaxcwAdena Regional Medical Center04-15-2025 15:23-0400Body bbyqdw17.67 kgAdena Regional Medical Center04-15-2025 15:23-0400Diastolic blood loiciqrj85 mm[Hg][facility] 11-11-2024 15:23-0400Heart rate73 /[facility] 11-11-2024 15:23-0400Respiratory rate12 /[facility] 11-11-2024 15:23-0400Systolic blood tmehnsgb803 mm[Hg][facility]04-11-2025 09:41-0400Body gbwcyb116.7 cmGregor Sofy Jr., MD Work Phone: [facility]04-11-2025 09:41-0400Body mass index (BMI) [Ratio]24.33 kg/p5HamvvbUlises Goetz Jr., MD Work Phone: [facility]04-11-2025 09:41-0400Body ieqkht14.58 kgUlises Goetz Jr., MD Work Phone: [facility]04-11-2025 09:41-0400Diastolic blood kupokwfm60 mm[Hg]Ulises Goetz Jr., MD Work Phone: [facility]04-11-2025 09:41-0400Heart rate 87 /minUlises Goetz Jr., MD Work Phone: [facility]04-11-2025 09:41-0400Systolic blood mm[Hg]Ulises Goetz Jr., MD Work Phone: [facility]03-21-2025 13:31-0400Body .18 cmA[facility]a [facility] Center03-21-2025 13:31-0400Body mass index (BMI) [Ratio]23 kg/j1IsyocmizcAdena Regional Medical Center03-21-2025 13:31-0400Body .67 kgAdena Regional Medical Center03-21-2025 13:31-0400Diastolic blood kfmlzwhy38 mm[Hg][facility] 10-17-2024 13:31-0400Heart rate76 /[facility] 10-17-2024 13:31-0400Respiratory rate12 /[facility] 10-17-2024 13:31-0400Systolic blood nyqrhdbv507 mm[Hg][facility]01-27-2025 14:07-0500Body .18 cmBenjamin Ball DO Work Phone: [facility]01-27-2025 14:07-0500 Body mass index (BMI) [Ratio]23.1 kg/h3Sqoueptl Ball DO Work Phone: [phone] [place], [place] 9457801-27-2025 14:07-0500 Body bbxmil84.79 kgBenjamin Ball DO Work Phone: [phone] [place], [place] 9457801-27-2025 14:07-0500 Diastolic blood mteupbmv11 mm[Hg]Cameron Ball DO Work Phone: [phone] [place], [place] 9457801-27-2025 14:07-0500 Heart rate82 /minBenjamin Ball DO Work Phone: [phone] [place], [place] 9457801-27-2025 14:07-0500 Respiratory rate12 /minBenjamin Ball DO Work Phone: [phone] [place], [place] 9457801-27-2025 14:07-0500 Systolic blood mrwrtlur359 mm[Hg]Cameron Ball DO Work Phone: [phone] [place], [place] 9457812-16-2024 14:48-0500 Body adzzmd688.18 cmBenjamin Ball DO Work Phone: [phone] [place], [place] 9457812-16-2024 14:48-0500 Body mass index (BMI) [Ratio]23.2 kg/y8Pwdsuaaz Ball DO Work Phone: [phone])[address] [place], [place] 9457812-16-2024 14:48-0500 Body bxlhso31.3 kgBenjamin Ball DO Work Phone: [phone] [place], [place] 9457812-16-2024 14:48-0500 Diastolic blood rjjmuetu44 mm[Hg]Cameron Ball DO Work Phone: [phone] [place], [place] 9457812-16-2024 14:48-0500 Heart rate81 /minBenjamin Ball DO Work Phone: [phone] [place], [place] 9457812-16-2024 14:48-0500 Respiratory rate12 /minBenjamin Ball DO Work Phone: [phone] [place], [place] 9457812-16-2024 14:48-0500 Systolic blood fiwbomif643 mm[Hg]Cameron Ball DO Work Phone: [facility]11-22-2024 09:07-0500 Body eprztj603.7 cmUlises Goetz Jr., MD Work Phone: [facility]11-22-2024 09:07-0500Body mass index (BMI) [Ratio]24.33 kg/p5YxrrwiUlises Goetz Jr., MD Work Phone: [facility]11-22-2024 09:07-0500Body qeqott60.58 kgUlises Goetz Jr., MD Work Phone: [facility]11-22-2024 09:07-0500Diastolic blood mm[Hg]Ulises Goetz Jr., MD Work Phone: [facility]11-22-2024 09:07-0500Heart rate 72 /minUlises Goetz Jr., MD Work Phone: [facility]11-22-2024 09:07-0500Systolic blood ietwtvio365 mm[Hg]Ulises Goetz Jr., MD Work Phone: [facility]11-14-2024 15:10-0500Diastolic blood xkxkrnlu64 mm[Hg]Cameron Ball DO Work Phone: [facility]11-14-2024 15:10-0500 Heart rate60 /minBenjamin Ball DO Work Phone: [facility]11-14-2024 15:10-0500 Respiratory rate16 /minBenjamin Ball DO Work Phone: [facility]11-14-2024 15:10-0500 SaO2% (BldA) [Mass fraction]97 %Cameron Ball DO Work Phone: [facility]11-14-2024 15:10-0500 Systolic blood qqalmsrp407 mm[Hg]Cameron Ball DO Work Phone: 1(419)[address] [place], [place] 9457811-14-2024 13:41-0500 Body ykjmfp063.18 cmBenjamin Ball DO Work Phone: 1(821)[address] [place], [place] 9457811-14-2024 13:41-0500 Body afskoc13.5 kgBenjamin Ball DO Work Phone: 1(381)[address] [place], [place] 9457810-23-2024 11:45-0400 Body kqdlok154.18 cmDO Cameron Ball Work Phone: 1(317)[address] [place], [place] 9457810-23-2024 11:45-0400 Body mass index (BMI) [Ratio]22.6 kg/m2DO Cameron Ball Work Phone: 1(081)[address] [place], [place] 9457810-23-2024 11:45-0400 Body ipqnsw10.43 kgDO Cameron Ball Work Phone: 1(110)[address] [place], [place] 9457810-23-2024 11:45-0400 Diastolic blood orwmhkyl69 mm[Hg]DO Cameron Ball Work Phone: 1(584)[address] [place], [place] 9457810-23-2024 11:45-0400 Heart rate76 /minDO Cameron Ball Work Phone: 1(111)[address] [place], [place] 9457810-23-2024 11:45-0400 Respiratory rate12 /minDO Cameron Ball Work Phone: 1(816)[address] [place], [place] 9457810-23-2024 11:45-0400 Systolic blood oqvnedlf210 mm[Hg]DO Cameron Ball Work Phone: 1(752)[address] [place], [place] 9457810-15-2024 10:49-0400 Body dcvofr877.2 cmAlexander Damon MD Work Phone: [facility] ChildrenVjoyptddlw43-47-1226 10:49-0400Body mass index (BMI) [Ratio]23.02 kg/p6WnsvzhAlexander Damon MD Work Phone: [facility] ChildrenLjipkeevlq68-60-7389 10:49-0400Body nacrjm96.68 kgAlexander Damon MD Work Phone: [facility] ChildrenAenxnvcylh42-20-6682 10:49-0400Diastolic blood sqkqfoyx46 mm[Hg]Alexander Damon MD Work Phone: [facility] ChildrenZrmumbitqz68-02-5689 10:49-0400Systolic blood zfyuykmr324 mm[Hg]Alexander Damon MD Work Phone: [facility] ChildrenYsrszvmzgp37-18-1213 08:29-0400Body vuextj537.7 cmUlises Goetz Jr., MD Work Phone: [facility]10-11-2024 08:29-0400Body mass index (BMI) [Ratio]24.33 kg/j6JmfsrxUlises Goetz Jr., MD Work Phone: 1(398)497-05[facility]10-11-2024 08:29-0400Body tmeibg82.58 kgUlises Goetz Jr., MD Work Phone: [facility]10-11-2024 08:29-0400Diastolic blood mm[Hg]Ulises Goetz Jr., MD Work Phone: [facility]10-11-2024 08:29-0400Heart rate 66 /minUlises Goetz Jr., MD Work Phone: [facility]10-11-2024 08:29-0400Systolic blood bboobvfa847 mm[Hg]Ulises Goetz Jr., MD Work Phone: [facility]09-26-2024 14:38-0400Body .7 cmUlises Goetz Jr., MD Work Phone: [facility]09-26-2024 14:38-0400Body mass index (BMI) [Ratio]24.33 kg/g9YfxdpgUlises Goetz Jr., MD Work Phone: [facility]09-26-2024 14:38-0400Body qroggo12.58 kgUlises Goetz Jr., MD Work Phone: [facility]09-26-2024 14:38-0400Diastolic blood yxyitdfy40 mm[Hg]Ulises Goetz Jr., MD Work Phone: [facility]09-26-2024 14:38-0400Heart rate 70 /minUlises Goetz Jr., MD Work Phone: [facility]09-26-2024 14:38-0400Systolic blood hlteoxgb195 mm[Hg]Ulises Goetz Jr., MD Work Phone: [facility]09-20-2024 14:55-0400Body qvqmyn334.18 cmDO Cameron Ball Work Phone: 1(234)600-43[facility]09-20-2024 14:55-0400 Body mass index (BMI) [Ratio]22.6 kg/m2DO Cameron Ball Work Phone: 1(026)674[facility]89[facility]09-20-2024 14:55-0400 Body zkddsa82.48 kgDO Cameron Ball Work Phone: 1(327)751-10[facility]09-20-2024 14:55-0400 Diastolic blood ywjdqqpi31 mm[Hg]DO Cameron Ball Work Phone: 1(047)972-72[facility]09-20-2024 14:55-0400 Heart rate88 /minDO Cameron Ball Work Phone: 1(678)439-35[facility]09-20-2024 14:55-0400 Respiratory rate12 /minDO Cameron Ball Work Phone: 1(928)727-78[facility]09-20-2024 14:55-0400 Systolic blood sybvzsox29 mm[Hg]DO Cameron Ball Work Phone: 1(862)934-75[facility]09-16-2024 17:56-0400 Diastolic blood tciormyi84 mm[Hg]DO Cameron Ball Work Phone: 1(611)262-55[facility]09-16-2024 17:56-0400 Heart rate65 /minDO Cameron Ball Work Phone: 1(098)657-83[facility]09-16-2024 17:56-0400 Respiratory rate16 /minDO Cameron Ball Work Phone: [facility]09-16-2024 17:56-0400 SaO2% (BldA) [Mass fraction]98 %DO Cameron [employer] Work Phone: [facility]09-16-2024 17:56-0400 Systolic blood awpqogdd761 mm[Hg]DO Cameron [employer] Work Phone: [facility]09-16-2024 15:17-0400 Body lounlkpxaho78.5 [degF]DO Cameron [employer] Work Phone: 1(389)087-47[facility]09-16-2024 13:23-0400 Body khulrg088.18 cmDO Cameron [employer] Work Phone: [facility]09-16-2024 13:23-0400 Body ryiiem01.23 kgDO Cameron [employer] Work Phone: [facility]08-30-2024 12:13-0400 Body fzvgfa467.42 cmA[facility]08-30-2024 12:13-0400Body mass index (BMI) [Ratio]20 kg/h0QxbzsamukAdena Regional Medical Center08-30-2024 12:13-0400Body lzxfym44.11 kgA[facility]08-30-2024 12:13-0400Diastolic blood bbckkixp91 mm[Hg][facility] 03-28-2024 12:13-0400Heart rate76 /[facility] 03-28-2024 12:13-0400Respiratory rate12 /[facility] 03-28-2024 12:13-0400Systolic blood yehkjzny258 mm[Hg][facility]06-14-2024 14:15-0400Body agkhxw332.42 cmDO RMI Work Phone: [facility]06-14-2024 14:15-0400 Body mass index (BMI) [Ratio]22.1 kg/m2DO RMI Work Phone: [facility]06-14-2024 14:15-0400 Body znaqmb12.97 kgDO Cameron Ball Work Phone: 1(830)611-69[facility]06-14-2024 14:15-0400 Diastolic blood dgsambwe01 mm[Hg]DO Cameron Ball Work Phone: 1(460)093-16[facility]06-14-2024 14:15-0400 Heart rate66 /minDO Cameron Ball Work Phone: 1(390)010-[address] [place], [place] 2413206-14-2024 14:15-0400 Respiratory rate12 /minDO Cameron Ball Work Phone: 1(150)813-[address] [place], [place] 2413206-14-2024 14:15-0400 Systolic blood negabtfz647 mm[Hg]DO Cameron Ball Work Phone: 1(058)[address]05-09-2024 10:28-0400 Body .42 cmDO Cameron Ball Work Phone: 1(120)[address]05-09-2024 10:28-0400 Body mass index (BMI) [Ratio]21.5 kg/m2DO Cameron Ball Work Phone: 1(499)[address]05-09-2024 10:28-0400 Body ecuxjh03.99 kgDO Cameron Ball Work Phone: 1(378)[address]05-09-2024 10:28-0400 Diastolic blood uiyzzzsc75 mm[Hg]DO Cameron Ball Work Phone: 1(088)[address]05-09-2024 10:28-0400 Heart rate77 /minDO Cameron Ball Work Phone: 1(132)268-[address] [place], [place] 2413205-09-2024 10:28-0400 Respiratory rate12 /minDO Cameron Ball Work Phone: 1(350)602-[address] [place], [place] 2413205-09-2024 10:28-0400 Systolic blood txelctcy749 mm[Hg]DO Cameron Ball Work Phone: 1(347)[address]05-04-2024 12:00-0400 Body aesvgsjidmg62.6 [degF]DO Cameron Ball Work Phone: 1(642)057-[address] [place], [place] 2413205-04-2024 12:00-0400 Diastolic blood onpezcjc12 mm[Hg]DO Cameron Ball Work Phone: 1(158)590-[address] [place], [place] 2413205-04-2024 12:00-0400 Heart rate64 /minDO Cameron Ball Work Phone: 1(664)[address]05-04-2024 12:00-0400 Respiratory rate16 /minDO Cameron Ball Work Phone: 1(663)[address] [place], [place] 9457805-04-2024 12:00-0400 SaO2% (BldA) [Mass fraction]95 %DO Acmeron Ball Work Phone: 1(587)[address]05-04-2024 12:00-0400 Systolic blood zytjjuyp704 mm[Hg]DO Cameron Ball Work Phone: 1(602)[address] [place], [place] 9457805-04-2024 06:00-0400 Body kgDO Cameron Ball Work Phone: 1(926)[address] [place], [place] 9457805-02-2024 14:14-0400 Body .72 cmDO Cameron Ball Work Phone: 1(535)[address] [place], [place] 9457804-17-2024 11:22-0400 Diastolic blood pkifimtz68 mm[Hg]DO Cameron Ball Work Phone: 1(064)[address] [place], [place] 9457804-17-2024 11:22-0400 Heart rate70 /minDO Cameron Ball Work Phone: 1(098)[address] [place], [place] 9457804-17-2024 11:22-0400 Respiratory rate16 /minDO Cameron Ball Work Phone: 1(115)526-[address] [place], [place] 2413204-17-2024 11:22-0400 SaO2% (BldA) [Mass fraction]95 %DO Cameron Ball Work Phone: 1(627)[address] [place], [place] 9457804-17-2024 11:22-0400 Systolic blood rmbxihfw346 mm[Hg]DO Cameron Ball Work Phone: 1(326)[address] [place], [place] 9457804-17-2024 09:55-0400 Body .72 cmDO Cameron Ball Work Phone: 1(467)[address] [place], [place] 9457804-17-2024 09:55-0400 Body mass index (BMI) [Ratio]25.6 kg/m2DO Cameron Ball Work Phone: 1(121)[address] [place], [place] 9457804-17-2024 09:55-0400 Body pjiliw96.5 kgDO Cameron Ball Work Phone: 1(350)[address] [place], [place] 9457804-17-2024 09:11-0400 Body kpcrljjnakt20.1 [degF]DO Cameron Ball Work Phone: 1(425)[address] [place], [place] 9457803-27-2024 11:28-0400 Body ackxdr875.72 cmDO Cameron Ball Work Phone: 1(557)[address] [place], [place] 9457803-27-2024 11:28-0400 Body mass index (BMI) [Ratio]24.9 kg/m2DO Cameron Ball Work Phone: 1(671)[address] [place], [place] 9457803-27-2024 11:28-0400 Body .38 kgDO Cameron Ball Work Phone: 1(378)[address] [place], [place] 9457803-27-2024 11:28-0400 Diastolic blood ucykydzd89 mm[Hg]DO Cameron Ball Work Phone: 1(392)[address] [place], [place] 9457803-27-2024 11:28-0400 Heart rate73 /minDO Cameron Ball Work Phone: 1(460)[address] [place], [place] 9457803-27-2024 11:28-0400 Respiratory rate18 /minDO Cameron Ball Work Phone: 1(949)[address] [place], [place] 9457803-27-2024 11:28-0400 SaO2% (BldA) [Mass fraction]96 %DO Cameron Ball Work Phone: 1(595)[address] [place], [place] 9457803-27-2024 11:28-0400 Systolic blood mm[Hg]DO Cameron Ball Work Phone: 1(199)[address] [place], [place] 9457803-21-2024 11:08-0400 Body xygdcn230.72 cmDO Cameron Ball Work Phone: 1(929)[address] [place], [place] 9457803-21-2024 11:08-0400 Body mass index (BMI) [Ratio]26.1 kg/m2DO Cameron Ball Work Phone: 1(021)281-71[facility]03-21-2024 11:08-0400 Body yivgez48.01 kgDO Cameron Ball Work Phone: 1(727)[address]03-13-2024 11:07-0400 Body kneixf726.72 cmDO Cameron Ball Work Phone: 1(305)[address]03-13-2024 11:07-0400 Body mass index (BMI) [Ratio]26.1 kg/m2DO Cameron Ball Work Phone: 1(306)[address]03-13-2024 11:07-0400 Body ujnfkp22.01 kgDO Cameron Ball Work Phone: 1(929)[address]02-28-2024 10:58-0500 Body rxsotb451.72 cmDO Cameron Ball Work Phone: 1(278)[address]02-28-2024 10:58-0500 Body mass index (BMI) [Ratio]25.6 kg/m2DO Cameron Ball Work Phone: 1(984)[address] [place], [place] 9457802-28-2024 10:58-0500 Body .37 kgDO Cameron Ball Work Phone: 1(445)[address]02-28-2024 10:58-0500 Diastolic blood jowftjcj59 mm[Hg]DO Cameron Ball Work Phone: 1(881)634-[address] [place], [place] 2413202-28-2024 10:58-0500 Heart rate72 /minDO Cameron Ball Work Phone: 1(379)789-[address] [place], [place] 2413202-28-2024 10:58-0500 Systolic blood jvwjbweu362 mm[Hg]DO Cameron Ball Work Phone: 1(873)710-10[facility]12-13-2023 13:30-0500 Body uznmag308.72 cmBenjamin Ball Other [employer] Other 772410-04-5784 13:30-0500Body mass index (BMI) [Ratio] 25.91 kg/i3Wtofnxyr Ball Other [employer] Other 12-13-2023 13:30-0500Body gejqtz50.29 kgBenjamin Ball Other [employer] Other 12-13-2023 13:30-0500Diastolic blood bvudsdvx31 mm[Hg] Cameron Ball Other [employer] Other 12-13-2023 13:30-0500Respiratory rate12 /minBenjamin Ball Other [employer] Other 12-13-2023 13:30-0500Systolic blood qxcmantr708 mm[Hg] Cameron Ball Other [employer] Other 2023 13:30-0400Body ehcqvb675.72 cmBenjamin Ball Other [employer] Other 2023 13:30-0400Body mass index (BMI) [Ratio] 25.39 kg/s4Xdwsdadn Ball Other [employer] Other 2023 13:30-0400Body qqouxy78.75 kgBenjamin Ball Other [employer] Other 2023 13:30-0400Diastolic blood grcqygsq86 mm[Hg] Cameron Ball Other [employer] Other 2023 13:30-0400Systolic blood sjavizdq741 mm[Hg] Cameron Ball Other [employer] Other 07-31-2023 10:24-0400Diastolic blood kgmdtuqa73 mm[Hg] DO Cameron Ball Work Phone: [facility]07-31-2023 10:24-0400 Heart rate75 /minDO Cameron Ball Work Phone: [facility]07-31-2023 10:24-0400 Respiratory rate18 /minDO Cameron Ball Work Phone: 1(656)203-94[facility]07-31-2023 10:24-0400 SaO2% (BldA) [Mass fraction]98 %DO Cameron Ball Work Phone: 1(859)571-76[facility]07-31-2023 10:24-0400 Systolic blood sanmsdgj493 mm[Hg]DO Cameron Ball Work Phone: 1(560)944-84[facility]07-31-2023 08:17-0400 Body .72 cmDO Cameron Ball Work Phone: 1(870)001-46[facility]07-31-2023 08:17-0400 Body mxfcid95.57 kgDO Cameron Ball Work Phone: 1(954)747-79[facility]07-18-2023 09:30-0400 Body ugfhgv066.72 cmBenjamin Ball Other [employer] Other 07-18-2023 09:30-0400Body mass index (BMI) [Ratio] 24.78 kg/v7Mkxsxqrp Ball Other [employer] Other 07-18-2023 09:30-0400Body telrme20.94 kgBenjamin Ball Other [employer] Other 07-18-2023 09:30-0400Diastolic blood zokeuarc51 mm[Hg] Cameron Ball Other [employer] Other 07-18-2023 09:30-0400Respiratory rate12 /minBenjamin Ball Other [employer] Other 07-18-2023 09:30-0400Systolic blood pnbihgtq368 mm[Hg] Cameron Ball Other [employer] Other 06-06-2023 14:00-0400Body otzrph898.72 cmBenjamin Ball Other [employer] Other 06-06-2023 14:00-0400Body mass index (BMI) [Ratio] 25.48 kg/r0Fkclaiwd Ball Other [employer] Other 06-06-2023 14:00-0400Body .02 kgBenjamin Ball Other [employer] Other 06-06-2023 14:00-0400Diastolic blood mm[Hg] Cameron Ball Other [employer] Other 06-06-2023 14:00-0400Respiratory rate12 /minBenjamin Ball Other [employer] Other 06-06-2023 14:00-0400Systolic blood ujeramyo193 mm[Hg] Cameron Ball Other [employer] Other 04-05-2023 15:45-0400Body cexyia709.72 cmBenjamin Ball Other [employer] Other 04-05-2023 15:45-0400Body mass index (BMI) [Ratio] 25.91 kg/b8Wopypfyk Ball Other [employer] Other 04-05-2023 15:45-0400Body kzjouh00.29 kgBenjamin Ball Other [employer] Other 04-05-2023 15:45-0400Diastolic blood dwneveix20 mm[Hg] Cameron Ball Other [employer] Other 04-05-2023 15:45-0400Respiratory rate16 /minBenjamin Ball Other [employer] Other 04-05-2023 15:45-0400Systolic blood kqucsbho750 mm[Hg] Cameron Ball Other [employer] Other 01-31-2022 15:00-0500Body pjcwco350.72 cmDaniel Elskens Other [employer] Other 01-31-2022 15:00-0500Body mass index (BMI) [Ratio] 28.28 kg/u5Pzzjjl Elskens Other [employer] Other 01-31-2022 15:00-0500Body cceueq95.37 kgDaniel Elskens Other [employer] Other 01-05-2022 09:30-0500Body .72 cmDaniel Elskens Other [employer] Other 01-05-2022 09:30-0500Body mass index (BMI) [Ratio] 28.28 kg/e1Ihowqs Elskens Other [employer] Other 01-05-2022 09:30-0500Body wijadx68.37 kgDaniel Elskens Other [employer] Other Encounters Encounter DateEncounter TypeCare ProviderFacilityStart: 04-22-2025 End: 29-21-8728pzmidnunqcPcppjlgxKathy MONROE Work Phone: [facility] Genito-Urinary SurgeonsComment on above:Benign prostatic hyperplasia with urinary hesitancy (Primary Dx)Start: 04-10-2025 End: 29-09-4842Yotbsx outpatient visit 25 minutesUlises Goetz MD Work Phone: [facility] Genito-Urinary SurgeonsComment on above:Urologic disorders (Primary Dx); Benign prostatic hyperplasia with urinary hesitancy; Elevated PSAStart: 04-10-2025 End: 35-43-0694vxwgswogarTRGPVW [facility] Start: 03-23-2025 End: 77-10-3866azigphbzxnBtdmecdAlbaro Walter MD Work Phone: [facility] Genito-Urinary SurgeonsComment on above:Benign prostatic hyperplasia with urinary hesitancy (Primary Dx)Start: 03-16-2025 End: 84-04-0337sulakvkvgnBuyhdnki Ball DO Work Phone: [facility] Work Phone: Start: 03-16-2025 End: 12-45-4239Xeecltm encounter procedureBenjamin Ball DO-[facility] Work Phone: Start: 02-18-2025 End: 78-67-2581eqndkjwvbbYjuimzhxKathy MONROE Work Phone: [facility] Genito-Urinary SurgeonsComment on above:Benign prostatic hyperplasia with urinary hesitancy (Primary Dx)Start: 01-23-2025 End: 47-29-4654Aejagfyl SupportUlises Goetz MD Work Phone: [facility] Genito-Urinary SurgeonsComment on above:Benign prostatic hyperplasia with urinary hesitancy (Primary Dx)Start: 01-23-2025 End: 80-39-0103aqeqshwbrgWEBRGD K [facility] Start: 12-19-2024 End: 90-90-3221ybdaoumxaeCSEQKK K EMMERT [facility] Start: 12-18-2024 End: 31-27-9647yjkbdgdizhOmdnepim Ball DO Work Phone: [facility] Work Phone: Start: 12-18-2024 End: 91-61-0489Zzszgnp encounter procedureBenjamin Ball DO Work Phone: [facility] Work Phone: start: 69-53-3488Jfy-patient / Non-visitBenjamin Ball DO Work Phone: [facility] Work Phone: start: 12-05-2024 End: 24-40-8261Awqfjefpo to same day surgery centerBenjamin Ball DO Work Phone: [facility]: 12-05-2024 End: 91-93-5616bcihjhbaogTcbwnjaz Ball DO Work Phone: [facility] Work Phone: Start: 11-21-2024 End: 69-97-2395Ysnocjszeoqci procedureUlises Goetz MD Work Phone: [facility] Genito-Urinary SurgeonsStart: 11-21-2024 End: 71-20-1872Zkynhvb encounter procedureBenjamin Ball DO Work Phone: [facility] Work Phone: Start: 11-21-2024 End: 79-27-9644boimsahleiQocdluaw Ball DO Work Phone: [facility] Work Phone: Start: 21-81-7471Ggtbzpucm for preprocedural laboratory examinationJohn Cuadra [facility] Physician GroupStart: 11-17-2024 End: 48-48-8679Ulyittyzx encounterUlises Goetz MD Work Phone: [facility] General SurgeryStart: 11-13-2024 End: 01-55-2208Brqbmek encounter procedureCameron Mekhi DO Work Phone: [facility] Work Phone: start: 11-12-2024 End: 73-84-1430Meopngmvq encounterRamelidal Marti Glez [facility] Genito- Urinary SurgeonsStart: 11-11-2024 End: 83-90-4949pncizcujxwPwabiezvoMetroHealth Main Campus Medical Center Work Phone: Start: 11-11-2024 End: 24-84-8162Ykazspu encounter procedureFirsthealth Physician GroupEncompass [facility] Work Phone: Start: 11-11-2024 End: 57-61-0436nwrlwwdkylYQZJLMO G [facility]ERMad[facility] Start: 11-11-2024 End: 09-88-6423Txddpncp SupportHarshil Palencia MD Work Phone: [facility] Genito-Urinary SurgeonsComment on above:Benign prostatic hyperplasia with urinary hesitancy (Primary Dx)Start: 11-10-2024 End: 05-37-9693Wbbllunqa encounterUlises Goetz MD Work Phone: [facility] Genito-Urinary SurgeonsStart: 11-07-2024 End: 65-27-1801Kwovmpmko department patient visitEncompass Braintree Rehabilitation Hospitaltart: 22-12-4846Jdu-patient / Non-visitFirsthealth Physician GroupMulticare [facility] Work Phone: Start: 11-07-2024 End: 74-23-1171Wikacr outpatient visit 25 minutesUlises Goetz MD Work Phone: [facility] Genito-Urinary SurgeonsComment on above:Urologic disorders (Primary Dx); Benign prostatic hyperplasia with urinary hesitancy; Elevated PSAStart: 11-07-2024 End: 06-34-9691lkyjufucrbFxbtm Cancelliere RNProMedica Call CenterStart: 10-24-2024 End: 72-95-4305Bigeiwjre encounterSherri Nolbertoaudrey [facility] Genito- Urinary SurgeonsStart: 10-17-2024 End: 74-22-0791efjfgbbsrwZtyopaeyiMetroHealth Main Campus Medical Center Work Phone: Start: 10-17-2024 End: 76-59-7671Fruytlk encounter procedureFirsthealth Physician [facility] Work Phone: Start: 10-10-2024 End: 93-22-7971Uhhzupvy SupportUlises Goetz MD Work Phone: [facility] Genito-Urinary SurgeonsComment on above:Benign prostatic hyperplasia with urinary hesitancy (Primary Dx)Start: 10-10-2024 End: 97-23-7858dklatvtbttWDSBOM K [facility] Start: 09-12-2024 End: 87-42-5422Zmdqompd SupportUlises Goetz MD Work Phone: [facility] Genito-Urinary SurgeonsComment on above:Benign prostatic hyperplasia with urinary hesitancy (Primary Dx)Start: 09-12-2024 End: 17-76-3322snpljesvjxPYYKGHRiverview Behavioral Health [facility] Start: 08-25-2024 End: 98-37-6926hjzvcbsuvdGjvjcvhh Ball DO Work Phone: [facility] Work Phone: Start: 08-25-2024 End: 56-90-4656Iopgjjq encounter procedureBenjamin Ball DO Work Phone: [facility] Work Phone: Start: 08-13-2024 End: 68-32-3732hgjccohhvnKffyrkcAlbaro Walter MD Work Phone: [facility] Genito-Urinary SurgeonsComment on above:Benign prostatic hyperplasia with urinary hesitancy (Primary Dx)Start: 07-15-2024 End: 56-00-2343izgzeyldtxCYUBJGJ G [facility] Start: 07-14-2024 End: 37-07-8476Kewzdft encounter procedureBenjamin Ball DO Work Phone: [facility] Work Phone: Start: 65-68-6609Llaacth encounter procedureBenjamin Ball DO Work Phone: [facility]: 66-30-4179Rkq- patient / Non-visitBenjamin Ball DO Work Phone: [facility] Work Phone: Start: 06-20-2024 End: 96-49-3501Infkqh outpatient visit 15 minutesUlises Goetz MD Work Phone: [facility] Genito-Urinary SurgeonsComment on above:Elevated PSA (Primary Dx); Benign prostatic hyperplasia with urinary hesitancy; Urologic disordersStart: 06-20-2024 End: 78-45-8782dlmtsjuwpmATISJR K EMMERT [facility] Start: 06-18-2024 End: 86-35-5011Wagrdohco encounterAlissa Marti Banks Phys[facility] Genito- Urinary SurgeonsStart: 06-18-2024 End: 67-51-2550kvnvkkssimAUSOXDKPEncompass Braintree Rehabilitation Hospitaltart: 30-45-4313Wkp-patient / Non-visitBenjamin Ball DO Work Phone: [facility] G[facility] Work Phone: Start: 06-12-2024 End: 24-80-0392Fgjstubyx to same day surgery centerBenjamin Ball DO Work Phone: [facility] Work Phone: Start: 06-12-2024 End: 71-73-5896dnyryhpsbxDddzstvc Ball DO Work Phone: [facility] Work Phone: Start: 05-21-2024 End: 05-74-4786crzpjtbkjsBW Cameron Gaming Work Phone: [facility] Work Phone: Start: 05-21-2024 End: 47-88-1086Uyezoqo encounter procedureDO Cameron Gaming Work Phone: [facility] Work Phone: Start: 05-16-2024 End: 30-14-0051Bruccjaal encounterAlexander Damon MD Work Phone: [facility] NORWALKStart: 05-13-2024 End: 86-09-9484Knemrw flowsheetAlexander Damon MD Work Phone: [facility] ENTStart: 05-13-2024 End: 01-17-3412Axejir flowsheetAlexander Damon MD Work Phone: [facility] ENTStart: 05-13-2024 End: 18-92-3562Zgnlan outpatient new 45 minutesAlexander Damon MD Work Phone: [facility] CI ENTComment on above:Pharyngoesophageal dysphagia (Primary Dx)Start: 05-13-2024 End: 95-67-6144txakikhgopOTGWDR H TIMMISNot AvailableStart: 05-09-2024 End: 91-08-0707Jytnfd outpatient visit 25 minutesUlises Goetz MD Work Phone: [facility] Genito-Urinary SurgeonsComment on above:Urologic disorders (Primary Dx); Benign prostatic hyperplasia with urinary hesitancy; Elevated PSAStart: 05-09-2024 End: 10-07-0826gclymvthpcWCSWTW K EMMERT [facility] Start: 05-06-2024 End: 55-88-6012Tiolefizs encounterUlises Goetz MD Work Phone: [place] [facility] [facility] SurgeonsStart: 05-06-2024 End: 85-70-1097mcjmfdrmlrLRLAGN K EMMERT [facility]tart: 04-24-2024 End: 64-90-7738Efbrhl outpatient visit 25 minutesUlises Goetz MD Work Phone: [facility]ito-Urinary SurgeonsComment on above:Urinary retention (Primary Dx); Urologic disorders; Benign prostatic hyperplasia with urinary hesitancy; Elevated PSAStart: 68-95-5133kqotdysxrmZV RMI Work Phone: [facility] Work Phone: Start: 56-82-5075Uyt-patient / Non-visitDO RMI Work Phone: [facility] Work Phone: Start: 04-18-2024 End: 20-87-6882kaqdahmtjeHR RMI Work Phone: [facility] Work Phone: Start: 04-18-2024 End: 38-33-1696Xpcbeoj encounter procedureDO RMI Work Phone: [facility] Work Phone: Start: 04-18-2024 End: 75-17-2843Vouoolpvb encounterAlissa Marti [facility] Genito- Urinary SurgeonsStart: 04-17-2024 End: 33-13-0898Wyxmdtmvo encounterAlissa Marti [facility] Genito- Urinary SurgeonsStart: 04-14-2024 End: 94-37-8532Iojmyafty department patient visitDO RMI Work Phone: [facility]-Emergency Room Work Phone: Start: 01-56-5287Zum-patient / Non-visitDO RMI Work Phone: [facility] Work Phone: Start: 03-28-2024 End: 99-70-8933vxgokqvtniBjuoedrkt [facility] Work Phone: Start: 03-28-2024 End: 60-65-9699Sxlwjnp encounter procedureF[facility] Work Phone: Start: 01-11-2024 End: 43-28-1537rkmjlcohbcYN Cameron Gaming Work Phone: [facility] Work Phone: Start: 01-11-2024 End: 05-25-6204Tcolywm encounter procedureDO Cameron Gaming Work Phone: [facility] Work Phone: Start: 57-58-5617guqayunayfEapikzq P COOKFacility:EU SanduskyStart: 78-84-9159Rod-patient / Non-visitDO Cameron Gaming Work Phone: [facility] Work Phone: Start: 12-06-2023 End: 46-25-1149xzwtetwkieAH Cameron Gaming Work Phone: [facility] Work Phone: Start: 12-06-2023 End: 36-35-0735Iinxayb encounter procedureDO Cameron Gaming Work Phone: [facility] Work Phone: Start: 61-33-3843Nce-patient / Non-visitDO Cameron Gaming Work Phone: [facility] Phys[facility] Group-[facility] Work Phone: Start: 11-30-2023 End: 02-07-1237fcmohljawfSzdgzwztgic S. ReeseFacility:CD:[id number]: 11-29-2023 End: 50-84-1918Wnt-patient / Non-visitDO Cameron Gaming Work Phone: [facility] Phys[facility] Group-[facility] Gastroenterology Work Phone: Start: 11-28-2023 End: 57-13-2048Bpryvxvwsr and management of inpatientDO Cameron Ball Work Phone: [facility] [employer] Work Phone: Start: 95-19-4655Ubi-patient / Non-visitDO Cameron Ball Work Phone: [facility] Work Phone: Start: 11-14-2023 End: 96-79-4896Uxcybngic to same day surgery centerDO Cameron Ball Work Phone: [facility] SystemStart: 11-14-2023 End: 29-33-7184idtcxesfmaLC Cameron Ball Work Phone: [facility] Work Phone: Start: 13-17-9350Mae-patient / Non-visitDO Cameron Ball Work Phone: [facility] Neurosurgery Work Phone: start: 11-07-2023 End: 45-07-8416ykmpzufypaLC Cameron Ball Work Phone: [facility] Work Phone: Start: 11-07-2023 End: 15-49-8112Qkwmelj encounter procedureDO Cameron Ball Work Phone: [facility]-Pre-Surgical Testing Work Phone: Start: 51-56-2397Menazqd encounter statusDO Cameron Ball Work Phone: [facility] 10-24-2023 End: 63-74-7937qcxmrofbpvBM Cameron Ball Work Phone: [facility] Work Phone: Start: 10-24-2023 End: 86-09-4796Zqazkbxgm for preprocedural cardiovascular examinationDO Cameron Ball Work Phone: [facility]: 10-24-2023 End: 51-22-4121Znxvdqw encounter procedureDO Cameron Gaming Work Phone: [facility] Work Phone: Start: 10-18-2023 End: 13-73-2445tzwhgxxgwzCY Cameron Gaming Work Phone: [facility] Work Phone: Start: 10-18-2023 End: 31-38-8009Myfscif encounter procedureDO Cameron Gaming Work Phone: [facility] Work Phone: start: 10-11-2023 End: 79-32-6507uelpcprsxpBK Cameron Gaming Work Phone: [facility] Work Phone: Start: 10-11-2023 End: 32-35-3909Wugwppr encounter procedureDO Cameron Gaming Work Phone: [facility] Work Phone: Start: 10-10-2023 End: 28-11-8526Fkezwwq encounter procedureDO Cameron Gaming Work Phone: [facility] Work Phone: start: 09-26-2023 End: 95-79-6276Robgvqi encounter procedureDO Cameron Gaming Work Phone: [facility] Work Phone: Start: 07-11-2023 End: 49-29-4150mrliktqgnmDbyzsxkm Mekhi Other [employer] Other Start: 41-07-4930Xlwevfi encounter procedureBentedmin BallFPG [facility] ClinicStart: 07-01-2023 End: 58-25-6210recyjzxranLqzroalm Mekhi Other [employer] Other Start: 04-03-5185Ebhsyecym encounterBenjamin BallFPG [facility] ClinicStart: 03-30-2023 End: 92-41-0820ibrsoshaciWuzmney Ditty Other [employer] Other Start: 14-79-3347Zeixiazfq encounterCameron DittyFPG Referral CoordinatorStart: 03-07-2023 End: 59-92-1504pwskpsanufJqtggunz Ball Other [facility] [employer] Other Start: 78-10-9901Thzqaq outpatient visit 25 minutes Cameron BallFPG [facility] ClinicStart: 03-05-2023 End: 16-75-9857liwehpgonmYdkngsvd Ball Other nowiseri [employer] Other Start: 91-06-2356Jctwfivey encounterBenjamin BallFPG [facility] ClinicStart: 65-74-1063Sentbfctw encounterBenjamin BallFPG [facility] ClinicStart: 02-26-2023 End: 21-91-4531Bsmjeduwj to same day surgery centerDO Cameron Gaming Work Phone: [facility]-Digestive [facility] Work Phone: Start: 02-26-2023 End: 51-81-7775cmhvqpjsrxQP Cameron Gaming Work Phone: [facility] Work Phone: Start: 02-13-2023 End: 55-63-4161rlqwnahbthMhptupwh Ball Other nowiseri [employer] Other Start: 45-91-3371Cbmmxf outpatient visit 15 minutes Cameron BallFPG [facility] ClinicStart: 01-10-2023 End: 33-38-0133nsvszgteefWmmu Asaad Other [employer] Other Start: 49-04-0480Qptlvcvvj encounterImad AsaadFPG Referral CoordinatorStart: 01-02-2023 End: 78-58-1814dlczplnohzXwmcphwl Ball Other [employer]iseri [employer] Other Start: 35-63-0110Yxmqtq outpatient visit 25 minutes Cameron BallFPG [facility] ClinicStart: 11-01-2022 End: 59-87-3849qadysmzcobTbawmiqu Ball Other [email or web address] Other Start: 87-67-3390Trhoim outpatient visit 25 minutes Cameron BallFPG [facility] ClinicStart: 10-25-2022 End: 84-86-3126xprmhzdrtaYP CAMERON BALLFacility:V9Hqfcl: 10-20-2022 End: 48-24-4979nvvppoqctqCaantqfd Ball Other [facility] [employer] Other Start: 45-21-9888Opjiecjle encounterBenjamin BallFPG [facility] ClinicStart: 10-18-2022 End: 50-51-0009rytkqydsumZnxvkkyv Ball Other [employer] Other Start: 98-65-0274Cpnqvvdbr encounterBenjamin BallFPG [facility] ClinicStart: 07-20-2022 End: 86-57-4690bksttsshqbVX CAMERON BALLFacility:C4Wlcmh: 07-18-2022 End: 83-58-7723gyznsgkhhzTJ CAMERON BALLFacility:M4Pysxd: 96-16-9144Qhavy health examinationImad Asaad Other [facility] [employer] Other Start: 18-17-9998Cfstwfgkh for general adult medical examination without abnormal findingsBenjamin Ball Other [employer] Other Start: 12-27-2021 End: 49-46-9318wrveekppehFN CAMERON BALLFacility:B8Golmx: 12-16-2021 End: 57-87-0471xbjwdrukqnHL DOCTOR MISCFacility:A3Cyhid: 08-29-2021 End: 39-34-3471dwmnyvzzccVgclvd Elskens Other nowiseri [employer] Other start: 44-18-8543Hbnnpx outpatient visit 15 minutes Hiren MirandagavinHenderson County Community Hospital NeurosurgeryStart: 08-03-2021 End: 02-92-1636dzbhidhbspBjvgsx Rekha Other Now[employer] Other start: 95-87-0343Vagaux outpatient visit 15 minutes Hiren RaydesmondHenry County Hospital Neurosurgery Procedures DateProcedureProcedure DetailPerforming ClinicianStart: 71-13-7965Thwwdplnikxmq of median nerveBenjamin Ball DO Work Phone: Start: 02-84-4574AiobpmqgsahngyvcsuqilwnllxXjihqnta Ball DO Work Phone: Start: 87-95-5025Rxossz-up visitFollow-upGREGOR Keyshawn SOFY JRStart: 06-77-2474HZ of abdomen and pelvis without contrastDO Cameron Ball Work Phone: Start: 12-79-4791Jbjyezuo identified in Urine by CultureDO Cameron Ball Work Phone: Start: 27-29-0066Bvsld cultureDO Cameron Ball Work Phone: Start: 63-51-4112Fipkg cultureDO Cameron Ball Work Phone: Start: 76-75-4856Kffbalfoqzlsi of median nerveDO Cameron Ball Work Phone: Start: 44-58-3438C-ray of lumbar spine, six views including bending viewsDO Cameron [employer] Work Phone: Start: 05-42-3064Y-ray of cervical spineDO Cameron Ball Work Phone: Start: 41-07-6493WkrjfxrfdiqabvnbxspndpzqcwWA Cameron Gaming Work Phone: Start: 48-33-6061Hboxtspne for malignant neoplasm of colonImad Gopi Other Depression screeningImad Gopi Other Plan of Treatment DateCare ActivityDetailAuthorStart: 37-24-1591NChT,Tdap and Td Vaccines (2 - Td or Tdap)DTaP,Tdap and Td Vaccines (2 - Td or Tdap)ProMc[facility] hospital Health SystemStart: 87-79-4911Hcmfjlq ScreeningTobacco ScreeningProWyandot Memorial Hospitalca Health SystemStart: 27-79-4495Xqtawhv ScreeningTobacco ScreeningProWyandot Memorial Hospitalca Health SystemStart: 07-10-2025 End: 30-46-4668Bgpsioa encounter adoxserky53/12/2025 11:45 AM EST Office Visit [facility] [address] [place] [address] [facility] [place] [address] Ulises Goetz Jr., MD [address] [place] [address] [facility] Genito-Urinary SurgeonsStart: 55-44-5956Wmjyhde ScreeningTobacco ScreeningProWyandot Memorial Hospitalca [facility] SystemStart: 05-26-2025 End: 86-25-6491Oysaxarkc specific antigen, diagnosticProstatic specific antigen, diagnostic Lab Routine Benign prostatic hyperplasia with urinary hesitancy Elevated PSA Expected: 05/26/2025 (Approximate), Expires: 04/10/2026[facility] Work Phone: Comment on above:Expected: 05/26/2025 (Approximate), Expires: 04/10/2026Start: 05-25-2025 End: 54-74-7306uagebblddx17/27/2025 10:00 AM EDT Support Visit [facility] [address] [place] [address] [address] [facility] [place] [phone] Lisa Walter MD [address] [place] [address] [facility] SurgeonsStart: 76-54-8885Vckpz BMI ScreeningAdult BMI ScreeningThe [facility] SystemStart: 84-54-9252Bftihcn ScreeningTobacco ScreeningThe [facility] System Start: 87-82-3288Posbw BMI ScreeningAdult BMI ScreeningThe [facility] System Start: 16-57-3166Dxuaekw ScreeningTobacco ScreeningProBluffton Hospital SystemStart: 04-22-2025 End: 02-57-1350glgnsvawgr15/24/2025 10:00 AM EDT Support Visit [facility] [address] [place] [address] [place] [phone] Keke Ortez PA [address] [place] [address] [facility]Ur[facility] SurgeonsStart: 04-10-2025 End: 35-03-4194Plorzrh encounter klaixlggq11/12/2025 9:45 AM EDT Office Visit [facility] [address] [place] [address] [place] [phone] Ulises Goetz Jr., MD [address] [place] [address] [facility]Ur[facility] SurgeonsStart: 93-77-1260NVRFY-19 Vaccine ( season)COVID-19 Vaccine ( season)[facility] SystemStart: 59-06-8743Fcbwcnpza vaccinationInfluenza VaccineThe [facility] of [facility] SystemStart: 03-23-2025 End: 33-72-0704ecjovltbwx37/25/2025 10:30 AM EDT Support Visit [facility] [address] [place] [address] [place] [address] Lisa Walter MD [address] [place] [address] [facility] SurgeonsStart: 02-20-2025 End: 47-81-9825Drpwnca encounter oatrmhplg29/25/2025 11:30 AM EDT Office Visit [facility] [address] [place] [address] Ulises Goetz Jr., MD [address] [place] [address] [facility] SurgeonsStart: 12-19-2024 End: 46-18-3031Rvlpvqgz Dhhbwbe0712/19/2024 8:45 AM EDT Clinical Support [facility] [address] [place] [address] Ulises Goetz Jr., MD [address] [place] [address] [facility]- Urinary SurgeonsStart: 47-50-7778YpwifmjceNewark Hospitaltart: 03-77-7217MavxpxtszNewark Hospitaltart: 11-21-2024 End: 56-84-1144Kjsehgw encounter rzgafoghr65/25/2025 11:15 AM EDT Office Visit [facility] [address] [place] [phone] Ulises Goetz Jr., MD [address] [place] [address] [facility]-Urinary SurgeonsStart: 11-11-2024 End: 13-78-0614Aiffixlu Nyznmqj3511/11/2024 10:30 AM EDT Clinical Support [facility] [address] [place] [address], [place] [address] aHrshil Palencia MD [address] [place] [address] [facility]Ur[facility] SurgeonsStart: 11-07-2024 End: 65-22-9542Jafxibv encounter /11/2025 9:30 AM EDT Office Visit [facility] [address] [place] [phone] Ulises Goetz Jr., MD [address] [place] [address] [facility]Ur[facility] SurgeonsStart: 10-10-2024 End: 90-39-0234Qfvzavei Xozeyuw5810/10/2024 11:00 AM EDT Clinical Support [facility] [address] [place] [phone] Ulises Goetz Jr., MD [address] [place] [address] [facility]Ur[facility] SurgeonsStart: 09-12-2024 End: 25-71-9528Jwpemtzv Eidacwt4409/12/2024 10:00 AM EST Clinical Support [facility] [address] [place] [phone] Ulises Goetz Jr., MD [address] [place] [address] [facility]Ur[facility] SurgeonsStart: 07-15-2024 End: 81-10-2765mvarhfgbjn03/17/2024 10:45 AM EST Support Visit [facility] [address] [place] [phone] Harshil Palencia MD [address] [place] [address] [facility]- Urinary SurgeonsStart: 06-20-2024 End: 93-94-1191Uzotgif encounter fjipxkfks49/22/2024 8:45 AM EST Office Visit [facility] [address] [place] [address] [address] [facility] [place] [phone] Ulises Goetz Jr., MD [address] [place] [address] [facility]Ur[facility] SurgeonsStart: 06-18-2024 End: 79-78-0737Bcrjqup encounter oqfocbkbm82/20/2024 2:20 PM EST Office Visit [facility] [address] [facility] [address] [place] [phone] Alexander Damon MD [address] [facility] [[email or web address]] [address] [place] [address] [facility] CI ENTStart: 54-27-8281DiyiuzobcNewark Hospitaltart: 05-30-2024 End: 15-72-8520Uehgllzyz specific antigen, diagnosticProstatic specific antigen, diagnostic Lab Routine Benign prostatic hyperplasia with urinary hesitancy Elevated PSA Expected: 05/30/2024 (Approximate), Expires: 05/09/2025[facility] Work Phone: Comment on above:Expected: 05/30/2024 (Approximate), Expires: 05/09/2025Start: 02-29-4781Yhglqoj referralK[facility]tering Health [facility] Work Phone: Start: 05-13-2024 End: 85-48-2164Setrkpz encounter ynjfuoxzd54/15/2024 10:50 AM EDT Office Visit [facility] [address] [place] [place] [phone] Alexander Damon MD [address] Luis Antonio [address] [place] [address] ArrivedNOALLIANCEHEALTH DURANT – [facility]UR[facility] ENTComment on above:ArrivedStart: 05-09-2024 End: 20-35-6053Mlvlcnc encounter gdjscffij15/11/2024 8:30 AM EDT Office Visit [facility] [address] [place] [address] [place] [address] Ulises Goetz Jr., MD [address] [place] [address] [facility]-Urinary SurgeonsStart: 47-85-8861Dvcsqku CounselingTobacco CounselingUNC Health Pardeetart: 04-24-2024 End: 99-02-8059Xaukozg encounter upqsjtnyz07/26/2024 2:15 PM EDT Office Visit [facility] [address] [place] [phone] Ulises Goetz Jr., MD [address] [place], [place] [address] [facility]Ur[facility] SurgeonsStart: 04-24-2024 End: 62-13-1966GfkpwfcxwldmnfOdclbweqsdrksw Procedure Routine Urinary retention Expected: 04/24/2024 (Approximate), Expires: 04/24/2025[facility] Work Phone: Comment on above:Expected: 04/24/2024 (Approximate), Expires: 04/24/2025Start: 44-42-9916Idgozjq referralUniversity Hospitals Geauga Medical Center Work Phone: Start: 87-66-3953Qjdtcozp identified in Urine by CultureNewark Hospitaltart: 35-81-1729DHNGV-19 Vaccine ()COVID-19 Vaccine ()[facility] Start: 40-81-2489YNZSP-19 Vaccine (4 - 2024-25 season)COVID-19 Vaccine ( season)[facility] SystemStart: 28-77-8194Ftdrfdtms vaccinationShriners Hospitals for ChildrenStart: 91-97-2266Wmccp BMI ScreeningAdult BMI ScreeningProBluffton Hospital SystemStart: 67-65-4326Xehcnae ScreeningTobacco ScreeningProProtestant Hospitaltart: 52-18-9466KbdyidicfNewark Hospitaltart: 11-30-2023 Bacteria identified in Urine by CultureUrine CultureNewark Hospitaltart: 47-64-6822Cgisgdkf to urologistAdena Regional Medical Center Start: 11-28-2023 End: 00-62-5351FnfziwflzNewark Hospitaltart: 72-81-8474Lmhysptd to gastroenterologistNewark Hospitaltart: 43-13-4394Fsqimbqj admissionNewark Hospitaltart: 11-14-2023 End: 99-98-1624NtgmxvccbNewark Hospitaltart: 77-63-5262MGQ 12 channel panelNewark Hospitaltart: 40-39-3010Lmfvkhr referralUniversity Hospitals Geauga Medical Center Work Phone: Start: 15-74-0642NclzhqckqAdena Regional Medical Center Start: 82-12-6980Misngndahczcek of varicella zoster vaccineZoster (Shingles) Vaccine (2 of 3)[facility] SystemStart: 80-41-6386Yjqq Risk ScreeningFall Risk ScreeningThe [facility] SystemStart: 04-28-3131Jybambpeqgdedp of varicella zoster vaccineZoster (Shingles) Vaccine (1 of 2)[facility] SystemStart: 82-60-3308Qzvyqkmqsh ScreeningDepression ScreeningThe [facility] SystemStart: 01-11-1940Medicare Annual Wellness VisitMedicare Annual Wellness VisitThe [facility] of [facility] SystemStart: 77-71-8036Vturrsn CounselingTobacco CounselingThe [facility] SystemComprehensive metabolic 2000 panel - Serum or PlasmaAdena Regional Medical CenterINSERT,TEMP INDWELLING BLAD CATH,SIMPLE INSERT,TEMP INDWELLING BLAD CATH,SIMPLE Procedures Routine Benign prostatic hyperplasia with urinary hesitancy Ordered: 08/13/2024[facility] Work Phone: Comment on above:Ordered: 08/13/2024INSERT,TEMP INDWELLING BLAD CATH,SIMPLEINSERT,TEMP INDWELLING BLAD CATH,SIMPLE Procedures Routine Benign prostatic hyperplasia with urinary hesitancy Ordered: 09/12/2024 [facility] Work Phone: Comment on above:Ordered: 09/12/2024INSERT,TEMP INDWELLING BLAD CATH,SIMPLEINSERT,TEMP INDWELLING BLAD CATH,SIMPLE Procedures Routine Benign prostatic hyperplasia with urinary hesitancy Ordered: 10/10/2024 [facility] Work Phone: Comment on above:Ordered: 10/10/2024INSERT,TEMP INDWELLING BLAD CATH,SIMPLEINSERT,TEMP INDWELLING BLAD CATH,SIMPLE Procedures Routine Benign prostatic hyperplasia with urinary hesitancy Ordered: 11/11/2024 [facility] Work Phone: Comment on above:Ordered: 11/11/2024INSERT,TEMP INDWELLING BLAD CATH,SIMPLEINSERT,TEMP INDWELLING BLAD CATH,SIMPLE Procedures Routine Benign prostatic hyperplasia with urinary hesitancy Ordered: 01/23/2025 [facility] Work Phone: Comment on above:Ordered: 01/23/2025INSERT,TEMP INDWELLING BLAD CATH,SIMPLEINSERT,TEMP INDWELLING BLAD CATH,SIMPLE Procedures Routine Benign prostatic hyperplasia with urinary hesitancy Ordered: 02/18/2025 [facility] Work Phone: Comment on above:Ordered: 02/18/2025INSERT,TEMP INDWELLING BLAD CATH,SIMPLEINSERT,TEMP INDWELLING BLAD CATH,SIMPLE Procedures Routine Benign prostatic hyperplasia with urinary hesitancy Ordered: 03/23/2025 [facility] Work Phone: Comment on above:Ordered: 03/23/2025INSERT,TEMP INDWELLING BLAD CATH,SIMPLEINSERT,TEMP INDWELLING BLAD CATH,SIMPLE Procedures Routine Benign prostatic hyperplasia with urinary hesitancy Ordered: 04/22/2025 [facility] Work Phone: Comment on above:Ordered: 04/22/2025MR [facility]ervical [facility]MR Lumbar spine WO [facility] SpringfieldPatient EducationKettering Health Dayton Work Phone: Patient referralUniversity Hospitals Geauga Medical Center Work Phone: Pulse volume recorder pneumoplethysmographyAdena Regional Medical CenterUS GallbladderAdventHealth Sebring Immunizations Immunization DateImmunizationNotesCare HkaijfxsOjeoldno92-06-9437pguatzufs, high dose seasonal, preservative-freeBenjamin Ball DO Work Phone: [facility]10-23-2024influenza virus vaccine, unspecified formulationUlises Goetz Jr., MD Work Phone: [facility] Medical CenterPressBabyXgbvxe09-31-7802Nffryoh 20Benjamin Ball Other [facility]09-08-2023influenza virus vaccine, unspecified formulationDO [employer] Work Phone: [facility]09-08-2023influenza, high dose seasonal, preservative-freeBenjamin Ball Other [employer] Other 10-153460-18-8905cbcjipkih virus vaccine, split virus (incl. purified surface antigen)[employer] Other [employer] Other 10-348597-79-7282usojoklnl virus vaccine, unspecified formulationDO Cameron Gaming Work Phone: [facility]06-17-2022tetanus toxoid, reduced diphtheria toxoid, and acellular pertussis vaccine, adsorbedDO Cameron Gaming Work Phone: [facility]10-27-2021COVID-19 mRNA-1273 (Moderna)DO Cameron Gaming Work Phone: [facility]09-14-2021influenza virus vaccine, split virus (incl. purified surface antigen)[employer] Other [facility] [employer] Other 09-411914-30-8341gjuckqcgg virus vaccine, unspecified formulationDO Cameron [employer] Work Phone: [facility]02-24-2021COVID-19 Vaccine Moderna - Documentation Purposes OnlyBemarta Gaming Other [facility]01-27-2021COVID-19 Vaccine Moderna - Documentation Purposes OnlyBemarta Gaming Other [facility]11-25-2020influenza virus vaccine, split virus (incl. purified surface antigen)[employer] Other [employer] Other 775463-86-6090bdgoesoeb virus vaccine, unspecified formulationDO Cameron Gaming Work Phone: [facility]11-25-2020Seasonal trivalent influenza vaccine, adjuvanted, preservative freeDO Cameron Gaming Work Phone: [facility]10-16-2019influenza virus vaccine, split virus (incl. purified surface antigen)[employer] Other [employer] Other 011339-06-0645epgkmayww virus vaccine, unspecified formulationDO Cameron [employer] Work Phone: [facility]10-01-2019influenza, high dose seasonal, preservative-freeDO Cameron Gaming Work Phone: [facility]10-17-2018influenza virus vaccine, split virus (incl. purified surface antigen)[employer] Other [employer] Other 172125-45-4937npcdrebzv virus vaccine, unspecified formulationDO Cameron Gaming Work Phone: [facility]10-17-2018Seasonal trivalent influenza vaccine, adjuvanted, preservative freeDO Cameron Gaming Work Phone: [facility]09-19-2018 pneumococcal polysaccharide vaccine, 23 Aaron Damon MD Work Phone: [facility] ChildrenBriqcvisju18-95-5042kyymkosbp virus vaccine, split virus (incl. purified surface antigen)[employer] Other [employer] Other [id number] virus vaccine, unspecified formulationDO [employer] Work Phone: [facility]09-07-2017influenza, high dose seasonal, preservative-freeDO [employer] Work Phone: [facility]10-03-2016 pneumococcal conjugate vaccine, 13 valentBentedsusan Gaming Other [facility]09-29-2016influenza virus vaccine, split virus (incl. purified surface antigen)[employer] Other [employer] Other [id number] virus vaccine, unspecified formulationDO [employer] Work Phone: [facility]09-29-2016influenza, high dose seasonal, preservative-freeDO [employer] Work Phone: [facility]08-17-2016zoster vaccine, liveAlexander Damon MD Work Phone: [facility] ChildrenRnlkqhrrvk68-52-0378grbggt vaccine, unspecified formulationUlises Goetz Jr., MD Work Phone: [facility] HealthcareEwgmkl93-01-9273uosiabagt, high dose seasonal, preservative-freeAlexander Damon MD Work Phone: [facility] HealthcareNEGATED: Highlighted row has not occurred!88-51-3456snwlyzgrt, high dose seasonal, preservative-freePatient ObjectionDanimartha Da Silva Other [employer] Other NEGATED: Highlighted row has not occurred!04-09-2019 influenza virus vaccine, unspecified formulationDO [employer] Work Phone: [facility] Payers DatePayer CategoryPayerPolicy [id number]-hto [id number] 2022MedicaidAETNA MEDICARE ADVANTAGE [id number] 2022MedicareAETNA MEDICARE AETNA MEDICARE PLAN (PPO) [id number] 2021-Present [phone] [address] [place] [id number] Medicare HMOAETNA MEDICARE [id number] [id number] 2.16.840.9.86422[id number] 2.16.840.1.166112.3.579.2.593 [id number] 2.16.840.1.430024.3.57[id number] 2.16.840.1.586408.3.57[id number] 2.16.840.1.491257.3.57[id number] 2.16.840.1.528321.3.57[id number] 2.16.840.1.990322.3.57[id number] 2.16.840.1.785610.3.579.[id number] 2.16.840.1.415127.3.57[id number] 2.16.840.1.781525.3.57[id number] 2.16.840.1.963864.3.57[id number] 2.16.840.1.079532.3.57[id number] 2.16.840.1.057576.3.57[id number] 2.16.840.1.627189.3.579.[id number] 2.16840.1.129651.3.57[id number] 2.16840.1.341667.3.57[id number] 2.16840.1.720899.3.579.[id number] 2.0.1.356897.3.57[id number] 2.840.1.847873.3.57[id number] 2.0.1.783251.3.57[id number] 2.0.1.366100.3.57[id number] 2.0.1.045397.3.579.[id number] 2.0.1.662059.3.57[id number] 2.0.1.754741.3.579.[id number] 2.0.1.282378.3.57[id number] 2.840.1.008572.3.579.2.1286MedicareMEBQLKBP 2.840.1.721881.19Medicare [id number]/HFA/FAP [id number]-[id number]-[id number] 2.16.840.1.0[id number] 2.16.840.1.110796.3.579.2.531 [id number] 2.16.840.1.0[id number] 2.16.840.1.328293.3.579.2.531 Social History DateTypeDetailFacilityUnknown if ever smokedN[facility] [employer] Other start: 09-09-2020 End: 52-53-0789Ilf Assigned At BirthThe [facility] SystemStart: 02-26-2023 Tobacco smoking status NHISEx-smoker (finding)[facility] Start: 17-23-7600Faj Assigned At [facility] Start: 10-24-2023 End: 89-50-4069Xxzqhnn smoking status NHISSmoker (finding)[facility] CenterTobacco smoking status NHISTobacco smoking consumption unknownNOMS HealthcareStart: 58-30-5759Snx assigned at birthNot on fileThe [facility] of [facility] SystemStart: 08-25-2022 End: 80-43-8208Zoijsbf smoking status NHISSmokes tobacco dailyProShelby [facility] Health SystemHistory of tobacco useCigar SmokerProBluffton Hospital SystemStart: 08-25-2022 End: 36-43-0496Tbzbrar use and exposureSmokeless tobacco non-userProShelby [facility] Health SystemStart: 02-17-8130Lkiwcdmic beverage intakeEx-drinker (finding)[facility] HealthcareStart: 09-09-2020 End: 05-41-8227Btwpccs of Social functionProBluffton Hospital SystemStart: 03-01-2019 End: 37-69-3706SodSpwm (finding)[facility]-20-2024 End: 56-49-3830Obdbfcnyq beverage intakeCurrent drinker of alcohol (finding) [facility] HealthcareChildcareUnknoRiverside Tappahannock Hospitaltart: 03-01-2019 Alcohol CommentdailyUK Healthcare Medical Equipment Procedure CodeEquipment CodeEquipment Original TextEquipment IdentifierDates Capsule endoscopy, for patency of lumen evaluationVideo capsule endoscopy system ()[id number] FDAStart: 29-98-0198Dclrpc fixation plate, non-bioabsorbable()[id number] FDAStart: 09-10-5903Xrirriezrclihr- body internal spinal fixation system()[id number] FDAStart: 43-35-3374Fugffsbyfwajkt-body internal spinal fixation system ()[id number] FDAStart: 61-05-6702Ixdnmrsyxjqsxy- body internal spinal fixation system()[id number] FDAStart: 35-61-4312Hoio-screw internal spinal fixation system, non-sterile ()[id number] FDAStart: 73-81-7100Ouyt-screw internal spinal fixation system, non-sterile()[id number] FDAStart: 04-27-2020 Goals DatePatient GoalDesired Activity/State Functional Status WivlZeziaxclemMjmkepWchzyqzy02-32-5560Ishihhzgvx statusPatient at Baseline [facility] Work Phone: Mental Status MjfqSadkfoegtqYppypjRhujwsry61-79-8023Dobwhugwg functionCognitive Status Patient at BaselineK[facility] Work Phone: Clinical Notes 08-03-2021 to 04-22-2025 Note Date & WpzrQicyJgscfvxg40-01-7582 History of Present illness Narrative* Camila Kidd LPN - 04/22/2025 10:00 AM EDT Pt. Arrives at this office for a regular monthly catheter change. Pt. Brought back to the tx room. Pt. Prepped himself with minimal help from this nurse. 10 mL Ns then removed from the balloon port and 18 fr coude catheter removed with no difficulties. Pt. Meatus then prepped with Betadine swabs. 18 fr coude catheter then inserted into the urethra with no difficulties. 10 mL NS then inserted intoballoon port. Leg bag then attached to the catheter then secured onto the right thigh per Pt. Preference. Pt. Then cleaned up. Pt. Then redressed himself with minimal help from this nurse. Pt. To return in one month for regular monthly catheter change. Camila Kidd LPN Ordering Physician: Dr. Colleen MD Supervising Physician: Keke Ortez PA-C documented in this encounterUK Healthcare09-12-2025 History of Present illness Narrative* Ulises Goetz Jr., MD - 04/10/2025 9:45 AM EDT Images from the original note were not included. 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 gabapentin (NEURONTIN) 100 mg capsule hydroCHLOROthiazide (HYDRODIURIL) 25 mg tablet Take 1 tablet (25 mg total) by mouth daily. metoprolol succinate XL (TOPROL XL) 50 mg 24 hr tablet Take 1 tablet (50 mg total) by mouth in the morning. mbmmeqxa-jgcx-BX-calcium &mins (THERAGRAN-M) 9 mg iron-400 mcg tablet Take 1 tablet by mouth inthe morning. omeprazole (PriLOSEC) 40 mg capsule traMADoL (ULTRAM) 50 mg tablet Take 1 tablet (50 mg total) by mouth every 8 (eight) hours as neededfor pain (1 tab in the morning and 1 tablet in the evening before bed). dutasteride (AVODART) 0.5 mg capsule Take 1 capsule (0.5 mg total) by mouth in the morning. 90 capsule 3 No current facility-administered medications for [...] and vomitting. -per HPI Physical Exam: BP 130/70 Pulse 84 Ht 172.7 cm (5' 8 ) Wt 65.8 kg (145 lb) BMI 22.05 kg/m The patient appears alert, pleasant, without signs of acute illness, and in no distress. Respirations are unlabored. Penis without lesion or discharge. Testicles descended bilaterally without mass ortenderness . Prostate 40 g plus nontender nonnodular. Clear bladimir urine Wiley catheter. Unsteady ambulation with a walker. Assessment and Plan: Rishi was seen today for follow-up. Diagnoses and all orders for this visit: Urologic disorders Benign prostatic hyperplasia with urinary hesitancy - Prostatic specific antigen, diagnostic; Future Elevated PSA - Prostatic specific antigen, diagnostic; Future Other orders - dutasteride (AVODART) 0.5 mg capsule; Take 1 capsule (0.5 mg total) by mouth in the morning. Problem List Unprioritized Urologic disorders - Primary Overview 1. Concern for bleeding tendency without formal evaluation with benign prostatic hyperplasia with difficulty voiding, hesitancy, postvoid dribble, and occasional urge incontinence all progressive since onset of severe polyneuropathy 2021 with marginal help with Flomax 0.4 mg primary care; Urinary retention 500 mL catheterization [facility] 04/13/2024 with subsequent hematuria gross; 10/20/2022 benign prostatic hyperplasia with obstruction 100 g prominent median lobe cystoscopy; Vira 2. elevated PSA negative ultrasound prostate [...] Left lower pole simple renal cyst report [facility] CT 04/14/2024 9. Absent from requested 3 months follow-up from 12/22/2022 until 04/24/2024 10. Urodynamics unobtainable 05/06/2024 secondary to inability to catheterize patient with that catheter 11. Patient unable to complete successfully intermittent self catheterization for chronic retention, confirmed 04/10/2025 Elevated PSA Relevant Orders Prostatic specific antigen, diagnostic Benign prostatic hyperplasia with urinary hesitancy Relevant Orders Prostatic specific antigen, diagnostic Follow-up: Patient returns, with his , confirming he is just not able to complete successfully intermittent self catheterization in follow-up of his chronic retention. Benign prostatic hyperplasia without nodule on exam today and clear bladimir urine in his Wiley catheter. Reviewed options of chronic Wiely catheter or surgical procedure, as he is already on maximal medical therapy. As requested, I did discuss in full detail thulium laser prostatectomy. Thulium laser prostatectomy was offered and explained. Risks of bleeding, infection, postoperative urinary retention, possibly prolonged dysuria, expected permanent retrograde ejaculation, possible need for conversion to TURP, recurrent obstruction from recurrent prostatic adenoma, bladder neck contracture, or urethral stricture requiring additional surgical intervention, possible permanent urinary incontinence, and anesthetic risks including , mi, CVA, DVT, and PE were reviewed. Alternatives including TURP, Rezum, Urolift, microwave therapy, tuna procedure, pharmacotherapy, watchful waiting, and non intervention were reviewed. Postoperative activity restrictions, expected course, and care were reviewed. Questions of the patient and any significant others present were answered. Reviewed ideally we would complete complex urodynamics prior to this procedure, but recall he couldnot be catheterize successfully for the urodynamics, so attempting that would require full anesthesia just to place the catheter and then do the urodynamics, I advise subjecting him to additional risk, and I therefore would suggest considering all factors involved it would be reasonable to forego the complex urodynamics, understanding that they could demonstrate atonic bladder which would not respond to the laser prostatectomy or give additional information about potential postprocedure urinaryincontinence. He is very worried about postprocedure urinary incontinence and actually pretty content with the catheter. He wanted antibiotic ointment for what he described as red foreskin, but the foreskin appears absolutelyFine on exam today, and if that is a recurrent issue, that could be treated I advised with a circumcision. He wishes to consider all of the issues and continue with monthly catheter change at this time. Today I formally discontinued his Flomax 0.8 mg nightly, as he is obviously not voiding at all. I did prescribed continuation of dutasteride 0.5 mg daily, because that decrease his blood supply to the pro state, which will help if he does undergo endoscopic management. Despite his age, he agreed today he does want to continue checking PSA values. Accordingly return 2 months with PSA. Urology service is the provider for the patient's ongoing management of benign prostatic hyperplasia and elevated PSA, which is a chronic [...] you for your understanding. documented in this encounterUK Healthcare08-25-2025 History of Present illness Narrative* Camila Kidd LPN - 03/23/2025 10:30 AM EDT Pt. Arrives at this office for a regular monthly catheter change. Pt. Brought back to the treatmentroom. Pt. Prepped with minimal help from this nurse. 10 mL NS removed from the balloon port. The meatus was cleansed with betadine swabs and 2% lidocaine urojet instilled for comfort. #18 fr coude catheter placed without difficulty draining clear yellow urine. 10 cc's to placement balloon. wiley catheter attached to leg bag. Night bag given. Pt. To return in one month for next catheter change. Camila Kidd LPN Ordering Physician: Dr. Colleen MD Supervising Physician: Dr French MD documented in this encounterUK Healthcare07-23-2025 History of Present illness Narrative* Camila Kidd LPN - 02/18/2025 12:00 PM EDT Pt. Arrives at this office for a regular monthly catheter change. Pt. Brought back to the treatmentroom. Pt. Prepped himself on the treatment table. 10 mL NS removed from the balloon port. 18 fr coude catheter then removed with no difficulties. The meatus was cleansed with betadine swabs and 2% lidocaine urojet instilled for comfort. #18 fr coude wiley catheter placed without difficulty drainingclear yellow urine. 10 cc's to placement balloon. wiley catheter attached to leg bag. Night bag given. Camila Kidd LPN Ordering Physician: Dr. Colleen MD Supervising Physician: Keke Ortez PA-C documented in this encounterUK Healthcare06-27-2025 History of Present illness Narrative* Camila Kidd LPN - 01/23/2025 9:00 AM EDT Pt. Arrives at this office for his regular monthly catheter change. Pt. Brought back to the treatment room. He then prepped himself for the catheter exchange. 10 mL NS removed from the balloon port and catheter removed with no difficulties. Catheter tip is in tact. The meatus was cleansed with betadine swabs and 2% lidocaine urojet instilled for comfort. #18 fr coude wiley catheter placed withoutdifficulty draining clear yellow urine. 10 cc's to placement balloon. wiley catheter attached to leg bag. Night bag given and extra leg bag given to take home. Pt. Will return for a f/u appt with MD Alan in January and we will change his catheter at that time. Camila Kidd LPN Ordering Physician: Dr. Colleen MD Supervising Physician: Dr. Colleen MD documented in this encounterUK Healthcare05-22-2025 Evaluation note* Diagnosis Onset Date Resolution Status Admit Date Carpal tunnel syndrome of right wrist acuteMay 2024 11:03amBenign prostatic hyperplasia with lower urinary tract symptomsacuteAugust 2024 1:39pmCervical spondylosis with radiculopathy acuteAugust 2024 1:39pmCTS (carpal tunnel syndrome)acuteAugust 2024 1:39pmGastroesophageal reflux disease with esophagitis without hemorrhageacute March 16, 2025 1:39pmHypercholesterolemiaacuteAugust 2024 1:39pm HypertensionacuteAugust 2024 1:39pmLumbar spondylosis with myelopathyacute March 16, 2025 1:39pmOpiate analgesic use agreement existsacuteAut 2024 1:39pm [facility] Work Phone: [phone] History of Present illness Narrative* Ulises Goetz Jr., MD - 11/21/2024 3:50 PM EDT Patient rescheduled today's appointment documented in this encounterUK Healthcare04-21-2025 Miscellaneous Notes* Telephone Encounter - Ulises Goetz Jr., MD - 11/17/2024 10:42 AM EDT Images from the original note were not included. Noted. Thank you. From electronic record this would be culture from 11/07/2024. To my view patient does not even needto have that treated unless he develops fever or obvious other clinical signs of illness given his chronic catheter. I agree they should managed culture as they saw fit clinically given commentary that he was in the [facility]. Thank you. View All Conversations on this Encounter 11/12/24 9:46 AM BRENT Rausch routed this conversation to Me (Selected Message) BRENT Rausch RT 11/12/24 9:46 AM Note Maria Teresa Mcintyre RN calls asking if Dr. Goetz saw patient's positive Urine culture. I explained Dr. Goetz was out of the office the rest of the week. Pt was in the [facility]. Collected a urine culture at that time. Treated with Keflex. Asking if they should manage the positive urine culture with resistance in Dr. Goetz's absence. I replied with a yes. documented in this encounterUK Healthcare04-21-2025 Telephone encounter Note* Telephone Encounter - Ulises Goetz Jr., MD - 11/17/2024 10:42 AM EDT Images from the original note were not included. Noted. Thank you. From electronic record this would be culture from 11/07/2024. To my view patient does not even needto have that treated unless he develops fever or obvious other clinical signs of illness given his chronic catheter. I agree they should managed culture as they saw fit clinically given commentary that he was in the [facility]. Thank you. View All Conversations on this Encounter 11/12/24 9:46 AM BRENT Rausch routed this conversation to Me (Selected Message) BRENT Rausch RT 11/12/24 9:46 AM Note Maria Teresa Mcintyre RN calls asking if Dr. Goetz saw patient's positive Urine culture. I explained Dr. Goetz was out of the office the rest of the week. Pt was in the [facility]. Collected a urine culture at that time. Treated with Keflex. Asking if they should manage the positive urine culture with resistance in Dr. Goetz's absence. I replied with a yes. [facility]04-16-2025 Miscellaneous Notes* Telephone Encounter - BRENT Rausch - 11/12/2024 9:41 AM EDT Maria Teresa Mcintyre RN calls asking if Dr. Goetz saw patient's positive Urine culture. I explained Dr. Goetz was out of the office the rest of the week. Pt was in the [facility]. Collected a urine culture at that time. Treated with Keflex. Asking if they should manage the positive urine culture with resistance in Dr. Goetz's absence. I replied with a yes. documented in this encounterUK Healthcare04-16-2025 Telephone encounter Note* Telephone Encounter - BRENT Rausch - 11/12/2024 9:41 AM EDT Maria Teresa Mcintyre RN calls asking if Dr. Goetz saw patient's positive Urine culture. I explained Dr. Goetz was out of the office the rest of the week. Pt was in the [facility]. Collected a urine culture at that time. Treated with Keflex. Asking if they should manage the positive urine culture with resistance in Dr. Goetz's absence. I replied with a yes. [facility]04-15-2025 History of Present illness Narrative* Camila Kidd LPN - 11/11/2024 10:30 AM EDT Pt. Arrives at this office for ISC education per Dr. Colleen MD. Pt. Was in the ED on 11/07/2024for retention post ISC teaching. This nurse went over the steps of ISC with Patient and his . This nurse then helped the Pt. Prep himself on the treatment table for catheter removal. 100 mL inserted into the catheter. 10 mL then removed from the balloon port, and catheter removed. This nurse then gave the Pt. Supplies to perform ISC on himself while this nurse observed and walked him through any questions he may have. Pt. Then cleansed his hands and penis with wipes. Pt. Then took the coudecatheter and inserted the catheter with the coude tip facing upward into the meatus with no difficulties. He then had a urine return of 150 mL light yellow urine. Slight odor noted. Pt. Then stated he felt confident in doing it at home. This nurse then had a verbal agreement with the Pt. And his to come back later for a PVR to ensure he is emptying his bladder enough. Pt. Would also return to the office sooner If he was unable to perform ISC on himself. Pt. And his then left the office to return later for another nurse visit. At 1305, this nurse received a call from the Pt. Stating he has been drinking fluids, he felt like he was starting to get a full bladder so he went to try the ISC and was only able to get blood in the catheter with no urine return. Pt. States he is starting to have abdominal discomfort as well. This nurse did ask the Pt. To come into the office at this time so we could figure out what was going on. Pt. Agreed. Pt. Then arrived at this office for a nurse visit. After talking with the Pt. He decided to have a catheter reinserted. Pt. Will see Dr. Colleen MD for a follow up and at that time possibly try ISC again. Pt. Is open to retrying ISC. This nurse then prepped the Pt. With Betadine swabs and Urojet. A 18 fr coude catheter was inserted with an immediate return of 400 mL yellow urine. 10 mL NS inserted into the balloon port. Catheter was tested for securement, which it was. Catheter then attachedto a leg bag per Pt. Preference. Pt. Will return for his follow up with Dr. Colleen MD. Pt. Willcall this nurse with any questions or concerns. Camila Kidd LPN Ordering Physician: Dr. Colleen MD Supervising Physician: MD Patricia documented in this encounterAshtabula County Medical CenterOrthodata Havenwyck [id number] Miscellaneous Notes* Telephone Encounter - Ulises Goetz Jr., MD - 11/10/2024 7:55 AM EDT Images from the original note were not included. See the below messages. Patient went to the emergency department and had indwelling Wiley catheter placed. Please get him into the office this week any office with treatment nurse to review intermittent catheterization techniques and see if he can do it successfully. If he is successful, get him appointment within 2-4 weeks with me to follow up on his status. If he is not successful, or if he declines, keep/replace indwelling Wiley catheter and get him appointment to see me 1-3 weeks any office okay. Difficulty Urinating, Urinary Catheter Insertion or Check (Newest Message First) View All Conversations on this Encounter Maria Esther Skinner RN routed conversation to You3 days ago Maria Esther Skinner RN3 days ago Contract: 195 He started self cath today, did it in the office and everything went well, came home today, attempted between 2 and 3 and could not get urine - maybe a few blood clots, Tried at 5 pm and just tried again just clogged with blood clots, Only an inch or two of blood clots come out, have used about 4 of the catheters and starting to feel pressure- last time urine was obtained by self cath was at 11 am- Reason for Disposition New-onset MILD-MODERATE lower abdominal pain or swelling (distention) Protocols used: Urinary Catheter (e.g., Wiley) Symptoms and Hpxbacqxq-G-EO Note JESSICA Love Lawrence David [phone] days ago JESSICA Love Lawrence David [phone] days ago Maria Esther Skinner RN3 days ago BC ----- Message from Florinda sent at 11/07/2024 6:49 PM EDT ----- Contract: 195 calling for Rishi. They went to see Dr. Sofy today to self cathter. He did it in the office just fine at 11 am. At 3pm they were leaving to go somewhere they tried it again and couldn't getit in. Now around 5 pm. He had a bunch of pressure and blood clots. Still can't get nothing out. Note documented in this encounterUK Healthcare04-14-2025 Telephone encounter Note* Telephone Encounter - Ulises Goetz Jr., MD - 11/10/2024 7:55 AM EDT Images from the original note were not included. See the below messages. Patient went to the emergency department and had indwelling Wiley catheter placed. Please get him into the office this week any office with treatment nurse to review intermittent catheterization techniques and see if he can do it successfully. If he is successful, get him appointment within 2-4 weeks with me to follow up on his status. If he is not successful, or if he declines, keep/replace indwelling Wiley catheter and get him appointment to see me 1-3 weeks any office okay. Difficulty Urinating, Urinary Catheter Insertion or Check (Newest Message First) View All Conversations on this Encounter Maria Esther Skinner RN routed conversation to You3 days ago Maria Esther Skinner RN3 days ago Contract: 195 He started self cath today, did it in the office and everything went well, came home today, attempted between 2 and 3 and could not get urine - maybe a few blood clots, Tried at 5 pm and just tried again just clogged with blood clots, Only an inch or two of blood clots come out, have used about 4 of the catheters and starting to feel pressure- last time urine was obtained by self cath was at 11 am- Reason for Disposition New-onset MILD-MODERATE lower abdominal pain or swelling (distention) Protocols used: Urinary Catheter (e.g., Wiley) Symptoms and Vxaljopql-B-IZ Note JESSICA Love Lawrence David [phone] days ago JESSICA Love Lawrence David [phone] days ago Maria Esther Skinner RN3 days ago ----- Message from Florinda sent at 11/07/2024 6:49 PM EDT ----- Contract: 195 calling for Rishi. They went to see Dr. Goetz today to self cathter. He did it in the office just fine at 11 am. At 3pm they were leaving to go somewhere they tried it again and couldn't getit in. Now around 5 pm. He had a bunch of pressure and blood clots. Still can't get nothing out. Note [employer] [id number] Miscellaneous Notes* Telephone Encounter - Maria Esther Skinner RN - 11/07/2024 6:50 PM EDT ----- Message from Florinda sent at 11/07/2024 6:49 PM EDT ----- Contract: 195 calling for Rishi. They went to see Dr. Goetz today to self cathter. He did it in the office just fine at 11 am. At 3pm they were leaving to go somewhere they tried it again and couldn't getit in. Now around 5 pm. He had a bunch of pressure and blood clots. Still can't get nothing out. * Telephone Encounter - Maria Esther Skinner RN - 11/07/2024 6:50 PM EDT Contract: 195 He started self cath today, did it in the office and everything went well, came home today, attempted between 2 and 3 and could not get urine - maybe a few blood clots, Tried at 5 pm and just tried again just clogged with blood clots, Only an inch or two of blood clots come out, have used about 4 of the catheters and starting to feel pressure- last time urine was obtained by self cath was at 11 am- Reason for Disposition New-onset MILD-MODERATE lower abdominal pain or swelling (distention) Protocols used: Urinary Catheter (e.g., Wiley) Symptoms and Bwskgocuq-L-BU documented in this encounterUK Healthcare04-11-2025 Telephone encounter Note* Telephone Encounter - Maria Esther Skinner RN - 11/07/2024 6:50 PM EDT ----- Message from Florinda sent at 11/07/2024 6:49 PM EDT ----- Contract: 195 calling for Rishi. They went to see Dr. Goetz today to self cathter. He did it in the office just fine at 11 am. At 3pm they were leaving to go somewhere they tried it again and couldn't getit in. Now around 5 pm. He had a bunch of pressure and blood clots. Still can't get nothing out. [facility]04-11-2025 Telephone encounter Note* Telephone Encounter - Maria Esther Skinner RN - 11/07/2024 6:50 PM EDT Contract: 195 He started self cath today, did it in the office and everything went well, came home today, attempted between 2 and 3 and could not get urine - maybe a few blood clots, Tried at 5 pm and just tried again just clogged with blood clots, Only an inch or two of blood clots come out, have used about 4 of the catheters and starting to feel pressure- last time urine was obtained by self cath was at 11 am- Reason for Disposition New-onset MILD-MODERATE lower abdominal pain or swelling (distention) Protocols used: Urinary Catheter (e.g., Wiley) Symptoms and Jhdxznpxr-T-QT [facility] RiGHT BRAiN MEDiA [id number] History of Present illness Narrative* Ulises Goetz Jr., MD - 11/07/2024 9:30 AM EDT Images from the original note were not included. [address] [place] [address] [facility] [id number] Patient: Rishi Babcock Date of : 1940 Encounter Date: 11/07/2024 History of Present Illness: Chief Complaint: Benign prostatic hyperplasia with retention. 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 gabapentin (NEURONTIN) 100 mg capsule hydroCHLOROthiazide (HYDRODIURIL) 25 mg tablet Take 1 tablet (25 mg total) by mouth daily. metoprolol succinate XL (TOPROL XL) 50 mg 24 hr tablet Take 1 tablet (50 mg total) by mouth in the morning. kevzvxxp-vufm-UF-calcium &mins (THERAGRAN-M) 9 mg iron-400 mcg tablet Take 1 tablet by mouth inthe morning. omeprazole (PriLOSEC) 40 mg capsule Every morning dutasteride (AVODART) 0.5 mg capsule Take 1 capsule (0.5 mg total) by mouth in the morning. 90 capsule 3 tamsulosin (FLOMAX) 0.4 mg capsule Take 1 capsule (0.4 mg total) by mouth nightly. 180 capsule [...] and vomitting. -per HPI Physical Exam: BP 131/71 Pulse 87 Ht 172.7 cm (5' 8 ) Wt 72.6 kg (160 lb) BMI 24.33 kg/m Alert, pleasant, without signs of acute illness, and in no distress. Respirations unlabored . Skin dry on examination now. Assessment and Plan: Rishi was seen today for follow-up. Diagnoses and all orders for this visit: Urologic disorders Benign prostatic hyperplasia with urinary hesitancy Elevated PSA Other orders - dutasteride (AVODART) 0.5 mg capsule; Take 1 capsule (0.5 mg total) by mouth in the morning. - tamsulosin (FLOMAX) 0.4 mg capsule; Take 1 capsule (0.4 mg total) by mouth nightly. Problem List Unprioritized Urologic disorders - Primary Overview 1. Concern for bleeding tendency without formal evaluation with benign prostatic hyperplasia with difficulty voiding, hesitancy, postvoid dribble, and occasional urge incontinence all progressive since onset of severe polyneuropathy 2021 with marginal help with Flomax 0.4 mg primary care; Urinary retention 500 mL catheterization [facility] 04/13/2024 with subsequent hematuria gross; 10/20/2022 benign prostatic hyperplasia with obstruction 100 g prominent median lobe cystoscopy; [place] 2. elevated PSA negative ultrasound prostate [...] Left lower pole simple renal cyst report [facility] CT 04/14/2024 9. Absent from requested 3 months follow-up from 12/22/2022 until 04/24/2024 10. Urodynamics unobtainable 05/06/2024 secondary to inability to catheterize patient with that catheter Elevated PSA Benign prostatic hyperplasia with urinary hesitancy Follow-up: Patient returns having given further consideration to management of his chronic retention continuing with his indwelling Wiley catheter. Continues on his dutasteride, and recall we had discontinued the Flomax 0.8 mg, because it was not working. We again reviewed options of continued chronic indwelling Wiley catheter change monthly, intermittent catheterization, or consideration for surgical intervention. He would like to try intermittent self catheterization, which is certainly reasonable. Accordingly I prescribed again restarting his Flomax 0.8 mg nightly in the event that he does do some spontaneous voiding. I prescribed again also dutasteride 0.5 mg daily. Discontinue indwelling Wiley catheter. Start intermittent self catheterization 5 times daily and as needed 14 German coude tip catheter given his dramatic median lobe and very large prostate for benign prostatic hyperplasia with chronic retention. Return here 3 months. If he wishes to consider continuing screening for prostate cancer, Iwould not check this until sometime around November to June. We did not review that in full detail again today. I did review multiple telephone messages with patient complaints regarding penile discomfort from his catheter. Theoretically he could also have a suprapubic tube, but in the long run, there would be less morbidity with intermittent catheterization then a suprapubic tube. Urology serviceis the sole provider for the patient's ongoing management of benign prostatic hyperplasia with retention and elevated PSA, [...] or corrected. Thank you for your understanding. * Camila Kidd LPN - 11/07/2024 9:30 AM EDT Pt. Arrives at this office for his follow up with Dr. Colleen MD as well as a regular monthly catheter change. While preparing charts for office visits, this nurse did see that the Pt. Was going to talk to Dr. Colleen MD about ISC. This nurse was rooming the Pt. And did ask if he would like to try this instead of doing another catheter change. Pt. States he would like to try the ISC becausehe is tired of having the catheter. This nurse did let the Pt. See Dr. Colleen MD for his officevisit first to see if this would be right for him. This nurse did discuss this with Dr. Colleen MD after the Pt.'s office visit. Dr. Colleen MD did order ISC five times (5x's) daily with a 14 fr coude catheter d/t the enlarged prostate. This nurse then used the 16 Male [place] Coud Tip (uncoated) to teach the Pt. ISC. Before proceeding with the catheter removal and ISC teaching, Pt. Did request this nurse go get hisWife so that she could be in the room and learn as well just in case. This nurse then went to [facility] to help his into the office and treatment room. After this nurse and the Pt.'s got into the treatment room, Pt.' And 's questions were answered. Pt. Was prepped for catheter removal on the treatment table. This nurse inserted 100 mL NS into the Pt.'s catheter prior to removal.10 mL NS removed from the balloon port. 18 fr coude catheter safely removed with no difficulties. At this time, the nurse had already showed the Pt. A quick YouTube video of the process of male ISC.This nurse then reminded the Pt. Of the process of ISC, he stated he was ready to try it. Pt. Cleaned his hands, then cleaned off his penis with the wipe. Pt. Then removed the catheter from the packaging and lubed the catheter for use. The Pt. Then started to insert the catheter with no difficulties. Pt. Then received a urine return and did successfully cath himself for 175 mL yellow urine. Pt. Then removed the catheter and cleaned himself off. Pt. Then dressed himself. Pt. And have no further questions at this time. Pt. And scheduled his follow up visit with Dr. Colleen MD. Pt. And did help them out to their vehicle for Pt. Safety purposes. Pt. Will call with any ISC questions or concerns. Camila Kidd LPN Ordering Physician: Dr. Colleen MD Supervising Physician: Dr. Colleen MD documented in this encounterUK Healthcare03-28-2025 Miscellaneous Notes* Telephone Encounter - Neeru TgrobertBOYD - 10/24/2024 3:32 PM EDT Pt's calls asking if there is anything that they can put on pt's penis since it is so sore. She says it is the tip of penis and over the foreskin. She says they have tried several things but nothing is really working. * Telephone Encounter - ANGEL Joyner - 10/24/2024 3:32 PM EDT Not sure everything they have tried. They can do Vaseline or Aquaphor ointment. Sometimes this helps. It appears he was suppose to see Dr. Goetz back in 2 months after his last appointment 05/31/2024. He has been seen by treatment nurse for catheter exchange only. I would recommend he be seen in the office with Dr. Goetz. Please schedule him accordingly * Telephone Encounter - Neeru Alcantar CMA - 10/24/2024 3:32 PM EDT Pt's notified. Transferred her to [facility] [place] make appt. documented in this encounterUK Healthcare03-28-2025 Telephone encounter Note* Telephone Encounter - Neeru Alcantar CMA - 10/24/2024 3:32 PM EDT Pt's calls asking if there is anything that they can put on pt's penis since it is so sore. She says it is the tip of penis and over the foreskin. She says they have tried several things but nothing is really working. [facility]03-28-2025 Telephone encounter Note* Telephone Encounter - ANGEL Joyner - 10/24/2024 3:32 PM EDT Not sure everything they have tried. They can do Vaseline or Aquaphor ointment. Sometimes this helps. It appears he was suppose to see Dr. Goetz back in 2 months after his last appointment 05/31/2024. He has been seen by treatment nurse for catheter exchange only. I would recommend he be seen in the office with Dr. Goetz. Please schedule him accordingly [employer] Work Phone: [phone] Telephone encounter Note* Telephone Encounter - Neeru Alcantar CMA - 10/24/2024 3:32 PM EDT Pt's notified. Transferred her to [facility] [place] make appt. [employer]03-21-2025 Chief complaint+Reason for visit Narrative* Chief Complaint Admit Date 3 month f/u/discuss referral October 17, 2024 1:26pm [facility] ER/Discuss BW November 11, 2024 2:48pm ct rt hand November 13, 2024 10: 20am Carpal Tunnel November 21, 2024 10: 59am Carpal Tunnel December 05, 2024 5:44am Reason for Visit Admit Date Cervical spondylosis with radiculopathy October 17, 2024 1:26pm CTS (carpal tunnel syndrome) October 17, 2024 1:26pm Hypercholesterolemia October 17, 2024 1: 26pm Hypertension October 17, 2024 1:2 6pm Lumbar spondylosis with myelopathy October 17, 2024 1:26pm PAD (peripheral artery disease) October 172024 1:26pm Benign prostatic hyperplasia with lower urinary tract symptoms November 11, 2024 2:48pm Cervical spondylosis with radiculopathy November 11, 2024 2:48pm CTS (carpal tunnel syndrome) November 11, 2024 2:48pm Hypertension November 11, 2024 2:4 8pm Lumbar spondylosis with myelopathy November 11, 2024 2:48pm PAD (peripheral artery disease) November 112024 2:48pm Carpal tunnel syndrome of right wrist Ap ril 2024 10:20am Cervical spondylosis November 13, 2024 10 :20am Hx of fusion of cervical spine October 10:20am [facility] Work Phone: 1(656) 510-164803-21-2025 Chief complaint+Reason for visit Narrative * Chief Complaint Admit Date 3 month f/u/discuss referral October 17, 2024 1:26pm [facility]/Discuss BW November 11, 2024 2:48pm ct rt hand November 13, 2024 10: 20am Carpal Tunnel November 21, 2024 10: 59am Carpal Tunnel December 05, 2024 5:44am Carpal Tunnel December 16, 2024 8:11a m 2 wk po carpal tunnel December 18, 2024 11: 03am Reason for Visit Admit Date Cervical spondylosis with radiculopathy October 17, 2024 1:26pm CTS (carpal tunnel syndrome) October 17, 2024 1:26pm Hypercholesterolemia October 17, 2024 1: 26pm Hypertension October 17, 2024 1:2 6pm Lumbar spondylosis with myelopathy October 17, 2024 1:26pm PAD (peripheral artery disease) October 172024 1:26pm Benign prostatic hyperplasia with lower urinary tract symptoms November 11, 2024 2:48pm Cervical spondylosis with radiculopathy November 11, 2024 2:48pm CTS (carpal tunnel syndrome) November 11, 2024 2:48pm Hypertension November 11, 2024 2:4 8pm Lumbar spondylosis with myelopathy November 11, 2024 2:48pm PAD (peripheral artery disease) November 112024 2:48pm Carpal tunnel syndrome of right wrist Ap ril 2024 10:20am Cervical spondylosis November 13, 2024 10 :20am Hx of fusion of cervical spine October 10:20am Carpal tunnel syndrome of right wrist Ma y 2024 11:03am [facility] Work Phone: 1(651) 453-813503-21-2025 Evaluation note* Diagnosis Onset Date Resolution Status Admit Date Cervical spondylosis with radiculopathy acuteMarch 2024 1:26pmCTS (carpal tunnel syndrome)acuteSepch 2024 1:26pmHypercholesterolemiaacuteMarch 2024 1:26pmHypertensionacuteMarch 2024 1:26pmLumbar spondylosis with myelopathyacuteMar2024 1:26pm PAD (peripheral artery disease)deletedOctober 17, 2024 1:26pmBenign prostatic hyperplasia with lower urinary tract symptomsacuteApril 2024 2:48pm Cervical spondylosis with radiculopathyacuteApril 2024 2:48pmCTS (carpal tunnel syndrome)acuteApril 2024 2:48pmHypertensionacuteApril 2024 2:48pmLumbar spondylosis with myelopathyacuteApril 2024 2:48pmPAD (peripheral artery disease)deletedApr2024 2:48pmCarpal tunnel syndrome of right wristacuteApril 2024 10:20amCervical spondylosisacuteApril 2024 10:20amHx of fusion of cervical spineacuteApr2024 10:20am [facility] Work Phone: 1(547) 759-944403-21-2025 Evaluation note* Diagnosis Onset Date Resolution Status Admit Date Cervical spondylosis with radiculopathy acuteMar2024 1:26pmCTS (carpal tunnel syndrome)acuteMar2024 1:26pmHypercholesterolemiaacuteMarch 2024 1:26pmHypertensionacuteMarch 2024 1:26pmLumbar spondylosis with myelopathyacuteMar2024 1:26pm PAD (peripheral artery disease)deletedOctober 17, 2024 1:26pmBenign prostatic hyperplasia with lower urinary tract symptomsacuteApril 2024 2:48pm Cervical spondylosis with radiculopathyacuteApril 2024 2:48pmCTS (carpal tunnel syndrome)acuteApril 2024 2:48pmHypertensionacuteApril 2024 2:48pmLumbar spondylosis with myelopathyacuteApril 2024 2:48pmPAD (peripheral artery disease)deletedApr2024 2:48pmCarpal tunnel syndrome of right wristacuteApr2024 10:20amCervical spondylosisacuteApril 2024 10:20amHx of fusion of cervical spineacuteApril 2024 10:20amCarpal tunnel syndrome of right wristacuteMay 2024 11:03am [facility] Work Phone: 1(341) 429-634903-14-2025 History of Present illness Narrative* Ulises Goetz Jr., MD - 10/10/2024 11:00 AM EDT Pt. Arrived at this office for a regular monthly catheter change. Pt. Was prepped for catheter change with 10 mL NS being taken out of the balloon port, and 18 fr coude catheter being removed with nodifficulties. Catheter tip is in tact. Pt.'s meatus was cleansed with betadine swabs and 2% lidocaine urojet instilled for comfort. #18 fr coude wiley catheter placed without difficulty draining clear yellow urine. 10 cc's to placement balloon. wiley catheter attached to leg bag. Night bag given. Camila Kidd LPN Ordering Physician: Dr. Colleen MD Supervising Physician: Dr. Colleen MD documented in this encounterUK Healthcare02-14-2025 History of Present illness Narrative* Ulises Goetz Jr., MD - 09/12/2024 10:00 AM EST Pt. Arrives at this office and states [...] what he suggests. Pt. Stated he understood. 10mL removed from the balloon port. 18 fr coude catheter removed with no difficulties. The meatus wascleansed with betadine swabs and 2% lidocaine urojet instilled for comfort. #18 fr coude catheter placed without difficulty draining yellow urine. 10 cc's to placement balloon. wiley catheter attached to leg bag. Night bag and leg bag given to take home. Camila Kidd LPN Ordering Physician: Dr. Colleen MD Supervising Physician: Dr. Colleen MD documented in this encounterUK Healthcare01-27-2025 Evaluation note* Diagnosis Onset Date Resolution Status Admit Date Cervical spondylosis with radiculopathy acuteJuluary 2024 1:49pmHypertensionacuteJanuary 2024 1:49pmLumbar spondylosis with myelopathyacuteJuluary 2024 1:49pmOpiate analgesic use agreement existsacuteAugust 25, 2024 1:49pmPrimary osteoarthritis, left shoulderacuteJanuary 2024 1:49pmLeft shoulder paindeletedJuluary 2024 1:49pmCervical spondylosis with radiculopathyacuteSepch 2024 1:26pm HypertensionacuteSepch 2024 1:26pm [facility] Work Phone: 1(239) 981-388701-27-2025 Evaluation note* Diagnosis Onset Date Resolution Status Admit Date Cervical spondylosis with radiculopathy acuteJuluary 2024 1:49pmHypertensionacuteJanuary 2024 1:49pmLumbar spondylosis with myelopathyacuteJuluary 2024 1:49pmOpiate analgesic use agreement existsacuteAugust 25, 2024 1:49pmPrimary osteoarthritis, left shoulderacuteJanuary 2024 1:49pmLeft shoulder paindeletedJanuary 2024 1:49pmCervical spondylosis with radiculopathyacuteMarch 2024 1:26pm CTS (carpal tunnel syndrome)acuteMarch 2024 1:26pmHypercholesterolemia acuteMarch 2024 1:26pmHypertensionacuteMarch 2024 1:26pmLumbar spondylosis with myelopathyacuteMarch 2024 1:26pmPAD (peripheral artery disease)acuteMarch 2024 1:26pmBenign prostatic hyperplasia with lower urinary tract symptomsacuteApril 2024 2:48pmCervical spondylosis with radiculopathyacuteApril 2024 2:48pmCTS (carpal tunnel syndrome)acuteApril 2024 2:48pmHypertensionacuteApril 2024 2:48pmLumbar spondylosis with myelopathyacuteApril 2024 2:48pm [facility] Work Phone: 1(482) 127-871201-27-2025 Evaluation note* Diagnosis Onset Date Resolution Status Admit Date Cervical spondylosis with radiculopathy acuteJanuary 2024 1:49pmHypertensionacuteJanuary 2024 1:49pmLumbar spondylosis with myelopathyacuteJanuary 2024 1:49pmOpiate analgesic use agreement existsacuteJanuary 2024 1:49pmPrimary osteoarthritis, left shoulderacuteJanuary 2024 1:49pmLeft shoulder paindeletedJanuary 2024 1:49pmCervical spondylosis with radiculopathyacuteMarch 2024 1:26pm CTS (carpal tunnel syndrome)acuteMarch 2024 1:26pmHypercholesterolemia acuteMarch 2024 1:26pmHypertensionacuteMarch 2024 1:26pmLumbar spondylosis with myelopathyacuteMarch 2024 1:26pmPAD (peripheral artery disease)deletedSepch 2024 1:26pmBenign prostatic hyperplasia with lower urinary tract symptomsacuteApril 2024 2:48pmCervical spondylosis with radiculopathyacuteApril 2024 2:48pmCTS (carpal tunnel syndrome)acuteApril 2024 2:48pmHypertensionacuteApril 2024 2:48pmLumbar spondylosis with myelopathyacuteApril 2024 2:48pmPAD (peripheral artery disease)deleted November 11, 2024 2:48pmCarpal tunnel syndrome of right wristacuteApril 2024 10:20amCervical spondylosisacuteApril 2024 10:20amHx of fusion of cervical spineacuteApril 2024 10:20am [facility] Work Phone: 1(747) 170-481601-15-2025 History of Present illness Narrative* Sarita Leon [...] physician Dr French MD documented in this encounterUK Healthcare12-16-2024 Evaluation note* Diagnosis Onset Date Resolution Status Admit Date Benign prostatic hyperplasia with lower urinary tract symptoms acuteDecember 2023 2:18pmGastroesophageal reflux disease with esophagitis without hemorrhageacuteDecemb2023 2:18pmHypercholesterolemiaacute July 14, 2024 2:18pmHypertensionacuteDecember 2023 2:18pmLumbar spondylosis with myelopathyacuteDecember 2023 2:18pmMedicare annual wellness visit, subsequentacuteJuly 14, 2024 2:18pmHypertensionacute August 25, 2024 1:49pmPrimary osteoarthritis, left shoulderacuteJanuary 2024 1:49pm [facility] Work Phone: 1(797) 220-853411-22-2024 History of Present illness Narrative* Ulises Goetz Jr., MD - 06/20/2024 8:45 AM EST Images from the original note were not included. 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 luuwbapy-bmba-OH-calcium &mins (THERAGRAN-M) 9 mg iron-400 mcg tablet [...] primary care; Urinary retention 500 mL catheterization [facility] 04/13/2024 with subsequent hematuria gross; [...] Left lower pole simple renal cyst report [facility] CT 04/14/2024 9. Absent from requested [...] you for your understanding. documented in this [facility]11-20-2024 Miscellaneous Notes* Telephone Encounter - Camila [...] ions at this time. documented in this encounterAshtabula County Medical CenterOrthodata Havenwyck [id number] Telephone encounter Note* Telephone Encounter - Camila [...] No other quest ions at this time. [facility]11-14-2024 [place] [address] EGD Procedure Note Signed Patient: Rishi Babcock MR#: [id number] : 1940 Acct:[id number] Age/Sex: 83 / M Adm Date: 4 Loc: Room: Type: [facility] Attending Dr: Gene Nguyễn MD Copies to: [...] M.D. Documented By: Gene Nguyễn MD 06/12/24 1423 Signed By: 06/12/24 1438 [facility]11-14-2024 [place] [address] Gastroenterology H&P Signed Patient: Rishi Babcock MR#: [id number] : 1940 Acct:[id number] Age/Sex: 83 / M Adm Date: 4 Loc: Room: Type: [facility] Attending Dr: Gene Nguyễn MD Copies to: DO Gene Lundberg MD~ Date of Service: 06/12/2024 HISTORY & [...] Gene Nguyễn MD 06/12/241421 Signed By: 06/12/24 [facility]3 [facility]10-18-2024 Telephone encounter Note* Telephone Encounter - Peyton Mendoza RN - 05/16/2024 10:45 AM EDT TC to pt, notified him the test can be canceled and he verbalized understanding. [facility] central scheduling notified. Order canceled. [facility] Work Phone: 1(792) 857-238010-18-2024 Miscellaneous Notes* Telephone Encounter - Peyton Mendoza RN - 05/16/2024 10:45 AM EDT TC to pt, notified him the test can be canceled and he verbalized understanding. [facility] central scheduling notified. Order canceled. * [...] can cancel it. * Telephone Encounter - Alexanedr Damon MD - 05/16/2024 8:29 AM EDT Advise pt I received his swallowing study reports and he has a severe esophageal narrowing near hisstomach. I spoke with Dr Gaming and Dr Gaming will be arranging for him to see a silver holloware assembler. This is the cause of his sx. No need to F/U with me documented in this encounterShriners Hospitals for [id number] Telephone encounter Note* Telephone Encounter - Alexander Damon MD - 05/16/2024 9:09 AM EDT It can be cancelled [facility] ChildrenCnnrtpzfqm02-18-5707 Telephone encounter Note* Telephone Encounter - Peyton Mendoza RN - 05/16/2024 8:46 AM EDT Pt notified and verbalized understanding. Pt states he has a second swallow test scheduled for 05/21 and is asking he needs to follow thru with it or if he can cancel it. [facility] ChildrenCybyfqrmve56-26-0488 Telephone encounter Note* Telephone Encounter - Alexander Damon MD - 05/16/2024 8:29 AM EDT Advise pt I received his swallowing study reports and he has a severe esophageal narrowing near hisstomach. I spoke with Dr Gaming and Dr Gaming will be arranging for him to see a silver holloware assembler. This is the cause of his sx. No need to F/U with me [facility] for [id number] History of Present illness Narrative* Alexander Damon [...] Active Ambulatory Problems Diagnosis Date Noted A-fib ([facility]) 05/05/2024 Acute blood loss anemia 05/05/2024 Acute lower GI bleeding 05/05/2024 Diverticular hemorrhage 05/05/2024 Rectal bleeding 05/05/2024 Atherosclerosis of [place] arteries of extremities with intermittent claudication, bilateral legs (CMS/[facility]) 05/05/2024 Back pain 05/05/2024 Benign prostatic hyperplasia [...] Primary osteoarthritis, left shoulder 05/05/2024 Sacroiliac inflammation (CMS/HCC) 05/05/2024 Acute urinary retention 05/05/2024 Urologic disorders [...] MBS to eval both. documented in this encounterShriners Hospitals for [id number] History of Present illness Narrative* Ulises Goetz Jr., MD - 05/09/2024 8:30 AM EDT Images from the original note were not included. 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 ekmootty-sonv-UW-calcium &mins (THERAGRAN-M) 9 mg iron-400 mcg tablet [...] primary care; Urinary retention 500 mL catheterization [facility] 04/13/2024 with subsequent hematuria gross; [...] Left lower pole simple renal cyst report [facility] CT 04/14/2024 9. Absent from requested [...] you for your understanding. documented in this encounterUK Healthcare10-08-2024 Miscellaneous Notes* Telephone Encounter - Ulises Goetz [...] you on Sunday. Note documented in this encounterUK Healthcare10-08-2024 Telephone encounter Note* Telephone Encounter - Ulises [...] an appointment with you on Sunday. Note [facility]10-08-2024 Miscellaneous Notes* Telephone Encounter - Ulises Goetz [...] PM) MARY Gee hours ago (1:34 PM) CLAUDE Hernandez from [facility] calls because pt wasn't able [...] with you on Sunday. documented in this encounterUK Healthcare10-08-2024 Telephone encounter Note* Telephone Encounter - Ulises [...] PM) MARY Gee hours ago (1:34 PM) CLAUDE Hernandez from [facility] calls because pt wasn't able to finish his flow study because they had trouble with the catheter and it started bleeding. [facility]10-08-2024 Telephone encounter Note* Telephone Encounter - BRENT Gee - 05/06/2024 4:28 PM EDT I spoke with pt and he said they placed a new wiley. He said his urine is on the darker side. I told him to push the water and that should help. Pt said he has an appointment with you on Sunday. [facility]09-26-2024 History of Present illness Narrative* Ulises Goetz Jr., MD - 04/24/2024 2:15 PM EDT Images from the original note were not included. 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 refpfvle-oitt-YM-calcium &mins (THERAGRAN-M) 9 mg iron-400 mcg tablet [...] primary care; Urinary retention 500 mL catheterization [facility] 04/13/2024 with subsequent hematuria gross; [...] Left lower pole simple renal cyst report [facility] CT 04/14/2024 9. Absent from requested 3 months follow-up from 12/22/2022 until 04/24/2024 Elevated PSA Benign prostatic hyperplasia with urinary hesitancy Follow-up: 05/09/2024 830 a.m. appointment please [place] Patient and return, after extended absence since [...] different emergency department. I REVIEWED THE FOLLOWIN. [facility] emergency department provider note 04/13/2024 lumbar and left-sided back pain with patient on Flomax and saw palmetto catheterized for [address] there indicated spinal stenosis.Urine 20 red cells 250 red cells trace leukocyte esterase. Afebrile. 2. [facility] emergency department provider note 04/14/2024 with complaints [...] nightly and dutasteride 0.5 mg daily. 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 documented in this encounterUK Healthcare09-20-2024 Miscellaneous Notes* Telephone Encounter - Camilajacqueline Kidd LPN - 04/18/2024 2:33 PM EDT In preparation for the Pt.'s visit with Dr. Colleen MD, this nurse contacted medical records and[facility] at [facility] to request all films and visit records. Waiting on records from both hospitals at this time. Films will also be pushed to the [employer] system as well. documented in this encounterUK Healthcare09-20-2024 Telephone encounter Note* Telephone Encounter - Camila Kidd LPN - 04/18/2024 2:33 PM EDT In preparation for the Pt.'s visit with Dr. Colleen MD, this nurse contacted medical records andradiology departments at the [facility] to request all films and visit records. Waiting on records from both hospitals at this time. Films will also be pushed to the [employer] system as well. [facility]09-19-2024 Miscellaneous Notes* Telephone Encounter - Camila Kidd LPN - 04/17/2024 4:39 PM EDT This nurse contacted the Pt. To see what ED's he was seen in to obtain the records for his appointment with Dr. Colleen MD. Pt. Stated he was seen in the [place] ED and also [facility] ED. documented in this encounterUK Healthcare09-19-2024 Telephone encounter Note* Telephone Encounter - Camila Kidd LPN - 04/17/2024 4:39 PM EDT This nurse contacted the Pt. To see what ED's he was seen in to obtain the records for his appointment with Dr. Colleen MD. Pt. Stated he was seen in the [place] ED and also [facility] ED. [facility]08-30-2024 Evaluation note* Diagnosis Onset Date Resolution Status Admit Date Hypertension acuteAugust 2023 11:23amLeft shoulder painacuteAugust 2023 11:23am Lower extremity edemaacuteAugust 2023 11:23amPrimary osteoarthritis, left shoulderacuteAugust 2023 11:23amBenign prostatic hyperplasia with lower urinary tract symptomsacuteSeptember 2023 2:49pmGastroesophageal reflux disease with esophagitis without hemorrhageacuteSeptember 2023 2:49pm HematuriaacuteSeptember 2023 2:49pmHypertensionacuteSeptember 2023 2:49pmLumbar spondylosis with myelopathyacuteSeptember 2023 2:49pmBack paininactiveSeptember 2023 2:49pmAchalasia of esophagusacuteOctober 2023 11:42amEsophageal dysphagiaacuteOctober 2023 11:42amGastroesophageal reflux disease with esophagitis without hemorrhageacuteOctober 2023 11:42amHypertensionacuteOctober 2023 11:42amLumbar spondylosis with myelopathyacuteOctober 2023 11:42am [facility] Work Phone: 1(176) 454-939305-04-2024 Progress note Author Asim Mathur [facility] December 01, 2023 8:56amNote Date/TimeMay 2023 8:56[place] [address] Gastroenterology PN Signed Patient: Rishi Babcock MR#: [id number] : 1940 Acct:[id number] Age/Sex: 83 / M Adm Date: 4 Loc: Room: [address] [place] [address] Type: ADM IN Attending Dr: George Romero [...] signed by Asim Mathur MD> 12/01/23 0856 [facility] Work Phone: 1(642) 874-359105-03-2024 Progress note Author George Romero [facility] November 30, 2023 1:31pmNote Date/TimeMay 2023 11:35[place] [address] Hospitalist Progress Note Signed Patient: Rishi Babcock MR#: [id number] : 1940 Acct:[id number] Age/Sex: 83 / M Adm Date: 4 Loc: Room: [address] [place] [address] Type: ADM IN Attending Dr: George Romero [...] of care and confirmed it with the re sident/student/SUPERVISOR ELECT[employer]ESSING. Patient is seen and evaluated on 4 progressive. Patient states that he is not doing great this morning. He he noted some blood in his urine. It is unsure whether or not he showed this to nurses. He states this started yesterday and has continued into today. He denies any pain. Hoyxg-qn-jdmu ultrasound was performed and demonstrated approximately 450 [...] overflow/prostamegaly Chronic prostamegaly with outpatient urologist in [place], has been recommended prostate procedure Currently on [...] signed by George Romero MD> 11/30/23 1331 [facility] Work Phone: 1(746) 406-745205-03-2024 Consult note Author Syed Buchanan [facility] November 30, 2023 12:18pmNote Date/TimeMay 2023 12:18pm[place] [address] Urology Consult Note Signed Patient: Rishi Babcock MR#: [id number] : 1940 Acct:[id number] Age/Sex: 83 / M Adm Date: 4 Loc: Room: [address] [place] [address] Type: ADM IN Attending Dr: George Romero MD Copies to: MD Cameron Duffy DO Christopher S Reese, MD~ History of Present Illness Consult Details Consult Date: 11/30/2023 Reason for Urology Consult: Obstructive uropathy Requesting Provider: George Romero MD HPI: 83 yo long hx of bph and elevated psa sees dr goetz in [place] on flomax daily and had a negative prostate biopsy a few yrs ago for psa 13 now adm with bloody stools and diahrrea and has incomplete emptying and is refusing wiley asked to see Review of Systems Gastrointestinal Gastrointestinal: Reports diarrhea and Reports hematochezia Genitourinary Genitourinary: Reports difficulty urinating, Reports hematuria, Reports urinary frequency, Reports urinary incontinence and Reports urinary urgency [facility] Medical History (Updated 11/30/23 @ 12:17 by Syed Buchanan MD) Urinary retention due to benign prostatic hyperplasia pt refusing wiley presently Hypertension Chronic kidney disease (CKD) Lumbar spondylosis Hypercholesterolemia Atherosclerosis of [place] arteries of extremities with intermittent claudication, bilateral legs Unspecified atrial flutter Tongue lesion Supraventricular tachycardia Spondylosis without myelopathy or radiculopathy, lumbar region (04/05/17) Other spondylosis with myelopathy, lumbar region Other spondylosis with myelopathy, cervical region 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 Motor neuron disease Iron [...] % (Auto) 65.8, Lymph % (Auto) 22.7, Mckean % (Auto) 9.2, Eos % (Auto) 1.6, Baso % (Auto) 0.7, Nucleat RBC Rel Count 0.1, Neut # (Auto) 4.8, Lymph # (Auto) 1.7, Mckean # (Auto) 0.7, Eos # (Auto) 0.1, Baso # (Auto) 0.0, PT 11.5, INR1.0, APTT 35.6, PHA Creatinine Clear 57.83, Sodium 139, Potassium 4.1, Chloride 105, Carbon Dioxide 27.3,Anion Gap 10.8, BUN 19, Creatinine 0.92, Est GFR (CKD-EPI) > 60.0, Glucose 83, Calcium 9.1, Magnesium 1.4 L, Total Bilirubin 1.4 H, Direct Bilirubin 0.20 H, Indirect Bilirubin 1.2, AST 21, ALT 13,Alkaline Phosphatase 117 H, Total Protein 5.4 L, [...] add dutasteride and up flomax to 0.8mg dailyand needs out pt gu follow up Documented By: Syed Buchanan MD 11/30/23 1211 Signed By: <Electronically signed by Syed Buchanan MD> 11/30/23 1218 [facility] Work Phone: 1(524) 970-157805-02-2024 Progress note Author George Romero [facility] November 29, 2023 12:35pmNote Date/TimeMay 2023 11:34[place] [address] Hospitalist Progress Note Signed Patient: Rishi Babcock MR#: [id number] : 1940 Acct:[id number] Age/Sex: 83 / M Adm Date: 4 Loc: Room: [address] [place] [address] Type: ADM IN Attending Dr: George Romero [...] of care and confirmed it with the re sident/student/SUPERVIS[employer]. Evaluated at bedside. Continues to deny pain. Has had multiple bowel movementswhile here with bloodclots present. 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 Bladder scan by nursing showed around 570 mL postvoid. Gxlbr-dr-ebzr ultrasound also showed 500 mL some time later. Patient does have urologist outpatient who wants him to be seen in [place]. Currently denies dysuria, fever sweats or chills, worsening back pain. Discussed with the patient concern for prolonged urinary retention 500 mL plus and potential long-term damage to kidneys and possible infection. We recommended urinary Wiley to drain the bladder, he refused the Wiley and requested more time to think on accepting the Wiley. Was transferred from [facility] overnight, no other events General: ANO x3, [...] overflow/prostamegaly Chronic prostamegaly with outpatient urologist in [place], has been recommended prostate procedure Currently on [...] Lactated Ringers IV 11/30/23 01:39 75 mls/hr .[id number] SOFY Administration Ondansetron HCl 4 mg 11/28/23 [...] signed by DO EVAN Brown> 11/29/23 1135 [facility] Work Phone: 1(719) 100-883305-02-2024 Progress note Author Asim Mathur [facility] November 29, 2023 12:29pmNote Date/TimeMay 2023 12:29pm[place] [address] Gastroenterology PN Signed Patient: Rishi Babcock MR#: [id number] : 1940 Acct:[id number] Age/Sex: 83 / M Adm Date: 4 Loc: Room: [address] [place] [address] Type: ADM IN Attending Dr: George Romero [...] further bleeding he can be discharged tomorrow. Wewould recommend minimizing NSAID use as able as [...] Lactated Ringers IV 11/30/23 01:39 75 mls/hr .[id number] SOFY Administration Magnesium Sulfate 4 gm in [...] further bleeding he can be discharged tomorrow. Wewould recommend minimizing NSAID use as able as this increases risk for diverticular bleeding. He will not need an outpatient GI follow-up. You for this consult, I will peripherally follow Documented By: Asim Mathur MD 11/29/231225 Signed By: <Electronically signed by Asim Mathur MD> 11/29/23 1229 [facility] Work Phone: 1(826) 788-877405-02-2024 Consult note Author Asim Mathur [facility] November 29, 2023 8:31amNote Date/TimeMay 2023 8:13[place] [address] Gastroenterology Consult Note Signed Patient: Rishi Babcock MR#: [id number] : 1940 Acct:[id number] Age/Sex: 83 / M Adm Date: 4 Loc: Room: [address] [place] [address] Type: ADM IN Attending Dr: George Romero MD Copies to: MD Cameron Duffy DO Cameron J Ditty, MD~ HPI Data of Consult Date of Consultation: 11/29/23 Requesting Physician: George Romero MD Consult Narrative History of present illness: Mr. Babcock is a 83 year old male who was transferred from outside hospital for diverticular bleed.Patient known to the GI service here and underwent a workupfor iron deficiency anemia by my partnerDr. Nguyễn last fall, only demonstratinggastric erosions, H. [...] blood and formed stool. He is not havingas much urgency and not having tenesmus at [...] Denies easy bruising and Denies lymphadenopathy [facility] Medical History (Updated 11/29/23 @ 08:31 by Asim Mathur MD) Hypertension Chronic kidney disease (CKD) Lumbar spondylosis Hypercholesterolemia Atherosclerosis of [place] arteries of extremities with intermittent claudication, bilateral legs Unspecified atrial flutter Tongue lesion Supraventricular tachycardia Spondylosis without myelopathy or radiculopathy, lumbar region (04/05/17) Other spondylosis with myelopathy, lumbar region Other spondylosis with myelopathy, cervical region 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 Motor neuron disease Iron [...] MPV Neut % (Auto) Lymph % (Auto) Mckean % (Auto) Eos % (Auto) Baso % (Auto) Nucleat RBC Rel Count Neut # (Auto) Lymph # (Auto) Mckean # (Auto) Eos # (Auto) Baso # [...] % (Auto) 65.8 Lymph % (Auto) 22.7 Mckean % (Auto) 9.2 Eos % (Auto) 1.6 Baso % (Auto) 0.7 Nucleat RBC Rel Count 0.1 Neut # (Auto) 4.8 Lymph # (Auto) 1.7 Mckean # (Auto) 0.7 Eos # (Auto) 0.1 [...] signed by Asim Mathur MD> 11/29/23 0831 [facility] Work Phone: 1(505) 329-789305-02-2024 History and physical note Author Lane Carlos [facility] November 29, 2023 12:14amNote Date/TimeMay 2023 11:13pm[place] [address] Hospitalist H&P Signed Patient: Rishi Babcock MR#: [id number] : 1940 Acct:[id number] Age/Sex: 83 / M Adm Date: 4 Loc: Room: [address] [place] [address] Type: ADM IN Attending Dr: Falguni Brasher MD Copies to: DO Lane Lundberg DO Obaydah M Daromar, MD Paula G Smith, RESIDENTIAL DESIGNER~ HPI DATE OF EXAMINATION: 11/28/23 CHIEF COMPLAINT: bloody stools HISTORY OF PRESENT ILLNESS: Mr. Babcock is an 83-year-old male with a PMH of A-fib, abrasion years ago not on anticoagulation, severe polyneuropathy, HTN, iron deficiency anemia, GERD, SVT, spondylosis, tobacco dependence?dailycigar smoker that presented to the [facility] emergency room for bloody stools. Patient states [...] at night and sometimes will have 2 atlunch. He states he has never had a blood transfusion before, never had bloody bowel movements in the past. 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 EKG is sinus rhythm [...] noted in the HPI or below. [facility] Medical History (Updated 11/28/23 @ 23:36 by Bárbara Ramirez APRN) Hypertension Chronic kidney disease (CKD) Lumbar spondylosis Hypercholesterolemia Atherosclerosis of [place] arteries of extremities with intermittent claudication, bilateral legs Unspecified atrial flutter Tongue lesion Supraventricular tachycardia Spondylosis without myelopathy or radiculopathy, lumbar region (04/05/17) Other spondylosis with myelopathy, lumbar region Other spondylosis with myelopathy, cervical region Other custodial (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 Motor neuron disease Iron [...] lot of problems with neuropathy that affects bothof his legs and this makes it difficult for him to control his defecation so he says that for many years he has been always having to contract his abdominal muscles in order to have a bowel movement.He believes that he had a colonoscopy within the last year or 2, and he describes getting an EGD and even a video capsule endoscopy. He cannot remember where he got them done but thinks it may have been in [place]. This patient was seen before midnight on November 27. My signature on this documentoccurred after midnight and in the furniture refinisher hours of November 28 due to EHR [...] setting as: INPATIENT because of an expectation ofan over 2 midnight stay. Estimated length of stay (# of days): 3 Documented By: Bárbara Ramirez APRN 11/28/23 2313 Signed By: <Electronically signed by AUSTEN Ramirez> 11/28/23 8677 <Electronically signed by Lane Carlos DO> 11/29/23 0014 [facility] Work Phone: 1(648) 690-734112-13-2023 Evaluation note* Encounter Date Diagnosis Assessment Notes [...] reviewed and amended by provider signed below. Jun,rimary hypertension (ICD-10 - I10)This patient is instructed to consume a healthy, low-fat, low-salt diet. They are also encouraged to continue exercise to achieve/maintain a normal BMI. Jun,enign prostatic hyperplasia with lower urinary tract symptoms (ICD- 10 - N40.1)Referred to - offered procedure but declined - symptoms tolerable at this time Jun,Feeling of incomplete bladder emptying (ICD-10 - R39.14) Jun,Lumbosacral spondylosis with myelopathy (ICD-10 - M47.16)The patient is instructed to avoid bending, twisting or lifting. They are to use intermittent heat and ice as needed. They may schedule a massage or gentle manipulation. They may safely use Tylenol as needed. Jun,ervical spondylosis with radiculopathy (ICD-10 - M47.22)ROM exercises, heat/ice and Tylenol. Jun,astroesophageal reflux disease with esophagitis without hemorrhage (ICD-10 - K21.00)Diet instructions: Smaller portions, avoid eating and laying flat, avoid eating or drinking prior to bedtime. Weight loss. PPI [facility] Other 12-03-2023 Evaluation note* Encounter Date Diagnosis Assessment Notes Treatment Notes Treatment Clinical Notes Jun, Primary hypertension (ICD-10 - I 10) [facility] Other 2023 Evaluation note* Encounter Date Diagnosis Assessment Notes Treatment Notes Treatment Clinical Notes Feb, Dehydration (ICD-10 - E86.0) Instructed to increase fluid intake, minimum 48oz daily but closer to 64oz recommended. Monitor BP at home. Feb,cute prostatitis without hematuria (ICD-10 - N41.0)He is experiencing symptoms that could be related to lower UTI Push fluids, minimum 48oz Initiate antibiotics Feb,rimary hypertension (ICD-10 - I10)This patient is instructed to consume a healthy, low-fat, low-salt diet. They are also encouraged to continue exercise to achieve/maintain a normal BMI. Restart Lisinopril and monitor BP at home. _update in couple weeks Feb,cute superficial gastritis with hemorrhage (ICD-10 - K29.01) Completed EGD but report not available. d/c [place] 2 Instructed to avoid OTC NSAIDs Initiated on PPI by GI Feb,enign prostatic hyperplasia with lower urinary tract symptoms (ICD- 10 - N40.1)Continue treatment per Urology. f/u w/ Urology Feb,Feeling of incomplete bladder emptying (ICD-10 - R39.14)Continue Flomax and f/u w/ Urology Feb,arpal tunnel syndrome of left wrist (ICD-10 - G56.02)Use cock up splints at night. Completed EMG w/ GILDA, recommend f/u appt. Gabapentin may be beneficial if not surgical condition Feb,Lumbosacral spondylosis with myelopathy (ICD-10 - M47.16)The patient is instructed to avoid bending, twisting or lifting. They are to use intermittent heat and ice as needed. They may schedule a massage or gentle manipulation. They may safely use Tylenol as needed. Fall precautions. Feb,ervical spondylosis with radiculopathy (ICD-10 - M47.22)ROM exercises, heat/ice and Tylenol. f/u Neurology w/ suggestion w/ referral to Neurosurgery [facility] [employer] Other 07-31-2023 History and physical note Author Gene Nguyễn [facility] February 26, 2023 9:20amNote Date/TimeJuly 2022 9:20[place] [address] Gastroenterology H&P Signed Patient: Rishi Babcock MR#: [id number] : 1940 Acct:[id number] Age/Sex: 82 / M Adm Date: 3 Loc: Room: Type: [facility] Attending Dr: Gene Nguyễn MD Copies to: [...] <Electronically signed by Gene Nguyễn MD> 02/26/23919 [facility] Work Phone: 1(133) 154-543007-31-2023 [facility]* Encounter Date Diagnosis Assessment Notes Treatment Notes Treatment Clinical Notes Jan, Superficial abrasion (ICD-10 - T 14.8XXA) Keep clean Cleanse w/ soap and water Jan,Insect bite (nonvenomous), right lower leg, initial encounter (ICD- 10 - S80.861A)Keep clean and dry Jan,itten or stung by nonvenomous insect and other nonvenomous arthropods, initial encounter (ICD-10 -W57.XXXA)Tick vs spider bite Treat w/ antibiotics for [employer] Other 06-06-2023 Evaluation note* Encounter Date Diagnosis Assessment Notes Treatment Notes Treatment Clinical Notes Dec, Primary hypertension (ICD-10 - I 10) This patient is instructed to consume a healthy, low-fat, low-salt diet. They are also encouraged to continue exercise to achieve/maintain a normal BMI. Dec,Iron deficiency anemia due to chronic blood loss (ICD-10 - D50.0)No obvious source of bleeding. Overdue for screening colonoscopy - last scope in 2016 w/ recommendations to repeat in 5 years Recommend EGD to r/o PUD, gastritis or esophagitis Dec,Lumbosacral spondylosis with radiculopathy (ICD-10 - M47.27)f/u Neurology Completed MRI cervical/lumbar spine Completed UE/LE EMG/NCS Fall precautions, recommend use of cane/walker for stability Dec,enign prostatic hyperplasia with lower urinary tract symptoms (ICD- 10 - N40.1)Discussed increasing Flomax to bid. f/u Urology Dec,Feeling of incomplete bladder emptying (ICD-10 - R39.14)Discussed surgical treatment, which may result in worsening incontinence. Difficult decision. Dec,ross hematuria (ICD-10 - R31.0)Completed cystoscopy, no explanation for gross hematuria Dec,Elevated PSA (ICD-10 - R97.20)MRI w/o suspicious nodule. 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 Plan EGD and colonoscopy later this summer. Recommend d/c NSAIDs and COX2 and use Tylenol for pain Oct,rimary hypertension (ICD-10 - I10)This patient is instructed to consume a healthy, low-fat, low-salt diet. They are also encouraged to continue exercise to achieve/maintain a normal BMI. Oct,Lumbosacral spondylosis with radiculopathy (ICD-10 - M47.27)The patient is instructed to avoid bending, twisting or lifting. They are to use intermittent heat and ice as needed. They may schedule a massage or gentle manipulation. They may safely use Tylenol as needed. Oct,ervical spondylosis with myelopathy (ICD-10 - M47.12)ROM exercises, ice/heat and Tylenol Oct,enign prostatic hyperplasia with lower urinary tract symptoms (ICD- 10 - N40.1)Continue Flomax Awaiting MRI and cystoscopy report. Discussed BPH and treatment: Rx meds, Rezum, Urolift and TURP Discussed prostate cancer: MRI/bx and Mae score/grouping and treatment options Oct,Elevated PSA (ICD-10 - R97.20)BPH vs Prostate cancer discussed. 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 Jul,Idiopathic peripheral neuropathy (ICD-10 - G60.9) [facility] Other evaluation noteNo InformationNort [employer] Other Evaluation noteNo assessment information available [facility] Work Phone: Evaluation note* Diagnosis Onset Date Resolution Status Benign prostatic hyperplasia with lower urinary tract symptoms acuteCervical spondylosis with radiculopathyacuteChronic kidney disease (CKD) acuteCTS (carpal tunnel syndrome)acuteLeft foot dropacuteLumbar spondylosisacute Sacroiliac inflammationacuteSevere carpal tunnel syndrome of both wristsacute Spondylolisthesis, lumbar regionacute [facility] Work Phone: Evaluation note* Diagnosis Onset Date Resolution Status Benign prostatic hyperplasia with lower urinary tract symptoms acuteCervical spondylosis with radiculopathyacuteChronic kidney disease (CKD) acuteCTS (carpal tunnel syndrome)acuteLeft foot dropacuteLumbar spondylosisacute Sacroiliac inflammationacuteSevere carpal tunnel syndrome of both wristsacute Spondylolisthesis, lumbar regionacuteCTS (carpal tunnel syndrome)acuteSevere carpal tunnel syndrome of both wristsacuteCarpal tunnel syndrome of left wrist acutePre-operative cardiovascular examinationacute [facility] Work Phone: Evaluation note* Diagnosis Onset Date Resolution Status Benign prostatic hyperplasia with lower urinary tract symptoms acuteCervical spondylosis with radiculopathyacuteChronic kidney disease (CKD) acuteCTS (carpal tunnel syndrome)acuteLeft foot dropacuteLumbar spondylosisacute Sacroiliac inflammationacuteSevere carpal tunnel syndrome of both wristsacute Spondylolisthesis, lumbar regionacuteCTS (carpal tunnel syndrome)acuteSevere carpal tunnel syndrome of both wristsacuteCarpal tunnel syndrome of left wrist acutePre-operative cardiovascular examinationacuteA-fibacuteAcute lower GI bleedingacuteBenign prostatic hyperplasia with lower urinary tract symptomsacute Chronic kidney disease (CKD)acuteDiverticular hemorrhageacuteDiverticulosisacute Elevated PSAacuteHypertensionacuteIdiopathic peripheral neuropathyacuteUrinary retention due to benign prostatic hyperplasiaacute [facility] Work Phone: Evaluation note* Diagnosis Onset Date Resolution Status Benign prostatic hyperplasia with lower urinary tract symptoms acuteCervical spondylosis with radiculopathyacuteChronic kidney disease (CKD) acuteCTS (carpal tunnel syndrome)acuteLeft foot dropacuteLumbar spondylosisacute Sacroiliac inflammationacuteSevere carpal tunnel syndrome of both wristsacute Spondylolisthesis, lumbar regionacuteCTS (carpal tunnel syndrome)acuteSevere carpal tunnel syndrome of both wristsacuteCarpal tunnel syndrome of left wrist acuteA-fibacuteAcute lower GI bleedingacuteBenign prostatic hyperplasia with lower urinary tract symptomsacuteChronic kidney disease (CKD)acuteDiverticular hemorrhageacuteDiverticulosisacuteElevated PSAacuteHypertensionacuteIdiopathic peripheral neuropathyacuteUrinary retention due to benign prostatic hyperplasia acuteAcute blood loss anemiaacuteBenign prostatic hyperplasia with lower urinary tract symptomsacuteChronic kidney disease (CKD)acuteDiverticular hemorrhageacute Hypertensionacute [facility] Work Phone: Evaluation note* Diagnosis Onset Date Resolution Status CTS (carpal tunnel syndrome) acuteSevere carpal tunnel syndrome of both wristsacuteCarpal tunnel syndrome of left wristacuteAcute lower GI bleedingresolvedBenign prostatic hyperplasia with lower urinary tract symptomsresolvedDiverticular hemorrhageresolvedAcute blood loss anemiaacuteNausea & vomitingacuteBenign prostatic hyperplasia with lower urinary tract symptomsresolvedDiverticular hemorrhageresolvedAcute blood loss anemiaacuteNausea & vomitingacuteBenign prostatic hyperplasia with lower urinary tract symptomsresolved [facility] Work Phone: Evaluation note* Diagnosis Onset Date Resolution Status Acute blood loss anemia acuteBenign prostatic hyperplasia with lower urinary tract symptomsacute HypertensionacuteLumbar spondylosis with myelopathyacuteHypertensionacuteLeft shoulder painacutePrimary osteoarthritis, left shoulderacute [facility] Work Phone: Evaluation note* Diagnosis Onset Date Resolution Status Hypertension acuteLeft shoulder painacuteLower extremity edemaacutePrimary osteoarthritis, left shoulderacute [facility] Work Phone: Evaluation note* Diagnosis Onset Date Resolution Status Hypertension acuteLeft shoulder painacuteLower extremity edemaacutePrimary osteoarthritis, left shoulderacuteBenign prostatic hyperplasia with lower urinary tract symptoms acuteHypertensionacuteLumbar spondylosis with myelopathyacute [facility] Work Phone: Evaluation note* Diagnosis Onset Date Resolution Status Hypertension acuteLeft shoulder painacuteLower extremity edemaacutePrimary osteoarthritis, left shoulderacuteBenign prostatic hyperplasia with lower urinary tract symptoms acuteGastroesophageal reflux disease with esophagitis without hemorrhageacute HematuriaacuteHypertensionacuteLumbar spondylosis with myelopathyacute [facility] Work Phone: Evaluation note* Diagnosis Pharyngoesophageal dysphagia- Primary Dysphagia, pharyngoesophageal phase documented in this encounter [facility] Diagnosis Onset Date Resolution Status Hypertension acuteLeft shoulder painacuteLower extremity edemaacutePrimary osteoarthritis, left shoulderacuteBenign prostatic hyperplasia with lower urinary tract symptoms acuteGastroesophageal reflux disease with esophagitis without hemorrhageacute HematuriaacuteHypertensionacuteLumbar spondylosis with myelopathyacuteBenign prostatic hyperplasia with lower urinary tract symptomsacuteEsophageal dysphagia acuteGastroesophageal reflux disease with esophagitis without hemorrhageacute HypertensionacuteLumbar spondylosis with myelopathyacute [facility] Work Phone: Evaluation note* Diagnosis Benign prostatic hyperplasia with urinary hesitancy- Primary [facility] Diagnosis Urologic disorders- Primary Unspecified disorder of urethra and urinary tract Benign prostatic hyperplasia with urinary hesitancy Elevated PSA Elevated prostate specific antigen (PSA) documented [facility] Diagnosis Urinary retention- Primary Unspecified retention of urine Urologic disorders Unspecified disorder of urethra and urinary tract Benign prostatic hyperplasia with urinary hesitancy Elevated PSA Elevated prostate specific antigen (PSA) documented [facility] encounter [facility] Diagnosis Elevated PSA- Primary Elevated prostate specific antigen (PSA) Benign prostatic hyperplasia with urinary hesitancy Urologic disorders Unspecified disorder of urethra and urinary tract documented [facility] this encounter [facility] Diagnosis Urologic disorders- Primary Unspecified disorder of urethra and urinary tract Benign prostatic hyperplasia with urinary hesitancy Elevated PSA Elevated prostate specific antigen (PSA) documented in this encounter [facility]* Diagnosis Benign prostatic hyperplasia with urinary hesitancy- Primary [facility] encounter [facility] Diagnosis Benign prostatic hyperplasia with urinary hesitancy- Primary documented [facility] encounter [facility]* Diagnosis Benign prostatic hyperplasia with urinary hesitancy- Primary documented in this encounter [facility]History and physical note Author Gene Nguy[facility]n [facility] CenterNote Date/TimeNovember 2023 2:23pm [place] [address] Gastroenterology H&P Signed Patient: Rishi Babcock MR#: [id number] : 1940 Acct:[id number] Age/Sex: 83 / M Adm Date: 4 Loc: Room: Type: [facility] Attending Dr: Gene Nguyễn MD Copies to: DO Gene Lundberg MD~ Date of Service: 06/12/2024 HISTORY & [...] signed by Gene Nguyễn MD> 06/12/24 1423 [facility] Work Phone: History general Narrative - Reported* Type Description Date Medical History hypertension Medical HistoryArthritisMedical HistoryAtrial fibrillationSurgical History cataract extractionSurgical HistorycolonoscopySurgical Historycyst removal Surgical Historyprostate biopsySurgical Historyear reconstructionSurgical Historyleg surgery, fx RT distal tib/fibSurgical HistorytonsillectomySurgical Dtnpnzsdohrcrpxvmh51/2017Surgical Historye/o tongue lesion, Timmis04/01/2019 Hospitalization HistorySee Above [facility] Other History general Narrative - Reported* Type Description Date Medical History hypertension Medical HistoryArthritisMedical HistoryAtrial fibrillationSurgical History cataract extractionSurgical HistorycolonoscopySurgical Historycyst removal Surgical Historyprostate biopsySurgical Historyear reconstructionSurgical Historyleg surgery, fx RT distal tib/fibSurgical HistorytonsillectomySurgical Cokragpzismrzsyggo73/2017Surgical Historye/o tongue lesion, Timmis04/01/2019 Surgical HistoryCystoscopy3/2022Hospitalization HistorySee Above [facility] Other History general Narrative - [facility]Nob[facility] [employer] Other History general Narrative - Reported* Type Description Date Medical History hypertension Medical HistoryArthritisMedical HistoryAtrial fibrillationSurgical History cataract extractionSurgical HistorycolonoscopySurgical Historycyst removal Surgical Historyprostate biopsySurgical Historyear reconstructionSurgical Historyleg surgery, fx RT distal tib/fibSurgical HistorytonsillectomySurgical Lcsookcthyziggsorc73/2016Surgical Historye/o tongue lesion, s04/01/2019 Surgical HistoryCystoscopy3/2022Surgical HistoryEGD7/2022Surgical History Colonoscopy7/2022Hospitalization HistorySee Above [facility] Other Hospital Discharge instructions Additional Instructions DISCHARGE [...] 40 mg daily 30 minutes before breakfast [facility] Work Phone: Hospital Discharge instructions Additional Instructions [...] see your physician in two weeks. [ ][facility] Work Phone: Hospital Discharge instructions Additional Instructions Follow-up with your urologist Return as needed Take your Vicodin prescription and get it filled and take as needed for pain [facility] Work Phone: Hospital Discharge instructionsAmbulatory Orders* Referral to ENT Time Frame: 04/24/24, Location: None Selected [facility] Work Phone: Hospital Discharge instructions Additional [...] appointment to see your physician in two weeks.[facility] Work Phone: InstructionsNot on filedocumented in this encounter [employer] SystemInstructionsNot on filedocumented in this encounter [facility] [...] Colon cancer screeni ng (Z12.11) Referral Organization [facility] mónica Referring Provider First Name Cameron Referring Provider Last Name Mekhi Referring Provider Specialty Internal Me dicine Referred Organization [facility] Referred Provider Gene Nguyễn Referred Address [address] [place], [place],[address] Referred Provider Specialty Gastroentero logy Referral Priority [...] 01/03/2023 12:47:36 PM >received today, sent P2P [facility] [employer] Other Reason for referral (narrative)No reason for referral information availableUniversity [facility]als [facility] Work Phone: Reason for Referral Reason Evaluate LLE EM G Diagnosis 1 Idiopathic periphera l neuropathy (G60.9) Referral Organization [facility] urosurgery Referring Provider First Name Hiren Referring Provider Last Name Rekha Referring Provider Specialty Neurosurger y Referred Organization [facility] Referred Provider Syed Ireland Referred Address [address], [place],[address] Referred Provider Specialty Neurology Referral Priority Routine General Notes Geri Garayh 12/2021 11:59:35 AM >Received today will send once note is locked Reason Evaluate and Tr eat Diagnosis 1 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) Referral Organization [facility] urosurgery Referring Provider First Name Hiren Referring Provider Last Name Rekha Referring Provider Specialty Neurosurger y Referred Organization [facility] Referred Provider Raul Orellana Referred Address [address], [place],[address] Referred Provider Specialty Neurology Referral Priority Routine General Notes Chelle Garcia 022 02:51:14 PM >Received today and waiting for office notes to be locked SpecialtyDiagnoses / ProceduresReferred By ContactReferred To Contact Diagnoses Urinary retention Procedures Cystometrogram Ulises Goetz Jr., MD [address] [place] [address] Referral IDStatusReasonStart DateExpiration DateVisits RequestedVisits [id number] Review/ Summary Purpose Family History No Family History Records Found Relationship Condition Age at Onset Recorded Date/T garcia Not Specified Leukemia Unknown fatherHeart problemUnknownbrotherDiabetes mellitusUnknownsisterDiabetes mellitus UnknownbrotherMalignant neoplasm of colonUnknown Relationship Condition Age at Onset Recorded Date/T garcia Not Specified Leukemia Unknown fatherHeart problemUnknownbrotherDiabetes mellitusUnknownsisterDiabetes mellitus UnknownbrotherMalignant neoplasm of colonUnknownfatherHeart diseaseUnknown DeceasedUnknownNot SpecifiedDeceasedUnknownMalignant neoplasmUnknownLeukemia Unknown Relationship Condition Age at Onset Recorded Date/T garcia Not Specified Leukemia Unknown Malignant neoplasmUnknownDeceasedUnknownfatherHeart problemUnknownHeart disease UnknownbrotherDiabetes mellitusUnknownsisterDiabetes mellitusUnknownbrother Malignant neoplasm of colonUnknown Relationship Condition Age at Onset Recorded Date/T garcia mother Leukemia Unknown Malignant neoplasmUnknownDeceasedUnknownfatherHeart problemUnknownHeart disease UnknownbrotherDiabetes mellitusUnknownsisterDiabetes mellitusUnknownbrother Malignant neoplasm of colonUnknown Relationship Condition Age at Onset Recorded Date/T garcia mother Leukemia Unknown DeceasedUnknownfatherHeart diseaseUnknownbrotherDiabetes mellitusUnknownsister Diabetes mellitusUnknownbrotherMalignant neoplasm of colonUnknown Advance Directives No Advanced Directives Records Found Advance Directive Response Recorded Date/ Time Advance Directives No January 11 2:49pm Advance Directive Response Recorded Date/ Time Advance Directives No January 11 1:49pm Chief Complaint and Reason for Visit Chief Complaint Iron Deficiency Anem ia, Screening Chief Complaint Check Up Ref Dr Gaming, spondylosis and carpal tunnel m43.16 m47.816Reason for VisitBenign prostatic hyperplasia with lower urinary tract symptoms Cervical spondylosis with radiculopathy Chronic kidney disease (CKD) CTS (carpal tunnel syndrome) Left foot drop Lumbar spondylosis Sacroiliac inflammation Severe carpal tunnel syndrome of both wrists Spondylolisthesis, lumbar region Chief Complaint Check Up Ref christine Galarza and carpal tunnel m43.16 m47.816 f/u left CTRReason for VisitBenign prostatic hyperplasia with lower urinary tract symptoms Cervical spondylosis with radiculopathy Chronic kidney disease (CKD) CTS (carpal tunnel syndrome) Left foot drop Lumbar spondylosis Sacroiliac inflammation Severe carpal tunnel syndrome of both wrists Spondylolisthesis, lumbar region Chief Complaint Check Up Ref Dr Gaming spondylrocky and carpal tunnel m43.16 m47.816 f/u left CTR Surgical Clearance for Carpal Tunnel Surgery 11/15Reason for VisitBenign prostatic hyperplasia with lower urinary tract symptoms Cervical spondylosis [...] for Carpal Tunnel Surgery 11/15 Carpal Tunnel SyndromeReason for VisitBenign prostatic hyperplasia with lower urinary tract symptoms Cervical spondylosis [...] Surgery 11/15 Carpal Tunnel Syndrome Carpal Tunnel SyndromeReason for VisitBenign prostatic hyperplasia with lower urinary tract symptoms Cervical spondylosis [...] Tunnel Syndrome Rectal bleed/divertivular bleed Rectal bleed/divertivular bleedReason for VisitBenign prostatic hyperplasia with lower urinary tract symptoms Cervical spondylosis [...] hyperplasia Chief Complaint Check Up Ref Dr Gaming spondylosis and carpal tunnel m43.16 m47.816 f/u left CTR Surgical Clearance for Carpal Tunnel Surgery 11/15 Carpal Tunnel Syndrome Carpal Tunnel Syndrome Rectal bleed/divertivular bleed Rectal bleed/divertivular bleed Amb [place] [facility] [place] follow upReason for VisitBenign prostatic hyperplasia with lower urinary tract symptoms Cervical spondylosis [...] bleed/divertivular bleed Rectal bleed/divertivular bleed Amb Documentation [facility] [place] follow up 6 month follow upReason for VisitCTS (carpal tunnel syndrome) Severe carpal tunnel syndrome [...] Complaint 6 month follow up left shoulder injectionReason for VisitAcute blood loss anemia Benign prostatic hyperplasia with lower urinary tract symptoms Hypertension Lumbar spondylosis with myelopathy Hypertension Left shoulder pain Primary osteoarthritis, left shoulder Chief Complaint left shoulder inject ion cath issuesReason for VisitHypertension Left shoulder pain Lower extremity edema Primary osteoarthritis, left shoulder Chief Complaint left shoulder inject ion cath issues back painReason for VisitHypertension Left shoulder pain Lower extremity edema Primary osteoarthritis, left shoulder Benign prostatic hyperplasia with lower urinary tract symptoms Hypertension Lumbar spondylosis with myelopathy Chief Complaint left shoulder inject ion cath issues back painReason for VisitHypertension Left shoulder pain Lower extremity edema Primary osteoarthritis, left shoulder Benign prostatic hyperplasia with lower urinary tract symptoms Gastroesophageal reflux disease with esophagitis without hemorrhage Hematuria Hypertension Lumbar spondylosis with myelopathy Chief Complaint left shoulder inject ion cath issues back pain discuss recent testing resultsReason for VisitHypertension Left shoulder pain Lower extremity edema Primary [...] 18, 2024 2:49pm Lumbar spondylosis with myelopathy [facility] 2023 2:49pm Back pain April 18, 2024 [...] 2023 2:18pm Medicare annual wellness visit, leni nt July 14, 2024 2:18pm Hypertension August 25, 2024 1 :49pm Primary osteoarthritis, left shoulder Ted kim 2024 1:49pm Chief Complaint Admit Date shoulder injection August 25, 2024 1 :49pm 3 month f/u/discuss referral October 17, 2024 1:26pm Reason for Visit Admit Date Cervical spondylosis with radiculopathy August 25, 2024 1:49pm Hypertension August 25, 2024 1 :49pm Lumbar spondylosis with myelopathy Jul 2024 1:49pm Opiate analgesic use agreement exists Ted kim 2024 1:49pm Primary osteoarthritis, left shoulder Ted kim 2024 1:49pm Left shoulder pain August 25, 2024 1 :49pm Cervical spondylosis with radiculopathy October 17, 2024 1:26pm Hypertension October 17, 2024 1:2 6pm Chief Complaint Admit Date shoulder injection August 25, 2024 1 :49pm 3 month f/u/discuss referral October 17, 2024 1:26pm [facility]/Discuss BW November 11, 2024 2:48pm Reason for Visit Admit Date Cervical spondylosis with radiculopathy August 25, 2024 1:49pm Hypertension August 25, 2024 1 :49pm Lumbar spondylosis with myelopathy Jul 2024 1:49pm Opiate analgesic use agreement exists Ted valladaresrutledge 2024 1:49pm Primary osteoarthritis, left shoulder Ted kim 2024 1:49pm Left shoulder pain August 25, 2024 1 :49pm Cervical spondylosis with radiculopathy October 17, 2024 1:26pm CTS (carpal tunnel syndrome) October 17, 2024 1:26pm Hypercholesterolemia October 17, 2024 1: 26pm Hypertension October 17, 2024 1:2 6pm Lumbar spondylosis with myelopathy October 17, 2024 1:26pm PAD (peripheral artery disease) October 172024 1:26pm Benign prostatic hyperplasia with lower urinary tract symptoms November 11, 2024 2:48pm Cervical spondylosis with radiculopathy November 11, 2024 2:48pm CTS (carpal tunnel syndrome) November 11, 2024 2:48pm Hypertension November 11, 2024 2:4 8pm Lumbar spondylosis with myelopathy November 11, 2024 2:48pm Chief Complaint Admit Date shoulder injection August 25, 2024 1 :49pm 3 month f/u/discuss referral October 17, 2024 1:26pm [facility]/Discuss BW November 11, 2024 2:48pm ct rt hand November 13, 2024 10: 20am Carpal Tunnel November 21, 2024 10: 59am Reason for Visit Admit Date Cervical spondylosis with radiculopathy August 25, 2024 1:49pm Hypertension August 25, 2024 1 :49pm Lumbar spondylosis with myelopathy Lavern arrington 2024 1:49pm Opiate analgesic use agreement exists Ted kim 2024 1:49pm Primary osteoarthritis, left shoulder Ted kim 2024 1:49pm Left shoulder pain August 25, 2024 1 :49pm Cervical spondylosis with radiculopathy October 17, 2024 1:26pm CTS (carpal tunnel syndrome) October 17, 2024 1:26pm Hypercholesterolemia October 17, 2024 1: 26pm Hypertension October 17, 2024 1:2 6pm Lumbar spondylosis with myelopathy October 17, 2024 1:26pm PAD (peripheral artery disease) October 172024 1:26pm Benign prostatic hyperplasia with lower urinary tract symptoms November 11, 2024 2:48pm Cervical spondylosis with radiculopathy November 11, 2024 2:48pm CTS (carpal tunnel syndrome) November 11, 2024 2:48pm Hypertension November 11, 2024 2:4 8pm Lumbar spondylosis with myelopathy November 11, 2024 2:48pm PAD (peripheral artery disease) November 112024 2:48pm Carpal tunnel syndrome of right wrist Ap ril 2024 10:20am Cervical spondylosis November 13, 2024 10 :20am Hx of fusion of cervical spine October 10:20am Chief Complaint Admit Date 2 wk po carpal tunnel December 18, 2024 11: 03am 4 mo f/u March 16, 2025 1: 39pm Reason for Visit Admit Date Carpal tunnel syndrome of right wrist Ma allan 2024 11:03am Benign prostatic hyperplasia with lower urinary tract symptoms March 16, 2025 1:39pm Cervical spondylosis with radiculopathy March 16, 2025 1:39pm CTS (carpal tunnel syndrome) February 1:39pm Gastroesophageal reflux dise ase with esophagitis without hemorrhage March 16, 2025 1:39pm Hypercholesterolemia March 16, 2025 1 :39pm Hypertension March 16, 2025 1: 39pm Lumbar spondylosis with myelopathy Augus t 2024 1:39pm Opiate analgesic use agreement exists Au germania 2024 1:39pm Additional Source Comments REASON FOR VISIT (unrecogniz ed section and content) ReasonCommentsDysphagiaReasonCommentsBladder ProblemReasonCommentsFollow-up2 week f/u perReasonCommentsFollow-upUrinary Retention and Back pain, D/C with a [facility].ReasonCommentsBladder ZynomwgAthyyq-xjYsxdbmVkirkarpXadlrc-hxXrbbmrAiujb DateCommentsDifficulty Gquyeqnrs58/11/2025Urinary Catheter Insertion or Check 11/07/2024ReasonCommentsBladder Problem (unrecognized sect ion and content) No Status Records FoundNo Status Records FoundNo Status Records FoundNo Status Records FoundNo Status Records FoundNo Status Records Found INFORMATION SOURCE (unrecogn ized section and content) DATE CREATED AUTHOR 11/03/2022 [facility] DATE CREATED AUTHOR AUTHOR'S ORGANIZ ATION 02/13/2024 [facility] DATE CREATED AUTHOR AUTHOR'S ORGANIZ ATION 05/15/2024 [facility] DATE CREATED AUTHOR AUTHOR'S ORGANIZ ATION 11/10/2024 [facility] DATE CREATED AUTHOR AUTHOR'S ORGANIZ ATION 02/21/2025 [facility] DATE CREATED AUTHOR AUTHOR'S ORGANIZ ATION 04/23/2025 [facility] Care Teams (unrecognized sec tion [...] Provider Active Start: April 13, 2024 David Radha ProviderActiveStart: April 13, 2024 Team Status: Inactive Member Role Status Dates Cameron Gaming DO Primary Care Provider Active Start: April 14, 2024 End: April 14, 2024Keturah Valdovinos ProviderActiveStart: April 14, 2024 End: April 14, 2024 [...] Cameron Gaming DO Primary Care Provider Active ImOlman Lloyd ProviderActive Team Status: Inactive Member Role Status Mariaelena Gaming DO Primary Care Provide r, Attending Provider Active Start: September 26, 2023 End: September 26, 2023 Team Status: Inactive Member Role Status Mariaelena Gaming DO Primary Care Provider Active Start: October 10, 2023 End: October 10, 2023Lesvia Noguera [employer]-CAttending ProviderActiveStart: October 10, 2023 End: October 10, 2023 Team Status: Inactive Member Role Status Mariaelena Gaming DO Primary Care Provider Active Start: October 11, 2023 End: October 11, 2023Lesvia Noguera [employer]-CAttending ProviderActiveStart: October 11, 2023 End: October 11, 2023 Team Status: Inactive Member Role Status Dates Cameron Gaming DO Primary Care Provider Active Start: October 18, 2023 End: October 17Olman Alatorre ProviderActiveStart: October 18, 2023 End: October 18, 2023 Team Status: Inactive Member Role Status Dates Cameron Gaming DO Primary Care Provider Active Start: October 24, 2023 End: October 24, 2023Olman Mcadams ProviderActiveStart: October 24, 2023 End: October 23Dorian Alatorre ProviderActiveStart: October 24, 2023 End: October 24, 2023 Team Status: Active Member Role Status Dates Cameron Ball , DO Primary Care Provider Active Start: October 24, 2023 Sushil Boss Rex , MDAttending ProviderActiveStart: October 24, 2023 Team Status: Inactive Member Role Status Dates Cameron Gaming DO Primary Care Provider Active Start: October 24, 2023 End: October 24, 2023uSshil Boss Rex , MDAttending ProviderActiveStart: October 24, 2023 End: October 24, 2023 Team Status: Inactive Member Role Status Dates Cameron Gaming DO Primary Care Provider Active Start: November 07, 2023 End: November 06amanda Adam , MDAttending ProviderActiveStart: November 07, 2023 End: November 07, 2023 Team Status: Inactive Member Role Status Dates Cameron Gaming DO Primary Care Provider Active Start: November 14, 2023 End: November 13amanda Adam , MDAttending ProviderActiveStart: November 14, 2023 End: November 14, 2023 Team Status: Active Member Role Status Dates Cameron Gaming DO Primary Care Provider Active Start: November 14, 2023 John Adam MDAttending Provider, Other ProviderActiveStart: November 14, 2023 Team Status: Active Member Role Status Dates Cameron Gaming DO Primary Care Provider Active Start: November 28, 2023 MABEL Hilliard-CAttending ProviderActiveStart: November 28, 2023 Team Status: Inactive Member Role Status Dates Cameron Gaming DO Primary Care Provider Active Start: November 28, 2023 End: December 01, 2023Lane Carlos , DOAdmit ProviderActiveStart: November 28, 2023 End: November 30ndkati Romero MDAttending ProviderActiveStart: November 28, 2023 End: November 30fernanda Mathur MDOther ProviderActiveStart: November 28, 2023 End: November 30dahlia Buchanan MDOther ProviderActiveStart: November 28, 2023 End: December 01, 2023 Team Status: Active Member Role Status Dates Cameron Gaming DO Primary Care Provider Active Start: November 29, 2023 Lane Carlos , DOAdmit ProviderActiveStart: November 29, 2023 George Romero MDOther ProviderActiveStart: November 29, 2023 Olman Phillips ProviderActiveStart: November 29, 2023 Team Status: Active Member Role Status Dates Cameron Gaming DO Primary Care Provider Active Start: December 04, 2023 Lakesha Jones Deshaunbrycebabatunde ProviderActiveStart: December 04, 2023 Team Status: Inactive Member Role Status Dates Cameron Gaming DO Primary Care Provide r, Attending Provider Active Start: December 06, 2023 End: December 06, 2023 Team Status: Active Member Role Status Dates Cameron Gaming DO Primary Care Provider Active Start: November 29, 2023 End: December 01, 2023Lane Carlos DOAdmit ProviderActiveStart: November 29, 2023 End: November 30ndAlejandro Yang ProviderActiveStart: November 29, 2023 End: November 30Olman Marin ProviderActiveStart: November 29, 2023 End: December 01, 2023 Team Status: Inactive Member Role Status Dates Cameron Gaming DO Primary Care Provide r, Attending Provider Active Start: April 18, 2024 End: April 18, 2024 Team Status: Active Member Role Status Dates Cameron Gaming DO Primary Care Provide r, Attending Provider Active Start: April 24, 2024 Team MemberRelationshipSpecialtyStart DateEnd Date Cameron Gaming MD [address] [id number] PCP - GeneralInternal Qxjyhyjn14/15/24Team MemberRelationshipSpecialtyStart Date End Date Cameron Gaming MD [address] [place] [id number] PCP - GeneralInternal Vbdmyjeu83/15/24Team MemberRelationshipSpecialtyStart Date End Date Cameron Gaming MD [address] [place] [address] PCP - GeneralInternal Pplxzwwm87/15/24 Team Status: Inactive Member Role Status Dates Cameron Gaming DO Primary Care Provide r, Attending Provider Active Start: May 21, 2024 End: May 21, 2024 Team Status: Inactive Member Role Status Dates Cameron Gaming DO Primary Care Provider Active Start: June 12, 2024 End: June 12, 2024Imajoycelyn Olman Nguyễn ProviderActiveStart: June 12, 2024 End: June 12, 2024 Team Status: Active Member Role Status Dates Cameron Gaming DO Primary Care Provider Active Start: June 12, 2024 Imad Gopi , DIVYAttending Provider, Other ProviderActiveStart: June 12, 2024 Team MemberRelationshipSpecialtyStart DateEnd Date Cameron Gaming DO [address] [place] [address] [facility]19 Team Status: Active Member Role Status Dates Cameron Gaming DO Primary Care Provide r, Attending Provider Active Start: July 11, 2024 Team Status: Inactive Member Role Status Dates Cmaeron Gaming DO Primary Care Provide r, Attending Provider Active Start: July 14, 2024 End: July 14, 2024 Team Status: Inactive Member Role Status Dates Cameron Gaming DO Primary Care Provide r, Attending Provider Active Start: August 25, 2024 End: August 25, 2024Team MemberRelationshipSpecialtyStart DateEnd Date Mekhi Cameron CuadraDO [address] [place] [address] PCP - GeneralInternal Medicine03/01/19Team MemberRelationshipSpecialtyStart Date End Date Cameron Gaming DO [address] [place] [address] PCP - GeneralInternal Medicine03/01/19Team MemberRelationshipSpecialtyStart Date End Date Cameron Gaming DO [address] [place] [address] PCP - GeneralInternal Medicine03/01/19Team MemberRelationshipSpecialtyStart Date End Date Cameron Gaming DO [address] [place] [address] PCP - [facility]03/01/19Team MemberRelationshipSpecialtyStart Date End Date Cameron Gaming DO [address] [place] [address] PCP - [facility]03/01/19Team MemberRelationshipSpecialtyStart Date End Date Cameron Gaming DO [address] [place] [address] PCP - [facility]03/01/19 Team Status: Inactive Member Role Status Dates Cameron Gaming DO Primary Care Provide r, Attending Provider Active Start: October 17, 2024 End: October 17, 2024Team MemberRelationshipSpecialtyStart DateEnd Date Cameron Gaming DO [address] [place] [address] PCP - [facility]03/01/19Team MemberRelationshipSpecialtyStart Date End Date Cameron Gaming DO [address] [place] [address] PCP - [facility]03/01/19 Team Status: Active Member Role Status Dates Cameron Gaming DO Primary Care Provide r, Attending Provider Active Start: November 07, 2024 Team Status: Inactive Member Role Status Dates Cameron Gaming DO Primary Care Provide r, Attending Provider Active Start: November 11, 2024 End: November 11, 2024Team MemberRelationshipSpecialtyStart DateEnd Date Cameron Gaming DO [address] [place] [address] PCP - [facility]03/01/19Team MemberRelationshipSpecialtyStart Date End Date Cameron Gaming DO [address] [place] [address] PCP - [facility]03/01/19Team MemberRelationshipSpecialtyStart Date End Date Cameron Gaming DO [address] [place] [address] PCP - [facility]03/01/19 Team Status: Inactive Member Role Status Dates Cameron Gaming DO Primary Care Provider Active Start: November 13, 2024 End: November 13, 2024Olman Wall ProviderActiveStart: November 13, 2024 End: November 13, 2024 Team Status: Inactive Member Role Status Dates Cameron Gaming DO Primary Care Provider Active Start: November 21, 2024 End: November 21, 2024Olman Wall ProviderActiveStart: November 21, 2024 End: November 21, 2024 Team Status: Inactive Member Role Status Dates Cameron Gaming DO Primary Care Provider Active Start: December 05, 2024 End: December 05, 2024Olman Wall ProviderActiveStart: December 05, 2024 End: December 05, 2024 Team Status: Active Member Role Status Dates Cameron Gaming DO Primary Care Provider Active Start: December 16, 2024 Olman Wall Provider, Other ProviderActiveStart: December 16, 2024 Team Status: Inactive Member Role Status Dates Cameron Gaming DO Primary Care Provider Active Start: December 18, 2024 End: December 18, 2024Olman Wall ProviderActiveStart: December 18, 2024 End: December 18, 2024Team MemberRelationshipSpecialtyStart DateEnd Date Cameron Gaming DO [address] [place] [address] PCP - [facility]03/01/19 Team Status: Inactive Member Role Status Dates Cameron Gaming DO Primary Care Provider Active Start: March 16, 2025 End: March 16ivette Gaming , Attending ProviderActiveStart: March 16, 2025 End: March 16, 2025 Goals (unrecognized section and content) Goals may [...] BE BASED ON THE PRIMARY CLINICAL RECORDS. [facility]. provides no warranty or guarantee of the accuracy or completeness of information in this document.
[2025-05-20 14:41] LABS: Alanine Aminotransferase 24 U/L (16-63); Albumin Globulin Ratio 1.1; Albumin Level 3.8 g/dL (3.4-5.0); Alkaline Phosphatase 191 U/L (46-116); Anion Gap 11.5; Aspartate Amino Transferase 23 U/L (15-37); Blood Urea Nitrogen 19.0 mg/dL (7.0-18.0); Calcium 9.6 mg/dL (8.5-10.1); Carbon Dioxide 31.8 mmol/L (21.0-32.0); Chloride 103 mmol/L (98-107); Estimated GFR (African America >60 (>=60 mL/min/1.73m^2); Estimated GFR (Non-African Ame >60 (>=60 mL/min/1.73m^2); Globulin 3.4 g/dL; Glucose 97 mg/dL (74-106); Potassium 4.3 mmol/L (3.5-5.1); Sodium 142 mmol/L (136-145); Thyroid Stimulating Hormone 1.585 uIU/mL (0.358-3.740); Total Protein 7.2 g/dL (6.4-8.2)
[2025-05-20 15:08] LABS: Ferritin 136.0 ng/mL (26.0-388.0); Folate 24.20 ng/mL (8.60-58.90)
[2025-05-20 15:53] LABS: Hematocrit 41.8 % (42.0-54.0); Hemoglobin 14.0 g/dL (14.0-18.0); Immature Granulocytes Abs Auto 0.01 10^3/uL (0.00-0.03); Immature Granulocytes Pct Auto 0.1 % (0.0-0.5); Lymphocytes Absolute Auto 1.6 10^3/uL (1.2-3.8); Mean Corpuscular HGB Conc 33.5 g/dL (29.9-35.2); Mean Corpuscular Hemoglobin 32.7 pg (25.9-34.0); Mean Corpuscular Volume 97.7 fL (80.0-94.0); Platelet Count 285 10^3/uL (150-450); Red Blood Count 4.28 10^6/uL (4.70-6.10); White Blood Count 9.5 10^3/uL (4.0-11.0)
[2025-05-21 07:08] LABS: Vitamin B12 >2000 pg/mL (232-1245)
== END 2025-05-20 13:51 | disposition home or self-care (01) ==
LOC: LAB 13:55
PROVIDERS: PCP Internal Medicine; Visit Provider Internal Medicine
DX: D64.9 Anemia, unspecified (principal); I10 Essential (primary) hypertension; R53.83 Other fatigue
CPT/HCPCS: 36415; 80053; 82607; 82728; 82746; 84443; 85025